=== PATIENT | female | born 1960 | race Caucasian/White ===

== ENCOUNTER 2017-09-12 14:00 | Inpatient (IN) | payer OTHER, SELFPAY ==
[2017-09-12] VITALS (7 sets, daily range): BP systolic 119–145; BP diastolic 57–80; PULSE 79–89; RESP 16; TEMP 36.6–36.8; O2SAT 97–99; BMI 22.0; BMI 22.1
--- NOTE | 2017-09-12 15:22 | EKG12_ITS ---
Test Reason : Blood Pressure : / mmHG Vent. Rate : 070 BPM Atrial Rate : 070 BPM P-R Int : 172 ms QRS Dur : 078 ms QT Int : 406 ms P-R-T Axes : 083 072 066 degrees QTc Int : 438 ms Normal sinus rhythm Normal ECG When compared with ECG of 16-AUG-2017 13:31, No significant change was found Confirmed by SHABANA MARTINES ([id number]), editorial cartoonist MARSHA CARROLL ([id number]) on 09/19/2017 11:40:39 AM Referred By: Andrés Helms Confirmed By:SHABANA MARTINES
--- NOTE | 2017-09-12 16:05 | HP.PCM_ITS ---
Problem List (1) Seizure disorder Status: Chronic (2) Hyponatremia Status: Acute History of Present Illness Date of Admission: 09/12/17 Chief Complaint: Abnormal labs The patient is a 57 year old F with PMHx with seizure disorder, chronic hyponatremia who comes in from her PCPs office with abnormal blood work suggestive of sodium of 123. Patient complains of his symptoms are only a few months old. She started having seizures as well as memory problems. Has followed up with a box sealing machine catcher 09/09/2017. Patient reports that she has had a PET scan done and biopsy of a nodule to follow-up for workup for lung cancer. She has stopped smoking. has her symptoms all written down. Patient admits to feeling very thirsty all the time and thinks maybe she drinks about 2 L of fluid every day. She has also recently followed up with a neurologist and was seen by the nurse practitioner who started her on Aricept and increase her Keppra to 750 mg twice daily. Complains of feeling fatigued, denies any fever or chills or shortness of breath. Denies passing large volumes of urine. Past Medical History Past Medical History (Chronic Problems): Chronic Problems (Last Reviewed 09/09/17 @ 13:38 by Denisse Chan) Seizure disorder (Chronic) Tobacco dependence in remission (Chronic) Allergies No Known Allergies Allergy (Verified 09/09/17 13:27) Home Medications: Ambulatory Orders Medication Instructions Recorded Donepezil HCl 10 mg PO QHS 09/12/17 Levetiracetam 750 mg PO Q12H 09/12/17 Surgical History: - - Bilateral carpal tunnel surgery, bilateral hammertoe surgery, lung biopsy Psychiatric History: No pertinent psych hx Lives: Spouse/ Significant Other Smoking Status: Former smoker Alcohol: Occasional Drugs: None - *Family History Maternal Family History: Family History (Last Reviewed 09/09/17 @ 13:27 by Denisse Chan) Mother Breast cancer Father Cancer History Items: - - no CVA Review of Systems Constitutional: Reports: Anorexia, Weakness. Denies: Chills, Fever, Weight Change HEENT: Denies: Head Aches, Hearing Changes, Sinus Congestion, Sinus Drainage Cardiovascular: Denies: Chest Pain, Claudication, Orthopnea, Palpitations, Paroxysmal Noc. Dyspnea Respiratory: Denies: Cough, Hemoptysis, Shortness of breath at rest, Sputum production Gastrointestinal: Denies: Abdominal Pain, Hematemesis, Hematochezia, Nausea, Vomiting Genitourinary: Denies: Dysuria, Frequency, Hematuria Musculoskeletal: Denies: Joint Pain, Joint Tenderness Skin: Denies: Rash, Wounds Neurological: Denies: Difficulty swallowing, Focal weakness, Numbness, Tingling Psychiatric: Denies: Anxiety, Depression, Homicidal Ideations, Suicidal Ideations Endocrine: Denies: Change in Body Habitus, Heat/ Cold Intolerance, Polyuria, Hx of Irradiation Hematologic/ Lymphatic: Denies: Easy Bruising, Easy Bleeding VTE Information - Inpt Only VTE Present on Admission: No VTE Pharm Prophylaxis ordered?: Yes - Physical Exam General: Alert, Oriented x3, Cooperative, No apparent distress HEENT: Atraumatic, PERRLA, EOMI, Normocephalic Neck: Supple Lungs: Clear to auscultation, Normal air movement Cardiovascular: Regular rate, Regular Rhythm, Normal S1, Normal S2, No murmurs Abdomen: Bowel Sounds Present, Soft, Non Tender, Non-Distended, No Hepato- splenomegaly Extremities: No edema Skin: No rashes, No breakdown Musculoskeletal: No Tenderness to Palpation of Joints or Extremities Lymphatic: No Cervical, Supraclavicular, or Inguinal Adenopathy Neurological: Cranial nerves II-XII grossly intact Psych/Mental Status: Normal Affect, Flat Affect - easily tearing up. Vital Signs Temp Pulse Resp BP Pulse Ox 97.9 F 79 16 124/73 H 99 09/12/17 14:40 09/12/17 15:11 09/12/17 14:40 09/12/17 14:42 09/12/17 14:40 Oxygen Delivery Method Room Air Weight: 62 kg Body Mass Index (BMI) 22.0 Finger Stick Blood Glucose 97 Assessment/Plan 57-year-old female with recent history of seizure disorder, amnesia/cognitive impairment, chronic hyponatremia, ongoing since the last 2 months, former smoker , history of lung nodule status post biopsy( PER PATIENT, DO NOT SEE IT IN THE SYSTEM) in as a direct admit with abnormal blood work 1. Hyponatremia, chronic, goes all the way back to July 2017, no acute change from baseline of around 126, repeat sodium in the hospital is 126 from 123, sending for possible SIADH. Plan: admit patient to PCU, workup for hyponatremia in place with urine sodium, urine electrolytes, urine creatinine, urine osmolality, continue gentle IV fluids, will also check TSH, nephrology consult, repeat blood work in a.m. 2. Seizure disorder, on Keppra, will put on seizure precautions 3. History of lung nodule, status post recent lung biopsy box sealing machine catcher consulted 4. Cognitive impairment, following with neurology, started on Aricept, will continue on that with monitoring of heart rate 5. DVT PPx - Lovenox SC Code Visit Inpatient E&M: [id number] Init Hosp L3
[2017-09-12 16:18] LABS: Hemoglobin 11.6 g/dl (12.0-15.0); Mean Corp Hgb Conc 35.2 g/gl (32-36); Mean Platelet Vol. 8.6 fl (6.2-12.0); Platelet Count 278 K/mm3 (150-450); RBC Distribution Width CV 12.4 % (11.6-14.6); Red Blood Count 3.51 M/mm3 (4.2-5.4); White Blood Count 4.1 K/mm3 (4.4-11.0)
[2017-09-12 16:21] LABS: Scan Indicated on CBC? Y/N NO
--- NOTE | 2017-09-12 16:28 | EKG12_ITS ---
Test Reason : Blood Pressure : / mmHG Vent. Rate : 069 BPM Atrial Rate : 069 BPM P-R Int : 176 ms QRS Dur : 084 ms QT Int : 408 ms P-R-T Axes : 082 068 063 degrees QTc Int : 437 ms Normal sinus rhythm Normal ECG When compared with ECG of 12-SEP-2017 15:38, MANUAL COMPARISON REQUIRED, DATA IS UNCONFIRMED Confirmed by SHABANA MARTINES ([id number]), assignment desk editor MARSHA CARROLL ([id number]) on 09/19/2017 11:47:44 AM Referred By: Andrés Helms Confirmed By:SHABANA MARTINES
[2017-09-12 16:30] LABS: ALB/GLOB Ratio 1.1 RATIO (0.9-2.4); AST(SGOT) 22 U/L (15-37); Alanine Aminotransfer ALT/SGPT 36 U/L (12-78); Albumin, Serum 3.6 g/dL (3.4-5.0); Alkaline Phosphatase 78 U/L (45-117); Anion Gap 7 (5-15); BUN 6 mg/dL (7-18); BUN/Creat Ratio 9.7 RATIO (10-20); Calcium,Total 8.3 mg/dL (8.5-10.1); Chloride 92 mmol/L (98-107); Creatinine, Serum 0.62 mg/dL (0.55-1.02); EST Glomerular Filtration Rate 105 mL/min (>60); Est Glom Filt Rate - Afr Amer 127 mL/min (>60); Estimated Creatinine Clearance 91.46 ml/min; Globulin 3.3 g/dL (2.2-4.2); Glucose 86 mg/dL (70-110); Magnesium 1.9 mg/dL (1.6-2.6); Protein, Total 6.9 g/dL (6.4-8.2); Sodium Level 126 mmol/L (136-145)
[2017-09-12 16:42] LABS: Osmolality, Serum 258 mOsm/KG (275-295)
[2017-09-12] MEDS: Enoxaparin 40 MG/0.4 ML Syringe SC (16:52)
[2017-09-12] MEDS: 0.9% Normal Saline 1,000 ML 75 ML IV (16:52)
[2017-09-12 18:34] LABS: Bacteria 0 SEEN /hpf (None Seen); Mucous, Urine 0 SEEN /hpf (<or=2+); White Blood Cells 0 SEEN /hpf (0-5)
[2017-09-12 18:38] LABS: Color, Urine Straw (Yellow); Glucose, Dipstick Normal (Normal); Ketone-Dipstick Negative (Negative); Leukocyte Esterase-Dipstick Negative /ul (Negative); Nitrite-Dipstick Negative (Negative); Occult Blood-Urine 150 /ul (Negative); Protein-Dipstick Negative (Negative); Urine Bilirubin Dipstick Negative (Negative); Urine Clarity Clear (Clear); Urine Urobilinogen Normal (Normal)
[2017-09-12 19:00] LABS: Protein, Urine (Random) < 6.0 mg/dL (<11.9)
[2017-09-12 19:03] LABS: Urine Chloride 83 mmol/L (Not Establ.); Urine Sodium 87 mmol/L (Not Establ.)
[2017-09-12 19:11] LABS: Red Blood Cells-Urine 5-10 SEEN /hpf (0-5); Squamous Epithelial Cells - UA 0-5 SEEN /hpf (5-10)
[2017-09-12 19:22] LABS: Osmolality, Urine 279 mOsm/KG
[2017-09-12] MEDS: levETIRAcetam 750 MG Tablet PO (20:14)
[2017-09-12 20:17] LABS: Thyroid Stim Hormone (TSH) 0.58 uIU/mL (0.358-3.74)
[2017-09-13] VITALS (7 sets, daily range): BP systolic 130–135; BP diastolic 65–70; PULSE 67–89; RESP 12–18; TEMP 36.7–36.8; O2SAT 97–99
[2017-09-13 06:05] LABS: Absolute Lymphocyte Count 1.31 X10^3/ul (0.83-4.51); Absolute Neutrophil Count 2.1 X10^3/uL (2.0-7.7); Basophil# 0.04 X10^3/uL; Basophil% 0.9 % (0-1); Eosinophil# 0.19 X10^3/uL; Eosinophils% 4.4 % (0-5); Hematocrit 32.5 % (37-47); Hemoglobin 11.2 g/dl (12.0-15.0); Lymphocyte # 1.31 X10^3/ul (4.0); Mean Corp Hgb Conc 34.5 g/gl (32-36); Mean Corpuscular Hgb 32.4 pg (27.0-32.0); Mean Corpuscular Volume 93.9 fL (81-99); Mean Platelet Vol. 8.6 fl (6.2-12.0); Monocyte# 0.73 X10^3/uL; Monocyte% 16.7 % (0-10); Neutrophil # 2.08 X10^3/uL (2.7-7.7); Neutrophil % 47.8 % (47-70); Platelet Count 284 K/mm3 (150-450); RBC Distribution Width CV 12.5 % (11.6-14.6); RBC Distribution Width SD 42.2 fl (35.1-43.9); Red Blood Count 3.46 M/mm3 (4.2-5.4); White Blood Count 4.4 K/mm3 (4.4-11.0)
[2017-09-13 06:06] LABS: POSITIVE COUNT NO; POSITIVE DIFFERENTIAL NO; POSITIVE MORPHOLOGY NO
[2017-09-13 06:11] LABS: Prothrombin Time (Protime)PT. 12.8 SECONDS (11.7-14.9)
[2017-09-13 06:22] LABS: Anion Gap 7 (5-15); BUN 7 mg/dL (7-18); BUN/Creat Ratio 11.1 RATIO (10-20); Calcium,Total 8.5 mg/dL (8.5-10.1); Chloride 97 mmol/L (98-107); Creatinine, Serum 0.63 mg/dL (0.55-1.02); EST Glomerular Filtration Rate 103 mL/min (>60); Est Glom Filt Rate - Afr Amer 125 mL/min (>60); Estimated Creatinine Clearance 90.01 ml/min; Glucose 82 mg/dL (70-110); Sodium Level 130 mmol/L (136-145)
--- NOTE | 2017-09-13 08:41 | CON.PCM_ITS ---
Problem List (1) Lung nodule Status: Acute (2) Hyponatremia Status: Acute (3) Seizure disorder Status: Chronic (4) Tobacco dependence in remission Status: Chronic (5) Abnormal CAT scan Status: Acute (6) TGA (transient global amnesia) Status: Acute Reason for Consult Date of Consultation: 09/13/17 Reason for Consultation: lung nodule, ?SIADH History of Present Illness: The patient is a 57 year old F with a past medical history as below, multiple presentations to the emergency room for altered mental status/seizures, recently seen in the pulmonary clinic on 09/[address] Vargas, presents to [facility] as a direct admit from her PCPs office for abnormal blood work, hyponatremia. 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 She reports she started having seizures and memory problems a couple of months ago and is following with neurology. Her medications have been adjusted for persistent seizures. CTA chest was obtained on 08/29/17 and showed evidence of subcarinal and bilateral hilar adenopathy, along with a 4 mm noncalcified lung nodule in the right lower lobe. There was additional note of a potential lytic lesion in the patient's spine. The patient had a PET scan on 09/06/17 at [facility] in [place] which revealed hypermetabolic mediastinal lymphadenopathy, concerning for malignant process. There is also asymmetric increased activity within the right subscapularis muscle without underlying mass or abnormality, possibly related to trauma. There were multiple subcentimeter lung nodules, which findings were too small to be accurately characterized by PET. There are also findings concerning for right breast implant rupture. At her pulmonary visit 09/09/17, the abnormal CTA of the chest findings were reviewed with patient and she decided to proceed with a mediastinal lymph node evaluation via EBUS. According to the medical record, the patient is scheduled for biopsy on 09/27/17. She has quit smoking. She does have an extensive smoking history of 2 packs a day for 40 years (80 pack years). Patient reports her last seizure was on Saturday. She denies any need for oxygen supplementation at home. Patient denies any shortness of breath, chest pain or tightness, cough, sputum production, hemoptysis, weakness, palpitations, or orthopnea. She denies any headaches or dizziness. She denies any muscle cramping. She reports she typically drinks beer on the weekends, on average she will have 2 beers on Saturday and 2 beers on Saturday. Otherwise, her states he does not allow her to drink anymore than that. Blood work on arrival revealed WBC of 4.1, hemoglobin 11.6 and hematocrit 33. Sodium was low at 126 and chloride 92. When 6 and creatinine of 0.62. Osmolality was low at 258. Calcium 8.3. TSH on the low side of normal at 0.58 and liver function tests were normal. Urinalysis was negative for infection, urine osmolality 279. Urine sodium 87. There was blood in her urine. Past Medical History Past Medical History (Chronic Problems): Chronic Problems (Last Reviewed 09/09/17 @ 13:38 by Denisse Chan) Seizure disorder (Chronic) Tobacco dependence in remission (Chronic) Allergies No Known Allergies Allergy (Verified 09/09/17 13:27) Home Medications: Ambulatory Orders Medication Instructions Recorded Donepezil HCl 10 mg PO QHS 09/12/17 Levetiracetam 750 mg PO Q12H 09/12/17 Surgical History: - - Bilateral carpal tunnel surgery, bilateral hammertoe surgery, lung biopsy Psychiatric History: No pertinent psych hx Lives: Spouse/ Significant Other Smoking Status: Former smoker Tobacco Use: Cigarettes Alcohol: Occasional - total 4 beers/weekend, none thru the week Drugs: None - *Family History Maternal Family History: Family History (Last Reviewed 09/09/17 @ 13:27 by Denisse Chan) Mother Breast cancer Father Cancer History Items: - - no CVA Review of Systems Constitutional: Reports: Anorexia. Denies: Chills, Fever, Night Sweats, Malaise , Weakness, Weight Change, Fatigue Eyes: Denies: Blurred vision, Double vision, Vision Change HEENT: Reports: Sinus Congestion. Denies: Difficulty Swallowing, Head Aches, Nasal bleeding, Nasal Congestion, Post Nasal Drip, Sinus Drainage, Sore Throat, Visual Changes Cardiovascular: Denies: Chest Pain, Chest Tightness, Edema, Light Headedness, Orthopnea, Palpitations, Paroxysmal Noc. Dyspnea, Syncope Respiratory: Denies: Cough, Hemoptysis, Shortness of Breath, Sputum production, Wheezing Gastrointestinal: Denies: Abdominal Pain, Constipation, Diarrhea, Dyspepsia, Hematemesis, Hematochezia, Nausea, Melena, Vomiting Genitourinary: Denies: Dysuria, Hematuria Musculoskeletal: Denies: Muscle pain, Neck Pain Skin: Denies: Dryness, Pruritis, Rash Neurological: Reports: Seizures. Denies: Change in Speech, Confusion, Difficulty swallowing, Focal weakness, Headaches, Numbness, Tingling, Tremor Psychiatric: Reports: Anxiety, Depression. Denies: Suicidal Ideations Endocrine: Reports: Polydipsia. Denies: Change in Body Habitus, Polyuria, Hx of Thyroiditis Hematologic/ Lymphatic: Denies: Adenopathy, Anemia, Easy Bruising, Easy Bleeding , Hx of blood clot Patient Problems: Active and Suspected Problems (Last Reviewed 09/09/17 @ 13:38 by Denisse Chan ) Lung nodule (Acute) Subjective: Patient was seen and examined. She is sitting up in the chair with her present. She is quite tearful. States she just wants to go home. Denies any respiratory issues, no shortness of breath, chest pain, palpitations, cough, sputum production. No nausea or vomiting. Reports she has been trying to control her hyponatremia at home by eating a lot of salt every chance she gets. Patient reports less confusion this morning, confirms. Objective: No acute events overnight. Patient remains afebrile and hemodynamically stable. She is saturating in the upper 90s on room air. - Physical Exam General: Alert, Oriented x3, Cooperative, No apparent distress, - - tearful HEENT: Atraumatic, Normocephalic Oral: Moist Mucosa, No Gingival or Mucosal Lesions/ Ulcerations Neck: Supple, No Nodes, Trachea Midline Lungs: Clear to auscultation, No rhonchi, No wheeze, No rales, Diminished Cardiovascular: Regular rate, Regular Rhythm, Normal S1, Normal S2, No murmurs, No rub noted, No Gallop Abdomen: Bowel Sounds Present, Soft, Non Tender, Non-Distended Extremities: No clubbing, No cyanosis, No edema, Capillary Refill Less than 3 Seconds, No Calf Tenderness, Peripheral Pulses Normal Skin: No rashes, No breakdown Musculoskeletal: No Tenderness to Palpation of Joints or Extremities Lymphatic: - - no lymphadenopathy noted Neurological: Cranial nerves II-XII grossly intact, Neuro grossly intact, Motor Exam 5/5 strength throughout Psych/Mental Status: Appropriate, Depressed, - - tearful. cooperative and conversive. Vital Signs Temp Pulse Resp BP Pulse Ox 98.3 F 80 18 130/65 H 97 09/13/17 03:00 09/13/17 03:02 09/13/17 03:00 09/13/17 03:00 09/13/17 03:00 Oxygen Delivery Method Room Air Weight: 136 lb 10.986 oz Body Mass Index (BMI) 22.0 Finger Stick Blood Glucose 97 Intake and Output for Last 24 Hours 09/11/17 09/12/17 09/13/17 23:59 23:59 23:59 Intake Total 1274 / 1274 412 / 412 Balance 1274 / 1274 412 / 412 Laboratory Tests Past 24 Hrs 09/12/17 09/12/17 09/12/17 15:51 15:51 15:51 WBC 4.1 L RBC 3.51 L Hgb 11.6 L Hct 33.0 L MCV 94.0 MCH 33.0 H MCHC 35.2 RDW 12.4 RDW Differential 42.0 Plt Count 278 MPV 8.6 Immature Gran % (Auto) Neut % (Auto) Lymph % (Auto) [place] % (Auto) Eos % (Auto) Baso % (Auto) Absolute Neuts (auto) Absolute Lymphs (auto) Total Counted PT INR Sodium 126 L Potassium 4.0 Chloride 92 L Carbon Dioxide 27.0 Anion Gap 7 BUN 6 L Creatinine 0.62 Estim Creat Clear Calc 91.46 Est GFR (MDRD) Af Amer 127 Est GFR (MDRD) Non-Af 105 BUN/Creatinine Ratio 9.7 L Glucose 86 Serum Osmolality 258 L Calcium 8.3 L Magnesium 1.9 Total Bilirubin 0.60 AST 22 ALT 36 Alkaline Phosphatase 78 Total Protein 6.9 Albumin 3.6 Globulin 3.3 Albumin/Globulin Ratio 1.1 TSH Urine Color Urine Clarity Urine pH Ur Specific [place] Urine Protein Urine Glucose (UA) Urine Ketones Urine Occult Blood Urine Nitrite Urine Bilirubin Urine Urobilinogen Ur Leukocyte Esterase Urine RBC Urine WBC Ur Squamous Epith Cells Urine Bacteria Urine Mucus Urine Osmolality U Random Total Protein Ur Random Sodium Urine Creatinine Urine Potassium Urine Chloride 09/12/17 09/12/17 09/12/17 15:51 17:30 17:30 WBC RBC Hgb Hct MCV MCH MCHC RDW RDW Differential Plt Count MPV Immature Gran % (Auto) Neut % (Auto) Lymph % (Auto) [place] % (Auto) Eos % (Auto) Baso % (Auto) Absolute Neuts (auto) Absolute Lymphs (auto) Total Counted PT INR Sodium Potassium Chloride Carbon Dioxide Anion Gap BUN Creatinine Estim Creat Clear Calc Est GFR (MDRD) Af Amer Est GFR (MDRD) Non-Af BUN/Creatinine Ratio Glucose Serum Osmolality Calcium Magnesium Total Bilirubin AST ALT Alkaline Phosphatase Total Protein Albumin Globulin Albumin/Globulin Ratio TSH 0.58 Urine Color Urine Clarity Urine pH Ur Specific [place] Urine Protein Urine Glucose (UA) Urine Ketones Urine Occult Blood Urine Nitrite Urine Bilirubin Urine Urobilinogen Ur Leukocyte Esterase Urine RBC Urine WBC Ur Squamous Epith Cells Urine Bacteria Urine Mucus Urine Osmolality 279 U Random Total Protein Ur Random Sodium Urine Creatinine 24.30 Urine Potassium Urine Chloride 09/12/17 09/12/17 09/12/17 17:30 17:30 17:30 WBC RBC Hgb Hct MCV MCH MCHC RDW RDW Differential Plt Count MPV Immature Gran % (Auto) Neut % (Auto) Lymph % (Auto) [place] % (Auto) Eos % (Auto) Baso % (Auto) Absolute Neuts (auto) Absolute Lymphs (auto) Total Counted PT INR Sodium Potassium Chloride Carbon Dioxide Anion Gap BUN Creatinine Estim Creat Clear Calc Est GFR (MDRD) Af Amer Est GFR (MDRD) Non-Af BUN/Creatinine Ratio Glucose Serum Osmolality Calcium Magnesium Total Bilirubin AST ALT Alkaline Phosphatase Total Protein Albumin Globulin Albumin/Globulin Ratio TSH Urine Color Straw Urine Clarity Clear Urine pH 7.0 Ur Specific [place] 1.010 Urine Protein Negative Urine Glucose (UA) Normal Urine Ketones Negative Urine Occult Blood 150 H Urine Nitrite Negative Urine Bilirubin Negative Urine Urobilinogen Normal Ur Leukocyte Esterase Negative Urine RBC 5-10 SEEN Urine WBC 0 SEEN Ur Squamous Epith Cells 0-5 SEEN Urine Bacteria 0 SEEN Urine Mucus 0 SEEN Urine Osmolality U Random Total Protein < 6.0 Ur Random Sodium 87 Urine Creatinine Urine Potassium 23.0 Urine Chloride 83 09/13/17 09/13/17 09/13/17 05:36 05:36 05:36 WBC 4.4 RBC 3.46 L Hgb 11.2 L Hct 32.5 L MCV 93.9 MCH 32.4 H MCHC 34.5 RDW 12.5 RDW Differential 42.2 Plt Count 284 MPV 8.6 Immature Gran % (Auto) 0.200 Neut % (Auto) 47.8 Lymph % (Auto) 30.0 [place] % (Auto) 16.7 H Eos % (Auto) 4.4 Baso % (Auto) 0.9 Absolute Neuts (auto) 2.1 Absolute Lymphs (auto) 1.31 Total Counted Not Reportable PT 12.8 INR 1.0 Sodium 130 L Potassium 4.0 Chloride 97 L Carbon Dioxide 26.0 Anion Gap 7 BUN 7 Creatinine 0.63 Estim Creat Clear Calc 90.01 Est GFR (MDRD) Af Amer 125 Est GFR (MDRD) Non-Af 103 BUN/Creatinine Ratio 11.1 Glucose 82 Serum Osmolality Calcium 8.5 Magnesium Total Bilirubin AST ALT Alkaline Phosphatase Total Protein Albumin Globulin Albumin/Globulin Ratio TSH Urine Color Urine Clarity Urine pH Ur Specific [place] Urine Protein Urine Glucose (UA) Urine Ketones Urine Occult Blood Urine Nitrite Urine Bilirubin Urine Urobilinogen Ur Leukocyte Esterase Urine RBC Urine WBC Ur Squamous Epith Cells Urine Bacteria Urine Mucus Urine Osmolality U Random Total Protein Ur Random Sodium Urine Creatinine Urine Potassium Urine Chloride Assessment/Plan Active and Suspected Problems (Last Reviewed 09/09/17 @ 13:38 by Denisse Chan ) Lung nodule (Acute) RECOMMENDATIONS 1. Daily BMP 2. Increase activity as tolerated, with assist secondary to fall risk 3. Restrict water intake 4. Await nephrology consultation 5. Continue Aricept and Keppra 6. Plan to proceed with lung biopsy on 09/27. 7. Patient would benefit from baseline pulmonary function tests in the future IMPRESSIONS 1. Lung nodule CT of the chest 08/29 was negative for PE and showed mediastinal and right hilar adenopathy. There was a 4 mm noncalcified nodule in the right lower lobe and portable lytic lesion in vertebral body of T7-T8. PET scan revealed hypermetabolic mediastinal lymphadenopathy, concerning for malignant process. There is also asymmetric increased activity within the right subscapularis muscle without underlying mass or abnormality, possibly related to trauma. There were multiple subcentimeter lung nodules, which findings were too small to be accurately characterized by PET. There are also findings concerning for right breast implant rupture. Patient is currently not having any chest pain, shortness of breath, cough or sputum production, hemoptysis. She is anxious to have biopsy and have a diagnosis. Patient not requiring any oxygen supplementation at this time. Her lung nodules are possible etiology of her hyponatremia, workup is currently underway. 2. Hyponatremia See #1. Serum osmolality low at 258, urine osmolality 279. Urine random sodium 87. Nephrology has been consulted. Patient does drink beer, on average 4 beers per weekend but none through the week. Unlikely hyponatremia related to alcohol intake. Having symptoms of seizures and confusion. She is not on any diuretics her GFR is 103. May have some adrenal insufficiency, workup underway. 3. Seizure disorder/cognitive disorder/Tobacco abuse, in remission Complicates care, management, recovery, and prognosis. Ongoing smoking cessation was encouraged. Patient quit smoking on August 16, 2017. Patient should continue to be monitored for seizures. She is following with neurology. Patient recently had a mammogram which did not detect any masses. This note was generated with [employer] dictation software. It may contain incorrect words, spelling, and punctuation that were not noted in checking the note before signing.
[2017-09-13] MEDS: levETIRAcetam 750 MG Tablet PO (09:27)
[2017-09-13] MEDS: Enoxaparin 40 MG/0.4 ML Syringe SC (09:28)
--- NOTE | 2017-09-13 11:13 | CASEMGMT ---
This RN CM to room to complete CM assessment and Physical therapy is at bedside with pt at this time. SStaten RN CM
--- NOTE | 2017-09-13 14:34 | PCM.CONS.R ---
Problem List (1) Hyponatremia Status: Acute Consultation - Renal 09/13/17 PCP/ Referring MD: Requesting physician: Dr Patel Primary care physician: Andrés Helms MD Reason for Consultation:: hyponatremia - History of Present Illness History of Present Illness: The patient is a 57 year old F admitted to the hospital after she was asked to comment due to low sodium values. Apparently she has never had any medical issues since July. Since then he has had several hospitalizations related to altered mental status, seizures. Recently diagnosed with possible malignancy Had a biopsy. She was told that results show malignancy. I do not see that pathology report Sodium values were 123 as outpatient. 126 yesterday and up to 130 today. denies any new complaints - Allergies Allergies: Allergies No Known Allergies Allergy (Verified 09/09/17 13:27) - Current Medications Current Medications: Current Medications Al Hydroxide/Mg Hydroxide (Mylanta Ii) 30 ml PO Q6H PRN PRN PRN Reason: Gastric burning Donepezil HCl (Aricept) 10 mg PO QHS [facility] Last Admin: 09/12/17 19:40 Dose: Not Given Enoxaparin Sodium (Lovenox) 40 mg SC DAILY@1000 CORA Last Admin: 09/13/17 09:28 Dose: 40 mg Levetiracetam (Keppra) 750 mg PO Q12H [facility] Last Admin: 09/13/17 09:27 Dose: 750 mg Ondansetron HCl (Zofran) 4 mg IV Q8H PRN PRN PRN Reason: NAUSEA Promethazine HCl (Phenergan (Ll)) 12.5 mg IV Q6H PRN PRN PRN Reason: NAUSEA/VOMITING Psyllium Hydrophilic Mucilloid (Metamucil) 1 packet PO DAILY PRN PRN PRN Reason: CONSTIPATION Senna/Docusate Sodium (Senokot-S, Belkys-Colace) 2 tablet PO BID PRN PRN Reason: Constipation Sodium Chloride () 5 - 30 ml IV UD PRN PRN Reason: SALINE FLUSH Zolpidem Tartrate (Ambien (Generic)) 5 mg PO QHS PRN PRN PRN Reason: INSOMNIA - Past Medical History Past Medical History (Chronic Problems): Chronic Problems (Last Reviewed 09/09/17 @ 13:38 by Denisse Chan) Seizure disorder (Chronic) Tobacco dependence in remission (Chronic) - Past Surgical History Surgical History: - - Bilateral carpal tunnel surgery, bilateral hammertoe surgery, lung biopsy - Social History Smoking Status: Former smoker Alcohol: Occasional - total 4 beers/weekend, none thru the week Drugs: None - Family History Maternal Family History: Family History (Last Reviewed 09/09/17 @ 13:27 by Denisse Chan) Mother Breast cancer Father Cancer History Items: - - no CVA Review of Systems Constitutional: Denies: Chills, Fever, Weight Change HEENT: Denies: Head Aches, Sinus Congestion, Sinus Drainage Cardiovascular: Denies: Chest Pain, Palpitations Respiratory: Denies: Cough, Shortness of breath at rest, Sputum production Gastrointestinal: Denies: Abdominal Pain, Nausea, Vomiting Genitourinary: Denies: Dysuria Musculoskeletal: Denies: Joint Pain, Joint Tenderness Skin: Denies: Rash, Wounds Neurological: Denies: Numbness, Tingling, Focal weakness Psychiatric: Denies: Anxiety, Depression, Homicidal Ideations, Suicidal Ideations Hematologic/ Lymphatic: Denies: Easy Bruising, Easy Bleeding Patient Problems: Active and Suspected Problems (Last Reviewed 09/09/17 @ 13:38 by Denisse Chan) Lung nodule (Acute) - Physical Exam General: Alert, Oriented x3, Cooperative HEENT: Atraumatic, PERRLA, EOMI, Normocephalic Neck: Supple, No JVD, Negative Carotid Bruits Lungs: Clear to auscultation, Normal air movement Cardiovascular: Regular rate, No murmurs Abdomen: Bowel Sounds Present, Soft, Non Tender Extremities: No edema, Capillary Refill Less than 3 Seconds Skin: No rashes, No breakdown Musculoskeletal: No Tenderness to Palpation of Joints or Extremities Neurological: Cranial nerves II-XII grossly intact Psych/Mental Status: Normal Affect, Appropriate Vital Signs Temp Pulse Resp BP Pulse Ox 98.3 F 82 16 135/66 H 99 09/13/17 09:25 09/13/17 11:00 09/13/17 09:25 09/13/17 09:25 09/13/17 10:33 Oxygen Delivery Method Room Air Weight: 62 kg Body Mass Index (BMI) 22.0 Finger Stick Blood Glucose 97 Intake and Output for Last 24 Hours 09/11/17 09/12/17 09/13/17 23:59 23:59 23:59 Intake Total 1274 / 1274 592 / 592 Balance 1274 / 1274 592 / 592 Laboratory Tests Past 24 Hrs 09/12/17 09/12/17 09/12/17 15:51 15:51 15:51 WBC 4.1 L RBC 3.51 L Hgb 11.6 L Hct 33.0 L MCV 94.0 MCH 33.0 H MCHC 35.2 RDW 12.4 RDW Differential 42.0 Plt Count 278 MPV 8.6 Immature Gran % (Auto) Neut % (Auto) Lymph % (Auto) Luce % (Auto) Eos % (Auto) Baso % (Auto) Absolute Neuts (auto) Absolute Lymphs (auto) Total Counted PT INR Sodium 126 L Potassium 4.0 Chloride 92 L Carbon Dioxide 27.0 Anion Gap 7 BUN 6 L Creatinine 0.62 Estim Creat Clear Calc 91.46 Est GFR (MDRD) Af Amer 127 Est GFR (MDRD) Non-Af 105 BUN/Creatinine Ratio 9.7 L Glucose 86 Serum Osmolality 258 L Calcium 8.3 L Magnesium 1.9 Total Bilirubin 0.60 AST 22 ALT 36 Alkaline Phosphatase 78 Total Protein 6.9 Albumin 3.6 Globulin 3.3 Albumin/Globulin Ratio 1.1 TSH Urine Color Urine Clarity Urine pH Ur Specific [place] Urine Protein Urine Glucose (UA) Urine Ketones Urine Occult Blood Urine Nitrite Urine Bilirubin Urine Urobilinogen Ur Leukocyte Esterase Urine RBC Urine WBC Ur Squamous Epith Cells Urine Bacteria Urine Mucus Urine Osmolality U Random Total Protein Ur Random Sodium Urine Creatinine Urine Potassium Urine Chloride 09/12/17 09/12/17 09/12/17 15:51 17:30 17:30 WBC RBC Hgb Hct MCV MCH MCHC RDW RDW Differential Plt Count MPV Immature Gran % (Auto) Neut % (Auto) Lymph % (Auto) Luce % (Auto) Eos % (Auto) Baso % (Auto) Absolute Neuts (auto) Absolute Lymphs (auto) Total Counted PT INR Sodium Potassium Chloride Carbon Dioxide Anion Gap BUN Creatinine Estim Creat Clear Calc Est GFR (MDRD) Af Amer Est GFR (MDRD) Non-Af BUN/Creatinine Ratio Glucose Serum Osmolality Calcium Magnesium Total Bilirubin AST ALT Alkaline Phosphatase Total Protein Albumin Globulin Albumin/Globulin Ratio TSH 0.58 Urine Color Urine Clarity Urine pH Ur Specific [place] Urine Protein Urine Glucose (UA) Urine Ketones Urine Occult Blood Urine Nitrite Urine Bilirubin Urine Urobilinogen Ur Leukocyte Esterase Urine RBC Urine WBC Ur Squamous Epith Cells Urine Bacteria Urine Mucus Urine Osmolality 279 U Random Total Protein Ur Random Sodium Urine Creatinine 24.30 Urine Potassium Urine Chloride 09/12/17 09/12/17 09/12/17 17:30 17:30 17:30 WBC RBC Hgb Hct MCV MCH MCHC RDW RDW Differential Plt Count MPV Immature Gran % (Auto) Neut % (Auto) Lymph % (Auto) Luce % (Auto) Eos % (Auto) Baso % (Auto) Absolute Neuts (auto) Absolute Lymphs (auto) Total Counted PT INR Sodium Potassium Chloride Carbon Dioxide Anion Gap BUN Creatinine Estim Creat Clear Calc Est GFR (MDRD) Af Amer Est GFR (MDRD) Non-Af BUN/Creatinine Ratio Glucose Serum Osmolality Calcium Magnesium Total Bilirubin AST ALT Alkaline Phosphatase Total Protein Albumin Globulin Albumin/Globulin Ratio TSH Urine Color Straw Urine Clarity Clear Urine pH 7.0 Ur Specific [place] 1.010 Urine Protein Negative Urine Glucose (UA) Normal Urine Ketones Negative Urine Occult Blood 150 H Urine Nitrite Negative Urine Bilirubin Negative Urine Urobilinogen Normal Ur Leukocyte Esterase Negative Urine RBC 5-10 SEEN Urine WBC 0 SEEN Ur Squamous Epith Cells 0-5 SEEN Urine Bacteria 0 SEEN Urine Mucus 0 SEEN Urine Osmolality U Random Total Protein < 6.0 Ur Random Sodium 87 Urine Creatinine Urine Potassium 23.0 Urine Chloride 83 09/13/17 09/13/17 09/13/17 05:36 05:36 05:36 WBC 4.4 RBC 3.46 L Hgb 11.2 L Hct 32.5 L MCV 93.9 MCH 32.4 H MCHC 34.5 RDW 12.5 RDW Differential 42.2 Plt Count 284 MPV 8.6 Immature Gran % (Auto) 0.200 Neut % (Auto) 47.8 Lymph % (Auto) 30.0 Luce % (Auto) 16.7 H Eos % (Auto) 4.4 Baso % (Auto) 0.9 Absolute Neuts (auto) 2.1 Absolute Lymphs (auto) 1.31 Total Counted Not Reportable PT 12.8 INR 1.0 Sodium 130 L Potassium 4.0 Chloride 97 L Carbon Dioxide 26.0 Anion Gap 7 BUN 7 Creatinine 0.63 Estim Creat Clear Calc 90.01 Est GFR (MDRD) Af Amer 125 Est GFR (MDRD) Non-Af 103 BUN/Creatinine Ratio 11.1 Glucose 82 Serum Osmolality Calcium 8.5 Magnesium Total Bilirubin AST ALT Alkaline Phosphatase Total Protein Albumin Globulin Albumin/Globulin Ratio TSH Urine Color Urine Clarity Urine pH Ur Specific [place] Urine Protein Urine Glucose (UA) Urine Ketones Urine Occult Blood Urine Nitrite Urine Bilirubin Urine Urobilinogen Ur Leukocyte Esterase Urine RBC Urine WBC Ur Squamous Epith Cells Urine Bacteria Urine Mucus Urine Osmolality U Random Total Protein Ur Random Sodium Urine Creatinine Urine Potassium Urine Chloride Assessment/Plan Active and Suspected Problems (Last Reviewed 09/09/17 @ 13:38 by Denisse Chan) Lung nodule (Acute) hyponatremia. Clinically euvolemic. No signs of volume overload. TSH is normal. I do not have a cortisol level. Urine osmolality is around 270 and urine sodium 87. 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 Sodium values are better at 130 today on further questioning, she tells me that she drinks significant amount of liquids up to 3 L per day For now Fluid restriction to 1.2 L per day Add salt tablets 1 g 3 times a day Since sodium values are up to 130, she can be discharged from renal standpoint We'll check a BMP next week We will arrange for follow-up in about 2-3 weeks
--- NOTE | 2017-09-13 14:47 | CASEMGMT ---
Face to Face with patient for initial transition planning/care coordination assessment. PRINCE MONK introduced self and role at [facility], pt/ voice understanding and consent to assessment at this time. Pt sitting up in chair in no distress at this time. Pt A/O x3 at this time and answers all questions appropriately at this time. Pt has moments of memory loss. Care providers, pharmacy, and demographics verified. See attached link. Pt voices no further concerns/needs at this time. Advised pt to ask for CM if any further questions/concerns/needs arise, voices understanding. PLAN: [place] PRINCE MONK
--- NOTE | 2017-09-13 14:48 | PCM.DC ---
- Discharge Diagnoses Current Active Problems: Current Active and Chronic Problems (Last Reviewed 09/09/17 @ 13:38 by Denisse Chan) Lung nodule (Acute) Reason(s) for Visit for Discharge Instructions: Abnormal blood work You will use the following diet at home:: Regular Your food should be the consistency of: Regular Your liquids should be the consistency of: Regular/Thin Discharge Activity: Return to Normal Activity Additional Instructions: Note changes to your medications. Restrict your total fluid intake to less than 1.5 L a day. Follow-up with the kidney doctor, neurologist and your primary care doctor Allergies/Adverse Reactions: Allergies No Known Allergies Allergy (Verified 09/09/17 13:27) Medications to take at Discharge Donepezil HCl 10 mg PO QHS 09/12/17 Levetiracetam 750 mg PO Q12H 09/12/17 Sodium Chloride 1 gm PO TID #90 tab 09/13/17 The following prescriptions were given: Sodium Chloride 1 gm PO TID #90 tab Orders to be completed after discharge: Basic Metabolic Profile (BMP) Time Frame: 1 Week, Location: Laboratory Basic Metabolic Profile (BMP) Time Frame: 1 Week, Location: Laboratory Primary Care Physician: Andrés Helms MD [Primary Care Provider] - Please follow up with your Primary Care Physician in: within 2 weeks Please Follow Up With: Morgan Cabrera MD When: within 2 weeks Proposed Discharge Date: 09/13/17
--- NOTE | 2017-09-13 14:56 | DS.PCM_ITS ---
Discharge Date and Diagnosis Date of Admission: 09/12/17 Date of Discharge: 09/13/17 - Primary Discharge Diagnosis Active and Suspected Problems (Last Reviewed 09/09/17 @ 13:38 by Denisse Chan ) Lung nodule (Acute) - Secondary Discharge Diagnosis Chronic Problems (Last Reviewed 09/09/17 @ 13:38 by Denisse Chan) Seizure disorder (Chronic) Tobacco dependence in remission (Chronic) Hospital Course and Treatment Nephrology Operations: None Procedures: None Summary of Care Provided: 57-year-old female with recent history of seizure disorder, global transient amnesia/cognitive impairment, chronic hyponatremia, ongoing since the last 2 months, former smoker, history of lung nodule status post biopsy( PER PATIENT, DO NOT SEE IT IN THE SYSTEM) in as a direct admit with abnormal blood work. Active management as follows: 1. Hyponatremia, chronic, secondary to SIADH, goes all the way back to July 2017, no acute change from baseline of around 126, repeat sodium in the hospital is 126 from 123, discharge sodium was 130, nephrology consulted, discharged on salt tablets and fluid restriction less than 1.5L 2. Seizure disorder, on Keppra 3. History of lung nodule, status post recent lung biopsy, will follow in the outpatient pulmonology. 4. Cognitive impairment, following with neurology, started on Aricept. Discharge Diet: No Restrictions, 6 Cup Fluid Restriction Discharge Activity: Return to Normal Activity Home Medications: Medications to take at Discharge Donepezil HCl 10 mg PO QHS 09/12/17 Levetiracetam 750 mg PO Q12H 09/12/17 Sodium Chloride 1 gm PO TID #90 tab 09/13/17 Following Prescrptions Were Given to Patient: Sodium Chloride 1 gm PO TID #90 tab Primary Care Physician: Andrés Helms MD [Primary Care Provider] - Please follow up with your Primary Care Physician in: within 2 weeks Please Follow Up With: Morgan Cabrera MD When: within 2 weeks Disposition: Home Minutes spent on discharge:: 25 Patient Condition:: Stable Meaningful Use Info Meaningful Use Diagnoses (Choose all that apply): None applicable Code Visit Inpatient E&M: 91211 Disch Hosp
== END 2017-09-13 15:15 | disposition home or self-care (01) | DRG 645 ==
PROVIDERS: Internal Medicine; Admitting Provider Internal Medicine; Family Provider Internal Medicine; PCP Internal Medicine; Visit Provider Internal Medicine
DX: E22.2 Syndrome of inappropriate secretion of antidiuretic hormone (principal); F17.211 Nicotine dependence, cigarettes, in remission; G40.909 Epilepsy, unspecified, not intractable, without status epilepticus; R91.1 Solitary pulmonary nodule; Z79.899 Other long term (current) drug therapy
CPT/HCPCS: 36415; 80048; 80053; 81001; 82436; 82570; 83735; 83930; 83935; 84133; 84156; 84300; 84443; 85025; 85027; 85610; 93005; 97802; J7030; A4216

== ENCOUNTER → 2017-09-19 08:17 | Outpatient (CLI) | payer OTHER, SELFPAY ==
[2017-09-19 09:55] LABS: Hematocrit 36.5 % (37-47); Hemoglobin 12.3 g/dl (12.0-15.0); Mean Corp Hgb Conc 33.7 g/gl (32-36); Mean Corpuscular Hgb 32.8 pg (27.0-32.0); Mean Corpuscular Volume 97.3 fL (81-99); Mean Platelet Vol. 8.8 fl (6.2-12.0); Platelet Count 300 K/mm3 (150-450); RBC Distribution Width CV 12.7 % (11.6-14.6); RBC Distribution Width SD 44.5 fl (35.1-43.9); Red Blood Count 3.75 M/mm3 (4.2-5.4); Scan Indicated on CBC? Y/N NO; White Blood Count 4.7 K/mm3 (4.4-11.0)
[2017-09-19 09:57] LABS: Prothrombin Time (Protime)PT. 13.2 SECONDS (11.7-14.9)
[2017-09-19 10:16] LABS: Albumin, Serum 3.7 g/dL (3.2-5.0); BUN 10 mg/dL (7-18); BUN/Creat Ratio 16.1 RATIO (10-20); Calcium,Total 8.7 mg/dL (8.5-10.1); Chloride 97 mmol/L (98-107); Creatinine, Serum 0.62 mg/dL (0.55-1.02); EST Glomerular Filtration Rate 104 mL/min (>60); Est Glom Filt Rate - Afr Amer 126 mL/min (>60); Glucose 79 mg/dL (70-110); Phosphorus 3.8 mg/dL (2.5-4.9); Potassium 4.4 mmol/L (3.5-5.1); Sodium Level 133 mmol/L (136-145)
== END ==
PROVIDERS: Internal Medicine; Internal Medicine Critical Care Medicine; Family Provider Internal Medicine; PCP Internal Medicine; Visit Provider Internal Medicine Nephrology
DX: E87.1 Hypo-osmolality and hyponatremia (principal); R93.8 Abnormal findings on diagnostic imaging of other specified body structures; F17.201 Nicotine dependence, unspecified, in remission
CPT/HCPCS: 36415; 80069; 85027; 85610

== ENCOUNTER 2017-09-27 11:17 | Day surgery (SDC) | payer OTHER, SELFPAY ==
[2017-09-12 14:42] VITALS: BP 124/73
[2017-09-20 08:59] VITALS: BP 134/85; BMI 22.7
[2017-09-27] VITALS (7 sets, daily range): BP systolic 116–147; BP diastolic 71–101; PULSE 75–118; RESP 16–20; TEMP 36.4–36.9; O2SAT 99–100; BMI 22.9
--- NOTE | 2017-09-27 | FLU_PTH ---
PATIENT: WALI ERICKSON [place] [facility] [id number] AGE/SX: 57/F ROOM: RE09/27/[address]: Dr. Ricky Vargas DO : 1960 BED: DIS: 09/27/2017 SPEC #: [id number] RECD: 09/27/17 13:00 STATUS: ARCENIO SCOOBY #: [id number] MATIAS: 09/27/17 00:[address]: Ricky Vargas DEPT: CYTOLOGY RECD BY: Bonifacio Hyman ENTERED: 09/30/17 09:02 SP TYPE: Fluid OTHR DR: Dr. Andrés Helms MD Tissues: A - Lung, NOS B - Lung, NOS C - Lung, NOS D - Lung, NOS E - Lung, NOS F - Lung, NOS G - Lung, NOS Procedures: Special Stain Group II Surgery Specimen Level IV Cytology Other HEADER OPERATION: Bronchoscopy with EBUS PRE-OP DIAGNOSIS: Mediastinal and hilar adenopathy TISSUE SUBMITTED: A ? 7 joy, B ? 7 joy, C ? 7 subcarina, D ? 10R, E ? 10 R, F ? 7, G ? 10R DIAGNOSIS CYTOLOGY A. EBUS aspiration #1, site 7, subcarina: Positive for malignant cells. B. EBUS aspiration #2, site 7, subcarina: Nondiagnostic. C. EBUS aspiration #3, site 7, subcarina: Positive for malignant cells. D. EBUS aspiration #4, site 10R: Positive for malignant cells. E. EBUS aspiration #5, site 10R: Positive for malignant cells. F. EBUS aspiration, site 7, subcarina (cell block): Positive for malignant cells consistent with small cell carcinoma. G. 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 AM:edward 10/01/17 COMMENT The specimen is evaluated at the time of procedure by Dr. Gaming. Immediate Evaluation: A. EBUS aspiration #1, site 7 joy: Positive for malignant cells. B. EBUS aspiration #2, site 7 joy: Nondiagnostic, blood only. C. EBUS aspiration #3, site 7 subcarina: Suspicious for malignant cells. Lymphocytes present. D. EBUS aspiration #4, site 10R: Positive for malignant cells. E. EBUS aspiration #5, site 10R: Positive for malignant cells. B. The specimen primarily contains blood. 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 Clinical correlation is suggested. CYTOLOGY STUDY Slides are reviewed. CYTOLOGY GROSS A - Received labeled with the patient's name and designated EBUS FNA, aspiration #1, site 7 joy. The specimen consists of two smears. The smears are submitted for immediate cytologic evaluation (wet read). B - Received labeled with the patient's name and designated EBUS FNA, aspiration #2, site 7 joy. The specimen consists of two smears. The smears are submitted for immediate cytologic evaluation (wet read). C - Received labeled with the patient's name and designated EBUS FNA, aspiration #3, site 7 subcarina. The specimen consists of two smears. The smears are submitted for immediate cytologic evaluation (wet read). D - Received labeled with the patient's name and designated EBUS FNA, aspiration #4, site 10R. The specimen consists of two smears. The smears are submitted for immediate cytologic evaluation (wet read). E - Received labeled with the patient's name and designated EBUS FNA, aspiration #5, site 10R. The specimen consists of two smears. The smears are submitted for immediate cytologic evaluation (wet read). F ? Received in RPMI and labeled with the patient's name and designated ?site 7? and submitted for cytology preparation including cell block. G - Received in RPMI and labeled with the patient's name and designated ?site 10R? and submitted for cytology preparation including cell block. / DORIS:edward 09/27/17 TC: 0 CPT: 94712 x2, 77396 x2, 38009 x2 ADDENDUM ADDENDUM ADDENDUM ADDENDUM ADDENDUM ADDENDUM ADDENDUM 03/05/2018 14:48 ADDENDUM 03/05/2018 14:48 ADDENDUM 03/05/2018 14:48 ADDENDUM 03/05/2018 14:48 ADDENDUM 03/05/2018 14:48 (KEYTRUDA) PD-L1 IMMUNOHISTOCHEMICAL ANALYSIS FROM [employer] RESULTS: PD-L1 Immunohistochemical Analysis: Test cancelled due to <100 viable tumor cells. Please see complete report in e-chart or EMR for complete details
--- NOTE | 2017-09-27 | IMM_PTH ---
PATIENT: WALI ERICKSON LOC: [facility] – [place] U#:[id number] AGE/SX: 57/F ROOM: RE09/27/[address]: Dr. Ricky Vargas DO : 1960 BED: DIS: 09/27/2017 SPEC #: [id number] RECD: 10/01/17 10:31 STATUS: ARCENIO REQ #: [id number] MATIAS: 09/27/17 00:[address]: Ricky Vargas DEPT: IMMUNOHISTOCHEMISTRY RECD BY: Yohana Kapadia ENTERED: 10/01/17 10:34 SP TYPE: IMMUNO OTHR DR: Dr. Andrés Helms MD Tissues: G - Lung, NOS Procedures: Synapto (add) NAPSIN A (add) CD45 (add) CD56 (add) CEA (add) CHROMO (add) CK20 (add) CK7 (add) CK8 (add) KI-67 (add) P53 (add) TTF1 (add) Pankeratin (initial) NSE (add) S-100 (add) PHYSICIAN & [address] [address] SPECIMEN INFORMATION: Tissue Source: Marcia LugoR Clinical Info: Mediastinal and hilar adenopathy Specimen Number: [id number] CPT code: 73122, 76059 x14 METHODOLOGY: Deparaffinized sections of prefer/formalin-fixed tissue or PAP/DQ stained slides are incubated with monoclonal/polyclonal antibodies/oligonucleotide probes. Localization is made via biotin free immunoperoxidase method. Appropriate controls are performed and reacted as expected. Results on target cell population are indicated in the following table: RESULTS: ANTIBODY / CLONE RESULT Block G AE1-3 (AE1/AE3/PCK26) positive CK7 (OV-TL12/30) negative CK8 (57ppwyU55) positive, dim CK20 (KS20.8) negative CD45 (RP2/18) negative S-100 (4C4.9) negative CD56 (123C3.D5) positive Chromo (LK2H10) negative Synapto (polyclonal) positive NSE Neuron Specific Enolase positive TTF-1 (8G7G3/1) positive Napsin A (Rabbit Polyclonal) negative Ki-67 (30-9) positive, moderate CEA (11-7/TF-3HB-1) negative P53 (DO-7) positive, 12%, dim These tests were developed and their performance characteristics determined by [facility]. They may not have been cleared or approved by the U.S. Food and Drug Administration. The FDA has determined that such clearance or approval is not necessary. 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 AM:edward 10/01/17
--- NOTE | 2017-09-27 13:59 | OP.PCM_ITS ---
Operative Report Date of Procedure: 09/27/17 BRONCHOSCOPY (EBUS) PROCEDURE REPORT DATE OF SERVICE: September 27, 2017 BRIEF HISTORY: The patient is a 57-year-old female, with an extensive smoking history, who initially presented to my outpatient pulmonary medicine clinic for evaluation of abnormal chest imaging. The patient was noted to have bilateral pulmonary nodules, subcentimeter in size, with associated mediastinal and hilar lymphadenopathy. She subsequently underwent a PET scan which showed positivity in the right hilar and subcarinal lymph node stations. Following a discussion with the patient and her , she elected to undergo an EBUS to allow for mediastinal lymph node sampling. PROCEDURE: Bronchoscopy with endoscopic endobronchial ultrasound (EBUS), transbronchial needle aspiration INDICATION: Mediastinal and hilar lymphadenopathy PHYSICIAN: Ricky Vargas DO ANESTHETIC: This procedure was completed under the supervision of anesthesia. Please refer to their documentation accordingly. COMPLICATIONS: No immediate complications noted. DESCRIPTION OF PROCEDURE: A history and physical has been performed. Please see outpatient pulmonary clinic note. The patient's medications and allergies have been reviewed. The risks and benefits of the procedure and sedation options and risks were discussed with the patient at length. All questions were answered and informed consent was obtained. The patient's identification and proposed procedure were verified prior to the procedure by the physician. ASA GRADE ASSESSMENT: II After obtaining informed consent, the bronchoscope was introduced through the mouth, via laryngeal mask airway and advanced to the tracheal bronchial tree bilaterally. The procedure was accomplished without difficulty. The patient tolerated the procedure well. FINDINGS: The visualized oropharynx appears normal. The vocal cords appeared normal and moved normally with breathing. The subglottic space is normal. The trachea was of normal caliber. The joy is sharp. The tracheal bronchial trees of the left and right lungs were examined to at least the first subsegmental level. Bronchial mucosa and anatomy was noted to be normal. No endobronchial lesions were noted. Once the airway inspection was completed, the standard bronchoscope was withdrawn and a convex probe endobronchial ultrasound (EBUS) bronchoscope was inserted through the same route. The endobronchial ultrasound endoscope was then utilized to systematically examine the superior/inferior mediastinal and hilar lymph nodes to assist with fine-needle aspiration. In total, 9 transbronchial needle aspirations were completed at 2 different lymph node stations. Transbronchial needle aspiration was performed at lymph node station 7 using an Olympus EBUS-TBNA 21-gauge needle and sent for routine cytology. The procedure was guided by ultrasound. 5 samples were obtained. Transbronchial needle aspiration was then performed at lymph node station 10R using an Olympus EBUS-TBNA 21-gauge needle and sent for routine cytology. The procedure was guided by ultrasound. 4 samples were obtained. Rapid on-site evaluation (ADI): Preliminary cytology was suggestive of malignancy. Final pathology results are pending. Following this, the EBUS endoscope was subsequently withdrawn from the patient' s airway through the LMA. A conventional bronchoscope was then reinserted into the patient's airway, at which time, any retained secretions and/or blood was cleared. The bronchoscope was then withdrawn without complication. The patient was then transferred to the PACU, where they recovered in the usual fashion. IMPRESSION: 1. Extensive subcarinal and right hilar lymphadenopathy. 2. Transbronchial needle aspiration was performed at lymph node stations 7( subcarina) and 10R(right hilar) and sent for cytology. 3. Preliminary pathology was suggestive of malignancy. RECOMMENDATIONS: 1. Await final pathology results. 2. The patient and her were advised of the preliminary findings. They will be contacted once pathology results have finalized for a follow-up office visit. Code Visit [id number]: Other Procedure See Report
== END 2017-09-27 15:25 | disposition home or self-care (01) ==
LOC: SDC 11:17 → AC 11:18
PROVIDERS: Family Provider Internal Medicine; PCP Internal Medicine; Visit Provider Internal Medicine Critical Care Medicine
PROC: BB4BZZZ Ultrasonography of Pleura (ICD-10-PCS; principal; 2017-09-27 12:00)
DX: C34.01 Malignant neoplasm of right main bronchus (principal); F17.201 Nicotine dependence, unspecified, in remission; E87.1 Hypo-osmolality and hyponatremia; G40.909 Epilepsy, unspecified, not intractable, without status epilepticus; G45.4 Transient global amnesia; Z80.1 Family history of malignant neoplasm of trachea, bronchus and lung; Z80.8 Family history of malignant neoplasm of other organs or systems; Z80.3 Family history of malignant neoplasm of breast
CPT/HCPCS: 31652; 88161; 88305; 88313; 88341; 88342; J7120; J2405

== ENCOUNTER → 2017-10-07 09:07 | Outpatient (CLI) | payer OTHER, SELFPAY ==
--- NOTE | 2017-10-07 09:13 | NM_ITS ---
CLINICAL: 57-year-old female with reported history of bilateral upper extremity pain. WHOLE BODY 99m Tc MDP RADIONUCLIDE BONE SCINTIGRAPHY COMPARISON: None available FINDINGS: Following the intravenous administration of 26.0 mCi of 99m Tc MDP, whole body bone images reveal: 1. Increased radiopharmaceutical concentration is identified in the patellofemoral compartment of the left knee, ninth thoracic vertebra posteriorly on the left and in the midline, the acromioclavicular compartments of both shoulders, lower cervical spine posteriorly on the left, fifth lumbar vertebra posteriorly on the right, posterior midline sacrum, the first metatarsal-phalangeal articulation of the right forefoot. 2. The remaining skeletal structures are scintigraphically unremarkable with normal-appearing renal images and urinary bladder activity identified. NM/Bone Scan Whole Body IMPRESSION: 1. The increased radiopharmaceutical concentration identified in the cervical, thoracic and lumbar spine, sacrum, left knee, the right forefoot, shoulders bilaterally is most consistent with degenerative arthritis. 2. There is no definitive scintigraphic evidence of trauma-fracture, large articulation synovial inflammation on the current examination. Electronically Signed: Nate Evans DO at 10:11 EST Tel , Service support ,
== END ==
PROVIDERS: Family Provider Internal Medicine; PCP Internal Medicine; Visit Provider Internal Medicine Medical Oncology
DX: C34.31 Malignant neoplasm of lower lobe, right bronchus or lung (principal)
CPT/HCPCS: 78306

== ENCOUNTER 2017-10-10 06:14 | Day surgery (SDC) | payer OTHER, SELFPAY ==
[2017-10-10 06:42] VITALS: BP 121/95; PULSE 65; RESP 16; TEMP 36.5; O2SAT 100; BMI 23.3
[2017-10-10] MEDS: Cefazolin 2 GM in 0.9% Normal Saline 100 ML IV (07:56)
[2017-10-10] MEDS: Bupiv/Epi 0.5% Mpf 30 ML Vial (07:56)
--- NOTE | 2017-10-10 08:22 | RAD_ITS ---
STUDY: X-RAY CHEST REASON FOR EXAM: Female, 57 years old. Port placement. TECHNIQUE: Single AP portable view of the chest. COMPARISON: Comparison is made with prior examination dated August 16, 2017. FINDINGS: A right-sided eden catheter as been placed. The tip is at the junction of the superior vena cava and right atrium. Bilateral breast implants are seen. Stable rim-like capsular calcifications are seen in the right breast implant. The lungs are clear and expanded. Scattered calcified granulomas. There is no demonstrated pleural abnormality. Normal size heart. Normal mediastinum and jens. Normal visualized pulmonary arteries. Normal visualized aortic arch and descending thoracic aorta. Normal visualized thoracic spine. Normal visualized ribs, clavicles, and shoulders. There is no demonstrated abnormality of the visualized soft tissue structures of the upper abdomen. RAD/CXR for Line Placement IMPRESSION: The tip of the right portacatheter is at the junction of the superior vena cava and right atrium. Electronically Signed: Ilya Elliott MD at 10:06 EST Tel [phone], Service support ,
--- NOTE | 2017-10-10 08:24 | DCINST_ITS ---
Discharge Diet: No Restrictions - Pain medication may cause nausea. You should typically eat light foods as you take your pain medication. Discharge Activity: Return to Normal Activity, May Shower - with your bandage in place in 1-2 days after surgery. DO NOT SHOWER WHEN YOUR PORT IS ACCESSED. Call your doctor if your incision/area has: Continuous Slow Oozing, Sudden Increased Bleeding, Increased Pain/ Swelling, Increased Redness Call your doctor if you observe: Fever of 101 or Higher Remove Dressing in (days):: 3 - When you remove the bandage, leave the steri- strips intact until they fall off. Allergies/Adverse Reactions: Allergies No Known Allergies Allergy (Verified 10/09/17 09:57) Medications to take at Discharge Donepezil HCl 10 mg PO QHS 09/12/17 Levetiracetam 750 mg PO BID 09/12/17 Sodium Chloride 1 gm PO TID #90 tab 09/13/17 Lidocaine/Prilocaine [Lidocaine-Prilocaine Cream] 30 gm TP DAILY PRN PRN #1 cream..g. 10/07/17 Ondansetron HCl [Zofran] 8 mg PO Q8H PRN PRN #30 tab 10/07/17 Primary Care Physician: Andrés Helms MD [Primary Care Provider] - Please Follow Up With: Narinder Vizcarra MD When: call tomorrow to make 10 day appt for suture removal [phone]
--- NOTE | 2017-10-10 08:24 | PCM.OPRPT ---
Problem List (1) Encounter for adjustment or management of vascular access device Status: Acute Report of Operation Date of Procedure: 10/10/17 Pre-Operative Diagnosis: Small cell lung cancer and need for catheter for chemotherapy Post-Operative Diagnosis: Same Surgery/Procedure Performed:: Right chest port utilizing right IJ with ultrasound and fluoroscopy guidance Description of Procedure: After obtaining informed consent patient was brought back to the operating room MAC anesthesia was induced and the right chest and neck were prepped in normal sterile fashion. Ultrasound was used to evaluate both IJ is in the right IJ was selected. Next, using a needle, the right IJ was accessed and a guidewire was passed on into the superior vena cava under fluoroscopy guidance. A small incision was made over the puncture site and the dilator introducer was placed over the guidewire. Next this was capped and the pocket was made for the port. 1% lidocaine with epinephrine was injected in the proposed port site. An incision was made with scalpel. Electrocautery was used to make a pocket under the skin and subcutaneous tissue. Hemostasis was obtained. Next, the catheter was tunneled up to the neck incision site and placed through the introducer. The peel-away introducer was removed and the position of the catheter was confirmed on fluoroscopy. Next, the catheter was trimmed and attached to the port with the locking device. Interrupted 2-0 PDS were used to anchor the port to the chest wall and then the port was placed inside the pocket. The pocket was then flushed with saline and the port irrigated with saline. There was good blood return and the port flushed easily. Next, heparin was injected into the port. The skin was closed with subcutaneous interrupted 3-0 Vicryl sutures and interrupted skin 3-0 nylon sutures. A single 3-0 Vicryl sutures placed under the skin at the neck incision site. Steri-Strips were placed as well as op sites. Patient tolerated procedure well, was taken to PACU in stable condition. Chest x-ray will be obtained.
[2017-10-10 08:29] VITALS: BP 105/92; BP 121/95; PULSE 78; RESP 16; TEMP 36.4; O2SAT 100
[2017-10-10 08:35] VITALS: BP 114/68; BP 121/95; PULSE 73; RESP 16; O2SAT 100
[2017-10-10 08:40] VITALS: BP 117/68; BP 121/95; PULSE 69; RESP 18; O2SAT 99
[2017-10-10 08:45] VITALS: BP 120/64; BP 121/95; PULSE 57; RESP 16; TEMP 36.4; O2SAT 100
[2017-10-10 10:24] VITALS: BP 121/95
== END 2017-10-10 10:27 | disposition home or self-care (01) ==
LOC: SDC 06:16 → AC 06:17
PROVIDERS: Family Provider Internal Medicine; PCP Internal Medicine; Visit Provider Surgery
PROC: (CPT 36571; principal; 2017-10-10 07:30)
DX: C34.91 Malignant neoplasm of unspecified part of right bronchus or lung (principal); Z45.2 Encounter for adjustment and management of vascular access device; G40.909 Epilepsy, unspecified, not intractable, without status epilepticus; Z79.899 Other long term (current) drug therapy; Z87.891 Personal history of nicotine dependence
CPT/HCPCS: 36571; 71045; 77001; J7120; C1788

== ENCOUNTER 2017-10-17 15:25 | Emergency (ER) | payer OTHER, SELFPAY ==
[2017-10-17 15:25] VITALS: BP 94/58; PULSE 79; RESP 20; TEMP 36.4; O2SAT 100; BMI 23.8
--- NOTE | 2017-10-17 15:57 | CT_ITS ---
STUDY: CT BRAIN WITHOUT CONTRAST REASON FOR EXAM: Female, 57 years old. Syncope. Hit head. Abrasion on the left forehead. RADIATION DOSAGE (If Supplied By Facility): CTDIvol = ( 44.99 ) mGy, DLP = ( 812.98 ) mGycm TECHNIQUE: Transaxial CT imaging of the brain was performed without administration of intravenous contrast material. Individualized dose optimization techniques were used for this CT. COMPARISON: CTA of the head, August 16, 2017. MRI of the brain, August 17, 2017. FINDINGS: Normal soft tissue structures. Normal calvarium. Normal size ventricles and extra-axial spaces for the patient's age. Normal white matter tracts of the cerebral hemispheres. Normal basal ganglia and thalami. Normal brainstem. Normal cerebellum. There is no intracranial hemorrhage. There are no findings of an acute ischemic infarction. Normal visualized paranasal sinuses. CT/Brain/Head without Contrast IMPRESSION: Normal unenhanced CT scan of the brain. Electronically Signed: Eyad Long DO at 17:18 EST Tel [phone], Service support ,
--- NOTE | 2017-10-17 15:59 | EKG12_ITS ---
Test Reason : SYNCOPE Blood Pressure : / mmHG Vent. Rate : 074 BPM Atrial Rate : 074 BPM P-R Int : 158 ms QRS Dur : 080 ms QT Int : 380 ms P-R-T Axes : 082 068 077 degrees QTc Int : 421 ms Normal sinus rhythm Right atrial enlargement Borderline ECG Confirmed by NAREN GONZALEZ, OMID ([id number]), medical transcription editor MARSHA CARROLL ([id number]) on 10/22/2017 2:06:54 PM Referred By: ISABELL Confirmed By:OMID SNEED MD
--- NOTE | 2017-10-17 16:00 | RAD_ITS ---
STUDY: X-RAY CHEST REASON FOR EXAM: Female, 57 years old. Syncope. Recent chemotherapy. Diarrhea. TECHNIQUE: Single AP portable view of the chest. COMPARISON: October 10, 2017 FINDINGS: Stable right jugular Port-A-Cath Lungs are mildly hyperexpanded. There is coarsened interstitial markings without new infiltrate or mass. There is no demonstrated pleural abnormality. Normal size heart. Normal mediastinum and jens. Normal visualized pulmonary arteries. Normal visualized aortic arch and descending thoracic aorta. No visualized osseous changes. Again seen are bilateral breast implants. There is no demonstrated abnormality of the visualized soft tissue structures of the upper abdomen. RAD/Chest 1 View (Portable) IMPRESSION: No acute cardiopulmonary disease or interval change. Electronically Signed: Eyad Long DO at 16:21 EST Tel [phone], Service support ,
--- NOTE | 2017-10-17 16:04 | ED.DCSUM_ITS ---
- ER Visit Summary Date of Service: 10/17/17 Chief Complaint: Syncope History of Present Illness: The patient is a 57 F who received her first chemotherapy treatment with Dr. Moses on Saturday. She is being treated for stage IV lung cancer with SIADH. Patient states that she was constipated from Saturday until Saturday evening. Saturday evening she had a hard formed stool. Since this morning she has been having diarrhea. states that she is pretty much been in the bathroom since this morning. This afternoon she was having diarrhea when she sustained a syncopal episode. She fell off the toilet striking her forehead. She notes an abrasion to the forehead. She states she feels very anxious and weak. She has not had any nausea or vomiting. Physical Examination: Blood pressure 94/58 (patient states that she is typically 120 systolic) heart rate is 79 respirations are 20 pulse ox is 100% temperature 97.6 Gen: Well-nourished well-developed Head: Normocephalic small contusion/abrasion to the left forehead Eyes: Perrl EOMI ENT: TMs clear no rhinorrhea moist mucous membranes Neck: Supple no lymphadenopathy no JVD nontender CVS: Regular rate rhythm no murmurs normal S1-S2 Respiratory: No distress clear to auscultation bilaterally right anterior chest shows recent plan treatment of a port with stitches still in place. No evidence of infection. Abdomen: Soft nontender nondistended normal bowel sounds no masses Back: Nontender Extremity: Nontender no edema Skin: Patient appears pale Neuro: alert orientated ?3 CN II-XII intact normal strength sensation reflexes gait cerebellar Psych: Normal affect normal mood Test Results: CBC within normal range chemistry showed a BUN of 31 and creatinine 0.8. Lactic acid troponin essentially negative. Chest x-ray brain CT negative. Emergency Department Course and Treatment: She received 2 L of IV fluids. She has been up walking around. She states she feels significantly better. She will be given a dose of Imodium. She has not had any diarrhea here in the department. I spoke with Dr. Moses who is comfortable with her plan of discharge continued oral hydration and Imodium. Should her symptoms continue past tomorrow she is to call the office. Return if worsening. Impression: 1. Vasovagal syncope 2. Dehydration 3. Stage IV lung cancer 5. Syndrome of inappropriate antidiuretic hormone. 6. Diarrhea This note was generated with [employer] dictation software. It may contain incorrect words, spelling, and punctuation that were not noted in review of the chart prior to signing ED Disposition - Plan for ED Patient: Disposition: Home or Assisted Living Chief Complaint: Syncope Instructions: ED Syncope Vasovagal, ED Dehydration Referrals: Andrés Helms MD [Primary Care Provider] - Denny Moses MD [NON-STAFF] - (call office in 24 hours if diarrhea continues dispite imodium) Additional Instructions: Imodium as needed for diarrhea Return if worsening or concerns.
[2017-10-17 16:26] LABS: Absolute Lymphocyte Count 1.15 X10^3/ul (0.83-4.51); Absolute Neutrophil Count 7.2 X10^3/uL (2.0-7.7); Basophil# 0.01 X10^3/uL; Basophil% 0.1 % (0-1); Eosinophil# 0.03 X10^3/uL; Eosinophils% 0.4 % (0-5); Hematocrit 35.6 % (37-47); Hemoglobin 12.1 g/dl (12.0-15.0); Lymphocyte # 1.15 X10^3/ul (4.0); Lymphocyte % 13.4 % (19-41); Mean Platelet Vol. 8.8 fl (6.2-12.0); Monocyte# 0.22 X10^3/uL; Monocyte% 2.6 % (0-10); Neutrophil # 7.15 X10^3/uL (2.7-7.7); Neutrophil % 83.4 % (47-70); Platelet Count 235 K/mm3 (150-450); RBC Distribution Width CV 12.5 % (11.6-14.6); RBC Distribution Width SD 42.7 fl (35.1-43.9); Red Blood Count 3.67 M/mm3 (4.2-5.4); White Blood Count 8.6 K/mm3 (4.4-11.0)
[2017-10-17 16:29] LABS: POSITIVE COUNT NO; POSITIVE DIFFERENTIAL NO; POSITIVE MORPHOLOGY NO
[2017-10-17] MEDS: 0.9% Normal Saline 1,000 ML 1000 ML IV ×2 (16:33→18:03)
[2017-10-17 16:39] LABS: Bacteria 0 SEEN /hpf (None Seen); Mucous, Urine 0 SEEN /hpf (<or=2+); White Blood Cells 0 SEEN /hpf (0-5)
[2017-10-17 16:44] LABS: AST(SGOT) 21 U/L (15-37); Alanine Aminotransfer ALT/SGPT 67 U/L (13-56); Albumin, Serum 3.1 g/dL (3.2-5.0); Alkaline Phosphatase 71 U/L (45-117); Anion Gap 7 (5-15); BUN 31 mg/dL (7-18); BUN/Creat Ratio 35.1 RATIO (10-20); Calcium,Total 8.3 mg/dL (8.5-10.1); Chloride 97 mmol/L (98-107); Creatinine, Serum 0.88 mg/dL (0.55-1.02); EST Glomerular Filtration Rate 70 mL/min (>60); Est Glom Filt Rate - Afr Amer 84 mL/min (>60); Estimated Creatinine Clearance 64.44 ml/min; Globulin 3.2 g/dL (2.2-4.2); Glucose 95 mg/dL (74-106); Lipase 265 U/L (73-393); Potassium 4.3 mmol/L (3.5-5.1); Protein, Total 6.3 g/dL (6.4-8.2); Sodium Level 132 mmol/L (136-145)
[2017-10-17 16:49] LABS: Color, Urine Yellow (Yellow); Glucose, Dipstick Normal (Normal); Ketone-Dipstick Negative (Negative); Leukocyte Esterase-Dipstick Negative /ul (Negative); Nitrite-Dipstick Negative (Negative); Occult Blood-Urine 150 /ul (Negative); Protein-Dipstick Negative (Negative); Urine Bilirubin Dipstick Negative (Negative); Urine Clarity Clear (Clear); Urine Urobilinogen Normal (Normal)
[2017-10-17 16:50] LABS: Partial Thromboplast Time 23.8 Seconds (24.1-36.2); Prothrombin Time (Protime)PT. 13.1 SECONDS (11.7-14.9)
[2017-10-17 16:51] LABS: Lactic Acid 1.7 mmol/L (0.4-2.0)
[2017-10-17 17:49] LABS: Red Blood Cells-Urine 5-10 SEEN /hpf (0-5); Squamous Epithelial Cells - UA 0-5 SEEN /hpf (5-10)
[2017-10-17] MEDS: Loperamide 2 MG Capsule 4 MG PO (18:05)
[2017-10-17 18:06] VITALS: BP 127/69; PULSE 70; RESP 16
[2017-10-17 19:09] VITALS: BP 145/74; PULSE 71; RESP 16; O2SAT 97
--- NOTE | 2017-10-17 19:10 | ED.RN ---
FLUSHED PORT WITH HEP FLUSH PER PROTOCOL. REMOVED PORT. INTACT. NO BLEEDING.
== END 2017-10-17 19:12 | disposition home or self-care (01) ==
PROVIDERS: Emergency Provider Emergency Medicine; Family Provider Internal Medicine; PCP Internal Medicine
DX: R55 Syncope and collapse (principal); E86.0 Dehydration; C78.00 Secondary malignant neoplasm of unspecified lung; E22.2 Syndrome of inappropriate secretion of antidiuretic hormone; R19.7 Diarrhea, unspecified; S00.83XA Contusion of other part of head, initial encounter; S00.81XA Abrasion of other part of head, initial encounter; W18.11XA Fall from or off toilet without subsequent striking against object, initial encounter; Y93.89 Activity, other specified; Y92.002 Bathroom of unspecified non-institutional (private) residence as the place of occurrence of the external cause
CPT/HCPCS: 36591; 70450; 71045; 80053; 81001; 83605; 83690; 84484; 85025; 85610; 85730; 93005; 96360; 96361; 99284; J7030; A4216

== ENCOUNTER → 2017-12-03 07:18 | Outpatient (CLI) | payer OTHER, SELFPAY ==
--- NOTE | 2017-12-03 07:22 | CT_ITS ---
STUDY: CT CHEST WITH CONTRAST REASON FOR EXAM: Female, 57 years old. Small cell lung cancer RADIATION DOSAGE (If Supplied By Facility): CTDIvol = ( 9.49 ) mGy, DLP = ( 349.48 ) mGycm TECHNIQUE: Transaxial imaging was performed following intravenous administration of 100 ml of Isovue 300 contrast material. Individualized dose optimization techniques were used for this CT. COMPARISON: 08/29/2017 FINDINGS: Right chest wall port. Breast implants. Pulmonary emphysema. Scattered calcified pulmonary granulomata. Stable 4 mm right lower lobe nodule, seen on image 88 of series 4. Stable 4 mm nodule in the left upper lobe on image 38. There is no demonstrated pleural abnormality. Pulmonary emboli are present in right lower lobe artery branches on image 79 of series 2. Pulmonary emboli are present in left lower lobe artery branches on image 65. Normal heart and pericardium. Normal mediastinum. Calcified right hilar lymph nodes. Normal enhanced pulmonary arteries. Normal aorta arch and descending thoracic aorta. Stable T7 compression deformity. There is no demonstrated abnormality of the visualized upper abdomen. CT/Chest WITH Contrast IMPRESSION: Bilateral pulmonary emboli. Stable bilateral pulmonary nodules. Stable T7 compression deformity. N.B. : The above information has been verbally conveyed by Romario Gastelum MD to Bonnie Sommers NP, Other, on 12/04/2017 05:03:18 (ET). Electronically Signed: Romario Gastelum MD at 4:06 EDT Tel , Service support , N.B. : The above information has been verbally conveyed by Romario Gastelum MD to Bonnie Sommers NP, Other, on 12/04/2017 05:03:18 (ET).
--- NOTE | 2017-12-03 11:00 | CASEMGMT ---
Team meeting held with patient and . This Hotel Guest Service Agent, Pippa Tapia (ne[employer] glass [employer]), Asmita Horta Oncology BUSINESS OBJECTS, and Alecia Calderon (Patient Navigator) all present. Patient and voicing concerns regarding multiple issues including the wait time to see Dr. Moses for the last 2 patient follow up visits, the doctor not explaining things to the patient and feeling rushed while in with the doctor. Patient's also voiced that he feels that there is inconsistency in the information that he and the patient are receiving from different team members (ie. nutritional recommendations,chemo precautions in regards to patient and intimacy, etc.) Patient's verbalized she has a short life expectancy and her time should not be spend waiting 23 minutes to see the doctor. Team members presented options to patient and to address patient/ concerns. PLAN: 1) Patient will be assigned to Dr. Huggins for future follow up care. 2) The staff will make every effort possible to make patient's appointment the first appointment of the day in an attempt to alleviant wait time. 3) Patient and were encouraged to bring list of questions to each follow up appointment to ensure that questions are answered. 4) Alecia Calderon, Patient Navigator, will be present with patient and during follow up appointments to encourage asking of questions and to ensure patient/ understanding. 5) Encourage patient and to review chemo education booklet and to ask any questions that may come out of reading the booklet. Patient and appeared to be agreeable to plan. Patient and encouraged to ask questions and voice concerns as they arise. Much emotional support and active listening provided. Validated patient/'s frustrations related to treatment and change in life style related to diagnosis. SW will continue to be available to assist as needed with supportive counseling and active listening. GEGE Kwan
== END ==
PROVIDERS: Family Provider Internal Medicine; PCP Internal Medicine; Visit Provider Internal Medicine Medical Oncology
DX: C34.90 Malignant neoplasm of unspecified part of unspecified bronchus or lung (principal); I26.99 Other pulmonary embolism without acute cor pulmonale; R91.8 Other nonspecific abnormal finding of lung field; Z79.899 Other long term (current) drug therapy
CPT/HCPCS: 71260; Q9967

== ENCOUNTER 2017-12-04 06:20 | Inpatient (IN) | payer OTHER, SELFPAY ==
[2017-12-04] VITALS (12 sets, daily range): BP systolic 103–137; BP diastolic 58–85; PULSE 87–120; RESP 16–20; TEMP 37.4–37.7; O2SAT 96–99; BMI 25.5; BMI 24.4
--- NOTE | 2017-12-04 06:38 | EKG12_ITS ---
Test Reason : SOB Blood Pressure : / mmHG Vent. Rate : 091 BPM Atrial Rate : 091 BPM P-R Int : 172 ms QRS Dur : 080 ms QT Int : 344 ms P-R-T Axes : 078 059 068 degrees QTc Int : 423 ms Normal sinus rhythm Septal ME, age undetermined, cannot be excluded Confirmed by RAMAKRISHNA GONZALEZ, EDWAR ([id number]), rewrite editor MARSHA CARROLL ([id number]) on 12/09/2017 3:20:06 PM Referred By: Denny Moses Confirmed By:EDWAR DURBIN MD
[2017-12-04 06:55] LABS: Absolute Lymphocyte Count 1.45 X10^3/ul (0.83-4.51); Absolute Neutrophil Count 2.7 X10^3/uL (2.0-7.7); Basophil# 0.02 X10^3/uL; Basophil% 0.4 % (0-1); Eosinophil# 0.07 X10^3/uL; Eosinophils% 1.3 % (0-5); Hemoglobin 9.7 g/dl (12.0-15.0); Lymphocyte # 1.45 X10^3/ul (4.0); Mean Corp Hgb Conc 33.4 g/gl (32-36); Mean Corpuscular Hgb 32.8 pg (27.0-32.0); Mean Platelet Vol. 8.2 fl (6.2-12.0); Monocyte# 1.15 X10^3/uL; Monocyte% 21.4 % (0-10); Neutrophil # 2.65 X10^3/uL (2.7-7.7); Neutrophil % 49.3 % (47-70); Platelet Count 243 K/mm3 (150-450); RBC Distribution Width CV 14.8 % (11.6-14.6); RBC Distribution Width SD 49.3 fl (35.1-43.9); Red Blood Count 2.96 M/mm3 (4.2-5.4); White Blood Count 5.4 K/mm3 (4.4-11.0)
[2017-12-04 06:57] LABS: POSITIVE COUNT NO; POSITIVE DIFFERENTIAL NO; POSITIVE MORPHOLOGY NO
[2017-12-04 07:05] LABS: Prothrombin Time (Protime)PT. 13.6 SECONDS (11.7-14.9)
[2017-12-04 07:11] LABS: Anion Gap 10 (5-15); BUN 8 mg/dL (7-18); BUN/Creat Ratio 9.4 RATIO (10-20); Calcium,Total 8.1 mg/dL (8.5-10.1); Chloride 105 mmol/L (98-107); Creatinine, Serum 0.85 mg/dL (0.55-1.02); EST Glomerular Filtration Rate 73 mL/min (>60); Est Glom Filt Rate - Afr Amer 88 mL/min (>60); Estimated Creatinine Clearance 66.71 ml/min; Glucose 82 mg/dL (74-106); Potassium 4.1 mmol/L (3.5-5.1); Sodium Level 139 mmol/L (136-145)
--- NOTE | 2017-12-04 07:16 | NURSING ---
DR EDGAR HURD
--- NOTE | 2017-12-04 07:21 | NURSING ---
PCU BILATEREAL PULMONARY EMBOLI ASHELFAH
[2017-12-04] MEDS: Enoxaparin 80 MG/0.8 ML Syringe 72 MG SC (07:42)
--- NOTE | 2017-12-04 08:24 | ED.VISSUMM ---
- ER Visit Summary Date of Service: 12/04/17 Chief Complaint: Bilateral PEs History of Present Illness: The patient is a 57 F currently receiving chemotherapy treatment for small cell lung carcinoma who presents for bilateral PEs. Patient received scheduled imaging yesterday, and radiology called the cancer center to report this morning that bilateral pulmonary emboli were noted on the CT from yesterday. Denies any shortness of breath, fever, chest pain but does endorse a cough. She has no other complaints. Physical Examination: Vital signs: afebrile, hemodynamically stable, no hypoxia on room air General: well nourished, well developed, in no distress Skin: warm, dry, no rash, no pallor HEENT: normocephalic and atraumatic; PERRL, EOMI, moist mucous membranes Cardiovascular: regular rate and rhythm without murmurs, no peripheral edema, 2+ pulses all distal extremities Respiratory: No increased work of breathing, lungs are clear to auscultation bilaterally, no rales, rhonchi or wheezing Abdominal: Abdomen is soft, nontender with normoactive bowel sounds, no guarding or rebound, no masses MSK: Moves all extremities, no deformities, normal strength Neuro: Awake and alert, oriented ?4. No facial droop, sensation and motor function intact and symmetric Test Results: Abnormal Lab Results 12/04/17 12/04/17 12/04/17 06:35 06:35 06:35 WBC 5.4 RBC 2.96 L Hgb 9.7 L Hct 29.0 L MCV 98.0 MCH 32.8 H MCHC 33.4 RDW 14.8 H RDW Differential 49.3 H Plt Count 243 MPV 8.2 Immature Gran % (Auto) 0.600 Neut % (Auto) 49.3 Lymph % (Auto) 27.0 [place] % (Auto) 21.4 H Eos % (Auto) 1.3 Baso % (Auto) 0.4 Absolute Neuts (auto) 2.7 Absolute Lymphs (auto) 1.45 Total Counted Not Reportable PT 13.6 INR 1.0 APTT 25.0 Sodium 139 Potassium 4.1 Chloride 105 Carbon Dioxide 24.0 Anion Gap 10 BUN 8 Creatinine 0.85 Estim Creat Clear Calc 66.71 Est GFR (MDRD) Af Amer 88 Est GFR (MDRD) Non-Af 73 BUN/Creatinine Ratio 9.4 L Glucose 82 Calcium 8.1 L Troponin I < 0.02 Emergency Department Course and Treatment: Patient is in no distress, is afebrile, no tachypnea or tachycardia, and no hypoxia. Her PESI score puts her at moderate mortality risk at 30 days, making inpatient management appropriate. Patient was started on Lovenox subcu. She was discussed with the hospitalist for admission and further workup/management. Treatment Plan: [] Disposition: [] Impression: Bilateral pulmonary emboli, small cell lung carcinoma This note was generated with [employer] dictation software. It may contain incorrect words, spelling, and punctuation that were not noted in review of the chart prior to signing ED Disposition - Plan for ED Patient: Chief Complaint: Shortness of Breath
--- NOTE | 2017-12-04 09:04 | PCM.HP.STD ---
Problem List (1) Small cell lung cancer in adult Status: Chronic (2) Seizure disorder Status: Chronic (3) Tobacco dependence in remission Status: Chronic (4) Hyponatremia Status: Chronic History of Present Illness Date of Admission: 12/04/17 Chief Complaint: Bilateral PEs. The patient is a 57 year old F with past medical history as mentioned above was referred to the emergency room by the cancer center of the radiology department called this morning to report that patient has bilateral pulmonary emboli on CT scan chest that was done yesterday. The patient is asymptomatic and she denies any symptoms. She denied chest pain, shortness of breath, vision, dizziness or lightheadedness. CT scan chest that was done yesterday was a follow-up on her lung cancer. She denies abdominal pain, nausea vomiting. She denied bleeding from any orifices. She had a history of small cell lung cancer and currently chemotherapy, last chemotherapy was last week and she has been following up with Dr. Marcelo. She has a history of seizure disorder and she has been on Keppra and according to her , this was attributed to hyponatremia and she has been without seizure since August,. 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 In the emergency department, her vital signs were stable. Respiratory status was stable, pulse ox is 98% on room air. Her routine blood work was remarkable for chronic anemia with stable, otherwise normal. EKG revealed normal sinus rhythm without evidence of acute ischemic changes. Her troponin is negative. Pro time and INR were normal. She is being admitted for bilateral pulmonary embolism. Past Medical History Past Medical History (Chronic Problems): Chronic Problems (Last Updated 12/04/17 @ 08:52 by Pan Boggs MD) Adjustment disorder (Chronic) Small cell lung cancer in adult (Chronic) Seizure disorder (Chronic) Tobacco dependence in remission (Chronic) Hyponatremia (Chronic) Allergies No Known Allergies Allergy (Verified 11/25/17 09:46) Home Medications: Ambulatory Orders Medication Instructions Recorded Lidocaine/Prilocaine 30 gm TP DAILY PRN PRN #1 cream..g. 10/07/17 [Lidocaine-Prilocaine Cream] Ondansetron HCl [Zofran] 8 mg PO Q8H PRN PRN #30 tab 10/07/17 Sodium Chloride 1 gm PO TID #90 tab 10/11/17 levetiracetam 750 mg tablet 750 mg PO Q12H #90 tab 10/22/17 Mirtazapine [Remeron] 15 mg PO QHS 30 Days #30 tab 11/11/17 Surgical History: - - Bilateral carpal tunnel surgery, bilateral hammertoe surgery, lung biopsy Psychiatric History: No pertinent psych hx [employer] History: No pertinent [employer] history Lives: Spouse/ Significant Other Smoking Status: Former smoker Alcohol: None Drugs: None - *Family History Maternal History Items: - - no CVA Paternal History Items: No pertinent history Review of Systems Constitutional: Reports: Weakness. Denies: Anorexia, Chills, Fever Eyes: Denies: Blurred vision, Double vision, Drainage, Redness HEENT: Denies: Difficulty Hearing, Ear Pain, Eye Pain, Nasal Congestion, Sore Throat Cardiovascular: Denies: Chest Pain, Chest Pressure, Chest Tightness, Edema, Heaviness, Light Headedness, Palpitations, Syncope Respiratory: Denies: Cough, Pleuritic Pain, Shortness of Breath, Sputum production, Wheezing Gastrointestinal: Denies: Abdominal Pain, Constipation, Diarrhea, Nausea, Vomiting Genitourinary: Denies: Dysuria, Frequency, Hematuria Musculoskeletal: Denies: Arm Pain, Back Pain, Foot Pain Skin: Denies: Dryness, Rash Neurological: Denies: Balance problems, Double vision, Change in Speech, Slurred speech, Confusion, Focal weakness, Headaches, Incoordination, Numbness Psychiatric: Denies: Anxiety, Depression Endocrine: Denies: Change in Body Habitus, Polydipsia VTE Information - Inpt Only VTE Present on Admission: No VTE Mechan Device Prophylaxis: None VTE Pharm Prophylaxis ordered?: No - Physical Exam General: Alert, Oriented x3, Cooperative, No apparent distress HEENT: Atraumatic, PERRLA, EOMI Oral: Moist Mucosa, No Gingival or Mucosal Lesions/ Ulcerations Neck: Supple, No JVD, Negative Carotid Bruits, Trachea Midline, Thyroid Normal Size and Texture Lungs: Clear to auscultation, Normal air movement, No rhonchi, No wheeze, No rales Cardiovascular: Regular rate, Regular Rhythm, Normal S1, Normal S2, No murmurs Abdomen: Bowel Sounds Present, Soft, Non Tender, Non-Distended, No Hepato-splenomegaly Extremities: No clubbing, No cyanosis, No edema Skin: No rashes, No breakdown Lymphatic: No Cervical, Supraclavicular, or Inguinal Adenopathy Neurological: Cranial nerves II-XII grossly intact, Motor Exam 5/5 strength throughout Psych/Mental Status: Normal Affect, Appropriate, Alert and oriented to time, place, person, mood and affect Vital Signs Temp Pulse Resp BP Pulse Ox 99.4 F H 100 16 137/69 H 98 12/04/17 08:55 12/04/17 08:55 12/04/17 08:55 12/04/17 08:55 12/04/17 08:55 Oxygen Delivery Method Room Air Weight: 151 lb 7.321 oz Body Mass Index (BMI) 24.4 Laboratory Tests 12/04/17 12/04/17 12/04/17 Range/Units 06:35 06:35 06:35 WBC 5.4 (4.4-11.0) K/mm3 RBC 2.96 L (4.2-5.4) M/mm3 Hgb 9.7 L (12.0-15.0) g/dl Hct 29.0 L (37-47) % MCV 98.0 (81-99) fL MCH 32.8 H (27.0-32.0) pg MCHC 33.4 (32-36) g/gl RDW 14.8 H (11.6-14.6) % RDW Differential 49.3 H (35.1-43.9) fl Plt Count 243 (150-450) K/mm3 MPV 8.2 (6.2-12.0) fl Immature Gran % (Auto) 0.600 (0.0-0.9) % Neut % (Auto) 49.3 (47-70) % Lymph % (Auto) 27.0 (19-41) % [place]ud[place]eth % (Auto) 21.4 H (0-10) % Eos % (Auto) 1.3 (0-5) % Baso % (Auto) 0.4 (0-1) % Absolute Neuts (auto) 2.7 (2.0-7.7) X10^3/uL Absolute Lymphs (auto) 1.45 (0.83-4.51) X10^3/ul Total Counted Not Reportable PT 13.6 (11.7-14.9) SECONDS INR 1.0 APTT 25.0 (24.1-36.2) Seconds Sodium 139 (136-145) mmol/L Potassium 4.1 (3.5-5.1) mmol/L Chloride 105 (98-107) mmol/L Carbon Dioxide 24.0 (21.0-32.0) mmol/L Anion Gap 10 (5-15) BUN 8 (7-18) mg/dL Creatinine 0.85 (0.55-1.02) mg/dL Estim Creat Clear Calc 66.71 ml/min Est GFR (MDRD) Af Amer 88 (>60) mL/min Est GFR (MDRD) Non-Af 73 (>60) mL/min BUN/Creatinine Ratio 9.4 L (10-20) RATIO Glucose 82 (74-106) mg/dL Calcium 8.1 L (8.5-10.1) mg/dL Troponin I < 0.02 (<0.06) ng/mL Assessment/Plan This is a 57 years old female patient was referred from the cancer center to the ER because she was found to have multiple bilateral pulmonary emboli on CT scan chest that was done yesterday for follow-up regarding a small cell lung cancer. #1 acute multiple bilateral lower lobes pulmonary emboli: This was discovered on CTA chest that was done yesterday December 03, 2017 for follow-up for small cell lung cancer and she was found to have pulmonary emboli on both right lower lobe artery branches as well as left lower lobe artery branches. This is considered provoked secondary to lung cancer. At this time, patient's vital signs are stable, respiratory status are stable. EKG revealed normal sinus rhythm, no acute ischemic changes. Troponin is negative. Plan: Admit to PCU, cardiac monitoring, start therapeutic Lovenox twice daily, O2 via nasal cannula to keep O2 saturation more than 92%, Tylenol as needed, PT OT evaluation and treatment. #2 small cell lung cancer: Currently on chemotherapy, last session was last week. She has been following up with Dr. Moses. #3 seizure disorder: Continue Keppra. According to her , she has been stable without seizures since August,. #4 chronic hyponatremia: Probably due to SIADH secondary to cancer. She has been on oral sodium supplements. Serum sodium is normal. Plan to continue oral sodium supplementation. #5 DVT prophylaxis: She will be on Lovenox twice daily for acute PE. This note was generated with [employer] dictation software. It may contain incorrect words, spelling, and punctuation that were not noted in checking the note before signing. Code Visit Inpatient E&M: 78374 Init Hosp L3
[2017-12-04] MEDS: levETIRAcetam 750 MG Tablet PO ×2 (10:04→21:48)
[2017-12-04] MEDS: SODIUM CHLORIDE 1 GM TABLET PO ×2 (14:38→21:48)
[2017-12-04] MEDS: Enoxaparin 80 MG/0.8 ML Syringe 70 MG SC (16:38)
[2017-12-04] MEDS: Mirtazapine 15 MG Tablet PO (21:48)
[2017-12-05 02:21] VITALS: BP 90/47; PULSE 79; RESP 18; TEMP 36.8; O2SAT 97
[2017-12-05 03:05] VITALS: PULSE 78
[2017-12-05 04:41] VITALS: BP 93/50; PULSE 88; RESP 20; TEMP 37.1; O2SAT 95
[2017-12-05] MEDS: Enoxaparin 80 MG/0.8 ML Syringe 70 MG SC (05:50)
[2017-12-05] MEDS: SODIUM CHLORIDE 1 GM TABLET PO (05:51)
[2017-12-05] MEDS: 0.9% NaCl VAD Flush 10 ML IV (06:09)
[2017-12-05 06:52] LABS: Absolute Lymphocyte Count 1.49 X10^3/ul (0.83-4.51); Absolute Neutrophil Count 3.5 X10^3/uL (2.0-7.7); Basophil# 0.03 X10^3/uL; Basophil% 0.5 % (0-1); Eosinophil# 0.03 X10^3/uL; Eosinophils% 0.5 % (0-5); Hematocrit 27.6 % (37-47); Hemoglobin 9.3 g/dl (12.0-15.0); Lymphocyte # 1.49 X10^3/ul (4.0); Lymphocyte % 23.2 % (19-41); Mean Corp Hgb Conc 33.7 g/gl (32-36); Mean Corpuscular Hgb 33.2 pg (27.0-32.0); Mean Corpuscular Volume 98.6 fL (81-99); Monocyte# 1.39 X10^3/uL; Monocyte% 21.7 % (0-10); Neutrophil # 3.46 X10^3/uL (2.7-7.7); Neutrophil % 53.9 % (47-70); Platelet Count 257 K/mm3 (150-450); RBC Distribution Width CV 14.9 % (11.6-14.6); RBC Distribution Width SD 50.4 fl (35.1-43.9); White Blood Count 6.4 K/mm3 (4.4-11.0)
[2017-12-05 06:53] VITALS: PULSE 80
[2017-12-05 06:54] LABS: POSITIVE COUNT NO; POSITIVE DIFFERENTIAL NO; POSITIVE MORPHOLOGY NO
[2017-12-05 07:35] VITALS: O2SAT 96
--- NOTE | 2017-12-05 08:10 | PCM.DC ---
You will use the following diet at home:: Regular Your food should be the consistency of: Regular Discharge Activity: Return to Normal Activity Weight Bearing Status: Weight bearing as tolerated Call your doctor if you observe: Fever of 101 or Higher, Shortness of breath, Dizziness, Fainting spells, Chest pain, Increased palpitations (irregular heartbeat), Uncontrolled pain Instructions: Discharge Instructions for Pulmonary Embolism Allergies/Adverse Reactions: Allergies No Known Allergies Allergy (Verified 11/25/17 09:46) Medications to take at Discharge Lidocaine/Prilocaine [Lidocaine-Prilocaine Cream] 30 gm TP DAILY PRN PRN #1 cream..g. 10/07/17 Ondansetron HCl [Zofran] 8 mg PO Q8H PRN PRN #30 tab 10/07/17 Sodium Chloride 1 gm PO TID #90 tab 10/11/17 levetiracetam 750 mg tablet 750 mg PO Q12H #90 tab 10/22/17 Mirtazapine [Remeron] 15 mg PO QHS 30 Days #30 tab 11/11/17 Enoxaparin Sodium [Lovenox] 100 mg SQ DAILY #90 syringe 12/05/17 The following prescriptions were given: Enoxaparin Sodium [Lovenox] 100 mg SQ DAILY #90 syringe Primary Care Physician: Andrés Helms MD [Primary Care Provider] - Please follow up with your Primary Care Physician in: 1 week. Please Follow Up With: Gage Huggins MD When: as scheduled.
[2017-12-05 08:33] VITALS: BP 112/67; PULSE 97; RESP 18; TEMP 37.8; O2SAT 98
--- NOTE | 2017-12-05 09:05 | CASEMGMT ---
PRINCE MONK received call from PCU charge nurse Ana regarding script for Lovenox. PRINCE MONK called [facility] where script was sent to priced check Lovenox. There is no copay for Lovenox script. PRINCE MONK updated PCU charge nurse Ana regarding no copay.
--- NOTE | 2017-12-05 10:02 | NURSING ---
Attempted to see patient for collection team [employer] security assessment. Pt discharged and has left the facility.
--- NOTE | 2017-12-05 11:56 | NURSING ---
all patient care, medication administration and documentation by Brayan Lin, student nurse, done under the supervision of this RN.
--- NOTE | 2017-12-05 12:57 | PCM.DC.SUM ---
Discharge Date and Diagnosis Date of Admission: 12/04/17 Date of Discharge: 12/05/17 - Primary Discharge Diagnosis Acute multiple bilateral lower lobes pulmonary emboli. - Secondary Discharge Diagnosis Chronic Problems (Last Updated 12/04/17 @ 08:52 by Pan Boggs MD) Adjustment disorder (Chronic) Small cell lung cancer in adult (Chronic) Seizure disorder (Chronic) Tobacco dependence in remission (Chronic) Hyponatremia (Chronic) Hospital Course and Treatment Operations: None Procedures: None Summary of Care Provided: Patient seen and examined on the day of discharge and appeared to be stable to be discharged home. She remained asymptomatic, no complaints. Vital signs are stable, maintained her pulse ox on room air. - Physical Exam General: Alert, Oriented x3, Cooperative, No apparent distress. HEENT: Atraumatic, PERRLA, EOMI. Neck: Supple, No JVD, Negative Carotid Bruits, Trachea Midline, Thyroid Normal. Lungs: Clear to auscultation, Normal air movement, No rhonchi, No wheeze, No rales. Cardiovascular: Regular rate, Regular Rhythm, Normal S1, Normal S2, PMI Normal. Abdomen: Bowel Sounds Present, Soft, Non Tender, Non-Distended, No Hepato-splenomegaly. Extremities: No clubbing, No cyanosis, No edema Skin: No rashes, No breakdown Neurological: Neuro grossly intact Vital Signs are stable. Hospital course: The patient is a 57 year old F was referred from the cancer center because she was found to have multiple bilateral PEs on CTA chest that was done for follow-up regarding his small cell lung cancer. CTA chest revealed multiple bilateral pulmonary emboli on both right lower lobe artery branches and left lower lobe artery branches. This is considered provoked secondary to lung cancer. Her EKG revealed normal sinus rhythm without evidence of acute ischemic changes or right heart strain. Her troponin was negative. Her routine blood work was unremarkable except for chronic anemia with stable hemoglobin. She has a history of small cell lung cancer currently chemotherapy and her last session of chemotherapy was last week. She was treated with Lovenox 1 mg/kg twice daily. After discussion with , her oncologist, over the phone without official consultation, we agreed to start patient on 1.5 mg/kg of Lovenox daily. Patient discharged home in a stable medical condition, discharged on Lovenox 100 mg subcu daily, continued on her chronic home medication without any changes, plan to follow-up with PCP in 1 week and follow-up with oncology as scheduled. Discharge Activity: Return to Normal Activity Weight Bearing Status: Weight bearing as tolerated Call your doctor if you observe: Fever of 101 or Higher, Shortness of breath, Dizziness, Fainting spells, Chest pain, Increased palpitations (irregular heartbeat), Uncontrolled pain Home Medications: Medications to take at Discharge Lidocaine/Prilocaine [Lidocaine-Prilocaine Cream] 30 gm TP DAILY PRN PRN #1 cream..g. 10/07/17 Ondansetron HCl [Zofran] 8 mg PO Q8H PRN PRN #30 tab 10/07/17 Sodium Chloride 1 gm PO TID #90 tab 10/11/17 levetiracetam 750 mg tablet 750 mg PO Q12H #90 tab 10/22/17 Mirtazapine [Remeron] 15 mg PO QHS 30 Days #30 tab 11/11/17 Enoxaparin Sodium [Lovenox] 100 mg SQ DAILY #90 syringe 12/05/17 Following Prescrptions Were Given to Patient: Enoxaparin Sodium [Lovenox] 100 mg SQ DAILY #90 syringe Primary Care Physician: Andrés Helms MD [Primary Care Provider] - Please follow up with your Primary Care Physician in: 1 week. Please Follow Up With: Gage Huggins MD When: as scheduled. Patient Instructions: Discharge Instructions for Pulmonary Embolism Disposition: Home Minutes spent on discharge:: 26 Patient Condition:: Stable Medical Necessity - Tobacco Use Smoking Status: Former smoker Meaningful Use Info Meaningful Use Diagnoses (Choose all that apply): None applicable Code Visit Inpatient E&M: 14399 Disch Hosp
--- NOTE | 2017-12-05 13:02 | DS.PCM_ITS ---
Discharge Date and Diagnosis Date of Admission: 12/04/17 Date of Discharge: 12/05/17 - Primary Discharge Diagnosis Acute multiple bilateral lower lobes pulmonary emboli. - Secondary Discharge Diagnosis Chronic Problems (Last Updated 12/04/17 @ 08:52 by Pan Boggs MD) Adjustment disorder (Chronic) Small cell lung cancer in adult (Chronic) Seizure disorder (Chronic) Tobacco dependence in remission (Chronic) Hyponatremia (Chronic) Hospital Course and Treatment Operations: None Procedures: None Summary of Care Provided: Patient seen and examined on the day of discharge and appeared to be stable to be discharged home. She remained asymptomatic, no complaints. Vital signs are stable, maintained her pulse ox on room air. - Physical Exam General: Alert, Oriented x3, Cooperative, No apparent distress. HEENT: Atraumatic, PERRLA, EOMI. Neck: Supple, No JVD, Negative Carotid Bruits, Trachea Midline, Thyroid Normal. Lungs: Clear to auscultation, Normal air movement, No rhonchi, No wheeze, No rales. Cardiovascular: Regular rate, Regular Rhythm, Normal S1, Normal S2, PMI Normal. Abdomen: Bowel Sounds Present, Soft, Non Tender, Non-Distended, No Hepato- splenomegaly. Extremities: No clubbing, No cyanosis, No edema Skin: No rashes, No breakdown Neurological: Neuro grossly intact Vital Signs are stable. Hospital course: The patient is a 57 year old F was referred from the cancer center because she was found to have multiple bilateral PEs on CTA chest that was done for follow- up regarding his small cell lung cancer. CTA chest revealed multiple bilateral pulmonary emboli on both right lower lobe artery branches and left lower lobe artery branches. This is considered provoked secondary to lung cancer. Her EKG revealed normal sinus rhythm without evidence of acute ischemic changes or right heart strain. Her troponin was negative. Her routine blood work was unremarkable except for chronic anemia with stable hemoglobin. She has a history of small cell lung cancer currently chemotherapy and her last session of chemotherapy was last week. She was treated with Lovenox 1 mg/kg twice daily. After discussion with , her oncologist, over the phone without official consultation, we agreed to start patient on 1.5 mg/kg of Lovenox daily. Patient discharged home in a stable medical condition, discharged on Lovenox 100 mg subcu daily, continued on her chronic home medication without any changes, plan to follow-up with PCP in 1 week and follow- up with oncology as scheduled. Discharge Activity: Return to Normal Activity Weight Bearing Status: Weight bearing as tolerated Call your doctor if you observe: Fever of 101 or Higher, Shortness of breath, Dizziness, Fainting spells, Chest pain, Increased palpitations (irregular heartbeat), Uncontrolled pain Home Medications: Medications to take at Discharge Lidocaine/Prilocaine [Lidocaine-Prilocaine Cream] 30 gm TP DAILY PRN PRN #1 cream..g. 10/07/17 Ondansetron HCl [Zofran] 8 mg PO Q8H PRN PRN #30 tab 10/07/17 Sodium Chloride 1 gm PO TID #90 tab 10/11/17 levetiracetam 750 mg tablet 750 mg PO Q12H #90 tab 10/22/17 Mirtazapine [Remeron] 15 mg PO QHS 30 Days #30 tab 11/11/17 Enoxaparin Sodium [Lovenox] 100 mg SQ DAILY #90 syringe 12/05/17 Following Prescrptions Were Given to Patient: Enoxaparin Sodium [Lovenox] 100 mg SQ DAILY #90 syringe Primary Care Physician: Andrés Helms MD [Primary Care Provider] - Please follow up with your Primary Care Physician in: 1 week. Please Follow Up With: Gage Huggins MD When: as scheduled. Patient Instructions: Discharge Instructions for Pulmonary Embolism Disposition: Home Minutes spent on discharge:: 26 Patient Condition:: Stable Medical Necessity - Tobacco Use Smoking Status: Former smoker Meaningful Use Info Meaningful Use Diagnoses (Choose all that apply): None applicable Code Visit Inpatient E&M: 67024 Disch Hosp
--- NOTE | 2017-12-06 16:30 | CASEMGMT ---
RN CM DISCHARGE F/U PHONE CALL LACE: 12 STRATA: 4 CALL DATE: 12/06/17 DISCHARGE DATE: 12/05/17 TIME OF CALL: 1627 DURATION: 4MINUTES ADM DX: BILAT PE PT'S ANSWERED AND PREFERRED TO ANSWER QUESTIONS FOR PT AT THIS TIME. STATES THAT PT HAS BEEN DOING 'PRETTY GOOD' SINCE DISCHARGE. HE STATES THAT THEY PICKED UP THE LOVENOX SCRIPT AND PT GAVE HERSELF THE SHOT TODAY. DOES STATE THAT THEY RECEIVED A CALL FROM ONE OF THE PCU NURSES ADVISING PT TO COME BACK IN TO HAVE HEPARIN FLUSHED INTO PORT THEY DID NOT DO THIS PRIOR TO DISCHARGE. STATES THEY WERE TOLD THEY COULD COME IN ON SATURDAY FOR THAT AND HE ASKED THIS RN CM IF THAT WAS OK AND THIS RN CM ADVISED HIM THAT THE SOONER THE BETTER SO THAT THE PORT DID NOT CLOT, VOICES UNDERSTANDING AND STATES THEY WILL BE IN ON SATURDAY WHEN THEY HAVE F/U APPT SCHEDULED. STATES NO CONCERNS/SUGGESTIONS FOR [facility] AT THIS TIME. PROVIDED WITH THIS RN CM CONTACT INFO AT THIS TIME FOR ANY FURTHER QUESTIONS/CONCERNS. SSTATEN RN LACHO
== END 2017-12-05 08:49 | disposition home or self-care (01) | DRG 176 ==
LOC: ED 07:07 → PCU 07:38
PROVIDERS: Admitting Provider Hospitalist; Emergency Provider Emergency Medicine; Family Provider Internal Medicine; PCP Internal Medicine; Visit Provider Hospitalist
DX: I26.99 Other pulmonary embolism without acute cor pulmonale (principal); C34.92 Malignant neoplasm of unspecified part of left bronchus or lung; C34.91 Malignant neoplasm of unspecified part of right bronchus or lung; E87.1 Hypo-osmolality and hyponatremia; F43.20 Adjustment disorder, unspecified; G40.909 Epilepsy, unspecified, not intractable, without status epilepticus; Z79.899 Other long term (current) drug therapy; Z87.891 Personal history of nicotine dependence
CPT/HCPCS: 36591; 80048; 84484; 85025; 85610; 85730; 93005; 97802; 99282; A4216

== ENCOUNTER → 2018-01-14 13:10 | Outpatient (CLI) | payer OTHER, SELFPAY ==
--- NOTE | 2018-01-14 13:16 | CT_ITS ---
STUDY: CT ABDOMEN WITH CONTRAST REASON FOR EXAM: Female, 57 years old. Lung cancer RADIATION DOSAGE (If Supplied By Facility): CTDIvol = ( 7.20 ) mGy, DLP = ( 206.59 ) mGycm TECHNIQUE: Transaxial images were obtained post I.V. administration of 100 ml of Isovue 250 contrast, and without oral contrast. Sagittal and coronal images were reconstructed. Individualized dose optimization techniques were used for this CT. COMPARISON: None. FINDINGS: Normal liver. Normal gallbladder and extrahepatic biliary system. There are multiple benign calcified granulomata of the spleen. Normal pancreas. Normal bilateral adrenal glands. Normal right kidney. Normal left kidney. Normal visualized stomach. Normal small intestine. Normal colon. The appendix is visualized and appears normal. Normal abdominal aorta. Normal inferior vena cava. Normal retroperitoneum. Normal abdominal wall. Normal osseous structures. CT/Abdomen WITH IV Contrast IMPRESSION: No evidence of metastatic disease in the abdomen. Electronically Signed: Emiliano Coppola, at 22:30 EDT Tel , Service support ,
--- NOTE | 2018-01-14 13:16 | CT_ITS ---
STUDY: CT CHEST WITH CONTRAST REASON FOR EXAM: Female, 57 years old. Lung cancer RADIATION DOSAGE (If Supplied By Facility): CTDIvol = ( 7.20 ) mGy, DLP = ( 223.14 ) mGycm TECHNIQUE: Transaxial imaging was performed following intravenous administration of 100 ml of Isovue 300 contrast material. Coronal and sagittal reformatted images were created. Individualized dose optimization techniques were used for this CT. COMPARISON: 12/03/2017 FINDINGS: There are stable mild emphysematous changes noted in the lungs. There are stable calcified granulomata noted in the lungs. There are stable subcentimeter noncalcified pulmonary nodules measuring up to 4 mm. There are no new nodules or masses. There are no pulmonary infiltrates or pleural effusions. There is no pneumothorax. There is a right-sided port with its tip in the superior vena cava. The heart and pericardium are within normal limits. There is no thoracic lymphadenopathy. There are calcified mediastinal and hilar lymph nodes, consistent with prior granulomatous disease. There is no evidence of thoracic aortic aneurysm. There are no destructive osseous lesions. CT/Chest WITH Contrast IMPRESSION: Stable mild emphysema. Stable small pulmonary nodules measuring up to 4 mm. No new nodules or masses. Stable evidence of prior granulomatous disease. Electronically Signed: Emiliano Coppola, at 17:02 EDT Tel , Service support ,
== END ==
PROVIDERS: Family Provider Internal Medicine; PCP Internal Medicine; Visit Provider Internal Medicine Hematology & Oncology
DX: C34.90 Malignant neoplasm of unspecified part of unspecified bronchus or lung (principal); C77.9 Secondary and unspecified malignant neoplasm of lymph node, unspecified; R91.8 Other nonspecific abnormal finding of lung field
CPT/HCPCS: 71260; 74160; Q9967; A4216

== ENCOUNTER → 2018-03-04 06:37 | Outpatient (CLI) | payer OTHER, SELFPAY ==
--- NOTE | 2018-03-04 06:41 | CT_ITS ---
STUDY: CT ABDOMEN WITH CONTRAST REASON FOR EXAM: Female, 57 years old. The patient as a history of lung cancer. RADIATION DOSAGE (If Supplied By Facility): CTDIvol = ( 13.49 ) mGy, DLP = ( 879.75 ) mGycm TECHNIQUE: Transaxial images were obtained post I.V. administration of 100 ml of Isovue 300 contrast, and without oral contrast. Sagittal and coronal images were reconstructed. Individualized dose optimization techniques were used for this CT. COMPARISON: Comparison is made with prior examination dated January 14, 2018. FINDINGS: Right breast prosthesis. There is calcification of the anterior rim of the prosthesis. This is unchanged. Minimal scarring at the lung bases. The visualized portions of the heart are within normal limits. Normal liver. Normal gallbladder and extrahepatic biliary system. There are multiple benign calcified granulomata of the spleen. Normal pancreas. Normal bilateral adrenal glands. Normal right kidney. Normal left kidney. Retroaortic left renal vein. Normal visualized stomach. Normal small intestine. Normal colon. The appendix is visualized and appears normal. There is scattered atherosclerotic calcification of the abdominal aorta, without a demonstrated aneurysm. Normal inferior vena cava. Normal retroperitoneum. Multiple small subcutaneous nodules are seen in the subcutaneous tissues in the lower anterior abdominal wall. There are mild degenerative changes of the visualized lumbar spine. Degenerative changes of the sacroiliac joints bilaterally. CT/Abdomen WITH IV Contrast IMPRESSION: Stable examination. There is no evidence of metastatic disease. Electronically Signed: Ilya Elliott MD at 9:04 EDT Tel [phone], Service support ,
--- NOTE | 2018-03-04 06:41 | CT_ITS ---
STUDY: CT CHEST WITHOUT CONTRAST REASON FOR EXAM: Female, 57 years old. History of lung cancer. RADIATION DOSAGE (If Supplied By Facility): CTDIvol = ( 13.49 ) mGy, DLP = ( 879.75 ) mGycm TECHNIQUE: Transaxial imaging was performed without the administration of intravenous contrast material. Multiplanar coronal and sagittal images were reformatted. Individualized dose optimization techniques were used for this CT. COMPARISON: Comparison is made with prior study dated January 14, 2018. FINDINGS: Stable appearance of the bilateral breast prostheses with calcification along the anterior aspects of both prostheses more prominent on the right side. A right-sided portacatheter is seen. Stable appearance of the emphysematous changes with small bullous changes worse in the upper lobes. Minimal scarring in the lung apices. There is no demonstrated pleural abnormality. Normal heart and pericardium. There are multiple small lymph nodes within the mediastinum, which are normal in size and morphology most compatible with reactive lymph hyperplasia. Normal hilar regions. Normal unenhanced pulmonary arteries. Normal aorta arch and descending thoracic aorta. There are multi-level degenerative changes of the thoracic spine. Loss of height of the mid and lower dorsal vertebrae. There is no demonstrated abnormality of the visualized upper abdomen. CT/Chest WITH Contrast IMPRESSION: Stable examination. Electronically Signed: Ilya Elliott MD at 9:07 EDT Tel [phone], Service support ,
== END ==
PROVIDERS: Family Provider Internal Medicine; PCP Internal Medicine; Visit Provider Internal Medicine Hematology & Oncology
DX: C34.90 Malignant neoplasm of unspecified part of unspecified bronchus or lung (principal); C77.9 Secondary and unspecified malignant neoplasm of lymph node, unspecified; D70.1 Agranulocytosis secondary to cancer chemotherapy
CPT/HCPCS: 71260; 74160; Q9967; A4216

== ENCOUNTER → 2018-04-03 06:25 | Outpatient (CLI) | payer OTHER, SELFPAY | PROVIDERS: Family Provider Internal Medicine; PCP Internal Medicine; Visit Provider Internal Medicine Hematology & Oncology | DX: C34.90 Malignant neoplasm of unspecified part of unspecified bronchus or lung (principal); R91.8 Other nonspecific abnormal finding of lung field | CPT/HCPCS: 70553; A9585; A4216 ==

== ENCOUNTER → 2018-05-19 07:41 | Outpatient (CLI) | payer OTHER, SELFPAY ==
[2018-04-14 08:57] VITALS: BMI 26.5
--- NOTE | 2018-05-19 07:48 | CT_ITS ---
STUDY: CT CHEST WITH CONTRAST REASON FOR EXAM: Female, 57 years old. Lung cancer. History of pulmonary embolus. RADIATION DOSAGE (If Supplied By Facility): CTDIvol = ( 10.17 ) mGy, DLP = ( 662.11 ) mGycm TECHNIQUE: Transaxial imaging was performed following intravenous administration of 100 ml of Isovue 300 contrast material. Coronal and sagittal reformatted images were created. Individualized dose optimization techniques were used for this CT. COMPARISON: 03/04/2018 FINDINGS: There are stable mild emphysematous changes noted in the lungs. There is a new 9 mm nodule in the right lower lobe (image 68 series 6). There are additional stable subcentimeter pulmonary nodules measuring up to 5 mm. There are no pulmonary infiltrates or pleural effusions. There is no pneumothorax. The heart and pericardium are within normal limits. There is no thoracic lymphadenopathy. There is no evidence of thoracic aortic aneurysm. There are no destructive osseous lesions. There is a right-sided port with its tip in the superior vena cava. CT/Chest WITH Contrast IMPRESSION: Stable mild emphysema. New 9 mm nodule in the right lower lobe. Short-term follow-up or further evaluation with PET/CT is recommended. Electronically Signed: Emiliano Coppola, at 17:00 EDT Tel , Service support ,
--- NOTE | 2018-05-19 07:48 | CT_ITS ---
STUDY: CT ABDOMEN WITH CONTRAST REASON FOR EXAM: Female, 57 years old. Lung cancer. RADIATION DOSAGE (If Supplied By Facility): CTDIvol = ( 10.17 ) mGy, DLP = ( 662.11 ) mGycm TECHNIQUE: Transaxial images were obtained post I.V. administration of 100 ml of Isovue 300 contrast, and without oral contrast. Sagittal and coronal images were reconstructed. Individualized dose optimization techniques were used for this CT. COMPARISON: 03/04/2018 FINDINGS: The liver is within normal limits. There are no focal hepatic lesions. There are calcified gallstones present. There are calcified granulomata noted in the spleen. The spleen is otherwise unremarkable. The pancreas, adrenal glands and kidneys are within normal limits. The visualized bowel demonstrates no evidence of obstruction. There is no abdominal free air, free fluid or lymphadenopathy. The aorta is normal in caliber. There are no destructive osseous lesions. CT/Abdomen WITH IV Contrast IMPRESSION: No evidence of metastatic disease in the abdomen. Electronically Signed: Emiliano Coppola, at 17:06 EDT Tel , Service support ,
== END ==
PROVIDERS: Family Provider Internal Medicine; PCP Internal Medicine; Referring Provider Internal Medicine Hematology & Oncology; Visit Provider Internal Medicine Hematology & Oncology
DX: C34.90 Malignant neoplasm of unspecified part of unspecified bronchus or lung (principal); I26.99 Other pulmonary embolism without acute cor pulmonale; J43.9 Emphysema, unspecified; R91.1 Solitary pulmonary nodule
CPT/HCPCS: 71260; 74160; Q9967; A4216

== ENCOUNTER 2018-07-20 17:10 | Emergency (ER) | payer OTHER, SELFPAY ==
[2018-04-14 08:57] VITALS: BMI 26.5
[2018-07-14 08:54] VITALS: BMI 28.6
[2018-07-20] VITALS (8 sets, daily range): BP systolic 102–258; BP diastolic 69–81; PULSE 87–110; RESP 12–20; TEMP 37.1–38.5; O2SAT 94–97; BMI 28.3
--- NOTE | 2018-07-20 17:56 | RAD_ITS ---
STUDY: X-RAY CHEST REASON FOR EXAM: Female, 57 years old. Fever and cough TECHNIQUE: PA and lateral views of the chest. COMPARISON: 10/17/2017 FINDINGS: EKG leads overlie the chest. Right IJ subclavian central venous catheter tip in the distal SVC. The lungs are clear and expanded. There is no demonstrated pleural abnormality. Normal size heart. Normal mediastinum and jens. Normal visualized pulmonary arteries. Normal visualized aortic arch and descending thoracic aorta. Normal visualized thoracic spine. Normal visualized ribs, clavicles, and shoulders. There is no demonstrated abnormality of the visualized soft tissue structures of the upper abdomen. RAD/Chest PA and Lateral IMPRESSION: No acute pulmonary process Electronically Signed: Freddy Izaguirre MD at 21:45 EST , Service support ,
--- NOTE | 2018-07-20 17:57 | EKG12_ITS ---
Test Reason : FEVER Blood Pressure : / mmHG Vent. Rate : 099 BPM Atrial Rate : 099 BPM P-R Int : 158 ms QRS Dur : 078 ms QT Int : 298 ms P-R-T Axes : 079 072 069 degrees QTc Int : 382 ms Normal sinus rhythm Nonspecific T wave abnormality Abnormal ECG Confirmed by RAMAKRISHNA GONZALEZ, EDWAR ([id number]), sports editor MARSHA CARROLL ([id number]) on 07/22/2018 3:21:33 PM Referred By: AMOL Confirmed By:EDWAR DURBIN MD
--- NOTE | 2018-07-20 18:01 | ED.DCSUM_ITS ---
- ER Visit Summary Date of Service: 07/20/18 Chief Complaint: Fever History of Present Illness: The patient is a 57 F fever 101 today. Chills and mild cough 2 days ago. 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 Followed by Dr. Khan. Patient initiated 2 rounds of chemo was in remission restarted 2 months ago. Her last treatment was 6 days ago. No new last however she states she did receive steroids Benadryl and Pepcid which was used as part of her treatment. Treated with Taxol. No urinary symptoms. No vomiting or diarrhea. Has not had fever with her chemo treatments. Called oncologist office, spoke with nurse practitioner who sent her to the ED. Remote tobacco history. Physical Examination: General: Alert and oriented ?3, no acute distress HEENT: Normocephalic, atraumatic. Moist mucosa membranes Neck: supple, nontender. Cardiovascular: Regular tachycardic rate and rhythm, no murmurs Respiratory: Normal breath sounds, symmetric, no distress Abdomen: Soft, nontender, nondistended Extremities: Nontender, no edema, pulses intact ?4 Neuro: no focal neurological deficits. Test Results: White count 2.5, absolute neutrophil 1.5. Creatinine 0.97. Influenza negative. Blood and urine culture pending. Lactic acid 0.8. Chest x-ray pending final read Emergency Department Course and Treatment: Patient febrile in the ED. Chemo patient. Neutropenic workup initiated. Influenza negative. Chest x-ray reviewed myself show no acute process however awaiting final read. Labs noted white count 2.5 absolute neutrophil 1.5. Patient remained stable was given Tylenol fever improved. Awaiting final read for chest x-ray for discussion with oncology for disposition and care. However on reevaluation at 2114, spouse became frustrated and wanted to leave. Discussed possibility of getting worse. He also states possibly get better. Patient alert and oriented x3. We will have signed out AGAINST MEDICAL ADVICE. Discussed return at any time for reevaluation. They will call their oncologist tomorrow. Treatment Plan: [] Disposition: Discharge Impression: 1. Fever of unknown origin 2. Chemotherapy This note was generated with [employer] software. It may contain incorrect words, spelling, and punctuation that were not noted in review of the chart prior to signing ED Disposition - Plan for ED Patient: Disposition: Against Medical Advice Chief Complaint: Fever Diagnosis: Fever Instructions: ED Fever Unconf Cause Referrals: Andrés Helms MD [Primary Care Provider] - Gage Huggins MD [STAFF PHYSICIAN] - As soon as possible Additional Instructions: You have a fever. White count 2.5, absolute neutrophils 1.5. Other labs are stable. I did not have all your results back including final read on her chest x-ray. Blood cultures and urine cultures are in the lab. Your choosing to leave AGAINST MEDICAL ADVICE. Call your oncologist tomorrow for follow-up. Return anytime for reevaluation.
[2018-07-20] MEDS: Acetaminophen 500 MG Tablet 1000 MG PO (18:37)
[2018-07-20] MEDS: 0.9% Normal Saline 1,000 ML 150 ML IV (18:37)
[2018-07-20 18:50] LABS: Absolute Lymphocyte Count 0.66 X10^3/ul (0.83-4.51); Absolute Neutrophil Count 1.5 X10^3/uL (2.0-7.7); Basophil# 0.03 X10^3/uL; Basophil% 1.2 % (0-1); Eosinophil# 0.08 X10^3/uL; Eosinophils% 3.2 % (0-5); Hematocrit 29.3 % (37-47); Lymphocyte # 0.66 X10^3/ul (4.0); Lymphocyte % 26.1 % (19-41); Mean Corp Hgb Conc 34.1 g/gl (32-36); Mean Corpuscular Hgb 33.1 pg (27.0-32.0); Monocyte# 0.23 X10^3/uL; Monocyte% 9.1 % (0-10); Neutrophil # 1.52 X10^3/uL (2.7-7.7); POSITIVE COUNT NO; POSITIVE DIFFERENTIAL NO; POSITIVE MORPHOLOGY NO; Platelet Count 266 K/mm3 (150-450); RBC Distribution Width CV 14.4 % (11.6-14.6); RBC Distribution Width SD 50.3 fl (35.1-43.9); Red Blood Count 3.02 M/mm3 (4.2-5.4); White Blood Count 2.5 K/mm3 (4.4-11.0)
[2018-07-20 18:51] LABS: Mucous, Urine 0 SEEN /hpf (<or=2+)
[2018-07-20 18:52] LABS: Color, Urine Yellow (Yellow); Glucose, Dipstick Normal (Normal); Ketone-Dipstick Negative (Negative); Leukocyte Esterase-Dipstick 25 /ul (Negative); Nitrite-Dipstick Negative (Negative); Occult Blood-Urine 150 /ul (Negative); Protein-Dipstick Negative (Negative); Urine Bilirubin Dipstick Negative (Negative); Urine Clarity Clear (Clear); Urine Urobilinogen Normal (Normal)
[2018-07-20 18:53] LABS: International Normalized Ratio 1.3; Partial Thromboplast Time 34.4 Seconds (24.1-36.2); Prothrombin Time (Protime)PT. 16.6 SECONDS (11.7-14.9)
[2018-07-20 18:58] LABS: Bacteria RARE /hpf (None Seen); Red Blood Cells-Urine 10-25 SEEN /hpf (0-5); Squamous Epithelial Cells - UA 0-5 SEEN /hpf (5-10); White Blood Cells 0-5 SEEN /hpf (0-5)
[2018-07-20 19:01] LABS: ALB/GLOB Ratio 0.9 RATIO (0.9-2.4); AST(SGOT) 18 U/L (15-37); Alanine Aminotransfer ALT/SGPT 14 U/L (13-56); Albumin, Serum 3.1 g/dL (3.2-5.0); Alkaline Phosphatase 69 U/L (45-117); Anion Gap 7 (5-15); BUN 15 mg/dL (7-18); BUN/Creat Ratio 15.5 RATIO (10-20); Chloride 100 mmol/L (98-107); Creatinine, Serum 0.97 mg/dL (0.55-1.02); EST Glomerular Filtration Rate 63 mL/min (>60); Est Glom Filt Rate - Afr Amer 76 mL/min (>60); Estimated Creatinine Clearance 56.19 ml/min; Globulin 3.5 g/dL (2.2-4.2); Glucose 87 mg/dL (74-106); Protein, Total 6.6 g/dL (6.4-8.2); Sodium Level 132 mmol/L (136-145)
[2018-07-20 19:07] LABS: Lactic Acid 0.8 mmol/L (0.4-2.0)
--- NOTE | 2018-07-20 20:12 | ED.RN ---
DR. MCINTYRE MADE AWARE OF PATIENT'S BP OF 102/69. THE PATIENT ALSO TOLD THIS NURSE THAT HER BP DOES RUN ON THE LOW SIDE NORMALLY.
--- NOTE | 2018-07-20 21:24 | ED.RN ---
PATIENT AND REQUEST TO LEAVE AMA. THEY ARE VERY FRUSTRATED ABOUT THE LENGTH OF TIME IT IS TAKING TO HAVE HER CHEST XRAY RESULTS COME BACK. CHEST XRAY WAS DONE AT 1756 AND IT IS NOW 2124. APPARENTLY XRAY RESULTS HAVE BEEN SLOW ALL DAY LONG. THIS NURSE TOLD THE PATIENT THAT XRAYS ARE READ REMOTELY AT THIS TIME OF EVENING AND UNFORTUNATELY IT IS OUT OF OUR CONTROL. I DEACTIVATED HER PORT WITH SALINE AND HEPARIN, HAD HER SIGN AMA PAPERS AND WENT OVER HER DISCHARGE PAPERS INCLUDING TELLING HER SIGNS AND SYMPTOMS TO RETURN TO THE ER IF CONDITION WORSENS. THE DOCTOR SAID THAT HE WOULD CALL THEM IF RESULTS SHOWED ANYTHING ABNORMAL.
--- OUTSIDE RECORDS SUMMARY | 2018-09-13 00:41 | XMS RPT_ITS ---
:1960 Author Organization OHIP Support Name Relationship Address Phone JACINTO HALL Unavailable [address] + [place] [address] R Unavailable Unavailable Unavailable HALL, JACINTO Unavailable [address] + [place] [address] R Unavailable Unavailable Unavailable HALL, JACINTO Unavailable [address] + [place] [address] R Unavailable Unavailable Unavailable HALL, JACINTO Unavailable [address] + [place] [address] R Unavailable Unavailable Unavailable HALL, JACINTO Unavailable [address] + [place] [address] R Unavailable Unavailable Unavailable HALL, JACINTO Unavailable [address] + [place] [address] R Unavailable Unavailable Unavailable HALL, JACINTO Unavailable [address] + [place] [address] R Unavailable Unavailable Unavailable HALL, JACINTO Unavailable [address] + [place] [address] R Unavailable Unavailable Unavailable HALL, JACINTO Unavailable [address] + [place] [address] R Unavailable Unavailable Unavailable HALL, JACINTO Unavailable [address] + [place] [address] R Unavailable Unavailable Unavailable HALL, JACINTO Unavailable [address] + [place] [address] R Unavailable Unavailable Unavailable HALL, JACINTO Unavailable [address] + [place] [address] R Unavailable Unavailable Unavailable HALL, JACINTO Unavailable [address] + [place] [address] R Unavailable Unavailable Unavailable HALL, JACINTO Unavailable [address] + [place] [address] R Unavailable Unavailable Unavailable HALL, JACINTO Unavailable [address] + [place] [address] R Unavailable Unavailable Unavailable HALL, JACINTO Unavailable [address] + [place] [address] R Unavailable Unavailable Unavailable HALL, JACINTO Unavailable [address] + [place] [address] R Unavailable Unavailable Unavailable HALL, JACINTO Unavailable [address] + [place] [address] R Unavailable Unavailable Unavailable HALL, JACINTO Unavailable [address] + [place] [address] R Unavailable Unavailable Unavailable HALL, JACINTO Unavailable [address] + [place] [address] R Unavailable Unavailable Unavailable HALL, JACINTO Unavailable [address] + [place] [address] R Unavailable Unavailable Unavailable HALL, JACINTO Unavailable [address] + [place] [address] R Unavailable Unavailable Unavailable HALL, JACINTO Unavailable [address] + [place] [address] R Unavailable Unavailable Unavailable HALL, JACINTO Unavailable [address] + [place] [address] R Unavailable Unavailable Unavailable HALL, JACINTO Unavailable [address] + [place] [address] R Unavailable Unavailable Unavailable HALL, JACINTO Unavailable [address] + [place] [address] R Unavailable Unavailable Unavailable HALL, JACINTO Unavailable [address] + [place] [address] R Unavailable Unavailable Unavailable HALL, JACINTO Unavailable [address] + [place] [address] R Unavailable Unavailable Unavailable HALL, JACINTO Unavailable [address] + [place] [address] R Unavailable Unavailable Unavailable HALL, JACINTO Unavailable [address] + [place] [address] R Unavailable Unavailable Unavailable HALL, JACINTO Unavailable [address] + [place] [address] R Unavailable Unavailable Unavailable HALL, JACINTO Unavailable [address] + [place] [address] R Unavailable Unavailable Unavailable HALL, JACINTO Unavailable [address] + [place] [address] R Unavailable Unavailable Unavailable HALL, JACINTO Unavailable [address] + [place] [address] R Unavailable Unavailable Unavailable HALL, JACINTO Unavailable [address] + [place] [address] R Unavailable Unavailable Unavailable HALL, JACINTO Unavailable [address] + [place] [address] R Unavailable Unavailable Unavailable HALL, JACINTO Unavailable [address] + [place] [address] R Unavailable Unavailable Unavailable HALL, JACINTO Unavailable [address] + [place] [address] R Unavailable Unavailable Unavailable HALL, JACINTO Unavailable [address] + [place] [address] R Unavailable Unavailable Unavailable HALL, JACINTO Unavailable [address] + [place] [address] R Unavailable Unavailable Unavailable HALL, JACINTO Unavailable [address] + [place] [address] R Unavailable Unavailable Unavailable HALL, JACINTO Unavailable [address] + [place] [address] R Unavailable Unavailable Unavailable HALL, JACINTO Unavailable [address] + [place] [address] R Unavailable Unavailable Unavailable HALL, JACINTO Unavailable [address] + [place] [address] R Unavailable Unavailable Unavailable HALL, JACINTO Unavailable [address] + [place] [address] R Unavailable Unavailable Unavailable HALL, JACINTO Unavailable [address] + [place] [address] R Unavailable Unavailable Unavailable HALL, JACINTO Unavailable [address] + [place] [address] R Unavailable Unavailable Unavailable HALL, JACINTO Unavailable [address] + [place] [address] R Unavailable Unavailable Unavailable HALL, JACINTO Unavailable [address] + [place] [address] R Unavailable Unavailable Unavailable HALL, JACINTO Unavailable [address] + [place] [address] R Unavailable Unavailable Unavailable HALL, JACINTO Unavailable [address] + [place] [address] R Unavailable Unavailable Unavailable HALL, JACINTO Unavailable [address] + [place] [address] R Unavailable Unavailable Unavailable HALL, JACINTO Unavailable [address] + [place] [address] R Unavailable Unavailable Unavailable HALL, JACINTO Unavailable [address] + [place] [address] R Unavailable Unavailable Unavailable HALL, JACINOT Unavailable [address] + [place] [address] R Unavailable Unavailable Unavailable HALL, JACINTO Unavailable [address] + [place] [address] R Unavailable Unavailable Unavailable HALL, JACINTO Unavailable [address] + [place] [address] R Unavailable Unavailable Unavailable HALL, JACINTO Unavailable [address] + [place] [address] R Unavailable Unavailable Unavailable HALL, JACINTO Unavailable [address] + [place] [address] R Unavailable Unavailable Unavailable HALL, JACINTO Unavailable [address] + [place] [address] R Unavailable Unavailable Unavailable HALL, JACINTO Unavailable [address] + [place] [address] HALL, JACINTO Unavailable [address] + [place] [address] R Unavailable Unavailable Unavailable HLAL, JACINTO Unavailable [address] + [place] [address] R Unavailable Unavailable Unavailable HALL, JACINTO Unavailable [address] + [place] [address] R Unavailable Unavailable Unavailable HALL, JACINTO Unavailable [address] + [place] [address] R Unavailable Unavailable Unavailable HALL, JACINTO Unavailable [address] + [place] [address] R Unavailable Unavailable Unavailable HALL, JACINTO Unavailable [address] + [place] [address] UE Unavailable Unavailable Unavailable HALL, JACINTO Unavailable [address] + [place] [address] UE Unavailable Unavailable Unavailable HALL, JACINTO Unavailable [address] + [place] [address] UE Unavailable Unavailable Unavailable HALL, JACINTO Unavailable [address] + [place] [address] UE Unavailable Unavailable Unavailable HALL, JACINTO Unavailable [address] + [place] [address] R Unavailable Unavailable Unavailable HALL, JACINTO Unavailable [address] + [place] [address] R Unavailable Unavailable Unavailable HALL, JACINTO Unavailable [address] + [place] [address] UE Unavailable Unavailable Unavailable Care Team Providers Name Role Phone REFERRING REFERRING, PHY PHY WO ID~[id number] Attending Unavailable REFERRING REFERRING, PHY PHY WO ID~[id number] Primary Care Unavailable Gage Huggins Attending Unavailable Madisyne, Efewongbe Referring Unavailable Oleghe, Efewongbe Primary Care Unavailable Gage Huggins Consulting Unavailable Primay Care Physicia, No Primary Care Unavailable Richie Bernardo Admitting Unavailable Richie Bernardo Attending Unavailable Javier Hussein Consulting Unavailable Richie Bernardo Attending Unavailable Richie Bernardo Attending Unavailable Primay Care Physicia, No Primary Care Unavailable Satidner Hall Attending Unavailable Oleghe, Efewongbe Attending Unavailable Primay Care Physicia, No Referring Unavailable Primay Care Physicia, No Primary Care Unavailable Oleghe, Efewongbe Attending Unavailable Oleghe, Efewongbe Primary Care Unavailable Oleghe, Efewongbe Attending Unavailable Oleghe, Efewongbe Primary Care Unavailable Oleghe, Efewongbe Primary Care Unavailable Cyrus Archer Attending Unavailable Glenn Leach DIETITIAN TEACHING-C Attending Unavailable Oleghe, Efewongbe Referring Unavailable Oleghe, Efewongbe Attending Unavailable Oleghe, Efewongbe Referring Unavailable Oleghe, Efewongbe Primary Care Unavailable Oleghe, Efewongbe Attending Unavailable Oleghe, Efewongbe Referring Unavailable Oleghe, Efewongbe Primary Care Unavailable Oleghe, Efewongbe Attending Unavailable Primay Care Physicia, No Referring Unavailable Oleghe, Efewongbe Primary Care Unavailable Ricky Vargas D.O. Attending Unavailable Oleghe, Efewongbe Referring Unavailable Oleghe, Efewongbe Attending Unavailable Oleghe, Efewongbe Primary Care Unavailable Oleghe, Efewongbe Referring Unavailable Oleghe, Efewongbe Primary Care Unavailable Marco Antonio Zamudio Consulting Unavailable [place], [place] Admitting Unavailable [place], [place] Attending Unavailable Deborah, Jayaprakash Consulting Unavailable [place], [place] Admitting Unavailable [place], [place] Attending Unavailable Oleghe, Efewongbe Referring Unavailable Oleghe, Efewongbe Primary Care Unavailable Marco Antonio Zamudio Consulting Unavailable Deborah, Jayaprakash Consulting Unavailable Paint[place], [place] Consulting Unavailable [place], [place] Admitting Unavailable Moraima Cross DIETITIAN TEACHING-C Attending Unavailable Oleghe, Efewongbe Referring Unavailable Oleghe, Efewongbe Primary Care Unavailable Marco Antonio Zamudio Consulting Unavailable Deborah, Jayaprakash Consulting Unavailable [place], [place] Consulting Unavailable Richie Bernardo Attending Unavailable [place], [place] Admitting Unavailable Robb Marco Antonio Attending Unavailable Oleghe, Efewongbe Referring Unavailable Oleghe, Efewongbe Primary Care Unavailable Marco Antonio Zamudio Consulting Unavailable Deborah, Jayaprakash Consulting Unavailable Paint[place], [place] Consulting Unavailable Paint[place], [place] Admitting Unavailable [place], [place] Attending Unavailable Oleghe, Efewongbe Referring Unavailable Oleghe, Efewongbe Primary Care Unavailable Marco Antonio Zamudio Consulting Unavailable Deborah, Jayaprakash Consulting Unavailable Paint[place], [place] Consulting Unavailable Deborah, Jayaprakash Attending Unavailable Oleghe, Efewongbe Primary Care Unavailable Deborah, Jayaprakash Referring Unavailable Ricky Vargas D.O. Consulting Unavailable Paint[place], [place] Consulting Unavailable Oleghe, Efewongbe Attending Unavailable Oleghe, Efewongbe Referring Unavailable Oleghe, Efewongbe Primary Care Unavailable Oleghe, Efewongbe Attending Unavailable Oleghe, Efewongbe Referring Unavailable Ricky Vargas D.O. Attending Unavailable Ricky Vargas D.O. Referring Unavailable Oleghe, Efewongbe Primary Care Unavailable Ricky Vargas D.O. Attending Unavailable Ricky Vargas D.O. Referring Unavailable Oleghe, Efewongbe Primary Care Unavailable Ricky Vargas D.O. Consulting Unavailable Oleghe, Efewongbe Primary Care Unavailable Oleghe, Efewongbe Referring Unavailable Gage Huggins Attending Unavailable Denny Moses Attending Unavailable Denny Moses Referring Unavailable Oleghe, Efewongbe Primary Care Unavailable Denny Moses Consulting Unavailable Denny Moses Attending Unavailable Denny Moses Referring Unavailable Oleghe, Efewongbe Primary Care Unavailable Asmita Sommers Attending Unavailable Denny Moses Referring Unavailable Oleghe, Efewongbe Primary Care Unavailable Denny Moses Consulting Unavailable Narinder Vizcarra Attending Unavailable Oleghe, Efewongbe Referring Unavailable Oleghe, Efewongbe Primary Care Unavailable Narinder Vizcarra Attending Unavailable Narinder Vizcarra Referring Unavailable Oleghe, Efewongbe Primary Care Unavailable Narinder Vizcarra Attending Unavailable Narinder Vizcarra Referring Unavailable Oleghe, Efewongbe Primary Care Unavailable Narinder Vizcarra Consulting Unavailable Denny Moses Attending Unavailable Oleghe, Efewongbe Referring Unavailable Oleghe, Efewongbe Primary Care Unavailable Denny Moses Consulting Unavailable Oleghe, Efewongbe Primary Care Unavailable Luis M Bella Attending Unavailable Oleghe, Efewongbe Attending Unavailable Oleghe, Efewongbe Referring Unavailable Oleghe, Efewongbe Primary Care Unavailable Narinder Vizcarra Attending Unavailable Oleghe, Efewongbe Referring Unavailable Oleghe, Efewongbe Primary Care Unavailable Tootie Asmita Attending Unavailable Oleghe, Efewongbe Referring Unavailable Oleghe, Efewongbe Primary Care Unavailable Denny Moses Consulting Unavailable Denny Moses Attending Unavailable Oleghe, Efewongbe Referring Unavailable Oleghe, Efewongbe Primary Care Unavailable Denny Moses Consulting Unavailable Luis M Martines Attending Unavailable Rudolph, Alfredo Referring Unavailable Luis M Martines Attending Unavailable Paint[place], [place] Referring Unavailable Tootie, Tyra Attending Unavailable Oleghe, Efewongbe Referring Unavailable Oleghe, Efewongbe Primary Care Unavailable Denny Moses Consulting Unavailable Denny Moses Attending Unavailable Oleghe, Efewongbe Referring Unavailable Oleghe, Efewongbe Primary Care Unavailable Denny Moses Consulting Unavailable Denny Moses Attending Unavailable Oleghe, Efewongbe Referring Unavailable Oleghe, Efewongbe Primary Care Unavailable Denny Moses Consulting Unavailable Denny Moses Attending Unavailable Denny Moses Referring Unavailable Oleghe, Efewongbe Primary Care Unavailable Oleghe, Efewongbe Primary Care Unavailable Ashelfah, Ghasem Admitting Unavailable Ashelfah, Ghasem Attending Unavailable Ashelfah, Ghasem Admitting Unavailable Ashelfah, Ghasem Attending Unavailable Oleghe, Efewongbe Primary Care Unavailable Ashelfah, Ghasem Consulting Unavailable Ashelfah, Ghasem Admitting Unavailable Ashelfah, Ghasem Attending Unavailable Oleghe, Efewongbe Primary Care Unavailable Ashelfah, Ghasem Consulting Unavailable Gage Huggins Attending Unavailable Oleghe, Efewongbe Referring Unavailable Oleghe, Efewongbe Primary Care Unavailable Denny Moses Consulting Unavailable Denny Moses Attending Unavailable Oleghe, Efewongbe Referring Unavailable Oleghe, Efewongbe Attending Unavailable Oleghe, Efewongbe Referring Unavailable Oleghe, Efewongbe Primary Care Unavailable Gage Huggins Attending Unavailable Oleghe, Efewongbe Referring Unavailable Oleghe, Efewongbe Primary Care Unavailable Gage Huggins Consulting Unavailable Gage Huggins Attending Unavailable Isckarus Mansour Referring Unavailable Oleghe, Efewongbe Primary Care Unavailable Isckarus, Mansour Attending Unavailable Oleghe, Efewongbe Referring Unavailable Oleghe, Efewongbe Primary Care Unavailable Isckarus, [place] Consulting Unavailable Isckarus, [place] Attending Unavailable Oleghe, Efewongbe Referring Unavailable Oleghe, Efewongbe Primary Care Unavailable Isckarus, [place] Consulting Unavailable Isckarus, [place] Attending Unavailable Isckarus, [place] Referring Unavailable Oleghe, Efewongbe Primary Care Unavailable Oleghe, Efewongbe Attending Unavailable Oleghe, Efewongbe Referring Unavailable Oleghe, Efewongbe Primary Care Unavailable Isckarus, Mansour Attending Unavailable Oleghe, Efewongbe Referring Unavailable Oleghe, Efewongbe Primary Care Unavailable Isckarus, [place] Consulting Unavailable Isckarus, [place] Attending Unavailable Isckarus, [place] Referring Unavailable Oleghe, Efewongbe Primary Care Unavailable Yury Cruz Attending Unavailable Oleghe, Efewongbe Referring Unavailable Oleghe, Efewongbe Primary Care Unavailable Isckarus, [place] Consulting Unavailable Isckarus, [place] Attending Unavailable Oleghe, Efewongbe Referring Unavailable Oleghe, Efewongbe Primary Care Unavailable Isckarus, [place] Consulting Unavailable Isckarus, [place] Attending Unavailable Isckarus, [place] Referring Unavailable Oleghe, Efewongbe Primary Care Unavailable Isckarus, [place] Attending Unavailable Oleghe, Efewongbe Referring Unavailable Oleghe, Efewongbe Primary Care Unavailable Isckarus, [place] Consulting Unavailable Isckarus, [place] Attending Unavailable Oleghe, Efewongbe Referring Unavailable Oleghe, Efewongbe Primary Care Unavailable Isckarus, [place] Consulting Unavailable Isckarus, [place] Attending Unavailable Oleghe, Efewongbe Referring Unavailable Oleghe, Efewongbe Primary Care Unavailable Isckarus, [place] Consulting Unavailable Asmita Sommers Attending Unavailable Oleghe, Efewongbe Referring Unavailable Oleghe, Efewongbe Primary Care Unavailable Isckarus, [place] Consulting Unavailable Oleghe, Efewongbe Attending Unavailable Oleghe, Efewongbe Referring Unavailable Isckarus, [place] Attending Unavailable Oleghe, Efewongbe Referring Unavailable Oleghe, Efewongbe Primary Care Unavailable Isckarus, [place] Consulting Unavailable Isckarus, [place] Attending Unavailable Oleghe, Efewongbe Referring Unavailable Oleghe, Efewongbe Primary Care Unavailable Isckarus, [place] Consulting Unavailable Isckarus, [place] Attending Unavailable Oleghe, Efewongbe Referring Unavailable Oleghe, Efewongbe Primary Care Unavailable Isckarus, [place] Consulting Unavailable Oleghe, Efewongbe Primary Care Unavailable Sruthi Roshan Attending Unavailable Isckarus, [place] Attending Unavailable Oleghe, Efewongbe Referring Unavailable Oleghe, Efewongbe Primary Care Unavailable Isckarus, [place] Consulting Unavailable PROBLEMS PROBLEMS DATE TYPE CONDITION / CODE ATTENDING STATUS SOURCE 08/04/2018 Unknown C34.91 - Malignant Isckarus, Active [place] neoplasm of [facility] unspecified part of Hospital right bronchus or Repository lung / C34.91(ICD-10) 07/07/2018 Unknown C34.90 - Malignant Isckarus, Active [place] neoplasm of [facility] unspecified part of Hospital unspecified bronchus Repository or lung / C34.90(ICD-10) 07/07/2018 Unknown J40 - Bronchitis, not Isckarus, Active [place] specified as acute or [facility] chronic / J40(ICD-10) Hospital Repository 05/22/2018 Unknown I26.99 - Other Isckarus, Active [place] pulmonary embolism [facility] without acute cor Hospital pulmonale / Repository I26.99(ICD-10) 04/14/2018 Unknown C34.31 - Malignant Yury Cruz Active [place] neoplasm of lower Community lobe, right bronchus Hospital or lung / Repository C34.31(ICD-10) 04/14/2018 Unknown Z79.899 - Other long Yury Cruz Active [place] term (current) drug Community therapy / Hospital Z79.899(ICD-10) Repository 03/27/2018 Unknown C77.9 - Secondary and Isckarus, Active [place] unspecified malignant [facility] neoplasm of lymph Hospital node, unspecified / Repository C77.9(ICD-10) 03/27/2018 Unknown 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 management of Hospital vascular access Repository device / Z45.2(ICD-10) 12/16/2017 Unknown E87.1 - Denny Moses Active [place] Hypo-osmolality and Community hyponatremia / Hospital E87.1(ICD-10) Repository 12/16/2017 Unknown R41.82 - Altered Denny Moses Active [place] mental status, Community unspecified / Hospital R41.82(ICD-10) Repository 10/03/2017 Unknown G40.909 - Epilepsy, Oleghe, Active [place] unspecified, not [facility] intractable, without Hospital status epilepticus / Repository G40.909(ICD-10) 10/03/2017 Unknown R93.8 - Abnormal Oleghe, Active [place] findings on [facility] diagnostic imaging of Hospital other specified body Repository structures / R93.8(ICD-10) 10/03/2017 Unknown F32.9 - Major Oleghe, Active [place] depressive disorder, [facility] single episode, Hospital unspecified / Repository F32.9(ICD-10) 10/03/2017 Unknown F17.201 - Nicotine Ricky Vargas, Active [place] dependence, D.O. Community unspecified, in Hospital remission / Repository F17.201(ICD-10) 08/28/2017 Unknown Z72.0 - Tobacco use / Oleghe, Active [place] Z72.0(ICD-10) [facility] Hospital Repository 08/28/2017 Unknown Z00.00 - Encounter Oleghe, Active [place] for general adult [facility] medical examination Hospital without abnormal Repository findings / Z00.00(ICD-10) 10/03/2017 Unknown R91.1 - Solitary Oleghe, Active [place] pulmonary nodule / [facility] R91.1(ICD-10) Hospital Repository 10/03/2017 Unknown M53.9 - Dorsopathy, Oleghe, Active [place] unspecified / [facility] M53.9(ICD-10) Hospital Repository 10/03/2017 Unknown R56.9 - Unspecified Oleghe, Active [place] convulsions / [place] Community R56.9(ICD-10) Hospital Repository 09/13/2017 Unknown G45.4 - Transient Jopperi, Richie Active [place] global amnesia / Community G45.4(ICD-10) Hospital Repository PROCEDURES PROCEDURES No Procedure Records FoundRESULTS RESULTS ONCOLOGY VISIT REPORT Observed: 08/04/2018 Status: F Source: [place] 9:43 AM [facility] REPOSITORY [facility] [address] [place] [address] OFFICE VISIT Date of Service: 08/04/18913 MR#: [id number] Acct: [id number] Name: WALI HALL Rep #: [id number] : 1960 From: Gage Huggins MD Age/Sex: 58/F Location: OMD Status: Signed - Problem List (1) Small cell lung cancer in adult Status: Chronic (2) Lung nodule, multiple Status: Chronic (3) Regional lymph node metastasis present Status: Chronic (4) Anemia Status: Chronic (5) Seizure disorder Status: Chronic - Date of Service Date of Service:: 08/04/18 - Chief Complaint Lung cancer on treatment - History of Present Illness Patient is a 57-year-old female smoker till the diagnosis of cancer was made who presented in late 2017 following a seizure and found to have a low sodium. Further workup in August 2017 included CAT scan of the chest, PET scan, and bone scan showed mediastinal and right hilar adenopathy, multiple bilateral lung nodules too small to further characterize on PET, questionable thoracic vertebral lesion (seen on CT but PET and bone scan did not suggest metastatic disease close). EBUS in September 2017 biopsy confirmed small cell lung cancer. Brain imaging did not show metastatic disease in the [employer]. Patient was initially seen by Dr. Moses and was prescribed cisplatin-irinotecan (received 2 cycles September - October 2017) for the goal of palliation plus or minus modest survival advantage for stage IV disease. She has tolerated this therapy with expected side effects and mostly troubled with GI toxicities. November 2017 she was hospitalized with bilateral pulmonary embolism and was started on Lovenox. Treatment: Cisplatin-irinotecan -10/2017 (2 cycles) excess toxicity (GI) [place] Carboplatin- etoposide -12/2017 (2 CYCLES) v. 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 Denies: Fever, Sweats, Weight loss, Appetite change, Chills Cardiovascular:: Reports: Dyspnea on exertion. Denies: Chest pain, Palpitations, Orthopnea, PND, Shortness of breath Respiratory: Reports: Shortness of breath upon exertion. Denies: Cough, Hemoptysis, Shortness of Breath, Wheezing Gastrointestinal:: Denies: Abdominal pain, Nausea, Vomiting, Diarrhea, Constipation, Hematochezia Genitourinary: Denies: Dysuria, Hematuria, 15, Flank pain Musculoskeletal:: Denies: Back pain, Myalgia, Arthralgia Skin: Denies: Rash, Skin Changes, Wounds Neurological:: Denies: Headache, Dizziness, Visual changes, Tinnitus, Hearing loss Psychiatric: Denies: Anxiety, Depression, Homicidal Ideations, Suicidal Ideations Vital Signs Height 5 ft 5 in Weight: 77.746 kg Weight in Pounds 171.4 lbs BMI 26.5 Pulse Ox 96 - Physical Exam General: Alert, Oriented x3, No apparent distress, - - ECOG 1 HEENT: Atraumatic, PERRLA, EOMI, Normocephalic Oropharynx:: Dry mucosa Neck:: Supple, Trachea midline, - - Port okay. Negative for: JVD, bilateral Cardiac:: Regular rate, Regular rhythm, Normal S1, Normal S2. Negative for: Murmur Lungs: Clear to auscultation, Diminished, Excusion symmetrical. Negative for: Rhonchi, Wheezes Abdomen:: Soft, Non-tender, Non-distended. Negative for: Hepatosplenomegaly Extremities:: Negative for: Cyanosis, Edema Neurological: Neuro grossly intact Skin:: Negative for: Lesions, Rash, Petechiae, Ecchymosis Psychiatric:: Appropriate affect, Euthymic Lymphatics:: Negative for: Cervical lymphadenopathy, Supraclavicular lymphadenopathy Assessment and Plan 57-year-old female smoker who presented with altered mental status, and seizures secondary to hyponatremia. Further workup revealed: 1- Small cell lung cancer metastatic to right hilar and mediastinal lymph nodes with indeterminate bilateral multiple pulmonary nodules (some nodules are calcified and consistent with granulomas, others are noncalcified and most likely represent metastatic disease). PDL 1 testing not done on September 2017 biopsy due to insufficient material. Clinically stage IV at presentation. She was initially treated under the care of Dr. Salazar with standard cisplatin Irenotecan and disease appears to have responded in the mediastinum and stable and the lungs after 2 cycles of therapy. However patient has had significant side effects impacting her quality of life (mainly metallic taste, diarrhea and fatigue) and therefore treatment was changed to carboplatin etoposide and she received further 2 cycles and disease remains stable. Toxicity from this line of therapy was mainly bone marrow and symptomatic anemia. Her chemotherapy was administered between September 2017 through December 2017. Her disease responded well and she went into a good remission and the patient functionally improved while on a holiday off chemotherapy. By May 2018 she has radiologic evidence of early relapse of the disease in the chest albeit still small volume and asymptomatic. 2- Developed malignancy induced hypercoagulability with bilateral pulmonary embolism November 2017, initially treated with Lovenox , now on oral savysa without bleeding complications. 3-anemia of cancer and chemotherapy , improved during holiday off chemotherapy 4-lower extremities edema, secondary to salt and fluid retention, improved as she stopped oral salt supplement and no recurrence of hyponatremia. 5-week of July 07, 2018 reports symptoms suggestive of an upper respiratory tract infection non-complicated probably viral and is not neutropenic but in view of ongoing chemotherapy advice oral Z-Ronni to prevent secondary infection. Recommendations: #1 With remission duration of less than 6 months , started June 02, 2018 second line therapy with a non-kipnuk single agent Taxol on the weekly schedule 3 weeks on then 1 week rest. Treatment well-tolerated without excessive toxicities (noted scalp hair loss and a mild anemia) will defer use of PDL 1 inhibitors for third line (consistent with FDA approval). She on cycle 3 , continue to be monitored on a weekly basis and CT scan reassessment of disease status before cycle 4. #2 Long-term VTE secondary prophylaxis with anticoagulant. #3 Pros and cons of prophylactic cranial radiation for stage IV disease were discussed in a formal consultation was Dr. Cruz #4 Hyponatremia, resolved with no evidence for fluid retention will continue to hold sodium supplementation and watch sodium level. #5 Seizures secondary to hyponatremia no recurrences patient was weaned off anti-seizure medication by PCP was no recurrences. Seen was her impression and plan discussed and Their questions answered. Follow-up in 1 week Medications: Prescriptions This Visit Medication Instructions Recorded Lidocaine/Prilocaine 30 gm TP DAILY PRN PRN #1 cream..g. 10/07/17 Primary Care Provider: Andrés Helms MD Referring Provider: 08/04/18 0943 <Electronically signed by Gage Huggins MD> Date Gage Huggins MD Cosigner Signature: Date (if applicable) CC: CBC W/DIFF, AUTOMATED Collected: 08/04/2018 Status: F Source: [place] 9:00 AM [facility] REPOSITORY TYPE CODE TESTS RESULT OUT OF RANGE REFERENCE UNITS LAB L100.1000 4.4-11.0 K/mm3 Normal WBC 5.7 LAB L100.1200 4.2-5.4 M/mm3 Low RBC 3.33 LAB L100.1300 12.0-15.0 g/dl Low HGB 10.4 LAB L100.1400 37-47 % Low HCT 32.1 LAB L100.1500 81-99 fL Normal MCV 96.4 LAB L100.1600 27.0-32.0 pg Normal MCH 31.2 LAB L100.1700 32-36 g/gl Normal MCHC 32.4 LAB L100.1810 11.6-14.6 % Normal RDW CV 14.2 LAB L100.1820 35.1-43.9 fl High RDW SD 49.3 LAB L100.1900 150-450 K/mm3 Normal PLT 309 LAB L100.2000 6.2-12.0 fl Normal MPV 8.4 LAB L100.2100 47-70 % Normal NEUT% 51.5 LAB L100.2200 19-41 % Normal LY% 32.8 LAB L100.2300 0-10 % Normal MONO% 8.8 LAB L100.2400 0-5 % Normal EO% 4.6 LAB L100.2500 0-1 % High BASO% 1.4 LAB L100.2550 0.0-0.9 % Normal IM GRAN % 0.900 Result Comment: IG% - Immature Granulocytes (promyelocytes, myelocytes and metamyelocytes) > 1% indicates that a LEFT SHIFT is Present. LAB L100.2620 2.0-7.7 X10 3/uL Normal Absolute Neut 2.9 LAB L100.2720 0.83-4.51 X10 3/ul Normal Absolute Lymph 1.87 Performed By: #### L100.0100 #### [facility] [address] [place], [address] ONCOLOGY VISIT REPORT Observed: 07/28/2018 Status: F Source: [place] 12:59 PM [facility] REPOSITORY [facility] [address] [place] [address] OFFICE VISIT Date of Service: 07/28/18 1019 MR#: [id number] Acct: [id number] Name: WALI HALL Rep #: [id number] : 1960 From: Gage Huggins MD Age/Sex: 58/F Location: ONC Status: Signed - Problem List (1) Small cell lung cancer in adult Status: Chronic (2) Lung nodule, multiple Status: Chronic (3) Regional lymph node metastasis present Status: Chronic (4) Anemia Status: Chronic (5) Seizure disorder Status: Chronic - Date of Service Date of Service:: 07/28/18 - Chief Complaint Lung cancer on treatment - History of Present Illness Patient is a 57-year-old female smoker till the diagnosis of cancer was made who presented in late 2017 following a seizure and found to have a low sodium. Further workup in August 2017 included CAT scan of the chest, PET scan, and bone scan showed mediastinal and right hilar adenopathy, multiple bilateral lung nodules too small to further characterize on PET, questionable thoracic vertebral lesion (seen on CT but PET and bone scan did not suggest metastatic disease close). EBUS in September 2017 biopsy confirmed small cell lung cancer. Brain imaging did not show metastatic disease in the [employer]. Patient was initially seen by Dr. Moses and was prescribed cisplatin-irinotecan (received 2 cycles September October 2017) for the goal of palliation plus or minus modest survival advantage for stage IV disease. She has tolerated this therapy with expected side effects and mostly troubled with GI toxicities. November 2017 she was hospitalized with bilateral pulmonary embolism and was started on Lovenox. Treatment: Cisplatin-irinotecan -10/2017 (2 cycles) excess toxicity (GI) MO Carboplatin- etoposide (2 CYCLES) v. 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 Denies: Chest pain, Palpitations, Orthopnea, PND, Shortness of breath Respiratory: Reports: Cough, Shortness of breath upon exertion, Sputum production. Denies: Hemoptysis, Shortness of Breath, Wheezing Gastrointestinal:: Denies: Abdominal pain, Nausea, Vomiting, Diarrhea, Constipation, Hematochezia Genitourinary: Denies: Dysuria, Hematuria, 15, Flank pain Musculoskeletal:: Denies: Back pain, Myalgia, Arthralgia Skin: Denies: Rash, Skin Changes, Wounds Neurological:: Denies: Headache, Dizziness, Visual changes, Tinnitus, Hearing loss Psychiatric: Denies: Anxiety, Depression, Homicidal Ideations, Suicidal Ideations Vital Signs Height 5 ft 5 in Weight: 77.746 kg Weight in Pounds 171.4 lbs BMI 26.5 Pulse Ox 96 - Physical Exam General: Alert, Oriented x3, No apparent distress, - - ECOG 1 HEENT: Atraumatic, PERRLA, EOMI, Normocephalic Oropharynx:: Dry mucosa Neck:: Supple, Trachea midline, - - Port okay. Negative for: JVD, bilateral Cardiac:: Regular rate, Regular rhythm, Normal S1, Normal S2. Negative for: Murmur Lungs: Clear to auscultation, Diminished, Excusion symmetrical. Negative for: Rhonchi, Wheezes Abdomen:: Soft, Non-tender, Non-distended. Negative for: Hepatosplenomegaly Extremities:: Negative for: Cyanosis, Edema Neurological: Neuro grossly intact Skin:: Negative for: Lesions, Rash, Petechiae, Ecchymosis Psychiatric:: Appropriate affect, Euthymic Lymphatics:: Negative for: Cervical lymphadenopathy, Supraclavicular lymphadenopathy Laboratory Data: Laboratory Tests WBC 4.9 (4.4-11.0) K/mm3 RBC 3.32 L (4.2-5.4) M/mm3 Hgb 10.5 L (12.0-15.0) g/dl Assessment and Plan 57-year-old female smoker who presented with altered mental status, and seizures secondary to hyponatremia. Further workup revealed: 1- Small cell lung cancer metastatic to right hilar and mediastinal lymph nodes with indeterminate bilateral multiple pulmonary nodules (some nodules are calcified and consistent with granulomas, others are noncalcified and most likely represent metastatic disease). PDL 1 testing not done on September 2017 biopsy due to insufficient material. Clinically stage IV at presentation. She was initially treated under the care of Dr. Salazar with standard cisplatin Irenotecan and disease appears to have responded in the mediastinum and stable and the lungs after 2 cycles of therapy. However patient has had significant side effects impacting her quality of life (mainly metallic taste, diarrhea and fatigue) and therefore treatment was changed to carboplatin etoposide and she received further 2 cycles and disease remains stable. Toxicity from this line of therapy was mainly bone marrow and symptomatic anemia. Her chemotherapy was administered between September 2017 through December 2017. Her disease responded well and she went into a good remission and the patient functionally improved while on a holiday off chemotherapy. By May 2018 she has radiologic evidence of early relapse of the disease in the chest albeit still small volume and asymptomatic. 2- Developed malignancy induced hypercoagulability with bilateral pulmonary embolism November 2017, initially treated with Lovenox , now on oral savysa without bleeding complications. 3-anemia of cancer and chemotherapy , improved during holiday off chemotherapy 4-lower extremities edema, secondary to salt and fluid retention, improved as she stopped oral salt supplement and no recurrence of hyponatremia. 5-week of July 07, 2018 reports symptoms suggestive of an upper respiratory tract infection non-complicated probably viral and is not neutropenic but in view of ongoing chemotherapy advice oral Z-Ronni to prevent secondary infection. Recommendations: #1 With remission duration of less than 6 months , started June 02, 2018 second line therapy with a non-kipnuk single agent Taxol on the weekly schedule 3 weeks on then 1 week rest. Treatment well-tolerated without excessive toxicities (noted scalp hair loss and a mild anemia) will defer use of PDL 1 inhibitors for third line (consistent with FDA approval). She will start cycle 3 this week, continue to be monitored on a weekly basis and CT scan reassessment of disease status in 4 weeks. #2 Long-term VTE secondary prophylaxis with anticoagulant. #3 Pros and cons of prophylactic cranial radiation for stage IV disease were discussed in a formal consultation was Dr. Cruz #4 Hyponatremia, resolved with no evidence for fluid retention will continue to hold sodium supplementation and watch sodium level. #5 Seizures secondary to hyponatremia no recurrences patient was weaned off anti-seizure medication by PCP was no recurrences. Seen was her impression and plan discussed and Their questions answered. Follow-up in 1 week Medications: Prescriptions This Visit Medication Instructions Recorded Lidocaine/Prilocaine 30 gm TP DAILY PRN PRN #1 cream..g. 10/07/17 Primary Care Provider: Andrés Helms MD Referring Provider: 07/28/18 1259 <Electronically signed by Gage Huggins MD> Date Gage Huggins MD Cosigner Signature: Date (if applicable) CC: CBC W/DIFF, AUTOMATED Collected: 07/28/2018 Status: F Source: [place] 9:22 AM [facility] REPOSITORY TYPE CODE TESTS RESULT OUT OF RANGE REFERENCE UNITS LAB L100.1000 4.4-11.0 K/mm3 Normal WBC 4.9 LAB L100.1200 4.2-5.4 M/mm3 Low RBC 3.32 LAB L100.1300 12.0-15.0 g/dl Low HGB 10.5 LAB L100.1400 37-47 % Low HCT 32.0 LAB L100.1500 81-99 fL Normal MCV 96.4 LAB L100.1600 27.0-32.0 pg Normal MCH 31.6 LAB L100.1700 32-36 g/gl Normal MCHC 32.8 LAB L100.1810 11.6-14.6 % Normal RDW CV 14.0 LAB L100.1820 35.1-43.9 fl High RDW SD 49.1 LAB L100.1900 150-450 K/mm3 Normal PLT 400 LAB L100.2000 6.2-12.0 fl Normal MPV 8.5 LAB L100.2100 47-70 % Normal NEUT% 47.5 LAB L100.2200 19-41 % Normal LY% 28.1 LAB L100.2300 0-10 % High MONO% 19.1 LAB L100.2400 0-5 % Normal EO% 3.7 LAB L100.2500 0-1 % Normal BASO% 1.0 LAB L100.2550 0.0-0.9 % Normal IM GRAN % 0.600 Result Comment: IG% - Immature Granulocytes (promyelocytes, myelocytes and metamyelocytes) > 1% indicates that a LEFT SHIFT is Present. LAB L100.2620 2.0-7.7 X10 3/uL Normal Absolute Neut 2.3 LAB L100.2720 0.83-4.51 X10 3/ul Normal Absolute Lymph 1.37 Performed By: #### L100.0100 #### [facility] [address] [place], [address] COMPREHENSIVE METABOLIC Collected: 07/28/2018 Status: F Source: [facility] 9:22 AM [facility] REPOSITORY TYPE CODE TESTS RESULT OUT OF RANGE REFERENCE UNITS LAB L501.0100 74-106 mg/dL Normal GLU 86 Result Comment: Please note revised GLUCOSE reference range effective 2017. LAB L501.1000 7-18 mg/dL Normal BUN 11 LAB L501.1100 0.55-1.02 mg/dL Normal CREAT,SERUM 0.83 Result Comment: The validity of the calculated GFR AND GFRAA in patients over 70 years has not been determined. Clinical correlation is essential. LAB L501.1110 >60 mL/min Normal EST GFR 74 Result Comment: Non- GFR Calc LAB L501.1115 >60 mL/min Normal EST GFR - AA 90 Result Comment: GFR Calc LAB L501.1255 ml/min Normal Estimated CRCL 64.86 LAB L501.1300 10-20 RATIO Normal BUN/CRE 13.2 LAB L501.1500 6.4-8. g/dL Normal 2 T PROT 7.0 LAB L501.1800 3.2-5. g/dL Normal 0 ALB 3.2 LAB L501.1950 2.2-4. g/dL Normal 2 GLOB 3.8 LAB L501.2000 0.9-2. RATIO Low 4 A/G 0.8 LAB L501.2200 8.5-10 mg/dL Normal .1 CA 8.7 LAB L501.4100 15-37 U/L Normal AST 18 LAB L501.4305 45-117 U/L Normal ALK P 77 LAB L501.4405 13-56 U/L Normal ALT 15 LAB L501.4600 0.20-1 mg/dL Normal .00 T BILI 0.40 LAB L501.5300 136-14 mmol/L Normal 5 NA 138 LAB L501.5600 3.5-5. mmol/L Normal 1 K 4.2 LAB L501.5900 98-107 mmol/L Normal CL 105 LAB L501.6100 21.0-3 mmol/L Normal 2.0 CO2 26.0 LAB L501.6200 5-15 Normal GAP 7 Performed By: #### L500.4050 #### [facility] [address] [place] [address]. [place], [address] 12 LEAD ELECTROCARDIOGRAM Observed: 07/22/2018 Status: F Source: [place] 3:22 PM [facility] REPOSITORY [facility] Cardiovascular Services [address] [place] [address] 12 Lead EKG 07/20/18 1818 MR#: [id number] Acct: [id number] Name: WALI HALL Rep #: [id number] : 1960 57 From: Erik Salmon MD Attending Dr: Status: DEP ER Ordering Dr: Roshan Negro DO Date: 07/20/18 Location: ED Sex: F C Admitted: Test Reason : FEVER Blood Pressure : / mmHG Vent. Rate : 099 BPM Atrial Rate : 099 BPM P-R Int : 158 ms QRS Dur : 078 ms QT Int : 298 ms P-R-T Axes : 079 072 069 degrees QTc Int : 382 ms Normal sinus rhythm Nonspecific T wave abnormality Abnormal ECG Confirmed by RAMAKRISHNA GONZALEZ, ERIK ([id number]), video news editor MARSHA CARROLL ([id number]) on 07/22/2018 3:21:33 PM Referred By: TL Confirmed By:ERIK SALMON MD 07/22/18 1521 Date Erik Salmon MD CC: Andrés Helms MD; Roshan Fay EMERGENCY DEPARTMENT Observed: 07/20/2018 Status: F Source: [place] SUMMARY 9:17 PM [facility] REPOSITORY [facility] Medical Records Department [address] [place] [address] Emergency Department Summary 07/20/18 1759 MR#: [id number] Acct: [id number] Name: WALI HALL Rep #: [id number] : 1960 57 From: Roshan Guan PCP: Andrés Helms MD Status: REG ER - ER Visit Summary Date of Service: 07/20/18 Chief Complaint: Fever History of Present Illness: The patient is a 57 F fever 101 today. Chills and mild cough 2 days ago. 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 Followed by Dr. Khan. Patient initiated 2 rounds of chemo was in remission restarted 2 months ago. Her last treatment was 6 days ago. No new last however she states she did receive steroids Benadryl and Pepcid which was used as part of her treatment. Treated with Taxol. No urinary symptoms. No vomiting or diarrhea. Has not had fever with her chemo treatments. Called oncologist office, spoke with nurse practitioner who sent her to the ED. Remote tobacco history. Physical Examination: General: Alert and oriented 3, no acute distress HEENT: Normocephalic, atraumatic. Moist mucosa membranes Neck: supple, nontender. Cardiovascular: Regular tachycardic rate and rhythm, no murmurs Respiratory: Normal breath sounds, symmetric, no distress Abdomen: Soft, nontender, nondistended Extremities: Nontender, no edema, pulses intact 4 Neuro: no focal neurological deficits. Test Results: White count 2.5, absolute neutrophil 1.5. Creatinine 0.97. Influenza negative. Blood and urine culture pending. Lactic acid 0.8. Chest x-ray pending final read Emergency Department Course and Treatment: Patient febrile in the ED. Chemo patient. Neutropenic workup initiated. Influenza negative. Chest x-ray reviewed myself show no acute process however awaiting final read. Labs noted white count 2.5 absolute neutrophil 1.5. Patient remained stable was given Tylenol fever improved. Awaiting final read for chest x-ray for discussion with oncology for disposition and care. However on reevaluation at 2114, spouse became frustrated and wanted to leave. Discussed possibility of getting worse. He also states possibly get better. Patient alert and oriented x3. We will have signed out AGAINST MEDICAL ADVICE. Discussed return at any time for reevaluation. They will call their oncologist tomorrow. Treatment Plan: [] Disposition: Discharge Impression: 1. Fever of unknown origin 2. Chemotherapy This note was generated with [employer] dictation software. It may contain incorrect words, spelling, and punctuation that were not noted in review of the chart prior to signing ED Disposition - Plan for ED Patient: Disposition: Against Medical Advice Chief Complaint: Fever Diagnosis: Fever Instructions: ED Fever Unconf Cause Referrals: Andrés Helms MD [Primary Care Provider] - Gage Huggins MD [STAFF PHYSICIAN] - As soon as possible Additional Instructions: You have a fever. White count 2.5, absolute neutrophils 1.5. Other labs are stable. I did not have all your results back including final read on her chest x-ray. Blood cultures and urine cultures are in the lab. Your choosing to leave AGAINST MEDICAL ADVICE. Call your oncologist tomorrow for follow-up. Return anytime for reevaluation. What to do if you have Problems For any increased pain, shortness of breath, bleeding, nausea or vomiting, chest pain, or any unexpected problems, contact your Primary Care Provider. Call [email or web address] ([phone]) or report to the closest Emergency Room. Call 911 if necessary. 07/20/182116 <Electronically signed by Roshan Guan> Date Roshan Guan Cosigner Signature (If Indicated): Date CC: Andrés Helms MD URINALYSIS, COMPLETE Collected: 07/20/2018 Status: F Source: [place] 6:45 PM [facility] REPOSITORY Order Comment: Has pt arrived? Y How was Urine Obtained? CLEAN CATCH TYPE CODE TESTS RESULT OUT OF RANGE REFERENCE UNITS LAB L400.3000 Yellow COLOR Normal Yellow LAB L400.3050 Clear Normal CLARITY Clear LAB L400.3200 Normal mg/dl Normal GLUCOSE, UR Normal LAB L400.3300 Negative mg/dL Normal BILIRUBIN URINE Negative LAB L400.3400 Negative mg/dl Normal KETONE UR Negative LAB L400.3465 1.002-1.030 Normal SP.GR. DIPSTX 1.010 LAB L400.3550 5.0 - 8.0 pH UR Normal 7.0 LAB L400.3600 Negative mg/dl PROT Normal DIPSTX Negative LAB L400.3700 Normal mg/dl Normal UROBILI Normal LAB L400.3750 Negative Normal NITRITE UR Negative LAB L400.3780 Negative /ul High OCCULT BLOOD-UR 150 LAB L400.3800 Negative /ul High LEUK 25 ESTERASE LAB L400.4050 0-5 /hpf WBC Normal 0-5 SEEN LAB L400.4100 0-5 /hpf Normal RBC-UA 10-25 SEEN LAB L400.4150 5-10 /hpf SQUAM Normal EPI 0-5 SEEN LAB L400.4300 None Seen /hpf Normal BACTERIA RARE LAB L400.4350 <or=2+ /hpf 0 Normal MUCUS, URINE SEEN Performed By: #### L400.0001 #### [facility] [address] [place], [address] Observed: 07/20/2018 Status: F Source: [place] CULTURE, URINE 6:45 PM [facility] REPOSITORY Order Date: 07/20/18 Has pt arrived? Y Urine Culture ORGANISM 1: Mixed Gram Positive Organisms [place] Count 1000-10,000 MIX CULTURE Mixed contaminants. Submit a new specimen if indicated. Performed By: #### M100.0650 #### [facility] [address] [place], [address] Observed: 07/20/2018 Status: F Source: [place] CULTURE, BLOOD (WB) 6:30 PM [facility] REPOSITORY BC No growth in 5 days. Performed By: #### M200.1000 #### [facility] [address] [place], [address] CBC W/DIFF, AUTOMATED Collected: 07/20/2018 Status: F Source: [place] 6:15 PM [facility] REPOSITORY TYPE CODE TESTS RESULT OUT OF RANGE REFERENCE UNITS LAB L100.1000 4.4-11.0 K/mm3 Low WBC 2.5 LAB L100.1200 4.2-5.4 M/mm3 Low RBC 3.02 LAB L100.1300 12.0-15.0 g/dl Low HGB 10.0 LAB L100.1400 37-47 % Low HCT 29.3 LAB L100.1500 81-99 fL Normal MCV 97.0 LAB L100.1600 27.0-32.0 pg High MCH 33.1 LAB L100.1700 32-36 g/gl Normal MCHC 34.1 LAB L100.1810 11.6-14.6 % Normal RDW CV 14.4 LAB L100.1820 35.1-43.9 fl High RDW SD 50.3 LAB L100.1900 150-450 K/mm3 Normal PLT 266 LAB L100.2000 6.2-12.0 fl Normal MPV 9.0 LAB L100.2100 47-70 % Normal NEUT% 60.0 LAB L100.2200 19-41 % Normal LY% 26.1 LAB L100.2300 0-10 % Normal MONO% 9.1 LAB L100.2400 0-5 % Normal EO% 3.2 LAB L100.2500 0-1 % High BASO% 1.2 LAB L100.2550 0.0-0.9 % Normal IM GRAN % 0.400 Result Comment: IG% - Immature Granulocytes (promyelocytes, myelocytes and metamyelocytes) > 1% indicates that a LEFT SHIFT is Present. LAB L100.2620 2.0-7.7 X10 3/uL Low Absolute Neut 1.5 LAB L100.2720 0.83-4.51 X10 3/ul Low Absolute Lymph 0.66 Performed By: #### L100.0100 #### [facility] [address] [facility] [address] Observed: 07/20/2018 Status: F Source: [place] INFLUENZA A+B (RAPID 6:15 PM [facility] [place]) REPOSITORY FLU A/B Rapid Negative test results should be confirmed by culture. Order Rapid Viral Culture for Influenzae A+B ([id number]) if clinically indicated. Influenza Ag, Direct Presumptive NEGATIVE for Influenza A/B Antigen (See Note) Performed By: #### M101.0101 #### [facility]. [facility] 996201 PROTHROMBIN TIME W/INR Collected: 07/20/2018 Status: F Source: [place] 6:15 PM [facility] REPOSITORY TYPE CODE TESTS RESULT OUT OF RANGE REFERENCE UNITS LAB L300.4150 11.7-14.9 SECONDS High PROTIME 16.6 LAB L300.4200 Normal INR 1.3 Performed By: #### L300.3900, L300.4310 #### [facility]1 [facility] [place], [address] PARTIAL THROMBOPLAST Collected: 07/20/2018 Status: F Source: [place] TIME 6:15 PM [facility] REPOSITORY TYPE CODE TESTS RESULT OUT OF RANGE REFERENCE UNITS LAB L300.4310 24.1-36.2 Seconds Normal PTT 34.4 Performed By: #### L300.3900, L300.4310 #### [facility] [address] [place], [address] COMPREHENSIVE METABOLIC Collected: 07/20/2018 Status: F Source: [place] PROFIL 6:15 PM [facility] REPOSITORY TYPE CODE TESTS RESULT OUT OF RANGE REFERENCE UNITS LAB L501.0100 74-106 mg/dL Normal GLU 87 Result Comment: Please note revised GLUCOSE reference range effective 2017. LAB L501.1000 7-18 mg/dL Normal BUN 15 LAB L501.1100 0.55-1.02 mg/dL Normal CREAT,SERUM 0.97 Result Comment: The validity of the calculated GFR AND GFRAA in patients over 70 years has not been determined. Clinical correlation is essential. LAB L501.1110 >60 mL/min Normal EST GFR 63 Result Comment: Non- GFR Calc LAB L501.1115 >60 mL/min Normal EST GFR - AA 76 Result Comment: GFR Calc LAB L501.1255 ml/min Normal Estimated CRCL 56.19 LAB L501.1300 10-20 RATIO Normal BUN/CRE 15.5 LAB L501.1500 6.4-8. g/dL Normal 2 T PROT 6.6 LAB L501.1800 3.2-5. g/dL Low 0 ALB 3.1 LAB L501.1950 2.2-4. g/dL Normal 2 GLOB 3.5 LAB L501.2000 0.9-2. RATIO Normal 4 A/G 0.9 LAB L501.2200 8.5-10 mg/dL Low .1 CA 8.0 LAB L501.4100 15-37 U/L Normal AST 18 LAB L501.4305 45-117 U/L Normal ALK P 69 LAB L501.4405 13-56 U/L Normal ALT 14 LAB L501.4600 0.20-1 mg/dL Normal .00 T BILI 0.50 LAB L501.5300 136-14 mmol/L Low 5 NA 132 LAB L501.5600 3.5-5. mmol/L Normal 1 K 4.0 LAB L501.5900 98-107 mmol/L Normal CL 100 LAB L501.6100 21.0-3 mmol/L Normal 2.0 CO2 25.0 LAB L501.6200 5-15 Normal GAP 7 Performed By: #### L500.4050 #### [facility] [address] [place], [address] LACTIC ACID Collected: 07/20/2018 Status: F Source: [place] 6:15 PM [facility] REPOSITORY Order Comment: Yes/No query for Sepsis Lactate Rule Y TYPE CODE TESTS RESULT OUT OF RANGE REFERENCE UNITS LAB L503.6005 0.4-2.0 mmol/L Normal LACTIC ACID 0.8 Performed By: #### L503.6005 #### [facility] [address] [place], [address] Observed: 07/20/2018 Status: F Source: [place] CULTURE, BLOOD (WB) 6:15 PM [facility] REPOSITORY BC No growth in 5 days. Performed By: #### M200.1000 #### [facility] [address] [place], [address] CHEST PA AND LATERAL Observed: 07/20/2018 Status: F Source: [place] 5:59 PM [facility] REPOSITORY [facility] Imaging Services [address] [place] [address] [place] [address] Chest PA and Lateral MR#: [id number] Acct: [id number] Name: HALLWALI L Rep #: [id number] : 1960 F 57 From: Fantasma Izaguirre MD PCP: Andrés Helms MD Status: DEP ER Study: Chest PA and Lateral Date of Exam: 07/20/18 Exam# [id number] Ordering Dr: Roshan Negro DO STUDY: X-RAY CHEST REASON FOR EXAM: Female, 57 years old. Fever and cough TECHNIQUE: PA and lateral views of the chest. COMPARISON: 10/17/2017 FINDINGS: EKG leads overlie the chest. Right IJ subclavian central venous catheter tip in the distal SVC. The lungs are clear and expanded. There is no demonstrated pleural abnormality. Normal size heart. Normal mediastinum and jens. Normal visualized pulmonary arteries. Normal visualized aortic arch and descending thoracic aorta. Normal visualized thoracic spine. Normal visualized ribs, clavicles, and shoulders. There is no demonstrated abnormality of the visualized soft tissue structures of the upper abdomen. RAD/Chest PA and Lateral IMPRESSION: No acute pulmonary process Electronically Signed: Freddy Izaguirre MD at 21:45 EST , Service support , CC: Andrés Helms MD; Roshan Negro [employer] Gasification Technician: Signed ONCOLOGY VISIT REPORT Observed: 07/14/2018 Status: F Source: [place] 9:13 AM [facility] REPOSITORY [facility] [address] [place] [address] OFFICE VISIT Date of Service: 07/14/18 0911 MR#: [id number] Acct: [id number] Name: WALI HALL Rep #: [id number] : 1960 From: Gage Huggins MD Age/Sex: 57/F Location: OMD Status: Signed - Problem List (1) Small cell lung cancer in adult Status: Chronic (2) Lung nodule, multiple Status: Chronic (3) Regional lymph node metastasis present Status: Chronic (4) Anemia Status: Chronic (5) Seizure disorder Status: Chronic - Date of Service Date of Service:: 07/14/18 - Chief Complaint Lung cancer on treatment - History of Present Illness Patient is a 57-year-old female smoker till the diagnosis of cancer was made who presented in late 2017 following a seizure and found to have a low sodium. Further workup in August 2017 included CAT scan of the chest, PET scan, and bone scan showed mediastinal and right hilar adenopathy, multiple bilateral lung nodules too small to further characterize on PET, questionable thoracic vertebral lesion (seen on CT but PET and bone scan did not suggest metastatic disease close). EBUS in September 2017 biopsy confirmed small cell lung cancer. Brain imaging did not show metastatic disease in the [employer]. Patient was initially seen by Dr. Moses and was prescribed cisplatin-irinotecan (received 2 cycles September - October 2017) for the goal of palliation plus or minus modest survival advantage for stage IV disease. She has tolerated this therapy with expected side effects and mostly troubled with GI toxicities. November 2017 she was hospitalized with bilateral pulmonary embolism and was started on Lovenox. Treatment: Cisplatin-irinotecan 2-10/2017 (2 cycles) excess toxicity (GI) MO Carboplatin- etoposide (2 CYCLES) v. good [place] Taxol, single agent June 02, 2018 - Past Medical/Social History Past Medical History Other Past Medical History: [facility] R/T TO LUNG CA Cancer: Lung cancer Social History Social History: No changes Smoking Status Former smoker Review of Systems Constitutional:: Reports: Fatigue - On exertion. Denies: Fever, Sweats, Weight loss, Appetite change, Chills Cardiovascular:: Reports: Dyspnea on exertion. Denies: Chest pain, Palpitations, Orthopnea, PND, Shortness of breath Respiratory: Reports: Shortness of breath upon exertion. Denies: Cough, Hemoptysis, Shortness of Breath, Wheezing Gastrointestinal:: Denies: Abdominal pain, Nausea, Vomiting, Diarrhea, Constipation, Hematochezia Genitourinary: Denies: Dysuria, Hematuria, 15, Flank pain Musculoskeletal:: Denies: Back pain, Myalgia, Arthralgia Skin: Denies: Rash, Skin Changes, Wounds Neurological:: Denies: Headache, Dizziness, Visual changes, Tinnitus, Hearing loss Psychiatric: Denies: Anxiety, Depression, Homicidal Ideations, Suicidal Ideations Vital Signs Height 5 ft 5 in Weight: 78.109 kg Weight in Pounds 172.2 lbs BMI 26.5 Pulse Ox 100 - Physical Exam General: Alert, Oriented x3, No apparent distress, - - ECOG 1 HEENT: Atraumatic, PERRLA, EOMI, Normocephalic Oropharynx:: Dry mucosa Neck:: Supple, Trachea midline, - - Port okay. Negative for: JVD, bilateral Cardiac:: Regular rate, Regular rhythm, Normal S1, Normal S2. Negative for: Murmur Lungs: Clear to auscultation, Diminished, Excusion symmetrical. Negative for: Rhonchi, Wheezes Abdomen:: Soft, Non-tender, Non-distended. Negative for: Hepatosplenomegaly Extremities:: Negative for: Cyanosis, Edema Neurological: Neuro grossly intact Skin:: Negative for: Lesions, Rash, Petechiae, Ecchymosis Psychiatric:: Appropriate affect, Euthymic Lymphatics:: Negative for: Cervical lymphadenopathy, Supraclavicular lymphadenopathy Laboratory Data: Laboratory Tests WBC 3.9 L (4.4-11.0) K/mm3 RBC 3.23 L (4.2-5.4) M/mm3 Hgb 10.5 L (12.0-15.0) g/dl Assessment and Plan 57-year-old female smoker who presented with altered mental status, and seizures secondary to hyponatremia. Further workup revealed: 1- Small cell lung cancer metastatic to right hilar and mediastinal lymph nodes with indeterminate bilateral multiple pulmonary nodules (some nodules are calcified and consistent with granulomas, others are noncalcified and most likely represent metastatic disease). PDL 1 testing not done on September 2017 biopsy due to insufficient material. Clinically stage IV at presentation. She was initially treated under the care of Dr. Salazar with standard cisplatin Irenotecan and disease appears to have responded in the mediastinum and stable and the lungs after 2 cycles of therapy. However patient has had significant side effects impacting her quality of life (mainly metallic taste, diarrhea and fatigue) and therefore treatment was changed to carboplatin etoposide and she received further 2 cycles and disease remains stable. Toxicity from this line of therapy was mainly bone marrow and symptomatic anemia. Her chemotherapy was administered between September 2017 through December 2017. Her disease responded well and she went into a good remission and the patient functionally improved while on a holiday off chemotherapy. By May 2018 she has radiologic evidence of early relapse of the disease in the chest albeit still small volume and asymptomatic. 2- Developed malignancy induced hypercoagulability with bilateral pulmonary embolism November 2017, initially treated with Lovenox , now on oral savysa without bleeding complications. 3-anemia of cancer and chemotherapy , improved during holiday off chemotherapy 4-lower extremities edema, secondary to salt and fluid retention, improved as she stopped oral salt supplement and no recurrence of hyponatremia. 5-week of July 07, 2018 reports symptoms suggestive of an upper respiratory tract infection non-complicated probably viral and is not neutropenic but in view of ongoing chemotherapy advice oral Z-Ronni to prevent secondary infection. Recommendations: #1 With remission duration of less than 6 months , started June 02, 2018 second line therapy with a non-kipnuk single agent Taxol on the weekly schedule 3 weeks on then 1 week rest. Treatment well-tolerated without excessive toxicities (noted scalp hair loss and a mild anemia) will defer use of PDL 1 inhibitors for third line (consistent with FDA approval). #2 Long-term VTE secondary prophylaxis with anticoagulant. #3 Pros and cons of prophylactic cranial radiation for stage IV disease were discussed in a formal consultation was Dr. Cruz #4 Hyponatremia, resolved with no evidence for fluid retention will continue to hold sodium supplementation and watch sodium level. #5 Seizures secondary to hyponatremia no recurrences patient was weaned off anti-seizure medication by PCP was no recurrences. #6 occasional nosebleeds most likely multiple factors including anticoagulant therapy, dryness, and thrombocytopenia from systemic chemotherapy. Advised not to blow her nose hard or pick at it, humidifier in bedroom. #7 Z-Ronni for upper respiratory infection Seen was her impression and plan discussed and Their questions answered. Follow-up in 1 week Medications: Prescriptions This Visit Medication Instructions Recorded Lidocaine/Prilocaine 30 gm TP DAILY PRN PRN #1 cream..g. 10/07/17 [Lidocaine-Prilocaine Cream] Primary Care Provider: Andrés Helms MD Referring Provider: 07/14/18 0913 <Electronically signed by Gage Huggins MD> Date Gage Huggins MD Cosigner Signature: Date (if applicable) CC: CBC W/DIFF, AUTOMATED Collected: 07/14/2018 Status: F Source: [place] 8:25 AM [facility] REPOSITORY TYPE CODE TESTS RESULT OUT OF RANGE REFERENCE UNITS LAB L100.1000 4.4-11.0 K/mm3 Low WBC 3.9 LAB L100.1200 4.2-5.4 M/mm3 Low RBC 3.23 LAB L100.1300 12.0-15.0 g/dl Low HGB 10.5 LAB L100.1400 37-47 % Low HCT 31.4 LAB L100.1500 81-99 fL Normal MCV 97.2 LAB L100.1600 27.0-32.0 pg High MCH 32.5 LAB L100.1700 32-36 g/gl Normal MCHC 33.4 LAB L100.1810 11.6-14.6 % Normal RDW CV 13.9 LAB L100.1820 35.1-43.9 fl High RDW SD 48.3 LAB L100.1900 150-450 K/mm3 Normal PLT 296 LAB L100.2000 6.2-12.0 fl Normal MPV 8.6 LAB L100.2100 47-70 % Low NEUT% 42.5 LAB L100.2200 19-41 % Normal LY% 37.5 LAB L100.2300 0-10 % High MONO% 10.5 LAB L100.2400 0-5 % High EO% 8.7 LAB L100.2500 0-1 % Normal BASO% 0.5 LAB L100.2550 0.0-0.9 % Normal IM GRAN % 0.300 Result Comment: IG% - Immature Granulocytes (promyelocytes, myelocytes and metamyelocytes) > 1% indicates that a LEFT SHIFT is Present. LAB L100.2620 2.0-7.7 X10 3/uL Low Absolute Neut 1.7 LAB L100.2720 0.83-4.51 X10 3/ul Normal Absolute Lymph 1.47 Performed By: #### L100.0100 #### [facility] [address] [facility] [place], [address] ONCOLOGY VISIT REPORT Observed: 07/07/2018 Status: F Source: [place] 9:47 AM [facility] REPOSITORY [facility] [place] [address] OFFICE VISIT Date of Service: 07/07/18 0943 MR#: [id number] Acct: [id number] Name: WALI HALL Rep #: [id number] : 1960 From: Gage Huggins MD Age/Sex: 57/F Location: ONC Status: Signed - Problem List (1) Small cell lung cancer in adult Status: Chronic (2) Lung nodule, multiple Status: Chronic (3) Regional lymph node metastasis present Status: Chronic (4) Anemia Status: Chronic (5) Seizure disorder Status: Chronic - Date of Service Date of Service:: 07/07/18 - Chief Complaint Lung cancer on treatment - History of Present Illness Patient is a 57-year-old female smoker till the diagnosis of cancer was made who presented in late 2017 following a seizure and found to have a low sodium. Further workup in August 2017 included CAT scan of the chest, PET scan, and bone scan showed mediastinal and right hilar adenopathy, multiple bilateral lung nodules too small to further characterize on PET, questionable thoracic vertebral lesion (seen on CT but PET and bone scan did not suggest metastatic disease close). EBUS in September 2017 biopsy confirmed small cell lung cancer. Brain imaging did not show metastatic disease in the [employer]. Patient was initially seen by Dr. Moses and was prescribed cisplatin-irinotecan (received 2 cycles September - October 2017) for the goal of palliation plus or minus modest survival advantage for stage IV disease. She has tolerated this therapy with expected side effects and mostly troubled with GI toxicities. November 2017 she was hospitalized with bilateral pulmonary embolism and was started on Lovenox. Treatment: Cisplatin-irinotecan -10/2017 (2 cycles) excess toxicity (GI) MO Carboplatin- etoposide -12/2017 (2 CYCLES) v. good [place] Taxol, single agent June 02, 2018 - Interval History Has a head cold for the past 2 days, with same illness - Past Medical/Social History Past Medical History Other Past Medical History: [facility] R/T TO LUNG CA Cancer: Lung cancer Social History Social History: No changes Smoking Status Former smoker Review of Systems Constitutional:: Reports: - - Head cold, congestion. Denies: Fever, Sweats, Weight loss, Appetite change, Chills Cardiovascular:: Reports: Dyspnea on exertion. Denies: Chest pain, Palpitations, Orthopnea, PND, Shortness of breath Respiratory: Reports: Cough, Shortness of breath upon exertion, Sputum production - Clear. Denies: Hemoptysis, Shortness of Breath, Wheezing Gastrointestinal:: Denies: Abdominal pain, Nausea, Vomiting, Diarrhea, Constipation, Hematochezia Genitourinary: Denies: Dysuria, Hematuria, 15, Flank pain Musculoskeletal:: Denies: Back pain, Myalgia, Arthralgia Skin: Denies: Rash, Skin Changes, Wounds Neurological:: Denies: Headache, Dizziness, Visual changes, Tinnitus, Hearing loss Psychiatric: Denies: Anxiety, Depression, Homicidal Ideations, Suicidal Ideations Vital Signs Height 5 ft 5 in Weight: 77.655 kg Weight in Pounds 171.2 lbs BMI 26.5 Pulse Ox 99 - Physical Exam General: Alert, Oriented x3, No apparent distress, - - ECOG 1 HEENT: Atraumatic, PERRLA, EOMI, Normocephalic Oropharynx:: Dry mucosa Neck:: Supple, Trachea midline, - - Port okay. Negative for: JVD, bilateral Cardiac:: Regular rate, Regular rhythm, Normal S1, Normal S2. Negative for: Murmur Lungs: Clear to auscultation, Diminished, Excusion symmetrical. Negative for: Rhonchi, Wheezes Abdomen:: Soft, Non-tender, Non-distended. Negative for: Hepatosplenomegaly Extremities:: Negative for: Cyanosis, Edema Neurological: Neuro grossly intact Skin:: Negative for: Lesions, Rash, Petechiae, Ecchymosis Psychiatric:: Appropriate affect, Euthymic Lymphatics:: Axillary lymphadenopathy. Negative for: Cervical lymphadenopathy, Supraclavicular lymphadenopathy Laboratory Data: Laboratory Tests WBC 8.3 (4.4-11.0) K/mm3 RBC 3.30 L (4.2-5.4) M/mm3 Hgb 10.6 L (12.0-15.0) g/dl Assessment and Plan 57-year-old female smoker who presented with altered mental status, and seizures secondary to hyponatremia. Further workup revealed: 1- Small cell lung cancer metastatic to right hilar and mediastinal lymph nodes with indeterminate bilateral multiple pulmonary nodules (some nodules are calcified and consistent with granulomas, others are noncalcified and most likely represent metastatic disease). PDL 1 testing not done on September 2017 biopsy due to insufficient material. Clinically stage IV at presentation. She was initially treated under the care of Dr. Salazar with standard cisplatin Irenotecan and disease appears to have responded in the mediastinum and stable and the lungs after 2 cycles of therapy. However patient has had significant side effects impacting her quality of life (mainly metallic taste, diarrhea and fatigue) and therefore treatment was changed to carboplatin etoposide and she received further 2 cycles and disease remains stable. Toxicity from this line of therapy was mainly bone marrow and symptomatic anemia. Her chemotherapy was administered between September 2017 through December 2017. Her disease responded well and she went into a good remission and the patient functionally improved while on a holiday off chemotherapy. By May 2018 she has radiologic evidence of early relapse of the disease in the chest albeit still small volume and asymptomatic. 2- Developed malignancy induced hypercoagulability with bilateral pulmonary embolism November 2017, initially treated with Lovenox , now on oral savysa without bleeding complications. 3-anemia of cancer and chemotherapy , improved during holiday off chemotherapy 4-lower extremities edema, secondary to salt and fluid retention, improved as she stopped oral salt supplement and no recurrence of hyponatremia. 5-week of July 07, 2018 reports symptoms suggestive of an upper respiratory tract infection non-complicated probably viral and is not neutropenic but in view of ongoing chemotherapy advice oral Z-Ronni to prevent secondary infection. Recommendations: #1 With remission duration of less than 6 months , started June 02, 2018 second line therapy with a non-kipnuk single agent Taxol on the weekly schedule 3 weeks on then 1 week rest. Treatment well-tolerated without excessive toxicities (noted scalp hair loss and a mild anemia) will defer use of PDL 1 inhibitors for third line (consistent with FDA approval). #2 Long-term VTE secondary prophylaxis with anticoagulant. #3 Pros and cons of prophylactic cranial radiation for stage IV disease were discussed in a formal consultation was Dr. Cruz #4 Hyponatremia, resolved with no evidence for fluid retention will continue to hold sodium supplementation and watch sodium level. #5 Seizures secondary to hyponatremia no recurrences patient was weaned off anti-seizure medication by PCP was no recurrences. #6 occasional nosebleeds most likely multiple factors including anticoagulant therapy, dryness, and thrombocytopenia from systemic chemotherapy. Advised not to blow her nose hard or pick at it, humidifier in bedroom. #7 Z-Ronni for upper respiratory infection Seen was her impression and plan discussed and Their questions answered. Follow-up in 1 week Medications: Prescriptions This Visit Medication Instructions Recorded Lidocaine/Prilocaine 30 gm TP DAILY PRN PRN #1 cream..g. 10/07/17 [Lidocaine-Prilocaine Cream] Primary Care Provider: Andrés Helms MD Referring Provider: 07/07/18 0947 <Electronically signed by Gage Huggins MD> Date Gage Huggins MD Cosigner Signature: Date (if applicable) CC: CBC W/DIFF, AUTOMATED Collected: 07/07/2018 Status: F Source: [place] 8:21 AM [facility] REPOSITORY TYPE CODE TESTS RESULT OUT OF RANGE REFERENCE UNITS LAB L100.1000 4.4-11.0 K/mm3 Normal WBC 8.3 LAB L100.1200 4.2-5.4 M/mm3 Low RBC 3.30 LAB L100.1300 12.0-15.0 g/dl Low HGB 10.6 LAB L100.1400 37-47 % Low HCT 32.9 LAB L100.1500 81-99 fL High MCV 99.7 LAB L100.1600 27.0-32.0 pg High MCH 32.1 LAB L100.1700 32-36 g/gl Normal MCHC 32.2 LAB L100.1810 11.6-14.6 % Normal RDW CV 14.0 LAB L100.1820 35.1-43.9 fl High RDW SD 50.7 LAB L100.1900 150-450 K/mm3 Normal PLT 273 LAB L100.2000 6.2-12.0 fl Normal MPV 8.9 LAB L100.2100 47-70 % Normal NEUT% 61.4 LAB L100.2200 19-41 % Normal LY% 23.5 LAB L100.2300 0-10 % Normal MONO% 9.7 LAB L100.2400 0-5 % Normal EO% 4.1 LAB L100.2500 0-1 % Normal BASO% 0.6 LAB L100.2550 0.0-0.9 % Normal IM GRAN % 0.700 Result Comment: IG% - Immature Granulocytes (promyelocytes, myelocytes and metamyelocytes) > 1% indicates that a LEFT SHIFT is Present. LAB L100.2620 2.0-7.7 X10 3/uL Normal Absolute Neut 5.1 LAB L100.2720 0.83-4.51 X10 3/ul Normal Absolute Lymph 1.94 Performed By: #### L100.0100 #### [facility] [address] [place], [place] [address] [place]. [place], [place], [address] ONCOLOGY VISIT REPORT Observed: 06/30/2018 Status: F Source: [place] 10:14 AM [facility] REPOSITORY [facility] [place] [address] OFFICE VISIT Date of Service: 06/30/18 1010 MR#: [id number] Acct: [id number] Name: WALI HALL Rep #: [id number] : 1960 From: Gage Huggins MD Age/Sex: 57/F Location: OMD Status: Signed - Problem List (1) Small cell lung cancer in adult Status: Chronic (2) Lung nodule, multiple Status: Chronic (3) Regional lymph node metastasis present Status: Chronic (4) Anemia Status: Chronic (5) Seizure disorder Status: Chronic - Date of Service Date of Service:: 06/30/18 - Chief Complaint Lung cancer on treatment - History of Present Illness Patient is a 57-year-old female smoker till the diagnosis of cancer was made who presented in late 2017 following a seizure and found to have a low sodium. Further workup in August 2017 included CAT scan of the chest, PET scan, and bone scan showed mediastinal and right hilar adenopathy, multiple bilateral lung nodules too small to further characterize on PET, questionable thoracic vertebral lesion (seen on CT but PET and bone scan did not suggest metastatic disease close). EBUS in September 2017 biopsy confirmed small cell lung cancer. Brain imaging did not show metastatic disease in the [employer]. Patient was initially seen by Dr. Moses and was prescribed cisplatin-irinotecan (received 2 cycles September - October 2017) for the goal of palliation plus or minus modest survival advantage for stage IV disease. She has tolerated this therapy with expected side effects and mostly troubled with GI toxicities. November 2017 she was hospitalized with bilateral pulmonary embolism and was started on Lovenox. Treatment: Cisplatin-irinotecan -10/2017 (2 cycles) excess toxicity (GI) [place] Carboplatin- etoposide -12/2017 (2 CYCLES) v. 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 Denies: Fever, Sweats, Weight loss, Appetite change, Chills Cardiovascular:: Reports: Dyspnea on exertion. Denies: Chest pain, Palpitations, Orthopnea, PND, Shortness of breath Respiratory: Reports: Shortness of breath upon exertion. Denies: Cough, Hemoptysis, Shortness of Breath, Wheezing Gastrointestinal:: Denies: Abdominal pain, Nausea, Vomiting, Diarrhea, Constipation, Hematochezia Genitourinary: Denies: Dysuria, Hematuria, 15, Flank pain Musculoskeletal:: Denies: Back pain, Myalgia, Arthralgia Skin: Reports: - - Losing scalp hair. Denies: Rash, Skin Changes, Wounds Neurological:: Denies: Headache, Dizziness, Visual changes, Tinnitus, Hearing loss Psychiatric: Denies: Anxiety, Depression, Homicidal Ideations, Suicidal Ideations Vital Signs Height 5 ft 5 in Weight: 77.927 kg Weight in Pounds 171.8 lbs BMI 26.5 Pulse Ox 100 - Physical Exam General: Alert, Oriented x3, No apparent distress, - - ECOG 1 HEENT: Atraumatic, PERRLA, EOMI, Normocephalic Oropharynx:: Dry mucosa Neck:: Supple, Trachea midline, - - Port okay. Negative for: JVD, bilateral Cardiac:: Regular rate, Regular rhythm, Normal S1, Normal S2. Negative for: Murmur Lungs: Clear to auscultation, Diminished, Excusion symmetrical. Negative for: Rhonchi, Wheezes Abdomen:: Soft, Non-tender, Non-distended. Negative for: Hepatosplenomegaly Extremities:: Negative for: Cyanosis, Edema Neurological: Neuro grossly intact Skin:: Negative for: Lesions, Rash, Petechiae, Ecchymosis Psychiatric:: Appropriate affect, Euthymic Lymphatics:: Negative for: Cervical lymphadenopathy, Supraclavicular lymphadenopathy Laboratory Data: Laboratory Tests WBC 5.5 (4.4-11.0) K/mm3 RBC 3.47 L (4.2-5.4) M/mm3 Hgb 11.3 L (12.0-15.0) g/dl Assessment and Plan 57-year-old female smoker who presented with altered mental status, and seizures secondary to hyponatremia. Further workup revealed: 1- Small cell lung cancer metastatic to right hilar and mediastinal lymph nodes with indeterminate bilateral multiple pulmonary nodules (some nodules are calcified and consistent with granulomas, others are noncalcified and most likely represent metastatic disease). PDL 1 testing not done on September 2017 biopsy due to insufficient material. Clinically stage IV at presentation. She was initially treated under the care of Dr. Salazar with standard cisplatin Irenotecan and disease appears to have responded in the mediastinum and stable and the lungs after 2 cycles of therapy. However patient has had significant side effects impacting her quality of life (mainly metallic taste, diarrhea and fatigue) and therefore treatment was changed to carboplatin etoposide and she received further 2 cycles and disease remains stable. Toxicity from this line of therapy was mainly bone marrow and symptomatic anemia. Her chemotherapy was administered between September 2017 through December 2017. Her disease responded well and she went into a good remission and the patient functionally improved while on a holiday off chemotherapy. By May 2018 she has radiologic evidence of early relapse of the disease in the chest albeit still small volume and asymptomatic. 2- Developed malignancy induced hypercoagulability with bilateral pulmonary embolism November 2017, initially treated with Lovenox , now on oral savysa without bleeding complications. 3-anemia of cancer and chemotherapy , improved during holiday off chemotherapy 4-lower extremities edema, secondary to salt and fluid retention, improved as she stopped oral salt supplement and no recurrence of hyponatremia. Recommendations: #1 With remission duration of less than 6 months , started June 02, 2018 second line therapy with a non-kipnuk single agent Taxol on the weekly schedule 3 weeks on then 1 week rest. Treatment well-tolerated without excessive toxicities (noted scalp hair loss and a mild anemia) will defer use of PDL 1 inhibitors for third line (consistent with FDA approval). #2 Long-term VTE secondary prophylaxis with anticoagulant. #3 Pros and cons of prophylactic cranial radiation for stage IV disease were discussed in a formal consultation was Dr. Cruz #4 Hyponatremia, resolved with no evidence for fluid retention will continue to hold sodium supplementation and watch sodium level. #5 Seizures secondary to hyponatremia no recurrences patient was weaned off anti-seizure medication by PCP was no recurrences. #6 occasional nosebleeds most likely multiple factors including anticoagulant therapy, dryness, and thrombocytopenia from systemic chemotherapy. Advised not to blow her nose hard or pick at it, humidifier in bedroom. Seen was her impression and plan discussed and Their questions answered. Follow-up in 1 week Medications: Prescriptions This Visit Medication Instructions Recorded Lidocaine/Prilocaine 30 gm TP DAILY PRN PRN #1 cream..g. 10/07/17 Primary Care Provider: Andrés Helms MD Referring Provider: 06/30/18 1014 <Electronically signed by Gage Huggins MD> Date Gage Joseluis GONZALEZ Cosigner Signature: Date (if applicable) CC: CBC W/DIFF, AUTOMATED Collected: 06/30/2018 Status: F Source: [place] 9:15 AM [facility] REPOSITORY TYPE CODE TESTS RESULT OUT OF RANGE REFERENCE UNITS LAB L100.1000 4.4-11.0 K/mm3 Normal WBC 5.5 LAB L100.1200 4.2-5.4 M/mm3 Low RBC 3.47 LAB L100.1300 12.0-15.0 g/dl Low HGB 11.3 LAB L100.1400 37-47 % Low HCT 34.7 LAB L100.1500 81-99 fL High MCV 100.0 LAB L100.1600 27.0-32.0 pg High MCH 32.6 LAB L100.1700 32-36 g/gl Normal MCHC 32.6 LAB L100.1810 11.6-14.6 % Normal RDW CV 14.3 LAB L100.1820 35.1-43.9 fl High RDW SD 51.4 LAB L100.1900 150-450 K/mm3 Normal PLT 302 LAB L100.2000 6.2-12.0 fl Normal MPV 8.7 LAB L100.2100 47-70 % Low NEUT% 46.8 LAB L100.2200 19-41 % Normal LY% 36.5 LAB L100.2300 0-10 % High MONO% 11.2 LAB L100.2400 0-5 % Normal EO% 4.2 LAB L100.2500 0-1 % Normal BASO% 0.9 LAB L100.2550 0.0-0.9 % Normal IM GRAN % 0.400 Result Comment: IG% - Immature Granulocytes (promyelocytes, myelocytes and metamyelocytes) > 1% indicates that a LEFT SHIFT is Present. LAB L100.2620 2.0-7.7 X10 3/uL Normal Absolute Neut 2.6 LAB L100.2720 0.83-4.51 X10 3/ul Normal Absolute Lymph 2.02 Performed By: #### L100.0100 #### [facility] [address] [place], [address] COMPREHENSIVE METABOLIC Collected: 06/30/2018 Status: F Source: [place] [facility] 9:15 AM [facility] REPOSITORY TYPE CODE TESTS RESULT OUT OF RANGE REFERENCE UNITS LAB L501.0100 74-106 mg/dL Normal GLU 87 Result Comment: Please note revised GLUCOSE reference range effective 2017. LAB L501.1000 7-18 mg/dL High BUN 19 LAB L501.1100 0.55-1.02 mg/dL Normal CREAT,SERUM 0.90 Result Comment: The validity of the calculated GFR AND GFRAA in patients over 70 years has not been determined. Clinical correlation is essential. LAB L501.1110 >60 mL/min Normal EST GFR 68 Result Comment: Non- GFR Calc LAB L501.1115 >60 mL/min Normal EST GFR - AA 83 Result Comment: GFR Calc LAB L501.1255 ml/min Normal Estimated CRCL 60.56 LAB L501.1300 10-20 RATIO High BUN/CRE 21.2 LAB L501.1500 6.4-8. g/dL Normal 2 T PROT 7.1 LAB L501.1800 3.2-5. g/dL Normal 0 ALB 3.4 LAB L501.1950 2.2-4. g/dL Normal 2 GLOB 3.7 LAB L501.2000 0.9-2. RATIO Normal 4 A/G 0.9 LAB L501.2200 8.5-10 mg/dL Normal .1 CA 8.7 LAB L501.4100 15-37 U/L Normal AST 16 LAB L501.4305 45-117 U/L Normal ALK P 85 LAB L501.4405 13-56 U/L Normal ALT 21 LAB L501.4600 0.20-1 mg/dL Normal .00 T BILI 0.30 LAB L501.5300 136-14 mmol/L Normal 5 NA 139 LAB L501.5600 3.5-5. mmol/L Normal 1 K 4.1 LAB L501.5900 98-107 mmol/L Normal CL 104 LAB L501.6100 21.0-3 mmol/L Normal 2.0 CO2 26.0 LAB L501.6200 5-15 Normal GAP 9 Performed By: #### L500.4050 #### [facility] [address] [place], [address] INTERNAL MEDICINE Observed: 06/23/2018 Status: F Source: [place] OFFICE VISIT 1:04 PM [facility] REPOSITORY [facility] [address] [place] [address] [place] [address] OFFICE VISIT Date of Service: 06/23/18 MR#: [id number] Acct: [id number] Name: WALI HALL Rep #: [id number] : 1960 Provider: Andrés Helms MD Age/Sex: 57/F Location: [facility] Status: Signed Intake Vital Signs06/23/18 Height 5 ft 5 in Intake Visit Reasons: 3 mo f/u Chief Complaint: three month follow-up Is patient in pain?: No Allergies No Known Allergies Allergy (Verified 06/16/18 08:55) Medications Lidocaine/Prilocaine [Lidocaine-Prilocaine Cream] 30 gm TP DAILY PRN PRN #1 cream..g. 10/07/17 [Rx Confirmed 06/16/18] Handicap Placards #1 ea 12/20/17 [Rx Confirmed 12/20/17] Mirtazapine [Remeron] 15 mg PO QHS PRN 04/14/18 [History Confirmed 06/16/18] Edoxaban Tosylate [Savaysa] 60 mg PO DAILY #30 tab 04/24/18 [Rx Confirmed 06/16/18] famotidine 20 mg tablet 20 mg PO DAILY 06/23/18 [History Confirmed 06/23/18] Post menopausal: Yes PFSH Medical History Blood clot in vein (Acute) Small cell lung cancer in adult (Chronic) Seizure disorder (Chronic) Tobacco dependence in remission (Chronic) Hyponatremia (Resolved) Surgical History H/O breast augmentation (Acute) History of carpal tunnel release (Acute) History of tubal ligation (Acute) hammer toe repair (Acute) med port placement (Acute) Family History Mother Breast cancer Father Cancer brain and lung Sister Aneurysm Social History Smoking Status: Former smoker quit date: 08/10/17 pack-years: 80 how long ago did patient quit smokin alcohol intake: current alcohol intake frequency: a few times a month what type of physical activity do you participate in: none HPI HPI Chief Complaint: three month follow-up Details: WALI HALL, is a 57yo F who presents to the office today for follow-up. Currently undergoing chemotherapy for stage IV small cell lung cancer. She has had no concerns so far. No more seizure episodes and hyponatremia has resolved. ROS Const Constitutional: No weight change, body ache, chills, fatigue, sleep problems, fever(s), change in appetite, snoring, weakness, frequent falls, headache(s) or excessive sweating Eyes Eyes: No change in vision, eye pain, light sensitivity or blurry vision ENT ENT: No headache(s), abnormal hearing, ear pain, tinnitus, nasal congestion, sore throat or neck pain Resp Respiratory: No snoring, cough, shortness of breath or wheezing Cardio Cardiology: No excessive sweating, chest pain at rest, chest pain with exertion, shortness of breath, dyspnea on exertion, palpitations, orthopnea or lightheadedness Gastro GI: No abdominal pain, change in bowel habits, constipation, diarrhea, vomiting, nausea/dyspepsia or cramping Genitourinary-Female: No burning urination, painful urination, urinary incontinence, urinary frequency, abnormal vaginal bleeding, pelvic pain or other Musc Musculoskeletal: No neck pain, abnormal walking, joint pain, back pain, limited range of motion, numbness, tingling or muscle weakness Skin Skin: No redness, dry skin, itching, lesions, wounds or rash Neuro Neurology: No weakness, frequent falls, headache(s), abnormal hearing, abnormal walking, numbness, tingling, abnormal speech, dizziness or memory loss Psych Psychiatric: No change in appetite, No memory loss, No anxiety, No depression, No Thoughts of harming yourself/Others Endo Endocrine: No fatigue, excessive sweating, cold intolerance, increased thirst/drinking, heat intolerance, flushing or increased hunger Aller/Imm Allergy/Immunologic: No wheezing, itchy eyes, hives or seasonal allergy symptoms Patrice/Lymp Hematologic/Lymphatic: No easy bleeding, easy bruising or enlarged lymph nodes Exam Const General: cooperative, no acute distress Orientation: alert, awake, oriented x3 HENMT Head: atraumatic, normocephalic Ears: hearing grossly normal bilaterally Resp Effort AND Inspection: normal respiratory effort, able to speak in complete sentences Auscultation: Bilateral: Clear to Auscultation Cardio Rate: regular rate Rhythm: regular rhythm Heart Sounds: S1 normal, S2 normal GI Palpation: soft, no hepatosplenomegaly Musc Musculoskeletal: No muscle weakness Neuro General: alert, awake, oriented x3, moves all extremities, CN's II-XI intact bilaterally Extrem General: no clubbing, cyanosis or edema Psych Appearance: grossly normal Mood: congruent mood Affect: normal affect Assessment AND Plan 1. Small cell lung cancer in adult C34.90 Plan Currently undergoing another course of chemotherapy. No problems so far. Continue current management as per oncology. Continue with Mirtazapine for depression/anorexia and sleep. 2. Hyponatremia E87.1 Plan Resolved. Last serum sodium of 136. 3. Seizure disorder G40.909 Plan No further episodes since chemotherapy. Has done well without Keppra. Will monitor. This note was generated with [employer]ters[employer] software. It may contain incorrect words, spelling, and punctuation that were not noted in checking the note before signing. Coding Level of Care Code Off vis,est,level 3 Diagnoses Small cell lung cancer in adult C34.90 Hyponatremia E87.1 Seizure disorder G40.909 06/23/18 1304 <Electronically signed by Andrés Helms MD> Date Andrés Helms MD Cosigner Signature: Date (if applicable) CC: ONCOLOGY VISIT REPORT Observed: 06/16/2018 Status: F Source: [place] 11:21 AM [facility] REPOSITORY [facility] [address] [place], [place] [address] [address] OFFICE VISIT Date of Service: 10/821 MR#: [id number] Acct: [id number] Name: WALI HALL Rep #: [id number] : 1960 From: Asmita GUILLEN Age/Sex: 57/F Location: [facility]C Status: Signed Subjective - Date of Service Date of Service:: 06/16/18 - Chief Complaint Lung cancer on treatment - History of Present Illness Patient is a 57-year-old female smoker till the diagnosis of cancer was made who presented in late 2017 following a seizure and found to have a low sodium. Further workup in August 2017 included CAT scan of the chest, PET scan, and bone scan showed mediastinal and right hilar adenopathy, multiple bilateral lung nodules too small to further characterize on PET, questionable thoracic vertebral lesion (seen on CT but PET and bone scan did not suggest metastatic disease close). EBUS in September 2017 biopsy confirmed small cell lung cancer. Brain imaging did not show metastatic disease in the [employer]. Patient was initially seen by Dr. Moses and was prescribed cisplatin-irinotecan (received 2 cycles September - October 2017) for the goal of palliation plus or minus modest survival advantage for stage IV disease. She has tolerated this therapy with expected side effects and mostly troubled with GI toxicities. November 2017 she was hospitalized with bilateral pulmonary embolism and was started on Lovenox. Treatment: Cisplatin-irinotecan -10/2017 (2 cycles) excess toxicity (GI) MO Carboplatin- etoposide -12/2017 (2 CYCLES) v. good MO Taxol, single agent June 02, 2018 - Interval History The patient is presenting to clinic accompanied by spouse for an evaluation anticipating she will receive cycle 1 day 15 Taxol. Concerns today include worsening depression associated with sleep disturbance and tearfulness, heartburn and constipation. States she had been off Remeron for several months and upon restarting chemo 2 weeks ago began taking 15 mg at HS again. Denies any thoughts of self harm. Describes being easily tearful and having a difficult time falling asleep, although she then able to stay asleep. LBM 06/15/18, on stool softener with minimal relief. No abd pain/cramping. Reports heartburn occurs primarily at HS, taking Pepcid on prn basis. Describes appetite as good, PO fluid intake as likely adequate. Specifically denies headache, dizziness, CP, dyspnea, N/V, numbness/tingling and any episodes of overt bleeding/abnormal bruising. 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 Denies: Fever, Sweats, Weight loss, Appetite change, Chills Cardiovascular:: Denies: Chest pain, Palpitations, Dyspnea on exertion, Orthopnea, PND, Shortness of breath Respiratory: Denies: Cough, Hemoptysis, Shortness of Breath, Wheezing Gastrointestinal:: Reports: Constipation - see HPI. Denies: Abdominal pain, Nausea, Vomiting, Diarrhea, Hematochezia Genitourinary: Denies: Dysuria, Hematuria, Urinary frequency, Flank pain Musculoskeletal:: Denies: Back pain, Myalgia, Arthralgia Skin: Denies: Rash, Skin Changes, Wounds Neurological:: Denies: Headache, Dizziness, Numbness, Tingling, Visual changes, Tinnitus, Hearing loss Psychiatric: Denies: Anxiety, Depression, Homicidal Ideations, Suicidal Ideations Vital Signs Height 5 ft 5 in - Physical Exam General: Alert, Oriented x3, No apparent distress HEENT: Atraumatic, Normocephalic Oropharynx:: Negative for: Dry mucosa, Ulcerated lesions Neck:: Supple, Trachea midline. Negative for: JVD, bilateral Cardiac:: Regular rate, Regular rhythm, Normal S1, Normal S2. Negative for: Murmur Lungs: Diminished, Excusion symmetrical. Negative for: Rhonchi, Wheezes, Tachypneic, Increased respiratory effort Abdomen:: Bowel sounds x 4, Soft, Non-tender, Non-distended. Negative for: Hepatosplenomegaly Extremities:: Negative for: Cyanosis, Edema, Calf tenderness Neurological: Neuro grossly intact Skin:: Negative for: Lesions, Rash, Petechiae, Ecchymosis Psychiatric:: Appropriate affect, Euthymic Lymphatics:: Negative for: Cervical lymphadenopathy, Supraclavicular lymphadenopathy, Axillary lymphadenopathy Assessment and Plan 57-year-old female smoker who presented with altered mental status, and seizures secondary to hyponatremia. Further workup revealed: 1- Small cell lung cancer metastatic to right hilar and mediastinal lymph nodes with indeterminate bilateral multiple pulmonary nodules (some nodules are calcified and consistent with granulomas, others are noncalcified and most likely represent metastatic disease). PDL 1 testing not done on September 2017 biopsy due to insufficient material. Clinically stage IV at presentation. She was initially treated under the care of Dr. Salazar with standard cisplatin Irinotecan and disease appears to have responded in the mediastinum and stable and the lungs after 2 cycles of therapy. However patient has had significant side effects impacting her quality of life (mainly metallic taste, diarrhea and fatigue) and therefore treatment was changed to carboplatin etoposide and she received further 2 cycles and disease remains stable. Toxicity from this line of therapy was mainly bone marrow and symptomatic anemia. Her chemotherapy was administered between September 2017 through December 2017. Her disease responded well and she went into a good remission and the patient functionally improved while on a holiday off chemotherapy. By May 2018 she has radiologic evidence of early relapse of the disease in the chest albeit still small volume and asymptomatic. 2- Developed malignancy induced hypercoagulability with bilateral pulmonary embolism November 2017, initially treated with Lovenox, now on oral Savysa. 3-anemia of cancer and chemotherapy , improved during holiday off chemotherapy 4-lower extremities edema, secondary to salt and fluid retention, improved as she stopped oral salt supplement and no recurrence of hyponatremia. Recommendations: #1 With remission duration of less than 6 months, started June 02, 2018 second line therapy with a non-kipnuk single agent Taxol on the weekly schedule 3 weeks on then 1 week rest. Relapsed disease is subcentimeter and would be quite difficult to attempt a CT-guided biopsy without excessive risks. Will defer use of PDL 1 inhibitors for third line (consistent with FDA approval). Tolerating fair with the exception of heartburn and constipation. Advised her to use Pepcid daily and remain upright after meals. May use Miralax prn in addition to stool softener. CBC reviewed and values are within acceptable parameters for treatment. She is not endorsing any s/sx of toxicity contraindicating chemotherapy today, thus will proceed with planned cycle 1 day15 Taxol. #2 Long-term VTE secondary prophylaxis with anticoagulant- Tolerating Savysa well without any c/o bleeding/bruising. #3 Pros and cons of prophylactic cranial radiation for stage IV disease were discussed in a formal consultation with Dr. Cruz #4 Depression- Had been taking Remeron 15 mg QHS with an interuption of therapy x several months. Restarted Remeron approx 2 weeks ago. Endorsing increased emotional liability and tearfulness. Specifically denies thoughts of harming self or others. Advised to her to continue Remeron can take > 2 weeks to note a therapeutic benefit. If no improvement, can discuss increasing to 30 mg at HS. #5 Seizures secondary to hyponatremia no recurrences patient was weaned off anti-seizure medication by PCP was no recurrences- Na has been WNL since summer. RTO in 2 weeks for consideration of cycle 2 day 1 Taxol, sooner if issues arise. Asmita Sommers, MSN, CHIEF STRATEGY OFFICER-C, AOCNP Medications: Prescriptions This Visit Medication Instructions Recorded Lidocaine/Prilocaine 30 gm TP DAILY PRN PRN #1 cream..g. 10/07/17 Medications Added to Medication List This Visit 0.9% Normal [facility] 06/16/18 00:00 Active Primary Care Provider: Andrés Helms MD Referring Provider: - Problem List (1) Small cell lung cancer in adult Status: Chronic (2) Adjustment disorder Status: Chronic Qualifiers: Adjustment disorder type: with depressed mood Qualified Code(s): F43.21 - Adjustment disorder with depressed mood (3) Chemotherapy management, encounter for Status: Chronic (4) Constipation Status: Acute Qualifiers: Constipation type: other constipation type Qualified Code(s): K59.09 - Other constipation (5) Heartburn symptom Status: Acute 06/16/18 1121 <Electronically signed by Asmita GUILLEN> Date Asmita GUILLEN Cosigner Signature: Date (if applicable) CC: CBC W/DIFF, AUTOMATED Collected: 06/16/2018 Status: F Source: [place] 8:25 AM [facility] REPOSITORY TYPE CODE TESTS RESULT OUT OF RANGE REFERENCE UNITS LAB L100.1000 4.4-11.0 K/mm3 Low WBC 4.3 LAB L100.1200 4.2-5.4 M/mm3 Low RBC 3.41 LAB L100.1300 12.0-15.0 g/dl Low HGB 11.0 LAB L100.1400 37-47 % Low HCT 34.1 LAB L100.1500 81-99 fL High MCV 100.0 LAB L100.1600 27.0-32.0 pg High MCH 32.3 LAB L100.1700 32-36 g/gl Normal MCHC 32.3 LAB L100.1810 11.6-14.6 % Normal RDW CV 14.6 LAB L100.1820 35.1-43.9 fl High RDW SD 52.3 LAB L100.1900 150-450 K/mm3 Normal PLT 289 LAB L100.2000 6.2-12.0 fl Normal MPV 9.1 LAB L100.2100 47-70 % Normal NEUT% 47.7 LAB L100.2200 19-41 % Normal LY% 35.2 LAB L100.2300 0-10 % Normal MONO% 8.5 LAB L100.2400 0-5 % High EO% 7.5 LAB L100.2500 0-1 % Normal BASO% 0.9 LAB L100.2550 0.0-0.9 % Normal IM GRAN % 0.200 Result Comment: IG% - Immature Granulocytes (promyelocytes, myelocytes and metamyelocytes) > 1% indicates that a LEFT SHIFT is Present. LAB L100.2620 2.0-7.7 X10 3/uL Normal Absolute Neut 2.0 LAB L100.2720 0.83-4.51 X10 3/ul Normal Absolute Lymph 1.50 Performed By: #### L100.0100 #### [facility] [place], [address] ONCOLOGY VISIT REPORT Observed: 06/09/2018 Status: F Source: [place] 9:10 AM [facility] REPOSITORY [facility] [address] [place] [address]. [place] [address] OFFICE VISIT Date of Service: 06/09/18 0900 MR#: [id number] Acct: [id number] Name: WALI HALL Rep #: [id number] : 1960 From: Gage Huggins MD Age/Sex: 57/F Location: [facility]MD Status: Signed - Problem List (1) Small cell lung cancer in adult Status: Chronic (2) Lung nodule, multiple Status: Chronic (3) Regional lymph node metastasis present Status: Chronic (4) Anemia Status: Chronic (5) Seizure disorder Status: Chronic - Date of Service Date of Service:: 06/09/18 - Chief Complaint Lung cancer on treatment - History of Present Illness Patient is a 57-year-old female smoker till the diagnosis of cancer was made who presented in late 2017 following a seizure and found to have a low sodium. Further workup in August 2017 included CAT scan of the chest, PET scan, and bone scan showed mediastinal and right hilar adenopathy, multiple bilateral lung nodules too small to further characterize on PET, questionable thoracic vertebral lesion (seen on CT but PET and bone scan did not suggest metastatic disease close). EBUS in September 2017 biopsy confirmed small cell lung cancer. Brain imaging did not show metastatic disease in the [employer]. Patient was initially seen by Dr. Moses and was prescribed cisplatin-irinotecan (received 2 cycles September - October 2017) for the goal of palliation plus or minus modest survival advantage for stage IV disease. She has tolerated this therapy with expected side effects and mostly troubled with GI toxicities. November 2017 she was hospitalized with bilateral pulmonary embolism and was started on Lovenox. Treatment: Cisplatin-irinotecan -10/2017 (2 cycles) excess toxicity (GI) MO Carboplatin- etoposide -12/2017 (2 CYCLES) v. good MO Taxol, single agent June 02, 2018 - Past Medical/Social History Past Medical History Other Past Medical History: [facility] R/T TO LUNG CA Cancer: Lung cancer Social History Social History: No changes Smoking Status Former smoker Review of Systems Constitutional:: Reports: Fatigue - More this week, still able to do ADL independently. Denies: Fever, Sweats, Weight loss, Appetite change, Chills Cardiovascular:: Denies: Chest pain, Palpitations, Dyspnea on exertion, Orthopnea, PND, Shortness of breath Respiratory: Denies: Cough, Hemoptysis, Shortness of Breath, Wheezing Gastrointestinal:: Reports: Constipation, Reflux - Uses Pepcid as needed. Denies: Abdominal pain, Nausea, Vomiting, Diarrhea, Hematochezia Genitourinary: Denies: Dysuria, Hematuria, 15, Flank pain Musculoskeletal:: Denies: Back pain, Myalgia, Arthralgia Skin: Denies: Rash, Skin Changes, Wounds Neurological:: Denies: Headache, Dizziness, Visual changes, Tinnitus, Hearing loss Psychiatric: Denies: Anxiety, Depression, Homicidal Ideations, Suicidal Ideations Vital Signs Height 5 ft 5 in Weight: 77.201 kg Weight in Pounds 170.2 lbs BMI 26.5 Pulse Ox 100 - Physical Exam General: Alert, Oriented x3, No apparent distress, - - ECOG 1 HEENT: Atraumatic, PERRLA, EOMI, Normocephalic Oropharynx:: Dry mucosa Neck:: Supple, Trachea midline, - - ECOG 1 port okay. Negative for: JVD, bilateral Cardiac:: Regular rate, Regular rhythm, Normal S1, Normal S2. Negative for: Murmur Lungs: Clear to auscultation, Diminished, Excusion symmetrical. Negative for: Rhonchi, Wheezes Abdomen:: Soft, Non-tender, Non-distended. Negative for: Hepatosplenomegaly Extremities:: Negative for: Cyanosis, Edema Neurological: Neuro grossly intact Skin:: Negative for: Lesions, Rash, Petechiae, Ecchymosis Psychiatric:: Appropriate affect, Euthymic Lymphatics:: Negative for: Cervical lymphadenopathy, Supraclavicular lymphadenopathy Laboratory Data: Laboratory Tests WBC 5.2 (4.4-11.0) K/mm3 RBC 3.40 L (4.2-5.4) M/mm3 Hgb 10.9 L (12.0-15.0) g/dl Assessment and Plan 57-year-old female smoker who presented with altered mental status, and seizures secondary to hyponatremia. Further workup revealed: 1- Small cell lung cancer metastatic to right hilar and mediastinal lymph nodes with indeterminate bilateral multiple pulmonary nodules (some nodules are calcified and consistent with granulomas, others are noncalcified and most likely represent metastatic disease). PDL 1 testing not done on September 2017 biopsy due to insufficient material. Clinically stage IV at presentation. She was initially treated under the care of Dr. Salazar with standard cisplatin Irenotecan and disease appears to have responded in the mediastinum and stable and the lungs after 2 cycles of therapy. However patient has had significant side effects impacting her quality of life (mainly metallic taste, diarrhea and fatigue) and therefore treatment was changed to carboplatin etoposide and she received further 2 cycles and disease remains stable. Toxicity from this line of therapy was mainly bone marrow and symptomatic anemia. Her chemotherapy was administered between September 2017 through December 2017. Her disease responded well and she went into a good remission and the patient functionally improved while on a holiday off chemotherapy. By May 2018 she has radiologic evidence of early relapse of the disease in the chest albeit still small volume and asymptomatic. 2- Developed malignancy induced hypercoagulability with bilateral pulmonary embolism November 2017, initially treated with Lovenox , now on oral savysa without bleeding complications. 3-anemia of cancer and chemotherapy , improved during holiday off chemotherapy 4-lower extremities edema, secondary to salt and fluid retention, improved as she stopped oral salt supplement and no recurrence of hyponatremia. Recommendations: #1 With remission duration of less than 6 months , started June 02, 2018 second line therapy with a non-kipnuk single agent Taxol on the weekly schedule 3 weeks on then 1 week rest. Relapsed disease is subcentimeter and would be quite difficult to attempt a CT-guided biopsy without excessive risks. Will defer use of PDL 1 inhibitors for third line (consistent with FDA approval). #2 Long-term VTE secondary prophylaxis with anticoagulant. #3 Pros and cons of prophylactic cranial radiation for stage IV disease were discussed in a formal consultation was Dr. Cruz #4 Hyponatremia, resolved with no evidence for fluid retention will continue to hold sodium supplementation and watch sodium level. #5 Seizures secondary to hyponatremia no recurrences patient was weaned off anti-seizure medication by PCP was no recurrences. Seen was her impression and plan discussed and Their questions answered. Follow-up in 1 week Medications: Prescriptions This Visit Medication Instructions Recorded Lidocaine/Prilocaine 30 gm TP DAILY PRN PRN #1 cream..g. 10/07/17 Primary Care Provider: Andrés Helms MD Referring Provider: 06/09/18 0910 <Electronically signed by Gage Huggins MD> Date Gage Huggins MD Cosigner Signature: Date (if applicable) CC: CBC W/DIFF, AUTOMATED Collected: 06/09/2018 Status: F Source: [place] 8:32 AM [facility] REPOSITORY TYPE CODE TESTS RESULT OUT OF RANGE REFERENCE UNITS LAB L100.1000 4.4-11.0 K/mm3 Normal WBC 5.2 LAB L100.1200 4.2-5.4 M/mm3 Low RBC 3.40 LAB L100.1300 12.0-15.0 g/dl Low HGB 10.9 LAB L100.1400 37-47 % Low HCT 33.5 LAB L100.1500 81-99 fL Normal MCV 98.5 LAB L100.1600 27.0-32.0 pg High MCH 32.1 LAB L100.1700 32-36 g/gl Normal MCHC 32.5 LAB L100.1810 11.6-14.6 % Normal RDW CV 14.4 LAB L100.1820 35.1-43.9 fl High RDW SD 52.0 LAB L100.1900 150-450 K/mm3 Normal PLT 250 LAB L100.2000 6.2-12.0 fl Normal MPV 8.7 LAB L100.2100 47-70 % Normal NEUT% 51.0 LAB L100.2200 19-41 % Normal LY% 33.4 LAB L100.2300 0-10 % Normal MONO% 7.4 LAB L100.2400 0-5 % High EO% 7.0 LAB L100.2500 0-1 % Normal BASO% 0.6 LAB L100.2550 0.0-0.9 % Normal IM GRAN % 0.600 Result Comment: IG% - Immature Granulocytes (promyelocytes, myelocytes and metamyelocytes) > 1% indicates that a LEFT SHIFT is Present. LAB L100.2620 2.0-7.7 X10 3/uL Normal Absolute Neut 2.6 LAB L100.2720 0.83-4.51 X10 3/ul Normal Absolute Lymph 1.72 Performed By: #### L100.0100 #### [facility] [address] [place], [place], [address] ONCOLOGY VISIT REPORT Observed: 06/02/2018 Status: F Source: [place] 10:45 AM [facility] REPOSITORY [facility] [address] [place] [address] OFFICE VISIT Date of Service: 06/02/18 1015 MR#: [id number] Acct: [id number] Name: WALI HALL Rep #: [id number] : 1960 From: Gage Huggins MD Age/Sex: 57/F Location: [facility] Status: Signed - Problem List (1) Small cell lung cancer in adult Status: Chronic (2) Seizure disorder Status: Chronic (3) Hyponatremia Status: Chronic (4) Lung nodule, multiple Status: Chronic (5) Regional lymph node metastasis present Status: Chronic (6) Anemia Status: Chronic - Date of Service Date of Service:: 06/02/18 - Chief Complaint Lung cancer, recurrent - History of Present Illness Patient is a 57-year-old female smoker till the diagnosis of cancer was made who presented in late 2017 following a seizure and found to have a low sodium. Further workup in August 2017 included CAT scan of the chest, PET scan, and bone scan showed mediastinal and right hilar adenopathy, multiple bilateral lung nodules too small to further characterize on PET, questionable thoracic vertebral lesion (seen on CT but PET and bone scan did not suggest metastatic disease close). EBUS in September 2017 biopsy confirmed small cell lung cancer. Brain imaging did not show metastatic disease in the [employer]. Patient was initially seen by Dr. Moses and was prescribed cisplatin-irinotecan (received 2 cycles September - October 2017) for the goal of palliation plus or minus modest survival advantage for stage IV disease. She has tolerated this therapy with expected side effects and mostly troubled with GI toxicities. November 2017 she was hospitalized with bilateral pulmonary embolism and was started on Lovenox. Treatment: Cisplatin-irinotecan 2-10/2017 (2 cycles) excess toxicity (GI) MO Carboplatin- etoposide -12/2017 (2 CYCLES) v. good [place] Taxol, single agent June 02, 2018 - Past Medical/Social History Past Medical History Other Past Medical History: [facility] R/T TO LUNG CA Cancer: Lung cancer Social History Social History: No changes Smoking Status Former smoker Review of Systems Constitutional:: Denies: Fever, Sweats, Weight loss, Appetite change, Chills Cardiovascular:: Reports: Dyspnea on exertion. Denies: Chest pain, Palpitations, Orthopnea, PND, Shortness of breath Respiratory: Reports: Shortness of breath upon exertion. Denies: Cough, Hemoptysis, Shortness of Breath, Wheezing Gastrointestinal:: Denies: Abdominal pain, Nausea, Vomiting, Diarrhea, Constipation, Hematochezia Genitourinary: Denies: Dysuria, Hematuria, 15, Flank pain Musculoskeletal:: Denies: Back pain, Myalgia, Arthralgia Skin: Denies: Rash, Skin Changes, Wounds Neurological:: Reports: Memory loss, - - Off antiseizure medications and sodium restriction. Denies: Headache, Dizziness, Visual changes, Tinnitus, Hearing loss Psychiatric: Denies: Anxiety, Depression, Homicidal Ideations, Suicidal Ideations Vital Signs Height 5 ft 5 in Weight: 77.201 kg Weight in Pounds 170.2 lbs BMI 26.5 Pulse Ox 100 - Physical Exam General: Alert, Oriented x3, No apparent distress, - - ECOG 1 HEENT: Atraumatic, PERRLA, EOMI, Normocephalic Oropharynx:: Dry mucosa Neck:: Supple, Trachea midline, - - Port okay. Negative for: JVD, bilateral Cardiac:: Regular rate, Regular rhythm, Normal S1, Normal S2. Negative for: Murmur Lungs: Clear to auscultation, Diminished, Excusion symmetrical. Negative for: Rhonchi, Wheezes Abdomen:: Soft, Non-tender, Non-distended. Negative for: Hepatosplenomegaly Extremities:: Negative for: Cyanosis, Edema Neurological: Neuro grossly intact Skin:: Negative for: Lesions, Rash, Petechiae, Ecchymosis Psychiatric:: Appropriate affect, Euthymic Lymphatics:: Negative for: Cervical lymphadenopathy, Supraclavicular lymphadenopathy Laboratory Data: Laboratory Tests WBC 7.6 (4.4-11.0) K/mm3 RBC 3.59 L (4.2-5.4) M/mm3 Hgb 11.6 L (12.0-15.0) g/dl Assessment and Plan 57-year-old female smoker who presented with altered mental status, and seizures secondary to hyponatremia. Further workup revealed: 1- Small cell lung cancer metastatic to right hilar and mediastinal lymph nodes with indeterminate bilateral multiple pulmonary nodules (some nodules are calcified and consistent with granulomas, others are noncalcified and most likely represent metastatic disease). PDL 1 testing not done on September 2017 biopsy due to insufficient material. Clinically stage IV at presentation. She was initially treated under the care of Dr. Salazar with standard cisplatin Irenotecan and disease appears to have responded in the mediastinum and stable and the lungs after 2 cycles of therapy. However patient has had significant side effects impacting her quality of life (mainly metallic taste, diarrhea and fatigue) and therefore treatment was changed to carboplatin etoposide and she received further 2 cycles and disease remains stable. Toxicity from this line of therapy was mainly bone marrow and symptomatic anemia. Her chemotherapy was administered between September 2017 through December 2017. Her disease responded well and she went into a good remission and the patient functionally improved while on a holiday off chemotherapy. By May 2018 she has radiologic evidence of early relapse of the disease in the chest albeit still small volume and asymptomatic. 2- Developed malignancy induced hypercoagulability with bilateral pulmonary embolism November 2017, initially treated with Lovenox , now on oral savysa without bleeding complications. 3-anemia of cancer and chemotherapy , improved during holiday off chemotherapy 4-lower extremities edema, secondary to salt and fluid retention, improved as she stopped oral salt supplement and no recurrence of hyponatremia. Recommendations: #1 With remission duration of less than 6 months we will start June 02, 2018 second line therapy with a non-kipnuk single agent Taxol on the weekly schedule III weeks on then 1 week rest. Relapsed disease is subcentimeter and would be quite difficult to attempt a CT-guided biopsy without excessive risks. Will defer use of PDL 1 inhibitors for third line (consistent with FDA approval). #2 Long-term VTE secondary prophylaxis with anticoagulant. #3 Pros and cons of prophylactic cranial radiation for stage IV disease were discussed in a formal consultation was Dr. Cruz #4 Hyponatremia, resolved with no evidence for fluid retention will continue to hold sodium supplementation and watch sodium level. #5 Seizures secondary to hyponatremia no recurrences patient was weaned off anti-seizure medication by PCP was no recurrences. #6 Memory decline, recent brain MRI showed no focal lesions and she did not receive prophylactic cranial irradiation. Will watch for now. Seen was her impression and plan discussed and Their questions answered. Follow-up in 1 months Medications: Prescriptions This Visit Medication Instructions Recorded Lidocaine/Prilocaine 30 gm TP DAILY PRN PRN #1 cream..g. 10/07/17 Primary Care Provider: Andrés Helms MD Referring Provider: 06/02/18 3059 <Electronically signed by Gage Huggins MD> Date Gage Huggins MD Cosigner Signature: Date (if applicable) CC: CBC W/DIFF, AUTOMATED Collected: 06/02/2018 Status: F Source: [place] 9:35 AM [facility] REPOSITORY Order Comment: Reason for Laboratory Test CHEMO TYPE CODE TESTS RESULT OUT OF RANGE REFERENCE UNITS LAB L100.1000 4.4-11.0 K/mm3 Normal WBC 7.6 LAB L100.1200 4.2-5.4 M/mm3 Low RBC 3.59 LAB L100.1300 12.0-15.0 g/dl Low HGB 11.6 LAB L100.1400 37-47 % Low HCT 35.5 LAB L100.1500 81-99 fL Normal MCV 98.9 LAB L100.1600 27.0-32.0 pg High MCH 32.3 LAB L100.1700 32-36 g/gl Normal MCHC 32.7 LAB L100.1810 11.6-14.6 % Normal RDW CV 14.4 LAB L100.1820 35.1-43.9 fl High RDW SD 49.9 LAB L100.1900 150-450 K/mm3 Normal PLT 304 LAB L100.2000 6.2-12.0 fl Normal MPV 8.5 LAB L100.2100 47-70 % High NEUT% 70.4 LAB L100.2200 19-41 % Low LY% 16.1 LAB L100.2300 0-10 % High MONO% 11.0 LAB L100.2400 0-5 % Normal EO% 1.6 LAB L100.2500 0-1 % Normal BASO% 0.4 LAB L100.2550 0.0-0.9 % Normal IM GRAN % 0.500 Result Comment: IG% - Immature Granulocytes (promyelocytes, myelocytes and metamyelocytes) > 1% indicates that a LEFT SHIFT is Present. LAB L100.2620 2.0-7.7 X10 3/uL Normal Absolute Neut 5.3 LAB L100.2720 0.83-4.51 X10 3/ul Normal Absolute Lymph 1.22 Performed By: #### L100.0100 #### [facility] [address] [place], [address] COMPREHENSIVE METABOLIC Collected: 06/02/2018 Status: F Source: [place] 9:35 AM [facility] REPOSITORY Order Comment: Reason for Laboratory Test CHEMO TYPE CODE TESTS RESULT OUT OF RANGE REFERENCE UNITS LAB L501.0100 74-106 mg/dL Normal GLU 94 Result Comment: Please note revised GLUCOSE reference range effective 2017. LAB L501.1000 7-18 mg/dL Normal BUN 13 LAB L501.1100 0.55-1.02 mg/dL Normal CREAT,SERUM 0.89 Result Comment: The validity of the calculated GFR AND GFRAA in patients over 70 years has not been determined. Clinical correlation is essential. LAB L501.1110 >60 mL/min Normal EST GFR 69 Result Comment: Non- GFR Calc LAB L501.1115 >60 mL/min Normal EST GFR - AA 84 Result Comment: GFR Calc LAB L501.1255 ml/min Normal Estimated CRCL 61.24 LAB L501.1300 10-20 RATIO Normal BUN/CRE 14.7 LAB L501.1500 6.4-8. g/dL Normal 2 T PROT 6.9 LAB L501.1800 3.2-5. g/dL Normal 0 ALB 3.5 LAB L501.1950 2.2-4. g/dL Normal 2 GLOB 3.4 LAB L501.2000 0.9-2. RATIO Normal 4 A/G 1.0 LAB L501.2200 8.5-10 mg/dL Normal .1 CA 8.5 LAB L501.4100 15-37 U/L Low AST 14 LAB L501.4305 45-117 U/L Normal ALK P 76 LAB L501.4405 13-56 U/L Normal ALT 16 LAB L501.4600 0.20-1 mg/dL Normal .00 T BILI 0.70 LAB L501.5300 136-14 mmol/L Normal 5 NA 136 LAB L501.5600 3.5-5. mmol/L Normal 1 K 4.0 LAB L501.5900 98-107 mmol/L Normal CL 101 LAB L501.6100 21.0-3 mmol/L Normal 2.0 CO2 27.0 LAB L501.6200 5-15 Normal GAP 8 Performed By: #### L500.4050 #### [facility] [address] [place], [address] ONCOLOGY VISIT REPORT Observed: 05/22/2018 Status: F Source: [place] 11:49 AM [facility] REPOSITORY [facility] [address] [place] [address] OFFICE VISIT Date of Service: 05/22/18 1010 MR#: [id number] Acct: [id number] Name: WALI HALL Rep #: [id number] : 1960 From: Gage Huggins MD Age/Sex: 57/F Location: [facility] Status: Signed - Problem List (1) Small cell lung cancer in adult Status: Chronic (2) Seizure disorder Status: Chronic (3) Hyponatremia Status: Chronic (4) Lung nodule, multiple Status: Chronic (5) Regional lymph node metastasis present Status: Chronic (6) Anemia Status: Chronic - Date of Service Date of Service:: 05/22/18 - Chief Complaint Lung cancer - History of Present Illness Patient is a 57-year-old female smoker till the diagnosis of cancer was made who presented in late 2017 following a seizure and found to have a low sodium. Further workup in August 2017 included CAT scan of the chest, PET scan, and bone scan showed mediastinal and right hilar adenopathy, multiple bilateral lung nodules too small to further characterize on PET, questionable thoracic vertebral lesion (seen on CT but PET and bone scan did not suggest metastatic disease close). EBUS in September 2017 biopsy confirmed small cell lung cancer. Brain imaging did not show metastatic disease in the [employer]. Patient was initially seen by Dr. Moses and was prescribed cisplatin-irinotecan (received 2 cycles September - October 2017) for the goal of palliation plus or minus modest survival advantage for stage IV disease. She has tolerated this therapy with expected side effects and mostly troubled with GI toxicities. November 2017 she was hospitalized with bilateral pulmonary embolism and was started on Lovenox. Treatment: Cisplatin-irinotecan -10/2017 (2 cycles) excess toxicity (GI) MO Carboplatin- etoposide (2 CYCLES) v. 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 Cancer: Lung cancer Social History Social History: No changes Smoking Status Former smoker Review of Systems Constitutional:: Denies: Fever, Sweats, Weight loss, Appetite change, Chills Cardiovascular:: Denies: Chest pain, Palpitations, Dyspnea on exertion, Orthopnea, PND, Shortness of breath Respiratory: Denies: Cough, Hemoptysis, Shortness of Breath, Wheezing Gastrointestinal:: Reports: Constipation - Using [id number] fiber supplement. Denies: Abdominal pain, Nausea, Vomiting, Diarrhea, Hematochezia Genitourinary: Denies: Dysuria, Hematuria, 15, Flank pain Musculoskeletal:: Denies: Back pain, Myalgia, Arthralgia Skin: Denies: Rash, Skin Changes, Wounds Neurological:: Denies: Headache, Dizziness, Visual changes, Tinnitus, Hearing loss Psychiatric: Denies: Anxiety, Depression, Homicidal Ideations, Suicidal Ideations Vital Signs Height 5 ft 5 in Weight: 73.482 kg Weight in Pounds 162.0 lbs BMI 26.5 Pulse Ox 100 - Physical Exam General: Alert, Oriented x3, No apparent distress, - - ECOG 1 HEENT: Atraumatic, PERRLA, EOMI, Normocephalic Oropharynx:: Dry mucosa Neck:: Supple, Trachea midline, - - Port okay. Negative for: JVD, bilateral Cardiac:: Regular rate, Regular rhythm, Normal S1, Normal S2. Negative for: Murmur Lungs: Clear to auscultation, Diminished, Excusion symmetrical. Negative for: Rhonchi, Wheezes Abdomen:: Soft, Non-tender, Non-distended. Negative for: Hepatosplenomegaly Extremities:: Negative for: Cyanosis, Edema Neurological: Neuro grossly intact Skin:: Negative for: Lesions, Rash, Petechiae, Ecchymosis Psychiatric:: Appropriate affect, Euthymic Lymphatics:: Negative for: Cervical lymphadenopathy, Supraclavicular lymphadenopathy Laboratory Data: Reviewed in EMR Diagnostic Data: CT chest May 19, 2018: I personally reviewed the images and concur with the findings FINDINGS: There are stable mild emphysematous changes noted in the lungs. There is a new 9 mm nodule in the right lower lobe (image 68 series 6). There are additional stable subcentimeter pulmonary nodules measuring up to 5 mm. There are no pulmonary infiltrates or pleural effusions. There is no pneumothorax. The heart and pericardium are within normal limits. There is no thoracic lymphadenopathy. There is no evidence of thoracic aortic aneurysm. There are no destructive osseous lesions. There is a right-sided port with its tip in the superior vena cava. Assessment and Plan 57-year-old female smoker who presented with altered mental status, and seizures secondary to hyponatremia. Further workup revealed: 1- Small cell lung cancer metastatic to right hilar and mediastinal lymph nodes with indeterminate bilateral multiple pulmonary nodules (some nodules are calcified and consistent with granulomas, others are noncalcified and most likely represent metastatic disease). PDL 1 testing not done on September 2017 biopsy due to insufficient material. Clinically stage IV at presentation. She was initially treated under the care of Dr. Salazar with standard cisplatin Irenotecan and disease appears to have responded in the mediastinum and stable and the lungs after 2 cycles of therapy. However patient has had significant side effects impacting her quality of life (mainly metallic taste, diarrhea and fatigue) and therefore treatment was changed to carboplatin etoposide and she received further 2 cycles and disease remains stable. Toxicity from this line of therapy was mainly bone marrow and symptomatic anemia. Her chemotherapy was administered between September 2017 through December 2017. Her disease responded well and she went into a good remission and the patient functionally improved while on a holiday off chemotherapy. By May 2018 she has radiologic evidence of early relapse of the disease in the chest albeit still small volume and asymptomatic. 2- Developed malignancy induced hypercoagulability with bilateral pulmonary embolism November 2017, initially treated with Lovenox , now on oral savysa without bleeding complications. 3-anemia of cancer and chemotherapy , improved during holiday off chemotherapy 4-lower extremities edema, secondary to salt and fluid retention, improved as she stopped oral salt supplement and no recurrence of hyponatremia. Recommendations: #1 With remission duration of less than 6 months I advised second line therapy with a non-kipnuk single agent Taxol on the weekly schedule III weeks on then 1 week rest. Relapsed disease is subcentimeter and would be quite difficult to attempt a CT-guided biopsy without excessive risks. Will defer use of PDL 1 inhibitors for third line (consistent with FDA approval). #2 Long-term VTE secondary prophylaxis with anticoagulant. #3 Pros and cons of prophylactic cranial radiation for stage IV disease were discussed in a formal consultation was Dr. Cruz #4 Hyponatremia, resolved with no evidence for fluid retention will continue to hold sodium supplementation and watch sodium level. #5 Seizures secondary to hyponatremia no recurrences patient was weaned off anti-seizure medication by PCP was no recurrences. Seen was her impression and plan discussed and Their questions answered. Follow-up in 1 months Medications: Prescriptions This Visit Medication Instructions Recorded Lidocaine/Prilocaine 30 gm TP DAILY PRN PRN #1 cream..g. 10/07/17 [Lidocaine-Prilocaine Cream] Primary Care Provider: Andrés Helms MD Referring Provider: 05/22/18 1149 <Electronically signed by Gage Huggins MD> Date Gage Huggins MD Cosigner Signature: Date (if applicable) CC: Andrés Helms MD CBC W/DIFF, AUTOMATED Collected: 05/22/2018 Status: F Source: [place] 9:56 AM [facility] REPOSITORY Order Comment: Reason for Laboratory Test . TYPE CODE TESTS RESULT OUT OF RANGE REFERENCE UNITS LAB L100.1000 4.4-11.0 K/mm3 Normal WBC 7.6 LAB L100.1200 4.2-5.4 M/mm3 Low RBC 3.60 LAB L100.1300 12.0-15.0 g/dl Low HGB 11.5 LAB L100.1400 37-47 % Low HCT 35.4 LAB L100.1500 81-99 fL Normal MCV 98.3 LAB L100.1600 27.0-32.0 pg Normal MCH 31.9 LAB L100.1700 32-36 g/gl Normal MCHC 32.5 LAB L100.1810 11.6-14.6 % Normal RDW CV 14.1 LAB L100.1820 35.1-43.9 fl High RDW SD 50.3 LAB L100.1900 150-450 K/mm3 Normal PLT 297 LAB L100.2000 6.2-12.0 fl Normal MPV 8.7 LAB L100.2100 47-70 % High NEUT% 75.1 LAB L100.2200 19-41 % Low LY% 15.6 LAB L100.2300 0-10 % Normal MONO% 7.4 LAB L100.2400 0-5 % Normal EO% 1.6 LAB L100.2500 0-1 % Normal BASO% 0.3 LAB L100.2550 0.0-0.9 % Normal IM GRAN % 0.000 Result Comment: IG% - Immature Granulocytes (promyelocytes, myelocytes and metamyelocytes) > 1% indicates that a LEFT SHIFT is Present. LAB L100.2620 2.0-7.7 X10 3/uL Normal Absolute Neut 5.7 LAB L100.2720 0.83-4.51 X10 3/ul Normal Absolute Lymph 1.18 Performed By: #### L100.0100 #### [facility] [address] [place], [address] COMPREHENSIVE METABOLIC Collected: 05/22/2018 Status: F Source: [facility] 9:56 AM [facility] REPOSITORY Order Comment: Reason for Laboratory Test . TYPE CODE TESTS RESULT OUT OF RANGE REFERENCE UNITS LAB L501.0100 74-106 mg/dL High GLU 119 Result Comment: Fasting Glucose result from 100 to 125 mg/dL suggests IMPAIRED HOMEOSTASIS per A.D.A. criteria. Please note revised GLUCOSE reference range effective 2017. LAB L501.1000 7-18 mg/dL Normal BUN 11 LAB L501.1100 0.55-1.02 mg/dL Normal CREAT,SERUM 0.87 Result Comment: The validity of the calculated GFR AND GFRAA in patients over 70 years has not been determined. Clinical correlation is essential. LAB L501.1110 >60 mL/min Normal EST GFR 71 Result Comment: Non- GFR Calc LAB L501.1115 >60 mL/min Normal EST GFR - AA 86 Result Comment: GFR Calc LAB L501.1255 ml/min Normal Estimated CRCL 62.65 LAB L501.1300 10-20 RATIO Normal BUN/CRE 12.7 LAB L501.1500 6.4-8. g/dL Normal 2 T PROT 7.2 LAB L501.1800 3.2-5. g/dL Normal 0 ALB 3.6 LAB L501.1950 2.2-4. g/dL Normal 2 GLOB 3.6 LAB L501.2000 0.9-2. RATIO Normal 4 A/G 1.0 LAB L501.2200 8.5-10 mg/dL Normal .1 CA 8.6 LAB L501.4100 15-37 U/L Low AST 13 LAB L501.4305 45-117 U/L Normal ALK P 76 LAB L501.4405 13-56 U/L Normal ALT 14 LAB L501.4600 0.20-1 mg/dL Normal .00 T BILI 0.70 LAB L501.5300 136-14 mmol/L Normal 5 NA 137 LAB L501.5600 3.5-5. mmol/L Normal 1 K 4.0 LAB L501.5900 98-107 mmol/L Normal CL 103 LAB L501.6100 21.0-3 mmol/L Normal 2.0 CO2 28.0 LAB L501.6200 5-15 Normal GAP 6 Performed By: #### L500.4050 #### [facility] [address] [place], [address] CHEST WITH CONTRAST Observed: 05/19/2018 Status: F Source: [place] 7:48 AM [facility] REPOSITORY [facility] Imaging Services [address] [place] [address] Chest WITH Contrast MR#: [id number] Acct: [id number] Name: WALI HALL Rep #: [id number] : 1960 F 57 From: Emiliano Coppola MD PCP: Andrés Helms MD Status: REG CLI Study: Chest WITH Contrast Date of Exam: 05/19/18 Exam# [id number] Ordering Dr: Gage Huggins MD STUDY: CT CHEST WITH CONTRAST REASON FOR EXAM: Female, 57 years old. Lung cancer. History of pulmonary embolus. RADIATION DOSAGE (If Supplied By Facility): CTDIvol = ( 10.17 ) mGy, DLP = ( 662.11 ) mGycm TECHNIQUE: Transaxial imaging was performed following intravenous administration of 100 ml of Isovue 300 contrast material. Coronal and sagittal reformatted images were created. Individualized dose optimization techniques were used for this CT. COMPARISON: 03/04/2018 FINDINGS: There are stable mild emphysematous changes noted in the lungs. There is a new 9 mm nodule in the right lower lobe (image 68 series 6). There are additional stable subcentimeter pulmonary nodules measuring up to 5 mm. There are no pulmonary infiltrates or pleural effusions. There is no pneumothorax. The heart and pericardium are within normal limits. There is no thoracic lymphadenopathy. There is no evidence of thoracic aortic aneurysm. There are no destructive osseous lesions. There is a right-sided port with its tip in the superior vena cava. CT/Chest WITH Contrast IMPRESSION: Stable mild emphysema. New 9 mm nodule in the right lower lobe. Short-term follow- up or further evaluation with PET/CT is recommended. Electronically Signed: Emiliano Coppola, at 17:00 EDT Tel , Service support , CC: Andrés Helms MD; Gage Huggins MD Coal Gasification Technician: Signed ABDOMEN WITH IV Observed: 05/19/2018 Status: F Source: [place] CONTRAST 7:48 AM [facility] REPOSITORY [facility] Imaging Services [address] [place] [id number] Abdomen WITH IV Contrast MR#: [id number] Acct: [id number] Name: WALI HALL Rep #: [id number] : 1960 F 57 From: Emiliano Coppola MD PCP: Andrés Helms MD Status: REG CLI Study: Abdomen WITH IV Contrast Date of Exam: 05/19/18 Exam# [id number] Ordering Dr: Gage Huggins MD STUDY: CT ABDOMEN WITH CONTRAST REASON FOR EXAM: Female, 57 years old. Lung cancer. RADIATION DOSAGE (If Supplied By Facility): CTDIvol = ( 10.17 ) mGy, DLP = ( 662.11 ) mGycm TECHNIQUE: Transaxial images were obtained post I.V. administration of 100 ml of Isovue 300 contrast, and without oral contrast. Sagittal and coronal images were reconstructed. Individualized dose optimization techniques were used for this CT. COMPARISON: 03/04/2018 FINDINGS: The liver is within normal limits. There are no focal hepatic lesions. There are calcified gallstones present. There are calcified granulomata noted in the spleen. The spleen is otherwise unremarkable. The pancreas, adrenal glands and kidneys are within normal limits. The visualized bowel demonstrates no evidence of obstruction. There is no abdominal free air, free fluid or lymphadenopathy. The aorta is normal in caliber. There are no destructive osseous lesions. CT/Abdomen WITH IV Contrast IMPRESSION: No evidence of metastatic disease in the abdomen. Electronically Signed: Emiliano Coppola, at 17:06 EDT Tel , Service support , CC: Andrés Helms MD; Gage Huggins MD Coal Gasification Technician: Signed CBC W/DIFF, AUTOMATED Collected: 05/08/2018 Status: F Source: [place] 11:28 AM [facility] REPOSITORY Order Comment: Reason for Laboratory Test . TYPE CODE TESTS RESULT OUT OF RANGE REFERENCE UNITS LAB L100.1000 4.4-11.0 K/mm3 Normal WBC 5.9 LAB L100.1200 4.2-5.4 M/mm3 Low RBC 3.47 LAB L100.1300 12.0-15.0 g/dl Low HGB 11.3 LAB L100.1400 37-47 % Low HCT 33.9 LAB L100.1500 81-99 fL Normal MCV 97.7 LAB L100.1600 27.0-32.0 pg High MCH 32.6 LAB L100.1700 32-36 g/gl Normal MCHC 33.3 LAB L100.1810 11.6-14.6 % Normal RDW CV 13.5 LAB L100.1820 35.1-43.9 fl High RDW SD 47.3 LAB L100.1900 150-450 K/mm3 Normal PLT 315 LAB L100.2000 6.2-12.0 fl Normal MPV 8.5 LAB L100.2100 47-70 % Normal NEUT% 56.3 LAB L100.2200 19-41 % Normal LY% 30.6 LAB L100.2300 0-10 % High MONO% 10.4 LAB L100.2400 0-5 % Normal EO% 2.2 LAB L100.2500 0-1 % Normal BASO% 0.3 LAB L100.2550 0.0-0.9 % Normal IM GRAN % 0.200 Result Comment: IG% - Immature Granulocytes (promyelocytes, myelocytes and metamyelocytes) > 1% indicates that a LEFT SHIFT is Present. LAB L100.2620 2.0-7.7 X10 3/uL Normal Absolute Neut 3.3 LAB L100.2720 0.83-4.51 X10 3/ul Normal Absolute Lymph 1.80 Performed By: #### L100.0100, L500.4050 #### [facility] [address] [place], [address] COMPREHENSIVE METABOLIC Collected: 05/08/2018 Status: F Source: [facility] 11:28 AM [facility] REPOSITORY Order Comment: Reason for Laboratory Test . TYPE CODE TESTS RESULT OUT OF RANGE REFERENCE UNITS LAB L501.0100 74-106 mg/dL Normal GLU 82 Result Comment: Please note revised GLUCOSE reference range effective 2017. LAB L501.1000 7-18 mg/dL Normal BUN 10 LAB L501.1100 0.55-1.02 mg/dL Normal CREAT,SERUM 0.75 Result Comment: The validity of the calculated GFR AND GFRAA in patients over 70 years has not been determined. Clinical correlation is essential. LAB L501.1110 >60 mL/min Normal EST GFR 84 Result Comment: Non- GFR Calc LAB L501.1115 >60 mL/min Normal EST GFR - AA 102 Result Comment: GFR Calc LAB L501.1255 ml/min Normal Estimated CRCL 72.68 LAB L501.1300 10-20 RATIO Normal BUN/CRE 13.4 LAB L501.1500 6.4-8. g/dL Normal 2 T PROT 7.2 LAB L501.1800 3.2-5. g/dL Normal 0 ALB 3.4 LAB L501.1950 2.2-4. g/dL Normal 2 GLOB 3.8 LAB L501.2000 0.9-2. RATIO Normal 4 A/G 0.9 LAB L501.2200 8.5-10 mg/dL Normal .1 CA 9.1 LAB L501.4100 15-37 U/L Low AST 13 LAB L501.4305 45-117 U/L Normal ALK P 86 LAB L501.4405 13-56 U/L Normal ALT 14 LAB L501.4600 0.20-1 mg/dL Normal .00 T BILI 0.50 LAB L501.5300 136-14 mmol/L Normal 5 NA 137 LAB L501.5600 3.5-5. mmol/L Normal 1 K 4.2 LAB L501.5900 98-107 mmol/L Normal CL 103 LAB L501.6100 21.0-3 mmol/L Normal 2.0 CO2 27.0 LAB L501.6200 5-15 Normal GAP 7 Performed By: #### L100.0100, L500.4050 #### [facility] [address] [facility] [place], [address] ONCOLOGY VISIT REPORT Observed: 04/24/2018 Status: F Source: [place] 9:25 AM [facility] REPOSITORY [facility] [address] [place] [address] OFFICE VISIT Date of Service: 04/24/18 0850 MR#: [id number] Acct: [id number] Name: WALI HALL Andrew Rep #: [id number] : 1960 From: Gage Huggins MD Age/Sex: 57/F Location: ONC Status: Signed - Problem List (1) Small cell lung cancer in adult Status: Chronic (2) Seizure disorder Status: Chronic (3) Hyponatremia Status: Chronic (4) Lung nodule, multiple Status: Chronic (5) Regional lymph node metastasis present Status: Chronic (6) Anemia Status: Chronic - Date of Service Date of Service:: 04/24/18 - Chief Complaint Lung cancer - History of Present Illness Patient is a 57-year-old female smoker till the diagnosis of cancer was made who presented in late 2017 following a seizure and found to have a low sodium. Further workup in August 2017 included CAT scan of the chest, PET scan, and bone scan showed mediastinal and right hilar adenopathy, multiple bilateral lung nodules too small to further characterize on PET, questionable thoracic vertebral lesion (seen on CT but PET and bone scan did not suggest metastatic disease close). EBUS in September 2017 biopsy confirmed small cell lung cancer. Brain imaging did not show metastatic disease in the SUGAR [employer]LL[employer]. Patient was initially seen by Dr. Moses and was prescribed cisplatin-irinotecan (received 2 cycles September - October 2017) for the goal of palliation plus or minus modest survival advantage for stage IV disease. She has tolerated this therapy with expected side effects and mostly troubled with GI toxicities. November 2017 she was hospitalized with bilateral pulmonary embolism and was started on Lovenox. Treatment: Cisplatin-irinotecan -10/2017 (2 cycles) excess toxicity (GI) [place] Carboplatin- etoposide -12/2017 (2 CYCLES) v. 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 Cancer: Lung cancer Social History Social History: No changes Smoking Status Former smoker Review of Systems Constitutional:: Denies: Fever, Sweats, Weight loss, Appetite change, Chills Cardiovascular:: Denies: Chest pain, Palpitations, Dyspnea on exertion, Orthopnea, PND, Shortness of breath Respiratory: Denies: Cough, Hemoptysis, Shortness of Breath, Wheezing Gastrointestinal:: Denies: Abdominal pain, Nausea, Vomiting, Diarrhea, Constipation, Hematochezia Genitourinary: Denies: Dysuria, Hematuria, 15, Flank pain Musculoskeletal:: Reports: - - Accidentally injured left ankle 2 days earlier, pain is not severe enough to take analgesics. Denies: Back pain, Myalgia, Arthralgia Skin: Denies: Rash, Skin Changes, Wounds Neurological:: Denies: Headache, Dizziness, Visual changes, Tinnitus, Hearing loss Psychiatric: Denies: Anxiety, Depression, Homicidal Ideations, Suicidal Ideations Vital Signs Height 5 ft 5 in Weight: 72.257 kg Weight in Pounds 159.3 lbs BMI 26.5 Pulse Ox 97 - Physical Exam General: Alert, Oriented x3, No apparent distress HEENT: Atraumatic, PERRLA, EOMI, Normocephalic Oropharynx:: Dry mucosa Neck:: Supple, Trachea midline, - - Port okay. Negative for: JVD, bilateral Cardiac:: Regular rate, Regular rhythm, Normal S1, Normal S2. Negative for: Murmur Lungs: Clear to auscultation, Excusion symmetrical. Negative for: Rhonchi, Wheezes Abdomen:: Soft, Non-tender, Non-distended. Negative for: Hepatosplenomegaly Extremities:: - - Left ankle swelling and bruising. Negative for: Cyanosis, Edema Neurological: Neuro grossly intact Skin:: Negative for: Lesions, Rash, Petechiae, Ecchymosis Psychiatric:: Appropriate affect, Euthymic Lymphatics:: Negative for: Cervical lymphadenopathy, Supraclavicular lymphadenopathy Laboratory Data: Reviewed in EMR Assessment and Plan 57-year-old female with 1- Small cell lung cancer metastatic to right hilar and mediastinal lymph nodes with indeterminate bilateral multiple pulmonary nodules (some nodules are calcified and consistent with granulomas, others are noncalcified and most likely represent metastatic disease). PDL 1 testing not done on September 2017 biopsy due to insufficient material. Clinically stage IV at presentation which was with altered mental status, seizures secondary to hyponatremia. Patient has had no recurrent seizures, was weaned off antiseizure medications and sodium supplementation as her disease responded to systemic chemotherapy. She was initially treated under the care of Dr. Salazar with standard cisplatin Irenotecan and disease appears to have responded in the mediastinum and stable and the lungs after 2 cycles of therapy. However patient has had side effects impacting her quality of life (mainly metallic taste, diarrhea and fatigue) and therefore treatment was changed to carboplatin etoposide and she received further 2 cycles and disease remains stable. Toxicity from this line of therapy was mainly bone marrow and symptomatic anemia. Her disease is in a very good remission (no visible gross pathology by imaging February 2018) and the patient functionally improved while on a holiday off chemotherapy. 2- Developed malignancy induced hypercoagulability with bilateral pulmonary embolism November 2017, on Lovenox since. 3-anemia of cancer and chemotherapy , improved during holiday off chemotherapy 4-lower extremities edema, secondary to salt and fluid retention, improved Recommendations: #1 Continue a holiday from [place] based systemic chemotherapy to resume systemic therapy when the disease relapses (expected from the natural history of metastatic disease). At time of relapse would consider rebiopsy and obtaining tissue to test for PDL 1 expression. #2 Long-term secondary prophylaxis with anticoagulant, she has received a little over 3 months with Lovenox 1.5 mg/kg subcu daily, will switch to oral savaysa 60 mg daily and stop Lovenox (patient's preference is for an oral agent). #3 Pros and cons of prophylactic cranial radiation for stage IV disease were discussed in and a formal consultation was Dr. Cruz #4 Hyponatremia, resolved with no evidence for fluid retention will continue to hold sodium supplementation and watch sodium level. #5 Seizures secondary to hyponatremia no recurrences patient was weaned off anti-seizure medication by PCP was no recurrences. #6 Follow-up in 1 month and she will be due for restaging CT scan chest and abdomen. Seen was her impression and plan discussed and Their questions answered. Follow-up in 1 months Medications: Prescriptions This Visit Medication Instructions Recorded Lidocaine/Prilocaine 30 gm TP DAILY PRN PRN #1 cream..g. 10/07/17 Primary Care Provider: Andrés Helms MD Referring Provider: 04/24/18 0925 <Electronically signed by Gage Huggins MD> Date Gage Huggins MD Cosigner Signature: Date (if applicable) CC: Andrés Helms MD CBC W/DIFF, AUTOMATED Collected: 04/22/2018 Status: F Source: [place] 8:04 AM [facility] REPOSITORY Order Comment: Reason for Laboratory Test . TYPE CODE TESTS RESULT OUT OF RANGE REFERENCE UNITS LAB L100.1000 4.4-11.0 K/mm3 Low WBC 4.0 LAB L100.1200 4.2-5.4 M/mm3 Low RBC 3.44 LAB L100.1300 12.0-15.0 g/dl Low HGB 10.8 LAB L100.1400 37-47 % Low HCT 33.6 LAB L100.1500 81-99 fL Normal MCV 97.7 LAB L100.1600 27.0-32.0 pg Normal MCH 31.4 LAB L100.1700 32-36 g/gl Normal MCHC 32.1 LAB L100.1810 11.6-14.6 % Normal RDW CV 13.1 LAB L100.1820 35.1-43.9 fl High RDW SD 46.6 LAB L100.1900 150-450 K/mm3 Normal PLT 240 LAB L100.2000 6.2-12.0 fl Normal MPV 8.6 LAB L100.2100 47-70 % Low NEUT% 38.5 LAB L100.2200 19-41 % Normal LY% 39.6 LAB L100.2300 0-10 % High MONO% 13.6 LAB L100.2400 0-5 % High EO% 7.4 LAB L100.2500 0-1 % Normal BASO% 0.7 LAB L100.2550 0.0-0.9 % Normal IM GRAN % 0.200 Result Comment: IG% - Immature Granulocytes (promyelocytes, myelocytes and metamyelocytes) > 1% indicates that a LEFT SHIFT is Present. LAB L100.2620 2.0-7.7 X10 3/uL Low Absolute Neut 1.6 LAB L100.2720 0.83-4.51 X10 3/ul Normal Absolute Lymph 1.60 Performed By: #### L100.0100, L500.4050 #### [facility] [address] [place], [address] COMPREHENSIVE METABOLIC Collected: 04/22/2018 Status: F Source: [place] 8:04 AM [facility] REPOSITORY Order Comment: Reason for Laboratory Test . TYPE CODE TESTS RESULT OUT OF RANGE REFERENCE UNITS LAB L501.0100 74-106 mg/dL Normal GLU 86 Result Comment: Please note revised GLUCOSE reference range effective 2017. LAB L501.1000 7-18 mg/dL Normal BUN 9 LAB L501.1100 0.55-1.02 mg/dL Normal CREAT,SERUM 0.73 Result Comment: The validity of the calculated GFR AND GFRAA in patients over 70 years has not been determined. Clinical correlation is essential. LAB L501.1110 >60 mL/min Normal EST GFR 87 Result Comment: Non- GFR Calc LAB L501.1115 >60 mL/min Normal EST GFR - AA 105 Result Comment: GFR Calc LAB L501.1255 ml/min Normal Estimated CRCL 74.67 LAB L501.1300 10-20 RATIO Normal BUN/CRE 12.4 LAB L501.1500 6.4-8. g/dL Normal 2 T PROT 6.5 LAB L501.1800 3.2-5. g/dL Normal 0 ALB 3.2 LAB L501.1950 2.2-4. g/dL Normal 2 GLOB 3.3 LAB L501.2000 0.9-2. RATIO Normal 4 A/G 1.0 LAB L501.2200 8.5-10 mg/dL Low .1 CA 8.4 LAB L501.4100 15-37 U/L Normal AST 20 LAB L501.4305 45-117 U/L Normal ALK P 70 LAB L501.4405 13-56 U/L Normal ALT 24 LAB L501.4600 0.20-1 mg/dL Normal .00 T BILI 0.40 LAB L501.5300 136-14 mmol/L Normal 5 NA 140 LAB L501.5600 3.5-5. mmol/L Normal 1 K 4.2 LAB L501.5900 98-107 mmol/L Normal CL 106 LAB L501.6100 21.0-3 mmol/L Normal 2.0 CO2 25.0 LAB L501.6200 5-15 Normal GAP 9 Performed By: #### L100.0100, L500.4050 #### [facility] [address] [place], [place], [address] CONSULTATION Observed: 04/14/2018 Status: F Source: [place] 10:33 AM [facility] REPOSITORY [facility] Medical Records Department [address] [place] [address] Consultation 04/14/18 1008 MR#: [id number] Acct: [id number] Name: WALI HALL Rep #: [id number] : 1960 57 From: Yury Anthony PERALTA PCP: Andrés Helms MD Status: REG RCR Y Location: [facility] Date of Service: 04/14/18 Referring Provider: Dr. Huggins Diagnosis: Wali Hall is a 57-year-old female diagnosed with extensive stage small cell lung cancer with disease involvement in the mediastinum and likely bilateral pulmonary parenchyma who is completed 2 cycles of Cisplatin/Irinotecan () and 2 cycles of Carboplatin/Etoposide () it has no evidence of disease on recent imaging including CT C/A/P (03/04/18) and Brain MRI (04/03/18). History of Present Illness: July 2017: Patient was admitted to the hospital at the end of July 2017 for altered mental status. During that hospitalization she was noted to be hyponatremic. Her sodium was low as 125. She was treated with IV fluids and was seen in consultation by neurology. They did not feel that she sustained a stroke. Rather, they felt that her altered mentation was a consequence of her serum sodium level. She then returned to the emergency department on August 28 with unresponsiveness and seizure-like activity. A CTA chest was obtained at that time which revealed no evidence for PE. However, there was evidence of subcarinal and bilateral hilar adenopathy, along with a 4 mm noncalcified lung nodule in the right lower lobe. There was additional note of a potential lytic lesion in the patient's spine. The patient was started on Keppra. The patient reportedly had an EEG completed which was not consistent with seizure-like activity. Echocardiogram from July 2017 revealed normal LV size with an ejection fraction of 55%. Pulmonary artery systolic pressure was estimated to be 46 mmHg. 09/06/2017: PET scan was performed for solitary pulmonary nodule. This demonstrated multiple subcentimeter lung nodules with findings too small to be accurately characterized by PET. There is hypermetabolic mediastinal lymphadenopathy which is concerning for malignancy. There is asymmetric increased activity within the right subscapularis muscle without underlying mass or abnormality. 09/27/2017: Patient underwent bronchoscopy with EBUS. Biopsy of level 7 and level 10 R lymph nodes were positive for malignancy consistent with small cell carcinoma. 10/07/2017: Bone scan was completed which demonstrated abnormalities consistent with degenerative arthritis and no evidence for metastatic disease. 10/14/2017: Initiated chemotherapy with Cisplatin/Irinotecan -12/2017: Due to toxicity chemotherapy is switched to carboplatin/etoposide 01/14/2018: CT chest abdomen pelvis was completed which demonstrated stable small pulmonary nodules measuring up to 4 mm with no new nodules or masses noted. No thoracic adenopathy is noted, there are calcified mediastinal and hilar lymph nodes consistent with prior granulomatous disease. No evidence of metastatic disease was noted in the abdomen or pelvis. 03/04/2018: CT chest abdomen pelvis was performed which demonstrated no demonstrated pleural abnormality, multiple small lymph nodes within the mediastinum which are normal size and morphology and no evidence for metastatic disease within the abdomen or pelvis. 03/27/2018: Patient was evaluated by medical oncology and plan was made to continue chemotherapy holiday and resume treatment if the disease recurs. 04/03/2018: Brain MRI was completed which demonstrated multiple foci of hyperintensity throughout the frontal white matter with differential diagnosis including small vessel ischemic white matter disease, demyelinating disease such as multiple sclerosis or vasculitides such as lupus, sarcoid or Lyme disease. There is no evidence for metastatic disease in the brain. Radiation Treatment History: Denies history of any previous radiation therapy. Denies diagnosis of collagen vascular disease and does not have a pacemaker. Interval History: Patient presents for initial consultation. She has been off chemotherapy for several months and last set of imaging showed evidence of essentially complete response extracranially. She believes that most of the side effects associated with previous chemotherapy have resolved other than some continued fatigue which has gradually improved. She reports normal appetite and no recent weight loss. As result of her fatigue she is fairly inactive although is able to completely take care of herself with no difficulties. She denies having shortness of breath on exertion unless she goes up several flights of stairs. She denies having cough, shortness of breath, dysphagia, odynophagia, bone pain, headaches, double vision, weakness/numbness, ataxia. She does report having a perceived reduction in short-term memory near the time of her initial diagnosis but denies having any difficulties or short-term memory at this time. She denies having any cognitive deficits or decrease thinking ability. She denies having any problems or concerns at this time. Family History (Last Reviewed 03/27/18 @ 08:54 by Elizabeth Canchola) Mother Breast cancer Father Cancer brain and lung Sister Aneurysm Medical History (Last Reviewed 03/27/18 @ 08:52 by Elizabeth Canchola) Blood clot in vein (Acute) Small cell lung cancer in adult (Chronic) Seizure disorder (Chronic) Tobacco dependence in remission (Chronic) Hyponatremia (Chronic) Surgical History (Last Reviewed 03/27/18 @ 08:54 by Elizabeth Canchola) H/O breast augmentation (Acute) History of carpal tunnel release (Acute) History of tubal ligation (Acute) hammer toe repair (Acute) med port placement (Acute) Sep 2017 Social History - Tobacco Smoking Status Former smoker Years used: 40 Social History - Substance Drug use: No Caffeine use [drinks/day]: 1 Alcohol use: No Social History - Living Arrangements Patients Living Arrangements With Significant Other Home Medications Medication Instructions Recorded Lidocaine/Prilocaine 30 gm TP DAILY PRN PRN #1 cream..g. 10/07/17 [Lidocaine-Prilocaine Cream] levetiracetam 750 mg tablet 750 mg PO Q12H #90 tab 10/22/17 Allergy/AdvReac Type Severity Reaction Status Date / Time No Known Allergies Allergy Verified 04/14/18 08:55 Health Maintenance Do you regularly see your Yes primary care physician? Have you ever had a No colonoscopy? I have reviewed the medical, surgical, and other pertinent history in details and have updated medication and allergy information in the electronic medical record. Review of Systems: A 12-point review of systems was completed and was negative except for what is noted in the HPI/Interval History and by the nurse. Height/Weight/BMI: Height: 5 ft 5 in Weight: 72.257 kg BMI: 26.5 Vital Signs Temperature 98.8 F 04/14/18 08:57 Temperature Source Oral 04/14/18 08:57 Pulse Rate 81 04/14/18 08:57 Respiratory Rate 16 04/14/18 08:57 Respiratory Pattern Normal 12/31/17 10:15 Physical Exam: ECO KARNOFSKY SCORE: 90% CONSTITUTIONAL: Well-developed, well-nourished, and in no apparent distress. HEENT: Mucous membranes moist. No evidence of thrush or lesions within the visualized oropharynx or oral cavity. No trismus. Pupils are equal, round, and reactive to light and accommodation. Extraocular movements are intact. Sclerae are anicteric. NECK: Supple,with no thyromegaly, and non-tender. Trachea midline. No cervical or supraclavicular adenopathy noted. CARDIAC: Regular rate and rhythm. Normal S1, S2. No murmurs, rubs, or gallops. PULMONARY/CHEST: Lungs are clear to auscultation and percussion bilaterally. No wheezes, rhonchi, or crackles noted. No increased work of breathing. ABDOMINAL: Abdomen soft, non-tender, non-distended. No hepatomegaly. Normoactive bowel sounds in all four quadrants. No guarding, rebound. BACK: Straight and aligned. No CVA tenderness. Axial skeleton non-tender to percussion. EXTREMITIES: Full range of motion in all four extremities, with normal strength equally and symmetrically. No evidence of edema. No clubbing. NEUROLOGICAL EXAM: Alert and oriented x 3. Cranial nerves II through XII are grossly intact. No focal neurological deficit. Speech is fluent. There is no upper or lower extremity sensory deficit or motor deficit. Muscle strength is 5/5 in all muscle groups. Gait and posture are steady. PSYCHIATRIC: Appropriate mood and affect for the clinical situation. Imaging: As per HPI Laboratory Data: Laboratory Tests WBC 3.8 L Hgb 11.3 L Plt Count 302 Absolute Neuts (auto) 1.9 L Sodium 136 BUN 6 L Creatinine 0.77 Calcium 8.6 Assessment/Plan: Wali Hall is a 57-year-old female diagnosed with extensive stage small cell lung cancer with disease involvement in the mediastinum and likely bilateral pulmonary parenchyma who is completed 2 cycles of Cisplatin/Irinotecan () and 2 cycles of Carboplatin/Etoposide () it has no evidence of disease on recent imaging including CT C/A/P (03/04/18) and Brain MRI (04/03/18). Reviewed the results of the recent imaging studies including CT chest abdomen and pelvis completed in mid February 2018 which demonstrated an essentially complete response in the thorax and no evidence of new metastatic disease anywhere else. I also reviewed the results of the brain MRI which demonstrated no evidence of metastatic disease to the brain. Clinically the patient is improving gradually from previous chemotherapy still with some residual fatigue but otherwise doing well. I had detailed discussion with the patient regarding the diagnosis of extensive stage small cell lung cancer and various treatment recommendations. I described that prophylactic cranial irradiation has been shown to reduce the incidence of symptomatic brain metastases and result in longer overall survival compared with observation in patients who have had any response to initial chemotherapy. However I reviewed that this data was derived in studies that did not require brain imaging before enrollment and so the question of whether patients were actually receiving PCI is unknown. I also discussed that recently there was a randomized controlled trial (Maurice et al, Lancet 2017) that demonstrated no improvement in overall survival in patients who undergo prophylactic cranial radiation radiation compared to patients who have MRI brain every 3 months and initiate therapy only if and when brain metastases develop. I reviewed the patients in this trial who are on observation did have a higher increased risk of developing brain metastases, however many of the patients in this arm were able to avoid treatment. I thoroughly reviewed that prophylactic cranial radiation does have potential toxicities including acute toxicities of skin irritation, alopecia, headaches, nausea/vomiting, fatigue and chronic toxicities including decrease in hearing, neurocognitive decline especially in short-term memory and cognition, and very unlikely risk for more serious side effects such as nerve damage, vascular damage (stroke), or radiation necrosis. I reviewed the use of memantine with radiation therapy to help prevent neurocognitive decline but also discussed that this does not alleviate all risk in many patients who take memantine still will have neurocognitive decline of some kind. I reviewed the logistics of radiation therapy including CT simulation, treatment planning, and daily fractionated radiation therapy for 10 treatments with weekly physician visits. Although prophylactic cranial radiation can reduce the development of metastatic disease to the brain, given that this treatment has potential life-changing toxicities and that overall survival is not improved over periodic brain MRI imaging, I would recommend that we pursue MRI brain every 3 months and utilize whole brain radiation therapy if brain metastases should develop. She will continue extracranial imaging to evaluate for any disease recurrence/progression every 3 months as per medical oncology. She was instructed to call with any further questions or concerns in the interim. Thank you for allowing me to participate in the management and care of your patient. If I may answer any questions in the interim, please do not hesitate to contact me at any time. Yury Cruz DO, MS Field Operations Coordinator, Department of Radiation Oncology [facility] 04/14/18 1033 <Electronically signed by Yury Cruz DO> Date Yury Cruz DO Rachelle Signature (if applicable): Date CC: Andrés Helms MD; Gage Huggins MD Signed BASIC METABOLIC Collected: 04/14/2018 Status: F Source: [place] PROFILE ([facility]) 8:17 AM [facility] REPOSITORY Order Comment: Reason for Laboratory Test . TYPE CODE TESTS RESULT OUT OF RANGE REFERENCE UNITS LAB L501.0100 74-106 mg/dL Normal GLU 84 Result Comment: Please note revised GLUCOSE reference range effective 2017. LAB L501.1000 7-18 mg/dL Low BUN 6 LAB L501.1100 0.55-1.02 mg/dL Normal CREAT,SERUM 0.77 Result Comment: The validity of the calculated GFR AND GFRAA in patients over 70 years has not been determined. Clinical correlation is essential. LAB L501.1110 >60 mL/min Normal EST GFR 81 Result Comment: Non- GFR Calc LAB L501.1115 >60 mL/min Normal EST GFR - AA 98 Result Comment: GFR Calc LAB L501.1255 ml/min Normal Estimated CRCL 73.64 LAB L501.1300 10-20 RATIO Low BUN/CRE 7.8 LAB L501.2200 8.5-10 mg/dL Normal .1 CA 8.6 LAB L501.5300 136-14 mmol/L Normal 5 NA 136 LAB L501.5600 3.5-5. mmol/L Normal 1 K 4.4 LAB L501.5900 98-107 mmol/L Normal CL 103 LAB L501.6100 21.0-3 mmol/L Normal 2.0 CO2 26.0 LAB L501.6200 5-15 Normal GAP 7 Performed By: #### L500.2500 #### [facility] [address] [place], [address] BASIC METABOLIC Collected: 04/07/2018 Status: F Source: [place] PROFILE ([facility]) 8:07 AM [facility] REPOSITORY Order Comment: Reason for Laboratory Test . TYPE CODE TESTS RESULT OUT OF RANGE REFERENCE UNITS LAB L501.0100 74-106 mg/dL Normal GLU 85 Result Comment: Please note revised GLUCOSE reference range effective 2017. LAB L501.1000 7-18 mg/dL Normal BUN 8 LAB L501.1100 0.55-1.02 mg/dL Normal CREAT,SERUM 0.70 Result Comment: The validity of the calculated GFR AND GFRAA in patients over 70 years has not been determined. Clinical correlation is essential. LAB L501.1110 >60 mL/min Normal EST GFR 91 Result Comment: Non- GFR Calc LAB L501.1115 >60 mL/min Normal EST GFR - AA 111 Result Comment: GFR Calc LAB L501.1255 ml/min Normal Estimated CRCL 81.01 LAB L501.1300 10-20 RATIO Normal BUN/CRE 11.5 LAB L501.2200 8.5-10 mg/dL Normal .1 CA 8.8 LAB L501.5300 136-14 mmol/L Normal 5 NA 138 LAB L501.5600 3.5-5. mmol/L Normal 1 K 4.2 LAB L501.5900 98-107 mmol/L Normal CL 104 LAB L501.6100 21.0-3 mmol/L Normal 2.0 CO2 28.0 LAB L501.6200 5-15 Normal GAP 6 Performed By: #### L500.2500 #### [facility] [address] [place], [address] BRAIN W/WO CONTRAST Observed: 04/03/2018 Status: F Source: [place] 9:16 AM [facility] REPOSITORY [facility] Imaging Services [address] [place] [address] Brain W/WO Contrast MR#: [id number] Acct: [id number] Name: WALI HALL Rep #: [id number] : 1960 F 57 From: Salud Pinon MD PCP: Andrés Helms MD Status: REG CLI Study: Brain W/WO Contrast Date of Exam: 04/03/18 Exam# [id number] Ordering Dr: Gage Huggins MD STUDY: MRI BRAIN WITH AND WITHOUT CONTRAST REASON FOR EXAM: Female, 57 years old. LUNG CA, NO NEURO SYMPTOMS TECHNIQUE: Standardized multiplanar fat and water weighted pulse sequences were obtained. 7 ml of Gadavist contrast material was administered intravenously for the contrast portion of the examination. COMPARISON: CT October 17, 2017, MRI August 17, 2017 FINDINGS: Normal size of the ventricles and extra-axial spaces for the patient's age. There are multiple small foci of FLAIR signal hyperintensity throughout the bilateral frontal white matter. They do not enhance. Normal bilateral basal ganglia. Normal thalami. There is no extra-axial fluid accumulation. Normal flow voids within the major intracranial circulation suggesting patency by spin echo criteria. Normal venous enhancement. There is no enhancing intra-axial or extra-axial abnormality. Normal sella turcica, pituitary gland, infundibular stalk, optic chiasm and hypothalamus. Normal tectal plate and pineal gland. Normal midbrain, dede and medulla. Normal cerebellum. Normal basal cisterns. Normal bilateral temporal bones. Normal bilateral internal auditory canals. No demonstrated orbital abnormality, within the constraints of a routine brain study. There is mucosal thickening of the sphenoid and left posterior ethmoid sinuses.. Normal calvarium and skull base. Normal visualized soft tissue structures. Normal visualized upper cervical spine. MRI/Brain W/WO Contrast IMPRESSION: There are multiple foci of hyperintensity throughout the frontal white matter. The differential diagnosis includes mild small vessel ischemic white matter disease, greater than expected for age, demyelinating disease such as multiple sclerosis, vasculitides such as lupus, sarcoid and Lyme disease. No demonstrated metastatic disease. There is paranasal sinusitis. Electronically Signed: Salud Pinon MD at 13:55 EDT , Service support , CC: Andrés Helms MD; Gage Huggins MD Coal Gasification Technician: Signed BASIC METABOLIC Collected: 03/31/2018 Status: F Source: [place] PROFILE ([facility]) 8:08 AM [facility] REPOSITORY Order Comment: Reason for Laboratory Test . TYPE CODE TESTS RESULT OUT OF RANGE REFERENCE UNITS LAB L501.0100 74-106 mg/dL Normal GLU 82 Result Comment: Please note revised GLUCOSE reference range effective 2017. LAB L501.1000 7-18 mg/dL Normal BUN 7 LAB L501.1100 0.55-1.02 mg/dL Normal CREAT,SERUM 0.70 Result Comment: The validity of the calculated GFR AND GFRAA in patients over 70 years has not been determined. Clinical correlation is essential. LAB L501.1110 >60 mL/min Normal EST GFR 90 Result Comment: Non- GFR Calc LAB L501.1115 >60 mL/min Normal EST GFR - AA 109 Result Comment: GFR Calc LAB L501.1255 ml/min Normal Estimated CRCL 81.01 LAB L501.1300 10-20 RATIO Low BUN/CRE 9.9 LAB L501.2200 8.5-10 mg/dL Normal .1 CA 8.8 LAB L501.5300 136-14 mmol/L Low 5 NA 135 LAB L501.5600 3.5-5. mmol/L Normal 1 K 4.4 LAB L501.5900 98-107 mmol/L Normal CL 101 LAB L501.6100 21.0-3 mmol/L Normal 2.0 CO2 28.0 LAB L501.6200 5-15 Normal GAP 6 Performed By: #### L500.2500 #### [facility] [address] [place], [address] ONCOLOGY VISIT REPORT Observed: 03/27/2018 Status: F Source: [place] 9:44 AM [facility] REPOSITORY [facility] [address] [place] [address] OFFICE VISIT Date of Service: 03/27/18 0838 MR#: [id number] Acct: [id number] Name: WALI HALL Andrew Rep #: [id number] : 1960 From: Gage Huggins MD Age/Sex: 57/F Location: OMD Status: Signed - Problem List (1) Small cell lung cancer in adult Status: Chronic (2) Seizure disorder Status: Chronic (3) Hyponatremia Status: Chronic (4) Lung nodule, multiple Status: Chronic (5) Regional lymph node metastasis present Status: Chronic (6) Anemia Status: Chronic - Date of Service Date of Service:: 03/27/18 - Chief Complaint Lung cancer - History of Present Illness Patient is a 57-year-old female smoker till the diagnosis of cancer was made who presented in late 2017 following a seizure and found to have a low sodium. Further workup in August 2017 included CAT scan of the chest, PET scan, and bone scan showed mediastinal and right hilar adenopathy, multiple bilateral lung nodules too small to further characterize on PET, questionable thoracic vertebral lesion (seen on CT but PET and bone scan did not suggest metastatic disease close). EBUS in September 2017 biopsy confirmed small cell lung cancer. Brain imaging did not show metastatic disease in the SUGAR CONTROLLER. Patient was initially seen by Dr. Moses and was prescribed cisplatin-irinotecan (received 2 cycles September - October 2017) for the goal of palliation plus or minus modest survival advantage for stage IV disease. She has tolerated this therapy with expected side effects and mostly troubled with GI toxicities. November 2017 she was hospitalized with bilateral pulmonary embolism and was started on Lovenox. 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 Denies: Fever, Sweats, Weight loss, Appetite change, Chills Cardiovascular:: Reports: Dyspnea on exertion. Denies: Chest pain, Palpitations, Orthopnea, PND, Shortness of breath Respiratory: Reports: Shortness of breath upon exertion. Denies: Cough, Hemoptysis, Shortness of Breath, Wheezing Gastrointestinal:: Denies: Abdominal pain, Nausea, Vomiting, Diarrhea, Constipation, Hematochezia Genitourinary: Denies: Dysuria, Hematuria, 15, Flank pain Musculoskeletal:: Denies: Back pain, Myalgia, Arthralgia Skin: Reports: - - Bruises at sites of Lovenox injections. Denies: Rash, Skin Changes, Wounds Neurological:: Denies: Headache, Dizziness, Visual changes, Tinnitus, Hearing loss Psychiatric: Denies: Anxiety, Depression, Homicidal Ideations, Suicidal Ideations Vital Signs Height 5 ft 6 in Weight: 71.668 kg Weight in Pounds 158.0 lbs Pulse Ox 97 - Physical Exam General: Alert, Oriented x3, No apparent distress, - - ECOG 1 HEENT: Atraumatic, PERRLA, EOMI, Normocephalic Oropharynx:: Dry mucosa Neck:: Supple, Trachea midline, - - Port okay. Negative for: JVD, bilateral Cardiac:: Regular rate, Regular rhythm, Normal S1, Normal S2. Negative for: Murmur Lungs: Clear to auscultation, Diminished, Excusion symmetrical. Negative for: Rhonchi, Wheezes Abdomen:: Bowel sounds x 4, Soft, Non-tender, Non-distended. Negative for: Hepatosplenomegaly Extremities:: Negative for: Cyanosis, Edema Neurological: Neuro grossly intact Skin:: Ecchymosis - Abdominal skin at sites of Lovenox injections. Negative for: Lesions, Rash, Petechiae Psychiatric:: Appropriate affect, Euthymic Lymphatics:: Negative for: Cervical lymphadenopathy, Supraclavicular lymphadenopathy Diagnostic Data: CT scans chest abdomen and pelvis February 2018 shows stable disease Assessment and Plan 57-year-old female with 1- Small cell lung cancer metastatic to right hilar and mediastinal lymph nodes with indeterminate bilateral multiple pulmonary nodules (some nodules are calcified and consistent with granulomas, others are noncalcified and most likely represent metastatic disease). PDL 1 testing not done on September 2017 biopsy due to insufficient material. Clinically stage IV at presentation which was with altered mental status, seizures secondary to hyponatremia. Patient has had no recurrent seizures, was weaned off antiseizure medications and sodium supplementation as her disease responded to systemic chemotherapy. She was initially treated under the care of Dr. Salazar with standard cisplatin Irenotecan and disease appears to have responded in the mediastinum and stable and the lungs after 2 cycles of therapy. However patient has had side effects impacting her quality of life (mainly metallic taste, diarrhea and fatigue) and therefore treatment was changed to carboplatin etoposide and she received further 2 cycles and disease remains stable. Toxicity from this line of therapy was mainly bone marrow and symptomatic anemia. Her disease is in a good remission (no visible gross pathology by imaging February 2018) and the patient functionally improved while on a holiday off chemotherapy. 2- Developed malignancy induced hypercoagulability with bilateral pulmonary embolism November 2017, on Lovenox since. She wishes to switch to an oral agent if possible 3-anemia of cancer and chemotherapy , improved during holiday off chemotherapy 4-lower extremities edema, secondary to salt and fluid retention, improved Recommendations: #1 Continue a holiday from [place] based systemic chemotherapy to resume systemic therapy when the disease relapses (expected from the natural history of metastatic disease). At time of relapse would consider rebiopsy and obtaining tissue to test for PDL 1 expression. #2 Long-term secondary prophylaxis with anticoagulant, she has received a little over 3 months with Lovenox 1.5 mg/kg subcu daily. Well consider switching to oral Edoxaban (Savaysa) if financially affordable #3 Discussed on a courtesy basis with Dr. Cruz, her mediastinal disease is in remission at this time and without measurable target consolidating response with radiation therapy in the mediastinum only is unlikely to impact survival and therefore not advised. Prophylactic cranial radiation and stage IV disease is not standard but can be considered since patient continues to be in good remission off systemic therapy. Will obtain brain MRI and referral consultation #4 Hyponatremia, resolved with now evidence for fluid retention will continue to hold sodium supplementation and watch sodium level. #5 Seizures secondary to hyponatremia no recurrences patient was weaned off anti-seizure medication by PCP was no recurrences. Seen was her impression and plan discussed and Their questions answered. Follow-up in 1 months Medications: Prescriptions This Visit Medication Instructions Recorded Lidocaine/Prilocaine 30 gm TP DAILY PRN PRN #1 cream..g. 10/07/17 Primary Care Provider: Andrés Helms MD Referring Provider: 03/27/18 0944 <Electronically signed by Gage Huggins MD> Date Gage Huggins MD Cosigner Signature: Date (if applicable) CC: COMPREHENSIVE METABOLIC Collected: 03/27/2018 Status: F Source: [place] PROF[place] 9:42 AM [facility] REPOSITORY Order Comment: Reason for Laboratory Test . TYPE CODE TESTS RESULT OUT OF RANGE REFERENCE UNITS LAB L501.0100 74-106 mg/dL Normal GLU 82 Result Comment: Please note revised GLUCOSE reference range effective 2017. LAB L501.1000 7-18 mg/dL Normal BUN 8 LAB L501.1100 0.55-1.02 mg/dL Normal CREAT,SERUM 0.81 Result Comment: The validity of the calculated GFR AND GFRAA in patients over 70 years has not been determined. Clinical correlation is essential. LAB L501.1110 >60 mL/min Normal EST GFR 77 Result Comment: Non- GFR Calc LAB L501.1115 >60 mL/min Normal EST GFR - AA 93 Result Comment: GFR Calc LAB L501.1255 ml/min Normal Estimated CRCL 70.01 LAB L501.1300 10-20 RATIO Low BUN/CRE 9.9 LAB L501.1500 6.4-8. g/dL Normal 2 T PROT 6.9 LAB L501.1800 3.2-5. g/dL Low 0 ALB 3.1 LAB L501.1950 2.2-4. g/dL Normal 2 GLOB 3.8 LAB L501.2000 0.9-2. RATIO Low 4 A/G 0.8 LAB L501.2200 8.5-10 mg/dL Normal .1 CA 8.7 LAB L501.4100 15-37 U/L Normal AST 18 LAB L501.4305 45-117 U/L Normal ALK P 79 LAB L501.4405 13-56 U/L Normal ALT 21 LAB L501.4600 0.20-1 mg/dL Normal .00 T BILI 0.20 LAB L501.5300 136-14 mmol/L Low 5 NA 134 LAB L501.5600 3.5-5. mmol/L Normal 1 K 4.2 LAB L501.5900 98-107 mmol/L Normal CL 98 LAB L501.6100 21.0-3 mmol/L Normal 2.0 CO2 30.0 LAB L501.6200 5-15 Normal GAP 6 Performed By: #### L500.4050 #### [facility] [place], [address] CBC W/DIFF, AUTOMATED Collected: 03/27/2018 Status: F Source: [place] 8:32 AM [facility] REPOSITORY Order Comment: Reason for Laboratory Test . TYPE CODE TESTS RESULT OUT OF RANGE REFERENCE UNITS LAB L100.1000 4.4-11.0 K/mm3 Low WBC 3.8 LAB L100.1200 4.2-5.4 M/mm3 Low RBC 3.54 LAB L100.1300 12.0-15.0 g/dl Low HGB 11.3 LAB L100.1400 37-47 % Low HCT 34.7 LAB L100.1500 81-99 fL Normal MCV 98.0 LAB L100.1600 27.0-32.0 pg Normal MCH 31.9 LAB L100.1700 32-36 g/gl Normal MCHC 32.6 LAB L100.1810 11.6-14.6 % Normal RDW CV 12.3 LAB L100.1820 35.1-43.9 fl Normal RDW SD 43.9 LAB L100.1900 150-450 K/mm3 Normal PLT 302 LAB L100.2000 6.2-12.0 fl Normal MPV 8.7 LAB L100.2100 47-70 % Normal NEUT% 49.1 LAB L100.2200 19-41 % Normal LY% 30.3 LAB L100.2300 0-10 % High MONO% 12.6 LAB L100.2400 0-5 % High EO% 6.6 LAB L100.2500 0-1 % High BASO% 1.1 LAB L100.2550 0.0-0.9 % Normal IM GRAN % 0.300 Result Comment: IG% - Immature Granulocytes (promyelocytes, myelocytes and metamyelocytes) > 1% indicates that a LEFT SHIFT is Present. LAB L100.2620 2.0-7.7 X10 3/uL Low Absolute Neut 1.9 LAB L100.2720 0.83-4.51 X10 3/ul Normal Absolute Lymph 1.15 Performed By: #### L100.0100 #### [facility] [address] [place], [address] INTERNAL MEDICINE Observed: 03/21/2018 Status: F Source: [place] OFFICE VISIT 8:29 AM [facility] Internal Medicine [address] [place] [address] [place] [address] OFFICE VISIT Date of Service: 03/21/18 MR#: [id number] Acct: [id number] Name: WALI HALL Rep #: [id number] : 1960 Provider: Andrés Helms MD Age/Sex: 57/F Location: [facility] Status: Signed Intake Vital Signs03/21/18 Height 5 ft 6 in 03/21/18 Weight: 157 lb 03/21/18 Body Mass Index (BMI) 25.3 03/21/18 Blood Pressure 105/71 Intake Visit Reasons: 3 MO F/U Chief Complaint: 3 mo FU Is patient in pain?: No Allergies No Known Allergies Allergy (Verified 03/21/18 08:00) Medications Lidocaine/Prilocaine [Lidocaine-Prilocaine Cream] 30 gm TP DAILY PRN PRN #1 cream..g. 10/07/17 [Rx Confirmed 03/21/18] Ondansetron HCl [Zofran] 8 mg PO Q8H PRN PRN #30 tab 10/07/17 [Rx Confirmed 03/21/18] levetiracetam 750 mg tablet 750 mg PO Q12H #90 tab 10/22/17 [Rx Confirmed 03/21/18] Handicap Placards #1 ea 12/20/17 [Rx Confirmed 12/20/17] mirtazapine 15 mg tablet 15 mg PO QHS 30 Days #30 tab 02/12/18 [Rx Confirmed 03/21/18] Enoxaparin Sodium [Lovenox] 100 mg SQ DAILY #90 syringe 02/17/18 [Rx Confirmed 03/21/18] PFSH Medical History Blood clot in vein (Acute) Small cell lung cancer in adult (Chronic) Seizure disorder (Chronic) Tobacco dependence in remission (Chronic) Hyponatremia (Chronic) Surgical History H/O breast augmentation (Acute) History of carpal tunnel release (Acute) History of tubal ligation (Acute) hammer toe repair (Acute) med port placement (Acute) Family History Mother Breast cancer Father Cancer brain and lung Sister Aneurysm Social History Smoking Status: Former smoker quit date: 08/10/17 pack-years: 80 how long ago did patient quit smokin alcohol intake: current alcohol intake frequency: a few times a month what type of physical activity do you participate in: none HPI HPI Chief Complaint: 3 mo FU Details: WALI HALL, is a 57yo F who presents to the office today for follow-up. He has no acute complaints at this time. She follows up with the oncology group due to history of small cell lung cancer and is currently in remission. Hyponatremia has resolved and she has been taking off of salt tablets. Last seizure episode was said to be around October. ROS Const Constitutional: No chills, fatigue, fever(s), frequent falls, malaise, weakness, sleep problems or change in appetite Eyes Eyes: No blurry vision, change in vision, double vision, discharge or visual disturbances ENT ENT: No abnormal hearing, ear pain, ear pressure, tinnitus or dizziness/vertigo Resp Respiratory: No cough, shortness of breath or wheezing Cardio Cardiology: No chest pain at rest, chest pain with exertion, shortness of breath, dyspnea on exertion, generalized swelling, irregular heart rhythm, lightheadedness, orthopnea, fast heart rate or palpitations Gastro GI: No abdominal pain, change in bowel habits, constipation, diarrhea, nausea/dyspepsia or vomiting Genitourinary-Female: No difficulty urinating, burning urination, painful urination, urinary incontinence, urinary frequency, urinary urgency, urinary hesitancy, urinary retention, Frequent nighttime urination/ nocturia, sexual problems, genital lesions, abnormal vaginal bleeding, pelvic pain, vaginal dryness, vaginal odor or Vaginal Itching Musc Musculoskeletal: No joint pain, back pain, joint swelling, limited range of motion, numbness, tingling or muscle weakness Skin Skin: No change in skin color, itching, rash or wounds Breast Breast: No breast lump or breast pain Neuro Neurology: No frequent falls, weakness, abnormal hearing, numbness, tingling, unsteady gait/balance, dizziness, loss of vision, memory loss or visual disturbances Psych Psychiatric: No memory loss, No anxiety, No change in appetite, No depression, No Thoughts of harming yourself/Others Endo Endocrine: No fatigue, heat intolerance, increased thirst/drinking, increased hunger or increased urination Aller/Imm Allergy/Immunologic: No wheezing, itchy eyes or seasonal allergy symptoms Patrice/Lymp Hematologic/Lymphatic: No easy bleeding, easy bruising or enlarged lymph nodes Exam Const General: cooperative, no acute distress Orientation: alert, awake, oriented x3 HENMT Head: atraumatic, normocephalic Ears: hearing grossly normal bilaterally Resp Effort AND Inspection: normal respiratory effort, able to speak in complete sentences Auscultation: Bilateral: Clear to Auscultation Cardio Rate: regular rate Rhythm: regular rhythm Heart Sounds: S1 normal, S2 normal GI Palpation: soft, no hepatosplenomegaly Musc Musculoskeletal: No muscle weakness Neuro General: alert, awake, oriented x3, moves all extremities, CN's II-XI intact bilaterally Extrem General: no clubbing, cyanosis or edema Psych Appearance: grossly normal Mood: congruent mood Affect: normal affect Assessment AND Plan 1. Small cell lung cancer in adult C34.90 Plan Now said to be in remission. Continue follow-up with oncology. Next appointment on 27 March 2. Seizure disorder G40.909 Plan No further episodes since October. Now in remission, I believe it is okay to taper off Keppra. Advised to taper it off over the next month. Will follow 3. Hyponatremia E87.1 Plan Resolved. Last serum sodium was 141. Now off sodium tabs. Repeat labs next week. Will follow 4. Pulmonary embolism I26.99 Plan Management per oncology. Currently on Lovenox. This note was generated with [employer] dictation software. It may contain incorrect words, spelling, and punctuation that were not noted in checking the note before signing. Coding Level of Care Code Off vis,est,level 3 Diagnoses Small cell lung cancer in adult C34.90 Seizure disorder G40.909 Hyponatremia E87.1 Pulmonary embolism I26.99 03/21/18 0829 <Electronically signed by Andrés Helms MD> Date Andrés Helms MD Cosigner Signature: Date (if applicable) CC: ABDOMEN WITH IV Observed: 03/04/2018 Status: F Source: [place] CONTRAST 6:41 AM [facility] REPOSITORY [facility] Imaging Services [address] [place] [address] Abdomen WITH IV Contrast MR#: [id number] Acct: [id number] Name: WALI HALL Rep #: [id number] : 1960 F 57 From: Ilya Elliott MD PCP: Andrés Helms MD Status: REG CLI Study: Abdomen WITH IV Contrast Date of Exam: 03/04/18 Exam# [id number] Ordering Dr: Gage Huggins MD STUDY: CT ABDOMEN WITH CONTRAST REASON FOR EXAM: Female, 57 years old. The patient as a history of lung cancer. RADIATION DOSAGE (If Supplied By Facility): CTDIvol = ( 13.49 ) mGy, DLP = ( 879.75 ) mGycm TECHNIQUE: Transaxial images were obtained post I.V. administration of 100 ml of Isovue 300 contrast, and without oral contrast. Sagittal and coronal images were reconstructed. Individualized dose optimization techniques were used for this CT. COMPARISON: Comparison is made with prior examination dated January 14, 2018. FINDINGS: Right breast prosthesis. There is calcification of the anterior rim of the prosthesis. This is unchanged. Minimal scarring at the lung bases. The visualized portions of the heart are within normal limits. Normal liver. Normal gallbladder and extrahepatic biliary system. There are multiple benign calcified granulomata of the spleen. Normal pancreas. Normal bilateral adrenal glands. Normal right kidney. Normal left kidney. Retroaortic left renal vein. Normal visualized stomach. Normal small intestine. Normal colon. The appendix is visualized and appears normal. There is scattered atherosclerotic calcification of the abdominal aorta, without a demonstrated aneurysm. Normal inferior vena cava. Normal retroperitoneum. Multiple small subcutaneous nodules are seen in the subcutaneous tissues in the lower anterior abdominal wall. There are mild degenerative changes of the visualized lumbar spine. Degenerative changes of the sacroiliac joints bilaterally. CT/Abdomen WITH IV Contrast IMPRESSION: Stable examination. There is no evidence of metastatic disease. Electronically Signed: Ilya Elliott MD at 9:04 EDT Tel [phone], Service support , CC: Andrés Helms MD; Gage Huggins MD Coal Gasification Technician: Signed CHEST WITH CONTRAST Observed: 03/04/2018 Status: F Source: [place] 6:41 AM [facility] REPOSITORY [facility] Imaging Services [address] [place] [address] Chest WITH Contrast MR#: [id number] Acct: [id number] Name: WALI HALL Rep #: [id number] : 1960 F 57 From: Ilya Elliott MD PCP: Andrés Helms MD Status: REG CLI Study: Chest WITH Contrast Date of Exam: 03/04/18 Exam# [id number] Ordering Dr: Gage Huggins MD STUDY: CT CHEST WITHOUT CONTRAST REASON FOR EXAM: Female, 57 years old. History of lung cancer. RADIATION DOSAGE (If Supplied By Facility): CTDIvol = ( 13.49 ) mGy, DLP = ( 879.75 ) mGycm TECHNIQUE: Transaxial imaging was performed without the administration of intravenous contrast material. Multiplanar coronal and sagittal images were reformatted. Individualized dose optimization techniques were used for this CT. COMPARISON: Comparison is made with prior study dated January 14, 2018. FINDINGS: Stable appearance of the bilateral breast prostheses with calcification along the anterior aspects of both prostheses more prominent on the right side. A right-sided portacatheter is seen. Stable appearance of the emphysematous changes with small bullous changes worse in the upper lobes. Minimal scarring in the lung apices. There is no demonstrated pleural abnormality. Normal heart and pericardium. There are multiple small lymph nodes within the mediastinum, which are normal in size and morphology most compatible with reactive lymph hyperplasia. Normal hilar regions. Normal unenhanced pulmonary arteries. Normal aorta arch and descending thoracic aorta. There are multi-level degenerative changes of the thoracic spine. Loss of height of the mid and lower dorsal vertebrae. There is no demonstrated abnormality of the visualized upper abdomen. CT/Chest WITH Contrast IMPRESSION: Stable examination. Electronically Signed: Ilya Elliott MD at 9:07 EDT Tel [phone], Service support , CC: Andrés Helms MD; Gage Huggins MD Coal Gasification Technician: Signed ONCOLOGY VISIT REPORT Observed: 02/17/2018 Status: F Source: [place] 9:13 AM [facility] Medical Oncology [address] [place] [address] OFFICE VISIT Date of Service: 02/17/1806 MR#: [id number] Acct: [id number] Name: WALI HALL Rep #: [id number] : 1960 From: Gage Huggins MD Age/Sex: 57/F Location: OMD Status: Signed - Problem List (1) Small cell lung cancer in adult Status: Chronic (2) Seizure disorder Status: Chronic (3) Hyponatremia Status: Chronic (4) Chemotherapy induced neutropenia Status: Acute (5) Lung nodule, multiple Status: Chronic (6) Regional lymph node metastasis present Status: Chronic (7) Anemia Status: Chronic - Date of Service Date of Service:: 02/17/18 - Chief Complaint Lung cancer - History of Present Illness Patient is a 57-year-old female smoker till the diagnosis of cancer was made who presented in late 2017 following a seizure and found to have a low sodium. Further workup in August 2017 included CAT scan of the chest, PET scan, and bone scan showed mediastinal and right hilar adenopathy, multiple bilateral lung nodules too small to further characterize on PET, questionable thoracic vertebral lesion (seen on CT but PET and bone scan did not suggest metastatic disease close). EBUS in September 2017 biopsy confirmed small cell lung cancer. Brain imaging did not show metastatic disease in the [employer]. Patient was initially seen by Dr. Moses and was prescribed cisplatin-irinotecan (received 2 cycles September - October 2017) for the goal of palliation plus or minus modest survival advantage for stage IV disease. She has tolerated this therapy with expected side effects and mostly troubled with GI toxicities. November 2017 she was hospitalized with bilateral pulmonary embolism and was started on Lovenox. 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 Denies: Fever, Sweats, Weight loss, Appetite change, Chills Cardiovascular:: Reports: Peripheral edema. Denies: Chest pain, Palpitations, Dyspnea on exertion, Orthopnea, PND, Shortness of breath Respiratory: Reports: Cough - Minimal was clear sputum. Denies: Hemoptysis, Shortness of Breath, Wheezing Gastrointestinal:: Reports: Diarrhea - Occasional manageable. Denies: Abdominal pain, Nausea, Vomiting, Constipation, Hematochezia Genitourinary: Denies: Dysuria, Hematuria, 15, Flank pain Musculoskeletal:: Denies: Back pain, Myalgia, Arthralgia Skin: Denies: Rash, Skin Changes, Wounds Neurological:: Denies: Headache, Dizziness, Visual changes, Tinnitus, Hearing loss Psychiatric: Denies: Anxiety, Depression, Homicidal Ideations, Suicidal Ideations Vital Signs Height 5 ft 6 in Weight: 71.668 kg Weight in Pounds 158.0 lbs Pulse Ox 97 - Physical Exam General: Alert, Oriented x3, No apparent distress, - - ECOG 1 HEENT: Atraumatic, PERRLA, EOMI, Normocephalic Oropharynx:: Dry mucosa Neck:: Supple, Trachea midline, - - Port okay. Negative for: JVD, bilateral Cardiac:: Regular rate, Regular rhythm, Normal S1, Normal S2. Negative for: Murmur Lungs: Clear to auscultation, Diminished, Excusion symmetrical. Negative for: Rhonchi, Wheezes Abdomen:: Soft, Non-tender, Non-distended. Negative for: Hepatosplenomegaly Extremities:: Edema - 1+ edema lower extremities. Negative for: Cyanosis Neurological: Neuro grossly intact Skin:: Negative for: Lesions, Rash, Petechiae, Ecchymosis Psychiatric:: Appropriate affect, Euthymic Lymphatics:: Negative for: Cervical lymphadenopathy, Supraclavicular lymphadenopathy, Axillary lymphadenopathy Laboratory Data: Laboratory Tests WBC 4.2 L (4.4-11.0) K/mm3 RBC 3.08 L (4.2-5.4) M/mm3 Hgb 10.7 L (12.0-15.0) g/dl Hct 32.3 L (37-47) % Assessment and Plan 57-year-old female with 1- Small cell lung cancer metastatic to right hilar and mediastinal lymph nodes with indeterminate bilateral multiple pulmonary nodules (some nodules are calcified and consistent with granulomas, others are noncalcified and most likely represent metastatic disease). Clinically stage IV at presentation which was with altered mental status, seizures secondary to hyponatremia. Patient has had no recurrent seizures on antiseizure medication (under the care of PCP) and sodium replacement. She was initially treated under the care of Dr. Salazar with standard cisplatin Irenotecan and disease appears to have responded in the mediastinum and stable and the lungs after 2 cycles of therapy. However patient has had side effects impacting her quality of life (mainly metallic taste, diarrhea and fatigue) and therefore treatment was changed to carboplatin etoposide and she received further 2 cycles and disease remains stable. Toxicity from this line of therapy was mainly bone marrow and symptomatic anemia. 2- Developed malignancy induced hypercoagulability with bilateral pulmonary embolism November 2017, on Lovenox since. 3-anemia of cancer and chemotherapy becoming, symptomatic but patient did not consent for supportive transfusions unless absolutely necessary. 4-lower extremities edema, secondary to salt and fluid retention Recommendations: #1 Take a holiday from [place] based systemic chemotherapy to resume systemic therapy when the disease relapses (expected from the natural history of metastatic disease). Reassessment of disease status in [address] chest and abdomen. #2 Long-term secondary prophylaxis with anticoagulant, for at least the first 3 months favor Lovenox 1.5 mg/kg subcu daily. After 3 months may consider switching to an oral agent. Cost of Lovenox co-pays reported to be affordable by the patient and her . #3 Discussed on a courtesy basis with Dr. Cruz, her mediastinal disease is in remission at this time and without measurable target consolidating response with radiation therapy in the mediastinum only is unlikely to impact survival and therefore not advised. Prophylactic cranial radiation and stage IV disease is not standard but can be considered in the future if the patient continues to be in good remission off systemic therapy. Will revisit after the upcoming scans in 2 months #4 Hyponatremia, resolved with now evidence for fluid retention will hold sodium supplementation and watch sodium level. Seen was her impression and plan discussed and Their questions answered. Follow-up in 1 months with reimaging of the chest and abdomen. Medications: Prescriptions This Visit Medication Instructions Recorded Lidocaine/Prilocaine 30 gm TP DAILY PRN PRN #1 cream..g. 10/07/17 Primary Care Provider: Andrés Helms MD Referring Provider: 02/17/18 0913 <Electronically signed by Gage Huggins MD> Date Gage Huggins MD Cosigner Signature: Date (if applicable) CC: Andrés Helms MD CBC W/DIFF, AUTOMATED Collected: 02/17/2018 Status: F Source: [place] 8:14 AM [facility] REPOSITORY Order Comment: Reason for Laboratory Test . TYPE CODE TESTS RESULT OUT OF RANGE REFERENCE UNITS LAB L100.1000 4.4-11.0 K/mm3 Low WBC 4.2 LAB L100.1200 4.2-5.4 M/mm3 Low RBC 3.08 LAB L100.1300 12.0-15.0 g/dl Low HGB 10.7 LAB L100.1400 37-47 % Low HCT 32.3 LAB L100.1500 81-99 fL High MCV 104.9 LAB L100.1600 27.0-32.0 pg High MCH 34.7 LAB L100.1700 32-36 g/gl Normal MCHC 33.1 LAB L100.1810 11.6-14.6 % Normal RDW CV 12.8 LAB L100.1820 35.1-43.9 fl High RDW SD 46.9 LAB L100.1900 150-450 K/mm3 Normal PLT 220 LAB L100.2000 6.2-12.0 fl Normal MPV 9.0 LAB L100.2100 47-70 % Low NEUT% 38.3 LAB L100.2200 19-41 % Normal LY% 34.4 LAB L100.2300 0-10 % High MONO% 12.2 LAB L100.2400 0-5 % High EO% 13.9 LAB L100.2500 0-1 % Normal BASO% 1.0 LAB L100.2550 0.0-0.9 % Normal IM GRAN % 0.200 Result Comment: IG% - Immature Granulocytes (promyelocytes, myelocytes and metamyelocytes) > 1% indicates that a LEFT SHIFT is Present. LAB L100.2620 2.0-7.7 X10 3/uL Low Absolute Neut 1.6 LAB L100.2720 0.83-4.51 X10 3/ul Normal Absolute Lymph 1.44 Performed By: #### L100.0100 #### [facility] [address] [place], [address] COMPREHENSIVE METABOLIC Collected: 02/17/2018 Status: F [facility] REPOSITORY Order Comment: Reason for Laboratory Test . TYPE CODE TESTS RESULT OUT OF RANGE REFERENCE UNITS LAB L501.0100 74-106 mg/dL Normal GLU 89 Result Comment: Please note revised GLUCOSE reference range effective 2017. LAB L501.1000 7-18 mg/dL Normal BUN 13 LAB L501.1100 0.55-1.02 mg/dL Normal CREAT,SERUM 0.79 Result Comment: The validity of the calculated GFR AND GFRAA in patients over 70 years has not been determined. Clinical correlation is essential. LAB L501.1110 >60 mL/min Normal EST GFR 79 Result Comment: Non- GFR Calc LAB L501.1115 >60 mL/min Normal EST GFR - AA 96 Result Comment: GFR Calc LAB L501.1255 ml/min Normal Estimated CRCL 71.78 LAB L501.1300 10-20 RATIO Normal BUN/CRE 16.5 LAB L501.1500 6.4-8. g/dL Normal 2 T PROT 6.5 LAB L501.1800 3.2-5. g/dL Normal 0 ALB 3.2 LAB L501.1950 2.2-4. g/dL Normal 2 GLOB 3.3 LAB L501.2000 0.9-2. RATIO Normal 4 A/G 1.0 LAB L501.2200 8.5-10 mg/dL Normal .1 CA 8.5 LAB L501.4100 15-37 U/L Normal AST 29 LAB L501.4305 45-117 U/L Normal ALK P 85 LAB L501.4405 13-56 U/L Normal ALT 35 LAB L501.4600 0.20-1 mg/dL Normal .00 T BILI 0.50 LAB L501.5300 136-14 mmol/L Normal 5 NA 141 LAB L501.5600 3.5-5. mmol/L Normal 1 K 4.1 LAB L501.5900 98-107 mmol/L High CL 108 LAB L501.6100 21.0-3 mmol/L Normal 2.0 CO2 27.0 LAB L501.6200 5-15 Normal GAP 6 Performed By: #### L500.4050 #### [facility] [address] [facility] [place], [address] DOWNTIME REPORT Observed: 02/06/2018 Status: F Source: [place] 12:04 PM [facility] REPOSITORY [facility] Medical Records Department [address] [place] [address] Downtime Report MR#: [id number] Acct: [id number] Name: WALI HALL Rep #: [id number] : 1960 57 From: Kyle Carroll PCP: Andrés Helms MD Status: REG RCR This patient was seen during an EMR downtime January 20, 2018 - January 27, 2018. This patient may have a combination of paper and electronic documentation or all paper documentation. All documentation is viewable within the e-chart portion of [facility] for each patient visit. ONCOLOGY VISIT REPORT Observed: 01/28/2018 Status: F Source: [place] 3:35 PM [facility] REPOSITORY [facility] [place] [address] OFFICE VISIT Date of Service: 01/28/18 1517 MR#: [id number] Acct: [id number] Name: WALI HALL Rep #: [id number] : 1960 From: Gage Huggins MD Age/Sex: 57/F Location: ONC Status: Signed - Problem List (1) Small cell lung cancer in adult Status: Chronic (2) Seizure disorder Status: Chronic (3) Hyponatremia Status: Chronic (4) Chemotherapy induced neutropenia Status: Acute (5) Lung nodule, multiple Status: Chronic (6) Regional lymph node metastasis present Status: Chronic (7) Anemia Status: Chronic - Date of Service Date of Service:: 01/21/18 - Chief Complaint Lung cancer - History of Present Illness Patient is a 57-year-old female smoker till the diagnosis of cancer was made who presented in late 2017 following a seizure and found to have a low sodium. Further workup in August 2017 included CAT scan of the chest, PET scan, and bone scan showed mediastinal and right hilar adenopathy, multiple bilateral lung nodules too small to further characterize on PET, questionable thoracic vertebral lesion (seen on CT but PET and bone scan did not suggest metastatic disease close). EBUS in September 2017 biopsy confirmed small cell lung cancer. Brain imaging did not show metastatic disease in the [employer]. Patient was initially seen by Dr. Mosse and was prescribed cisplatin-irinotecan (received 2 cycles September - October 2017) for the goal of palliation plus or minus modest survival advantage for stage IV disease. She has tolerated this therapy with expected side effects and mostly troubled with GI toxicities. November 2017 she was hospitalized with bilateral pulmonary embolism and was started on Lovenox. 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 Denies: Fever, Sweats, Weight loss, Appetite change, Chills Cardiovascular:: Reports: Dyspnea on exertion. Denies: Chest pain, Palpitations, Orthopnea, PND, Shortness of breath Respiratory: Reports: Shortness of breath upon exertion. Denies: Cough, Hemoptysis, Shortness of Breath, Wheezing Gastrointestinal:: Denies: Abdominal pain, Nausea, Vomiting, Diarrhea, Constipation, Hematochezia Genitourinary: Denies: Dysuria, Hematuria, 15, Flank pain Musculoskeletal:: Denies: Back pain, Myalgia, Arthralgia Skin: Reports: - - Easy bruising. Denies: Rash, Skin Changes, Wounds Neurological:: Denies: Headache, Dizziness, Visual changes, Tinnitus, Hearing loss Psychiatric: Denies: Anxiety, Depression, Homicidal Ideations, Suicidal Ideations Vital Signs Height 5 ft 6 in Weight: 69.4 kg Weight in Pounds 153.0 lbs Pulse Ox 100 - Physical Exam General: Alert, Oriented x3, No apparent distress, - - ECOG 2 HEENT: Atraumatic, PERRLA, EOMI, Normocephalic Oropharynx:: Dry mucosa Neck:: Supple, Trachea midline. Negative for: JVD, bilateral Cardiac:: Regular rate, Regular rhythm, Normal S1, Normal S2. Negative for: Murmur Lungs: Clear to auscultation, Diminished, Excusion symmetrical. Negative for: Rhonchi, Wheezes Abdomen:: Soft, Non-tender, Non-distended. Negative for: Hepatosplenomegaly Extremities:: Negative for: Cyanosis, Edema Neurological: Neuro grossly intact Skin:: Ecchymosis - Abdominal wall, sites of Lovenox injections. Negative for: Lesions, Rash, Petechiae Psychiatric:: Appropriate affect, Euthymic Lymphatics:: Negative for: Cervical lymphadenopathy, Supraclavicular lymphadenopathy Laboratory Data: Laboratory Tests WBC 3.7 L (4.4-11.0) K/mm3 RBC 2.25 L (4.2-5.4) M/mm3 Hgb 8.0 L (12.0-15.0) g/dl Hct 24.2 L (37-47) % MCV 107.6 H (81-99) fL Diagnostic Data: CT scan of the chest January 14, 2018: Stable mild emphysema. Stable small pulmonary nodules measuring up to 4 mm. No new nodules or masses. Stable evidence of prior granulomatous disease. CT scan of the abdomen January 14, 2018: No evidence of intra-abdominal metastatic disease Assessment and Plan 57-year-old female with 1- Small cell lung cancer metastatic to right hilar and mediastinal lymph nodes with indeterminate bilateral multiple pulmonary nodules (some nodules are calcified and consistent with granulomas, others are noncalcified and most likely represent metastatic disease). Clinically stage IV at presentation which was with altered mental status, seizures secondary to hyponatremia. Patient has had no recurrent seizures on antiseizure medication (under the care of PCP). She was initially treated under the care of Dr. Salazar with standard cisplatin Irenotecan and disease appears to have responded in the mediastinum and stable and the lungs after 2 cycles of therapy. However patient has had side effects impacting her quality of life (mainly metallic taste, diarrhea and fatigue) and therefore treatment was changed to carboplatin etoposide and she received further 2 cycles and disease remains stable. Toxicity from this line of therapy was mainly bone marrow and symptomatic anemia. 2- Developed malignancy induced hypercoagulability with bilateral pulmonary embolism November 2017, on Lovenox since. 3-anemia of cancer and chemotherapy becoming, symptomatic but patient did not consent for supportive transfusions unless absolutely necessary. Recommendations: #1 Take a holiday from [place] based systemic chemotherapy to resume systemic therapy when the disease relapses (expected from the natural history of metastatic disease). #2 Long-term secondary prophylaxis with anticoagulant, for at least the first 3 months favor Lovenox 1.5 mg/kg subcu daily. After 3 months may consider switching to an oral agent. Cost of Lovenox co-pays reported to be affordable by the patient and her . #3 Discussed on a courtesy basis with Dr. Cruz, her mediastinal disease is in remission at this time and without measurable target consolidating response with radiation therapy in the mediastinum only is unlikely to impact survival and therefore not advised. Prophylactic cranial radiation and stage IV disease is not standard but can be considered in the future if the patient continues to be in good remission off systemic therapy. Will revisit after the upcoming scans in 2 months Seen was her impression and plan discussed and Their questions answered. Follow-up in 2 months with reimaging of the chest and abdomen and brain MRI. Medications: Prescriptions This Visit Medication Instructions Recorded Lidocaine/Prilocaine 30 gm TP DAILY PRN PRN #1 cream..g. 10/07/17 [Lidocaine-Prilocaine Cream] Primary Care Provider: Andrés Helms MD Referring Provider: 01/28/18 1535 <Electronically signed by Gage Huggins MD> Date Gage Huggins MD Cosigner Signature: Date (if applicable) CC: Andrés Helms MD CBC W/DIFF, AUTOMATED Collected: 01/21/2018 Status: F Source: [place] 10:00 AM [facility] REPOSITORY Order Comment: RESULT(S) PREVIOUSLY REPORTED ON MANUAL REQUISITION DURING DOWNTIME. TYPE CODE TESTS RESULT OUT OF RANGE REFERENCE UNITS LAB L100.1000 4.4-11.0 K/mm3 Low WBC 3.7 LAB L100.1200 4.2-5.4 M/mm3 Low RBC 2.25 LAB L100.1300 12.0-15.0 g/dl Low HGB 8.0 LAB L100.1400 37-47 % Low HCT 24.2 LAB L100.1500 81-99 fL High MCV 107.6 LAB L100.1600 27.0-32.0 pg High MCH 35.6 LAB L100.1700 32-36 g/gl Normal MCHC 33.1 LAB L100.1810 11.6-14.6 % High RDW CV 18.6 LAB L100.1820 35.1-43.9 fl High RDW SD 67.7 LAB L100.1900 150-450 K/mm3 Normal PLT 401 LAB L100.2000 6.2-12.0 fl Normal MPV 9.5 LAB L100.2100 47-70 % Low NEUT% 39.1 LAB L100.2200 19-41 % Normal LY% 37.8 LAB L100.2300 0-10 % High MONO% 18.8 LAB L100.2400 0-5 % Normal EO% 1.9 LAB L100.2500 0-1 % Normal BASO% 0.8 LAB L100.2550 0.0-0.9 % High IM GRAN % 1.600 Result Comment: IG% - Immature Granulocytes (promyelocytes, myelocytes and metamyelocytes) > 1% indicates that a LEFT SHIFT is Present. LAB L100.2620 2.0-7.7 X10 3/uL Low Absolute Neut 1.5 LAB L100.2720 0.83-4.51 X10 3/ul Normal Absolute Lymph 1.41 LAB L100.4500 Normal SMEAR COMMENT SCANNED Result Comment: 1+ ANISOCYTOSIS Performed By: #### L100.0100 #### [facility] [address] [place], [place], [address] COMPREHENSIVE METABOLIC Collected: 01/21/2018 Status: F Source: [facility] 10:00 AM [facility] REPOSITORY Order Comment: RESULT(S) PREVIOUSLY REPORTED ON MANUAL REQUISITION DURING DOWNTIME. TYPE CODE TESTS RESULT OUT OF RANGE REFERENCE UNITS LAB L501.0100 74-106 mg/dL Normal GLU 101 Result Comment: Fasting Glucose result from 100 to 125 mg/dL suggests IMPAIRED HOMEOSTASIS per A.D.A. criteria. Please note revised GLUCOSE reference range effective 2017. LAB L501.1000 7-18 mg/dL Normal BUN 12 LAB L501.1100 0.55-1.02 mg/dL Normal CREAT,SERUM 0.84 Result Comment: The validity of the calculated GFR AND GFRAA in patients over 70 years has not been determined. Clinical correlation is essential. LAB L501.1110 >60 mL/min EST GFR Normal 74 LAB L501.1115 >60 mL/min EST GFR Normal - AA 90 LAB L501.1255 ml/min Normal Estimated CRCL 67.51 LAB L501.1300 10-20 RATIO BUN/CRE Normal 14.3 LAB L501.1500 6.4-8.2 g/dL T PROT Normal 6.8 LAB L501.1800 3.2-5.0 g/dL ALB Normal 3.3 LAB L501.1950 2.2-4.2 g/dL GLOB Normal 3.5 LAB L501.2000 0.9-2.4 RATIO A/G Normal 0.9 LAB L501.2200 8.5-10.1 mg/dL CA Normal 8.6 LAB L501.4100 15-37 U/L AST Normal 22 LAB L501.4305 45-117 U/L ALK P Normal 101 LAB L501.4405 13-56 U/L ALT Normal 29 LAB L501.4600 0.20-1.00 mg/dL T BILI Normal 0.30 LAB L501.5300 136-145 mmol/L NA Normal 137 LAB L501.5600 3.5-5.1 mmol/L K Normal 4.2 LAB L501.5900 98-107 mmol/L CL Normal 104 LAB L501.6100 21.0-32.0 mmol/L CO2 Normal 27.0 LAB L501.6200 5-15 GAP Normal 6 Performed By: #### L500.4050 #### [facility] [address] [facility] [place], [address] CHEST WITH CONTRAST Observed: 01/14/2018 Status: F Source: [place] 1:17 PM [facility] REPOSITORY [facility] Imaging Services [address] [place] [address] Chest WITH Contrast MR#: [id number] Acct: [id number] Name: WALI HALL Rep #: [id number] : 1960 F 57 From: Emiliano Coppola MD PCP: Andrés Helms MD Status: REG CLI Study: Chest WITH Contrast Date of Exam: 01/14/18 Exam# [id number] Ordering Dr: Gage Huggins MD STUDY: CT CHEST WITH CONTRAST REASON FOR EXAM: Female, 57 years old. Lung cancer RADIATION DOSAGE (If Supplied By Facility): CTDIvol = ( 7.20 ) mGy, DLP = ( 223.14 ) mGycm TECHNIQUE: Transaxial imaging was performed following intravenous administration of 100 ml of Isovue 300 contrast material. Coronal and sagittal reformatted images were created. Individualized dose optimization techniques were used for this CT. COMPARISON: 12/03/2017 FINDINGS: There are stable mild emphysematous changes noted in the lungs. There are stable calcified granulomata noted in the lungs. There are stable subcentimeter noncalcified pulmonary nodules measuring up to 4 mm. There are no new nodules or masses. There are no pulmonary infiltrates or pleural effusions. There is no pneumothorax. There is a right-sided port with its tip in the superior vena cava. The heart and pericardium are within normal limits. There is no thoracic lymphadenopathy. There are calcified mediastinal and hilar lymph nodes, consistent with prior granulomatous disease. There is no evidence of thoracic aortic aneurysm. There are no destructive osseous lesions. CT/Chest WITH Contrast IMPRESSION: Stable mild emphysema. Stable small pulmonary nodules measuring up to 4 mm. No new nodules or masses. Stable evidence of prior granulomatous disease. Electronically Signed: Emiliano Coppola, at 17:02 EDT Tel , Service support , CC: Andrés Helms MD; Gage Huggins MD Coal Gasification Technician: Signed ABDOMEN WITH IV Observed: 01/14/2018 Status: F Source: [place] CONTRAST 1:17 PM [facility] REPOSITORY [facility] Imaging Services [address] [place] [id number] Abdomen WITH IV Contrast MR#: [id number] Acct: [id number] Name: WALI HALL Rep #: [id number] : 1960 F 57 From: Emiliano Coppola MD PCP: Andrés Helms MD Status: REG CLI Study: Abdomen WITH IV Contrast Date of Exam: 01/14/18 Exam# [id number] Ordering Dr: Gage Huggins MD STUDY: CT ABDOMEN WITH CONTRAST REASON FOR EXAM: Female, 57 years old. Lung cancer RADIATION DOSAGE (If Supplied By Facility): CTDIvol = ( 7.20 ) mGy, DLP = ( 206.59 ) mGycm TECHNIQUE: Transaxial images were obtained post I.V. administration of 100 ml of Isovue 250 contrast, and without oral contrast. Sagittal and coronal images were reconstructed. Individualized dose optimization techniques were used for this CT. COMPARISON: None. FINDINGS: Normal liver. Normal gallbladder and extrahepatic biliary system. There are multiple benign calcified granulomata of the spleen. Normal pancreas. Normal bilateral adrenal glands. Normal right kidney. Normal left kidney. Normal visualized stomach. Normal small intestine. Normal colon. The appendix is visualized and appears normal. Normal abdominal aorta. Normal inferior vena cava. Normal retroperitoneum. Normal abdominal wall. Normal osseous structures. CT/Abdomen WITH IV Contrast IMPRESSION: No evidence of metastatic disease in the abdomen. Electronically Signed: Emiliano Abdon, at 22:30 EDT Tel , Service support , CC: Andrés Helms MD; Gage Huggins MD Coal Gasification Technician: Signed CBC W/DIFF, AUTOMATED Collected: 01/06/2018 Status: F Source: [place] 1:46 PM [facility] REPOSITORY Order Comment: Reason for Laboratory Test . TYPE CODE TESTS RESULT OUT OF RANGE REFERENCE UNITS LAB L100.1000 4.4-11.0 K/mm3 Normal WBC 5.3 LAB L100.1200 4.2-5.4 M/mm3 Low RBC 2.34 LAB L100.1300 12.0-15.0 g/dl Low HGB 7.7 LAB L100.1400 37-47 % Low HCT 23.3 LAB L100.1500 81-99 fL High MCV 99.6 LAB L100.1600 27.0-32.0 pg High MCH 32.9 LAB L100.1700 32-36 g/gl Normal MCHC 33.0 LAB L100.1810 11.6-14.6 % High RDW CV 17.1 LAB L100.1820 35.1-43.9 fl High RDW SD 61.3 LAB L100.1900 150-450 K/mm3 Normal PLT 204 LAB L100.2000 6.2-12.0 fl Normal MPV 8.7 LAB L100.2100 47-70 % Normal NEUT% 59.2 LAB L100.2200 19-41 % Normal LY% 35.4 LAB L100.2300 0-10 % Normal MONO% 4.0 LAB L100.2400 0-5 % Normal EO% 0.2 LAB L100.2500 0-1 % Normal BASO% 0.6 LAB L100.2550 0.0-0.9 % Normal IM GRAN % 0.600 Result Comment: IG% - Immature Granulocytes (promyelocytes, myelocytes and metamyelocytes) > 1% indicates that a LEFT SHIFT is Present. LAB L100.2620 2.0-7.7 X10 3/uL Normal Absolute Neut 3.2 LAB L100.2720 0.83-4.51 X10 3/ul Normal Absolute Lymph 1.88 LAB L100.5500 ADEQ Normal PLT EST ADEQUATE LAB L100.7300 1+ Normal ANISO Performed By: #### L100.0100 #### [facility]. [facility] [address] IRON+IRON BINDING Collected: 12/30/2017 Status: F Source: [facility] 11:17 AM [facility] REPOSITORY Order Comment: Reason for Laboratory Test . TYPE CODE TESTS RESULT OUT OF RANGE REFERENCE UNITS LAB L503.6075 250-450 ug/dL TIBC Normal 254 LAB L503.6150 50-170 ug/dL Low IRON 44 LAB L503.6250 15.0-55.0 % IRON Normal SATURATION 17.3 Performed By: #### L503.6030, L503.6550 #### [facility] [address] [facility] 8[address] FERRITIN Collected: 12/30/2017 Status: F Source: [place] 11:17 AM [facility] REPOSITORY Order Comment: Reason for Laboratory Test . TYPE CODE TESTS RESULT OUT OF REFERENCE UNITS RANGE LAB L503.6550 8-252 ng/mL High FERRITIN 283 Performed By: #### L503.6030, L503.6550 #### [facility] [address] [place], [place], [address] VITAMIN B12 Collected: 12/30/2017 Status: F Source: [place] 11:17 AM [facility] REPOSITORY Order Comment: Reason for Laboratory Test . TYPE CODE TESTS RESULT OUT OF REFERENCE UNITS RANGE LAB L503.0105 211-911 pg/mL High Vitamin B12 > 2000 Performed By: #### L503.0105 #### [facility] [address] [place], [address] ONCOLOGY VISIT REPORT Observed: 12/30/2017 Status: F Source: [place] 10:03 AM [facility] REPOSITORY [facility] [address] [place] [address] OFFICE VISIT Date of Service: 12/30/17912 MR#: [id number] Acct: [id number] Name: WALI HALL Rep #: [id number] : 1960 From: Gage Huggins MD Age/Sex: 57/F Location: [facility] Status: Signed - Problem List (1) Small cell lung cancer in adult Status: Chronic (2) Seizure disorder Status: Chronic (3) Hyponatremia Status: Chronic (4) Chemotherapy induced neutropenia Status: Acute (5) Lung nodule, multiple Status: Chronic (6) Regional lymph node metastasis present Status: Chronic (7) Anemia Status: Chronic - Date of Service Date of Service:: 12/30/17 - Chief Complaint Lung cancer on treatment - History of Present Illness Patient is a 57-year-old female smoker till the diagnosis of cancer was made who presented in late 2017 following a seizure and found to have a low sodium. Further workup in August 2017 included CAT scan of the chest, PET scan, and bone scan showed mediastinal and right hilar adenopathy, multiple bilateral lung nodules too small to further characterize on PET, questionable thoracic vertebral lesion (seen on CT but PET and bone scan did not suggest metastatic disease close). EBUS in September 2017 biopsy confirmed small cell lung cancer. Brain imaging did not show metastatic disease in the SUG[employer]. Patient was initially seen by Dr. Moses and was prescribed cisplatin-irinotecan (received 2 cycles September - October 2017) for the goal of palliation plus or minus modest survival advantage for stage IV disease. She has tolerated this therapy with expected side effects and mostly troubled with GI toxicities. November 2017 she was hospitalized with bilateral pulmonary embolism and was started on Lovenox. 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 Denies: Fever, Sweats, Weight loss, Chills Cardiovascular:: Reports: Dyspnea on exertion. Denies: Chest pain, Palpitations, Orthopnea, PND, Shortness of breath Respiratory: Reports: Shortness of breath upon exertion. Denies: Cough, Hemoptysis, Shortness of Breath, Wheezing Gastrointestinal:: Denies: Abdominal pain, Nausea, Vomiting, Diarrhea, Constipation, Hematochezia Genitourinary: Denies: Dysuria, Hematuria, 15, Flank pain Musculoskeletal:: Reports: - - Bony pains following Neulasta last 3-4 days. Denies: Back pain, Myalgia, Arthralgia Skin: Denies: Rash, Skin Changes, Wounds Neurological:: Denies: Headache, Dizziness, Visual changes, Tinnitus, Hearing loss Psychiatric: Denies: Anxiety, Depression, Homicidal Ideations, Suicidal Ideations Vital Signs Height 5 ft 6 in Weight: 70 kg Weight in Pounds 154.3 lbs Pulse Ox 100 - Physical Exam General: Alert, Oriented x3, No apparent distress, - - ECOG 1 HEENT: Atraumatic, PERRLA, EOMI, Normocephalic, - - Port [place] Oropharynx:: Dry mucosa Neck:: Supple, Trachea midline. Negative for: JVD, bilateral Cardiac:: Regular rate, Regular rhythm, Normal S1, Normal S2. Negative for: Murmur Lungs: Clear to auscultation, Diminished, Excusion symmetrical. Negative for: Rhonchi, Wheezes Abdomen:: Soft, Non-tender, Non-distended. Negative for: Hepatosplenomegaly Extremities:: Negative for: Cyanosis, Edema Neurological: Neuro grossly intact Skin:: Negative for: Lesions, Rash, Petechiae, Ecchymosis Psychiatric:: Appropriate affect, Euthymic Lymphatics:: Negative for: Cervical lymphadenopathy, Supraclavicular lymphadenopathy Laboratory Data: Reviewed in EMR Assessment and Plan 57-year-old female with 1- Small cell lung cancer metastatic to right hilar and mediastinal lymph nodes with indeterminate bilateral multiple pulmonary nodules. Clinically stage IV at presentation which was with altered mental status, seizures secondary to hyponatremia. Patient has had no recurrent seizures on antiseizure medication (under the care of PCP). She was initially treated under the care of Dr. Salazar with standard cisplatin Irenotecan and disease appears to be stable after 2 cycles of therapy. However patient has had some side effects as expected from this combination that are impacting her quality of life (mainly complaining about metallic taste, diarrhea and fatigue). 2- Developed malignancy induced hypercoagulability with bilateral pulmonary embolism November 2017, on Lovenox since. 3-anemia of cancer and chemotherapy becoming more symptomatic Recommendations: #1 systemic chemotherapy with [place] combination, continue with carboplatin etoposide which subjectively appears to be better tolerated than cisplatin irinotecan as far as the toxicities. Continue to support with antiemetics and Neulasta. #2 Long-term secondary prophylaxis was anticoagulant, for at least the first 3 months favor Lovenox 1.5 mg/kg subcu daily. After 3 months may consider switching to an oral agent. #3 Depending on response, tolerance of treatment and restaging scans following at least 4-6 cycles of systemic therapy (including the initial 2) may consider consolidating response with local radiation therapy consultation. CT imaging due with next visit. #4 Assess for any concomitant iron or B12 deficiency, if confirmed will supplement. Otherwise she may need blood product transfusion if her anemia worsens (depending on symptoms if hemoglobin less than 728 g per DL) benefits and risks of blood transfusion discussed with patient. Seen was her impression and plan discussed and her questions answered. Medications: Prescriptions This Visit Medication Instructions Recorded Lidocaine/Prilocaine 30 gm TP DAILY PRN PRN #1 cream..g. 10/07/17 [Lidocaine-Prilocaine Cream] Primary Care Provider: Andrés Helms MD Referring Provider: 12/30/17 1003 <Electronically signed by Gage Huggins MD> Date Gage Huggins MD Cosigner Signature: Date (if applicable) CC: CBC W/DIFF, AUTOMATED Collected: 12/30/2017 Status: F Source: [place] 9:00 AM [facility] REPOSITORY TYPE CODE TESTS RESULT OUT OF RANGE REFERENCE UNITS LAB L100.1000 4.4-11.0 K/mm3 Normal WBC 4.4 LAB L100.1200 4.2-5.4 M/mm3 Low RBC 2.47 LAB L100.1300 12.0-15.0 g/dl Low HGB 8.2 LAB L100.1400 37-47 % Low HCT 24.5 LAB L100.1500 81-99 fL High MCV 99.2 LAB L100.1600 27.0-32.0 pg High MCH 33.2 LAB L100.1700 32-36 g/gl Normal MCHC 33.5 LAB L100.1810 11.6-14.6 % High RDW CV 17.1 LAB L100.1820 35.1-43.9 fl High RDW SD 59.4 LAB L100.1900 150-450 K/mm3 High PLT 479 LAB L100.2000 6.2-12.0 fl Normal MPV 8.3 LAB L100.2100 47-70 % Normal NEUT% 49.3 LAB L100.2200 19-41 % Normal LY% 26.0 LAB L100.2300 0-10 % High MONO% 21.9 LAB L100.2400 0-5 % Normal EO% 0.5 LAB L100.2500 0-1 % Normal BASO% 0.9 LAB L100.2550 0.0-0.9 % High IM GRAN % 1.400 Result Comment: IG% - Immature Granulocytes (promyelocytes, myelocytes and metamyelocytes) > 1% indicates that a LEFT SHIFT is Present. LAB L100.2620 2.0-7.7 X10 3/uL Normal Absolute Neut 2.2 LAB L100.2720 0.83-4.51 X10 3/ul Normal Absolute Lymph 1.15 Performed By: #### L100.0100 #### [facility] [address] [place], [address] COMPREHENSIVE METABOLIC Collected: 12/30/2017 Status: F Source: [place] 9:00 AM [facility] REPOSITORY TYPE CODE TESTS RESULT OUT OF RANGE REFERENCE UNITS LAB L501.0100 74-106 mg/dL Normal GLU 93 Result Comment: Please note revised GLUCOSE reference range effective 2017. LAB L501.1000 7-18 mg/dL Normal BUN 9 LAB L501.1100 0.55-1.02 mg/dL Normal CREAT,SERUM 0.76 Result Comment: The validity of the calculated GFR AND GFRAA in patients over 70 years has not been determined. Clinical correlation is essential. LAB L501.1110 >60 mL/min Normal EST GFR 83 Result Comment: Non- GFR Calc LAB L501.1115 >60 mL/min Normal EST GFR - AA 100 Result Comment: GFR Calc LAB L501.1255 ml/min Normal Estimated CRCL 74.61 LAB L501.1300 10-20 RATIO Normal BUN/CRE 11.8 LAB L501.1500 6.4-8. g/dL Normal 2 T PROT 7.0 LAB L501.1800 3.2-5. g/dL Low 0 ALB 3.0 LAB L501.1950 2.2-4. g/dL Normal 2 GLOB 4.0 LAB L501.2000 0.9-2. RATIO Low 4 A/G 0.8 LAB L501.2200 8.5-10 mg/dL Normal .1 CA 8.7 LAB L501.4100 15-37 U/L Normal AST 22 LAB L501.4305 45-117 U/L Normal ALK P 86 LAB L501.4405 13-56 U/L Normal ALT 21 LAB L501.4600 0.20-1 mg/dL Normal .00 T BILI 0.20 LAB L501.5300 136-14 mmol/L Normal 5 NA 137 LAB L501.5600 3.5-5. mmol/L Normal 1 K 4.1 LAB L501.5900 98-107 mmol/L Normal CL 103 LAB L501.6100 21.0-3 mmol/L Normal 2.0 CO2 28.0 LAB L501.6200 5-15 Normal GAP 6 Performed By: #### L500.4050 #### [facility] [address] [place], [address] INTERNAL MEDICINE Observed: 12/20/2017 Status: F Source: [place] OFFICE VISIT 1:08 PM [facility] REPOSITORY [facility] [address] [place] [address] [place] [address] OFFICE VISIT Date of Service: 12/20/17 MR#: [id number] Acct: [id number] Name: WALI HALL Rep #: [id number] : 1960 Provider: Andrés Helms MD Age/Sex: 57/F Location: [facility] [place] Status: Signed Intake Vital Signs12/20/17 Height 5 ft 6 in 12/20/17 Weight: 155 lb 12/20/17 Body Mass Index (BMI) 25.0 12/20/17 Blood Pressure 115/74 Intake Visit Reasons: 2 MO FU Chief Complaint: 2 mo check up - Lung cancer Is patient in pain?: No Allergies No Known Allergies Allergy (Verified 12/20/17 08:24) Medications Lidocaine/Prilocaine [Lidocaine-Prilocaine Cream] 30 gm TP DAILY PRN PRN #1 cream..g. 10/07/17 [Rx Confirmed 12/20/17] Ondansetron HCl [Zofran] 8 mg PO Q8H PRN PRN #30 tab 10/07/17 [Rx Confirmed 12/20/17] Sodium Chloride 1 gm PO TID #90 tab 10/11/17 [Rx Confirmed 12/20/17] levetiracetam 750 mg tablet 750 mg PO Q12H #90 tab 10/22/17 [Rx Confirmed 12/20/17] Mirtazapine [Remeron] 15 mg PO QHS 30 Days #30 tab 11/11/17 [Rx Confirmed 12/20/17] Enoxaparin Sodium [Lovenox] 100 mg SQ DAILY #90 syringe 12/05/17 [Rx Confirmed 12/20/17] Handicap Placards #1 ea 12/20/17 [Rx Confirmed 12/20/17] PFSH Medical History Blood clot in vein (Acute) Small cell lung cancer in adult (Chronic) Seizure disorder (Chronic) Tobacco dependence in remission (Chronic) Hyponatremia (Chronic) Surgical History H/O breast augmentation (Acute) History of carpal tunnel release (Acute) History of tubal ligation (Acute) hammer toe repair (Acute) med port placement (Acute) Family History Mother Breast cancer Father Cancer brain and lung Sister Aneurysm Social History Smoking Status: Former smoker quit date: 08/10/17 pack-years: 80 how long ago did patient quit smokin alcohol intake: current alcohol intake frequency: a few times a month what type of physical activity do you participate in: none HPI HPI Chief Complaint: 2 mo check up - Lung cancer Details: WALI HALL, is a 57yo F who presents to the office today for follow up. She is currently undergoing chemotherapy for small cell lung cancer and for the most part has tolerated it well. She does however report significant fatigue and loss of appetite. She was recently admitted to the hospital for bilateral PE and is currently on Lovenox. She denies any bleeding. ROS Const Constitutional: Positive for fatigue; no chills, fever(s), frequent falls, malaise, weakness, sleep problems or change in appetite Eyes Eyes: No blurry vision, change in vision, double vision, discharge or visual disturbances ENT ENT: No abnormal hearing, ear pain, ear pressure, tinnitus or dizziness/vertigo Resp Respiratory: Positive for cough Cough: Yes non-productive; no shortness of breath or wheezing Cardio Cardiology: No chest pain at rest, chest pain with exertion, shortness of breath, dyspnea on exertion, generalized swelling, irregular heart rhythm, lightheadedness, orthopnea, fast heart rate or palpitations Gastro GI: No abdominal pain, change in bowel habits, constipation, diarrhea, nausea/dyspepsia or vomiting Genitourinary-Female: No difficulty urinating, burning urination, painful urination, urinary incontinence, urinary frequency, urinary urgency, urinary hesitancy, urinary retention, Frequent nighttime urination/ nocturia, sexual problems, genital lesions, abnormal vaginal bleeding, pelvic pain, vaginal dryness, vaginal odor or Vaginal Itching Musc Musculoskeletal: No joint pain, back pain, joint swelling, limited range of motion, muscle weakness, numbness or tingling Skin Skin: No change in skin color, itching, rash or wounds Breast Breast: No breast lump or breast pain Neuro Neurology: No frequent falls, weakness, abnormal hearing, numbness, tingling, unsteady gait/balance, dizziness, loss of vision or visual disturbances Psych Psychiatric: No anxiety, No change in appetite, No depression, No Thoughts of harming yourself/Others Endo Endocrine: Positive for fatigue; no heat intolerance, increased thirst/drinking, increased hunger or increased urination Aller/Imm Allergy/Immunologic: No wheezing, itchy eyes or seasonal allergy symptoms Patrice/Lymp Hematologic/Lymphatic: No easy bleeding, easy bruising or enlarged lymph nodes Exam Const General: cooperative, no acute distress Orientation: alert, awake, oriented x3 HENMT Head: atraumatic, normocephalic Ears: hearing grossly normal bilaterally Resp Effort AND Inspection: normal respiratory effort, able to speak in complete sentences Auscultation: Bilateral: Clear to Auscultation Cardio Rate: regular rate Rhythm: regular rhythm Heart Sounds: S1 normal, S2 normal GI Palpation: soft, no hepatosplenomegaly Musc Musculoskeletal: No muscle weakness Neuro General: alert, awake, oriented x3, moves all extremities, CN's II-XI intact bilaterally Extrem General: no clubbing, cyanosis or edema Psych Appearance: grossly normal Mood: congruent mood Affect: normal affect Assessment AND Plan 1. Small cell lung cancer in adult C34.90 Plan Following up with the oncology group and currently undergoing chemotherapy. For the most part has tolerated it well. However reports fatigue and loss of appetite. Not open to pharmacological help. Advised on increased oral intake and exercise as tolerated. Will follow Medications New: 2. 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 Resolved. Continue Na tabs. Will monitor. 3. Seizure disorder G40.909 Plan No further episodes in about 3 - 4 months. Currently on Keppra. Willing to continue until tumor free. 4. Pulmonary embolism I26.99 Plan S/p recent hospital admission. Currently on Lovenox. Continue current management. This note was generated with Shuttersong[employer] software. It may contain incorrect words, spelling, and punctuation that were not noted in checking the note before signing. Plan Detail Follow Up 3 Months Coding Level of Care Code Off vis,est,level 3 Diagnoses Small cell lung cancer in adult C34.90 Hyponatremia E87.1 Seizure disorder G40.909 Pulmonary embolism I26.99 12/20/17 1308 <Electronically signed by Andrés Helms MD> Date Andrés Helms MD Cosigner Signature: Date (if applicable) CC: 12 LEAD ELECTROCARDIOGRAM Observed: 12/09/2017 Status: F Source: [place] 3:20 PM [facility] REPOSITORY [facility] Cardiovascular Services [address] [place] [id number] 12 Lead EKG 12/04/17 0649 MR#: [id number] Acct: [id number] Name: WALI HALL Rep #: [id number] : 1960 57 From: Erik Salmon MD Attending Dr: Pan Boggs Status: DIS IN Ordering Dr: Valentina Harding MD Date: 12/04/17 Location: [facility] Sex: F C Admitted: 12/04/17 Test Reason : SOB Blood Pressure : / mmHG Vent. Rate : 091 BPM Atrial Rate : 091 BPM P-R Int : 172 ms QRS Dur : 080 ms QT Int : 344 ms P-R-T Axes : 078 059 068 degrees QTc Int : 423 ms Normal sinus rhythm Septal DC, age undetermined, cannot be excluded Confirmed by RAMAKRISHNA GONZALEZ, ERIK ([id number]), video news editor MARSHA CARROLL ([id number]) on 12/09/2017 3:20:06 PM Referred By: Denny Moses Confirmed By:ERIK SALMON MD 12/09/17 1520 Date Erik Salmon MD CC: Andrés Helms MD; Pan Boggs; Valentina Harding MD Signed ONCOLOGY VISIT REPORT Observed: 12/09/2017 Status: F Source: [place] 10:46 AM [facility] REPOSITORY [facility] [place] [address] OFFICE VISIT Date of Service: 12/09/17 1006 MR#: [id number] Acct: [id number] Name: WALI HALL Rep #: [id number] : 1960 From: Gage Huggins MD Age/Sex: 57/F Location: [facility] Status: Signed - Problem List (1) Small cell lung cancer in adult Status: Chronic (2) Seizure disorder Status: Chronic (3) Hyponatremia Status: Chronic (4) Chemotherapy induced neutropenia Status: Acute (5) Lung nodule, multiple Status: Chronic (6) Regional lymph node metastasis present Status: Chronic - Date of Service Date of Service:: 12/09/17 - Chief Complaint Lung cancer - History of Present Illness Patient is a 57-year-old female smoker till the diagnosis of cancer was made who presented in late 2017 following a seizure and found to have a low sodium. Further workup in August 2017 included CAT scan of the chest, PET scan, and bone scan showed mediastinal and right hilar adenopathy, multiple bilateral lung nodules too small to further characterize on PET, questionable thoracic vertebral lesion (seen on CT but PET and bone scan did not suggest metastatic disease close). E bus in September 2017 biopsy confirmed small cell lung cancer. Brain imaging did not show metastatic disease in the [employer]. Patient was initially seen by Dr. Moses and was prescribed cisplatin-irinotecan (received 2 cycles September - October 2017) for the goal of palliation plus or minus modest survival advantage for stage IV disease. She has tolerated this therapy with expected side effects and mostly troubled with GI toxicities. November 2017 she was hospitalized with bilateral pulmonary embolism and was started on Lovenox. 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 Denies: Fever, Sweats, Chills Cardiovascular:: Reports: Dyspnea on exertion. Denies: Chest pain, Palpitations, Orthopnea, PND, Shortness of breath Respiratory: Reports: Shortness of breath upon exertion. Denies: Cough, Hemoptysis, Shortness of Breath, Wheezing Gastrointestinal:: Reports: Nausea, Vomiting - Manageable with treatment, Diarrhea - Follows Ireneotecan uses Imodium as needed. Denies: Abdominal pain, Constipation, Hematochezia Genitourinary: Denies: Dysuria, Hematuria, 15, Flank pain Musculoskeletal:: Reports: Back pain - Chronic back pain unchanged. Denies: Myalgia, Arthralgia Skin: Denies: Rash, Skin Changes, Wounds Neurological:: Denies: Headache, Dizziness, Visual changes, Tinnitus, Hearing loss Psychiatric: Denies: Anxiety, Depression, Homicidal Ideations, Suicidal Ideations Vital Signs Height 5 ft 6 in Weight: 70.035 kg Weight in Pounds 154.4 lbs Pulse Ox 97 - Physical Exam General: Alert, Oriented x3, No apparent distress, - - ECOG 2 Tired look but no acute distress HEENT: Atraumatic, PERRLA, EOMI, Normocephalic Oropharynx:: Dry mucosa, - - [place] Neck:: Supple, Trachea midline. Negative for: JVD, bilateral Cardiac:: Regular rate, Regular rhythm, Normal S1, Normal S2. Negative for: Murmur Lungs: Clear to auscultation, Diminished, Excusion symmetrical. Negative for: Rhonchi, Wheezes Abdomen:: Soft, Non-tender, Non-distended. Negative for: Hepatosplenomegaly Extremities:: Negative for: Cyanosis, Edema Neurological: Neuro grossly intact Skin:: Negative for: Lesions, Rash, Petechiae, Ecchymosis Psychiatric:: Appropriate affect, Euthymic Lymphatics:: Negative for: Cervical lymphadenopathy, Supraclavicular lymphadenopathy, Axillary lymphadenopathy Laboratory Data: Laboratory Tests Assessment and Plan 57-year-old female with small cell lung cancer metastatic to right hilar and mediastinal lymph nodes with indeterminate bilateral multiple pulmonary nodules. Clinically stage IV at presentation which was with altered mental status, seizures secondary to hyponatremia. Patient has had no recurrent seizures on antiseizure medication (under the care of PCP). She was initially treated under the care of Dr. Salazar with standard cisplatin Irenotecan and disease appears to be stable after 2 cycles of therapy. However patient has had some side effects as expected from this combination that are impacting her quality of life (mainly complaining about metallic taste, diarrhea and fatigue). Developed malignancy induced hypercoagulability with bilateral pulmonary embolism November 2017. Recommendations: #1 systemic chemotherapy with [place] combination, changing to carboplatin etoposide and reassess if this is better tolerated as far as the toxicities. Continue to support with antiemetics and Neulasta. #2 Long-term secondary prophylaxis was anticoagulant, for at least the first 3 months favor Lovenox 1.5 mg/kg subcu daily. After 3 months may consider switching to an oral agent. #3 Depending on response, tolerance of treatment and restaging scans following at least 4-6 cycles of systemic therapy (including the initial 2) may consider consolidating response with local radiation therapy consultation. A lengthy meeting with the patient and her who came was a long list of questions about quality of life issues and prognosis. I explained to them that the goal of treating stage IV disease is palliation and a modest survival benefit (months not years). A long list of questions about what the couple can do and what they cannot do (for example food, contact with family members, alcohol consumption, intimacy between and ) I explained to them that the advice regarding these are not based on scientific clinical trials but common sense that ensure safety of patient and contacts. They were provided earlier in the teaching session with and [facility] book with some general commonsense advice. I did explain to them that these are based on the authors commonsense advice but not on scientific evidence and if they had any specific questions I would be happy to explain again within my medical knowledge and common sense. Medications: Prescriptions This Visit Medication Instructions Recorded Lidocaine/Prilocaine 30 gm TP DAILY PRN PRN #1 cream..g. 10/07/17 [Lidocaine-Prilocaine Cream] Primary Care Provider: Andrés Helms MD Referring Provider: 12/09/17 4583 <Electronically signed by Gage Huggins MD> Date Victorinohernan Joseluis Bush Signature: Date (if applicable) CC: CBC W/DIFF, AUTOMATED Collected: 12/09/2017 Status: F Source: [place] 8:21 AM [facility] REPOSITORY Order Comment: Reason for Laboratory Test . TYPE CODE TESTS RESULT OUT OF RANGE REFERENCE UNITS LAB L100.1000 4.4-11.0 K/mm3 Normal WBC 8.0 LAB L100.1200 4.2-5.4 M/mm3 Low RBC 2.79 LAB L100.1300 12.0-15.0 g/dl Low HGB 9.3 LAB L100.1400 37-47 % Low HCT 27.2 LAB L100.1500 81-99 fL Normal MCV 97.5 LAB L100.1600 27.0-32.0 pg High MCH 33.3 LAB L100.1700 32-36 g/gl Normal MCHC 34.2 LAB L100.1810 11.6-14.6 % High RDW CV 15.0 LAB L100.1820 35.1-43.9 fl High RDW SD 52.3 LAB L100.1900 150-450 K/mm3 Normal PLT 274 LAB L100.2000 6.2-12.0 fl Normal MPV 8.2 LAB L100.2100 47-70 % Normal NEUT% 66.9 LAB L100.2200 19-41 % Low LY% 15.7 LAB L100.2300 0-10 % High MONO% 15.1 LAB L100.2400 0-5 % Normal EO% 1.1 LAB L100.2500 0-1 % Normal BASO% 0.5 LAB L100.2550 0.0-0.9 % Normal IM GRAN % 0.700 Result Comment: IG% - Immature Granulocytes (promyelocytes, myelocytes and metamyelocytes) > 1% indicates that a LEFT SHIFT is Present. LAB L100.2620 2.0-7.7 X10 3/uL Normal Absolute Neut 5.4 LAB L100.2720 0.83-4.51 X10 3/ul Normal Absolute Lymph 1.26 Performed By: #### L100.0100 #### [facility] [address] [place], [address] COMPREHENSIVE METABOLIC Collected: 12/09/2017 Status: F Source: [place] [facility] 8:21 AM [facility] REPOSITORY Order Comment: Reason for Laboratory Test . TYPE CODE TESTS RESULT OUT OF RANGE REFERENCE UNITS LAB L501.0100 74-106 mg/dL Normal GLU 97 Result Comment: Please note revised GLUCOSE reference range effective 2017. LAB L501.1000 7-18 mg/dL Normal BUN 12 LAB L501.1100 0.55-1.02 mg/dL Normal CREAT,SERUM 0.79 Result Comment: The validity of the calculated GFR AND GFRAA in patients over 70 years has not been determined. Clinical correlation is essential. LAB L501.1110 >60 mL/min Normal EST GFR 79 Result Comment: Non- GFR Calc LAB L501.1115 >60 mL/min Normal EST GFR - AA 95 Result Comment: GFR Calc LAB L501.1255 ml/min Normal Estimated CRCL 71.78 LAB L501.1300 10-20 RATIO Normal BUN/CRE 15.1 LAB L501.1500 6.4-8. g/dL Normal 2 T PROT 6.8 LAB L501.1800 3.2-5. g/dL Low 0 ALB 2.9 LAB L501.1950 2.2-4. g/dL Normal 2 GLOB 3.9 LAB L501.2000 0.9-2. RATIO Low 4 A/G 0.7 LAB L501.2200 8.5-10 mg/dL Normal .1 CA 9.0 LAB L501.4100 15-37 U/L Normal AST 15 LAB L501.4305 45-117 U/L Normal ALK P 96 LAB L501.4405 13-56 U/L Normal ALT 14 LAB L501.4600 0.20-1 mg/dL Normal .00 T BILI 0.50 LAB L501.5300 136-14 mmol/L Normal 5 NA 137 LAB L501.5600 3.5-5. mmol/L Normal 1 K 4.0 LAB L501.5900 98-107 mmol/L Normal CL 105 LAB L501.6100 21.0-3 mmol/L Normal 2.0 CO2 26.0 LAB L501.6200 5-15 Normal GAP 6 Performed By: #### L500.4050, L501.2300, L501.5200 #### [facility] [address] [place], [address] PHOSPHORUS Collected: 12/09/2017 Status: F Source: [place] 8:21 AM [facility] REPOSITORY Order Comment: Reason for Laboratory Test . TYPE CODE TESTS RESULT OUT OF RANGE REFERENCE UNITS LAB L501.2300 2.5-4.9 mg/dL Normal PHOS 3.1 Performed By: #### L500.4050, L501.2300, L501.5200 #### [facility] [address] [facility] [place], [address] MAGNESIUM Collected: 12/09/2017 Status: F Source: [place] 8:21 AM [facility] REPOSITORY Order Comment: Reason for Laboratory Test . TYPE CODE TESTS RESULT OUT OF RANGE REFERENCE UNITS LAB L501.5200 1.6-2.6 mg/dL Normal MG 1.9 Performed By: #### L500.4050, L501.2300, L501.5200 #### [facility] [address] [place], [address] DISCHARGE SUMMARY Observed: 12/05/2017 Status: F Source: [place] 1:02 PM [facility] REPOSITORY [facility] Medical Records Department [address] [place] [id number] Discharge Summary 12/05/17 1257 MR#: [id number] Acct: [id number] Name: WALI HALL Rep #: [id number] : 1960 57 From: Pan Boggs MD PCP: Andrés Helms MD Status: DIS IN Y [id number] Date and Diagnosis Date of Admission: 12/04/17 Date of Discharge: 12/05/17 - Primary Discharge Diagnosis Acute multiple bilateral lower lobes pulmonary emboli. - Secondary Discharge Diagnosis Chronic Problems (Last Updated 12/04/17 @ 08:52 by Pan Boggs MD) Adjustment disorder (Chronic) Small cell lung cancer in adult (Chronic) Seizure disorder (Chronic) Tobacco dependence in remission (Chronic) Hyponatremia (Chronic) Hospital Course and Treatment Operations: None Procedures: None Summary of Care Provided: Patient seen and examined on the day of discharge and appeared to be stable to be discharged home. She remained asymptomatic, no complaints. Vital signs are stable, maintained her pulse ox on room air. - Physical Exam General: Alert, Oriented x3, Cooperative, No apparent distress. HEENT: Atraumatic, PERRLA, EOMI. Neck: Supple, No JVD, Negative Carotid Bruits, Trachea Midline, Thyroid Normal. Lungs: Clear to auscultation, Normal air movement, No rhonchi, No wheeze, No rales. Cardiovascular: Regular rate, Regular Rhythm, Normal S1, Normal S2, PMI Normal. Abdomen: Bowel Sounds Present, Soft, Non Tender, Non-Distended, No Hepato-splenomegaly. Extremities: No clubbing, No cyanosis, No edema Skin: No rashes, No breakdown Neurological: Neuro grossly intact Vital Signs are stable. Hospital course: The patient is a 57 year old F was referred from the cancer center because she was found to have multiple bilateral PEs on CTA chest that was done for follow-up regarding his small cell lung cancer. CTA chest revealed multiple bilateral pulmonary emboli on both right lower lobe artery branches and left lower lobe artery branches. This is considered provoked secondary to lung cancer. Her EKG revealed normal sinus rhythm without evidence of acute ischemic changes or right heart strain. Her troponin was negative. Her routine blood work was unremarkable except for chronic anemia with stable hemoglobin. She has a history of small cell lung cancer currently chemotherapy and her last session of chemotherapy was last week. She was treated with Lovenox 1 mg/kg twice daily. After discussion with , her oncologist, over the phone without official consultation, we agreed to start patient on 1.5 mg/kg of Lovenox daily. Patient discharged home in a stable medical condition, discharged on Lovenox 100 mg subcu daily, continued on her chronic home medication without any changes, plan to follow-up with PCP in 1 week and follow-up with oncology as scheduled. Discharge Activity: Return to Normal Activity Weight Bearing Status: Weight bearing as tolerated Call your doctor if you observe: Fever of 101 or Higher, Shortness of breath, Dizziness, Fainting spells, Chest pain, Increased palpitations (irregular heartbeat), Uncontrolled pain Home Medications: Medications to take at Discharge Lidocaine/Prilocaine [Lidocaine-Prilocaine Cream] 30 gm TP DAILY PRN PRN #1 cream..g. 10/07/17 Ondansetron HCl [Zofran] 8 mg PO Q8H PRN PRN #30 tab 10/07/17 Sodium Chloride 1 gm PO TID #90 tab 10/11/17 levetiracetam 750 mg tablet 750 mg PO Q12H #90 tab 10/22/17 Mirtazapine [Remeron] 15 mg PO QHS 30 Days #30 tab 11/11/17 Enoxaparin Sodium [Lovenox] 100 mg SQ DAILY #90 syringe 12/05/17 Following Prescrptions Were Given to Patient: Enoxaparin Sodium [Lovenox] 100 mg SQ DAILY #90 syringe Primary Care Physician: Andrés Helms MD [Primary Care Provider] - Please follow up with your Primary Care Physician in: 1 week. Please Follow Up With: Gage Huggins MD When: as scheduled. Patient Instructions: Discharge Instructions for Pulmonary Embolism Disposition: Home Minutes spent on discharge:: 26 Patient Condition:: Stable Medical Necessity - Tobacco Use Smoking Status: Former smoker Meaningful Use Info Meaningful Use Diagnoses (Choose all that apply): None applicable Code Visit Inpatient E AND M: 98107 Disch Hosp 12/05/17 1302 <Electronically signed by Pan Boggs MD> Date Pan Boggs MD Cosigner Signature (if applicable): Date CC: Andrés Helms MD; Pan Boggs; Gage Huggins MD Signed DISCHARGE INSTRUCTION Observed: 12/05/2017 Status: F Source: [place] 8:11 AM [facility] REPOSITORY [facility] Medical Records Department [address] [place] [address] Instructions for Home/Discharge Instructions 12/05/17809 MR#: [id number] Acct: [id number] Name: WALI HALL Rep #: [id number] : 1960 57 From: Pan Boggs MD PCP: Andrés Helms MD Status: ADM IN You will use the following diet at home:: Regular Your food should be the consistency of: Regular Discharge Activity: Return to Normal Activity Weight Bearing Status: Weight bearing as tolerated Call your doctor if you observe: Fever of 101 or Higher, Shortness of breath, Dizziness, Fainting spells, Chest pain, Increased palpitations (irregular heartbeat), Uncontrolled pain Instructions: Discharge Instructions for Pulmonary Embolism Allergies/Adverse Reactions: Allergies No Known Allergies Allergy (Verified 11/25/17 09:46) Medications to take at Discharge Lidocaine/Prilocaine [Lidocaine-Prilocaine Cream] 30 gm TP DAILY PRN PRN #1 cream..g. 10/07/17 Ondansetron HCl [Zofran] 8 mg PO Q8H PRN PRN #30 tab 10/07/17 Sodium Chloride 1 gm PO TID #90 tab 10/11/17 levetiracetam 750 mg tablet 750 mg PO Q12H #90 tab 10/22/17 Mirtazapine [Remeron] 15 mg PO QHS 30 Days #30 tab 11/11/17 Enoxaparin Sodium [Lovenox] 100 mg SQ DAILY #90 syringe 12/05/17 The following prescriptions were given: Enoxaparin Sodium [Lovenox] 100 mg SQ DAILY #90 syringe Primary Care Physician: Andrés Helms MD [Primary Care Provider] - Please follow up with your Primary Care Physician in: 1 week. Please Follow Up With: Gage Huggins MD When: as scheduled. 12/05/17810 <Electronically signed by Pan Boggs MD> Date Pan Boggs MD CC: Andrés Helms MD CBC W/DIFF, AUTOMATED Collected: 12/05/2017 Status: F Source: [place] 6:05 AM [facility] REPOSITORY Order Comment: SPECIMEN OBTAINED FROM LINE DRAW TYPE CODE TESTS RESULT OUT OF RANGE REFERENCE UNITS LAB L100.1000 4.4-11.0 K/mm3 Normal WBC 6.4 LAB L100.1200 4.2-5.4 M/mm3 Low RBC 2.80 LAB L100.1300 12.0-15.0 g/dl Low HGB 9.3 LAB L100.1400 37-47 % Low HCT 27.6 LAB L100.1500 81-99 fL Normal MCV 98.6 LAB L100.1600 27.0-32.0 pg High MCH 33.2 LAB L100.1700 32-36 g/gl Normal MCHC 33.7 LAB L100.1810 11.6-14.6 % High RDW CV 14.9 LAB L100.1820 35.1-43.9 fl High RDW SD 50.4 LAB L100.1900 150-450 K/mm3 Normal PLT 257 LAB L100.2000 6.2-12.0 fl Normal MPV 9.0 LAB L100.2100 47-70 % Normal NEUT% 53.9 LAB L100.2200 19-41 % Normal LY% 23.2 LAB L100.2300 0-10 % High MONO% 21.7 LAB L100.2400 0-5 % Normal EO% 0.5 LAB L100.2500 0-1 % Normal BASO% 0.5 LAB L100.2550 0.0-0.9 % Normal IM GRAN % 0.200 Result Comment: IG% - Immature Granulocytes (promyelocytes, myelocytes and metamyelocytes) > 1% indicates that a LEFT SHIFT is Present. LAB L100.2620 2.0-7.7 X10 3/uL Normal Absolute Neut 3.5 LAB L100.2720 0.83-4.51 X10 3/ul Normal Absolute Lymph 1.49 Performed By: #### L100.0100 #### [facility] [place], [address] HISTORY AND PHYSICAL Observed: 12/04/2017 Status: F Source: [place] EXAM 10:09 AM [facility] REPOSITORY [facility] Medical Records Department [address] [place] [address] History and Physical 12/04/17 09 MR#: [id number] Acct: [id number] Name: WALI HALL Rep #: [id number] : 1960 57 From: Pan Bogsg MD PCP: Andrés Helms MD Status: ADM IN Y Location: [place] [address] Problem List (1) Small cell lung cancer in adult Status: Chronic (2) Seizure disorder Status: Chronic (3) Tobacco dependence in remission Status: Chronic (4) Hyponatremia Status: Chronic History of Present Illness Date of Admission: 12/04/17 Chief Complaint: Bilateral PEs. The patient is a 57 year old F with past medical history as mentioned above was referred to the emergency room by the cancer center of the radiology department called this morning to report that patient has bilateral pulmonary emboli on CT scan chest that was done yesterday. The patient is asymptomatic and she denies any symptoms. She denied chest pain, shortness of breath, vision, dizziness or lightheadedness. CT scan chest that was done yesterday was a follow-up on her lung cancer. She denies abdominal pain, nausea vomiting. She denied bleeding from any orifices. She had a history of small cell lung cancer and currently chemotherapy, last chemotherapy was last week and she has been following up with Dr. Marcelo. She has a history of seizure disorder and she has been on Keppra and according to her , this was attributed to hyponatremia and she has been without seizure since August,. 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 In the emergency department, her vital signs were stable. Respiratory status was stable, pulse ox is 98% on room air. Her routine blood work was remarkable for chronic anemia with stable, otherwise normal. EKG revealed normal sinus rhythm without evidence of acute ischemic changes. Her troponin is negative. Pro time and INR were normal. She is being admitted for bilateral pulmonary embolism. Past Medical History Past Medical History (Chronic Problems): Chronic Problems (Last Updated 12/04/17 @ 08:52 by Pan Boggs MD) Adjustment disorder (Chronic) Small cell lung cancer in adult (Chronic) Seizure disorder (Chronic) Tobacco dependence in remission (Chronic) Hyponatremia (Chronic) Allergies No Known Allergies Allergy (Verified 11/25/17 09:46) Home Medications: Ambulatory Orders Medication Instructions Recorded Lidocaine/Prilocaine 30 gm TP DAILY PRN PRN #1 cream..g. 10/07/17 [Lidocaine-Prilocaine Cream] Ondansetron HCl [Zofran] 8 mg PO Q8H PRN PRN #30 tab 10/07/17 Surgical History: - - Bilateral carpal tunnel surgery, bilateral hammertoe surgery, lung biopsy Psychiatric History: No pertinent psych hx DIRECTOR OF AGRONOMY History: No pertinent DIRECTOR OF AGRONOMY history Lives: Spouse/ Significant Other Smoking Status: Former smoker Alcohol: None Drugs: None - *Family History Maternal History Items: - - no CVA Paternal History Items: No pertinent history Review of Systems Constitutional: Reports: Weakness. Denies: Anorexia, Chills, Fever Eyes: Denies: Blurred vision, Double vision, Drainage, Redness HEENT: Denies: Difficulty Hearing, Ear Pain, Eye Pain, Nasal Congestion, Sore Throat Cardiovascular: Denies: Chest Pain, Chest Pressure, Chest Tightness, Edema, Heaviness, Light Headedness, Palpitations, Syncope Respiratory: Denies: Cough, Pleuritic Pain, Shortness of Breath, Sputum production, Wheezing Gastrointestinal: Denies: Abdominal Pain, Constipation, Diarrhea, Nausea, Vomiting Genitourinary: Denies: Dysuria, Frequency, Hematuria Musculoskeletal: Denies: Arm Pain, Back Pain, Foot Pain Skin: Denies: Dryness, Rash Neurological: Denies: Balance problems, Double vision, Change in Speech, Slurred speech, Confusion, Focal weakness, Headaches, Incoordination, Numbness Psychiatric: Denies: Anxiety, Depression Endocrine: Denies: Change in Body Habitus, Polydipsia VTE Information - Inpt Only VTE Present on Admission: No VTE Mechan Device Prophylaxis: None VTE Pharm Prophylaxis ordered?: No - Physical Exam General: Alert, Oriented x3, Cooperative, No apparent distress HEENT: Atraumatic, PERRLA, EOMI Oral: Moist Mucosa, No Gingival or Mucosal Lesions/ Ulcerations Neck: Supple, No JVD, Negative Carotid Bruits, Trachea Midline, Thyroid Normal Size and Texture Lungs: Clear to auscultation, Normal air movement, No rhonchi, No wheeze, No rales Cardiovascular: Regular rate, Regular Rhythm, Normal S1, Normal S2, No murmurs Abdomen: Bowel Sounds Present, Soft, Non Tender, Non-Distended, No Hepato-splenomegaly Extremities: No clubbing, No cyanosis, No edema Skin: No rashes, No breakdown Lymphatic: No Cervical, Supraclavicular, or Inguinal Adenopathy Neurological: Cranial nerves II-XII grossly intact, Motor Exam 5/5 strength throughout Psych/Mental Status: Normal Affect, Appropriate, Alert and oriented to time, place, person, mood and affect Vital Signs Temp Pulse Resp BP Pulse Ox 99.4 F H 100 16 137/69 H 98 12/04/17 08:55 12/04/17 08:55 12/04/17 08:55 12/04/17 08:55 12/04/17 08:55 Oxygen Delivery Method Room Air Weight: 151 lb 7.321 oz Body Mass Index (BMI) 24.4 Laboratory Tests Assessment/Plan This is a 57 years old female patient was referred from the cancer center to the ER because she was found to have multiple bilateral pulmonary emboli on CT scan chest that was done yesterday for follow-up regarding a small cell lung cancer. #1 acute multiple bilateral lower lobes pulmonary emboli: This was discovered on CTA chest that was done yesterday December 03, 2017 for follow-up for small cell lung cancer and she was found to have pulmonary emboli on both right lower lobe artery branches as well as left lower lobe artery branches. This is considered provoked secondary to lung cancer. At this time, patient's vital signs are stable, respiratory status are stable. EKG revealed normal sinus rhythm, no acute ischemic changes. Troponin is negative. Plan: Admit to PCU, cardiac monitoring, start therapeutic Lovenox twice daily, O2 via nasal cannula to keep O2 saturation more than 92%, Tylenol as needed, PT OT evaluation and treatment. #2 small cell lung cancer: Currently on chemotherapy, last session was last week. She has been following up with Dr. Moses. #3 seizure disorder: Continue Keppra. According to her , she has been stable without seizures since August,. #4 chronic hyponatremia: Probably due to SIADH secondary to cancer. She has been on oral sodium supplements. Serum sodium is normal. Plan to continue oral sodium supplementation. #5 DVT prophylaxis: She will be on Lovenox twice daily for acute PE. This note was generated with [employer] dictation software. It may contain incorrect words, spelling, and punctuation that were not noted in checking the note before signing. Code Visit Inpatient E AND M: 63836 Init Hosp L3 12/04/17 1009 <Electronically signed by Pan Boggs MD> Date Pan Boggs MD Cosigner Signature: Date (if applicable) CC: Andrés Helms MD; Pan Boggs Signed EMERGENCY DEPARTMENT Observed: 12/04/2017 Status: F Source: [place] SUMMARY 9:03 AM [facility] REPOSITORY [facility] Medical Records Department [address] [place] [address] Emergency Department Summary 12/04/17 0824 MR#: [id number] Acct: [id number] Name: WALI HALL Rep #: [id number] : 1960 57 From: Valentina Harding MD PCP: Andrés Helms MD Status: ADM IN - ER Visit Summary Date of Service: 12/04/17 Chief Complaint: Bilateral PEs History of Present Illness: The patient is a 57 F currently receiving chemotherapy treatment for small cell lung carcinoma who presents for bilateral PEs. Patient received scheduled imaging yesterday, and radiology called the cancer center to report this morning that bilateral pulmonary emboli were noted on the CT from yesterday. Denies any shortness of breath, fever, chest pain but does endorse a cough. She has no other complaints. Physical Examination: Vital signs: afebrile, hemodynamically stable, no hypoxia on room air General: well nourished, well developed, in no distress Skin: warm, dry, no rash, no pallor HEENT: normocephalic and atraumatic; PERRL, EOMI, moist mucous membranes Cardiovascular: regular rate and rhythm without murmurs, no peripheral edema, 2+ pulses all distal extremities Respiratory: No increased work of breathing, lungs are clear to auscultation bilaterally, no rales, rhonchi or wheezing Abdominal: Abdomen is soft, nontender with normoactive bowel sounds, no guarding or rebound, no masses MSK: Moves all extremities, no deformities, normal strength Neuro: Awake and alert, oriented 4. No facial droop, sensation and motor function intact and symmetric Test Results: Abnormal Lab Results Emergency Department Course and Treatment: Patient is in no distress, is afebrile, no tachypnea or tachycardia, and no hypoxia. Her PESI score puts her at moderate mortality risk at 30 days, making inpatient management appropriate. Patient was started on Lovenox subcu. She was discussed with the hospitalist for admission and further workup/management. Treatment Plan: [] Disposition: [] Impression: Bilateral pulmonary emboli, small cell lung carcinoma This note was generated with [employer] dictation software. It may contain incorrect words, spelling, and punctuation that were not noted in review of the chart prior to signing ED Disposition - Plan for ED Patient: Chief Complaint: Shortness of Breath What to do if you have Problems For any increased pain, shortness of breath, bleeding, nausea or vomiting, chest pain, or any unexpected problems, contact your Primary Care Provider. Call [facility] ([phone]) or report to the closest Emergency Room. Call 911 if necessary. 12/04/17 0903 <Electronically signed by Valentina Harding MD> Date Valentina Harding MD Cosigner Signature (If Indicated): Date CC: Andrés Helms MD CBC W/DIFF, AUTOMATED Collected: 12/04/2017 Status: F Source: [place] 6:35 AM [facility] REPOSITORY TYPE CODE TESTS RESULT OUT OF RANGE REFERENCE UNITS LAB L100.1000 4.4-11.0 K/mm3 Normal WBC 5.4 LAB L100.1200 4.2-5.4 M/mm3 Low RBC 2.96 LAB L100.1300 12.0-15.0 g/dl Low HGB 9.7 LAB L100.1400 37-47 % Low HCT 29.0 LAB L100.1500 81-99 fL Normal MCV 98.0 LAB L100.1600 27.0-32.0 pg High MCH 32.8 LAB L100.1700 32-36 g/gl Normal MCHC 33.4 LAB L100.1810 11.6-14.6 % High RDW CV 14.8 LAB L100.1820 35.1-43.9 fl High RDW SD 49.3 LAB L100.1900 150-450 K/mm3 Normal PLT 243 LAB L100.2000 6.2-12.0 fl Normal MPV 8.2 LAB L100.2100 47-70 % Normal NEUT% 49.3 LAB L100.2200 19-41 % Normal LY% 27.0 LAB L100.2300 0-10 % High MONO% 21.4 LAB L100.2400 0-5 % Normal EO% 1.3 LAB L100.2500 0-1 % Normal BASO% 0.4 LAB L100.2550 0.0-0.9 % Normal IM GRAN % 0.600 Result Comment: IG% - Immature Granulocytes (promyelocytes, myelocytes and metamyelocytes) > 1% indicates that a LEFT SHIFT is Present. LAB L100.2620 2.0-7.7 X10 3/uL Normal Absolute Neut 2.7 LAB L100.2720 0.83-4.51 X10 3/ul Normal Absolute Lymph 1.45 Performed By: #### L100.0100 #### [facility] [address] [place], [place], [id number] BASIC METABOLIC Collected: 12/04/2017 Status: F Source: [place] PROFILE (BMP) 6:35 AM [facility] REPOSITORY Order Comment: 'TROP' Serial specimen #1, #2, #3, or #4: 1 TYPE CODE TESTS RESULT OUT OF RANGE REFERENCE UNITS LAB L501.0100 74-106 mg/dL Normal GLU 82 Result Comment: Please note revised GLUCOSE reference range effective 2017. LAB L501.1000 7-18 mg/dL Normal BUN 8 LAB L501.1100 0.55-1.02 mg/dL Normal CREAT,SERUM 0.85 Result Comment: The validity of the calculated GFR AND GFRAA in patients over 70 years has not been determined. Clinical correlation is essential. LAB L501.1110 >60 mL/min Normal EST GFR 73 Result Comment: Non- GFR Calc LAB L501.1115 >60 mL/min Normal EST GFR - AA 88 Result Comment: GFR Calc LAB L501.1255 ml/min Normal Estimated CRCL 66.71 LAB L501.1300 10-20 RATIO Low BUN/CRE 9.4 LAB L501.2200 8.5-10 mg/dL Low .1 CA 8.1 LAB L501.5300 136-14 mmol/L Normal 5 NA 139 LAB L501.5600 3.5-5. mmol/L Normal 1 K 4.1 LAB L501.5900 98-107 mmol/L Normal CL 105 LAB L501.6100 21.0-3 mmol/L Normal 2.0 CO2 24.0 LAB L501.6200 5-15 Normal GAP 10 Performed By: #### L500.2500, L501.4010 #### [facility] [address] [facility] [address]. [place], [place], [address] TROPONIN-I Collected: 12/04/2017 Status: F Source: [place] 6:35 AM [facility] REPOSITORY Order Comment: 'TROP' Serial specimen #1, #2, #3, or #4: 1 TYPE CODE TESTS RESULT OUT OF RANGE REFERENCE UNITS LAB L501.4010 <0.06 ng/mL Normal < 0.02 TROPONIN-I Result Comment: TROPONIN-I EXPECTED VALUES <0.05 NEGATIVE 0.06 - 0.59 AT RISK OF DC > OR = 0.60 SUGGEST DC Performed By: #### L500.2500, L501.4010 #### [facility] [address] [facility] [address]. [place], [place], [address] PROTHROMBIN TIME W/INR Collected: 12/04/2017 Status: F Source: [place] 6:35 AM [facility] REPOSITORY TYPE CODE TESTS RESULT OUT OF RANGE REFERENCE UNITS LAB L300.4150 11.7-14.9 SECONDS Normal PROTIME 13.6 LAB L300.4200 Normal INR 1.0 Performed By: #### L300.3900, L300.4310 #### [facility] [address] [place], [address] PARTIAL THROMBOPLAST Collected: 12/04/2017 Status: F Source: [place] TIME 6:35 AM [facility] REPOSITORY TYPE CODE TESTS RESULT OUT OF RANGE REFERENCE UNITS LAB L300.4310 24.1-36.2 Seconds Normal PTT 25.0 Performed By: #### L300.3900, L300.4310 #### [facility] [address] [place], [address] CHEST WITH CONTRAST Observed: 12/03/2017 Status: F Source: [place] 7:22 AM [facility] REPOSITORY [facility] Imaging Services [address] [place] [address] Chest WITH Contrast MR#: [id number] Acct: [id number] Name: WALI HALL Rep #: [id number] : 1960 F 57 From: Romario Gastelum MD PCP: Andrés Helms MD Status: REG CLI Study: Chest WITH Contrast Date of Exam: 12/03/17 Exam# [id number] Ordering Dr: Denny Moses MD STUDY: CT CHEST WITH CONTRAST REASON FOR EXAM: Female, 57 years old. Small cell lung cancer RADIATION DOSAGE (If Supplied By Facility): CTDIvol = ( 9.49 ) mGy, DLP = ( 349.48 ) mGycm TECHNIQUE: Transaxial imaging was performed following intravenous administration of 100 ml of Isovue 300 contrast material. Individualized dose optimization techniques were used for this CT. COMPARISON: 08/29/2017 FINDINGS: Right chest wall port. Breast implants. Pulmonary emphysema. Scattered calcified pulmonary granulomata. Stable 4 mm right lower lobe nodule, seen on image 88 of series 4. Stable 4 mm nodule in the left upper lobe on image 38. There is no demonstrated pleural abnormality. Pulmonary emboli are present in right lower lobe artery branches on image 79 of series 2. Pulmonary emboli are present in left lower lobe artery branches on image 65. Normal heart and pericardium. Normal mediastinum. Calcified right hilar lymph nodes. Normal enhanced pulmonary arteries. Normal aorta arch and descending thoracic aorta. Stable T7 compression deformity. There is no demonstrated abnormality of the visualized upper abdomen. CT/Chest WITH Contrast IMPRESSION: Bilateral pulmonary emboli. Stable bilateral pulmonary nodules. Stable T7 compression deformity. N.B. : The above information has been verbally conveyed by Romario Gastelum MD to Bonnie Sommers NP, Other, on 12/04/2017 05:03:18 (ET). Electronically Signed: Romario Gastelum MD at 4:06 EDT Tel , Service support , N.B. : The above information has been verbally conveyed by Romario Gastelum MD to Bonnie Sommers NP, Other, on 12/04/2017 05:03:18 (ET). CC: Andrés Helms MD; Denny Moses MD Coal Gasification Technician: Signed ONCOLOGY VISIT REPORT Observed: 11/25/2017 Status: F Source: [place] 5:04 PM [facility] REPOSITORY [facility] [address] [place] [address] OFFICE VISIT Date of Service: 11/25/17 1654 MR#: [id number] Acct: [id number] Name: WALI HALL Rep #: [id number] : 1960 From: Denny Moses MD Age/Sex: 57/F Location: ONC Status: Signed Subjective - Date of Service Date of Service:: 11/25/17 - Chief Complaint F/u for cycle 2 day 15 Irinotecan - History of Present Illness 57-year-old woman presented with hyponatremia and change in mental status, she was started on seizure medication. On August 29, 2017 she was found unconscious, presented to the ER, CTA showed mediastinal and right hilar adenopathy with 4 mm right lower lobe nodule in addition to a lytic lesion in the T8 vertebral body. She had a PET CT scan on September 06, 2017 [facility] which showed several lymph nodes within the mediastinum with increased metabolic activity, right preaortic lymph node measuring 9 mm with SUV of 6.4, right hilar adenopathy with SUV of 12, subcarinal node with SUV of 7.3 and another subcarinal node with SUV of 7.3, multiple subcentimeter lung nodules noted bilaterally. She had EBUS on 09/27/2017, biopsy showed Small cell lung cancer. Began palliative chemotherapy with Cisplatin/irinotecan 10/14/17. Comes in for C2 D15 Irinotecan. is very upset this morning, blaming me for his inability to have intercourse and her not eating eggs because of discussion they had during Chemotherapy education. - Past Medical/Social History Past Medical History Other Past Medical History: [facility] R/T TO LUNG CA Cancer: Lung cancer Social History Social History: No changes Smoking Status Former smoker Review of Systems Constitutional:: Denies: Fever, Sweats, Weight loss, Appetite change, Chills Cardiovascular:: Denies: Chest pain, Palpitations, Dyspnea on exertion, Orthopnea, PND, Shortness of breath Respiratory: Denies: Cough, Hemoptysis, Shortness of Breath, Wheezing Gastrointestinal:: Denies: Abdominal pain, Nausea, Vomiting, Diarrhea, Constipation, Hematochezia Genitourinary: Denies: Dysuria, Hematuria, 15, Flank pain Musculoskeletal:: Denies: Back pain, Myalgia, Arthralgia Skin: Denies: Rash, Skin Changes, Wounds Neurological:: Denies: Headache, Dizziness, Visual changes, Tinnitus, Hearing loss Psychiatric: Denies: Anxiety, Depression, Homicidal Ideations, Suicidal Ideations Vital Signs Height 5 ft 6 in Weight: 71.214 kg Weight in Pounds 157.0 lbs Pulse Ox 100 - Physical Exam General: Alert, Oriented x3, No apparent distress HEENT: Atraumatic, PERRLA, EOMI, Normocephalic Oropharynx:: Dry mucosa Neck:: Supple, Trachea midline. Negative for: JVD, bilateral Cardiac:: Regular rate, Regular rhythm, Normal S1, Normal S2. Negative for: Murmur Lungs: Clear to auscultation, Excusion symmetrical. Negative for: Rhonchi, Wheezes Laboratory Data: Laboratory Tests Assessment and Plan Small cell lung cancer with multiple bilateral lung nodules less than 1 cm, right hilar adenopathy, subcarinal adenopathy and preaortic adenopathy. Also has T8 vertebral deformity which is not active on PET/CT or bone scan. Extensive disease/Stage IV(TX N2 M1) multiple bilateral lung nodules. PS 1. On chemotherapy with Cisplatin and Irinotecan, counts and electrolytes are OK for therapy. Plan is to proceed with C2D15 Irinotecan. Will obtain CT chest/abdomen to assess disease responses. To transfer care to Dr. Huggins for the next visit. RTC 2 weeks with CBC, CMP/Mag for C3D1 Cisplatin and Irinotecan. Medications: Prescriptions This Visit Medication Instructions Recorded Lidocaine/Prilocaine 30 gm TP DAILY PRN PRN #1 cream..g. 10/07/17 [Lidocaine-Prilocaine Cream] Primary Care Provider: Andrés Helms MD Referring Provider: - Problem List (1) Small cell lung cancer in adult Status: Chronic (2) Chemotherapy management, encounter for Status: Acute Code Visit Office Visits / Consults: [id number] OV L5 Est 11/25/17 1704 <Electronically signed by Denny Moses MD> Date Denny Moses MD Cosigner Signature: Date (if applicable) CC: Andrés Helms MD CBC W/DIFF, AUTOMATED Collected: 11/25/2017 Status: F Source: [place] 9:21 AM [facility] REPOSITORY TYPE CODE TESTS RESULT OUT OF RANGE REFERENCE UNITS LAB L100.1000 4.4-11.0 K/mm3 Low WBC 4.2 LAB L100.1200 4.2-5.4 M/mm3 Low RBC 3.10 LAB L100.1300 12.0-15.0 g/dl Low HGB 10.2 LAB L100.1400 37-47 % Low HCT 29.9 LAB L100.1500 81-99 fL Normal MCV 96.5 LAB L100.1600 27.0-32.0 pg High MCH 32.9 LAB L100.1700 32-36 g/gl Normal MCHC 34.1 LAB L100.1810 11.6-14.6 % Normal RDW CV 13.7 LAB L100.1820 35.1-43.9 fl High RDW SD 46.7 LAB L100.1900 150-450 K/mm3 Normal PLT 210 LAB L100.2000 6.2-12.0 fl Normal MPV 8.5 LAB L100.2100 47-70 % Normal NEUT% 64.1 LAB L100.2200 19-41 % Normal LY% 27.5 LAB L100.2300 0-10 % Normal MONO% 6.3 LAB L100.2400 0-5 % Normal EO% 1.7 LAB L100.2500 0-1 % Normal BASO% 0.2 LAB L100.2550 0.0-0.9 % Normal IM GRAN % 0.200 Result Comment: IG% - Immature Granulocytes (promyelocytes, myelocytes and metamyelocytes) > 1% indicates that a LEFT SHIFT is Present. LAB L100.2620 2.0-7.7 X10 3/uL Normal Absolute Neut 2.7 LAB L100.2720 0.83-4.51 X10 3/ul Normal Absolute Lymph 1.14 Performed By: #### L100.0100 #### [facility] [address] [place], [place] [address], [address] COMPREHENSIVE METABOLIC Collected: 11/25/2017 Status: F Source: [facility] 9:21 AM [facility] REPOSITORY Order Comment: Reason for Laboratory Test Chemotherapy TYPE CODE TESTS RESULT OUT OF RANGE REFERENCE UNITS LAB L501.0100 74-106 mg/dL Normal GLU 88 Result Comment: Please note revised GLUCOSE reference range effective 2017. LAB L501.1000 7-18 mg/dL Normal BUN 11 LAB L501.1100 0.55-1.02 mg/dL Normal CREAT,SERUM 0.82 Result Comment: The validity of the calculated GFR AND GFRAA in patients over 70 years has not been determined. Clinical correlation is essential. LAB L501.1110 >60 mL/min Normal EST GFR 76 Result Comment: Non- GFR Calc LAB L501.1115 >60 mL/min Normal EST GFR - AA 92 Result Comment: GFR Calc LAB L501.1255 ml/min Normal Estimated CRCL 69.15 LAB L501.1300 10-20 RATIO Normal BUN/CRE 13.5 LAB L501.1500 6.4-8. g/dL Normal 2 T PROT 6.6 LAB L501.1800 3.2-5. g/dL Normal 0 ALB 3.2 LAB L501.1950 2.2-4. g/dL Normal 2 GLOB 3.4 LAB L501.2000 0.9-2. RATIO Normal 4 A/G 0.9 LAB L501.2200 8.5-10 mg/dL Low .1 CA 8.1 LAB L501.4100 15-37 U/L Normal AST 15 LAB L501.4305 45-117 U/L Normal ALK P 86 LAB L501.4405 13-56 U/L Normal ALT 18 Result Comment: Please note revised ALT reference range effective 2017. LAB L501.4600 0.20-1.00 mg/dL Normal T BILI 0.50 LAB L501.5300 136-145 mmol/L Normal NA 141 LAB L501.5600 3.5-5.1 mmol/L Normal K 4.3 LAB L501.5900 98-107 mmol/L High CL 108 LAB L501.6100 21.0-32.0 mmol/L Normal CO2 25.0 LAB L501.6200 5-15 Normal GAP 8 Performed By: #### L500.4050, L501.2300, L501.5200 #### [facility] [address] [place], [address] PHOSPHORUS Collected: 11/25/2017 Status: F Source: [place] 9:21 AM [facility] REPOSITORY Order Comment: Reason for Laboratory Test Chemotherapy TYPE CODE TESTS RESULT OUT OF RANGE REFERENCE UNITS LAB L501.2300 2.5-4.9 mg/dL Normal PHOS 3.0 Performed By: #### L500.4050, L501.2300, L501.5200 #### [facility] [address] [place], [address] MAGNESIUM Collected: 11/25/2017 Status: F Source: [place] 9:21 AM [facility] REPOSITORY Order Comment: Reason for Laboratory Test Chemotherapy TYPE CODE TESTS RESULT OUT OF RANGE REFERENCE UNITS LAB L501.5200 1.6-2.6 mg/dL Normal MG 1.9 Result Comment: Please note revised Magnesium reference range effective 2017. Performed By: #### L500.4050, L501.2300, L501.5200 #### [facility] [address] [place], [address] ONCOLOGY VISIT REPORT Observed: 11/18/2017 Status: F Source: [place] 10:33 AM [facility] REPOSITORY [facility] [address] [place] [address] OFFICE VISIT Date of Service: 11/18/17 1023 MR#: [id number] Acct: [id number] Name: WALI HALL Rep #: [id number] : 1960 From: Denny Moses MD Age/Sex: 57/F Location: OMD Status: Signed Subjective - Date of Service Date of Service:: 11/18/17 - Chief Complaint F/u for cycle 2 day 8 Irinotecan - History of Present Illness 57-year-old woman presented with hyponatremia and change in mental status, she was started on seizure medication. On August 29, 2017 she was found unconscious, presented to the ER, CTA showed mediastinal and right hilar adenopathy with 4 mm right lower lobe nodule in addition to a lytic lesion in the T8 vertebral body. She had a PET CT scan on September 06, 2017 [facility] which showed several lymph nodes within the mediastinum with increased metabolic activity, right preaortic lymph node measuring 9 mm with SUV of 6.4, right hilar adenopathy with SUV of 12, subcarinal node with SUV of 7.3 and another subcarinal node with SUV of 7.3, multiple subcentimeter lung nodules noted bilaterally. She had EBUS on 09/27/2017, biopsy showed Small cell lung cancer. Began palliative chemotherapy with Cisplatin/irinotecan 10/14/17. Comes in for C2 D8 Irinotecan. - Past Medical/Social History Past Medical History Other Past Medical History: FOR[facility]LY [facility] R/T TO LUNG CA Cancer: Lung cancer Social History Social History: No changes Smoking Status Former smoker Review of Systems Constitutional:: Reports: Fatigue. Denies: Fever, Sweats Cardiovascular:: Denies: Chest pain, Palpitations, Dyspnea on exertion, Orthopnea, PND, Shortness of breath Respiratory: Denies: Cough, Hemoptysis, Shortness of Breath, Wheezing Gastrointestinal:: Denies: Abdominal pain, Nausea, Vomiting, Diarrhea, Constipation, Hematochezia Genitourinary: Denies: Dysuria, Hematuria, 15, Flank pain Musculoskeletal:: Denies: Back pain, Myalgia, Arthralgia Skin: Denies: Rash, Skin Changes, Wounds Neurological:: Denies: Headache, Dizziness, Visual changes, Tinnitus, Hearing loss Psychiatric: Denies: Anxiety, Depression, Homicidal Ideations, Suicidal Ideations Vital Signs Height 5 ft 6 in Weight: 68.039 kg Weight in Pounds 150.0 lbs Pulse Ox 100 - Physical Exam General: Alert, Oriented x3, No apparent distress, - - [place]. HEENT: Atraumatic, PERRLA, EOMI, Normocephalic Oropharynx:: Dry mucosa Neck:: Supple, Trachea midline. Negative for: JVD, bilateral Cardiac:: Regular rate, Regular rhythm, Normal S1, Normal S2. Negative for: Murmur Lungs: Clear to auscultation, Excusion symmetrical. Negative for: Rhonchi, Wheezes Lymphatics:: Negative for: Cervical lymphadenopathy, Supraclavicular lymphadenopathy, Axillary lymphadenopathy Laboratory Data: Laboratory Tests Assessment and Plan Small cell lung cancer with multiple bilateral lung nodules less than 1 cm, right hilar adenopathy, subcarinal adenopathy and preaortic adenopathy. Also has T8 vertebral deformity which is not active on PET/CT or bone scan. Extensive disease/Stage IV(TX N2 M1). PS 1. On chemotherapy with Cisplatin and Irinotecan, counts and electrolytes are OK for therapy. Plan is to proceed with C2D8 Irinotecan. Will do 2 cycles and reassess with CT scan. RTC 1 week with CBC, CMP/Mag for C2D15 Cisplatin and Irinotecan. Medications: Prescriptions This Visit Medication Instructions Recorded Lidocaine/Prilocaine 30 gm TP DAILY PRN PRN #1 cream..g. 10/07/17 [Lidocaine-Prilocaine Cream] Primary Care Provider: Andrés Helms MD Referring Provider: - Problem List (1) Small cell lung cancer in adult Status: Chronic (2) Chemotherapy management, encounter for Status: Acute Code Visit Office Visits / Consults: 28020 OV L5 Est 11/18/17 1033 <Electronically signed by Denny Moses MD> Date Denny Moses MD Cosigner Signature: Date (if applicable) CC: CBC W/DIFF, AUTOMATED Collected: 11/18/2017 Status: F Source: [place] 9:15 AM [facility] REPOSITORY TYPE CODE TESTS RESULT OUT OF RANGE REFERENCE UNITS LAB L100.1000 4.4-11.0 K/mm3 Normal WBC 4.9 LAB L100.1200 4.2-5.4 M/mm3 Low RBC 3.46 LAB L100.1300 12.0-15.0 g/dl Low HGB 11.3 LAB L100.1400 37-47 % Low HCT 33.6 LAB L100.1500 81-99 fL Normal MCV 97.1 LAB L100.1600 27.0-32.0 pg High MCH 32.7 LAB L100.1700 32-36 g/gl Normal MCHC 33.6 LAB L100.1810 11.6-14.6 % Normal RDW CV 13.2 LAB L100.1820 35.1-43.9 fl High RDW SD 44.0 LAB L100.1900 150-450 K/mm3 Normal PLT 205 LAB L100.2000 6.2-12.0 fl Normal MPV 8.8 LAB L100.2100 47-70 % Normal NEUT% 52.4 LAB L100.2200 19-41 % Normal LY% 37.0 LAB L100.2300 0-10 % Normal MONO% 8.2 LAB L100.2400 0-5 % Normal EO% 1.0 LAB L100.2500 0-1 % Normal BASO% 1.0 LAB L100.2550 0.0-0.9 % Normal IM GRAN % 0.400 Result Comment: IG% - Immature Granulocytes (promyelocytes, myelocytes and metamyelocytes) > 1% indicates that a LEFT SHIFT is Present. LAB L100.2620 2.0-7.7 X10 3/uL Normal Absolute Neut 2.6 LAB L100.2720 0.83-4.51 X10 3/ul Normal Absolute Lymph 1.81 Performed By: #### L100.0100 #### [facility] [address] [place], [place], [address] COMPREHENSIVE METABOLIC Collected: 11/18/2017 Status: F Source: [facility] 9:15 AM [facility] REPOSITORY Order Comment: Reason for Laboratory Test Chemotherapy TYPE CODE TESTS RESULT OUT OF RANGE REFERENCE UNITS LAB L501.0100 74-106 mg/dL Normal GLU 91 Result Comment: Please note revised GLUCOSE reference range effective 2017. LAB L501.1000 7-18 mg/dL High BUN 21 LAB L501.1100 0.55-1.02 mg/dL Normal CREAT,SERUM 0.90 Result Comment: The validity of the calculated GFR AND GFRAA in patients over 70 years has not been determined. Clinical correlation is essential. LAB L501.1110 >60 mL/min Normal EST GFR 68 Result Comment: Non- GFR Calc LAB L501.1115 >60 mL/min Normal EST GFR - AA 83 Result Comment: GFR Calc LAB L501.1255 ml/min Normal Estimated CRCL 63.01 LAB L501.1300 10-20 RATIO High BUN/CRE 23.4 LAB L501.1500 6.4-8. g/dL Normal 2 T PROT 6.8 LAB L501.1800 3.2-5. g/dL Normal 0 ALB 3.2 LAB L501.1950 2.2-4. g/dL Normal 2 GLOB 3.6 LAB L501.2000 0.9-2. RATIO Normal 4 A/G 0.9 LAB L501.2200 8.5-10 mg/dL Low .1 CA 8.3 LAB L501.4100 15-37 U/L Normal AST 21 LAB L501.4305 45-117 U/L Normal ALK P 96 LAB L501.4405 13-56 U/L Normal ALT 28 Result Comment: Please note revised ALT reference range effective 2017. LAB L501.4600 0.20-1.00 mg/dL Normal T BILI 0.40 LAB L501.5300 136-145 mmol/L Normal NA 138 LAB L501.5600 3.5-5.1 mmol/L Normal K 4.3 LAB L501.5900 98-107 mmol/L Normal CL 105 LAB L501.6100 21.0-32.0 mmol/L Normal CO2 27.0 LAB L501.6200 5-15 Normal GAP 6 Performed By: #### L500.4050, L501.2300, L501.5200 #### [facility] [address] [place], [place], [address] PHOSPHORUS Collected: 11/18/2017 Status: F Source: [place] 9:15 AM [facility] REPOSITORY Order Comment: Reason for Laboratory Test Chemotherapy TYPE CODE TESTS RESULT OUT OF RANGE REFERENCE UNITS LAB L501.2300 2.5-4.9 mg/dL Normal PHOS 3.9 Performed By: #### L500.4050, L501.2300, L501.5200 #### [facility] [address] [place], [place], [address] MAGNESIUM Collected: 11/18/2017 Status: F Source: [place] 9:15 AM [facility] REPOSITORY Order Comment: Reason for Laboratory Test Chemotherapy TYPE CODE TESTS RESULT OUT OF RANGE REFERENCE UNITS LAB L501.5200 1.6-2.6 mg/dL Normal MG 2.0 Result Comment: Please note revised Magnesium reference range effective 2017. Performed By: #### L500.4050, L501.2300, L501.5200 #### [facility] [address] [place], [place], [address] ONCOLOGY VISIT REPORT Observed: 11/11/2017 Status: F Source: [place] 5:17 PM [facility] REPOSITORY [facility] [address] [address] [place], [place] [address] OFFICE VISIT Date of Service: 11/11/17 0850 MR#: [id number] Acct: [id number] Name: WALI HALL Rep #: [id number] : 1960 From: Asmita GUILLEN Age/Sex: 57/F Location: ONC Status: Signed Subjective - Date of Service Date of Service:: 11/11/17 - Chief Complaint F/u for cycle 2 day 1 Cisplatin/Irinotecan - History of Present Illness 57-year-old woman presented with hyponatremia and change in mental status, she was started on seizure medication. On August 29, 2017 she was found unconscious, presented to the ER, CTA showed mediastinal and right hilar adenopathy with 4 mm right lower lobe nodule in addition to a lytic lesion in the T8 vertebral body. She had a PET CT scan on September 06, 2017 [facility] which showed several lymph nodes within the mediastinum with increased metabolic activity, right preaortic lymph node measuring 9 mm with SUV of 6.4, right hilar adenopathy with SUV of 12, subcarinal node with SUV of 7.3 and another subcarinal node with SUV of 7.3, multiple subcentimeter lung nodules noted bilaterally. She had EBUS on 09/27/2017, biopsy showed Small cell lung cancer. Began palliative chemotherapy with Cisplatin/irinotecan 10/14/17. - Interval History The patient is presenting to clinic accompanied by spouse for an evaluation anticipating she will receive cycle 2 cisplatin/irinotecan. Reports depressed mood today citing she noted some hair loss in the shower yesterday and further attributes to the anticipation of receiving treatment today. Denies thoughts of harming self or others. Taking Remeron as advised. C/o mild constipation. LBM 11/11/17, prior to yesterday difficult to pass. PO fluid intake likely adequate, appetite good. Inactive at home, up for meals and bathroom. Requests letter to dismiss her from jury duty. - Past Medical/Social History Past Medical History Other Past Medical History: FOR[facility]LY [facility] R/T TO LUNG CA Cancer: Lung cancer Social History Social History: No changes Smoking Status Former smoker Review of Systems Constitutional:: Reports: Fatigue. Denies: Fever, Sweats, Weight loss, Appetite change, Chills Cardiovascular:: Denies: Chest pain, Palpitations, Dyspnea on exertion, Orthopnea, PND, Shortness of breath Respiratory: Denies: Cough, Hemoptysis, Shortness of Breath, Wheezing Gastrointestinal:: Reports: Constipation. Denies: Abdominal pain, Nausea, Vomiting, Diarrhea, Hematochezia Genitourinary: Denies: Dysuria, Hematuria, 15, Flank pain Musculoskeletal:: Denies: Back pain, Myalgia, Arthralgia Skin: Denies: Rash, Skin Changes, Wounds Neurological:: Denies: Headache, Dizziness, Numbness, Tingling, Visual changes, Tinnitus, Hearing loss Psychiatric: Denies: Anxiety, Depression, Homicidal Ideations, Suicidal Ideations Vital Signs Height 5 ft 6 in Weight: 153 lb 3.2 oz Weight in Pounds 153.2 lbs Pulse Ox 96 - Physical Exam General: Alert, Oriented x3, No apparent distress HEENT: Atraumatic, Normocephalic Oropharynx:: Negative for: Dry mucosa, Ulcerated lesions Neck:: Supple, Trachea midline. Negative for: JVD, bilateral Cardiac:: Regular rate, Regular rhythm, Normal S1, Normal S2. Negative for: Murmur Lungs: Clear to auscultation, Excusion symmetrical. Negative for: Rhonchi, Wheezes Abdomen:: Bowel sounds x 4, Soft, Non-tender, Non-distended. Negative for: Hepatosplenomegaly Extremities:: Negative for: Cyanosis, Edema Neurological: Neuro grossly intact Skin:: - - Port right upper chest accessed with gripper covered with DSD. Negative for: Lesions, Rash, Petechiae, Ecchymosis Psychiatric:: Appropriate affect, Euthymic Lymphatics:: Negative for: Cervical lymphadenopathy, Supraclavicular lymphadenopathy, Axillary lymphadenopathy Assessment and Plan 1. Small cell lung cancer extensive disease/Stage IV(TX N2 M1) with multiple bilateral lung nodules less than 1 cm, right hilar adenopathy, subcarinal adenopathy and preaortic adenopathy and T8 vertebral deformity which is not active on PET/CT or bone scan- Tolerating chemotherapy well. CMP shows resolution of hyponatremia. CBC reviewed and within acceptable parameters for treatment. She is otherwise not endorsing any s/sx contraindicating treatment. Thus will proceed with planned cycle 2 Cisplatin/irinotecan. Tentatively plan to complete 2 cycles and reassess with CT scan. 2. Adjustment disorder- Taking Remeron with modest improvement. Tearful during much of assessment. Depression today attributable to hair loss. Discussed hair prosthesis and provided written information about local resources. Asmita Sommers, MSN, CHIEF STRATEGY OFFICER-C, AOCNP Medications: Prescriptions This Visit Medication Instructions Recorded Lidocaine/Prilocaine 30 gm TP DAILY PRN PRN #1 cream..g. 10/07/17 [Lidocaine-Prilocaine Cream] Medications Added to Medication List This Visit 0.9% Normal Saline Med 11/11/17 00:00 Active 250 ml IV UD PRN 0.9% Normal Saline 1,000 ml Med 11/11/17 00:00 Active IV 999 mls/hr 0.9% Saline Lock Med 11/11/17 00:00 Active Primary Care Provider: Andrés Helms MD Referring Provider: Denny Moses MD - Problem List (1) Small cell lung cancer in adult Status: Chronic (2) Adjustment disorder Status: Acute Qualifiers: Adjustment disorder type: with depressed mood Qualified Code(s): F43.21 - Adjustment disorder with depressed mood (3) Chemotherapy management, encounter for Status: Acute 11/11/17 7707 <Electronically signed by Asmita GALLAGHERC> Date Asmita GALLAGHERC Cosigner Signature: Date (if applicable) CC: CBC W/DIFF, AUTOMATED Collected: 11/11/2017 Status: F Source: [place] 8:28 AM [facility] REPOSITORY TYPE CODE TESTS RESULT OUT OF RANGE REFERENCE UNITS LAB L100.1000 4.4-11.0 K/mm3 Normal WBC 6.2 LAB L100.1200 4.2-5.4 M/mm3 Low RBC 3.22 LAB L100.1300 12.0-15.0 g/dl Low HGB 10.9 LAB L100.1400 37-47 % Low HCT 31.9 LAB L100.1500 81-99 fL High MCV 99.1 LAB L100.1600 27.0-32.0 pg High MCH 33.9 LAB L100.1700 32-36 g/gl Normal MCHC 34.2 LAB L100.1810 11.6-14.6 % Normal RDW CV 13.2 LAB L100.1820 35.1-43.9 fl High RDW SD 44.0 LAB L100.1900 150-450 K/mm3 Normal PLT 234 LAB L100.2000 6.2-12.0 fl Normal MPV 8.6 LAB L100.2100 47-70 % Normal NEUT% 56.1 LAB L100.2200 19-41 % Normal LY% 26.2 LAB L100.2300 0-10 % High MONO% 14.1 LAB L100.2400 0-5 % Normal EO% 1.3 LAB L100.2500 0-1 % High BASO% 1.3 LAB L100.2550 0.0-0.9 % High IM GRAN % 1.000 Result Comment: IG% - Immature Granulocytes (promyelocytes, myelocytes and metamyelocytes) > 1% indicates that a LEFT SHIFT is Present. LAB L100.2620 2.0-7.7 X10 3/uL Normal Absolute Neut 3.5 LAB L100.2720 0.83-4.51 X10 3/ul Normal Absolute Lymph 1.62 Performed By: #### L100.0100 #### [facility] [address] [place], [place], [address] COMPREHENSIVE METABOLIC Collected: 11/11/2017 Status: F Source: [place] 8:27 AM [facility] REPOSITORY Order Comment: Reason for Laboratory Test Chemotherapy TYPE CODE TESTS RESULT OUT OF RANGE REFERENCE UNITS LAB L501.0100 74-106 mg/dL Normal GLU 79 Result Comment: Please note revised GLUCOSE reference range effective 2017. LAB L501.1000 7-18 mg/dL Normal BUN 15 LAB L501.1100 0.55-1.02 mg/dL Normal CREAT,SERUM 0.78 Result Comment: The validity of the calculated GFR AND GFRAA in patients over 70 years has not been determined. Clinical correlation is essential. LAB L501.1110 >60 mL/min Normal EST GFR 80 Result Comment: Non- GFR Calc LAB L501.1115 >60 mL/min Normal EST GFR - AA 97 Result Comment: GFR Calc LAB L501.1255 ml/min Normal Estimated CRCL 72.70 LAB L501.1300 10-20 RATIO Normal BUN/CRE 19.2 LAB L501.1500 6.4-8. g/dL Normal 2 T PROT 6.8 LAB L501.1800 3.2-5. g/dL Normal 0 ALB 3.2 LAB L501.1950 2.2-4. g/dL Normal 2 GLOB 3.6 LAB L501.2000 0.9-2. RATIO Normal 4 A/G 0.9 LAB L501.2200 8.5-10 mg/dL Low .1 CA 8.3 LAB L501.4100 15-37 U/L Normal AST 20 LAB L501.4305 45-117 U/L Normal ALK P 93 LAB L501.4405 13-56 U/L Normal ALT 23 Result Comment: Please note revised ALT reference range effective 2017. LAB L501.4600 0.20-1.00 mg/dL Normal T BILI 0.30 LAB L501.5300 136-145 mmol/L Normal NA 140 LAB L501.5600 3.5-5.1 mmol/L Normal K 4.3 LAB L501.5900 98-107 mmol/L Normal CL 107 LAB L501.6100 21.0-32.0 mmol/L Normal CO2 28.0 LAB L501.6200 5-15 Normal GAP 5 Performed By: #### L500.4050, L501.2300, L501.5200 #### [facility] [address] [place], [place], [address] PHOSPHORUS Collected: 11/11/2017 Status: F Source: [place] 8:27 AM [facility] REPOSITORY Order Comment: Reason for Laboratory Test Chemotherapy TYPE CODE TESTS RESULT OUT OF RANGE REFERENCE UNITS LAB L501.2300 2.5-4.9 mg/dL Normal PHOS 3.2 Performed By: #### L500.4050, L501.2300, L501.5200 #### [facility] [address] [place], [place], [address] MAGNESIUM Collected: 11/11/2017 Status: F Source: [place] 8:27 AM [facility] REPOSITORY Order Comment: Reason for Laboratory Test Chemotherapy TYPE CODE TESTS RESULT OUT OF RANGE REFERENCE UNITS LAB L501.5200 1.6-2.6 mg/dL Normal MG 2.1 Result Comment: Please note revised Magnesium reference range effective 2017. Performed By: #### L500.4050, L501.2300, L501.5200 #### [facility] [address] [place], [address] ONCOLOGY VISIT REPORT Observed: 10/28/2017 Status: F Source: [place] 9:29 AM [facility] REPOSITORY [facility] [address] [place] [address] OFFICE VISIT Date of Service: 10/28/17921 MR#: [id number] Acct: [id number] Name: WALI HALL Rep #: [id number] : 1960 From: Denny Moses MD Age/Sex: 57/F Location: OMD Status: Signed Subjective - Date of Service Date of Service:: 10/28/17 - Chief Complaint F/u for cycle 1 day 15 irinotecan - History of Present Illness 57-year-old woman presented with hyponatremia and change in mental status, she was started on seizure medication. On August 29, 2017 she was found unconscious, presented to the ER, CTA showed mediastinal and right hilar adenopathy with 4 mm right lower lobe nodule in addition to a lytic lesion in the T8 vertebral body. She had a PET CT scan on September 06, 2017 [facility] which showed several lymph nodes within the mediastinum with increased metabolic activity, right preaortic lymph node measuring 9 mm with SUV of 6.4, right hilar adenopathy with SUV of 12, subcarinal node with SUV of 7.3 and another subcarinal node with SUV of 7.3, multiple subcentimeter lung nodules noted bilaterally. She had EBUS on 09/27/2017, biopsy showed Small cell lung cancer. Began palliative chemotherapy with Cisplatin/irinotecan 10/14/17, now comes in for C1 D15 Irinotecan. She feels well. - Past Medical/Social History Past Medical History Other Past Medical History: [facility] R/T TO LUNG CA Cancer: Lung cancer Social History Smoking Status Former smoker Review of Systems Constitutional:: Denies: Fever, Sweats, Weight loss, Appetite change, Chills Cardiovascular:: Denies: Chest pain, Palpitations, Dyspnea on exertion, Orthopnea, PND, Shortness of breath Respiratory: Denies: Cough, Hemoptysis, Shortness of Breath, Wheezing Gastrointestinal:: Denies: Abdominal pain, Nausea, Vomiting, Diarrhea, Constipation, Hematochezia Genitourinary: Denies: Dysuria, Hematuria, 15, Flank pain Musculoskeletal:: Denies: Back pain, Myalgia, Arthralgia Skin: Denies: Rash, Skin Changes, Wounds Neurological:: Denies: Headache, Dizziness, Visual changes, Tinnitus, Hearing loss Psychiatric: Denies: Anxiety, Depression, Homicidal Ideations, Suicidal Ideations Vital Signs Height 5 ft 6.5 in Weight: 67.132 kg Weight in Pounds 148.0 lbs Pulse Ox 100 - Physical Exam General: Alert, Oriented x3, No apparent distress, - - [place]. HEENT: Atraumatic, PERRLA, EOMI, Normocephalic Oropharynx:: Dry mucosa Neck:: Supple, Trachea midline. Negative for: JVD, bilateral Cardiac:: Regular rate, Regular rhythm, Normal S1, Normal S2. Negative for: Murmur Lungs: Clear to auscultation, Excusion symmetrical. Negative for: Rhonchi, Wheezes Abdomen:: Bowel sounds x 4, Soft, Non-tender, Non-distended. Negative for: Hepatosplenomegaly Extremities:: Negative for: Cyanosis, Edema Neurological: Neuro grossly intact Skin:: Negative for: Lesions, Rash, Petechiae, Ecchymosis Psychiatric:: Appropriate affect, Euthymic Lymphatics:: Negative for: Cervical lymphadenopathy, Supraclavicular lymphadenopathy, Axillary lymphadenopathy Laboratory Data: Laboratory Tests WBC 3.3 L (4.4-11.0) K/mm3 RBC 3.36 L (4.2-5.4) M/mm3 Hgb 10.8 L (12.0-15.0) g/dl Assessment and Plan Small cell lung cancer with multiple bilateral lung nodules less than 1 cm, right hilar adenopathy, subcarinal adenopathy and preaortic adenopathy. Also has T8 vertebral deformity which is not active on PET/CT or bone scan. Extensive disease/Stage IV(TX N2 M1). PS 1. Counts and electrolytes are OK for therapy. Plan is to proceed with C1 D15 Irinotecan. Will do 2 cycles and reassess with CT scan. RTC 2 weeks with CBC, CMP/Mag for C2D1 Cisplatin and Irinotecan. Medications: Prescriptions This Visit Medication Instructions Recorded Lidocaine/Prilocaine 30 gm TP DAILY PRN PRN #1 cream..g. 10/07/17 [Lidocaine-Prilocaine Cream] Primary Care Provider: Andrés Helms MD Referring Provider: Denny Moses MD - Problem List (1) Small cell lung cancer in adult Status: Chronic (2) Chemotherapy management, encounter for Status: Acute Code Visit Office Visits / Consults: [id number] OV L5 Est 10/28/17 0929 <Electronically signed by Denny Moses MD> Date Denny Moses MD Cosigner Signature: Date (if applicable) CC: CBC W/DIFF, AUTOMATED Collected: 10/28/2017 Status: F Source: [place] 8:30 AM [facility] REPOSITORY TYPE CODE TESTS RESULT OUT OF RANGE REFERENCE UNITS LAB L100.1000 4.4-11.0 K/mm3 Low WBC 3.3 LAB L100.1200 4.2-5.4 M/mm3 Low RBC 3.36 LAB L100.1300 12.0-15.0 g/dl Low HGB 10.8 LAB L100.1400 37-47 % Low HCT 32.8 LAB L100.1500 81-99 fL Normal MCV 97.6 LAB L100.1600 27.0-32.0 pg High MCH 32.1 LAB L100.1700 32-36 g/gl Normal MCHC 32.9 LAB L100.1810 11.6-14.6 % Normal RDW CV 12.4 LAB L100.1820 35.1-43.9 fl Normal RDW SD 43.9 LAB L100.1900 150-450 K/mm3 Normal PLT 228 LAB L100.2000 6.2-12.0 fl Normal MPV 8.5 LAB L100.2100 47-70 % Normal NEUT% 55.5 LAB L100.2200 19-41 % Normal LY% 32.8 LAB L100.2300 0-10 % Normal MONO% 8.1 LAB L100.2400 0-5 % Normal EO% 3.0 LAB L100.2500 0-1 % Normal BASO% 0.6 LAB L100.2550 0.0-0.9 % Normal IM GRAN % 0.000 Result Comment: IG% - Immature Granulocytes (promyelocytes, myelocytes and metamyelocytes) > 1% indicates that a LEFT SHIFT is Present. LAB L100.2620 2.0-7.7 X10 3/uL Low Absolute Neut 1.8 LAB L100.2720 0.83-4.51 X10 3/ul Normal Absolute Lymph 1.09 Performed By: #### L100.0100 #### [facility] [address] [place], [address] COMPREHENSIVE METABOLIC Collected: 10/28/2017 Status: F Source: [facility] 8:30 AM [facility] REPOSITORY Order Comment: Reason for Laboratory Test Chemotherapy TYPE CODE TESTS RESULT OUT OF RANGE REFERENCE UNITS LAB L501.0100 74-106 mg/dL Normal GLU 95 Result Comment: Please note revised GLUCOSE reference range effective 2017. LAB L501.1000 7-18 mg/dL Normal BUN 18 LAB L501.1100 0.55-1.02 mg/dL Normal CREAT,SERUM 0.81 Result Comment: The validity of the calculated GFR AND GFRAA in patients over 70 years has not been determined. Clinical correlation is essential. LAB L501.1110 >60 mL/min Normal EST GFR 77 Result Comment: Non- GFR Calc LAB L501.1115 >60 mL/min Normal EST GFR - AA 93 Result Comment: GFR Calc LAB L501.1255 ml/min Normal Estimated CRCL 70.01 LAB L501.1300 10-20 RATIO High BUN/CRE 22.2 LAB L501.1500 6.4-8. g/dL Normal 2 T PROT 6.7 LAB L501.1800 3.2-5. g/dL Low 0 ALB 3.1 LAB L501.1950 2.2-4. g/dL Normal 2 GLOB 3.6 LAB L501.2000 0.9-2. RATIO Normal 4 A/G 0.9 LAB L501.2200 8.5-10 mg/dL Normal .1 CA 8.7 LAB L501.4100 15-37 U/L Normal AST 15 LAB L501.4305 45-117 U/L Normal ALK P 89 LAB L501.4405 13-56 U/L Normal ALT 19 Result Comment: Please note revised ALT reference range effective 2017. LAB L501.4600 0.20-1.00 mg/dL Normal T BILI 0.30 LAB L501.5300 136-145 mmol/L Normal NA 139 LAB L501.5600 3.5-5.1 mmol/L Normal K 3.8 LAB L501.5900 98-107 mmol/L Normal CL 103 LAB L501.6100 21.0-32.0 mmol/L Normal CO2 29.0 LAB L501.6200 5-15 Normal GAP 7 Performed By: #### L500.4050, L501.2300, L501.5200 #### [facility] [address] [place], [place], [id number] PHOSPHORUS Collected: 10/28/2017 Status: F Source: [place] 8:30 AM [facility] REPOSITORY Order Comment: Reason for Laboratory Test Chemotherapy TYPE CODE TESTS RESULT OUT OF RANGE REFERENCE UNITS LAB L501.2300 2.5-4.9 mg/dL Normal PHOS 3.8 Performed By: #### L500.4050, L501.2300, L501.5200 #### [facility] [address] [place], [place], [id number] MAGNESIUM Collected: 10/28/2017 Status: F Source: [place] 8:30 AM [facility] REPOSITORY Order Comment: Reason for Laboratory Test Chemotherapy TYPE CODE TESTS RESULT OUT OF RANGE REFERENCE UNITS LAB L501.5200 1.6-2.6 mg/dL Normal MG 2.1 Result Comment: Please note revised Magnesium reference range effective 2017. Performed By: #### L500.4050, L501.2300, L501.5200 #### [facility] [address] [place], [address] EMERGENCY DEPARTMENT Observed: 10/24/2017 Status: F Source: [place] SUMMARY 4:05 PM [facility] REPOSITORY [facility] Medical Records Department [address] [place] [address] Emergency Department Summary 10/17/17 1600 MR#: [id number] Acct: [id number] Name: WALI HALL Rep #: [id number] : 1960 57 From: Luis M Bella DO PCP: Andrés Helms MD Status: DEP ER - ER Visit Summary Date of Service: 10/17/17 Chief Complaint: Syncope History of Present Illness: The patient is a 57 F who received her first chemotherapy treatment with Dr. Moses on Saturday. She is being treated for stage IV lung cancer with SIADH. Patient states that she was constipated from Saturday until Saturday evening. Wed evening she had a hard formed stool. Since this morning she has been having diarrhea. states that she is pretty much been in the bathroom since this morning. This afternoon she was having diarrhea when she sustained a syncopal episode. She fell off the toilet striking her forehead. She notes an abrasion to the forehead. She states she feels very anxious and weak. She has not had any nausea or vomiting. Physical Examination: Blood pressure 94/58 (patient states that she is typically 120 systolic) heart rate is 79 respirations are 20 pulse ox is 100% temperature 97.6 Gen: Well-nourished well-developed Head: Normocephalic small contusion/abrasion to the left forehead Eyes: Perrl EOMI ENT: TMs clear no rhinorrhea moist mucous membranes Neck: Supple no lymphadenopathy no JVD nontender CVS: Regular rate rhythm no murmurs normal S1-S2 Respiratory: No distress clear to auscultation bilaterally right anterior chest shows recent plan treatment of a port with stitches still in place. No evidence of infection. Abdomen: Soft nontender nondistended normal bowel sounds no masses Back: Nontender Extremity: Nontender no edema Skin: Patient appears pale Neuro: alert orientated 3 CN II-XII intact normal strength sensation reflexes gait cerebellar Psych: Normal affect normal mood Test Results: CBC within normal range chemistry showed a BUN of 31 and creatinine 0.8. Lactic acid troponin essentially negative. Chest x-ray brain CT negative. Emergency Department Course and Treatment: She received 2 L of IV fluids. She has been up walking around. She states she feels significantly better. She will be given a dose of Imodium. She has not had any diarrhea here in the department. I spoke with Dr. Moses who is comfortable with her plan of discharge continued oral hydration and Imodium. Should her symptoms continue past tomorrow she is to call the office. Return if worsening. Impression: 1. Vasovagal syncope 2. Dehydration 3. Stage IV lung cancer 5. Syndrome of inappropriate antidiuretic hormone. 6. Diarrhea This note was generated with [employer]ters[employer] software. It may contain incorrect words, spelling, and punctuation that were not noted in review of the chart prior to signing ED Disposition - Plan for ED Patient: Disposition: Home or Assisted Living Chief Complaint: Syncope Instructions: ED Syncope Vasovagal, ED Dehydration Referrals: Andrés Helms MD [Primary Care Provider] - Denny Moses MD [NON-STAFF] - (call office in 24 hours if diarrhea continues dispite imodium) Additional Instructions: Imodium as needed for diarrhea Return if worsening or concerns. What to do if you have Problems For any increased pain, shortness of breath, bleeding, nausea or vomiting, chest pain, or any unexpected problems, contact your Primary Care Provider. Call [facility] ([phone]) or report to the closest Emergency Room. Call 911 if necessary. 10/24/17 9612 <Electronically signed by Luis M Bella DO> Date Luis M Bella DO Cosigner Signature (If Indicated): Date CC: Andrés Helms MD 12 LEAD ELECTROCARDIOGRAM Observed: 10/22/2017 Status: F Source: [place] 2:07 PM [facility] REPOSITORY [facility] Cardiovascular Services [address] [place] [address] 12 Lead EKG 10/17/17 1608 MR#: [id number] Acct: [id number] Name: WALI HALL Rep #: [id number] : 1960 57 From: Félix Taylor MD Attending Dr: Status: DEP ER Ordering Dr: Luis M Bella DO Date: 10/17/17 Location: ED Sex: F C Admitted: Test Reason : SYNCOPE Blood Pressure : / mmHG Vent. Rate : 074 BPM Atrial Rate : 074 BPM P-R Int : 158 ms QRS Dur : 080 ms QT Int : 380 ms P-R-T Axes : 082 068 077 degrees QTc Int : 421 ms Normal sinus rhythm Right atrial enlargement Borderline ECG Confirmed by NAREN GONZALEZ, FÉLIX ([id number]), video news editor MARSHA CARROLL ([id number]) on 10/22/2017 2:06:54 PM Referred By: ISABELL Confirmed By:FÉLIX TAYLOR MD 10/22/17 1406 Date Félix Taylor MD CC: Luis M Bella DO; Andrés Helms MD Signed INTERNAL MEDICINE Observed: 10/21/2017 Status: F Source: [place] OFFICE VISIT 8:19 AM [facility] REPOSITORY [facility] [address] [place] [address] OFFICE VISIT Date of Service: 10/18/17 MR#: [id number] Acct: [id number] Name: WALI HALL Rep #: [id number] : 1960 Provider: Andrés Helms MD Age/Sex: 57/F Location: [facility] Status: Signed Intake Vital Signs10/18/17 Body Mass Index (BMI) 22.7 10/18/17 Blood Pressure 134/85 10/18/17 Height 5 ft 6 in Intake Visit Reasons: 1 mo f/u Chief Complaint: Follow - up. Is patient in pain?: No Allergies No Known Allergies Allergy (Verified 10/17/17 15:25) Medications Levetiracetam 750 mg PO BID 09/12/17 [History Confirmed 10/18/17] Lidocaine/Prilocaine [Lidocaine-Prilocaine Cream] 30 gm TP DAILY PRN PRN #1 cream..g. 10/07/17 [Rx Confirmed 10/18/17] Ondansetron HCl [Zofran] 8 mg PO Q8H PRN PRN #30 tab 10/07/17 [Rx Confirmed 10/18/17] Sodium Chloride 1 gm PO TID #90 tab 10/11/17 [Rx Confirmed 10/18/17] PFSH Medical History Educational circumstance (Acute) Small cell lung cancer in adult (Chronic) Lung nodule (Acute) Seizure disorder (Chronic) Tobacco dependence in remission (Chronic) Abnormal CAT scan (Acute) TGA (transient global amnesia) (Acute) Hyponatremia (Acute) med port placement (Acute) Surgical History H/O breast augmentation (Acute) History of carpal tunnel release (Acute) hammer toe repair (Acute) Family History Mother Breast cancer Father Cancer brain and lung Sister Aneurysm Social History Smoking Status: Former smoker quit date: 08/10/17 pack-years: 80 how long ago did patient quit smokin alcohol intake: current alcohol intake frequency: a few times a month what type of physical activity do you participate in: none HPI HPI Chief Complaint: Follow - up. Details: WALI HALL, is a 57yo F who presents to the office today for follow up. She started Chemotherapy on Saturday for SCLC. For the most part, she tolerated chemo well however, she experienced an episode of diarrhea through from Saturday night through and what appears to have been a Syncopal episode. She was seen in the ER however, work up and vitals were without any significant abnormality. She denies any other complaints at this time. ROS Const Constitutional: No body ache, chills, headache(s), weakness or fever(s) Eyes Eyes: No blurry vision, change in vision, eye pain or discharge ENT ENT: No headache(s), abnormal hearing, ear pain, ear pressure, tinnitus, dizziness/vertigo or balance problems Resp Respiratory: No cough, shortness of breath or wheezing Cardio Cardiology: No chest pain at rest, shortness of breath, dyspnea on exertion or palpitations Gastro GI: No abdominal pain or bloating Neuro Neurology: No headache(s), weakness or abnormal hearing Aller/Imm Allergy/Immunologic: No wheezing Exam Const General: cooperative, no acute distress Orientation: alert, awake, oriented x3 HENMT Head: normal to inspection, normocephalic, atraumatic Ears: hearing grossly normal bilaterally Resp Effort AND Inspection: normal respiratory effort, able to speak in complete sentences Auscultation: Bilateral: Clear to Auscultation Cardio Rate: regular rate Rhythm: regular rhythm Heart Sounds: S1 normal, S2 normal GI Palpation: soft, no hepatosplenomegaly Neuro General: alert, awake, oriented x3, CN's II-XI intact bilaterally, moves all extremities Extrem General: no pedal edema Psych Appearance: grossly normal Affect: normal affect Assessment AND Plan 1. Small cell lung cancer in adult C34.90 Plan Following with Oncology and has started Chemotherapy. Episode of diarrhea after chemotherapy is now said to have subsided. No other complaints at this time. Continue plan as per oncology. 2. Syncope R55 Plan Her describes an episode of what may have best been a syncope. Patient however states that she recall the event clearly. Possibly due to dehydration associated with reduced oral intake and diarrhea. No significant abnormality with labs. No symptoms or signs of infection. Advised to increase her fluid intake to match excessive output such as diarrhea. 3. 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 Last Sodium level was 132. Continue sodium tablets as recommended. Follow up in 2 months. This note was generated with [employer] dictation software. It may contain incorrect words, spelling, and punctuation that were not noted in checking the note before signing. Plan Detail Follow Up 2 Months Coding Level of Care Code Off vis,est,level 3 Diagnoses Small cell lung cancer in adult C34.90 Syncope R55 Hyponatremia E87.1 10/21/17 0819 <Electronically signed by Andrés Helms MD> Date Andrés Helms MD Cosigner Signature: Date (if applicable) CC: CBC W/DIFF, AUTOMATED Collected: 10/21/2017 Status: F Source: [place] 8:00 AM [facility] REPOSITORY TYPE CODE TESTS RESULT OUT OF RANGE REFERENCE UNITS LAB L100.1000 4.4-11.0 K/mm3 Normal WBC 4.6 LAB L100.1200 4.2-5.4 M/mm3 Low RBC 3.62 LAB L100.1300 12.0-15.0 g/dl Low HGB 11.9 LAB L100.1400 37-47 % Low HCT 35.1 LAB L100.1500 81-99 fL Normal MCV 97.0 LAB L100.1600 27.0-32.0 pg High MCH 32.9 LAB L100.1700 32-36 g/gl Normal MCHC 33.9 LAB L100.1810 11.6-14.6 % Normal RDW CV 12.4 LAB L100.1820 35.1-43.9 fl Normal RDW SD 43.4 LAB L100.1900 150-450 K/mm3 Normal PLT 195 LAB L100.2000 6.2-12.0 fl Normal MPV 8.8 LAB L100.2100 47-70 % Normal NEUT% 66.0 LAB L100.2200 19-41 % Normal LY% 22.6 LAB L100.2300 0-10 % Normal MONO% 7.0 LAB L100.2400 0-5 % Normal EO% 3.3 LAB L100.2500 0-1 % Normal BASO% 0.4 LAB L100.2550 0.0-0.9 % Normal IM GRAN % 0.700 Result Comment: IG% - Immature Granulocytes (promyelocytes, myelocytes and metamyelocytes) > 1% indicates that a LEFT SHIFT is Present. LAB L100.2620 2.0-7.7 X10 3/uL Normal Absolute Neut 3.0 LAB L100.2720 0.83-4.51 X10 3/ul Normal Absolute Lymph 1.03 Performed By: #### L100.0100 #### [facility] [address] [place], [address] COMPREHENSIVE METABOLIC Collected: 10/21/2017 Status: F Source: [place] PROFIL 8:00 AM [facility] REPOSITORY Order Comment: Reason for Laboratory Test Chemotherapy TYPE CODE TESTS RESULT OUT OF RANGE REFERENCE UNITS LAB L501.0100 74-106 mg/dL Normal GLU 89 Result Comment: Please note revised GLUCOSE reference range effective 2017. LAB L501.1000 7-18 mg/dL Normal BUN 16 LAB L501.1100 0.55-1.02 mg/dL Normal CREAT,SERUM 0.75 Result Comment: The validity of the calculated GFR AND GFRAA in patients over 70 years has not been determined. Clinical correlation is essential. LAB L501.1110 >60 mL/min Normal EST GFR 85 Result Comment: Non- GFR Calc LAB L501.1115 >60 mL/min Normal EST GFR - AA 102 Result Comment: GFR Calc LAB L501.1255 ml/min Normal Estimated CRCL 75.61 LAB L501.1300 10-20 RATIO High BUN/CRE 21.4 LAB L501.1500 6.4-8. g/dL Normal 2 T PROT 6.8 LAB L501.1800 3.2-5. g/dL Normal 0 ALB 3.2 LAB L501.1950 2.2-4. g/dL Normal 2 GLOB 3.6 LAB L501.2000 0.9-2. RATIO Normal 4 A/G 0.9 LAB L501.2200 8.5-10 mg/dL Low .1 CA 8.4 LAB L501.4100 15-37 U/L Normal AST 15 LAB L501.4305 45-117 U/L Normal ALK P 78 LAB L501.4405 13-56 U/L Normal ALT 30 Result Comment: Please note revised ALT reference range effective 2017. LAB L501.4600 0.20-1.00 mg/dL Normal T BILI 0.60 LAB L501.5300 136-145 mmol/L Low NA 135 LAB L501.5600 3.5-5.1 mmol/L Normal K 4.2 LAB L501.5900 98-107 mmol/L Normal CL 99 LAB L501.6100 21.0-32.0 mmol/L Normal CO2 28.0 LAB L501.6200 5-15 Normal GAP 8 Performed By: #### L500.4050, L501.2300, L501.5200 #### [facility] [address] [place], [address] PHOSPHORUS Collected: 10/21/2017 Status: F Source: [place] 8:00 AM [facility] REPOSITORY Order Comment: Reason for Laboratory Test Chemotherapy TYPE CODE TESTS RESULT OUT OF RANGE REFERENCE UNITS LAB L501.2300 2.5-4.9 mg/dL Normal PHOS 2.9 Performed By: #### L500.4050, L501.2300, L501.5200 #### [facility] [address] [place], [address] MAGNESIUM Collected: 10/21/2017 Status: F Source: [place] 8:00 AM [facility] REPOSITORY Order Comment: Reason for Laboratory Test Chemotherapy TYPE CODE TESTS RESULT OUT OF RANGE REFERENCE UNITS LAB L501.5200 1.6-2.6 mg/dL Normal MG 2.0 Result Comment: Please note revised Magnesium reference range effective 2017. Performed By: #### L500.4050, L501.2300, L501.5200 #### [facility] [address] [place], [place], [address] SURGERY VISIT REPORT Observed: 10/18/2017 Status: F Source: [place] 2:06 PM [facility] REPOSITORY [facility] [address] [place] [address] [address] [place] [address] OFFICE VISIT Date of Service: 10/18/17 MR#: [id number] Acct: [id number] Name: WALI HALL Rep #: [id number] : 1960 Provider: Narinder Vizcarra MD Age/Sex: 57/F Location: [facility] Status: Signed Intake Intake Visit Reasons: Suture removal port placement 10/10 TC Chief Complaint: Chemotherapy Education- Cisplatin/irinotecan Dye Beck Reel Operator Required: No Is patient in pain?: No Allergies No Known Allergies Allergy (Verified 10/18/17 13:03) Medications Levetiracetam 750 mg PO BID 09/12/17 [History Confirmed 10/18/17] Lidocaine/Prilocaine [Lidocaine-Prilocaine Cream] 30 gm TP DAILY PRN PRN #1 cream..g. 10/07/17 [Rx Confirmed 10/18/17] Ondansetron HCl [Zofran] 8 mg PO Q8H PRN PRN #30 tab 10/07/17 [Rx Confirmed 10/18/17] Sodium Chloride 1 gm PO TID #90 tab 10/11/17 [Rx Confirmed 10/18/17] PFSH Medical History Educational circumstance (Acute) Small cell lung cancer in adult (Chronic) Lung nodule (Acute) Seizure disorder (Chronic) Tobacco dependence in remission (Chronic) Abnormal CAT scan (Acute) TGA (transient global amnesia) (Acute) Hyponatremia (Acute) Surgical History H/O breast augmentation (Acute) History of carpal tunnel release (Acute) hammer toe repair (Acute) med port placement (Acute) Family History Mother Breast cancer Father Cancer brain and lung Sister Aneurysm Social History Smoking Status: Former smoker quit date: 08/10/17 pack-years: 80 how long ago did patient quit smokin alcohol intake: current alcohol intake frequency: a few times a month what type of physical activity do you participate in: none HPI HPI HPI: WALI HALL, is a 57 F who presents to the office today for follow-up after port placement. The patient is using her port with no issues. She has no complaints at this time. Exam Chest Other: Patient's right chest port incision is clean dry and intact and healing well. There is no sign of erythema or ecchymosis. Assessment AND Plan Problems 1. Encounter for adjustment or management of vascular access device Z45.2 Plan 1. Patient is doing well with her port. She is using it for treatments. She will follow-up if there are any problems or at the end of her treatment for removal. Narinder Vizcarra MD Pager: [facility] [address] [place] [address] Office: Coding Level of Care Code Global Post Op Diagnoses Encounter for adjustment or management of vascular access device Z45.2 10/18/17 1406 <Electronically signed by Narinder Vizcarra MD> Date Narinder Vizcarra MD Cosigner Signature: Date (if applicable) CC: Andrés Helms MD URINALYSIS, COMPLETE Collected: 10/17/2017 Status: F Source: [place] 4:36 PM [facility] REPOSITORY Order Comment: Order Date: 10/17/17 How was Urine Obtained? CLEAN CATCH TYPE CODE TESTS RESULT OUT OF RANGE REFERENCE UNITS LAB L400.3000 Yellow COLOR Normal Yellow LAB L400.3050 Clear Normal CLARITY Clear LAB L400.3200 Normal mg/dl Normal GLUCOSE, UR Normal LAB L400.3300 Negative mg/dL Normal BILIRUBIN URINE Negative LAB L400.3400 Negative mg/dl Normal KETONE UR Negative LAB L400.3465 1.002-1.030 Normal SP.GR. DIPSTX 1.020 LAB L400.3550 5.0 - 8.0 pH UR Normal 5.0 LAB L400.3600 Negative mg/dl PROT Normal DIPSTX Negative LAB L400.3700 Normal mg/dl Normal UROBILI Normal LAB L400.3750 Negative Normal NITRITE UR Negative LAB L400.3780 Negative /ul High OCCULT BLOOD-UR 150 LAB L400.3800 Negative /ul LEUK Normal ESTERASE Negative LAB L400.4050 0-5 /hpf WBC 0 Normal SEEN LAB L400.4100 0-5 /hpf Normal RBC-UA 5-10 SEEN LAB L400.4150 5-10 /hpf SQUAM Normal EPI 0-5 SEEN LAB L400.4300 None Seen /hpf 0 Normal BACTERIA SEEN LAB L400.4350 <or=2+ /hpf 0 Normal MUCUS, URINE SEEN Performed By: #### L400.0001 #### [facility] [address] [place], [place], [address] CBC W/DIFF, AUTOMATED Collected: 10/17/2017 Status: F Source: [place] 4:20 PM [facility] REPOSITORY TYPE CODE TESTS RESULT OUT OF RANGE REFERENCE UNITS LAB L100.1000 4.4-11.0 K/mm3 Normal WBC 8.6 LAB L100.1200 4.2-5.4 M/mm3 Low RBC 3.67 LAB L100.1300 12.0-15.0 g/dl Normal HGB 12.1 LAB L100.1400 37-47 % Low HCT 35.6 LAB L100.1500 81-99 fL Normal MCV 97.0 LAB L100.1600 27.0-32.0 pg High MCH 33.0 LAB L100.1700 32-36 g/gl Normal MCHC 34.0 LAB L100.1810 11.6-14.6 % Normal RDW CV 12.5 LAB L100.1820 35.1-43.9 fl Normal RDW SD 42.7 LAB L100.1900 150-450 K/mm3 Normal PLT 235 LAB L100.2000 6.2-12.0 fl Normal MPV 8.8 LAB L100.2100 47-70 % High NEUT% 83.4 LAB L100.2200 19-41 % Low LY% 13.4 LAB L100.2300 0-10 % Normal MONO% 2.6 LAB L100.2400 0-5 % Normal EO% 0.4 LAB L100.2500 0-1 % Normal BASO% 0.1 LAB L100.2550 0.0-0.9 % Normal IM GRAN % 0.100 Result Comment: IG% - Immature Granulocytes (promyelocytes, myelocytes and metamyelocytes) > 1% indicates that a LEFT SHIFT is Present. LAB L100.2620 2.0-7.7 X10 3/uL Normal Absolute Neut 7.2 LAB L100.2720 0.83-4.51 X10 3/ul Normal Absolute Lymph 1.15 Performed By: #### L100.0100 #### [facility] [address] [place], [address] COMPREHENSIVE METABOLIC Collected: 10/17/2017 Status: F Source: [place] LEON 4:20 PM [facility] REPOSITORY Order Comment: 'TROP' Serial specimen #1, #2, #3, or #4: 1 TYPE CODE TESTS RESULT OUT OF RANGE REFERENCE UNITS LAB L501.0100 74-106 mg/dL Normal GLU 95 Result Comment: Please note revised GLUCOSE reference range effective 2017. LAB L501.1000 7-18 mg/dL High BUN 31 LAB L501.1100 0.55-1.02 mg/dL Normal CREAT,SERUM 0.88 Result Comment: The validity of the calculated GFR AND GFRAA in patients over 70 years has not been determined. Clinical correlation is essential. LAB L501.1110 >60 mL/min Normal EST GFR 70 Result Comment: Non- GFR Calc LAB L501.1115 >60 mL/min Normal EST GFR - AA 84 Result Comment: GFR Calc LAB L501.1255 ml/min Normal Estimated CRCL 64.44 LAB L501.1300 10-20 RATIO High BUN/CRE 35.1 LAB L501.1500 6.4-8. g/dL Low 2 T PROT 6.3 LAB L501.1800 3.2-5. g/dL Low 0 ALB 3.1 LAB L501.1950 2.2-4. g/dL Normal 2 GLOB 3.2 LAB L501.2000 0.9-2. RATIO Normal 4 A/G 1.0 LAB L501.2200 8.5-10 mg/dL Low .1 CA 8.3 LAB L501.4100 15-37 U/L Normal AST 21 LAB L501.4305 45-117 U/L Normal ALK P 71 LAB L501.4405 13-56 U/L High ALT 67 Result Comment: Please note revised ALT reference range effective 2017. LAB L501.4600 0.20-1.00 mg/dL Normal T BILI 0.50 LAB L501.5300 136-145 mmol/L Low NA 132 LAB L501.5600 3.5-5.1 mmol/L Normal K 4.3 LAB L501.5900 98-107 mmol/L Low CL 97 LAB L501.6100 21.0-32.0 mmol/L Normal CO2 28.0 LAB L501.6200 5-15 Normal GAP 7 Performed By: #### L500.4050, L501.2450, L501.4010 #### [facility] [address] [place], [address] LIPASE Collected: 10/17/2017 Status: F Source: [place] 4:20 PM [facility] REPOSITORY Order Comment: 'TROP' Serial specimen #1, #2, #3, or #4: 1 TYPE CODE TESTS RESULT OUT OF RANGE REFERENCE UNITS LAB L501.2450 73-393 U/L Normal LIPASE 265 Performed By: #### L500.4050, L501.2450, L501.4010 #### [facility] [address] [place], [address] TROPONIN-I Collected: 10/17/2017 Status: F Source: [place] 4:20 PM [facility] REPOSITORY Order Comment: 'TROP' Serial specimen #1, #2, #3, or #4: 1 TYPE CODE TESTS RESULT OUT OF RANGE REFERENCE UNITS LAB L501.4010 <0.06 ng/mL Normal < 0.02 TROPONIN-I Result Comment: TROPONIN-I EXPECTED VALUES <0.05 NEGATIVE 0.06 - 0.59 AT RISK OF DC > OR = 0.60 SUGGEST DC Performed By: #### L500.4050, L501.2450, L501.4010 #### [facility] [address] [place], [address] LACTIC ACID Collected: 10/17/2017 Status: F Source: [place] 4:20 PM [facility] REPOSITORY Order Comment: Yes/No query for Sepsis Lactate Rule Y TYPE CODE TESTS RESULT OUT OF RANGE REFERENCE UNITS LAB L503.6005 0.4-2.0 mmol/L Normal LACTIC ACID 1.7 Performed By: #### L503.6005 #### [facility] [address] [place], [address] PROTHROMBIN TIME W/INR Collected: 10/17/2017 Status: F Source: [place] 4:20 PM [facility] REPOSITORY TYPE CODE TESTS RESULT OUT OF RANGE REFERENCE UNITS LAB L300.4150 11.7-14.9 SECONDS Normal PROTIME 13.1 LAB L300.4200 Normal INR 1.0 Performed By: #### L300.3900, L300.4310 #### [facility] [address] [place], [address] PARTIAL THROMBOPLAST Collected: 10/17/2017 Status: F Source: [place] TIME 4:20 PM [facility] REPOSITORY TYPE CODE TESTS RESULT OUT OF REFERENCE UNITS RANGE LAB L300.4310 24.1-36.2 Seconds Low PTT 23.8 Performed By: #### L300.3900, L300.4310 #### [facility] [address] [place], [address] CHEST 1 VIEW Observed: 10/17/2017 Status: F Source: [place] (PORTABLE) 4:00 PM [facility] REPOSITORY [facility] Imaging Services [address] [place] [address] Chest 1 View (Portable) MR#: [id number] Acct: [id number] Name: WALI HALL Rep #: [id number] : 1960 F 57 From: Eyad Long DO PCP: Andrés Helms MD Status: PRE ER Study: Chest 1 View (Portable) Date of Exam: 10/17/17 Exam# [id number] Ordering Dr: Luis M Bella DO STUDY: X-RAY CHEST REASON FOR EXAM: Female, 57 years old. Syncope. Recent chemotherapy. Diarrhea. TECHNIQUE: Single AP portable view of the chest. COMPARISON: October 10, 2017 FINDINGS: Stable right jugular Port-A-Cath Lungs are mildly hyperexpanded. There is coarsened interstitial markings without new infiltrate or mass. There is no demonstrated pleural abnormality. Normal size heart. Normal mediastinum and jens. Normal visualized pulmonary arteries. Normal visualized aortic arch and descending thoracic aorta. No visualized osseous changes. Again seen are bilateral breast implants. There is no demonstrated abnormality of the visualized soft tissue structures of the upper abdomen. RAD/Chest 1 View (Portable) IMPRESSION: No acute cardiopulmonary disease or interval change. Electronically Signed: Eyad Long DO at 16:21 EST Tel [phone], Service support , CC: Luis M Bella DO; Andrés Helms MD Coal Gasification Technician: Signed BRAIN/HEAD WITHOUT Observed: 10/17/2017 Status: F Source: [place] CONTRAST 4:00 PM [facility] REPOSITORY [facility] Imaging Services [address] [place] [address] Brain/Head without Contrast MR#: [id number] Acct: [id number] Name: WALI HALL Rep #: [id number] : 1960 F 57 From: Eyad Long DO PCP: Andrés Helms MD Status: REG ER Study: Brain/Head without Contrast Date of Exam: 10/17/17 Exam# [id number] Ordering Dr: Luis M Bella DO STUDY: CT BRAIN WITHOUT CONTRAST REASON FOR EXAM: Female, 57 years old. Syncope. Hit head. Abrasion on the left forehead. RADIATION DOSAGE (If Supplied By Facility): CTDIvol = ( 44.99 ) mGy, DLP = ( 812.98 ) mGycm TECHNIQUE: Transaxial CT imaging of the brain was performed without administration of intravenous contrast material. Individualized dose optimization techniques were used for this CT. COMPARISON: CTA of the head, August 16, 2017. MRI of the brain, August 17, 2017. FINDINGS: Normal soft tissue structures. Normal calvarium. Normal size ventricles and extra-axial spaces for the patient's age. Normal white matter tracts of the cerebral hemispheres. Normal basal ganglia and thalami. Normal brainstem. Normal cerebellum. There is no intracranial hemorrhage. There are no findings of an acute ischemic infarction. Normal visualized paranasal sinuses. CT/Brain/Head without Contrast IMPRESSION: Normal unenhanced CT scan of the brain. Electronically Signed: Eyad BouckvilleDO at 17:18 EST Tel [phone], Service support , CC: Luis M Bella DO; Andrés Helms MD Coal Gasification Technician: Signed CBC W/DIFF, AUTOMATED Collected: 10/14/2017 Status: F Source: [place] 8:50 AM [facility] REPOSITORY TYPE CODE TESTS RESULT OUT OF RANGE REFERENCE UNITS LAB L100.1000 4.4-11.0 K/mm3 Normal WBC 5.9 LAB L100.1200 4.2-5.4 M/mm3 Low RBC 3.97 LAB L100.1300 12.0-15.0 g/dl Normal HGB 12.9 LAB L100.1400 37-47 % Normal HCT 37.9 LAB L100.1500 81-99 fL Normal MCV 95.5 LAB L100.1600 27.0-32.0 pg High MCH 32.5 LAB L100.1700 32-36 g/gl Normal MCHC 34.0 LAB L100.1810 11.6-14.6 % Normal RDW CV 12.5 LAB L100.1820 35.1-43.9 fl Normal RDW SD 43.4 LAB L100.1900 150-450 K/mm3 Normal PLT 270 LAB L100.2000 6.2-12.0 fl Normal MPV 8.6 LAB L100.2100 47-70 % Normal NEUT% 64.8 LAB L100.2200 19-41 % Normal LY% 19.6 LAB L100.2300 0-10 % High MONO% 10.8 LAB L100.2400 0-5 % Normal EO% 4.1 LAB L100.2500 0-1 % Normal BASO% 0.5 LAB L100.2550 0.0-0.9 % Normal IM GRAN % 0.200 Result Comment: IG% - Immature Granulocytes (promyelocytes, myelocytes and metamyelocytes) > 1% indicates that a LEFT SHIFT is Present. LAB L100.2620 2.0-7.7 X10 3/uL Normal Absolute Neut 3.8 LAB L100.2720 0.83-4.51 X10 3/ul Normal Absolute Lymph 1.15 Performed By: #### L100.0100 #### [facility] [address] [place], [place], [address] COMPREHENSIVE METABOLIC Collected: 10/14/2017 Status: F Source: [place] 8:49 AM [facility] REPOSITORY Order Comment: Reason for Laboratory Test Chemotherapy TYPE CODE TESTS RESULT OUT OF RANGE REFERENCE UNITS LAB L501.0100 74-106 mg/dL Normal GLU 89 Result Comment: Please note revised GLUCOSE reference range effective 2017. LAB L501.1000 7-18 mg/dL Normal BUN 16 LAB L501.1100 0.55-1.02 mg/dL Normal CREAT,SERUM 0.76 Result Comment: The validity of the calculated GFR AND GFRAA in patients over 70 years has not been determined. Clinical correlation is essential. LAB L501.1110 >60 mL/min Normal EST GFR 82 Result Comment: Non- GFR Calc LAB L501.1115 >60 mL/min Normal EST GFR - AA 100 Result Comment: GFR Calc LAB L501.1255 ml/min Normal Estimated CRCL 74.61 LAB L501.1300 10-20 RATIO High BUN/CRE 21.0 LAB L501.1500 6.4-8. g/dL Normal 2 T PROT 7.0 LAB L501.1800 3.2-5. g/dL Normal 0 ALB 3.5 LAB L501.1950 2.2-4. g/dL Normal 2 GLOB 3.5 LAB L501.2000 0.9-2. RATIO Normal 4 A/G 1.0 LAB L501.2200 8.5-10 mg/dL Normal .1 CA 8.6 LAB L501.4100 15-37 U/L Normal AST 21 LAB L501.4305 45-117 U/L Normal ALK P 77 LAB L501.4405 13-56 U/L Normal ALT 24 Result Comment: Please note revised ALT reference range effective 2017. LAB L501.4600 0.20-1.00 mg/dL Normal T BILI 0.80 LAB L501.5300 136-145 mmol/L Low NA 127 LAB L501.5600 3.5-5.1 mmol/L Normal K 4.2 LAB L501.5900 98-107 mmol/L Low CL 92 LAB L501.6100 21.0-32.0 mmol/L Normal CO2 27.0 LAB L501.6200 5-15 Normal GAP 8 Performed By: #### L500.4050, L501.2300, L501.5200 #### [facility] [address] [place], [address] PHOSPHORUS Collected: 10/14/2017 Status: F Source: [place] 8:49 AM [facility] REPOSITORY Order Comment: Reason for Laboratory Test Chemotherapy TYPE CODE TESTS RESULT OUT OF RANGE REFERENCE UNITS LAB L501.2300 2.5-4.9 mg/dL Normal PHOS 3.0 Performed By: #### L500.4050, L501.2300, L501.5200 #### [facility] [address] [facility] [place], [address] MAGNESIUM Collected: 10/14/2017 Status: F Source: [place] 8:49 AM [facility] REPOSITORY Order Comment: Reason for Laboratory Test Chemotherapy TYPE CODE TESTS RESULT OUT OF RANGE REFERENCE UNITS LAB L501.5200 1.6-2.6 mg/dL Normal MG 1.9 Result Comment: Please note revised Magnesium reference range effective 2017. Performed By: #### L500.4050, L501.2300, L501.5200 #### [facility] [address] [facility] [address] [place], [place], [address] OPERATIVE REPORT Observed: 10/10/2017 Status: F Source: [place] 8:25 AM [facility] REPOSITORY [facility] Medical Records Department [address] [place] [address] Operative Report 10/10/17 0824 MR#: [id number] Acct: [id number] Name: WALI HALL Rep #: [id number] : 1960 57 From: Narinder Vizcarra MD PCP: Andrés Helms MD Status: REG SDC Y Location: [place] [address] Problem List (1) Encounter for adjustment or management of vascular access device Status: Acute Report of Operation Date of Procedure: 10/10/17 Pre-Operative Diagnosis: Small cell lung cancer and need for catheter for chemotherapy Post-Operative Diagnosis: Same Surgery/Procedure Performed:: Right chest port utilizing right IJ with ultrasound and fluoroscopy guidance Description of Procedure: After obtaining informed consent patient was brought back to the operating room MAC anesthesia was induced and the right chest and neck were prepped in normal sterile fashion. Ultrasound was used to evaluate both IJ is in the right IJ was selected. Next, using a needle, the right IJ was accessed and a guidewire was passed on into the superior vena cava under fluoroscopy guidance. A small incision was made over the puncture site and the dilator introducer was placed over the guidewire. Next this was capped and the pocket was made for the port. 1% lidocaine with epinephrine was injected in the proposed port site. An incision was made with scalpel. Electrocautery was used to make a pocket under the skin and subcutaneous tissue. Hemostasis was obtained. Next, the catheter was tunneled up to the neck incision site and placed through the introducer. The peel-away introducer was removed and the position of the catheter was confirmed on fluoroscopy. Next, the catheter was trimmed and attached to the port with the locking device. Interrupted 2-0 PDS were used to anchor the port to the chest wall and then the port was placed inside the pocket. The pocket was then flushed with saline and the port irrigated with saline. There was good blood return and the port flushed easily. Next, heparin was injected into the port. The skin was closed with subcutaneous interrupted 3-0 Vicryl sutures and interrupted skin 3-0 nylon sutures. A single 3-0 Vicryl sutures placed under the skin at the neck incision site. Steri-Strips were placed as well as op sites. Patient tolerated procedure well, was taken to PACU in stable condition. Chest x-ray will be obtained. 10/10/17 0825 <Electronically signed by Narinder Vizcarra MD> Date Narinder Vizcarra MD CC: Narinder Vizcarra MD; Andrés Helms MD Signed DISCHARGE INSTRUCTION Observed: 10/10/2017 Status: F Source: [place] 8:24 AM [facility] REPOSITORY [facility] Medical Records Department [address] [place] [address] Instructions for Home/Discharge Instructions 10/10/17822 MR#: [id number] Acct: [id number] Name: WALI HALL Rep #: [id number] : 1960 57 From: Narinder Vizcarra MD PCP: Andrés Helms MD Status: REG [facility] Discharge Diet: No Restrictions - Pain medication may cause nausea. You should typically eat light foods as you take your pain medication. Discharge Activity: Return to Normal Activity, May Shower - with your bandage in place in 1-2 days after surgery. DO NOT SHOWER WHEN YOUR PORT IS ACCESSED. Call your doctor if your incision/area has: Continuous Slow Oozing, Sudden Increased Bleeding, Increased Pain/ Swelling, Increased Redness Call your doctor if you observe: Fever of 101 or Higher Remove Dressing in (days):: 3 - When you remove the bandage, leave the steri-strips intact until they fall off. Allergies/Adverse Reactions: Allergies No Known Allergies Allergy (Verified 10/09/17 09:57) Medications to take at Discharge Donepezil HCl 10 mg PO QHS 09/12/17 Levetiracetam 750 mg PO BID 09/12/17 Sodium Chloride 1 gm PO TID #90 tab 09/13/17 Lidocaine/Prilocaine [Lidocaine-Prilocaine Cream] 30 gm TP DAILY PRN PRN #1 cream..g. 10/07/17 Ondansetron HCl [Zofran] 8 mg PO Q8H PRN PRN #30 tab 10/07/17 Primary Care Physician: Andrés Helms MD [Primary Care Provider] - Please Follow Up With: Narinder Vizcarra MD When: call tomorrow to make 10 day appt for suture removal [phone] 10/10/17823 <Electronically signed by Narinder Vizcarra MD> Date Narinder Vizcarra MD CC: Andrés Helms MD CXR FOR LINE PLACEMENT Observed: 10/10/2017 Status: F Source: [place] 8:22 AM [facility] REPOSITORY [facility] [place] [address] CXR for Line Placement MR#: [id number] Acct: [id number] Name: WALI HALL Rep #: [id number] : 1960 F 57 From: Ilya Elliott MD PCP: Andrés Helms MD Status: REG [facility] Study: CXR for Line Placement Date of Exam: 10/10/17 Exam# [id number] Ordering Dr: Narinder Vizcarra MD STUDY: X-RAY CHEST REASON FOR EXAM: Female, 57 years old. Port placement. TECHNIQUE: Single AP portable view of the chest. COMPARISON: Comparison is made with prior examination dated August 16, 2017. FINDINGS: A right-sided eden catheter as been placed. The tip is at the junction of the superior vena cava and right atrium. Bilateral breast implants are seen. Stable rim-like capsular calcifications are seen in the right breast implant. The lungs are clear and expanded. Scattered calcified granulomas. There is no demonstrated pleural abnormality. Normal size heart. Normal mediastinum and jens. Normal visualized pulmonary arteries. Normal visualized aortic arch and descending thoracic aorta. Normal visualized thoracic spine. Normal visualized ribs, clavicles, and shoulders. There is no demonstrated abnormality of the visualized soft tissue structures of the upper abdomen. RAD/CXR for Line Placement IMPRESSION: The tip of the right portacatheter is at the junction of the superior vena cava and right atrium. Electronically Signed: Ilya Elliott MD at 10:06 EST Tel [phone], Service support , CC: Narinder Vizcarra MD; Andrés Helms MD Coal Gasification Technician: Signed SURGERY VISIT REPORT Observed: 10/08/2017 Status: F Source: [place] 3:35 PM [facility] [address] [place] [address] OFFICE VISIT Date of Service: 10/08/17 MR#: [id number] Acct: [id number] Name: WALI HALL Rep #: [id number] : 1960 Provider: Narinder Vizcarra MD Age/Sex: 57/F Location: [facility] Status: Signed Intake Vital Signs10/08/17 Height 5 ft 6.5 in 10/08/17 Weight: 145 lb Intake Visit Reasons: PORT PLACEMENT - ALEKSEY Chief Complaint: Chemotherapy Education- Cisplatin/irinotecan Dye Beck Reel Operator Required: No Is patient in pain?: No Allergies No Known Allergies Allergy (Verified 10/08/17 13:00) Medications Donepezil HCl 10 mg PO QHS 09/12/17 [History Confirmed 10/08/17] Levetiracetam 750 mg PO Q12H 09/12/17 [History Confirmed 10/08/17] Sodium Chloride 1 gm PO TID #90 tab 09/13/17 [Rx Confirmed 10/08/17] Lidocaine/Prilocaine [Lidocaine-Prilocaine Cream] 30 gm TP DAILY PRN PRN #1 cream..g. 10/07/17 [Rx Confirmed 10/08/17] Ondansetron HCl [Zofran] 8 mg PO Q8H PRN PRN #30 tab 10/07/17 [Rx Confirmed 10/08/17] PFSH Medical History Educational circumstance (Acute) Small cell lung cancer in adult (Acute) Lung nodule (Acute) Seizure disorder (Chronic) Tobacco dependence in remission (Chronic) Abnormal CAT scan (Acute) TGA (transient global amnesia) (Acute) Hyponatremia (Acute) Surgical History H/O breast augmentation (Acute) History of carpal tunnel release (Acute) hammer toe repair (Acute) Family History Mother Breast cancer Father Cancer brain and lung Sister Aneurysm Social History Smoking Status: Former smoker quit date: 08/10/17 pack-years: 80 how long ago did patient quit smokin alcohol intake: current alcohol intake frequency: a few times a month what type of physical activity do you participate in: none HPI HPI HPI: WALI HALL, is a 57 F who presents to the office today for port placement. The patient had an episode of hyponatremia in August which resulted in her being hospitalized and a CT scan revealed adenopathy in the mediastinum. She had a nevus recently which showed small cell lung cancer. She presents today for evaluation for port placement. ROS General General: Yes weight change and fatigue Cardio Cardiovascular: Yes shortness of breat with exertion; no murmur, pacemaker or heart disease Psych Psychiatric: Yes depression Resp Respiratory: Yes shortness of breath, No cough, No COPD Gastro Gastrointestinal: No abdominal pain, No nausea or vomiting, No diarrhea, No constipation, No blood in stool, No acid reflux, No hemorrhoids, No ulcers, No gallbladder problem, No black,tarry stools Exam Chest Chest palpation AND inspection: normal inspection of the chest Resp Effort AND Inspection: normal respiratory effort Cardio Rate: regular rate Rhythm: regular rhythm Heart Sounds: no murmurs Assessment AND Plan Problems 1. Encounter for insertion of venous access port Z45.2 Plan 1. I described port placement to the patient in detail and showed her pictures of what a port would look like. I described the procedure in detail as well as the risks of the procedure. The risks include but not limited to bleeding, infection, DVT, pneumothorax. The patient would like to proceed with insertion of right chest port. 2. I will place the port this week as she is starting chemotherapy on Saturday. Narinder Vizcarra MD Pager: [facility] [address] [place] [address] Office: Coding Level of Care Code Off vis,new,level 3 Diagnoses Encounter for insertion of venous access port Z45.2 10/08/17 1535 <Electronically signed by Narinder Vizcarra MD> Date Narinder Vizcarra MD Cosign Signature: Date (if applicable) CC: Asmita Sommers; Andrés Helms MD BONE SCAN WHOLE Observed: 10/07/2017 Status: F Source: [place] BODY 9:13 AM [facility] REPOSITORY [facility] Imaging Services [address] [place] [address] Bone Scan Whole Body MR#: [id number] Acct: [id number] Name: WALI HALL Rep #: [id number] : 1960 F 57 From: Nate Evans DO PCP: Andrés Helms MD Status: REG CLI Study: Bone Scan Whole Body Date of Exam: 10/07/17 Exam# [id number] Ordering Dr: Denny Moses MD CLINICAL: 57-year-old female with reported history of bilateral upper extremity pain. WHOLE BODY 99m Tc MDP RADIONUCLIDE BONE SCINTIGRAPHY COMPARISON: None available FINDINGS: Following the intravenous administration of 26.0 mCi of 99m Tc MDP, whole body bone images reveal: 1. Increased radiopharmaceutical concentration is identified in the patellofemoral compartment of the left knee, ninth thoracic vertebra posteriorly on the left and in the midline, the acromioclavicular compartments of both shoulders, lower cervical spine posteriorly on the left, fifth lumbar vertebra posteriorly on the right, posterior midline sacrum, the first metatarsal-phalangeal articulation of the right forefoot. 2. The remaining skeletal structures are scintigraphically unremarkable with normal-appearing renal images and urinary bladder activity identified. NM/Bone Scan Whole Body IMPRESSION: 1. The increased radiopharmaceutical concentration identified in the cervical, thoracic and lumbar spine, sacrum, left knee, the right forefoot, shoulders bilaterally is most consistent with degenerative arthritis. 2. There is no definitive scintigraphic evidence of trauma- fracture, large articulation synovial inflammation on the current examination. Electronically Signed: Nate Evans DO at 10:11 EST Tel , Service support , CC: Andrés Helms MD; Denny Moses MD Coal Gasification Technician: Signed CONSULTATION Observed: 10/02/2017 Status: F Source: [place] 7:38 PM [facility] REPOSITORY [facility] Medical Records Department [address] [place] [address] Consultation 10/02/17 1715 MR#: [id number] Acct: [id number] Name: WALI HALL Rep #: [id number] : 1960 57 From: Denny Moses MD PCP: Andrés Helms MD Status: REG RCR Y Location: OMD Consult Referring Physician: Dr. Neal Helms Consult Results: Small Cell Lung Cancer. Subjective Date of Service:: 10/02/17 Chief Complaint: Referred for management of Small Cell Lung Cancer. History of Present Illness: 57-year-old woman presented with hyponatremia and change in mental status, she was started on seizure medication. On August 29, 2017 she was found unconscious, presented to the ER, CTA showed mediastinal and right hilar adenopathy with 4 mm right lower lobe nodule in addition to a lytic lesion in the T8 vertebral body. She had a PET CT scan on September 06, 2017 [facility] which showed several lymph nodes within the mediastinum with increased metabolic activity, right preaortic lymph node measuring 9 mm with SUV of 6.4, right hilar adenopathy with SUV of 12, subcarinal node with SUV of 7.3 and another subcarinal node with SUV of 7.3, multiple subcentimeter lung nodules noted bilaterally. She had EBUS on 09/27/2017, biopsy showed Small cell lung cancer so she was referred for further management. She is very upset about the diagnosis. Power of Under Presser: Yes Living Will: Yes Health History: Past Medical History (Last Reviewed 10/02/17 @ 14:17 by Yolanda Sanchez) Abnormal CAT scan (Acute) TGA (transient global amnesia) (Acute) Hyponatremia (Acute) Past Surgical History (Last Reviewed 10/02/17 @ 14:17 by Yolanda Sanchez) H/O breast augmentation (Acute) History of carpal tunnel release (Acute) hammer toe repair (Acute) Family History (Last Updated 10/02/17 @ 14:20 by Yolanda Sanchez) Mother Breast cancer Father Cancer Sister Aneurysm Allergies/Adverse Reactions: Allergy/AdvReac Type Severity Reaction Status Date / Time No Known Allergies Allergy Verified 10/02/17 14:17 Home Medications Medication Instructions Recorded Donepezil HCl 10 mg PO QHS 09/12/17 Levetiracetam 750 mg PO Q12H 09/12/17 Sodium Chloride 1 gm PO TID #90 tab 09/13/17 Review of Systems Constitutional:: Denies: Fever, Sweats, Weight loss, Appetite change, Chills Cardiovascular:: Denies: Chest pain, Palpitations, Dyspnea on exertion, Orthopnea, PND, Shortness of breath Respiratory: Denies: Cough, Hemoptysis, Shortness of Breath, Wheezing Gastrointestinal:: Denies: Abdominal pain, Nausea, Vomiting, Diarrhea, Constipation, Hematochezia Genitourinary: Denies: Dysuria, Hematuria, 15, Flank pain Musculoskeletal:: Denies: Back pain, Myalgia, Arthralgia Skin: Denies: Rash, Skin Changes, Wounds Neurological:: Reports: Memory loss. Denies: Headache, Dizziness, Visual changes, Tinnitus, Hearing loss Psychiatric: Denies: Anxiety, Depression, Homicidal Ideations, Suicidal Ideations Vital Signs Height 5 ft 6.5 in Weight: 65.317 kg Weight in Pounds 144.0 lbs Pulse Ox 100 - Physical Exam General: Alert, Oriented x3, No apparent distress HEENT: Atraumatic, PERRLA, EOMI, Normocephalic Oropharynx:: Dry mucosa Neck:: Supple, Trachea midline. Negative for: JVD, bilateral Cardiac:: Regular rate, Regular rhythm, Normal S1, Normal S2. Negative for: Murmur Lungs: Clear to auscultation, Excusion symmetrical. Negative for: Rhonchi, Wheezes Abdomen:: Bowel sounds x 4, Soft, Non-tender, Non-distended. Negative for: Hepatosplenomegaly Extremities:: Negative for: Cyanosis, Edema Neurological: Neuro grossly intact Skin:: Negative for: Lesions, Rash, Petechiae, Ecchymosis Psychiatric:: Appropriate affect, Euthymic Lymphatics:: Negative for: Cervical lymphadenopathy, Supraclavicular lymphadenopathy, Axillary lymphadenopathy Pathology Data: 09/27/2017 Bronchoscopy with EBUS, mediastinal and hilar adenopathy biopsies done, site 7 subcarinal node and sites 10R positive for malignant cells consistent with small cell carcinoma. Immunohistochemistry CK 7 negative, CK 20 negative, synaptophysin positive, Neuron specific enolase positive, TTF-1 positive. Assessment and Plan Small cell lung cancer with multiple bilateral lung nodules less than 1 cm, right hilar adenopathy, subcarinal adenopathy and preaortic adenopathy. Also has T8 vertebral deformity not active on PET. Extensive disease/Stage IV(TX N2 M1). PS 1. Hyponatremia and mental status changes could be related to small cell lung cancer. Discuss disease status, prognosis which is poor but depends on response to treatment with chemotherapy. Also discussed treatment with cisplatin and irinotecan as first line therapy for extensive disease/Stage IV disease. Patient agrees to proceed. Plan is to obtain bone scan to evaluate the bone lesion in T8. To start chemotherapy with Cisplatin and Irinotecan every 28 days on 09/20/2010/09/2017. Will do 2 cycles and reassess with CT scan. RTC 1 week with CBC, CMP AND LDH. Primary Care Provider: Andrés Helms MD Referring Provider: Denny Moses MD Code Visit Office Visits / Consults: [id number] OP Consult L5 10/02/17 1938 <Electronically signed by Denny Moses MD> Date Denny Moses MD Cosigner Signature (if applicable): Date CC: Andrés Helms MD Signed OPERATIVE REPORT Observed: 09/27/2017 Status: F Source: [place] 1:59 PM [facility] REPOSITORY [facility] Medical Records Department [address] [place] [address] Operative Report 09/27/17 1352 MR#: [id number] Acct: [id number] Name: WALI HALL Rep #: [id number] : 1960 57 From: Ricky Vargas DO PCP: Andrés Helms MD Status: REG SDC Y Location: [place] [address] Operative Report Date of Procedure: 09/27/17 BRONCHOSCOPY (EBUS) PROCEDURE REPORT DATE OF SERVICE: September 27, 2017 BRIEF HISTORY: The patient is a 57-year-old female, with an extensive smoking history, who initially presented to my outpatient pulmonary medicine clinic for evaluation of abnormal chest imaging. The patient was noted to have bilateral pulmonary nodules, subcentimeter in size, with associated mediastinal and hilar lymphadenopathy. She subsequently underwent a PET scan which showed positivity in the right hilar and subcarinal lymph node stations. Following a discussion with the patient and her , she elected to undergo an EBUS to allow for mediastinal lymph node sampling. PROCEDURE: Bronchoscopy with endoscopic endobronchial ultrasound (EBUS), transbronchial needle aspiration INDICATION: Mediastinal and hilar lymphadenopathy PHYSICIAN: Ricky Vargas DO ANESTHETIC: This procedure was completed under the supervision of anesthesia. Please refer to their documentation accordingly. COMPLICATIONS: No immediate complications noted. DESCRIPTION OF PROCEDURE: A history and physical has been performed. Please see outpatient pulmonary clinic note. The patient's medications and allergies have been reviewed. The risks and benefits of the procedure and sedation options and risks were discussed with the patient at length. All questions were answered and informed consent was obtained. The patient's identification and proposed procedure were verified prior to the procedure by the physician. ASA GRADE ASSESSMENT: II After obtaining informed consent, the bronchoscope was introduced through the mouth, via laryngeal mask airway and advanced to the tracheal bronchial tree bilaterally. The procedure was accomplished without difficulty. The patient tolerated the procedure well. FINDINGS: The visualized oropharynx appears normal. The vocal cords appeared normal and moved normally with breathing. The subglottic space is normal. The trachea was of normal caliber. The joy is sharp. The tracheal bronchial trees of the left and right lungs were examined to at least the first subsegmental level. Bronchial mucosa and anatomy was noted to be normal. No endobronchial lesions were noted. Once the airway inspection was completed, the standard bronchoscope was withdrawn and a convex probe endobronchial ultrasound (EBUS) bronchoscope was inserted through the same route. The endobronchial ultrasound endoscope was then utilized to systematically examine the superior/inferior mediastinal and hilar lymph nodes to assist with fine-needle aspiration. In total, 9 transbronchial needle aspirations were completed at 2 different lymph node stations. Transbronchial needle aspiration was performed at lymph node station 7 using an Olympus EBUS-TBNA 21-gauge needle and sent for routine cytology. The procedure was guided by ultrasound. 5 samples were obtained. Transbronchial needle aspiration was then performed at lymph node station 10R using an Olympus EBUS-TBNA 21-gauge needle and sent for routine cytology. The procedure was guided by ultrasound. 4 samples were obtained. Rapid on-site evaluation (ADI): Preliminary cytology was suggestive of malignancy. Final pathology results are pending. Following this, the EBUS endoscope was subsequently withdrawn from the patient's airway through the LMA. A conventional bronchoscope was then reinserted into the patient's airway, at which time, any retained secretions and/or blood was cleared. The bronchoscope was then withdrawn without complication. The patient was then transferred to the PACU, where they recovered in the usual fashion. IMPRESSION: 1. Extensive subcarinal and right hilar lymphadenopathy. 2. Transbronchial needle aspiration was performed at lymph node stations 7(subcarina) and 10R(right hilar) and sent for cytology. 3. Preliminary pathology was suggestive of malignancy. RECOMMENDATIONS: 1. Await final pathology results. 2. The patient and her were advised of the preliminary findings. They will be contacted once pathology results have finalized for a follow- up office visit. Code Visit [id number]: Other Procedure See Report 09/27/17 1359 <Electronically signed by Ricky Vargas DO> Date Ricky Vargas DO CC: Ricky Vargas D.O.; Andrés Helms MD Signed IMMUNOHISTOCHEMISTRY Observed: 09/27/2017 Status: F Source: [place] 12:00 AM [facility] REPOSITORY Patient: WALI HALL : 1960 (57/F) Acct Num: [id number] Phys: Ricky Vargas D.O. Unit Num: [id number] Loc: [facility] Specimen: [id number] Received: 10/01/171030 Spec Type: IMMUNO TISSUES TISSUES: G. Lung, NOS - CB #2 SPECIMEN INFORMATION: Tissue Source: G 10R Clinical Info: Mediastinal and hilar adenopathy Specimen Number: [id number] CPT code: 93280, 16912 x14 METHODOLOGY: Deparaffinized sections of prefer/formalin-fixed tissue or PAP/DQ stained slides are incubated with monoclonal/polyclonal antibodies/oligonucleotide probes. Localization is made via biotin free immunoperoxidase method. Appropriate controls are performed and reacted as expected. Results on target cell population are indicated in the following table: RESULTS: ANTIBODY / CLONE RESULT Block G AE1-3 (AE1/AE3/PCK26) positive CK7 (OV-TL12/30) negative CK8 (06ofqpL42) positive, dim CK20 (KS20.8) negative CD45 (RP2/18) negative S-100 (4C4.9) negative CD56 (123C3.D5) positive Chromo (LK2H10) negative Synapto (polyclonal) positive NSE Neuron Specific Enolase positive TTF-1 (8G7G3/1) positive Napsin A (Rabbit Polyclonal) negative Ki-67 (30-9) positive, moderate CEA (11-7/TF-3HB-1) negative P53 (DO-7) positive, 12%, dim These tests were developed and their performance characteristics determined by [facility]. They may not have been cleared or approved by the U.S. Food and Drug Administration. The FDA has determined that such clearance or approval is not necessary. INTERPRETATION: Marcia. 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 AM:edward 10/01/17 PHYSICIAN AND INSTITUTION [address] [address] Signed Silas Carol 10/01/17 <signature on file> Performed By: #### PIMM #### [facility] [address] [place] [address], [id number] FLUID/WASHING Observed: 09/27/2017 Status: F Source: [place] 12:00 [facility] REPOSITORY Patient: WALI HALL : 1960 (57/F) Acct Num: [id number] Phys: Ricky Vargas D.O. Unit Num: [id number] Loc: [facility] Specimen: [id number] Received: 09/27/17 - 1300 Spec Type: Fluid TISSUES TISSUES: A. Lung, NOS B. Lung, NOS C. Lung, NOS D. Lung, NOS E. Lung, NOS F. Lung, NOS G. Lung, NOS ADDENDUM Addendum Number 1 (KEYTRUDA) PD-L1 IMMUNOHISTOCHEMICAL ANALYSIS FROM [employer] RESULTS: PD-L1 Immunohistochemical Analysis: Test cancelled due to <100 viable tumor cells. Please see complete report in e-chart or EMR for complete details Addendum Signed Silas [facility] 03/05/18 <signature on file> COMMENT The specimen is evaluated at the time of procedure by Dr. Gaming. Immediate Evaluation: A. EBUS aspiration #1, site 7 joy: Positive for malignant cells. B. EBUS aspiration #2, site 7 joy: Nondiagnostic, blood only. C. EBUS aspiration #3, site 7 subcarina: Suspicious for malignant cells. Lymphocytes present. D. EBUS aspiration #4, site 10R: Positive for malignant cells. E. EBUS aspiration #5, site 10R: Positive for malignant cells. B. The specimen primarily contains blood. Immunohistochemistry ([id number]) performed on cell block from 10R reveals a small cell carcinoma consistent with lung primary. Clinical correlation is suggested. CYTOLOGY GROSS A - Received labeled with the patient's name and designated EBUS FNA, aspiration #1, site 7 joy. The specimen consists of two smears. The smears are submitted for immediate cytologic evaluation (wet read). B - Received labeled with the patient's name and designated EBUS FNA, aspiration #2, site 7 joy. The specimen consists of two smears. The smears are submitted for immediate cytologic evaluation (wet read). C - Received labeled with the patient's name and designated EBUS FNA, aspiration #3, site 7 subcarina. The specimen consists of two smears. The smears are submitted for immediate cytologic evaluation (wet read). D - Received labeled with the patient's name and designated EBUS FNA, aspiration #4, site 10R. The specimen consists of two smears. The smears are submitted for immediate cytologic evaluation (wet read). E - Received labeled with the patient's name and designated EBUS FNA, aspiration #5, site 10R. The specimen consists of two smears. The smears are submitted for immediate cytologic evaluation (wet read). F Received in RPMI and labeled with the patient's name and designated site 7 and submitted for cytology preparation including cell block. G - Received in RPMI and labeled with the patient's name and designated site 10R and submitted for cytology preparation including cell block. / SJ:edward TC: 0 CPT: 47689 x2, 47580 x2, 70597 x2 CYTOLOGY STUDY Slides are reviewed. DIAGNOSIS CYTOLOGY A. EBUS aspiration #1, site 7, subcarina: Positive for malignant cells. B. EBUS aspiration #2, site 7, subcarina: Nondiagnostic. C. EBUS aspiration #3, site 7, subcarina: Positive for malignant cells. D. EBUS aspiration #4, site 10R: Positive for malignant cells. E. EBUS aspiration #5, site 10R: Positive for malignant cells. F. EBUS aspiration, site 7, subcarina (cell block): Positive for malignant cells consistent with small cell carcinoma. G. 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 AM:edward 10/01/17 HEADER OPERATION: Bronchoscopy with EBUS PRE-OP DIAGNOSIS: Mediastinal and hilar adenopathy TISSUE SUBMITTED: A 7 joy, B 7 joy, C 7 subcarina, D 10R, E 10 R, F 7, G 10R Signed Silas Medina 10/01/17 <signature on file> Performed By: #### PFLU #### [facility] [address] [place], [place], [address] INTERNAL MEDICINE Observed: 09/20/2017 Status: F Source: [place] OFFICE VISIT 12:50 PM [facility] Internal Medicine [address] [place] [address] OFFICE VISIT Date of Service: 09/20/17 MR#: [id number] Acct: [id number] Name: WALI HALL Rep #: [id number] : 1960 Provider: Andrés Helms MD Age/Sex: 57/F Location: [facility] [place] Status: Signed Intake Vital Signs09/20/17 Height 5 ft 6 in Intake Visit Reasons: FOLLOW UP PER DR. HELMS Chief Complaint: follow-up visit Is patient in pain?: No Allergies No Known Allergies Allergy (Verified 09/09/17 13:27) Medications Donepezil HCl 10 mg PO QHS 09/12/17 [History Confirmed 09/12/17] Levetiracetam 750 mg PO Q12H 09/12/17 [History Confirmed 09/12/17] Sodium Chloride 1 gm PO TID #90 tab 09/13/17 [Rx] PFSH Medical History Abnormal CAT scan (Acute) TGA (transient global amnesia) (Acute) Hyponatremia (Acute) Surgical History H/O breast augmentation (Acute) History of carpal tunnel release (Acute) hammer toe repair (Acute) Family History Mother Breast cancer Father Cancer brain and lung Social History Smoking Status: Former smoker quit date: 08/10/17 pack-years: 80 how long ago did patient quit smokin alcohol intake: current alcohol intake frequency: a few times a month what type of physical activity do you participate in: none Questionnaire PHQ-2/PHQ-9 PHQ-2 Over the last 2 weeks, how often have you been bothered by any of the following problems? 1. Little interest or pleasure in doing things: more than half the days 2. Feeling down, depressed, or hopeless: more than half the days Total score: 4 If score is 2 or greater, continue 3. Trouble falling or staying asleep, or sleeping too much: not at all 4. Feeling tired or having little energy: nearly every day 5. Poor appetite or overeating: not at all 6. Feeling bad about yourself - or that you are a failure or have let yourself and your family down: several days 7. Trouble concentrating on things, such as reading the newspaper or watching television: nearly every day 8. Moving or speaking so slowly that other people could have noticed? - Or the opposite - being so fidgety or restless that you have been moving around a lot more than usual: not at all 9. Thoughts that you would be better off or of hurting yourself in some way: not at all Total score: 11 If you checked off any problems, how difficult have these problems made it for you to do your work, take care of things at home, or get along with other people?: extremely difficult Source: Developed by Drs. Hunter Agosto, Ember Perez, Rafael Castanon and colleagues, with an educational tahir from [employer]. HPI FOLLOW UP PER DR. HELMS: Chief Complaint: follow-up visit Details: WALI HALL, is a 57yo F who presents to the office today for follow-up for recent hospital admission for hyponatremia. She was directly admitted after her repeat BMP showed a sodium level of 123. However on admission to the hospital her sodium level was 126. She was started on IV normal saline and also seen by the veneer drier tailer. She was placed on fluid restriction of about 1.2 L daily and started on salt tablets. Repeat sodium done yesterday was 133. She denies any acute complaints at this time. She has had no repeat seizure episodes in about 2 weeks. She is currently on Keppra. Plan is for an EBUS on the 27 of September. She however still reports difficulty concentrating and brain fog. She is scored 11 on the PHQ 9 assessment significant for moderate depression. ROS Const Constitutional: No weight change, body ache, chills, fatigue, sleep problems, fever(s), change in appetite, snoring, weakness, frequent falls, headache(s) or excessive sweating Eyes Eyes: No change in vision, eye pain, light sensitivity or blurry vision ENT ENT: No headache(s), abnormal hearing, ear pain, tinnitus, nasal congestion, sore throat or neck pain Resp Respiratory: No snoring, cough, shortness of breath or wheezing Cardio Cardiology: No excessive sweating, chest pain at rest, chest pain with exertion, shortness of breath, dyspnea on exertion, palpitations, orthopnea or lightheadedness Gastro GI: Positive for loose stools; no abdominal pain, change in bowel habits, constipation, diarrhea, vomiting, nausea/dyspepsia or cramping Musc Musculoskeletal: No neck pain, abnormal walking, joint pain, back pain, limited range of motion, numbness or tingling Skin Skin: No redness, dry skin, itching, lesions, wounds or rash Neuro Neurology: No weakness, frequent falls, headache(s), abnormal hearing, abnormal walking, numbness, tingling, abnormal speech, dizziness or memory loss Psych Psychiatric: No change in appetite, No memory loss, No anxiety, No depression, No Thoughts of harming yourself/Others Endo Endocrine: No fatigue, excessive sweating, cold intolerance, increased thirst/drinking, heat intolerance, flushing or increased hunger Aller/Imm Allergy/Immunologic: No wheezing, itchy eyes, hives or seasonal allergy symptoms Patrice/Lymp Hematologic/Lymphatic: No easy bleeding, easy bruising or enlarged lymph nodes Exam Const General: cooperative, no acute distress Orientation: alert, awake, oriented x3 [facility] Head: normal to inspection, normocephalic, atraumatic Ears: hearing grossly normal bilaterally Resp Effort AND Inspection: normal respiratory effort, able to speak in complete sentences Auscultation: Bilateral: Clear to Auscultation Cardio Rate: regular rate Rhythm: regular rhythm Heart Sounds: S1 normal, S2 normal GI Palpation: soft, no hepatosplenomegaly Neuro General: alert, awake, oriented x3, CN's II-XI intact bilaterally, moves all extremities Extrem General: no pedal edema Psych Appearance: grossly normal Affect: normal affect Assessment AND Plan 1. 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 Patient is stable. Most recent BMP with a sodium of 133. Currently on salt tablets 1 g 3 times daily. Also on fluid restrictions to 1.2 L daily. Continue current medication. Follow-up in 1 month. Orders Orders: 2. Depression F32.9 Plan She scored 11 on the PHQ 9 significant for moderate depression. Recommended therapy however, patient states that she would like to try dealing with it on her own first. Will stay off medications until absolutely necessary due to her history of SIADH. 3. Seizure disorder G40.909 Plan No seizure episodes in over 2 weeks. Currently on Keppra 750 mg twice daily. Continue current medication. No driving. 4. Abnormal CAT scan R93.8 Plan Following up with pulmonary. Scheduled for an EBUS on 27 of September. Will follow. This note was generated with [employer] dictation software. It may contain incorrect words, spelling, and punctuation that were not noted in checking the note before signing. Plan Detail Follow Up 1 Month Coding Level of Care Code Off vis,est,level 3 Diagnoses Hyponatremia E87.1 Depression F32.9 Seizure disorder G40.909 Abnormal CAT scan R93.8 09/20/17 1250 <Electronically signed by Andrés Helms MD> Date Andrés Helms MD Cosigner Signature: Date (if applicable) CC: 12 LEAD ELECTROCARDIOGRAM Observed: 09/19/2017 Status: F Source: [place] 11:48 AM [facility] REPOSITORY [facility] Cardiovascular Services [address] [place] [address] 12 Lead EKG 09/12/17 1712 MR#: [id number] Acct: [id number] Name: WALI HALL Rep #: [id number] : 1960 57 From: Luis M Martines MD Attending Dr: Justina Sanz MD Status: DIS IN Ordering Dr: Justina Sanz MD Date: 09/12/17 Location: [facility] Sex: F C Admitted: 09/12/17 Test Reason : Blood Pressure : / mmHG Vent. Rate : 069 BPM Atrial Rate : 069 BPM P-R Int : 176 ms QRS Dur : 084 ms QT Int : 408 ms P-R-T Axes : 082 068 063 degrees QTc Int : 437 ms Normal sinus rhythm Normal ECG When compared with ECG of 12-SEP-2017 15:38, MANUAL COMPARISON REQUIRED, DATA IS UNCONFIRMED Confirmed by LUIS M MARTINES ([id number]), video news editor MARSHA CARROLL ([id number]) on 09/19/2017 11:47:44 AM Referred By: Andrés Helms Confirmed By:LUIS M MARTINES 09/19/17 1147 Date Luis M Martines MD CC: Andrés Helms MD Signed 12 LEAD ELECTROCARDIOGRAM Observed: 09/19/2017 Status: F Source: [place] 11:40 AM [facility] REPOSITORY [facility] Cardiovascular Services [address] [place] [address] 12 Lead EKG 09/12/17 1538 MR#: [id number] Acct: [id number] Name: WALI HALL Rep #: [id number] : 1960 57 From: Luis M Martines MD Attending Dr: Justina Sanz MD Status: DIS IN Ordering Dr: Alfredo Galdamez MD Date: 09/12/17 Location: [facility] Sex: F C Admitted: 09/12/17 Test Reason : Blood Pressure : / mmHG Vent. Rate : 070 BPM Atrial Rate : 070 BPM P-R Int : 172 ms QRS Dur : 078 ms QT Int : 406 ms P-R-T Axes : 083 072 066 degrees QTc Int : 438 ms Normal sinus rhythm Normal ECG When compared with ECG of 16-AUG-2017 13:31, No significant change was found Confirmed by LUIS M MARTINES ([id number]), video news editor MARSHA CARROLL ([id number]) on 09/19/2017 11:40:39 AM Referred By: Andrés Helms Confirmed By:LUIS M MARTINES 09/19/17 1140 Date Luis M Martines MD CC: Andrés Helms MD Signed RENAL PROFILE Collected: 09/19/2017 Status: F Source: [place] 8:35 AM [facility] REPOSITORY Order Comment: Send Results To: Dr. Chance and Dr. Helms Reason for Laboratory Test Follow-up on hyponatremia DR CHANCE ORDERED RENAL DR SANZ ORDERED BMP TYPE CODE TESTS RESULT OUT OF RANGE REFERENCE UNITS LAB L501.0100 70-110 mg/dL Normal GLU 79 LAB L501.1000 7-18 mg/dL Normal BUN 10 LAB L501.1100 0.55-1.02 mg/dL Normal 0.62 CREAT,SERUM Result Comment: The validity of the calculated GFR AND GFRAA in patients over 70 years has not been determined. Clinical correlation is essential. LAB L501.1110 >60 mL/min Normal EST GFR 104 Result Comment: Non- GFR Calc LAB L501.1115 >60 mL/min Normal EST GFR - AA 126 Result Comment: GFR Calc LAB L501.1300 10-20 RATIO Normal BUN/CRE 16.1 LAB L501.1800 3.2-5.0 g/dL Normal ALB 3.7 LAB L501.2200 8.5-10.1 mg/dL CA Normal 8.7 LAB L501.2300 2.5-4.9 mg/dL Normal PHOS 3.8 LAB L501.5300 136-145 mmol/L Low NA 133 LAB L501.5600 3.5-5.1 mmol/L K Normal 4.4 LAB L501.5900 98-107 mmol/L Low CL 97 LAB L501.6100 21.0-32.0 mmol/L Normal CO2 28.0 Performed By: #### L500.3600 #### [facility] [place], [address] CBC-COMPLETE BLOOD CNT Collected: 09/19/2017 Status: F Source: [place] NO DIFF 8:32 AM [facility] REPOSITORY TYPE CODE TESTS RESULT OUT OF RANGE REFERENCE UNITS LAB L100.1000 4.4-11.0 K/mm3 Normal WBC 4.7 LAB L100.1200 4.2-5.4 M/mm3 Low RBC 3.75 LAB L100.1300 12.0-15.0 g/dl Normal HGB 12.3 LAB L100.1400 37-47 % Low HCT 36.5 LAB L100.1500 81-99 fL Normal MCV 97.3 LAB L100.1600 27.0-32.0 pg High MCH 32.8 LAB L100.1700 32-36 g/gl Normal MCHC 33.7 LAB L100.1810 11.6-14.6 % Normal RDW CV 12.7 LAB L100.1820 35.1-43.9 fl High RDW SD 44.5 LAB L100.1900 150-450 K/mm3 Normal PLT 300 LAB L100.2000 6.2-12.0 fl Normal MPV 8.8 Performed By: #### L100.0500 #### [facility] [address] [place], [address] PROTHROMBIN TIME W/INR Collected: 09/19/2017 Status: F Source: [place] 8:32 AM [facility] REPOSITORY TYPE CODE TESTS RESULT OUT OF RANGE REFERENCE UNITS LAB L300.4150 11.7-14.9 SECONDS Normal PROTIME 13.2 LAB L300.4200 Normal INR 1.0 Performed By: #### L300.3900 #### [facility] [address] [place], [address] DISCHARGE SUMMARY Observed: 09/15/2017 Status: F Source: [place] 11:54 AM [facility] REPOSITORY [facility] Medical Records Department [address] [place] [address] Discharge Summary 09/13/17 1456 MR#: [id number] Acct: [id number] Name: WALI HALL Rep #: [id number] : 1960 57 From: Justina Sanz MD PCP: Andrés Helms MD Status: DIS IN Y Location: [place] [address] Discharge Date and Diagnosis Date of Admission: 09/12/17 Date of Discharge: 09/13/17 - Primary Discharge Diagnosis Active and Suspected Problems (Last Reviewed 09/09/17 @ 13:38 by Denisse Chan) Lung nodule (Acute) - Secondary Discharge Diagnosis Chronic Problems (Last Reviewed 09/09/17 @ 13:38 by Denisse Chan) Seizure disorder (Chronic) Tobacco dependence in remission (Chronic) Hospital Course and Treatment Nephrology Operations: None Procedures: None Summary of Care Provided: 57-year-old female with recent history of seizure disorder, global transient amnesia/cognitive impairment, chronic hyponatremia, ongoing since the last 2 months, former smoker, history of lung nodule status post biopsy( PER PATIENT, DO NOT SEE IT IN THE SYSTEM) in as a direct admit with abnormal blood work. Active management as follows: 1. Hyponatremia, chronic, secondary to SIADH, goes all the way back to July 2017, no acute change from baseline of around 126, repeat sodium in the hospital is 126 from 123, discharge sodium was 130, nephrology consulted, discharged on salt tablets and fluid restriction less than 1.5L 2. Seizure disorder, on Keppra 3. History of lung nodule, status post recent lung biopsy, will follow in the outpatient pulmonology. 4. Cognitive impairment, following with neurology, started on Aricept. Discharge Diet: No Restrictions, 6 Cup Fluid Restriction Discharge Activity: Return to Normal Activity Home Medications: Medications to take at Discharge Donepezil HCl 10 mg PO QHS 09/12/17 Levetiracetam 750 mg PO Q12H 09/12/17 Sodium Chloride 1 gm PO TID #90 tab 09/13/17 Following Prescrptions Were Given to Patient: Sodium Chloride 1 gm PO TID #90 tab Primary Care Physician: Andrés Helms MD [Primary Care Provider] - Please follow up with your Primary Care Physician in: within 2 weeks Please Follow Up With: Morgan Chance MD When: within 2 weeks Disposition: Home Minutes spent on discharge:: 25 Patient Condition:: Stable Meaningful Use Info Meaningful Use Diagnoses (Choose all that apply): None applicable Code Visit Inpatient E AND M: 23937 Disch Hosp 09/15/17 1154 <Electronically signed by Justina Sanz MD> Date Justina Sanz MD Cosigner Signature (if applicable): Date CC: Justina Sanz MD; Andrés Helms MD Signed CONSULTATION Observed: 09/13/2017 Status: F Source: [place] 3:[facility] Medical Records Department [address] [place] [address] Consultation 09/13/17822 MR#: [id number] Acct: [id number] Name: WALI HALL Rep #: [id number] : 1960 57 From: Moraima Cross DIETITIAN TEACHING-C PCP: Andrés Helms MD Status: DIS IN Y Location: [place] [address] ADDENDUM by Marco Antonio Zamudio MD on 09/13/17 at 1559 Code Visit Patient seen and examined independently in conjunction with nurse practitioner. All data, including note below, was personally reviewed and I agree with the added comments. Patient is known to our practice and has been seen by Dr. Vargas as an outpatient recently. Patient presents with hyponatremia secondary to SIADH laboratory workup. Patient is to have an EBUS early next month. Patient does have an extensive smoking history with mediastinal lymphadenopathy and also has a history of seizures in the past. Physical exam was independently performed and I agree as listed below. Lung sounds are diminished, but no adventitial sounds are appreciated. Patient does have slow mental recall, but otherwise a nonfocal neurologic exam. Patient is saturating well on room air. Assessment and plan Stress to the patient the importance of compliance with salt tablets and water restriction. Patient understands that this may represent a paraneoplastic syndrome and progression with bronchoscopy is appropriate. Patient takes few home medications and none of them have been associated with SIADH. Patient should have a repeat sodium level next week. This can be arranged by her primary care physician or our office. Patient can follow-up in our office per pre-admission plan. Inpatient E AND M: 12760 Init Hosp L2 09/13/17 1559 <Electronically signed by Marco Antonio Zamudio MD> Date Marco Antonio Zamudio MD cc: Marco Antonio Zamudio MD; Andrés Helms MD; Sandy Chance M.D. * Signed Problem List (1) Lung nodule Status: Acute (2) Hyponatremia Status: Acute (3) Seizure disorder Status: Chronic (4) Tobacco dependence in remission Status: Chronic (5) Abnormal CAT scan Status: Acute (6) TGA (transient global amnesia) Status: Acute Reason for Consult Date of Consultation: 09/13/17 Reason for Consultation: lung nodule, ?SIADH History of Present Illness: The patient is a 57 year old F with a past medical history as below, multiple presentations to the emergency room for altered mental status/seizures, recently seen in the pulmonary clinic on 09/[address] Vargas, presents to [facility] as a direct admit from her PCPs office for abnormal blood work, hyponatremia. 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 She reports she started having seizures and memory problems a couple of months ago and is following with neurology. Her medications have been adjusted for persistent seizures. CTA chest was obtained on 08/29/17 and showed evidence of subcarinal and bilateral hilar adenopathy, along with a 4 mm noncalcified lung nodule in the right lower lobe. There was additional note of a potential lytic lesion in the patient's spine. The patient had a PET scan on 09/06/17 at [facility] in [place] which revealed hypermetabolic mediastinal lymphadenopathy, concerning for malignant process. There is also asymmetric increased activity within the right subscapularis muscle without underlying mass or abnormality, possibly related to trauma. There were multiple subcentimeter lung nodules, which findings were too small to be accurately characterized by PET. There are also findings concerning for right breast implant rupture. At her pulmonary visit 09/09/17, the abnormal CTA of the chest findings were reviewed with patient and she decided to proceed with a mediastinal lymph node evaluation via EBUS. According to the medical record, the patient is scheduled for biopsy on 09/27/17. She has quit smoking. She does have an extensive smoking history of 2 packs a day for 40 years (80 pack years). Patient reports her last seizure was on Saturday. She denies any need for oxygen supplementation at home. Patient denies any shortness of breath, chest pain or tightness, cough, sputum production, hemoptysis, weakness, palpitations, or orthopnea. She denies any headaches or dizziness. She denies any muscle cramping. She reports she typically drinks beer on the weekends, on average she will have 2 beers on Saturday and 2 beers on Saturday. Otherwise, her states he does not allow her to drink anymore than that. Blood work on arrival revealed WBC of 4.1, hemoglobin 11.6 and hematocrit 33. Sodium was low at 126 and chloride 92. When 6 and creatinine of 0.62. Osmolality was low at 258. Calcium 8.3. TSH on the low side of normal at 0.58 and liver function tests were normal. Urinalysis was negative for infection, urine osmolality 279. Urine sodium 87. There was blood in her urine. Past Medical History Past Medical History (Chronic Problems): Chronic Problems (Last Reviewed 09/09/17 @ 13:38 by Denisse Chan) Seizure disorder (Chronic) Tobacco dependence in remission (Chronic) Allergies No Known Allergies Allergy (Verified 09/09/17 13:27) Home Medications: Ambulatory Orders Medication Instructions Recorded Donepezil HCl 10 mg PO QHS 09/12/17 Levetiracetam 750 mg PO Q12H 09/12/17 Surgical History: - - Bilateral carpal tunnel surgery, bilateral hammertoe surgery, lung biopsy Psychiatric History: No pertinent psych hx Lives: Spouse/ Significant Other Smoking Status: Former smoker Tobacco Use: Cigarettes Alcohol: Occasional - total 4 beers/weekend, none thru the week Drugs: None - *Family History Maternal Family History: Family History (Last Reviewed 09/09/17 @ 13:27 by Denisse Chan) Mother Breast cancer Father Cancer History Items: - - no CVA Review of Systems Constitutional: Reports: Anorexia. Denies: Chills, Fever, Night Sweats, Malaise, Weakness, Weight Change, Fatigue Eyes: Denies: Blurred vision, Double vision, Vision Change HEENT: Reports: Sinus Congestion. Denies: Difficulty Swallowing, Head Aches, Nasal bleeding, Nasal Congestion, Post Nasal Drip, Sinus Drainage, Sore Throat, Visual Changes Cardiovascular: Denies: Chest Pain, Chest Tightness, Edema, Light Headedness, Orthopnea, Palpitations, Paroxysmal Noc. Dyspnea, Syncope Respiratory: Denies: Cough, Hemoptysis, Shortness of Breath, Sputum production, Wheezing Gastrointestinal: Denies: Abdominal Pain, Constipation, Diarrhea, Dyspepsia, Hematemesis, Hematochezia, Nausea, Melena, Vomiting Genitourinary: Denies: Dysuria, Hematuria Musculoskeletal: Denies: Muscle pain, Neck Pain Skin: Denies: Dryness, Pruritis, Rash Neurological: Reports: Seizures. Denies: Change in Speech, Confusion, Difficulty swallowing, Focal weakness, Headaches, Numbness, Tingling, Tremor Psychiatric: Reports: Anxiety, Depression. Denies: Suicidal Ideations Endocrine: Reports: Polydipsia. Denies: Change in Body Habitus, Polyuria, Hx of Thyroiditis Hematologic/ Lymphatic: Denies: Adenopathy, Anemia, Easy Bruising, Easy Bleeding, Hx of blood clot Patient Problems: Active and Suspected Problems (Last Reviewed 09/09/17 @ 13:38 by Denisse Chan) Lung nodule (Acute) Subjective: Patient was seen and examined. She is sitting up in the chair with her present. She is quite tearful. States she just wants to go home. Denies any respiratory issues, no shortness of breath, chest pain, palpitations, cough, sputum production. No nausea or vomiting. Reports she has been trying to control her hyponatremia at home by eating a lot of salt every chance she gets. Patient reports less confusion this morning, confirms. Objective: No acute events overnight. Patient remains afebrile and hemodynamically stable. She is saturating in the upper 90s on room air. - Physical Exam General: Alert, Oriented x3, Cooperative, No apparent distress, - - tearful HEENT: Atraumatic, Normocephalic Oral: Moist Mucosa, No Gingival or Mucosal Lesions/ Ulcerations Neck: Supple, No Nodes, Trachea Midline Lungs: Clear to auscultation, No rhonchi, No wheeze, No rales, Diminished Cardiovascular: Regular rate, Regular Rhythm, Normal S1, Normal S2, No murmurs, No rub noted, No Gallop Abdomen: Bowel Sounds Present, Soft, Non Tender, Non-Distended Extremities: No clubbing, No cyanosis, No edema, Capillary Refill Less than 3 Seconds, No Calf Tenderness, Peripheral Pulses Normal Skin: No rashes, No breakdown Musculoskeletal: No Tenderness to Palpation of Joints or Extremities Lymphatic: - - no lymphadenopathy noted Neurological: Cranial nerves II-XII grossly intact, Neuro grossly intact, Motor Exam 5/5 strength throughout Psych/Mental Status: Appropriate, Depressed, - - tearful. cooperative and conversive. Vital Signs Temp Pulse Resp BP Pulse Ox 98.3 F 80 18 130/65 H 97 09/13/17 03:00 09/13/17 03:02 09/13/17 03:00 09/13/17 03:00 09/13/17 03:00 Oxygen Delivery Method Room Air Weight: 136 lb 10.986 oz Body Mass Index (BMI) 22.0 Finger Stick Blood Glucose 97 Intake and Output for Last 24 Hours Intake Total 1274 / 1274 412 / 412 Balance 1274 / 1274 412 / 412 Laboratory Tests Past 24 Hrs WBC RBC Hgb Hct MCV MCH WBC 4.4 RBC 3.46 L Assessment/Plan Active and Suspected Problems (Last Reviewed 09/09/17 @ 13:38 by Denisse Chan) Lung nodule (Acute) RECOMMENDATIONS 1. Daily BMP 2. Increase activity as tolerated, with assist secondary to fall risk 3. Restrict water intake 4. Await nephrology consultation 5. Continue Aricept and Keppra 6. Plan to proceed with lung biopsy on 09/27. 7. Patient would benefit from baseline pulmonary function tests in the future IMPRESSIONS 1. Lung nodule CT of the chest 08/29 was negative for PE and showed mediastinal and right hilar adenopathy. There was a 4 mm noncalcified nodule in the right lower lobe and portable lytic lesion in vertebral body of T7-T8. PET scan revealed hypermetabolic mediastinal lymphadenopathy, concerning for malignant process. There is also asymmetric increased activity within the right subscapularis muscle without underlying mass or abnormality, possibly related to trauma. There were multiple subcentimeter lung nodules, which findings were too small to be accurately characterized by PET. There are also findings concerning for right breast implant rupture. Patient is currently not having any chest pain, shortness of breath, cough or sputum production, hemoptysis. She is anxious to have biopsy and have a diagnosis. Patient not requiring any oxygen supplementation at this time. Her lung nodules are possible etiology of her hyponatremia, workup is currently underway. 2. Hyponatremia See #1. Serum osmolality low at 258, urine osmolality 279. Urine random sodium 87. Nephrology has been consulted. Patient does drink beer, on average 4 beers per weekend but none through the week. Unlikely hyponatremia related to alcohol intake. Having symptoms of seizures and confusion. She is not on any diuretics her GFR is 103. May have some adrenal insufficiency, workup underway. 3. Seizure disorder/cognitive disorder/Tobacco abuse, in remission Complicates care, management, recovery, and prognosis. Ongoing smoking cessation was encouraged. Patient quit smoking on August 16, 2017. Patient should continue to be monitored for seizures. She is following with neurology. Patient recently had a mammogram which did not detect any masses. This note was generated with [employer] dictation software. It may contain incorrect words, spelling, and punctuation that were not noted in checking the note before signing. 09/13/17 0942 <Electronically signed by Moraima GUILLEN> Date Moraima GALLAGHERC Cosigner Signature (if applicable): Date CC: Marco Antonio Zamudio MD; Andrés Helms MD; Sandy Chance M.D. Signed DISCHARGE INSTRUCTION Observed: 09/13/2017 Status: F Source: [place] 2:55 PM [facility] REPOSITORY [facility] Medical Records Department [address] [place] [address] Instructions for Home/Discharge Instructions 09/13/17 1448 MR#: [id number] Acct: [id number] Name: WALI HALL Rep #: [id number] : 1960 57 From: Justina Sanz MD PCP: Andrés Helms MD Status: ADM IN - Discharge Diagnoses Current Active Problems: Current Active and Chronic Problems (Last Reviewed 09/09/17 @ 13:38 by Denisse Chan) Lung nodule (Acute) Reason(s) for Visit for Discharge Instructions: Abnormal blood work You will use the following diet at home:: Regular Your food should be the consistency of: Regular Your liquids should be the consistency of: Regular/Thin Discharge Activity: Return to Normal Activity Additional Instructions: Note changes to your medications. Restrict your total fluid intake to less than 1.5 L a day. Follow-up with the kidney doctor, neurologist and your primary care doctor Allergies/Adverse Reactions: Allergies No Known Allergies Allergy (Verified 09/09/17 13:27) Medications to take at Discharge Donepezil HCl 10 mg PO QHS 09/12/17 Levetiracetam 750 mg PO Q12H 09/12/17 Sodium Chloride 1 gm PO TID #90 tab 09/13/17 The following prescriptions were given: Sodium Chloride 1 gm PO TID #90 tab Orders to be completed after discharge: Basic Metabolic Profile (BMP) Time Frame: 1 Week, Location: Laboratory Basic Metabolic Profile (BMP) Time Frame: 1 Week, Location: Laboratory Primary Care Physician: Andrés Helms MD [Primary Care Provider] - Please follow up with your Primary Care Physician in: within 2 weeks Please Follow Up With: Morgan Chance MD When: within 2 weeks Proposed Discharge Date: 09/13/17 09/13/17 1455 <Electronically signed by Justina Sanz MD> Date Justina Sanz MD CC: Marco Antonio Zamudio MD; Andrés Helms MD; Sandy Chance M.D. CONSULTATION Observed: 09/13/2017 Status: F Source: [place] 2:40 PM [facility] REPOSITORY [facility] Medical Records Department [address] [place] [id number] Consultation 09/13/17 1434 MR#: [id number] Acct: [id number] Name: WALI HALL Rep #: [id number] : 1960 57 From: Morgan Chance MD PCP: Andrés Helms MD Status: ADM IN Y Location: [place] [id number] Problem List (1) Hyponatremia Status: Acute Consultation - Renal 09/13/17 PCP/ Referring MD: Requesting physician: Dr Sanz Primary care physician: Andrés Helms MD Reason for Consultation:: hyponatremia - History of Present Illness History of Present Illness: The patient is a 57 year old F admitted to the hospital after she was asked to comment due to low sodium values. Apparently she has never had any medical issues since July. Since then he has had several hospitalizations related to altered mental status, seizures. Recently diagnosed with possible malignancy Had a biopsy. She was told that results show malignancy. I do not see that pathology report Sodium values were 123 as outpatient. 126 yesterday and up to 130 today. denies any new complaints - Allergies Allergies: Allergies No Known Allergies Allergy (Verified 09/09/17 13:27) - Current Medications Current Medications: Current Medications Al Hydroxide/Mg Hydroxide (Mylanta Ii) 30 ml PO Q6H PRN PRN PRN Reason: Gastric burning Donepezil HCl (Aricept) 10 mg PO QHS [facility] Last Admin: 09/12/17 19:40 Dose: Not Given Enoxaparin Sodium (Lovenox) 40 mg SC DAILY@1000 [facility] Last Admin: 09/13/17 09:28 Dose: 40 mg Levetiracetam (Keppra) 750 mg PO Q12H [facility] Last Admin: 09/13/17 09:27 Dose: 750 mg Ondansetron HCl (Zofran) 4 mg IV Q8H PRN PRN PRN Reason: NAUSEA Promethazine HCl (Phenergan (Ll)) 12.5 mg IV Q6H PRN PRN PRN Reason: NAUSEA/VOMITING Psyllium Hydrophilic Mucilloid (Metamucil) 1 packet PO DAILY PRN PRN PRN Reason: CONSTIPATION Senna/Docusate Sodium (Senokot-S, Belkys-Colace) 2 tablet PO BID PRN PRN Reason: Constipation Sodium Chloride () 5 - 30 ml IV UD PRN PRN Reason: SALINE FLUSH Zolpidem Tartrate (Ambien (Generic)) 5 mg PO QHS PRN PRN PRN Reason: INSOMNIA - Past Medical History Past Medical History (Chronic Problems): Chronic Problems (Last Reviewed 09/09/17 @ 13:38 by Denisse Chan) Seizure disorder (Chronic) Tobacco dependence in remission (Chronic) - Past Surgical History Surgical History: - - Bilateral carpal tunnel surgery, bilateral hammertoe surgery, lung biopsy - Social History Smoking Status: Former smoker Alcohol: Occasional - total 4 beers/weekend, none thru the week Drugs: None - Family History Maternal Family History: Family History (Last Reviewed 09/09/17 @ 13:27 by Denisse Chan) Mother Breast cancer Father Cancer History Items: - - no CVA Review of Systems Constitutional: Denies: Chills, Fever, Weight Change HEENT: Denies: Head Aches, Sinus Congestion, Sinus Drainage Cardiovascular: Denies: Chest Pain, Palpitations Respiratory: Denies: Cough, Shortness of breath at rest, Sputum production Gastrointestinal: Denies: Abdominal Pain, Nausea, Vomiting Genitourinary: Denies: Dysuria Musculoskeletal: Denies: Joint Pain, Joint Tenderness Skin: Denies: Rash, Wounds Neurological: Denies: Numbness, Tingling, Focal weakness Psychiatric: Denies: Anxiety, Depression, Homicidal Ideations, Suicidal Ideations Hematologic/ Lymphatic: Denies: Easy Bruising, Easy Bleeding Patient Problems: Active and Suspected Problems (Last Reviewed 09/09/17 @ 13:38 by Denisse Chan) Lung nodule (Acute) - Physical Exam General: Alert, Oriented x3, Cooperative HEENT: Atraumatic, PERRLA, EOMI, Normocephalic Neck: Supple, No JVD, Negative Carotid Bruits Lungs: Clear to auscultation, Normal air movement Cardiovascular: Regular rate, No murmurs Abdomen: Bowel Sounds Present, Soft, Non Tender Extremities: No edema, Capillary Refill Less than 3 Seconds Skin: No rashes, No breakdown Musculoskeletal: No Tenderness to Palpation of Joints or Extremities Neurological: Cranial nerves II-XII grossly intact Psych/Mental Status: Normal Affect, Appropriate Vital Signs Temp Pulse Resp BP Pulse Ox 98.3 F 82 16 135/66 H 99 09/13/17 09:25 09/13/17 11:00 09/13/17 09:25 09/13/17 09:25 09/13/17 10:33 Oxygen Delivery Method Room Air Weight: 62 kg Body Mass Index (BMI) 22.0 Finger Stick Blood Glucose 97 Intake and Output for Last 24 Hours Intake Total 1274 / 1274 592 / 592 Balance 1274 / 1274 592 / 592 Laboratory Tests Past 24 Hrs WBC RBC Hgb Hct MCV MCH WBC 4.4 RBC 3.46 L Assessment/Plan Active and Suspected Problems (Last Reviewed 09/09/17 @ 13:38 by Denisse Chan) Lung nodule (Acute) hyponatremia. Clinically euvolemic. No signs of volume overload. TSH is normal. I do not have a cortisol level. Urine osmolality is around 270 and urine sodium 87. 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 Sodium values are better at 130 today on further questioning, she tells me that she drinks significant amount of liquids up to 3 L per day For now Fluid restriction to 1.2 L per day Add salt tablets 1 g 3 times a day Since sodium values are up to 130, she can be discharged from renal standpoint We'll check a BMP next week We will arrange for follow-up in about 2-3 weeks 09/13/17 1440 <Electronically signed by Morgan Chance MD> Date Morgan Chance MD Cosigner Signature (if applicable): Date CC: Marco Antonio Zamudio MD; Andrés Helms MD; Sandy Chance M.D. Signed CBC W/DIFF, AUTOMATED Collected: 09/13/2017 Status: F Source: [place] 5:36 AM [facility] REPOSITORY TYPE CODE TESTS RESULT OUT OF RANGE REFERENCE UNITS LAB L100.1000 4.4-11.0 K/mm3 Normal WBC 4.4 LAB L100.1200 4.2-5.4 M/mm3 Low RBC 3.46 LAB L100.1300 12.0-15.0 g/dl Low HGB 11.2 LAB L100.1400 37-47 % Low HCT 32.5 LAB L100.1500 81-99 fL Normal MCV 93.9 LAB L100.1600 27.0-32.0 pg High MCH 32.4 LAB L100.1700 32-36 g/gl Normal MCHC 34.5 LAB L100.1810 11.6-14.6 % Normal RDW CV 12.5 LAB L100.1820 35.1-43.9 fl Normal RDW SD 42.2 LAB L100.1900 150-450 K/mm3 Normal PLT 284 LAB L100.2000 6.2-12.0 fl Normal MPV 8.6 LAB L100.2100 47-70 % Normal NEUT% 47.8 LAB L100.2200 19-41 % Normal LY% 30.0 LAB L100.2300 0-10 % High MONO% 16.7 LAB L100.2400 0-5 % Normal EO% 4.4 LAB L100.2500 0-1 % Normal BASO% 0.9 LAB L100.2550 0.0-0.9 % Normal IM GRAN % 0.200 Result Comment: IG% - Immature Granulocytes (promyelocytes, myelocytes and metamyelocytes) > 1% indicates that a LEFT SHIFT is Present. LAB L100.2620 2.0-7.7 X10 3/uL Normal Absolute Neut 2.1 LAB L100.2720 0.83-4.51 X10 3/ul Normal Absolute Lymph 1.31 Performed By: #### L100.0100 #### [facility] [address] [place], [address] PROTHROMBIN TIME W/INR Collected: 09/13/2017 Status: F Source: [place] 5:36 AM [facility] REPOSITORY TYPE CODE TESTS RESULT OUT OF RANGE REFERENCE UNITS LAB L300.4150 11.7-14.9 SECONDS Normal PROTIME 12.8 LAB L300.4200 Normal INR 1.0 Performed By: #### L300.3900 #### [facility] [address] [facility] [place], [address] BASIC METABOLIC Collected: 09/13/2017 Status: F Source: [place] PROFILE (BMP) 5:36 AM [facility] REPOSITORY TYPE CODE TESTS RESULT OUT OF RANGE REFERENCE UNITS LAB L501.0100 70-110 mg/dL Normal GLU 82 LAB L501.1000 7-18 mg/dL Normal BUN 7 LAB L501.1100 0.55-1.02 mg/dL Normal 0.63 CREAT,SERUM Result Comment: The validity of the calculated GFR AND GFRAA in patients over 70 years has not been determined. Clinical correlation is essential. LAB L501.1110 >60 mL/min Normal EST GFR 103 Result Comment: Non- GFR Calc LAB L501.1115 >60 mL/min Normal EST GFR - AA 125 Result Comment: GFR Calc LAB L501.1255 ml/min Normal Estimated CRCL 90.01 LAB L501.1300 10-20 RATIO Normal BUN/CRE 11.1 LAB L501.2200 8.5-10 mg/dL Normal .1 CA 8.5 LAB L501.5300 136-14 mmol/L Low 5 NA 130 LAB L501.5600 3.5-5. mmol/L Normal 1 K 4.0 LAB L501.5900 98-107 mmol/L Low CL 97 LAB L501.6100 21.0-3 mmol/L Normal 2.0 CO2 26.0 LAB L501.6200 5-15 Normal GAP 7 Performed By: #### L500.2500 #### [facility] [address] [facility] [place], [address] HISTORY AND PHYSICAL Observed: 09/12/2017 Status: F Source: [place] EXAM 5:53 PM [facility] REPOSITORY [facility] Medical Records Department [address] [place] [address] History and Physical 09/12/17 1604 MR#: [id number] Acct: [id number] Name: WALI HALL Rep #: [id number] : 1960 57 From: Justina Sanz MD PCP: Andrés Helms MD Status: ADM IN Y Location: [place] [address] Problem List (1) Seizure disorder Status: Chronic (2) Hyponatremia Status: Acute History of Present Illness Date of Admission: 09/12/17 Chief Complaint: Abnormal labs The patient is a 57 year old F with PMHx with seizure disorder, chronic hyponatremia who comes in from her PCPs office with abnormal blood work suggestive of sodium of 123. Patient complains of his symptoms are only a few months old. She started having seizures as well as memory problems. Has followed up with a dancing master 09/09/2017. Patient reports that she has had a PET scan done and biopsy of a nodule to follow-up for workup for lung cancer. She has stopped smoking. has her symptoms all written down. Patient admits to feeling very thirsty all the time and thinks maybe she drinks about 2 L of fluid every day. She has also recently followed up with a neurologist and was seen by the nurse practitioner who started her on Aricept and increase her Keppra to 750 mg twice daily. Complains of feeling fatigued, denies any fever or chills or shortness of breath. Denies passing large volumes of urine. Past Medical History Past Medical History (Chronic Problems): Chronic Problems (Last Reviewed 09/09/17 @ 13:38 by Denisse Chan) Seizure disorder (Chronic) Tobacco dependence in remission (Chronic) Allergies No Known Allergies Allergy (Verified 09/09/17 13:27) Home Medications: Ambulatory Orders Medication Instructions Recorded Donepezil HCl 10 mg PO QHS 09/12/17 Levetiracetam 750 mg PO Q12H 09/12/17 Surgical History: - - Bilateral carpal tunnel surgery, bilateral hammertoe surgery, lung biopsy Psychiatric History: No pertinent psych hx Lives: Spouse/ Significant Other Smoking Status: Former smoker Alcohol: Occasional Drugs: None - *Family History Maternal Family History: Family History (Last Reviewed 09/09/17 @ 13:27 by Denisse Chan) Mother Breast cancer Father Cancer History Items: - - no CVA Review of Systems Constitutional: Reports: Anorexia, Weakness. Denies: Chills, Fever, Weight Change HEENT: Denies: Head Aches, Hearing Changes, Sinus Congestion, Sinus Drainage Cardiovascular: Denies: Chest Pain, Claudication, Orthopnea, Palpitations, Paroxysmal Noc. Dyspnea Respiratory: Denies: Cough, Hemoptysis, Shortness of breath at rest, Sputum production Gastrointestinal: Denies: Abdominal Pain, Hematemesis, Hematochezia, Nausea, Vomiting Genitourinary: Denies: Dysuria, Frequency, Hematuria Musculoskeletal: Denies: Joint Pain, Joint Tenderness Skin: Denies: Rash, Wounds Neurological: Denies: Difficulty swallowing, Focal weakness, Numbness, Tingling Psychiatric: Denies: Anxiety, Depression, Homicidal Ideations, Suicidal Ideations Endocrine: Denies: Change in Body Habitus, Heat/ Cold Intolerance, Polyuria, Hx of Irradiation Hematologic/ Lymphatic: Denies: Easy Bruising, Easy Bleeding VTE Information - Inpt Only VTE Present on Admission: No VTE Pharm Prophylaxis ordered?: Yes - Physical Exam General: Alert, Oriented x3, Cooperative, No apparent distress HEENT: Atraumatic, PERRLA, EOMI, Normocephalic Neck: Supple Lungs: Clear to auscultation, Normal air movement Cardiovascular: Regular rate, Regular Rhythm, Normal S1, Normal S2, No murmurs Abdomen: Bowel Sounds Present, Soft, Non Tender, Non-Distended, No Hepato-splenomegaly Extremities: No edema Skin: No rashes, No breakdown Musculoskeletal: No Tenderness to Palpation of Joints or Extremities Lymphatic: No Cervical, Supraclavicular, or Inguinal Adenopathy Neurological: Cranial nerves II-XII grossly intact Psych/Mental Status: Normal Affect, Flat Affect - easily tearing up. Vital Signs Temp Pulse Resp BP Pulse Ox 97.9 F 79 16 124/73 H 99 09/12/17 14:40 09/12/17 15:11 09/12/17 14:40 09/12/17 14:42 09/12/17 14:40 Oxygen Delivery Method Room Air Weight: 62 kg Body Mass Index (BMI) 22.0 Finger Stick Blood Glucose 97 Assessment/Plan 57-year-old female with recent history of seizure disorder, amnesia/cognitive impairment, chronic hyponatremia, ongoing since the last 2 months, former smoker, history of lung nodule status post biopsy( PER PATIENT, DO NOT SEE IT IN THE SYSTEM) in as a direct admit with abnormal blood work 1. Hyponatremia, chronic, goes all the way back to July 2017, no acute change from baseline of around 126, repeat sodium in the hospital is 126 from 123, sending for possible SIADH. Plan: admit patient to PCU, workup for hyponatremia in place with urine sodium, urine electrolytes, urine creatinine, urine osmolality, continue gentle IV fluids, will also check TSH, nephrology consult, repeat blood work in a.m. 2. Seizure disorder, on Keppra, will put on seizure precautions 3. History of lung nodule, status post recent lung biopsy dancing master consulted 4. Cognitive impairment, following with neurology, started on Aricept, will continue on that with monitoring of heart rate 5. DVT PPx - Lovenox SC Code Visit Inpatient E AND M: 25038 Init Hosp L3 09/12/17 2690 <Electronically signed by Justina Sanz MD> Date Justina Sanz MD Cosigner Signature: Date (if applicable) CC: Justina Sanz MD; Andrés Helms MD Signed CREATININE, URINE Collected: 09/12/2017 Status: F Source: [place] (RANDOM) 5:30 PM [facility] REPOSITORY Order Comment: Order Date: 09/12/17 TYPE CODE TESTS RESULT OUT OF RANGE REFERENCE UNITS LAB L501.1200 NO RANGE EST. mg/dL Normal UR CREAT 24.30 Performed By: #### L501.1200 #### [facility] [address] [place], [place], [address] PROTEIN, URINE Collected: 09/12/2017 Status: F Source: [place] ([place]ANDOM) 5:30 PM [facility] REPOSITORY Order Comment: Order Date: 09/12/17 TYPE CODE TESTS RESULT OUT OF RANGE REFERENCE UNITS LAB L501.1930 <11.9 mg/dL Normal < 6.0 PROTEIN,UR.R AN. Performed By: #### L501.1930 #### [facility] [address] [place], [place], [address] URINALYSIS, COMPLETE Collected: 09/12/2017 Status: F Source: [place] 5:30 PM [facility] REPOSITORY Order Comment: Order Date: 09/12/17 How was Urine Obtained? PRIMER WATERPROOFING MACHINE OPERATOR TO SPECIFY TYPE CODE TESTS RESULT OUT OF RANGE REFERENCE UNITS LAB L400.3000 Yellow COLOR Normal Straw LAB L400.3050 Clear Normal CLARITY Clear LAB L400.3200 Normal mg/dl Normal GLUCOSE, UR Normal LAB L400.3300 Negative mg/dL Normal BILIRUBIN URINE Negative LAB L400.3400 Negative mg/dl Normal KETONE UR Negative LAB L400.3465 1.002-1.030 Normal SP.GR. DIPSTX 1.010 LAB L400.3550 5.0 - 8.0 pH UR Normal 7.0 LAB L400.3600 Negative mg/dl PROT Normal DIPSTX Negative LAB L400.3700 Normal mg/dl Normal UROBILI Normal LAB L400.3750 Negative Normal NITRITE UR Negative LAB L400.3780 Negative /ul High OCCULT BLOOD-UR 150 LAB L400.3800 Negative /ul LEUK Normal ESTERASE Negative LAB L400.4050 0-5 /hpf WBC 0 Normal SEEN LAB L400.4100 0-5 /hpf Normal RBC-UA 5-10 SEEN LAB L400.4150 5-10 /hpf SQUAM Normal EPI 0-5 SEEN LAB L400.4300 None Seen /hpf 0 Normal BACTERIA SEEN LAB L400.4350 <or=2+ /hpf 0 Normal MUCUS, URINE SEEN Performed By: #### L400.0001 #### [facility] [address] [place], [address] URINE ELECTROLYTES- Collected: 09/12/2017 Status: F Source: [place] RANDOM 5:30 PM [facility] REPOSITORY Order Comment: Order Date: 09/12/17 TYPE CODE TESTS RESULT OUT OF RANGE REFERENCE UNITS LAB L501.5500 Not Establ. mmol/L Normal UR NA 87 LAB L501.5800 Not Establ. mmol/L Normal UR K 23.0 LAB L501.6000 Not Establ. mmol/L Normal UR CL 83 Performed By: #### L500.9400 #### [facility] [address] [place], [place], [address] OSMOLALITY, URINE Collected: 09/12/2017 Status: F Source: [place] 5:30 PM [facility] REPOSITORY Order Comment: Order Date: 09/12/17 TYPE CODE TESTS RESULT OUT OF RANGE REFERENCE UNITS LAB L501.7400 mOsm/KG Normal 279 OSMOLALITY,U R Result Comment: OSMOLALITY URINE REFERENCE INTERVALS 24-hour Urine 300 - 900 mOsm/kg Random Urine 50 - 1400 mOsm/kg After 12 Hr fluid restriction >850 mOsm/kg Performed By: #### L501.7400 #### [facility] [address] [place], [place], [address] CBC-COMPLETE BLOOD CNT Collected: 09/12/2017 Status: F Source: [place] NO DIFF 3:51 PM [facility] REPOSITORY TYPE CODE TESTS RESULT OUT OF RANGE REFERENCE UNITS LAB L100.1000 4.4-11.0 K/mm3 Low WBC 4.1 LAB L100.1200 4.2-5.4 M/mm3 Low RBC 3.51 LAB L100.1300 12.0-15.0 g/dl Low HGB 11.6 LAB L100.1400 37-47 % Low HCT 33.0 LAB L100.1500 81-99 fL Normal MCV 94.0 LAB L100.1600 27.0-32.0 pg High MCH 33.0 LAB L100.1700 32-36 g/gl Normal MCHC 35.2 LAB L100.1810 11.6-14.6 % Normal RDW CV 12.4 LAB L100.1820 35.1-43.9 fl Normal RDW SD 42.0 LAB L100.1900 150-450 K/mm3 Normal PLT 278 LAB L100.2000 6.2-12.0 fl Normal MPV 8.6 Performed By: #### L100.0500 #### [facility] [address] [place], [address] COMPREHENSIVE METABOLIC Collected: 09/12/2017 Status: F Source: [facility] 3:51 PM [facility] REPOSITORY TYPE CODE TESTS RESULT OUT OF RANGE REFERENCE UNITS LAB L501.0100 70-110 mg/dL Normal GLU 86 LAB L501.1000 7-18 mg/dL Low BUN 6 LAB L501.1100 0.55-1.02 mg/dL Normal 0.62 CREAT,SERUM Result Comment: The validity of the calculated GFR AND GFRAA in patients over 70 years has not been determined. Clinical correlation is essential. LAB L501.1110 >60 mL/min Normal EST GFR 105 Result Comment: Non- GFR Calc LAB L501.1115 >60 mL/min Normal EST GFR - AA 127 Result Comment: GFR Calc LAB L501.1255 ml/min Normal Estimated CRCL 91.46 LAB L501.1300 10-20 RATIO Low BUN/CRE 9.7 LAB L501.1500 6.4-8. g/dL Normal 2 T PROT 6.9 LAB L501.1800 3.4-5. g/dL Normal 0 ALB 3.6 Result Comment: Please note revised Albumin AND Globulin reference range effective 2017. LAB L501.1950 2.2-4.2 g/dL Normal GLOB 3.3 LAB L501.2000 0.9-2.4 RATIO Normal A/G 1.1 LAB L501.2200 8.5-10.1 mg/dL Low CA 8.3 LAB L501.4100 15-37 U/L Normal AST 22 LAB L501.4305 45-117 U/L Normal ALK P 78 LAB L501.4405 12-78 U/L Normal ALT 36 LAB L501.4600 0.20-1.00 mg/dL Normal T BILI 0.60 LAB L501.5300 136-145 mmol/L Low NA 126 LAB L501.5600 3.5-5.1 mmol/L Normal K 4.0 LAB L501.5900 98-107 mmol/L Low CL 92 LAB L501.6100 21.0-32.0 mmol/L Normal CO2 27.0 LAB L501.6200 5-15 Normal GAP 7 Performed By: #### L500.4050, L501.5200 #### [facility] [address] [facility] [place], [address] MAGNESIUM Collected: 09/12/2017 Status: F Source: [place] 3:51 PM [facility] REPOSITORY TYPE CODE TESTS RESULT OUT OF RANGE REFERENCE UNITS LAB L501.5200 1.6-2.6 mg/dL Normal MG 1.9 Result Comment: Please note revised Magnesium reference range effective 2017. Performed By: #### L500.4050, L501.5200 #### [facility] [address] [facility] [place], [address] OSMOLALITY, SERUM Collected: 09/12/2017 Status: F Source: [place] 3:51 PM [facility] REPOSITORY TYPE CODE TESTS RESULT OUT OF RANGE REFERENCE UNITS LAB L501.7300 275-295 mOsm/KG Low 258 OSMOLALITY,S ER Performed By: #### L501.7300 #### [facility] [address] [facility] [place], [address] THYROID STIM HORMONE Collected: 09/12/2017 Status: F Source: [place] (TSH) 3:51 PM [facility] REPOSITORY Order Comment: Comments: as add on test TYPE CODE TESTS RESULT OUT OF RANGE REFERENCE UNITS LAB L501.9520 0.358-3.74 uIU/mL Normal TSH 0.58 Performed By: #### L501.9520 #### [facility] [address] [place], [address] BASIC METABOLIC Collected: 09/12/2017 Status: F Source: [place] PROFILE (BMP) 8:21 AM [facility] REPOSITORY TYPE CODE TESTS RESULT OUT OF RANGE REFERENCE UNITS LAB L501.0100 70-110 mg/dL Normal GLU 75 LAB L501.1000 7-18 mg/dL Normal BUN 8 LAB L501.1100 0.55-1.02 mg/dL Normal 0.69 CREAT,SERUM Result Comment: The validity of the calculated GFR AND GFRAA in patients over 70 years has not been determined. Clinical correlation is essential. LAB L501.1110 >60 mL/min Normal EST GFR 92 Result Comment: Non- GFR Calc LAB L501.1115 >60 mL/min Normal EST GFR - AA 112 Result Comment: GFR Calc LAB L501.1300 10-20 RATIO Normal BUN/CRE 11.6 LAB L501.2200 8.5-10.1 mg/dL CA Normal 8.8 LAB L501.5300 136-145 mmol/L Low NA 123 LAB L501.5600 3.5-5.1 mmol/L K Normal 4.2 LAB L501.5900 98-107 mmol/L Low CL 88 LAB L501.6100 21.0-32.0 mmol/L Normal CO2 26.0 LAB L501.6200 5-15 Normal GAP 9 Performed By: #### L500.2500 #### [facility] [address] [place], [address] PULMONARY VISIT REPORT Observed: 09/09/2017 Status: F Source: [place] 3:15 PM [facility] REPOSITORY [facility] [address] [place] [address] OFFICE VISIT Date of Service: 09/09/17 MR#: [id number] Acct: [id number] Name: WALI HALL Rep #: [id number] : 1960 Provider: Ricky Vargas D.O. Age/Sex: 57/F Location: [facility].PMW Status: Signed Assessment AND Plan 1. Abnormal CAT scan R93.8 Plan I did discuss the patient's CT chest findings with her in great detail today. Although PET scans are a good imaging modality, they are not 100% full proof from a diagnostic perspective. I did discuss the possibility of proceeding with a mediastinal lymph node evaluation via EBUS, regardless of the results of her PET scan. I did explain to the patient that this would be the most definitive form of workup and evaluating her enlarged lymph nodes. Although reluctant, she would like to proceed with scheduling the bronchoscopy procedure at this time. I will also request that the patient's PET scan results be forwarded to us for review. CBC and coagulation profile will need to be obtained prior to the procedure. Risks and benefits were reviewed and questions were answered accordingly. Orders Orders: 2. Hyponatremia E87.1 Plan Unclear etiology at this time. Initial concern that this could represent a paraneoplastic syndrome. 3. Tobacco dependence in remission F17.201 Plan Ongoing tobacco cessation strongly encouraged. It would be advisable that the patient undergo baseline pulmonary function testing at some point in the future. Orders Orders: 4. Seizure disorder G40.909 Plan The patient is currently on Keppra with plans to follow-up with neurology. Plan Detail Follow Up 4 Weeks (DMB) HPI HPI Comments Details: The patient is a 57-year-old female who presents to the clinic today and referral for abnormal chest imaging. The patient was recently admitted to the hospital at the end of July 2017 for altered mental status. During that hospitalization she was noted to be hyponatremic. Her sodium was low as 125. She was treated with IV fluids and was seen in consultation by neurology. They did not feel that she sustained a stroke. Rather, they felt that her altered mentation was a consequence of her serum sodium level. She then returned to the emergency department on August 28 with unresponsiveness and seizure-like activity. A CTA chest was obtained at that time which revealed no evidence for PE. However, there was evidence of subcarinal and bilateral hilar adenopathy, along with a 4 mm noncalcified lung nodule in the right lower lobe. There was additional note of a potential lytic lesion in the patient's spine. The patient was started on Keppra. The patient reportedly had an EEG completed which was not consistent with seizure-like activity. Echocardiogram from July 2017 revealed normal LV size with an ejection fraction of 55%. Pulmonary artery systolic pressure was estimated to be 46 mmHg. The patient has an extensive smoking history of 2 packs per day 40 years, having quit completely in July 2017. She reports no significant exertional shortness of breath. She denies the presence of a cough, chest tightness or wheezing. She has never undergone formal pulmonary function testing previously, nor does she utilize any inhalers at her baseline. She reports that her weight has been increasing since she quit smoking. She has gained approximately 18 pounds over the last 3-4 weeks. The patient worked previously at [employer] She has lived in [place] her entire life. Aside from the chest imaging aforementioned, the patient has never had any other CT scan done previously. She reportedly had a PET scan completed in [place] last week. The results of that PET scan is not available yet today. She denies the presence of fevers, chills or night sweats. She denies chest pain, dizziness or lightheadedness. She is scheduled to follow-up with neurology tomorrow. MRI brain also completed in July 2017 showed no evidence of findings concerning for metastatic lesions. 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 Accompanied by: Spouse Allergies No Known Allergies Allergy (Verified 09/09/17 13:27) Medications levetiracetam 500 mg tablet 500 mg PO Q12H #60 tab 08/29/17 [Rx Confirmed 09/09/17] PFSH Medical History Abnormal CAT scan (Acute) TGA (transient global amnesia) (Acute) Hyponatremia (Acute) Surgical History H/O breast augmentation (Acute) History of carpal tunnel release (Acute) hammer toe repair (Acute) Family History Mother Breast cancer Father Cancer brain and lung Social History Smoking Status: Former smoker quit date: 08/10/17 pack-years: 80 how long ago did patient quit smokin alcohol intake: current alcohol intake frequency: a few times a month what type of physical activity do you participate in: none Review of Systems Const CONSTITUTIONAL: Negative anorexia, body ache, chills, daytime sleepiness, fever(s), night sweats, oral thrush, stops breathing during sleep, weight loss, sleeping in chair, fatigue, weight loss, weight gain, frequent colds, seasonal allergies, other, headache(s) or orthopnea EETM Ear Nose Throat Mouth: Positive hearing normal; negative hoarseness, dry mouth in morning, change in vision, itchy eyes, eye pain, swallowing Difficulty, ear pain, headache(s), mouth pain, nasal congestion, nasal discharge, sinus pain, sinus pressure, sore throat, other, hard of hearing, nose bleed or post nasal drip Cardio Cardiovascular: Negative chest pain, chest pain at rest, chest pain with activity, irregular heart rhythm, edema, shortness of breath when lying down, palpitations, other or murmur Resp Respiratory: Positive as per HPI; negative shortness of breath, pain with cough, wheezing, chest congestion, cough, chest tightness, pain on inspiration, inhalers, increase use of rescue inhalers, snoring, apnea or other Gastro Gastrointestional: Negative bloody stools, change in appetite, difficulty swallowing, reflux, hematemesis, melena stool, loose stool, constipation or other Genitourinary: Negative blood in urine, nocturia, pain with urination or other Musc Musculoskeletal: Negative body pain, back pain, neck pain or other Skin/Breast Skin/Breast: Negative dry skin, itching, unusual bruising, breast lump, other or rash Neuro Neurological: Negative restless legs, confusion, weakness or other Psych Psychocological: Negative abnormal sleep pattern, anxiety, thoughts of hurting self/others, hopelessness or other Lymph Lymphatic: Negative easy bleeding, easy bruising, other or swollen lymph nodes Exam Const Constitutional: Positive cooperative, in no acute respiratory distress and conversant Head Head: Positive normocephalic and atraumatic Eyes Eye: Positive clear conjunctiva; negative nystagmus or scleral abnormality Ears Ear: Positive hearing normal; negative hard of hearing Nose Nose: Positive external nose normal; negative epistaxis Mouth Mouth: Positive oral mucosae normal, no lesions and posterior oropharynx is adequate; negative post nasal drip Neck Neck: Positive normal visual inspection and trachea midline; negative JVD Chest Wall Chest: Positive symmetric chest movement Resp lung sounds: Positive diminished and normal expiratory time; negative wheezes, rhonchi or rales Cardio Cardiac: Positive regular rate, regular rhythm, S1 normal and S2 normal; negative rub, gallop or murmur GI GI: Positive normal bowel sounds; negative distended Genitourinary: Positive deferred Musc Musculoskeletal: Positive steady gait Skin Pulmonary Skin Exam: Positive intact; negative lesion, ulcers or rash Pulses Pulse: Yes Pedal pulses present: Extremities Extremities: No clubbing, No cyanosis, No edema Neuro Neurologic: Yes no focal neuro deficits, Yes cooperative, Yes normal cognition, Yes conversant Lymph Lymphatic: No lymphadenopathy Psych Appearance: Positive grossly normal Mental Status: Positive mental status grossly normal Mood: Positive congruent mood Affect: Positive normal affect Coding Level of Care Code Off vis,new,level 5 Diagnoses Abnormal CAT scan R93.8 Hyponatremia E87.1 Tobacco dependence in remission F17.201 Seizure disorder G40.909 09/09/17 1515 <Electronically signed by Ricky Vargas DO> Date Ricky Vargas DO Cosigner Signature: Date (if applicable) CC: Andrés Helms MD INTERNAL MEDICINE Observed: 09/09/2017 Status: F Source: [place] OFFICE VISIT 8:20 AM [facility] [address] [place] [address] OFFICE VISIT Date of Service: 09/06/17 MR#: [id number] Acct: [id number] Name: WALI HALL Rep #: [id number] : 1960 Provider: Andrés Helms MD Age/Sex: 57/F Location: [facility] Status: Signed Intake Vital Signs09/06/17 Height 5 ft 6 in 09/06/17 Weight: 143 lb 8 oz 09/06/17 Body Mass Index (BMI) 23.1 09/06/17 Blood Pressure 124/83 09/06/17 Blood Pressure Location Lt brachial Intake Visit Reasons: 2 W FU Chief Complaint: follow-up visit Accompanied by: Is patient in pain?: No Allergies No Known Allergies Allergy (Verified 08/16/17 13:35) Medications levetiracetam 500 mg tablet 500 mg PO Q12H #60 tab 08/29/17 [Rx Confirmed 08/29/17] [facility] Surgical History H/O breast augmentation (Acute) History of carpal tunnel release (Acute) hammer toe repair (Acute) Family History Mother Breast cancer Father Cancer brain and lung Social History Smoking Status: Former smoker how long ago did patient quit smokin alcohol intake: current alcohol intake frequency: a few times a week what type of physical activity do you participate in: none HPI 2 W FU: Chief Complaint: follow-up visit Details: WALI HALL, is a 57yo F who presents to the office today for follow up. She has no acute complaints at this time. She was started on Keppra at her last visit due to recurrent seizure like episodes. She is tolerating medication well and has had no repeat episodes since starting medication. She had her PET scan done today in [place] and is scheduled to follow up with Pulmo on saturday. She is also scheduled to follow up with neurology on sunday 09/10. ROS Const Constitutional: No weight change, body ache, chills, fatigue, sleep problems, fever(s), change in appetite, snoring, weakness, frequent falls, headache(s) or excessive sweating Eyes Eyes: No change in vision, eye pain, light sensitivity or blurry vision ENT ENT: No headache(s), abnormal hearing, ear pain, tinnitus, nasal congestion, sore throat or neck pain Resp Respiratory: No snoring, cough, shortness of breath or wheezing Cardio Cardiology: No excessive sweating, chest pain at rest, chest pain with exertion, shortness of breath, dyspnea on exertion, palpitations, orthopnea or lightheadedness Gastro GI: No abdominal pain, change in bowel habits, constipation, diarrhea, vomiting, nausea/dyspepsia or cramping Musc Musculoskeletal: No neck pain, abnormal walking, joint pain, back pain, limited range of motion, numbness or tingling Skin Skin: No redness, dry skin, itching, lesions, wounds or rash Neuro Neurology: No weakness, frequent falls, headache(s), abnormal hearing, abnormal walking, numbness, tingling, abnormal speech, dizziness or memory loss Psych Psychiatric: No change in appetite, No memory loss, No anxiety, No depression, No Thoughts of harming yourself/Others Endo Endocrine: No fatigue, excessive sweating, cold intolerance, increased thirst/drinking, heat intolerance, flushing or increased hunger Aller/Imm Allergy/Immunologic: No wheezing, itchy eyes, hives or seasonal allergy symptoms Patrice/Lymp Hematologic/Lymphatic: No easy bleeding, easy bruising or enlarged lymph nodes Exam Const General: cooperative, no acute distress Orientation: alert, awake, oriented x3 HENMT Head: atraumatic, normocephalic Ears: hearing grossly normal bilaterally Neck Neck: no lymphadenopathy, full ROM Neck mass: No Thyroid: thyroid normal Resp Effort AND Inspection: normal respiratory effort, able to speak in complete sentences Auscultation: Bilateral: Clear to Auscultation Cardio Rate: regular rate Rhythm: regular rhythm Heart Sounds: S1 normal, S2 normal Neuro General: alert, awake, oriented x3, CN's II-XI intact bilaterally, moves all extremities Extrem General: no pedal edema Psych Appearance: grossly normal Affect: normal affect Assessment AND Plan 1. Seizure R56.9 Plan patient has had 4 episodes of seizure like activity. EEG done during last hospital stay however not suggestive of seizures. Started on keppra. Tolerating medication well and has had no further repeat episodes. Continue current medication. Follow up with Neurology on saturday. No driving until at least 6 months seizure free. 2. Hyponatremia E87.1 Plan BMP last checked on 08/29, stable. Continue current plan. Repeat in 1 week. Orders Orders: 3. Lung nodule R91.1 Plan Had a PET scan done today. Scheduled to follow up with pulmo on saturday 09/09. Will follow. This note was generated with [employer] dictation software. It may contain incorrect words, spelling, and punctuation that were not noted in checking the note before signing. Plan Detail Follow Up 1 Month Coding Level of Care Code Off vis,est,level 3 Diagnoses Seizure R56.9 Hyponatremia E87.1 Lung nodule R91.1 09/09/17 0820 <Electronically signed by Andrés Helms MD> Date Andrés Helms MD Cosigner Signature: Date (if applicable) CC: PET SOLITARY PULMONARY Observed: 09/06/2017 Status: F Source: [facility] NODULE 8:00 AM [facility] REPOSITORY ORIGINAL WHOLE BODY PET/CT FROM SKULL BASE TO THE MID THIGH CLINICAL INDICATION: solitary pulmonary nodule COMPARISON: Prior imaging performed at [facility] was unable to be obtained for comparison Technique: The patient was injected with 3 mCi of fluorine 18 fluorodeoxyglucose. Beginning 50 minutes later, combined PET/CT imaging was performed from the skull base to the upper thigh. Contrast was n ot administered for the CT portion of the study. Glucose level at the time of injection was 86 mg/dl. FINDINGS: SKULL BASE AND NECK: There is no cervical mass or adenopathy. No focal abnormal FDG uptake is seen in the neck. Degenerative changes are present in the cervical spine. There are atherosclerotic calcific ations of the carotid arteries. CHEST: The heart is normal in size. The aorta and pulmonary arteries are normal in caliber. Although lack of contrast limits evaluation, there are several lymph nodes within the mediastinum which demonstrate increased metabolic activity. There is a right preaortic lymph node measuring 9 mm wit h maximum SUV of 6.4 (image 78, series 3). A conglomerate of right hilar lymphadenopathy demonstrating a maximum SUV of 12.0 (image 79, series 3). There is a subcarinal lymph node measuring 9 mm in maxi mum SUV of 7.3 (image 75, series 3). A second, subcarinal lymph node measuring 1.1 cm also is metabolically active with an SUV of 7.3 (image 80, series 3). Other nonmetabolically active lymph nodes demonstrate areas of calcification. The trachea and mainstem bronchi are patent. There is mild centrilobular emphysema seen bilaterally. Scattered areas of pleural thickening bilaterally are likely related to scarring. There is a calcifie d granuloma within the right lower lobe. No focal consolidation, pleural fluid, or pneumothorax. There is a 6 mm nodule within the right lower lobe (image 90, series 3). There is a 4 mm nodule seen within the left lower lobe (image 90, series 3). A second 5 mm nodule is also seen within the left lo wer lobe (image 60, series 3). A 5 mm nodule is also seen within the left upper lobe (image 64, series 3). None of these nodules demonstrate significant metabolic activity and all are below the resolution of PET. There are partially calcified breast implants seen bilaterally, right greater than left. Within the right breast implant, there are multiple, linear densities seen within. No abnormality is seen externa l to the right breast implant capsule. The left breast implant is intact. There is asymmetric activity seen within the right subscapularis muscle without underlying mass. Degenerative changes are appreciated with several, likely remote compression deformities seen involving t he lower thoracic spine. No acute skeletal abnormality is seen. The distribution of FDG throughout the thorax is physiologic. ABDOMEN AND PELVIS: The liver, pancreas, and adrenal glands are unremarkable. There are multiple calcified granulomas within the spleen. The gallbladder is present and appears unremarkable. The aorta an d IVC are normal in caliber. There is mild atherosclerotic calcification of the aorta. No adenopathy, mass or ascites is seen. The kidneys and ureters are not remarkable. There is severe sigmoid colonic diverticulosis, no evidence of acute diverticulitis. Degenerative changes are seen to the visualized lumbar spine. No suspicious skeletal findings are noted. The pelvic images demonstrate a normal appearance of the urinary bladder. The uterus and adnexa are unremarkable FDG distribution in the abdomen and pelvis is physiologic. IMPRESSION: 1. Hypermetabolic mediastinal lymphadenopathy as described above. Given the degree of metabolic activity, findings are concerning for a malignant process. 2. Asymmetric increased activity within the right subscapularis muscle without underlying mass or abnormality. Findings may be related to trauma, correlation with physical examination and patient histor y is recommended. If of further clinical concern, MRI with and without contrast can be performed. 3. Multiple, subcentimeter lung nodules as described above. Findings are too small to be accurately characterize by PET. Followup as follows per the 2017 Fleischner Society Recommendations for multiple solid lung nodules measuring > 8 mm (average of long- and short-axis diameters, rounded to the nearest mm), and malignancy risk: Low-Risk Patient: Consider CT at 3-6 months, then consider CT at 18-24 months High-Risk Patient: CT at 3-6 months, then at 18-24 months These followup recommendations do not apply in immunocompromised patients or patients with cancers who are at risk for metastasis. 4. Findings concerning for right breast implant rupture. Correlation with patient's history and mammography is recommended. I have personally reviewed the images of this examination and agree with the resident's findings and interpretation. Interpreted By: Eric Estrada MD Preliminary Report By: Addison Rosenberg MD Electronically Signed By: Eric Estrada MD Dictated Date: 09/09/2017 8:17:15 AM Prelim Date: 09/09/2017 9:41:14 AM Sign Date: 09/09/2017 10:11:00 AM SCREENING MAMM (CAD), Observed: 09/03/2017 Status: F Source: [place] BILAT 9:56 AM [facility] REPOSITORY [facility] Imaging Services [address] [place] [address] SCREENING MAMM (CAD), BILAT MR#: [id number] Acct: [id number] Name: WALI HALL Rep #: [id number] : 1960 F 57 From: Ilya Elliott MD PCP: Andrés Helms MD Status: REG CLI Study: SCREENING MAMM (CAD), BILAT Date of Exam: 09/03/17 Exam# [id number] Ordering Dr: Andrés Helms MD MAMMOGRAPHY - BILATERAL SCREENING REASON FOR EXAM: Female, 57 years old. Routine annual screening examination. PERTINENT HISTORY: Mother with breast cancer. Bilateral breast implants. TECHNIQUE: Digital bilateral breast vani (3D mammographic acquisition) in the CC and MLO projections. 2-D mediolateral oblique (MLO) and craniocaudad (CC) views of both breasts were obtained. CAD: Full Field Digital Mammography with Computer Added Detection was performed. COMPARISON: No comparison mammograms available at this time. If any prior films become available, an addendum to this report can be generated. FINDINGS: Breast Composition: There are scattered areas of fibroglandular density. There are no dominant masses or suspicious calcifications. Bilateral breast implants. No other significant abnormalities are identified. HPBI/SCREENING MAMM (CAD), BILAT IMPRESSION: Negative screening mammogram. Yearly followup mammogram recommended. (A) ASSESSMENT CATEGORY: BIRADS Category 2: Benign. A letter regarding these results will be sent to the patient by the facility within 30 days. Approximately 10% of breast cancers are not detected by mammography. A normal mammogram should not delay biopsy of a clinically suspicious abnormality. [id number] Electronically Signed: Ilya Elliott MD at 11:09 EST Tel [phone], Service support , CC: Andrés Helms MD Coal Gasification Technician: Signed INTERNAL MEDICINE Observed: 09/02/2017 Status: F Source: [place] OFFICE VISIT 1:03 PM [facility] Internal Medicine [address] [place] [address] OFFICE VISIT Date of Service: 08/29/17 MR#: [id number] Acct: [id number] Name: WALI HALL Rep #: [id number] : 1960 Provider: Andrés Helms MD Age/Sex: 57/F Location: [facility] Status: Signed Intake Vital Signs08/29/17 Height 5 ft 6 in 08/29/17 Weight: 139 lb 08/29/17 Body Mass Index (BMI) 22.4 08/29/17 Blood Pressure 122/80 08/29/17 Blood Pressure Location Rt brachial Intake Visit Reasons: s/p ED Chief Complaint: black outs Accompanied by: Is patient in pain?: No Allergies No Known Allergies Allergy (Verified 08/16/17 13:35) Medications levetiracetam 500 mg tablet 500 mg PO Q12H #60 tab 08/29/17 [Rx Confirmed 08/29/17] PFSH Surgical History H/O breast augmentation (Acute) History of carpal tunnel release (Acute) hammer toe repair (Acute) Family History Mother Breast cancer Father Cancer brain and lung Social History Smoking Status: Former smoker how long ago did patient quit smokin alcohol intake: current alcohol intake frequency: a few times a week what type of physical activity do you participate in: none HPI s/p ED: Chief Complaint: black outs Details: WALI HALL, is a 57yo F who presents to the office today for follow-up of recent ER visit. She was seen about a week ago for new onset seizure like this disorder and hyponatremia. Prior to her visit here she had been recently hospitalized for the above symptoms and was seen by the neurologist. At her initial office visit, the assumption was hyponatremia/seizures possibly due to SIADH/paraneoplastic symptoms possibly secondary to a lung tumor. A CAT scan was ordered. However she had another seizure-like episode and was seen again in the ER at which point she had the CAT scan of her lungs done. CAT scan done showed a lung nodule with hilar adenopathy. Also seen on the CAT scan were lytic thoracic spine lesions. She has no acute complaints at this time however is concerned about the lesions found on the imaging. She has had no recent mammogram or colonoscopy. ROS Const Constitutional: No weight change, body ache, chills, fatigue, sleep problems, fever(s), change in appetite, snoring, weakness, frequent falls, headache(s) or excessive sweating Eyes Eyes: No change in vision, eye pain, light sensitivity or blurry vision ENT ENT: No headache(s), abnormal hearing, ear pain, tinnitus, nasal congestion, sore throat or neck pain Resp Respiratory: No snoring, cough, shortness of breath or wheezing Cardio Cardiology: No excessive sweating, chest pain at rest, chest pain with exertion, shortness of breath, dyspnea on exertion, palpitations, orthopnea or lightheadedness Gastro GI: No abdominal pain, change in bowel habits, constipation, diarrhea, vomiting, nausea/dyspepsia or cramping Musc Musculoskeletal: No neck pain, abnormal walking, joint pain, back pain, limited range of motion, numbness or tingling Skin Skin: No redness, dry skin, itching, lesions, wounds or rash Neuro Neurology: No weakness, frequent falls, headache(s), abnormal hearing, abnormal walking, numbness, tingling, abnormal speech, dizziness or memory loss Psych Psychiatric: No change in appetite, No memory loss, No anxiety, No depression, No Thoughts of harming yourself/Others Endo Endocrine: No fatigue, excessive sweating, cold intolerance, increased thirst/drinking, heat intolerance, flushing or increased hunger Aller/Imm Allergy/Immunologic: No wheezing, itchy eyes, hives or seasonal allergy symptoms Patrice/Lymp Hematologic/Lymphatic: No easy bleeding, easy bruising or enlarged lymph nodes Exam Const General: cooperative, comfortable, no acute distress Orientation: alert, awake, oriented x3 [facility] Head: atraumatic, normocephalic Ears: hearing grossly normal bilaterally Resp Effort AND Inspection: normal respiratory effort, able to speak in complete sentences Auscultation: Bilateral: Clear to Auscultation, Diminished Lung Sounds (Reduced air entry) Cardio Rate: regular rate Rhythm: regular rhythm Heart Sounds: S1 normal, S2 normal GI Palpation: soft, no hepatosplenomegaly Neuro General: oriented x3, awake, alert, moves all extremities, CN's II-XI intact bilaterally Assessment AND Plan 1. Lung nodule R91.1 Plan Lung nodules discovered on CAT scan of the lungs with hilar adenopathy. Patient has a greater than 79-pcgm-fmue smoking history. Due to the above symptoms I believe she will benefit from a PET scan, this was ordered. Mammogram also ordered. Referred to pulmonary for possible biopsy. Follow-up with results. Orders Orders: 2. Abnormal CAT scan R93.8 Plan Lytic lesions of the thoracic spine noted on the CAT scan. MRI of thoracic spine ordered. Follow-up with results. 3. Seizure-like activity R56.9 Plan She has also had 4 episodes of these. Possibly Paraneoplastic. Will start her on Keppra 500 mg twice daily. Continue follow-up with neurology. 4. Hyponatremia E87.1 Plan Sodium has remained stable the last 2 checks. Last Sodium level was 129. Serum osmolality slightly reduced. Normal urine osmolality. 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 Will follow. This note was generated with [employer] dictation software. It may contain incorrect words, spelling, and punctuation that were not noted in checking the note before signing. in the context of Orders Orders: Plan Detail Other Orders Orders: Referrals: Other Medications New: Coding Level of Care Code Off vis,est,level 3 Diagnoses Lung nodule R91.1 Abnormal CAT scan R93.8 Seizure-like activity R56.9 Hyponatremia E87.1 09/02/17 1303 <Electronically signed by Andrés Helms MD> Date Andrés Helms MD Cosigner Signature: Date (if applicable) CC: EMERGENCY DEPARTMENT Observed: 08/29/2017 Status: F Source: [place] SUMMARY 3:35 AM [facility] REPOSITORY [facility] Medical Records Department [address] [place] [address] Emergency Department Summary 08/28/17 2356 MR#: [id number] Acct: [id number] Name: WALI HALL Rep #: [id number] : 1960 57 From: Cyrus Archer MD PCP: Andrés Helms MD Status: DEP ER - ER Visit Summary Date of Service: 08/28/17 Chief Complaint: Unresponsive episode History of Present Illness: The patient is a [address] Helms and Dr. Hussein. This is her fourth episode since August 102016 of an episode of amnesia. This evening she was watching TV with her . He reports that she made a noise and then would not respond to him. He shook her and she did not respond. She had diffuse stiffness though reports that this was not as severe as previous. No tonic-clonic activities. He put her shoes on and she was able to stand up during this episode. She still was not speaking. The patient has amnestic to all of this. She reports that she remembers becoming aware in the ambulance. estimates that altogether this lasted approximately 20 minutes. She did not bite her tongue or have urinary incontinence. Patient was admitted for this last month and had a MRI that showed no stroke. CTA showed no significant disease. Sodium was 126 and her symptoms were attributed to that. Review of systems: General: No fever, chills, cold sweats. Cardiovascular: No chest pain, palpitations. Respiratory: No cough, shortness of breath, dyspnea on exertion. Gastrointestinal: No abdominal pain, nausea, vomiting, diarrhea, melena, or hematochezia. Genitourinary: No dysuria, frequency, hematuria. Skin: No rash. Neuro: No headache, numbness, weakness. Physical Examination: Vitals: Stable. Afebrile. General: Well-nourished and well-developed. Head: Normocephalic atraumatic. Neck: Supple, no lymphadenopathy. No JVD. Nontender. Cardiovascular: Regular rate and rhythm. No murmurs. Respiratory: No respiratory distress. Clear to auscultation bilaterally. Abdominal: Soft, nontender, nondistended, normal bowel sounds. No guarding, rebound, or peritoneal signs. Back: Nontender. Extremities: Nontender, no edema. Skin: Normal color, no rash. Neurologic: Alert and oriented 3. Cranial nerves II through XII are intact. Normal strength and sensation. Psych: Normal affect. Test Results: Chem-7 is remarkable for a sodium of 129, chloride of 95, and calcium of 8.4. Reviewing her sodiums they have been between 125 and 130 since August 16. It appears that her primary care physician in the workup for her hyponatremia was going to obtain a CT of the chest. This was performed and shows no PE. There is a 4 mm noncalcified nodule in the right lower lobe. There is mediastinal and right hilar adenopathy. There are also probable lytic lesions of her T7 and T8 vertebral bodies. Emergency Department Course and Treatment: Patient has been stable here and has had no further episodes. Treatment Plan: I was unable to reach Dr. Hussein. However, I do not think that this is neurologic in etiology and she can follow-up as an outpatient as previously scheduled. More worrisome is the lytic lesion and hilar adenopathy. The patient reports that she had a mammogram about 30 years ago. She has never had a colonoscopy. I discussed the patient that she needs to see her primary care physician as soon as possible and get an MRI of her thoracic spine and further workup of the lytic lesion. At this time a primary has not been identified. Disposition: To home in improved and stable condition. Impression: 1. Transient global amnesia, recurrent. 2. Mediastinal and right hilar adenopathy. 3. 4 mm noncalcified nodule right lower lobe. 5. Probable multiple lytic lesions in T7 and T8 vertebral bodies. This note was generated with [employer] dictation software. It may contain incorrect words, spelling, and punctuation that were not noted in review of the chart prior to signing ED Disposition - Plan for ED Patient: Chief Complaint: Alt LOC Instructions: ED Nodule Solitary Pulmonary Referrals: Andrés Helms MD [Primary Care Provider] - As soon as possible Additional Instructions: Speak with Dr. Helms about the concerning findings on your CAT scan. These include: 1. Mediastinal and right hilar adenopathy. 2. 4 mm noncalcified nodule right lower lobe. 3. Probable lytic lesions vertebral bodies T7 and T8. These findings raise the concern for cancer. However, they do not show a primary tumor. You will need evaluation to find and/or rule out cancer. This could potentially include a mammogram, colonoscopy, PET scan, and you will likely need an MRI of your back to look for other lytic lesions. What to do if you have Problems For any increased pain, shortness of breath, bleeding, nausea or vomiting, chest pain, or any unexpected problems, contact your Primary Care Provider. Call [email or web address] ([phone]) or report to the closest Emergency Room. Call 911 if necessary. 08/29/17 0335 <Electronically signed by Cyrus Archer MD> Date Cyrus Archer MD Cosigner Signature (If Indicated): Date CC: Andrés Helms MD CTA CHEST W/WO Observed: 08/28/2017 Status: F Source: [place] CONTRAST 11:24 PM [facility] REPOSITORY [facility] Imaging Services [address] [place] [address] CTA Chest W/WO Contrast MR#: [id number] Acct: [id number] Name: WALI HALL Rep #: [id number] : 1960 F 57 From: Mark Marcus MD PCP: Andrés Helms MD Status: REG ER Study: CTA Chest W/WO Contrast Date of Exam: 08/29/17 Exam# [id number] Ordering Dr: Cyrus Archer MD STUDY: CTA CHEST REASON FOR EXAM: Female, 57 years old. Patient found unresponsive. RADIATION DOSAGE (If Supplied By Facility): CTDIvol = ( 15.08 ) mGy, DLP = ( 276.42 ) mGycm TECHNIQUE: The examination was performed with the intravenous administration of 75ML ml of Isovue 370 contrast material. Post-processing of the angiographic images was performed, with multiplanar reformation. Individualized dose optimization techniques were used for this CT. COMPARISON: None. FINDINGS: Normal enhancement of the main pulmonary artery and right and left pulmonary arteries. There is limited enhancement of the bilateral peripheral pulmonary arteries. There is no demonstrated pulmonary embolism. Normal thoracic aorta and visualized great vessels. There is no demonstrated aortic dissection. Normal heart and pericardium. There are prominent subcarinal nodes. There are enlarged nodes in the right hilar region and to a lesser extent on the left side. Normal visualized trachea and bronchi. The lungs are well expanded. There are mild emphysematous changes in the upper lobes. There is a small pleural-based density in the right upper lobe with adjacent small calcification likely due to scarring. Small tumor is unlikely. There is a 4 mm noncalcified nodule in the right lower lobe seen on image 90 series 2. No focal infiltrate is seen. There are no pleural effusions. There are calcified bilateral breast implants. There are degenerative changes of thoracic spine. There is demineralization of the osseous structures and increased kyphosis. There is mild impression of the superior endplate of T7 vertebra. There is questionable lytic area in the vertebral body of T8. The visualized portions of the upper abdomen are unremarkable. CT/CTA Chest W/WO Contrast IMPRESSION: No evidence of pulmonary embolism. Mediastinal and right hilar adenopathy. Emphysematous and mild cystic changes likely chronic. 4 mm noncalcified nodule in the right lower lobe. Portable lytic lesion in vertebral body of T7-T8. Further evaluation with MRI of the thoracic spine is recommended. Electronically Signed: Mark Marcus MD at 1:35 EST Tel , Service support , CC: Andrés Helms MD; Cyrus Archer MD Coal Gasification Technician: Signed BASIC METABOLIC Collected: 08/28/2017 Status: F Source: [place] PROFILE (BMP) 10:55 PM [facility] REPOSITORY TYPE CODE TESTS RESULT OUT OF RANGE REFERENCE UNITS LAB L501.0100 70-110 mg/dL Normal GLU 95 LAB L501.1000 7-18 mg/dL Normal BUN 10 LAB L501.1100 0.55-1.02 mg/dL Normal 0.62 CREAT,SERUM Result Comment: The validity of the calculated GFR AND GFRAA in patients over 70 years has not been determined. Clinical correlation is essential. LAB L501.1110 >60 mL/min Normal EST GFR 105 Result Comment: Non- GFR Calc LAB L501.1115 >60 mL/min Normal EST GFR - AA 126 Result Comment: GFR Calc LAB L501.1255 ml/min Normal Estimated CRCL 87.45 LAB L501.1300 10-20 RATIO Normal BUN/CRE 16.1 LAB L501.2200 8.5-10 mg/dL Low .1 CA 8.4 LAB L501.5300 136-14 mmol/L Low 5 NA 129 LAB L501.5600 3.5-5. mmol/L Normal 1 K 4.3 LAB L501.5900 98-107 mmol/L Low CL 95 LAB L501.6100 21.0-3 mmol/L Normal 2.0 CO2 26.0 LAB L501.6200 5-15 Normal GAP 8 Performed By: #### L500.2500 #### [facility] [place], [address] INTERNAL MEDICINE Observed: 08/26/2017 Status: F Source: [place] OFFICE VISIT 2:55 PM [facility] REPOSITORY [facility] [address] [place] [address] OFFICE VISIT Date of Service: 08/23/17 MR#: [id number] Acct: [id number] Name: WALI HALL Rep #: [id number] : 1960 Provider: Andrés Helms MD Age/Sex: 57/F Location: [facility] Status: Signed Intake Vital Signs08/23/17 Height 5 ft 6 in Intake Visit Reasons: new pt visit./ER FU Chief Complaint: Behavioral Changes. Dye Beck Reel Operator Required: No Is patient in pain?: No Allergies No Known Allergies Allergy (Verified 08/16/17 13:35) Medications NK [NK] 08/16/17 [History Confirmed 08/20/17] PFSH Medical History TGA (transient global amnesia) (Acute) Hyponatremia (Acute) Social History Smoking Status: Former smoker HPI new pt visit./ER FU: Chief Complaint: Behavioral Changes. Details: WALI HALL, is a 57yo F who presents to the office today to establish care and as a follow up of recent hospitilization. Ms. Hall was in her stable state of health until just over 2 weeks ago when patient started having what appeared to be seizure-like activity. Initial episode was described as stiffening and staring. This episode was said to last for about a minute. Subsequent episode was about 6 days after initial episode on 16 August during this episode she seemed to have what appeared to be transient global amnesia. From her description she has found herself in a place where she could not remember how she got there or what she was doing there. After this episode she was taken to [facility] where she had extensive workup including MRI, CTA, EEG, Echo, EKG and routine blood work. The only abnormality detected was a mild - moderate hyponatremia at 124. She was also seen by the neurologist. She was discharged home with a sodium level of about 130. Most recent symptom was about 2 days ago when she again appeared to have a staring episode and amnesia. During this episode she was non communicative with her who had tried repeatedly even screamed with no response. She was again taken to the ER and BMP at that time showed a sodium of 126. Otherwise normal labs. She denies any recent weight loss, cough, shortness of breath or leg swelling. She has a greater than 97-fnbi-fiyv smoking history and quit about 5 days ago. She denies current use of illegal substance and states that she drinks about 4 cans of beer on the weekends. There is a positive family history of lung and brain cancer in her father, he was a chronic tobacco abuser also. ROS Const Constitutional: Positive for fatigue; no anorexia or night sweats Eyes Eyes: No blurry vision or visual disturbances ENT ENT: Positive for dizziness/vertigo; no abnormal hearing or ear pressure Resp Respiratory: No cough, chest congestion or shortness of breath Cardio Cardiology: No generalized swelling, chest pain with exertion or irregular heart rhythm Gastro GI: No change in stool character, constipation, diarrhea or abdominal pain Genitourinary-Female: Positive for urinary frequency (Chronic. No new changes.); no difficulty urinating, burning urination or painful urination Musc Musculoskeletal: No abnormal walking or loss of height Neuro Neurology: Positive for behavioral changes, dizziness and confusion; no visual disturbances, abnormal hearing or abnormal walking Psych Psychiatric: Positive for behavioral changes, Positive for confusion Endo Endocrine: Positive for fatigue Exam Const General: cooperative, comfortable, no acute distress Orientation: alert, awake, oriented x3 HENKS Head: atraumatic, normocephalic Ears: hearing grossly normal bilaterally Eyes General: appearance normal, both eyes and all related structures Visual Brush: normal visual brush by confrontation Pupils: PERRL Resp Effort AND Inspection: normal respiratory effort, able to speak in complete sentences Auscultation: Bilateral: Clear to Auscultation Cardio Rate: regular rate Rhythm: regular rhythm Heart Sounds: S1 normal, S2 normal GI Palpation: soft, no hepatosplenomegaly Neuro General: oriented x3, awake, alert, moves all extremities, CN's II-XI intact bilaterally Extrem General: no pedal edema Psych Mood: anxious mood Assessment AND Plan 1. Behavioral change R46.89 Plan Recent episodes of what appears to be seizure-like activity and amnesia. Workup done in the hospital with no obvious abnormality except for mild hyponatremia. On hospital discharge sodium level increased to 130 however 2 days ago repeat BMP with a sodium of 126. Behavioral changes are typically not noted at this level however, she is scheduled to follow-up with neurology in a couple weeks. Increase dietary intake of solutes and sodium. Advised to discontinue alcohol use. Repeat labs on Saturday. Follow-up with neurology. 2. Hyponatremia E87.1 Plan Persistent. Initial sodium level on presentation was 124, increased to 130 on discharge however repeat 2 days ago was 126. Patient denies excessive alcohol intake, she however states that she typically micturates every hour. This has been her norm. She is currently not on any diuretic or medication. All other electrolytes are within normal. She also admits to low sodium intake. She does not cook with salt and has typically watched her sodium intake. Increase sodium intake ( Just in daily meals ). No excess sodium. Urine and plasma osmolality ordered. Urine sodium also ordered. BMP on Saturday. Follow-up in 2 weeks. Orders Orders: 3. Tobacco abuse Z72.0 Plan She has a greater than 05-kosc-smgi smoking history. Has had no lung CA screening. Low-dose CAT scan ordered. Follow-up with results. This note was generated with [employer]ters[employer] software. It may contain incorrect words, spelling, and punctuation that were not noted in checking the note before signing. Orders Orders: Plan Detail Other Orders Orders: Follow Up 2 Weeks Coding Level of Care Code Off vis,est,level 4 Diagnoses Behavioral change R46.89 Hyponatremia E87.1 Tobacco abuse Z72.0 08/26/17 1455 <Electronically signed by Andrés Helms MD> Date Andrés Helms MD Cosigner Signature: Date (if applicable) CC: BASIC METABOLIC Collected: 08/26/2017 Status: F Source: [place] PROFILE (BMP) 10:22 AM [facility] REPOSITORY TYPE CODE TESTS RESULT OUT OF RANGE REFERENCE UNITS LAB L501.0100 70-110 mg/dL Normal GLU 106 LAB L501.1000 7-18 mg/dL Normal BUN 11 LAB L501.1100 0.55-1.02 mg/dL Normal 0.71 CREAT,SERUM Result Comment: The validity of the calculated GFR AND GFRAA in patients over 70 years has not been determined. Clinical correlation is essential. LAB L501.1110 >60 mL/min Normal EST GFR 89 Result Comment: Non- GFR Calc LAB L501.1115 >60 mL/min Normal EST GFR - AA 108 Result Comment: GFR Calc LAB L501.1300 10-20 RATIO Normal BUN/CRE 15.4 LAB L501.2200 8.5-10.1 mg/dL CA Normal 8.5 LAB L501.5300 136-145 mmol/L Low NA 129 LAB L501.5600 3.5-5.1 mmol/L K Normal 4.1 LAB L501.5900 98-107 mmol/L Low CL 93 LAB L501.6100 21.0-32.0 mmol/L Normal CO2 25.0 LAB L501.6200 5-15 Normal GAP 11 Performed By: #### L500.2500 #### [facility] [address] [place], [address] CREATININE, URINE Collected: 08/26/2017 Status: F Source: [place] (RANDOM) 10:22 AM [facility] REPOSITORY TYPE CODE TESTS RESULT OUT OF RANGE REFERENCE UNITS LAB L501.1200 NO RANGE EST. mg/dL Normal UR CREAT 48.60 Performed By: #### L501.1200, L501.5500, L501.7400, L501.7300 #### [facility] [address] [facility] [address] URINE SODIUM Collected: 08/26/2017 Status: F Source: [place] 10:22 AM [facility] REPOSITORY TYPE CODE TESTS RESULT OUT OF RANGE REFERENCE UNITS LAB L501.5500 Not Establ. mmol/L Normal UR NA 130 Performed By: #### L501.1200, L501.5500, L501.7400, L501.7300 #### [facility] [address] [facility] [address] OSMOLALITY, URINE Collected: 08/26/2017 Status: F Source: [place] 10:22 AM [facility] REPOSITORY TYPE CODE TESTS RESULT OUT OF RANGE REFERENCE UNITS LAB L501.7400 mOsm/KG Normal 496 OSMOLALITY,U R Result Comment: OSMOLALITY URINE REFERENCE INTERVALS 24-hour Urine 300 - 900 mOsm/kg Random Urine 50 - 1400 mOsm/kg After 12 Hr fluid restriction >850 mOsm/kg Performed By: #### L501.1200, L501.5500, L501.7400, L501.7300 #### [facility] [address] [place], [address] OSMOLALITY, SERUM Collected: 08/26/2017 Status: F Source: [place] 10:22 AM [facility] REPOSITORY TYPE CODE TESTS RESULT OUT OF RANGE REFERENCE UNITS LAB L501.7300 275-295 mOsm/KG Low 271 OSMOLALITY,S ER Performed By: #### L501.1200, L501.5500, L501.7400, L501.7300 #### [facility] [address] [place], [address] 12 LEAD ELECTROCARDIOGRAM Observed: 08/21/2017 Status: F Source: [place] 3:29 PM [facility] REPOSITORY [facility] Cardiovascular Services [address] [place] [address] 12 Lead EKG 08/16/17 1331 MR#: [id number] Acct: [id number] Name: WALI HALL Rep #: [id number] : 1960 57 From: Félix Taylor MD Attending Dr: Richie Bernardo DO Status: DIS IN Ordering Dr: Emily Thibodeaux DO Date: 08/16/17 Location: [facility] Sex: F C Admitted: 08/16/17 Test Reason : Blood Pressure : / mmHG Vent. Rate : 083 BPM Atrial Rate : 083 BPM P-R Int : 168 ms QRS Dur : 082 ms QT Int : 376 ms P-R-T Axes : 084 078 077 degrees QTc Int : 441 ms Normal sinus rhythm Right atrial enlargement Borderline ECG Confirmed by FÉLIX TAYLOR MD ([id number]), video news editor MARSHA CARROLL ([id number]) on 08/21/2017 3:28:40 PM Referred By: INES Confirmed By:FÉLIX TAYLOR MD 08/21/17 1528 Date Félix Taylor MD CC: No Primary Care Physician Signed EMERGENCY DEPARTMENT Observed: 08/20/2017 Status: F Source: [place] SUMMARY 8:29 PM [facility] REPOSITORY [facility] Medical Records Department [address] [place] [address] Emergency Department Summary 08/20/172020 MR#: [id number] Acct: [id number] Name: WALI HALL Rep #: [id number] : 1960 57 From: Satinder Hall MD PCP: Care Physician, No Primary Status: REG ER - ER Visit Summary Date of Service: 08/20/17 Chief Complaint: Altered level of consciousness and amnesia History of Present Illness: The patient is a 57 F who had similar presentation Saturday and was diagnosed with transient global amnesia. She underwent an extensive workup which included CT, CTA of head and neck and MRI of the brain. There is no history of head trauma last 72 hours. There is no history of seizure in the last 24 hours. There is no history of illicit drug use. She is a smoker 1 pack per day for many years. She denies headache. She denies ocular, visual auditory symptoms. Has trouble with speech or swallowing. She denies any cardiac respiratory symptoms. Denies any GI or symptoms. She denies any neurologic symptoms other than forgetfulness. Physical Examination: Thin pleasant 57-year-old woman whose blood pressure slightly elevated 140/79. She is not hypoxic. She is not febrile. Head is atraumatic normocephalic. Pupils are equal round reactive. Extraocular muscles are intact. TMs are pearly white with landmarks noted. Nares patent with no drainage. Posterior pharynx without erythema or exudate. Uvula is midline. There is no dysphonia or dysphasia. Trachea is midline. There is no stridor with auscultation of the neck. Heart is regular without murmur, gallop or rub. S1 and S2 are normal. Lungs are clear to auscultation with good movement of air bilaterally. Patient is alert and oriented 3. Motor is 5 over 5. Sensory is intact. DTRs are symmetric with no clonus or Babinski sign. Cranial 2 through 12 are intact. Cerebellar testing is normal. Test Results: Tests were needed. She was observed several times repeat neurologic exam remains normal. She is now able to recall 3 out of 3 objects. Emergency Department Course and Treatment: Observation since no testing is is needed to make diagnosis of transient global amnesia. Treatment Plan: Appropriate home-going instruction and information on TGA. states they were told that this does not recur. I informed him I recently completed a evidence-based review article with CME and it was documented that this can recur. I believe the incidents around 5.7%. Disposition: Discharged home in stable improved condition Impression: Transient global amnesia This note was generated with [employer] dictation software. It may contain incorrect words, spelling, and punctuation that were not noted in review of the chart prior to signing ED Disposition - Plan for ED Patient: Disposition: Home or Assisted Living Chief Complaint: Unresponsive Instructions: ED Altered Loc Referrals: Care Physician,Briana Primary [Primary Care Provider] - Andrés Helms MD [STAFF PHYSICIAN] - Keep Lazaro appointment What to do if you have Problems For any increased pain, shortness of breath, bleeding, nausea or vomiting, chest pain, or any unexpected problems, contact your Primary Care Provider. Call [facility] ([phone]) or report to the closest Emergency Room. Call 911 if necessary. 08/20/172028 <Electronically signed by Satinder Hall MD> Date Satinder Hall MD Cosigner Signature (If Indicated): Date CC: No Primary Care Physician BASIC METABOLIC Collected: 08/20/2017 Status: F Source: [place] PROFILE ([facility]) 4:55 PM [facility] REPOSITORY Order Comment: REDRAW. PREVIOUS SPECIMEN REJECTED DUE TO HEMOLYSIS. 08/20/17 Jaymie Ahumada. TYPE CODE TESTS RESULT OUT OF RANGE REFERENCE UNITS LAB L501.0100 70-110 mg/dL Normal GLU 91 LAB L501.1000 7-18 mg/dL Normal BUN 8 LAB L501.1100 0.55-1.02 mg/dL Normal 0.61 CREAT,SERUM Result Comment: The validity of the calculated GFR AND GFRAA in patients over 70 years has not been determined. Clinical correlation is essential. LAB L501.1110 >60 mL/min Normal EST GFR 106 Result Comment: Non- GFR Calc LAB L501.1115 >60 mL/min Normal EST GFR - AA 129 Result Comment: GFR Calc LAB L501.1255 ml/min Normal Estimated CRCL 92.96 LAB L501.1300 10-20 RATIO Normal BUN/CRE 13.1 LAB L501.2200 8.5-10 mg/dL Normal .1 CA 8.8 LAB L501.5300 136-14 mmol/L Low 5 NA 126 LAB L501.5600 3.5-5. mmol/L Normal 1 K 4.3 LAB L501.5900 98-107 mmol/L Low CL 93 LAB L501.6100 21.0-3 mmol/L Normal 2.0 CO2 27.0 LAB L501.6200 5-15 Normal GAP 6 Performed By: #### L500.2500 #### [facility] [address] [place], [address] URINALYSIS, COMPLETE Collected: 08/20/2017 Status: F Source: [place] 4:20 PM [facility] REPOSITORY Order Comment: Order Date: 08/20/17 How was Urine Obtained? CLEAN CATCH TYPE CODE TESTS RESULT OUT OF RANGE REFERENCE UNITS LAB L400.3000 Yellow COLOR Normal Yellow LAB L400.3050 Clear Normal CLARITY Clear LAB L400.3200 Normal mg/dl Normal GLUCOSE, UR Normal LAB L400.3300 Negative mg/dL Normal BILIRUBIN URINE Negative LAB L400.3400 Negative mg/dl Normal KETONE UR Negative LAB L400.3465 1.002-1.030 Normal SP.GR. DIPSTX 1.015 LAB L400.3550 5.0 - 8.0 pH UR Normal 6.5 LAB L400.3600 Negative mg/dl High PROT 30 DIPSTX LAB L400.3700 Normal mg/dl Normal UROBILI Normal LAB L400.3750 Negative Normal NITRITE UR Negative LAB L400.3780 Negative /ul High OCCULT BLOOD-UR 250 LAB L400.3800 Negative /ul High LEUK 25 ESTERASE LAB L400.4050 0-5 /hpf WBC Normal 0-5 SEEN LAB L400.4100 0-5 /hpf Normal RBC-UA 10-25 SEEN LAB L400.4150 5-10 /hpf SQUAM Normal EPI 0-5 SEEN LAB L400.4300 None Seen /hpf 0 Normal BACTERIA SEEN LAB L400.4350 <or=2+ /hpf 0 Normal MUCUS, URINE SEEN Performed By: #### L400.0001 #### [facility] [address] [place], [address] CBC W/DIFF, AUTOMATED Collected: 08/20/2017 Status: F Source: [place] 4:05 PM [facility] REPOSITORY TYPE CODE TESTS RESULT OUT OF RANGE REFERENCE UNITS LAB L100.1000 4.4-11.0 K/mm3 Normal WBC 5.9 LAB L100.1200 4.2-5.4 M/mm3 Low RBC 3.55 LAB L100.1300 12.0-15.0 g/dl Low HGB 11.7 LAB L100.1400 37-47 % Low HCT 35.1 LAB L100.1500 81-99 fL Normal MCV 98.9 LAB L100.1600 27.0-32.0 pg High MCH 33.0 LAB L100.1700 32-36 g/gl Normal MCHC 33.3 LAB L100.1810 11.6-14.6 % Normal RDW CV 14.3 LAB L100.1820 35.1-43.9 fl High RDW SD 44.9 LAB L100.1900 150-450 K/mm3 Normal PLT 313 LAB L100.2000 6.2-12.0 fl Normal MPV 9.4 LAB L100.2100 47-70 % Normal NEUT% 59.6 LAB L100.2200 19-41 % Normal LY% 24.8 LAB L100.2300 0-10 % High MONO% 11.6 LAB L100.2400 0-5 % Normal EO% 3.1 LAB L100.2500 0-1 % Normal BASO% 0.7 LAB L100.2550 0.0-0.9 % Normal IM GRAN % 0.200 Result Comment: IG% - Immature Granulocytes (promyelocytes, myelocytes and metamyelocytes) > 1% indicates that a LEFT SHIFT is Present. LAB L100.2620 2.0-7.7 X10 3/uL Normal Absolute Neut 3.5 LAB L100.2720 0.83-4.51 X10 3/ul Normal Absolute Lymph 1.46 Performed By: #### L100.0100 #### [facility] [address] [place], [address] DISCHARGE SUMMARY Observed: 08/17/2017 Status: F Source: [place] 4:50 PM [facility] REPOSITORY [facility] Medical Records Department [address] [place] [address] Discharge Summary 08/17/17 1604 MR#: [id number] Acct: [id number] Name: WALI HALL Rep #: [id number] : 1960 57 From: Uziel GÓMEZ PCP: Care Physician, No Primary Status: DIS IN Y Location: [place] [address] <Uziel Hernández - Last Filed: 08/17/17 16:04> Discharge Date and Diagnosis Date of Admission: 08/16/17 Date of Discharge: 08/17/17 - Primary Discharge Diagnosis Active and Suspected Problems TGA (transient global amnesia) (Acute) 2/2 hyponatremia Hyponatremia (Acute) improved with IV fluids Nicotine abuse Hospital Course and Treatment Imaging Results: MRI brain neg for acute change CTA head and neck negative CXR neg Echo-EF 55%,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 Date Richie Bernardo DO Cosigner Signature: Date (if applicable) CC: No Primary Care Physician; Richie Bernardo DO Signed EMERGENCY DEPARTMENT Observed: 08/16/2017 Status: F Source: [place] SUMMARY 4:49 PM [facility] REPOSITORY [facility] Medical Records Department [address] [place] [address] Emergency Department Summary 08/16/17 1645 MR#: [id number] Acct: [id number] Name: WALI HALL Rep #: [id number] : 1960 57 From: Emily Thibodeaux DO PCP: Care Physician, No Primary Status: REG ER - ER Visit Summary Date of Service: 08/16/17 Chief Complaint: [Confusion] History of Present Illness: The patient is a 57 F [resents to the emergency department chief complaint of confusion that occurred today. Patient woke up feeling fine and left the house. states that he later got a phone call from her stating that she did not know where she was and that she was [place]. Patient apparently had gotten a flat tire and was driving on the flat. The patient has no recollection of how she got to where she was. also gives history of an episode 2 or 3 days ago were patient just staring out in the space and could not speak for several minutes although patient was aware of her surroundings. Patient also has been complaining of some dizziness intermittently over the last couple of days. Patient has no history of stroke. She denies any illicit drug use. Patient states that she would sometimes drink on weekends but has not been drinking recently.] Physical Examination: [HEENT-PERRLA, EOMI. Cranial nerves II through XII grossly intact. TMs clear. Mucous membranes moist. No adenopathy. Cardiovascular-regular rate and rhythm without murmur or ectopy Lungs-clear to auscultation, chest wall stable without crepitus or subcu emphysema Abdomen-normoactive bowel sounds, soft, nontender, no rebound or rigidity, no peritoneal signs. Neuro exam-finger to nose and heel castle testing within normal limits, negative Romberg, negative pronator drift, fundi benign. NIH stroke scale 0 Extremities-intact 4, normal range of motion, normal pulses, atraumatic] Test Results: [EKG obtained on arrival shows sinus rhythm with a ventricular rate of 83 bpm with right atrial enlargement. CBC with differential showed a white count 7.9, hemoglobin 12.7, hematocrit 36, platelets 337. Chemistry showed a sodium of 125, potassium 4.9, chloride 96, CO2 20, glucose 77, BUN 8, creatinine 0.59. Troponin was less than 0.02. CTAs of the head and neck were essentially unremarkable. Chest x-ray obtained was read by myself as some hyperinflation otherwise nothing acute.] Emergency Department Course and Treatment: [] Treatment Plan: [Patient will be admitted for further workup and evaluation of her symptomatology]. I am concerned about possibility for TIA Disposition: [Admit] Impression: [Confusion-rule out TIA] Hyponatremia This note was generated with [employer] dictation software. It may contain incorrect words, spelling, and punctuation that were not noted in review of the chart prior to signing ED Disposition - Plan for ED Patient: Chief Complaint: Mental Status Change Referrals: Care Physician,No Primary [Primary Care Provider] - What to do if you have Problems For any increased pain, shortness of breath, bleeding, nausea or vomiting, chest pain, or any unexpected problems, contact your Primary Care Provider. Call [email or web address] ([phone]) or report to the closest Emergency Room. Call 911 if necessary. 08/16/17 2457 <Electronically signed by Emily Thibodeaux DO> Date Emily Thibodeaux DO Cosigner Signature (If Indicated): Date CC: No Primary Care Physician CHEST 1 VIEW Observed: 08/16/2017 Status: F Source: [place] (PORTABLE) 4:32 PM [facility] REPOSITORY [facility] Imaging Services [address] [place] [address] Chest 1 View (Portable) MR#: [id number] Acct: [id number] Name: WALI HALL Rep #: [id number] : 1960 F 57 From: Fantasma Ponce MD PCP: Care Physician, No Primary Status: REG ER Study: Chest 1 View (Portable) Date of Exam: 08/16/17 Exam# [id number] Ordering Dr: Emily Thibodeaux DO STUDY: X-RAY CHEST REASON FOR EXAM: Female, 57 years old. Configuration. TECHNIQUE: Single AP portable upright view of the chest. COMPARISON: None. FINDINGS: There are bilateral breast implants with suggestion of mild capsular calcifications on the right, and minimal calcifications on the left. The lungs are clear and expanded. There is no demonstrated pleural abnormality. Normal size heart. Normal mediastinum and jens. Normal visualized pulmonary arteries. Normal visualized aortic arch and descending thoracic aorta. There is mild left-sided depression of the superior T7 vertebral endplate, and a 4-5 degree dextroscoliosis at that level. Normal visualized ribs, clavicles, and shoulders. There is no demonstrated abnormality of the visualized soft tissue structures of the upper abdomen. RAD/Chest 1 View (Portable) IMPRESSION: 1. No acute cardiopulmonary disease. 2. Mild left-sided depression of the superior T7 vertebral endplate, likely old. Electronically Signed: Freddy Ponce MD at 18:02 EST , Service support , CC: No Primary Care Physician; Emily Thibodeaux DO Coal Gasification Technician: Signed URINALYSIS, COMPLETE Collected: 08/16/2017 Status: F Source: [place] 4:05 PM [facility] REPOSITORY Order Comment: Order Date: 08/16/17 Has pt arrived? Y How was Urine Obtained? CLEAN CATCH TYPE CODE TESTS RESULT OUT OF RANGE REFERENCE UNITS LAB L400.3000 Yellow COLOR Normal Yellow LAB L400.3050 Clear Normal CLARITY Clear LAB L400.3200 Normal mg/dl Normal GLUCOSE, UR Normal LAB L400.3300 Negative mg/dL Normal BILIRUBIN URINE Negative LAB L400.3400 Negative mg/dl Normal KETONE UR Negative LAB L400.3465 1.002-1.030 Normal SP.GR. DIPSTX 1.010 LAB L400.3550 5.0 - 8.0 pH UR Normal 7.0 LAB L400.3600 Negative mg/dl PROT Normal DIPSTX Negative LAB L400.3700 Normal mg/dl Normal UROBILI Normal LAB L400.3750 Negative Normal NITRITE UR Negative LAB L400.3780 Negative /ul High OCCULT BLOOD-UR 150 LAB L400.3800 Negative /ul LEUK Normal ESTERASE Negative LAB L400.4050 0-5 /hpf WBC 0 Normal SEEN LAB L400.4100 0-5 /hpf Normal RBC-UA 0-5 SEEN LAB L400.4150 5-10 /hpf SQUAM Normal EPI 0-5 SEEN LAB L400.4300 None Seen /hpf 0 Normal BACTERIA SEEN LAB L400.4350 <or=2+ /hpf 0 Normal MUCUS, URINE SEEN Performed By: #### L400.0001 #### [facility] [address] [place], [address] BASIC METABOLIC Collected: 08/16/2017 Status: F Source: [place] PROFILE (BMP) 2:28 PM [facility] REPOSITORY Order Comment: REDRAW. PREVIOUS SPECIMEN REJECTED DUE TO SPECIMEN BEING HEMOLYZED. 08/16/171408 Terry Alva. 'TROP' Serial specimen #1, #2, #3, or #4: 1 TYPE CODE TESTS RESULT OUT OF RANGE REFERENCE UNITS LAB L501.0100 70-110 mg/dL Normal GLU 77 LAB L501.1000 7-18 mg/dL Normal BUN 8 LAB L501.1100 0.55-1.02 mg/dL Normal 0.59 CREAT,SERUM Result Comment: The validity of the calculated GFR AND GFRAA in patients over 70 years has not been determined. Clinical correlation is essential. LAB L501.1110 >60 mL/min Normal EST GFR 111 Result Comment: Non- GFR Calc LAB L501.1115 >60 mL/min Normal EST GFR - AA 134 Result Comment: GFR Calc LAB L501.1255 ml/min Normal Estimated CRCL 99.84 LAB L501.1300 10-20 RATIO Normal BUN/CRE 13.5 LAB L501.2200 8.5-10 mg/dL Low .1 CA 8.1 LAB L501.5300 136-14 mmol/L Low 5 NA 125 LAB L501.5600 3.5-5. mmol/L Normal 1 K 4.9 LAB L501.5900 98-107 mmol/L Low CL 96 LAB L501.6100 21.0-3 mmol/L Low 2.0 CO2 20.0 LAB L501.6200 5-15 Normal GAP 9 Performed By: #### L500.2500, L501.4010 #### [facility] [address] [place], [place], [address] TROPONIN-I Collected: 08/16/2017 Status: F Source: [place] 2:28 PM [facility] REPOSITORY Order Comment: REDRAW. PREVIOUS SPECIMEN REJECTED DUE TO SPECIMEN BEING HEMOLYZED. 08/16/171408 Terry Alva. 'TROP' Serial specimen #1, #2, #3, or #4: 1 TYPE CODE TESTS RESULT OUT OF RANGE REFERENCE UNITS LAB L501.4010 <0.06 ng/mL Normal < 0.02 TROPONIN-I Result Comment: TROPONIN-I EXPECTED VALUES <0.05 NEGATIVE 0.06 - 0.59 AT RISK OF DC > OR = 0.60 SUGGEST DC Performed By: #### L500.2500, L501.4010 #### [facility] [address] [place], [address] BEDSIDE GLUCOSE Collected: 08/16/2017 Status: F Source: [place] 1:54 PM [facility] REPOSITORY TYPE CODE TESTS RESULT OUT OF RANGE REFERENCE UNITS LAB L501.080 70-110 mg/dL Normal BEDSIDE GLU 97 Result Comment: MANAGEMENT OF PATIENT CARE PER NURSING PROTOCOL Performed By: #### L501.080 #### [facility] Point of Care [address] [place] [address] CTA HEAD W/WO Observed: 08/16/2017 Status: F Source: [place] CONTRAST 1:42 PM [facility] REPOSITORY [facility] Imaging Services [address] [place] [address] CTA Head W/WO Contrast MR#: [id number] Acct: [id number] Name: WALI HALL Rep #: [id number] : 1960 F 57 From: Fantasma Ponce MD PCP: Care Physician, No Primary Status: REG ER Study: CTA Head W/WO Contrast Date of Exam: 08/16/17 Exam# [id number] Ordering Dr: Emily Thibodeaux DO STUDY: CTA OF THE BRAIN REASON FOR EXAM: Female, 57 years old. TIA. RADIATION DOSAGE (If Supplied By Facility): CTDIvol = ( 29.85 ) mGy, DLP = ( 1405.94 ) mGycm TECHNIQUE: CT angiography was performed with a multi-detector CT scanner. Data acquisition was obtained from the skull base through the vertex following intravenous administration of 100 ml of Isovue-370. MIP images were reconstructed from the axial data set. Post-processing of the angiographic images was performed, with multiplanar reformation and 3D reconstruction. Individualized dose optimization techniques were used for this CT. COMPARISON: None. FINDINGS: Normal bilateral petrous carotid arteries. There is calcified plaque formation of the right cavernous carotid artery, without a cross-sectional luminal stenosis. There is calcified plaque formation of the left cavernous carotid artery, without a cross-sectional luminal stenosis. Normal A1 segment of the right anterior cerebral artery. Normal A1 segment of the left anterior cerebral artery. Normal intact anterior communicating artery (ACOM). Normal bilateral A2 segments of the anterior cerebral arteries. Normal M1 and M2 segments of the right middle cerebral artery, with a normal M1 bifurcation. Normal M1 and M2 segments of the left middle cerebral artery, with a normal M1 bifurcation. Normal right posterior communicating artery (PCOM). There is non-visualization of the left posterior communicating artery (PCOM). Normal bilateral vertebral arteries. Normal basilar artery with a normal basilar bifurcation. The visualized bilateral superior cerebellar (SCA) arteries are normal. Mildly hypoplastic P1 segment of the right posterior cerebral artery. Normal P2 and visualized P3 segments of the right posterior cerebral artery. Normal P1, P2 and visualized P3 segments of the left posterior cerebral artery. There is no demonstrated aneurysm of the apache of [place]. There is no demonstrated abnormality of the visualized brain. There is moderate mucoperiosteal thickening of the right maxillary sinus and bilateral sphenoid sinuses. Incidental note of bilateral pauline bullosa of the middle turbinates. IMPRESSION: 1. No demonstrated intracranial aneurysm or hemodynamically significant intracranial arterial stenosis. 2. Moderate right maxillary and bilateral sphenoid sinusitis. Electronically Signed: Freddy Ponce MD at 16:15 EST , Service support , STUDY: CTA NECK WITH CONTRAST REASON FOR EXAM: Female, 57 years old. TIA RADIATION DOSAGE (If Supplied By Facility): CTDIvol = ( 100 ) mGy, DLP = ( Isovue-370 ) mGycm TECHNIQUE: CT angiography with multi-detector data acquisition was performed from the aortic arch to the skull base following intravenous administration of ml of contrast. MIP images were reconstructed from the axial data set. Post-processing of the angiographic images was performed, with multiplanar reformation and 3D reconstruction. Individualized dose optimization techniques were used for this CT. COMPARISON: None. FINDINGS: There are centrilobular emphysematous changes in the visualized lung brush. There are multilevel degenerative changes of the cervical spine. Moderate mucoperiosteal thickening incidentally noted in the right maxillary sinus. AORTIC ARCH: Normal visualized aortic arch. Normal anatomic origins of the brachiocephalic, left common carotid, and left subclavian arteries. There is dense atherosclerotic calcification with approximately 50% diameter narrowing in the main trunk of the left subclavian artery. RIGHT CAROTID ARTERIES: Normal right common carotid artery (CCA). There is moderate atherosclerotic plaque formation of the right carotid bulb. There is calcified atherosclerotic plaque formation of the origin of the right internal carotid artery with less than 50% cross sectional diameter stenosis. Normal visualized cervical portion of the right internal carotid artery. Normal origin of the right external carotid artery (ECA). LEFT CAROTID ARTERIES: There is an ossific atherosclerotic plaque formation of the common carotid artery origin, but without a hemodynamically significant stenosis. There is moderate atherosclerotic plaque formation of the carotid bulb. There is mild atherosclerotic plaque formation of the origin of the left internal carotid artery with less than 50% cross sectional diameter stenosis. Normal visualized cervical portion of the left internal carotid artery. Normal origin of the left external carotid artery (ECA). VERTEBRAL ARTERIES: Normal bilateral vertebral arteries. CT/CTA Head W/WO Contrast IMPRESSION: 1. Moderate calcified atherosclerotic plaque at the bilateral carotid artery bifurcations. No demonstrated hemodynamically significant stenosis of either internal carotid artery, however. 2. Patent bilateral vertebral arteries. 3. Centrilobular emphysematous disease in the visualized lung brush. 4. Degenerative changes of the cervical spine. 5. Moderate, chronic right maxillary sinusitis. Electronically Signed: Freddy Ponce MD at 16:22 EST , Service support , CC: No Primary Care Physician; Emily Thibodeaux DO Coal Gasification Technician: Signed CTA NECK W/WO Observed: 08/16/2017 Status: F Source: [place] CONTRAST 1:42 PM [facility] REPOSITORY [facility] Imaging Services [address] [place] [address] CTA Neck W/WO Contrast MR#: [id number] Acct: [id number] Name: WALI HALL Rep #: [id number] : 1960 F 57 From: Fantasma Ponce MD PCP: Care Physician, No Primary Status: REG ER Study: CTA Neck W/WO Contrast Date of Exam: 08/16/17 Exam# [id number] Ordering Dr: Emily Thibodeaux DO STUDY: CTA OF THE BRAIN REASON FOR EXAM: Female, 57 years old. TIA. RADIATION DOSAGE (If Supplied By Facility): CTDIvol = ( 29.85 ) mGy, DLP = ( 1405.94 ) mGycm TECHNIQUE: CT angiography was performed with a multi-detector CT scanner. Data acquisition was obtained from the skull base through the vertex following intravenous administration of 100 ml of Isovue-370. MIP images were reconstructed from the axial data set. Post-processing of the angiographic images was performed, with multiplanar reformation and 3D reconstruction. Individualized dose optimization techniques were used for this CT. COMPARISON: None. FINDINGS: Normal bilateral petrous carotid arteries. There is calcified plaque formation of the right cavernous carotid artery, without a cross-sectional luminal stenosis. There is calcified plaque formation of the left cavernous carotid artery, without a cross-sectional luminal stenosis. Normal A1 segment of the right anterior cerebral artery. Normal A1 segment of the left anterior cerebral artery. Normal intact anterior communicating artery (ACOM). Normal bilateral A2 segments of the anterior cerebral arteries. Normal M1 and M2 segments of the right middle cerebral artery, with a normal M1 bifurcation. Normal M1 and M2 segments of the left middle cerebral artery, with a normal M1 bifurcation. Normal right posterior communicating artery (PCOM). There is non-visualization of the left posterior communicating artery (PCOM). Normal bilateral vertebral arteries. Normal basilar artery with a normal basilar bifurcation. The visualized bilateral superior cerebellar (SCA) arteries are normal. Mildly hypoplastic P1 segment of the right posterior cerebral artery. Normal P2 and visualized P3 segments of the right posterior cerebral artery. Normal P1, P2 and visualized P3 segments of the left posterior cerebral artery. There is no demonstrated aneurysm of the apache of [place]. There is no demonstrated abnormality of the visualized brain. There is moderate mucoperiosteal thickening of the right maxillary sinus and bilateral sphenoid sinuses. Incidental note of bilateral pauline bullosa of the middle turbinates. IMPRESSION: 1. No demonstrated intracranial aneurysm or hemodynamically significant intracranial arterial stenosis. 2. Moderate right maxillary and bilateral sphenoid sinusitis. Electronically Signed: Freddy Ponce MD at 16:15 EST , Service support , STUDY: CTA NECK WITH CONTRAST REASON FOR EXAM: Female, 57 years old. TIA RADIATION DOSAGE (If Supplied By Facility): CTDIvol = ( 100 ) mGy, DLP = ( Isovue-370 ) mGycm TECHNIQUE: CT angiography with multi-detector data acquisition was performed from the aortic arch to the skull base following intravenous administration of ml of contrast. MIP images were reconstructed from the axial data set. Post-processing of the angiographic images was performed, with multiplanar reformation and 3D reconstruction. Individualized dose optimization techniques were used for this CT. COMPARISON: None. FINDINGS: There are centrilobular emphysematous changes in the visualized lung brush. There are multilevel degenerative changes of the cervical spine. Moderate mucoperiosteal thickening incidentally noted in the right maxillary sinus. AORTIC ARCH: Normal visualized aortic arch. Normal anatomic origins of the brachiocephalic, left common carotid, and left subclavian arteries. There is dense atherosclerotic calcification with approximately 50% diameter narrowing in the main trunk of the left subclavian artery. RIGHT CAROTID ARTERIES: Normal right common carotid artery (CCA). There is moderate atherosclerotic plaque formation of the right carotid bulb. There is calcified atherosclerotic plaque formation of the origin of the right internal carotid artery with less than 50% cross sectional diameter stenosis. Normal visualized cervical portion of the right internal carotid artery. Normal origin of the right external carotid artery (ECA). LEFT CAROTID ARTERIES: There is an ossific atherosclerotic plaque formation of the common carotid artery origin, but without a hemodynamically significant stenosis. There is moderate atherosclerotic plaque formation of the carotid bulb. There is mild atherosclerotic plaque formation of the origin of the left internal carotid artery with less than 50% cross sectional diameter stenosis. Normal visualized cervical portion of the left internal carotid artery. Normal origin of the left external carotid artery (ECA). VERTEBRAL ARTERIES: Normal bilateral vertebral arteries. CT/CTA Neck W/WO Contrast IMPRESSION: 1. Moderate calcified atherosclerotic plaque at the bilateral carotid artery bifurcations. No demonstrated hemodynamically significant stenosis of either internal carotid artery, however. 2. Patent bilateral vertebral arteries. 3. Centrilobular emphysematous disease in the visualized lung brush. 4. Degenerative changes of the cervical spine. 5. Moderate, chronic right maxillary sinusitis. Electronically Signed: Freddy Ponce MD at 16:22 EST , Service support , CC: No Primary Care Physician; Emily Thibodeaux DO Coal Gasification Technician: Signed CBC W/DIFF, AUTOMATED Collected: 08/16/2017 Status: F Source: [place] 1:40 PM [facility] REPOSITORY TYPE CODE TESTS RESULT OUT OF RANGE REFERENCE UNITS LAB L100.1000 4.4-11.0 K/mm3 Normal WBC 7.9 LAB L100.1200 4.2-5.4 M/mm3 Low RBC 3.75 LAB L100.1300 12.0-15.0 g/dl Normal HGB 12.7 LAB L100.1400 37-47 % Low HCT 36.0 LAB L100.1500 81-99 fL Normal MCV 96.0 LAB L100.1600 27.0-32.0 pg High MCH 33.9 LAB L100.1700 32-36 g/gl Normal MCHC 35.3 LAB L100.1810 11.6-14.6 % Normal RDW CV 12.2 LAB L100.1820 35.1-43.9 fl Normal RDW SD 41.5 LAB L100.1900 150-450 K/mm3 Normal PLT 337 LAB L100.2000 6.2-12.0 fl Normal MPV 8.8 LAB L100.2100 47-70 % High NEUT% 76.5 LAB L100.2200 19-41 % Low LY% 12.3 LAB L100.2300 0-10 % Normal MONO% 9.3 LAB L100.2400 0-5 % Normal EO% 1.1 LAB L100.2500 0-1 % Normal BASO% 0.4 LAB L100.2550 0.0-0.9 % Normal IM GRAN % 0.400 Result Comment: IG% - Immature Granulocytes (promyelocytes, myelocytes and metamyelocytes) > 1% indicates that a LEFT SHIFT is Present. LAB L100.2620 2.0-7.7 X10 3/uL Normal Absolute Neut 6.0 LAB L100.2720 0.83-4.51 X10 3/ul Normal Absolute Lymph 0.97 Performed By: #### L100.0100 #### [facility] [address] [place], [address] ALLERGIES ALLERGIES DATE TYPE / CODE NAME / CODE REACTION SEVERITY SOURCE 08/04/2018 Drug No Known Unknown [place] Allergy/4160 Allergies/F00 Hospital 72994(SNOMED 1509567(RXNOR Repository CT) M) ENCOUNTERS ENCOUNTERS ADMIT/DISCHARGE ACCOUNT NUMBER ADMITTING ENCOUNTER LOCATION SOURCE CLASS 08/04/2018 [id number] Ambulatory [facility] ding:ONC Repository 08/04/2018 [id number] Ambulatory BMSBuilding: [place] [facility]..[facility] Repository 07/28/2018 [id number] Ambulatory BMSBuilding: [place] BMS.[facility] Repository 07/20/2018/07/20/20 [id number] Emergency [address] ding:ED Repository 07/14/2018 [id number] Ambulatory BMSBuilding: [place] [facility]MS.[facility] Repository 07/07/2018 [id number] Ambulatory BMSBuilding: [place] BMS.[facility] Repository 06/30/2018 [id number] [facility] [place] 06/23/2018/11/05 [id number] Ambulatory BMSBuilding: [place] 18 BMS.[facility] Repository 06/16/2018 [id number] Ambulatory BMSBuilding: [place] [facility]MS.[facility] Repository 06/09/2018 [id number] Ambulatory BMSBuilding: [place] BMS.[facility] Repository 06/02/2018 [id number] Ambulatory BMSBuilding: [place] BMS.[facility] Repository 05/22/2018 [id number] Ambulatory BMSBuilding: [place] BMS.[facility] Repository 05/19/2018 [id number] Ambulatory [facility] ding:CT Repository 04/24/2018 [id number] Ambulatory BMSBuilding: [place] BMS.[facility] Repository 04/14/2018 [id number] Ambulatory BMSBuilding: [place] BMS.[facility] Repository 04/03/2018 [id number] Ambulatory [facility] ding:MRI Repository 03/27/2018 [id number] Ambulatory BMSBuilding: [place] [facility]..[facility] Repository 03/21/2018/03/21/20 [id number] Ambulatory BMSBuilding: [place] 18 BMS.[facility] Repository 03/04/2018 [id number] Ambulatory [facility] ding:CT Repository 02/17/2018 [id number] Ambulatory BMSBuilding: [place] BMS.[facility] Repository 01/28/2018 [id number] Ambulatory BMSBuilding: [place] [facility]MS.[facility] Repository 01/14/2018 [id number] Ambulatory [facility] ding:CT Repository 12/30/2017 [id number] Ambulatory BMSBuilding: [place] [facility]..[facility] Repository 12/20/2017/12/21/19 [id number] Ambulatory BMSBuilding: [place] 18 BMS.[facility] Repository 12/09/2017 [id number] Ambulatory BMSBuilding: [place] BMS.[facility] Repository 12/04/2017/12/06/19 [id number] [place], Inpatient [place] 18 [address] [facility] ding:PCURoom Repository : [id number]: 1 12/04/2017 [id number] [place], Ambulatory BMSBuilding: [place] BMS.[facility] Repository 12/04/2017 [id number] [place], Ambulatory BMSBuilding: [place] BMS.[facility] Repository 12/03/2017 [id number] Ambulatory [facility] ding:CT Repository 11/25/2017 [id number] Ambulatory BMSBuilding: [place] [facility]MS.[facility] Repository 11/18/2017 [id number] Ambulatory BMSBuilding: [place] [facility]MS.[facility] Repository 11/11/2017 [id number] Ambulatory BMSBuilding: [place] [facility] Repository 10/28/2017 [id number] Ambulatory BMSBuilding: [place] [facility] Repository 10/21/2017 [id number] Ambulatory BMSBuilding: [place] [facility] Repository 10/18/2017/10/19/19 [id number] Ambulatory BMSBuilding: [place] 18 BMS.[facility] Repository 10/18/2017/10/19/19 [id number] Ambulatory BMSBuilding: [place] 18 BMS.[facility] Repository 10/17/2017/10/18/19 [id number] Emergency [address] ding:ED Repository 10/14/2017 [id number] Ambulatory BMSBuilding: [place] [facility] Repository 10/10/2017/10/10/19 [id number] Ambulatory [address] ding:SDC Repository 10/10/2017 [id number] Ambulatory BMSBuilding: [place] BMS.CF.[facility] Repository 10/08/2017/10/08/19 [id number] Ambulatory BMSBuilding: [place] 18 BMS.[facility] Repository 10/07/2017 [id number] Ambulatory BMSBuilding: [place] [facility] Repository 10/07/2017 [id number] Ambulatory [facility] ding:NM Repository 10/02/2017 [id number] Ambulatory BMSBuilding: [place] [facility] Repository 10/02/2017 [id number] Ambulatory BMSBuilding: [place] [facility] Repository 09/27/2017/09/27/19 [id number] Ambulatory [address] ding:SDCRoom Repository : AC12 09/27/2017 [id number] Ambulatory BMSBuilding: [place] BMS.[facility] Repository 09/23/2017 [id number] Ambulatory BMSBuilding: [place] BMS.[facility] Repository 09/20/2017/09/20/19 [id number] Ambulatory BMSBuilding: [place] 18 BMS.[facility] Repository 09/19/2017 [id number] Ambulatory [facility] ding:LAB.FUT Repository URE 09/12/2017/09/13/19 [id number] [place], Inpatient [place] ding:PCURoom Repository : HFE978Kxt: 1 09/12/2017 [id number] [place], Ambulatory B[place]Building: [place] BMS.[facility] Repository 09/12/2017 [id number] [place], Ambulatory BMSBuilding: [place] [facility] Repository 09/12/2017 [id number] [place], Ambulatory BMSBuilding: [place] BMS.CF.[facility] Repository 09/12/2017 [id number] [place], Ambulatory BMSBuilding: [place] BMS.[facility] Repository 09/12/2017/09/13/19 [id number] Ambulatory BMSBuilding: [place] 18 [facility] Repository 09/12/2017/09/13/19 [id number] Ambulatory BMSBuilding: [place] 18 [facility] Repository 09/12/2017 [id number] Ambulatory [facility] ding:MTLAB Repository 09/09/2017/09/09/19 [id number] Ambulatory BMSBuilding: [place] 18 BMS.[facility] Repository 09/06/2017/09/06/19 [id number] Ambulatory BMSBuilding: [place] 18 BMS.[facility] Repository 09/06/2017/09/06/19 [id number] Ambulatory AULTMANBuild [place] 18 ing:formerly [facility] Repository 09/03/2017 [id number] [facility] 09/03/2017 [id number] Ambulatory [facility] ding:BI Repository 08/29/2017/08/29/19 [id number] Ambulatory BMSBuilding: [place] 18 BMS.[facility] Repository 08/29/2017 [id number] Ambulatory BMSBuilding: [place] BMS.[facility] Repository 08/28/2017/08/29/19 [id number] Emergency [place] ding:ED Repository 08/26/2017 [id number] Ambulatory [facility] ding:MTLAB Repository 08/23/2017/08/23/19 [id number] Ambulatory BMSBuilding: [place] 18 BMS.[facility] Repository 08/20/2017/08/20/19 [id number] Emergency [place] ding:ED Repository 08/16/2017/08/17/20 [id number] [place], Inpatient [place] [address] [place]ie Encounter [facility] ding:PCURoom Repository : [id number]: 1 08/16/2017 [id number] Ambulatory BMSBuilding: [place] BMS.[facility] Repository 08/16/2017/08/17/20 [id number] Ambulatory BMSBuilding: [place] 17 [facility] Repository 08/16/2017 [id number] Ambulatory BMSBuilding: [place] BMS.[facility] Repository PAYERS PAYERS ENCOUNTER GUARANTOR PAYER SUBSCRIBER SOURCE 08/04/2018 JACINTO Primary JACINTO [place] [address] Insurance:MAIRACARERaul GUARDADOMANDOB: [facility] Number: [id number] Women[facility] [address]Ptm: [id number] Repository e Date:7211-86-28IL () [address] [address]VC: 08/04/2018 Secondary NOT GIVENUNK [place] Insurance:SELF PAY [facility] Number: Effective Repository Date:2017-09-30 08/04/2018 JACINTO Primary [address]TOEVE [address] Insurance:AULTCAREPol HUFFMANDOB: [facility] Number: [id number] Women's Hospital [address]Lcj: [id number] Repository e Date:4656-26-13MN () [address] [place] [address]EN: 08/04/2018 Secondary NOT GIVENUNK [place] Insurance:SELF PAY [facility] Number: Effective Repository Date:2018-08-04 07/28/2018 JACINTO Primary [address]TOEVE [address] Insurance:AULTCAREPol HUFFMANDOB: [facility] Number: [id number] Women's Hospital [address]Tag: [id number] Repository e Date:8969-59-11UC () [address] [place] [address]YL: 07/28/2018 Secondary NOT GIVENUNK [place] Insurance:SELF PAY [facility] Number: Effective Repository Date:2018-07-28 07/20/2018 JACINTO Primary JACINTO [place] [address] Insurance:AULTCAREPol HUFFMANDOB: [facility] icy Number: [id number] Women's Hospital [id number]: [id number] Repository e Date:1503-33-77UV () [address] [address]LG: 07/20/2018 Secondary NOT GIVENUNK [place] Insurance:SELF PAY [facility] Number: Effective Repository Date:2018-07-20 07/14/2018 JACINTO Primary [address]TO[address]E [address] Insurance:AULTCAREPol HUFFMANDOB: [facility], icy Number: [id number] Women's Hospital [address]Odp: [id number] Repository e Date:7951-21-72XZ () [address] [place] [address]DJ: 07/14/2018 Secondary NOT GIVENUNK [place] Insurance:SELF PAY [facility] Number: Effective Repository Date:2018-07-14 07/07/2018 JACINTO Primary JACINTO Madeleineethan [address] Insurance:MAIRACAREPol GAVINOOB: [facility], icy Number: [id number] Women's Hospital [address]Nbg: [id number] Repository e Date:5746-92-50JW () [address] [address]KR: 07/07/2018 Secondary NOT GIVENUNK [place] Insurance:SELF PAY [facility] Number: Effective Repository Date:2018-07-07 06/30/2018 JACINTO Primary JACINTO [place] [address] Insurance:Marco A MANCIAOB: [facility], icy Number: [id number] Women's Hospital [address]Ghd: [id number] Repository e Date:3034-96-51KE () [address] [address]ON: 06/30/2018 Secondary NOT GIVENUNK [place] Insurance:SELF PAY [facility] Number: Effective Repository Date:2018-06-30 06/23/2018 JACINTO Primary JACINTO [place] [address] Insurance:ELIANPol GAVINOOB: [facility], icy Number: [id number] Women's Hospital [address]Pqc: [id number] Repository e Date:4427-20-64LA () [address], [place] [address]YY: 06/23/2018 Secondary NOT GIVENUNK [place] Insurance:SELF PAY [facility] Number: Effective Repository Date:2018-06-23 06/16/2018 JACINTO Primary WALI [address] Insurance:AULTCAREPol HUFFMANDOB: [facility], icy Number: [id number] Women's Hospital [address]Epd: [id number] Repository e Date:2781-01-06HA () [address] [place] [address]FV: 06/16/2018 Secondary NOT GIVENUNK [place] Insurance:SELF PAY [facility] Number: Effective Repository Date:2018-06-16 06/09/2018 JACINTO Primary WALI [address] Insurance:AULTCAREPol HUFFMANDOB: [facility], icy Number: [id number] Women's Hospital [address]Sjx: [id number] Repository e Date:2940-28-43ZC () [address] [place] [address]UO: 06/09/2018 Secondary NOT GIVENUNK [place] Insurance:SELF PAY [facility] Number: Effective Repository Date:2018-06-09 06/02/2018 JACINTO Primary JACINTO [address] Insurance:AULTCAREPol HUFFMANDOB: [facility], icy Number: [id number] Women's Hospital [address]2697Gbf: [id number] Repository e Date:0904-68-13EL () [address] [place] [address]WG: 06/02/2018 Secondary NOT GIVENUNK [place] Insurance:SELF PAY [facility] Number: Effective Repository Date:2018-06-02 05/22/2018 JACINTO Primary JACINTO [address] Insurance:AULTCAREPol HUSHUKRIMANDOB: [facility], icy Number: [id number] Women's Hospital 6[address]99Vsz: [id number] Repository e Date:2079-75-38GG () [address] [place] [address]EK: 05/22/2018 Secondary NOT GIVENUNK [place] Insurance:SELF PAY [facility] Number: Effective Repository Date:2018-05-22 05/19/2018 JACINTO Primary JACINTO Madeleineethan [address] Insurance:AULTCAREPol HUFFMANDOB: [facility] icy Number: [id number] Women's Hospital [address]Sou: [id number] Repository e Date:3759-83-34AJ () [address] [place] [address]AC: 05/19/2018 Secondary NOT GIVENUNK [place] Insurance:SELF PAY [facility] Number: Effective Repository Date:2018-04-24 04/24/2018 JACINTO Primary JACINTO Madeleineethan [address] Insurance:AULTCAREPol HUFFMANDOB: [facility] Number: [id number] Women's Hospital [address]Zhv: [id number] Repository e Date:9881-39-32OL () [address] [address]EA: 04/24/2018 Secondary NOT GIVENUNK [place] Insurance:SELF PAY [facility] Number: Effective Repository Date:2018-04-24 04/14/2018 JACINTO Primary JACINTO Madeleine [address] Insurance:AULTCAREPol HUFFMANDOB: [facility] icy Number: [id number] Women's Hospital 18890Vcu: [id number] Repository e Date:4720-14-98SR () [address] [address]SE: 04/14/2018 Secondary NOT GIVENUNK [place] Insurance:SELF PAY [facility] Number: Effective Repository Date:2018-04-14 04/03/2018 JACINTO Primary JACINTO [place] [id number] [address] Insurance:AULTCAREPol GAVINOOB: [facility], icy Number: [id number] Women's Hospital [address]Rwc: [id number] Repository e Date:7838-93-25BL () [address] [address]PH: 04/03/2018 Secondary NOT GIVENUNK [place] Insurance:SELF PAY [facility] Number: Effective Repository Date:2018-03-27 03/27/2018 JACINTO Primary JACINTO Madeleineethan [address] Insurance:MAIRACAREPol GAVINOOB: [facility] icy Number: [id number] Women's Hospital [address]41Oje: [id number] Repository e Date:0581-54-88BY () [address] [place] [address]UK: 03/27/2018 Secondary NOT GIVENUNK [place] Insurance:SELF PAY [facility] Number: Effective Repository Date:2018-03-27 03/21/2018 JACINTO Primary JACINTO Madeleineethan [id number] Insurance:MAIRACAREPol GAVINOOB: [facility], icy Number: [id number] Women's Hospital [address]Rrh: [id number] Repository e Date:5801-62-56TI () [address] [place] [address]EJ: 03/21/2018 Secondary NOT GIVENUNK [place] Insurance:SELF PAY [facility] Number: Effective Repository Date:2018-03-21 03/04/2018 JACINTO Primary JACINTO [place] [id number] Insurance:MAIRACAREPol GAVINOOB: [facility], icy Number: [id number] Women's Hospital [address]99Nwr: [id number] Repository e Date:7395-27-85SD () [address] [address]YL: 03/04/2018 Secondary NOT GIVENUNK [place] Insurance:SELF PAY [facility] Number: Effective Repository Date:2018-02-17 02/17/2018 JACINTO Primary JACINTO [place] [address] Insurance:AULTCAREPol HUFFMANDOB: [facility], icy Number: [id number] Women's Hospital [address]30Nax: [id number] Repository e Date:5599-06-73NL () [address] [address]SV: 02/17/2018 Secondary NOT GIVENUNK [place] Insurance:SELF PAY [facility] Number: Effective Repository Date:2018-02-17 01/28/2018 JACINTO Primary JACINTO [place] [address] Insurance:AULTCAREPol HUFFMANDOB: [facility], icy Number: [id number] Women's Hospital [address]807Mzn: [id number] Repository e Date:5920-77-74LT () [address] [address]MS: 01/28/2018 Secondary NOT GIVENUNK [place] Insurance:SELF PAY [facility] Number: Effective Repository Date:2018-01-28 01/14/2018 JACINTO Primary JACINTO Made[place] [address] Insurance:AULTCAREPol HUFFBRIGHTON HOSPITALOB: [facility], icy Number: [id number] Women's Hospital [address]304Mvd: [id number] Repository Date:0594-68-34YR [address], [place] [address]BZ: 01/14/2018 Secondary NOT GIVENUNK [place] Insurance:SELF PAY [facility] Number: Effective Repository Date:2017-12-30 12/30/2017 JACINTO Primary JACINTO [place] [address] Insurance:AULTCAREPol HUFFMANDOB: [facility], icy Number: [id number] Women's Hospital [address]28Pyb: [id number] Repository Date:7127-74-42VN [address] () [address] [address]GL: 12/30/2017 Secondary NOT GIVENUNK [place] Insurance:SELF PAY [facility] Number: Effective Repository Date:2017-12-30 12/20/2017 JACINTO Primary JACINTO Madeleineethan [address] Insurance:AULTCAREPol HUFFMANDOB: [facility] icy Number: [id number] Women's Hospital [address]478Mzb: [id number] Repository Date:7724-87-85CI [address] () [address], [place] [address]ML: 12/20/2017 Secondary NOT GIVENUNK [place] Insurance:SELF PAY [facility] Number: Effective Repository Date:2017-12-20 12/09/2017 JACINTO Primary JACINTO [place] [address] Insurance:AULTCAREPol HUFFMANDOB: [facility] ic Number: [id number] Women's Hospital 13298Pat: [id number] Repository Date:2595-58-66VX [address] () [address] [address]GC: 12/09/2017 Secondary NOT GIVENUNK [place] Insurance:SELF PAY [facility] Number: Effective Repository Date:2017-12-09 12/04/2017 JACINTO Primary JACINTO [place] [address] Insurance:AULTCAREPol HUFFMANDOB: [facility] ic Number: [id number] Women's Hospital [address]Fvq: [id number] Repository e Date:3733-63-47HC () [address] [address]CZ: 12/04/2017 Secondary NOT GIVENUNK [place] Insurance:SELF PAY [facility] Number: Effective Repository Date:2017-12-04 12/04/2017 JACINTO Primary JACINTO [place] [id number] [address] Insurance:AULTCAREPol DEBBYMANDOB: [facility], icy Number: [id number] Women's Hospital 09917Yjh: [id number] Repository e Date:0806-93-16GI () [address] [address]NM: 12/04/2017 Secondary NOT GIVENUNK [place] Insurance:SELF PAY [facility] Number: Effective Repository Date:2017-12-04 12/04/2017 JACINTO Primary JACINTO [place] [id number] Insurance:AULTCAREPol DEBBYMANDOB: [facility] icy Number: [id number] Women's Hospital [address]4835Lkn: [id number] Repository e Date:8653-28-19WL () [address] [address]NS: 12/04/2017 Secondary NOT GIVENUNK [place] Insurance:SELF PAY [facility] Number: Effective Repository Date:2017-12-04 12/03/2017 JACINTO Primary JACINTO [place] [id number] S Insurance:MAIRACAREPol GAVINOOB: [facility], icy Number: [id number] Women's Hospital 38796Cyn: [id number] Repository e Date:2474-19-46WT () [address] [place] [address]CA: 12/03/2017 Secondary NOT GIVENUNK [place] Insurance:SELF PAY [facility] Number: Effective Repository Date:2017-11-25 11/25/2017 JACINTO Primary JACINTO [place] [id number] S Insurance:MAIRACAREPol [facility]BBYBR[facility]OSPITALOB: [facility], icy Number: [id number] Women's Hospital [address]13Yly: [id number] Repository e Date:2324-80-89HW () [address] [address]WR: 11/25/2017 Secondary NOT GIVENUNK [place] Insurance:SELF PAY [facility] Number: Effective Repository Date:2017-11-25 11/18/2017 JACINTO Primary JACINTO [place] [address] Insurance:AULTCAREPol HUFFMANDOB: [facility], icy Number: [id number] Women's Hospital [address]259Gis: [id number] Repository Date:4052-62-30TA [address] () [address] [address]UJ: 11/18/2017 Secondary NOT GIVENUNK [place] Insurance:SELF PAY [facility] Number: Effective Repository Date:2017-11-18 11/11/2017 JACINTO Primary JACINTO [place] [address] Insurance:AULTCAREPol HUFFMANDOB: [facility] icy Number: [id number] Women's Hospital 66695Zuy: [id number] Repository Date:3697-67-27EP [address] () [address] [address]JW: 11/11/2017 Secondary NOT GIVENUNK [place] Insurance:SELF PAY [facility] Number: Effective Repository Date:2017-11-11 10/28/2017 JACINTO Primary JACINTO [place] [address] Insurance:AULTCAREPol HUFFMANDOB: [facility], icy Number: [id number] Women's Hospital 04603Zoa: [id number] Repository Date:5830-32-59NF [address] () [address] [address]GX: 10/28/2017 Secondary NOT GIVENUNK [place] Insurance:SELF PAY [facility] Number: Effective Repository Date:2017-10-28 10/21/2017 JACINTO Primary JACINTOEVE [address] Insurance:AULTCAREPol HUFFMANDOB: [facility], icy Number: [id number] Women's Hospital [address]6923Ifu: [id number] Repository Date:2301-76-10AO [address] ) [address], [place] [address]HI: 10/21/2017 Secondary NOT GIVENUNK [place] Insurance:SELF PAY [facility] Number: Effective Repository Date:2017-10-21 10/18/2017 JACINTO Primary JACINTO [place] [address] Insurance:AULTCAREPol HUFFMANDOB: [facility] Number: [id number] Women's Hospital 27044Cot: [id number] Repository e Date:2139-69-38IJ () [address] [address]JI: 10/18/2017 Secondary NOT GIVENUNK [place] Insurance:SELF PAY [facility] Number: Effective Repository Date:2017-10-11 10/18/2017 JACINTO Primary JACINTO [place] [address] Insurance:AULTCAREPol HUFFMANDOB: [facility] ic Number: [id number] Women's Hospital 37424Cae: [id number] Repository e Date:3871-09-81BS () [address] [address]EN: 10/18/2017 Secondary NOT GIVENUNK [place] Insurance:SELF PAY [facility] Number: Effective Repository Date:2017-09-20 10/17/2017 JACINTO Primary JACINTO [place] [address] Insurance:AULTCAREPol HUFFMANDOB: [facility] icy Number: [id number] Women's Hospital 41570Oxw: [id number] Repository e Date:3374-47-63NB () [address] [address]CL: 10/17/2017 Secondary NOT GIVENUNK [place] Insurance:SELF PAY [facility] Hospital Number: Effective Repository Date:2017-10-17 10/14/2017 JACINTO Primary JACINTO [place] [address] Insurance:AULTCAREPol DEBBYMANDOB: [facility], icy Number: [id number] Women's Hospital 96027Pqg: [id number] Repository Date:7009-01-51UA [address] ) [address], [place] [address]GZ: 10/14/2017 Secondary NOT GIVENUNK [place] Insurance:SELF PAY [facility] Number: Effective Repository Date:2017-10-14 10/10/2017 JACINTO Primary JACINTO [place] [id number] S Insurance:AULTCAREPol DEBBYMANDOB: [facility], icy Number: [id number] Women's Hospital [address]1225Eke: [id number] Repository e Date:0960-55-10HF () [address] [address]YM: 10/10/2017 Secondary NOT GIVENUNK [place] Insurance:SELF PAY [facility] Number: Effective Repository Date:2017-10-08 10/10/2017 JACINTO Primary JACINTO Madeleineethan [address] Insurance:MAIRACAREPol GAVINOOB: [facility], icy Number: [id number] Women's Hospital 70836Ndm: [id number] Repository e Date:3059-43-53AM () [address] [address]BI: 10/10/2017 Secondary NOT GIVENUNK [place] Insurance:SELF PAY [facility] Number: Effective Repository Date:2017-10-10 10/08/2017 JACINTO Primary JACINTO Madeleine [id number] Insurance:AUCAREPol DEBBYMANDOB: [facility], icy Number: [id number] Women's Hospital 22294Boi: [id number] Repository Date:2702-90-78CR [address] () [address], [place] [address]DA: 10/08/2017 Secondary NOT GIVENUNK [place] Insurance:SELF PAY [facility] Number: Effective Repository Date:2017-10-07 10/07/2017 JACINTO Primary JACINTOEVE [id number] Insurance:AULTCAREPol HUFFMANDOB: [facility], icy Number: [id number] Women's Hospital 19998Ocq: [id number] Repository Date:0697-30-28QP [address] ) [address], [place] [address]YS: 10/07/2017 Secondary NOT GIVENUNK [place] Insurance:SELF PAY [facility] Number: Effective Repository Date:2017-10-07 10/07/2017 JACINTO Primary JACINTOEVE [id number] Insurance:AULTCAREPol HUFFMANDOB: [facility], icy Number: [id number] Women's Hospital 70698Lkw: [id number] Repository Date:3665-28-96WT [address] () [address], [place] [address]RW: 10/07/2017 Secondary NOT GIVENUNK [place] Insurance:SELF PAY [facility] Number: Effective Repository Date:2017-10-02 10/02/2017 JACINTO Primary JACINTOEVE [address] Insurance:AULTCAREPol HUFFMANDOB: [facility], icy Number: [id number] Women's Hospital 28240Pnu: [id number] Repository e Date:1590-91-23SZ () [address] [address]BM: 10/02/2017 Secondary NOT GIVENUNK [place] Insurance:SELF PAY [facility] Hospital Number: Effective Repository Date:2017-10-02 10/02/2017 JACINTO Primary JACINTOEVE [address] Insurance:AULTCAREPol HUFFMANDOB: [facility], icy Number: [id number] [address]Fhq: [id number] Repository Date:3986-02-91EK [address] [address]JM: 10/02/2017 Secondary NOT GIVENUNK [place] Insurance:SELF PAY [facility] Number: Effective Repository Date:2017-10-02 09/27/2017 JACINTO Primary JACINTOEVE [address] Insurance:AULTCAREPol HUFFMANDOB: [facility] Number: [id number] Women's Hospital [address]38Rhl: [id number] Repository Date:8673-20-24CM [address] () [address] [address]ET: 09/27/2017 Secondary NOT GIVENUNK [place] Insurance:SELF PAY [facility] Number: Effective Repository Date:2017-09-10 09/27/2017 JACINTO Primary JACINTOEVE [address] Insurance:AULTCAREPol HUFFMANDOB: [facility] Number: [id number] Women's Hospital [address]1855Pit: [id number] Repository e Date:8781-34-26BG () [address] [address]UN: 09/27/2017 Secondary NOT GIVENUNK [place] Insurance:SELF PAY [facility] Number: Effective Repository Date:2017-09-27 09/23/2017 AJCINTO Primary JACINTO [place] [id number] Insurance:AULTCAREPol HUFFMANDOB: [facility] icy Number: [id number] Women's Hospital [address]25Pag: [id number] Repository Date:1412-93-81ZA [address] [address]II: 09/23/2017 Secondary NOT GIVENUNK [place] Insurance:SELF PAY [facility] Number: Effective Repository Date:2017-09-06 09/20/2017 JACINTO Primary JACINTO Made[place] [id number] Insurance:AULTCAREPol HUFFMANDOB: [facility], icy Number: [id number] Women's Hospital [address]47Rqh: [id number] Repository e Date:0926-88-07HN () [address] [address]YM: 09/20/2017 Secondary NOT GIVENUNK [place] Insurance:SELF PAY [facility] Number: Effective Repository Date:2017-09-16 09/19/2017 JACINTO Primary JACINTO [place] [id number] [address] Insurance:AULTCAREPol DEBBYMANDOB: [facility], icy Number: [id number] Women's Hospital [address]262Coi: [id number] Repository e Date:4465-16-38CS () [address] [address]NJ: 09/19/2017 Secondary NOT GIVENUNK [place] Insurance:SELF PAY [facility] Number: Effective Repository Date:2017-09-17 09/12/2017 JACINTO Primary JACINTO [place] [id number] S Insurance:DELORESLTCAREPol DEBBYBRIGHTON HOSPITALOB: [facility], icy Number: [id number] Women's Hospital [address]78Piy: [id number] Repository e Date:3971-36-20VC () [address], [place] [address]DI: 09/12/2017 Secondary NOT GIVENUNK [place] Insurance:SELF PAY [facility] Number: Effective Repository Date:2017-09-12 09/12/2017 JACINTO Primary JACINTO [place] [id number] S Insurance:AULTCAREPol DEBBYBR[facility]ON [facility]OSPITALOB: [facility], icy Number: [id number] Women's Hospital [address]9538Enc: [id number] Repository e Date:2207-15-18FV () [address] [address]TQ: 09/12/2017 Secondary NOT GIVENUNK [place] Insurance:SELF PAY [facility] Number: Effective Repository Date:2017-09-12 09/12/2017 JACINTO Primary JACINTO Made[place] [id number] Insurance:AULTCAREPol HUFFMANDOB: [facility], icy Number: [id number] Women's Hospital [address]397Aqv: [id number] Repository e Date:8827-57-03MO () [address] [place] [address]KF: 09/12/2017 Secondary NOT GIVENUNK [place] Insurance:SELF PAY [facility] Number: Effective Repository Date:2017-09-12 09/12/2017 JACINTO Primary JACINTO Made[place] [id number] Insurance:AULTCAREPol HUFFMANDOB: [facility], icy Number: [id number] Women's Hospital [address]1555Yvy: [id number] Repository e Date:4976-68-05VZ () [address] [place] [address]IX: 09/12/2017 Secondary NOT GIVENUNK [place] Insurance:SELF PAY [facility] Number: Effective Repository Date:2017-09-12 09/12/2017 JACINTO Primary JACINTO [place] [id number] Insurance:AULTCAREPol HUFFMANDOB: [facility], icy Number: [id number] Women's Hospital [address]Hwy: [id number] Repository e Date:3365-48-66VE () [address] [address]WV: 09/12/2017 Secondary NOT GIVENUNK [place] Insurance:SELF PAY [facility] Hospital Number: Effective Repository Date:2017-09-12 09/12/2017 JACINTO Primary JACINTOEVE [address] Insurance:AULTCAREPol HUFFMANDOB: [facility], icy Number: [id number] [address]Mbu: [id number] Repository e Date:7219-02-26DW () [address] [address]FH: 09/12/2017 Secondary NOT GIVENUNK [place] Insurance:SELF PAY [facility] Number: Effective Repository Date:2017-09-12 09/12/2017 JACINTO Primary JACINTO [place] [address]ALL[address] Insurance:AULTCAREPol HUFFMANDOB: [facility] Number: [id number] Women's Hospital [address]127Xul: [id number] Repository e Date:5058-36-90ZQ () [address] [address]MI: 09/12/2017 Secondary NOT GIVENUNK [place] Insurance:SELF PAY [facility] Number: Effective Repository Date:2017-09-12 09/12/2017 JACINTO Primary JACINTO [place] [address]ALL149 [address] Insurance:AULTCAREPol HUFFMANDOB: [facility] ic Number: [id number] Women's Hospital [address]661Ukq: [id number] Repository Date:2224-99-50DN [address] [address]VA: 09/12/2017 Secondary NOT GIVENUNK [place] Insurance:SELF PAY [facility] Number: Effective Repository Date:2017-09-12 09/09/2017 JACINTO Primary JACINTO [place] [id number] Insurance:AULTCAREPol HUFFMANDOB: [facility] icy Number: [id number] Women's Hospital [address]Ezn: [id number] Repository e Date:7321-65-16JO () [address] [address]FZ: 09/09/2017 Secondary NOT GIVENUNK [place] Insurance:SELF PAY [facility] Number: Effective Repository Date:2017-08-30 09/06/2017 JACINTO Primary JACINTO Madeleineethan [address] Insurance:AULTCAREPol HUFFMANDOB: [facility], icy Number: [id number] Women's Hospital [address]18Adn: [id number] Repository e Date:3248-33-58RJ () [address] [place] [address]XZ: 09/06/2017 Secondary NOT GIVENUNK [place] Insurance:SELF PAY [facility] Hospital Number: Effective Repository Date:2017-08-23 09/06/2017 [facility]: [facility] M18Vruzpc Number: [id number] Repository [facility] [id number] [place], [place] e Date:2017-08-19 - [place], [place] [address]Sgv: [phone] 1985-51-17Rxgg [address]Fin: () Name:[employer]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 [phone] [place] [address] ()Tel: [phone]: () [phone] 09/03/2017 WALI Primary [facility] [id number] S Insurance:AULTCAREPol [facility]BBYBR[facility]OSPITALOB: [facility], icy Number: [id number] Women's Hospital [address]Dvw: [id number] Repository [phone] e Date:0704-51-63PY -4 () [address] [place] [address]EF: 09/03/2017 Secondary NOT GIVENUNK [place] Insurance:SELF PAY [facility] Number: Effective Repository Date:2017-08-27 09/03/2017 JACINTO Primary JACINTO [place] [id number] S Insurance:AULTCAREPol [facility]: [facility] icy Number: [id number] Women's Hospital [address]882Evb: [id number] Repository Date:0162-72-53PS BOX (HP) [address] [place] [address]VL: 09/03/2017 Secondary NOT GIVENUNK [place] Insurance:SELF PAY [facility] Number: Effective Repository Date:2017-09-03 08/29/2017 JACINTO Primary JACINTO [place] [id number] Insurance:AULTCAREPol HUFFMANDOB: [facility] icy Number: [id number] Women's Hospital [address]Wrq: [id number] Repository e Date:9005-92-53AS (HP) [address], [place] [address]XQ: 08/29/2017 Secondary NOT GIVENUNK [place] Insurance:SELF PAY [facility] Number: Effective Repository Date:2017-08-29 08/29/2017 JACINTO Primary JACINTO [place] [id number] Insurance:AULTCAREPol HUFFMANDOB: [facility] Number: [id number] Women's Hospital [address]Pim: [id number] Repository Date:0428-89-53BH [address] [address]CC: 08/29/2017 Secondary NOT GIVENUNK [place] Insurance:SELF PAY [facility] Number: Effective Repository Date:2017-08-29 08/28/2017 JACINTO Primary JACINTO [place] [id number] Insurance:AULTCAREPol HUFFMANDOB: [facility] icy Number: [id number] Women's Hospital [address]Yyq: [id number] Repository Date:5672-06-61MH [address], [place] [address]LY: 08/28/2017 Secondary NOT GIVENUNK [place] Insurance:SELF PAY [facility] Number: Effective Repository Date:2017-08-28 08/26/2017 WALI Primary JACINTO [place] [id number] Insurance:AULTCAREPol HUSHUKRIBRIGHTON HOSPITALOB: [facility], icy Number: [id number] Women's Hospital [address]Fzp: [id number] Repository e Date:[id number] () [address] [address]ZF: 08/26/2017 Secondary NOT GIVENUNK [place] Insurance:SELF PAY [facility] Number: Effective Repository Date:2017-08-26 08/23/2017 WALI [address] Insurance:AULTCAREPol HUFFMANDOB: [facility] Number: [id number] Women's Hospital [address]Thw: [id number] Repository e Date:7682-19-92MI () [address] [place] [id number]: 08/23/2017 Secondary NOT GIVENUNK [place] Insurance:SELF PAY [facility] Number: Effective Repository Date:2017-08-20 08/20/2017 WALI [address] Insurance:AULTCAREPol HUFFMANDOB: [facility] Number: [id number] Women's Hospital [address]Pvs: [id number] Repository e Date:1237-49-60OO () [address] [place] [id number]: 08/20/2017 Secondary NOT GIVENUNK [place] Insurance:SELF PAY [facility] Number: Effective Repository Date:2017-08-20 08/16/2017 WALI [address] Insurance:ANTHEM DEBBYMANDOB: [facility] [id number] Women's Hospital [address]Cdf: Number: Repository [id number] () Date:9076-68-66ZK [address], [place] [address]DY: 08/16/2017 Secondary NOT GIVENUNK [place] Insurance:SELF PAY [facility] Number: Effective Repository Date:2017-08-16 08/16/2017 WALI [address] Insurance:GAGANDEEP STEEN: [facility] [id number] Women's Hospital [address]Vsf: Number: Repository [phone] [id number] (HP) Date:0935-58-15BE [address], [place] [address]LC: 08/16/2017 Secondary NOT GIVENUNK [place] Insurance:SELF PAY [facility] Number: Effective Repository Date:2017-08-16 08/16/2017 WALI [address] Insurance:GAGANDEEP MANCIAOB: [facility] [id number] Women's Hospital [address]Dnc: Number: Repository [phone] [id number] (HP) Date:5671-21-60EK [address], [place] [address]GB: 08/16/2017 Secondary NOT GIVENUNK [place] Insurance:SELF PAY [facility] Number: Effective Repository Date:2017-08-16 08/16/2017 WALI [address] Insurance:GAGANDEEP MANCIAOB: [facility] [id number] [address]Bmi: Number: Repository [id number] (HP) Date:7979-97-93OC [address], [place] [address]LD: 08/16/2017 Secondary NOT GIVENUNK [place] Insurance:SELF PAY [facility] Number: Effective Repository Date:2017-08-16
== END 2018-07-20 21:30 | disposition left against medical advice (07) ==
PROVIDERS: Emergency Provider Emergency Medicine; Family Provider Internal Medicine; PCP Internal Medicine
DX: R50.9 Fever, unspecified (principal); R05 Cough; Z79.899 Other long term (current) drug therapy; Z85.118 Personal history of other malignant neoplasm of bronchus and lung; Z53.21 Procedure and treatment not carried out due to patient leaving prior to being seen by health care provider; Z87.891 Personal history of nicotine dependence
CPT/HCPCS: 36591; 71046; 80053; 81001; 83605; 85025; 85610; 85730; 87040; 87086; 87088; 87804; 93005; 96360; 96361; 99283; J7030; A4216

== ENCOUNTER → 2018-08-21 07:16 | Outpatient (CLI) | payer OTHER, SELFPAY ==
[2018-04-14 08:57] VITALS: BMI 26.5
[2018-07-28 09:52] VITALS: BMI 28.5
[2018-08-13 09:04] VITALS: BMI 28.6
--- NOTE | 2018-08-21 07:22 | CT_ITS ---
STUDY: CT ABDOMEN WITH CONTRAST REASON FOR EXAM: Female, 58 years old. Restaging, chemotherapy, right lung cancer, emphysema. RADIATION DOSAGE (If Supplied By Facility): CTDIvol = ( 14.03 ) mGy, DLP = ( 1073.61 ) mGycm TECHNIQUE: Transaxial images were obtained post I.V. administration of 100 ml of Isovue 300 contrast, and without oral contrast. Sagittal and coronal images were reconstructed. Individualized dose optimization techniques were used for this CT. COMPARISON: CT chest 08/21/2017, CT abdomen and pelvis 05/19/2018, 03/04/2018, 01/14/2018. FINDINGS: Please see chest CT dictation same date for chest details. Body wall soft tissues: No acute process. Osseous structures: No acute process. Mild to moderate low lumbar spondylosis with mild foraminal narrowing due to disc bulging and facet hypertrophy at several levels between L2 and L5. Mild scoliosis. Hepatobiliary: Normal. Pancreas: Normal. Spleen: Punctate calcifications consistent with old granulomatous disease. Adrenal glands: Normal. Urogenital: Normal kidneys, collecting systems, ureters. Retroperitoneum: No mass or lymphadenopathy. Vascular: Mild atherosclerosis. Stomach: Normal. Small bowel and mesentery: Evaluated portions are normal. Large bowel: Evaluated portions are normal. Free fluid or free air: None. CT/Abdomen WITH IV Contrast IMPRESSION: No acute abdominal process is evident. No evidence of abdominal metastatic disease. Electronically Signed: Nate Graham MD at 11:04 EST Tel , Service support ,
--- NOTE | 2018-08-21 07:22 | CT_ITS ---
STUDY: CT CHEST WITH CONTRAST REASON FOR EXAM: Female, 58 years old. Restaging, chemotherapy, right lung cancer. Emphysema. RADIATION DOSAGE (If Supplied By Facility): CTDIvol = ( 14.03 ) mGy, DLP = ( 1073.61 ) mGycm TECHNIQUE: Transaxial imaging was performed following intravenous administration of 100 ml of Isovue 300 contrast material. Coronal and sagittal 2-D MPR Individualized dose optimization techniques were used for this CT. COMPARISON: CT chest, abdomen and pelvis 05/19/2018, 03/04/2018, 01/14/2018. FINDINGS: Supraclavicular: Normal. Thoracic body wall soft tissues: No acute process. Right Mediport catheter with tip at SVC atrial junction. Capsular calcifications of saline breast implants without evidence of rupture. Retropectoral position. Upper abdomen: Limited evaluation, no acute process. Osseous structures: Kyphoscoliosis, mild thoracic spondylosis. No lytic or blastic lesions. Mediastinum: Normal esophagus. Small mediastinal lymph nodes some of which contain calcifications consistent with old granulomatous disease. Subcarinal lymph node anterior to the esophagus measuring approximately 13 x 9 mm has diminished in size compared to prior imaging. No apparent hilar lymphadenopathy. Cardiovascular: Normal cardiac size without pericardial effusion. No visible coronary calcifications. Nondilated aorta with minimal atherosclerosis. Nondilated central pulmonary arteries. Lungs: Patchy and partially confluent groundglass opacities are present in the right upper lobe anterior segment. These were not visible from the prior study of 05/19/2018. Subsegmental distribution. Right lower lobe posterior basilar segment pulmonary nodule, image 66, greatest dimension 8 mm. This has increased in size compared to prior imaging of 01/14/2018 but remains stable since imaging of 05/19/2018. A few tiny pulmonary nodules and small parenchymal reticular opacities in the left lung are not substantially changed. There is a new small subsegmental focus of mild groundglass opacity in the left lower lobe lateral basilar distribution which was not present on most recent prior imaging. Background centrilobular emphysema. CT/Chest WITH Contrast IMPRESSION: Ground glass opacity seen in the left lower lobe, and in the right upper lobe anterior segment were not present on the prior study of 05/19/2018. Does the patient have any acute or recent pneumonia? Stable pulmonary nodules. No lymphadenopathy. Electronically Signed: Nate Graham MD at 13:21 EST Tel , Service support ,
== END ==
PROVIDERS: Family Provider Internal Medicine; PCP Internal Medicine; Referring Provider Internal Medicine Hematology & Oncology; Visit Provider Internal Medicine Hematology & Oncology
DX: C34.90 Malignant neoplasm of unspecified part of unspecified bronchus or lung (principal); C77.9 Secondary and unspecified malignant neoplasm of lymph node, unspecified; D64.9 Anemia, unspecified; R91.8 Other nonspecific abnormal finding of lung field; Z79.899 Other long term (current) drug therapy
CPT/HCPCS: 71260; 74160; Q9967; A4216

== ENCOUNTER → 2018-10-27 07:22 | Outpatient (CLI) | payer OTHER, SELFPAY ==
[2018-04-14 08:57] VITALS: BMI 26.5
[2018-10-20 09:00] VITALS: BMI 28.6
--- NOTE | 2018-10-27 07:28 | CT_ITS ---
HISTORY: RESTAGING SMALL CELL LUNG CA TECHNIQUE: Helically acquired images were obtained of the chest following IV contrast. A radiation dose optimization technique was used for this scan. IV Contrast dosage and agent: 100 cc Isovue-300 COMPARISON: 08/21/18 CXR FINDINGS: # of images incl. paperwork: 761 Oval in shape 8 mm in greatest dimension nodule in the posterior, basilar segment of the right lower lobe series 6 image 58 not significantly changed. The areas of patchy groundglass attenuation in the right upper lobe seen on the previous study have almost completely resolved. Scattered tiny left-sided nodules are not significantly changed. As before, moderate emphysema with bilateral bronchial wall thickening and scattered calcified pulmonary granulomas are again demonstrated. Right-sided power port unchanged. Calcified mediastinal and right hilar lymph nodes and mildly prominent subcarinal lymph nodes are unchanged. Bilateral breast implants again demonstrated. No aggressive osseous lesions. Mild anterior wedging of mid thoracic vertebral bodies unchanged. CT/Chest WITH Contrast IMPRESSION: No concerning interval change. Persistent 8 mm right lower lobe pulmonary nodule. Emphysema. Individualized dose optimization techniques were used for this CT. at 0841 Reported and signed by: West Thomas MD Electronically Signed: West Thomas, at 8:40 EDT Tel , Service support ,
--- NOTE | 2018-10-27 07:28 | CT_ITS ---
STUDY: CT ABDOMEN WITH CONTRAST REASON FOR EXAM: Female, 58 years old. Restaging for small cell lung carcinoma. RADIATION DOSAGE (If Supplied By Facility): CTDIvol = ( 11.75 ) mGy, DLP = ( 363.90 ) mGycm TECHNIQUE: Transaxial images were obtained post I.V. administration of Isovue 300 100 IV/Oral, and oral contrast. Sagittal and coronal images were reconstructed. Individualized dose optimization techniques were used for this CT. COMPARISON: CT abdomen and pelvis 08/21/2018. FINDINGS: The visualized lung bases are unremarkable. The visualized portions of the heart are within normal limits. There are partially visualized bilateral breast implants, the right breast implant demonstrates peripheral calcification. Normal liver. Normal gallbladder and extrahepatic biliary system. Scattered punctate calcifications in the spleen may be due to prior granulomatous disease. Normal pancreas. Normal bilateral adrenal glands. Normal right kidney. Normal left kidney. Normal visualized stomach. Normal small intestine. Normal colon. The appendix is visualized and appears normal. There is calcified and noncalcified aortic atherosclerotic disease. Normal inferior vena cava. Normal retroperitoneum. Normal abdominal wall. Normal osseous structures. No lytic or blastic osseous lesion. CT/Abdomen WITH IV Contrast IMPRESSION: No evidence of abdominal metastases. Chronic findings are described above. Electronically Signed: Clive Henson, at 15:07 EDT Tel , Service support ,
== END ==
PROVIDERS: Family Provider Internal Medicine; PCP Internal Medicine; Referring Provider Internal Medicine Hematology & Oncology; Visit Provider Internal Medicine Hematology & Oncology
DX: C34.90 Malignant neoplasm of unspecified part of unspecified bronchus or lung (principal); C77.9 Secondary and unspecified malignant neoplasm of lymph node, unspecified; Z79.899 Other long term (current) drug therapy
CPT/HCPCS: 71260; 74160; Q9967

== ENCOUNTER → 2019-02-04 10:43 | Outpatient (CLI) | payer OTHER, SELFPAY ==
[2018-04-14 08:57] VITALS: BMI 26.5
[2019-02-04 09:51] VITALS: BMI 29.4
--- NOTE | 2019-02-04 10:52 | VDLE_ITS ---
Reason For Study: R/O DVT RIGHT LEFT GSV is normal. GSV is normal. CFV is compressible, spontaneous, phasic, CFV is compressible, spontaneous, phasic, competent and demonstrates normal competent, and demonstrates normal augmentation. augmentation. FV is compressible, spontaneous, phasic, FV is compressible, spontaneous, phasic, competent and demonstrates normal competent and demonstrates normal augmentation. augmentation. POP V is compressible, spontaneous, phasic, POP V is compressible, spontaneous, phasic, competent and demonstrates normal competent and demonstrates normal augmentation. augmentation. T/P Trunk is compressible. T/P Trunk is compressible. PTV is compressible. PTV is compressible. RT PerV is compressible. LT PerV is compressible. Procedure Exam performed in department. A preliminary report was called and/or faxed to DR HUGGINS. Interpretation Summary Deep veins of the lower extremities are bilaterally patent and compressible segmentally. There is no evidence of deep vein thrombosis on either side. Valvular competence appears intact within the proximal deep venous systems bilaterally. The greater saphenous veins appear bilaterally patent and compressible segmentally. Ordering Physician: Gage Huggins Referring Physician: Gage Huggins Performed By: Diane Gonzalez, EMERY, RVT
== END ==
PROVIDERS: Family Provider Internal Medicine; PCP Internal Medicine; Referring Provider Internal Medicine Hematology & Oncology; Visit Provider Internal Medicine Hematology & Oncology
DX: R60.9 Edema, unspecified (principal); C34.90 Malignant neoplasm of unspecified part of unspecified bronchus or lung; R91.8 Other nonspecific abnormal finding of lung field; C77.9 Secondary and unspecified malignant neoplasm of lymph node, unspecified; I82.90 Acute embolism and thrombosis of unspecified vein; Z79.899 Other long term (current) drug therapy
CPT/HCPCS: 93970

== ENCOUNTER 2019-02-07 10:57 | Inpatient (IN) | payer OTHER, SELFPAY ==
[2018-04-14 08:57] VITALS: BMI 26.5
[2019-02-04 09:51] VITALS: BMI 29.4
[2019-02-07] VITALS (20 sets, daily range): BP systolic 87–131; BP diastolic 59–82; PULSE 90–110; RESP 13–22; TEMP 36.7–36.9; O2SAT 89–99; BMI 29.5; BMI 28.8
--- NOTE | 2019-02-07 11:15 | EKG12_ITS ---
Test Reason : ALT LOC Blood Pressure : / mmHG Vent. Rate : 099 BPM Atrial Rate : 099 BPM P-R Int : 188 ms QRS Dur : 086 ms QT Int : 398 ms P-R-T Axes : 080 072 076 degrees QTc Int : 510 ms Normal sinus rhythm Septal infarct , age undetermined Prolonged QT Abnormal ECG Confirmed by SHABANA MARTINES ([id number]), clinical editor CHRISTINE BELL ([id number]) on 02/11/2019 2:00:30 PM Referred By: TANA Confirmed By:SHABANA MARTINES
--- NOTE | 2019-02-07 11:15 | CT_ITS ---
STUDY: CT BRAIN WITHOUT CONTRAST REASON FOR EXAM: Female, 58 years old. RADIATION DOSAGE (If Supplied By Facility): CTDIvol = ( 44.99 ) mGy, DLP = ( 829.85 ) mGycm TECHNIQUE: Transaxial CT imaging of the brain was performed without administration of intravenous contrast material. Individualized dose optimization techniques were used for this CT. COMPARISON: October 17, 2017 FINDINGS: Normal soft tissue structures. Normal calvarium. Normal size ventricles and extra-axial spaces for the patient's age. Normal white matter tracts of the cerebral hemispheres. Normal basal ganglia and thalami. Normal brainstem. Normal cerebellum. There is no intracranial hemorrhage. There are no findings of an acute ischemic infarction. Normal visualized paranasal sinuses. CT/Brain/Head without Contrast IMPRESSION: Normal unenhanced CT scan of the brain unchanged since October 17, 2017. Electronically Signed: Adrian Brunner, at 13:31 EDT Tel , Service support ,
--- NOTE | 2019-02-07 11:16 | ED.VIS.GEN ---
History of Present Illness Chief Complaint: Alt LOC Informant: Patient, Family Onset: Today Current Severity: Mild Narrative: Patient has history of stage IV lung cancer currently on Keytruda chemotherapy through the cancer center here at this hospital, reports that yesterday she was seen her physicians she had duplex scans that showed no DVT other test that was unremarkable was decided by her physician that she be started on doxycycline antibiotic 300 mg which she took once for unspecified condition and today the reports she woke and she seemed tired and more confused and he brought her to the hospital. The patient is awake to her name [facility] her 's name she has no complaints of any kind of than reports she has generalized weakness, she denies headache fever cough abdominal pain Past Medical History - Allergies and Home Meds Allergies/Adverse Reactions: Allergies No Known Allergies Allergy (Verified 02/07/19 11:02) REVIEWED ON 01-22-18 Primary Care Physician: Andrés Helms MD [Primary Care Provider] - Past Medical History: - - Lung cancer as above see above Surgical History: - - Bilateral carpal tunnel surgery, bilateral hammertoe surgery, lung biopsy Smoking Status: Former smoker - Family History Maternal Family History: Family History (Last Reviewed 02/04/19 @ 09:50 by Elizabeth Canchola) Mother Breast cancer Father Cancer Sister Aneurysm Family History: Reports: - - no CVA Paternal Family History: Family History (Last Reviewed 02/04/19 @ 09:50 by Elizabeth Canchola) Mother Breast cancer Father Cancer Sister Aneurysm Family History: Reports: No pertinent history Review of Systems General: Reports: - - Chief complaint is generalized weakness she is not confused nor does she have any other physical complaints. Denies: Chills, Fever, Sweats Eyes: Denies: Visual changes - bilaterally, Diplopia ENT: Denies: Rhinorrhea, Sore throat Cardiovascular: Denies: Chest pain, Palpitations Respiratory: Denies: Dyspnea, Cough, Dyspnea on exertion Gastrointestinal: Denies: Abdominal pain, Nausea, Vomiting, Diarrhea, Melena, Hematochezia Genitourinary: Denies: Dysuria, Hematuria, Frequency Musculoskeletal: Denies: Back pain, Extremity Pain Skin: Denies: Rash, Wounds Neurological: Denies: Headache, Weakness, Numbness Physical Exam Vital Signs/Narrative: Vital Signs Temp Pulse Resp BP Pulse Ox 02/07/19 10:59 98.2 F 110 H 18 103/60 96 General: Well nourished, Well developed, No Acute Distress Head: Normocephalic, Atraumatic Eyes: Perrl, EOMI ENT: Moist mucous membranes, No rhinorrhea Neck: Supple, Nontender Cardiovascular: Regular rate, Regular rhythm, No murmurs Respiratory: No distress, CTA bilaterally, Chest nontender Abdomen: Soft, Nontender, Nondistended, Normal bowel sounds Back: Nontender, Normal Inspection Extremities: Nontender, Edema, - - She has about 3+ symmetric edema she has no signs of cellulitis she is moving all 4 extremities Skin: Normal color, No rash Neurological: Alert, Oriented x3, Cranial nerves II-XII grossly intact, Normal Strength, Normal Sensation Psychological: Normal affect, Normal Mood Diagnostic/Tx/Re-eval - Medical Decision Making Patient is afebrile her vital signs are normal she has no specific complaints is no signs of confusion now no neurologic abnormalities or signs of infection screening labs are obtained CT Sodium is 115 her troponin is only 1.4 EKG shows sinus with no acute injury pattern appreciated, her sodium was 122 yesterday and that was why the doxycycline medication was prescribed per the note her head CT shows nothing acute Given all the above I have asked hospice to further management admission Admit stable Final impression Worsening hyponatremia, metastatic lung cancer, abnormal troponin, confusion and generalized weakness ED Disposition - Plan for ED Patient: Referrals: Andrés Helms MD [Primary Care Provider] -
[2019-02-07] MEDS: 0.9% Normal Saline 1,000 ML 125 ML IV (11:26)
[2019-02-07 11:32] LABS: Absolute Lymphocyte Count 1.59 X10^3/ul (0.83-4.51); Absolute Neutrophil Count 4.4 X10^3/uL (2.0-7.7); Basophil# 0.06 X10^3/uL; Basophil% 0.7 % (0-1); Differential Indicated SCAN CRITERIA MET; Eosinophil# 0.68 X10^3/uL; Eosinophils% 8.2 % (0-5); Hematocrit 32.2 % (37-47); Hemoglobin 11.3 g/dl (12.0-15.0); Lymphocyte # 1.59 X10^3/ul (4.0); Lymphocyte % 19.2 % (19-41); Mean Corp Hgb Conc 35.1 g/gl (32-36); Mean Corpuscular Hgb 30.4 pg (27.0-32.0); Mean Corpuscular Volume 86.6 fL (81-99); Mean Platelet Vol. 8.5 fl (6.2-12.0); Monocyte# 1.55 X10^3/uL; Monocyte% 18.8 % (0-10); Neutrophil # 4.35 X10^3/uL (2.7-7.7); Neutrophil % 52.7 % (47-70); POSITIVE COUNT NO; POSITIVE DIFFERENTIAL YES; POSITIVE MORPHOLOGY NO; Platelet Count 276 K/mm3 (150-450); RBC Distribution Width CV 13.7 % (11.6-14.6); RBC Distribution Width SD 43.5 fl (35.1-43.9); Red Blood Count 3.72 M/mm3 (4.2-5.4); White Blood Count 8.3 K/mm3 (4.4-11.0)
[2019-02-07 11:54] LABS: AST(SGOT) 24 U/L (15-37); Alanine Aminotransfer ALT/SGPT 10 U/L (13-56); Albumin, Serum 2.8 g/dL (3.2-5.0); Alkaline Phosphatase 62 U/L (45-117); Anion Gap 10 (5-15); BUN 5 mg/dL (7-18); BUN/Creat Ratio 8.8 RATIO (10-20); Bilirubin, Direct 0.23 mg/dL (0.00-0.30); Calcium,Total 7.7 mg/dL (8.5-10.1); Chloride 83 mmol/L (98-107); Creatinine, Serum 0.57 mg/dL (0.55-1.02); EST Glomerular Filtration Rate 115 mL/min (>60); Est Glom Filt Rate - Afr Amer 139 mL/min (>60); Estimated Creatinine Clearance 94.44 ml/min; Glucose 93 mg/dL (74-106); Lipase 203 U/L (73-393); Potassium 3.2 mmol/L (3.5-5.1); Protein, Total 5.8 g/dL (6.4-8.2); Sodium Level 115 mmol/L (136-145)
[2019-02-07 13:13] LABS: Color, Urine Yellow (Yellow); Glucose, Dipstick Normal (Normal); Leukocyte Esterase-Dipstick 500 /ul (Negative); Nitrite-Dipstick Negative (Negative); Occult Blood-Urine 250 /ul (Negative); Protein-Dipstick 15 mg/dl (Negative); Specific Gravity, Urine 1.025 (1.002-1.030); Urine Bilirubin Dipstick Negative (Negative); Urine Clarity Cloudy (Clear); Urine Urobilinogen Normal (Normal)
[2019-02-07 13:14] LABS: Ketone-Dipstick 150 mg/dl (Negative)
[2019-02-07 13:15] LABS: Bacteria 2+ /hpf (None Seen); Mucous, Urine RARE /hpf (<or=2+); Red Blood Cells-Urine 10-25 SEEN /hpf (0-5); Squamous Epithelial Cells - UA 0-5 SEEN /hpf (5-10); White Blood Cells 5-10 SEEN /hpf (0-5)
--- NOTE | 2019-02-07 13:58 | NURSING ---
ICU ASHELFAH HYPONATREMIA, MET LUNG CA, ABN TROP, FAILED OP
--- NOTE | 2019-02-07 14:18 | NURSING ---
ICU 2
--- NOTE | 2019-02-07 14:26 | PCM.HP.STD ---
Problem List (1) Non-ST elevation DE (NSTEMI) Status: Acute (2) Encephalopathy Status: Acute (3) Severe hyponatremia Status: Acute (4) Pulmonary embolism Status: Chronic (5) Lung nodule, multiple Status: Chronic (6) Regional lymph node metastasis present Status: Chronic (7) Small cell lung cancer in adult Status: Chronic (8) Seizure disorder Status: Chronic History of Present Illness Date of Admission: 02/07/19 Chief Complaint: Change in mental status, confusion. The patient is a 58 year old F with past medical history as mentioned above presented to the emergency room because of change in mental status and confusion. At this time, patient is confused, disoriented, oriented only to herself. She denies any symptoms. Patient's was at the bedside and he provided most of the information. The mentioned that patient was minimally sleepy yesterday, groggy and this morning, she woke up, stayed in her bed for more than an hour which is very unusual, went to the bathroom and she stayed around 30 minutes which is also unusual and after she came out, she was arguing with her about taking her morning medications. mentioned that she said she does not take any medication. He states that she does not locked herself, confused, not knowing what is going on. Patient denied chest pain or shortness of breath. She denied abdominal pain, nausea or vomiting. She denied cough or sputum production. She denies fever or chills. She has history of small cell lung cancer, currently on chemotherapy, received cisplatin/irinotecan on October,, received carboplatin/etoposide on Dec, 2017, Taxol on May, and Keytruda on October 2018 and she has been following up with Dr. Huggins as outpatient. She has history of bilateral PEs and she has been on anticoagulation with Edoxaban. She has history of hyponatremia induced seizure, was in [facility] in the past and she was taken off because she had no recurrence of seizure for long time. She has history of chronic hyponatremia secondary to SIADH and she has been on demeclocycline. In the emergency department, she was afebrile, slightly tachycardic, blood pressure stable, pulse ox is 96% on room air. Her routine blood work was remarkable for hemoglobin of 11.3 g/dL, sodium of 115, potassium 3.2. CT scan brain showed no acute findings. EKG revealed normal sinus rhythm without evidence of acute ischemic changes. Troponin is elevated at 1.45. Urinalysis revealed cloudy urine, 500 leukocyte esterase, there was 5-10 WBCs and 2+ bacteria seen. She is being admitted for acute encephalopathy/confusion secondary to symptomatic severe hyponatremia, hypokalemia, non-ST elevation DE and probable acute cystitis. Past Medical History Past Medical History (Chronic Problems): Chronic Problems (Last Updated 02/07/19 @ 14:25 by Pan Boggs MD) Anemia (Chronic) Pulmonary embolism (Chronic) Chemotherapy induced neutropenia (Chronic) Lung nodule, multiple (Chronic) Regional lymph node metastasis present (Chronic) Chemotherapy management, encounter for (Chronic) Adjustment disorder (Chronic) Small cell lung cancer in adult (Chronic) Seizure disorder (Chronic) Tobacco dependence in remission (Chronic) Medical History: Medical History (Last Updated 02/07/19 @ 14:25 by Pan Boggs MD) Small cell lung cancer in adult (Chronic) C34.90 Seizure disorder (Chronic) G40.909 Tobacco dependence in remission (Chronic) F17.201 Allergies No Known Allergies Allergy (Verified 02/07/19 11:02) REVIEWED ON 01-22-18 Home Medications: Ambulatory Orders Medication Instructions Recorded Lidocaine/Prilocaine 30 gm TP DAILY PRN PRN #1 cream..g. 10/07/17 [Lidocaine-Prilocaine Cream] Edoxaban Tosylate [Savaysa] 60 mg PO DAILY #30 tab 04/24/18 famotidine 20 mg tablet 20 mg PO DAILY 06/23/18 Demeclocycline HCl 300 mg PO DAILY 30 Days #30 tab 02/04/19 Handicap Placards 1 drp SQ PRN PRN 02/07/19 Surgical History: Surgical History (Last Reviewed 02/04/19 @ 09:50 by Elizabeth Canchola) H/O breast augmentation Z98.82 History of carpal tunnel release Z98.890 History of tubal ligation Z98.51 hammer toe repair med port placement Sep 2017 Surgical History: - - Bilateral carpal tunnel surgery, bilateral hammertoe surgery, lung biopsy Psychiatric History: No pertinent psych hx BOX BUILDER History: No pertinent BOX BUILDER history Lives: Spouse/ Significant Other Smoking Status: Former smoker Alcohol: None Drugs: None - *Family History Maternal Family History: Family History (Last Reviewed 02/04/19 @ 09:50 by Elizabeth Canchola) Mother Breast cancer Father Cancer Sister Aneurysm History Items: - - no CVA Paternal Family History: Family History (Last Reviewed 02/04/19 @ 09:50 by Elizabeth Canchola) Mother Breast cancer Father Cancer Sister Aneurysm History Items: No pertinent history Review of Systems Constitutional: Reports: Anorexia, Weakness. Denies: Chills, Fever Eyes: Denies: Blurred vision, Double vision, Drainage, Redness HEENT: Denies: Difficulty Hearing, Ear Pain, Eye Pain, Nasal Congestion, Sore Throat Cardiovascular: Denies: Chest Pain, Chest Pressure, Chest Tightness, Heaviness, Light Headedness, Palpitations, Syncope Respiratory: Denies: Cough, Hemoptysis, Pleuritic Pain, Shortness of Breath, Sputum production Gastrointestinal: Denies: Abdominal Pain, Constipation, Diarrhea, Nausea, Vomiting Genitourinary: Denies: Dysuria, Frequency, Hematuria Musculoskeletal: Denies: Arm Pain, Back Pain, Foot Pain Skin: Denies: Dryness, Rash Neurological: Reports: Confusion. Denies: Balance problems, Double vision, Change in Speech, Slurred speech, Headaches, Incoordination, Numbness Psychiatric: Denies: Anxiety, Depression Endocrine: Denies: Change in Body Habitus, Polydipsia, Polyuria VTE Information - Inpt Only VTE Present on Admission: No VTE Mechan Device Prophylaxis: None VTE Pharm Prophylaxis ordered?: No Patient Problems: Active and Suspected Problems (Last Updated 02/07/19 @ 14:25 by Pan Boggs MD) Non-ST elevation DE (NSTEMI) (Acute) Encephalopathy (Acute) Severe hyponatremia (Acute) - Physical Exam General: Alert, Cooperative, No apparent distress, Confused, Disoriented HEENT: Atraumatic, PERRLA, EOMI, Normocephalic Oral: Moist Mucosa, No Gingival or Mucosal Lesions/ Ulcerations Neck: Supple, No JVD, Negative Carotid Bruits, Trachea Midline, Thyroid Normal Size and Texture Lungs: Clear to auscultation, Normal air movement, No rhonchi, No wheeze, No rales, Diminished Cardiovascular: Regular rate, Regular Rhythm, Normal S1, Normal S2, No murmurs, PMI Normal Abdomen: Bowel Sounds Present, Soft, Non Tender, Non-Distended, No Hepato-splenomegaly Extremities: No clubbing, No cyanosis, No edema Skin: No rashes, No breakdown Lymphatic: No Cervical, Supraclavicular, or Inguinal Adenopathy Neurological: Cranial nerves II-XII grossly intact, Motor Exam 5/5 strength throughout Psych/Mental Status: Normal Affect, Flat Affect Vital Signs Temp Pulse Resp BP Pulse Ox 98.1 F 104 H 16 113/66 96 02/07/19 14:12 02/07/19 14:12 02/07/19 14:12 02/07/19 14:12 02/07/19 14:12 Oxygen Delivery Method Room Air Weight: 177 lb 6.4 oz Body Mass Index (BMI) 29.5 Finger Stick Blood Glucose 97 Laboratory Tests Past 24 Hrs 02/07/19 02/07/19 02/07/19 11:20 11:20 13:00 WBC 8.3 RBC 3.72 L Hgb 11.3 L Hct 32.2 L MCV 86.6 MCH 30.4 MCHC 35.1 RDW 13.7 RDW Differential 43.5 Plt Count 276 MPV 8.5 Immature Gran % (Auto) 0.400 Neut % (Auto) 52.7 Lymph % (Auto) 19.2 Calloway % (Auto) 18.8 H Eos % (Auto) 8.2 H Baso % (Auto) 0.7 Absolute Neuts (auto) 4.4 Absolute Lymphs (auto) 1.59 Total Counted Not Reportable Sodium 115 L* Potassium 3.2 L Chloride 83 L Carbon Dioxide 22.0 Anion Gap 10 BUN 5 L Creatinine 0.57 Estim Creat Clear Calc 94.44 Est GFR (MDRD) Af Amer 139 Est GFR (MDRD) Non-Af 115 BUN/Creatinine Ratio 8.8 L Glucose 93 Calcium 7.7 L Total Bilirubin 0.80 Direct Bilirubin 0.23 AST 24 ALT 10 L Alkaline Phosphatase 62 Troponin I 1.450 H* Total Protein 5.8 L Albumin 2.8 L Globulin 3.0 Lipase 203 Urine Color Yellow Urine Clarity Cloudy Urine pH 5.0 Ur Specific [place] 1.025 Urine Protein 15 H Urine Glucose (UA) Normal Urine Ketones 150 H Urine Occult Blood 250 H Urine Nitrite Negative Urine Bilirubin Negative Urine Urobilinogen Normal Ur Leukocyte Esterase 500 H Urine RBC 10-25 SEEN Urine WBC 5-10 SEEN Ur Squamous Epith Cells 0-5 SEEN Urine Bacteria 2+ Urine Mucus RARE Clinical Impression(s) from Imaging Studies Brain CT 02/07/19 11:15 IMPRESSION: Normal unenhanced CT scan of the brain unchanged since October 17, 2017. Electronically Signed: Adrian Brunner, at 13:31 EDT Tel , Service support , Assessment/Plan All Active Problems (Last Updated 02/07/19 @ 14:25 by Pan Boggs MD) Non-ST elevation DE (NSTEMI) (Acute) Encephalopathy (Acute) Severe hyponatremia (Acute) This is a 58 years old female patient presented to the emergency room with change in mental status, confusionand she was found to have acute on chronic severe hyponatremia, hypokalemia, acute non-STEMI and probable acute cystitis. #1 acute on chronic symptomatic severe hyponatremia: Admission sodium was 115, she is confused, disoriented. She has history of hyponatremia induced seizure. She does have a history of chronic hyponatremia secondary to SIADH. CT scan brain showed no acute findings. EKG reviewed as below. Plan: Admit to ICU, critical care monitoring, complete bedrest, start 3% saline 150 cc over 20 minutes, repeat BMP in 1 hour, normal saline at 75 cc/h, seizure precautions, IV Ativan PRN for seizure, check serum magnesium, replace potassium, continue demeclocycline, critical care consult, repeat CBC and BMP tomorrow morning, PT OT evaluation and treatment. #2 acute non-ST elevation DE: EKG revealed no acute ischemic changes. Patient denies any chest pain. Patient received cisplatin back in 2018 which can cause cardiotoxicity. She received Keytruda recently, this can cause myocarditis. Plan: Cardiac monitoring, serial cardiac enzymes, 2D echocardiogram, start small dose beta-blockers, cardiology consult. #3 hypokalemia: Potassium is 3.2. Plan: Replace potassium with IV potassium in the right, check serum magnesium, repeat BMP tomorrow morning. #4 probable acute cystitis: Urinalysis reviewed. Patient denies any symptoms. Plan: Urine culture, start IV Rocephin. #5 small cell lung cancer: On chemotherapy, received cisplatin, carboplatin and currently on Keytruda. According to the , she is scheduled to have MRI brain done this coming Saturday and CT scan chest this coming Saturday. Requested to keep those appointments. Plan as above. #6 history of bilateral PEs: Continue edoxaban for anticoagulation. It was #7 history of seizure disorder: Hyponatremia induced. Patient was on Keppra but she was taken off Keppra because of no recurrence of seizure. At this time, no seizure, plan seizure precautions, IV Ativan PRN. #8 chronic anemia: Secondary to cancer and chemotherapy. Hemoglobin stable at baseline. #9 DVT prophylaxis: Continue anticoagulation with edoxaban. #10 CODE STATUS: Discussed with the patient's , she is full code. This note was generated with [employer] dictation software. It may contain incorrect words, spelling, and punctuation that were not noted in checking the note before signing. Code Visit Inpatient E&M: 24868 Init Hosp L3
--- NOTE | 2019-02-07 14:38 | ECHOD_ITS ---
Reason For Study: S/P IL Procedure This was a 2D Doppler, Color Flow transthoracic echocardiogram. Myocardial strain analysis was performed in this exam to aid in the assessment of cardiac function. Exam performed portable in ICU/CCU. Left Ventricle Normal LV size. Left ventricular systolic function is normal. The estimated ejection fraction is 60 %. Stage 1 diastolic dysfunction. No regional wall motion abnormalities noted. Right Ventricle Normal RV size. Normal systolic function. Atria Normal left atrium. Normal right atrium. Mitral Valve Normal mitral valve. Tricuspid Valve Normal tricuspid valve. Mild tricuspid valve insufficiency. Pulmonary artery systolic pressure is 36 mmHg. Aortic Valve The aortic valve is not well visualized. Pulmonic Valve The pulmonic valve is not well visualized. Great Vessels Normal aortic root. The pulmonary artery is normal size. Normal inferior vena cava. Pericardium/Pleural Small pericardial effusion. MMode/2D Measurements & Calculations LVIDd: 4.3 cm IVSd: 1.0 cm LA dimension: 3.4 cm LVIDs: 2.8 cm LVPWd: 1.0 cm FS: 35.4 % LAV(MOD-bp): 33.1 ml LVAd ap4: 25.1 cm2 SV(MOD-sp4): 40.4 ml LAV(MOD-bp) Indexed: 17.6 ml/m2 EDV(MOD-sp4): 67.9 ml LAV(MOD-sp2): 33.6 ml EDV(sp4-el): 70.5 ml LAV(MOD-sp4): 29.3 ml LVAs ap4: 15.0 cm2 ESV(MOD-sp4): 27.4 ml ESV(sp4-el): 28.5 ml EF(MOD-sp4): 59.6 % EF(sp4-el): 59.6 % SV(sp4-el): 42.0 ml LA A4 area: 13.5 cm2 RA A4 area: 9.7 cm2 Time Measurements MV dec time: 0.17 sec Doppler Measurements & Calculations MV E max eric: 88.7 cm/sec Lat Peak E' Eric: 13.7 cm/sec Ao V2 max: 131.0 cm/sec MV A max eric: 99.7 cm/sec E/E' lat: 6.5 Ao max P.9 mmHg MV E/A: 0.89 LV V1 max: 98.9 cm/sec PA V2 max: 94.4 cm/sec TR max eric: 283.6 cm/sec LV V1 max P.9 mmHg TR max P.2 mmHg Interpretation Summary Normal LV size. Left ventricular systolic function is normal. The estimated ejection fraction is 60 %. Stage 1 diastolic dysfunction. Mild tricuspid valve insufficiency. Ordering Physician: Pan Boggs Referring Physician: Andrés Helms Performed By: Lui Parr RCS
[2019-02-07 15:33] LABS: Sodium Level 118 mmol/L (136-145)
[2019-02-07] MEDS: Potassium Chloride 10mEq/100mL 10 MEQ/100 ML IV.SOLN. 100 MEQ IV BOLUS ×2 (15:40→16:33)
[2019-02-07 15:53] LABS: Magnesium 1.3 mg/dL (1.6-2.6)
[2019-02-07 16:43] LABS: Sodium Level 118 mmol/L (136-145)
[2019-02-07] MEDS: Ceftriaxone 1 GM/50 ML BAG IV (19:51)
[2019-02-07] MEDS: Magnesium Sulfate 4gm/100mL 4 GM/100 ML IV.SOLN. IV (20:24)
[2019-02-07] MEDS: Sodium Chloride 3% 500 ML 450 ML IV (20:28)
[2019-02-07 21:25] LABS: Anion Gap 9 (5-15); BUN 3 mg/dL (7-18); BUN/Creat Ratio 6.2 RATIO (10-20); Calcium,Total 7.4 mg/dL (8.5-10.1); Chloride 91 mmol/L (98-107); Creatinine, Serum 0.48 mg/dL (0.55-1.02); EST Glomerular Filtration Rate 140 mL/min (>60); Est Glom Filt Rate - Afr Amer 169 mL/min (>60); Estimated Creatinine Clearance 112.15 ml/min; Glucose 68 mg/dL (74-106); Potassium 3.6 mmol/L (3.5-5.1); Sodium Level 120 mmol/L (136-145)
[2019-02-08] VITALS (32 sets, daily range): BP systolic 72–122; BP diastolic 48–79; PULSE 83–107; RESP 13–25; TEMP 36.3–37.2; O2SAT 93–100
[2019-02-08 04:01] LABS: Absolute Lymphocyte Count 1.35 X10^3/ul (0.83-4.51); Absolute Neutrophil Count 4.3 X10^3/uL (2.0-7.7); Basophil# 0.04 X10^3/uL; Basophil% 0.5 % (0-1); Eosinophil# 0.51 X10^3/uL; Eosinophils% 6.8 % (0-5); Hematocrit 29.2 % (37-47); Hemoglobin 10.2 g/dl (12.0-15.0); Lymphocyte # 1.35 X10^3/ul (4.0); Mean Corp Hgb Conc 34.9 g/gl (32-36); Mean Corpuscular Hgb 30.5 pg (27.0-32.0); Mean Corpuscular Volume 87.4 fL (81-99); Mean Platelet Vol. 8.9 fl (6.2-12.0); Monocyte# 1.28 X10^3/uL; Monocyte% 17.1 % (0-10); Neutrophil # 4.29 X10^3/uL (2.7-7.7); Neutrophil % 57.3 % (47-70); Platelet Count 296 K/mm3 (150-450); RBC Distribution Width CV 13.4 % (11.6-14.6); RBC Distribution Width SD 41.6 fl (35.1-43.9); Red Blood Count 3.34 M/mm3 (4.2-5.4); White Blood Count 7.5 K/mm3 (4.4-11.0)
[2019-02-08 04:02] LABS: POSITIVE COUNT NO; POSITIVE DIFFERENTIAL NO; POSITIVE MORPHOLOGY NO
[2019-02-08 04:10] LABS: Anion Gap 15 (5-15); BUN 4 mg/dL (7-18); BUN/Creat Ratio 8.4 RATIO (10-20); Calcium,Total 7.6 mg/dL (8.5-10.1); Chloride 90 mmol/L (98-107); Creatinine, Serum 0.48 mg/dL (0.55-1.02); EST Glomerular Filtration Rate 141 mL/min (>60); Est Glom Filt Rate - Afr Amer 171 mL/min (>60); Estimated Creatinine Clearance 112.15 ml/min; Glucose 55 mg/dL (74-106); Potassium 3.8 mmol/L (3.5-5.1); Sodium Level 123 mmol/L (136-145)
--- NOTE | 2019-02-08 06:39 | PCM.CON.CC ---
Reason for Consult Date of Consultation: 02/08/19 Reason for Consultation: Hyponatremia History of Present Illness: The patient is a 58-year-old female, with a history as outlined below, who presented to the emergency department on February 07 with altered mentation in the setting of hyponatremia. The patient has known small cell lung cancer, diagnosed in September 2017 following EBUS directed transbronchial needle aspiration. The patient currently follows with Dr. Huggins of oncology. 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 At her office visit with her oncologist on February 04, the patient was started on demeclocycline 300 mg daily. 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 The patient appears to be managed at the present time by oncology on Keytruda, which was started in October 2018. She did report a history of recent intermittent episodes of diarrhea. On presentation to the emergency department, the patient was noted to be afebrile and hemodynamically stable. She was maintaining appropriate oxygen saturations on room air. Laboratory evaluation revealed no evidence of a leukocytosis. Sodium was low at 115. He was previously noted to be 122 on February 04. Potassium was low at 3.2. Magnesium was low at 1.3. Initial troponin was elevated to 1.45. CT head revealed no acute intracranial pathology. The patient was subsequently transferred to the medical intensive care unit. The patient was placed initially on hypertonic saline. This morning, the patient's sodium has improved to 123. Potassium is now within normal limits. The patient remains afebrile and hemodynamically stable. The patient is currently alert and oriented to person and time. Past Medical History Past Medical History (Chronic Problems): Chronic Problems (Last Updated 02/07/19 @ 14:25 by Pan Boggs MD) Anemia (Chronic) Pulmonary embolism (Chronic) Chemotherapy induced neutropenia (Chronic) Lung nodule, multiple (Chronic) Regional lymph node metastasis present (Chronic) Chemotherapy management, encounter for (Chronic) Adjustment disorder (Chronic) Small cell lung cancer in adult (Chronic) Seizure disorder (Chronic) Tobacco dependence in remission (Chronic) Medical History: Medical History (Last Updated 02/07/19 @ 14:25 by Pan Boggs MD) Small cell lung cancer in adult (Chronic) C34.90 Seizure disorder (Chronic) G40.909 Tobacco dependence in remission (Chronic) F17.201 Allergies No Known Allergies Allergy (Verified 02/07/19 11:02) REVIEWED ON 01-22-18 Home Medications: Ambulatory Orders Medication Instructions Recorded Lidocaine/Prilocaine 30 gm TP DAILY PRN PRN #1 cream..g. 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 Denies: Chills, Fever Eyes: Denies: Blurred vision, Double vision HEENT: Denies: Head Aches, Sinus Congestion, Sinus Drainage Cardiovascular: Denies: Chest Pain, Palpitations Respiratory: Reports: Shortness of Breath. Denies: Cough Gastrointestinal: Reports: Diarrhea. Denies: Abdominal Pain Genitourinary: Denies: Dysuria Musculoskeletal: Denies: Joint Pain, Joint Tenderness Skin: Denies: Rash, Wounds Neurological: Reports: Confusion Psychiatric: Denies: Anxiety, Depression, Homicidal Ideations, Suicidal Ideations Hematologic/ Lymphatic: Reports: Hx of blood clot Patient Problems: Active and Suspected Problems (Last Updated 02/07/19 @ 14:25 by Pan Boggs MD) Non-ST elevation [place] (NSTEMI) (Acute) Encephalopathy (Acute) Severe hyponatremia (Acute) Objective: The patient's most recent lab work, culture data and imaging studies have all been personally reviewed. Surface echocardiogram from July 2017 revealed normal LV size and function with an ejection fraction of 55%. Pulmonary artery systolic pressure was noted to be 46 mmHg at that time. Urine cultures currently pending. - Physical Exam General: Alert, Cooperative, No apparent distress, - - Chronically ill in appearance. Alert and oriented to person and time. HEENT: Atraumatic, PERRLA, Normocephalic Oral: Dry Mucosa Neck: Supple, No Nodes, Trachea Midline Lungs: No rhonchi, No wheeze, No rales, Diminished Cardiovascular: Regular rate, Regular Rhythm, Normal S1, Normal S2, No murmurs Abdomen: Bowel Sounds Present, Soft, Non Tender Extremities: No clubbing, No cyanosis, Edema Skin: No breakdown Musculoskeletal: No Tenderness to Palpation of Joints or Extremities Lymphatic: No Cervical, Supraclavicular, or Inguinal Adenopathy Neurological: Neuro grossly intact Psych/Mental Status: Flat Affect Vital Signs Temp Pulse Resp BP Pulse Ox 98.2 F 99 15 107/74 93 02/08/19 04:00 02/08/19 06:00 02/08/19 06:00 02/08/19 06:00 02/08/19 06:00 Oxygen Delivery Method Room Air Weight: 178 lb 2.136 oz Body Mass Index (BMI) 28.8 Finger Stick Blood Glucose 97 Intake and Output for Last 24 Hours 02/06/19 02/07/19 02/08/19 23:59 23:59 23:59 Intake Total 812 / 812 97.2 / 97.2 Output Total 500 / 500 500 / 500 Balance 312 / 312 -402.8 / -402.8 Laboratory Tests Past 24 Hrs 02/07/19 02/07/19 02/07/19 11:20 11:20 13:00 WBC 8.3 RBC 3.72 L Hgb 11.3 L Hct 32.2 L MCV 86.6 MCH 30.4 MCHC 35.1 RDW 13.7 RDW Differential 43.5 Plt Count 276 MPV 8.5 Immature Gran % (Auto) 0.400 Neut % (Auto) 52.7 Lymph % (Auto) 19.2 [place] % (Auto) 18.8 H Eos % (Auto) 8.2 H Baso % (Auto) 0.7 Absolute Neuts (auto) 4.4 Absolute Lymphs (auto) 1.59 Total Counted Not Reportable Sodium 115 L* Potassium 3.2 L Chloride 83 L Carbon Dioxide 22.0 Anion Gap 10 BUN 5 L Creatinine 0.57 Estim Creat Clear Calc 94.44 Est GFR (MDRD) Af Amer 139 Est GFR (MDRD) Non-Af 115 BUN/Creatinine Ratio 8.8 L Glucose 93 Calcium 7.7 L Magnesium Total Bilirubin 0.80 Direct Bilirubin 0.23 AST 24 ALT 10 L Alkaline Phosphatase 62 Troponin I 1.450 H* Total Protein 5.8 L Albumin 2.8 L Globulin 3.0 Lipase 203 Urine Color Yellow Urine Clarity Cloudy Urine pH 5.0 Ur Specific [place] 1.025 Urine Protein 15 H Urine Glucose (UA) Normal Urine Ketones 150 H Urine Occult Blood 250 H Urine Nitrite Negative Urine Bilirubin Negative Urine Urobilinogen Normal Ur Leukocyte Esterase 500 H Urine RBC 10-25 SEEN Urine WBC 5-10 SEEN Ur Squamous Epith Cells 0-5 SEEN Urine Bacteria 2+ Urine Mucus RARE 02/07/19 02/07/19 02/07/19 15:15 15:15 15:15 WBC RBC Hgb Hct MCV MCH MCHC RDW RDW Differential Plt Count MPV Immature Gran % (Auto) Neut % (Auto) Lymph % (Auto) [place] % (Auto) Eos % (Auto) Baso % (Auto) Absolute Neuts (auto) Absolute Lymphs (auto) Total Counted Sodium 118 L* Potassium Chloride Carbon Dioxide Anion Gap BUN Creatinine Estim Creat Clear Calc Est GFR (MDRD) Af Amer Est GFR (MDRD) Non-Af BUN/Creatinine Ratio Glucose Calcium Magnesium 1.3 L Total Bilirubin Direct Bilirubin AST ALT Alkaline Phosphatase Troponin I 1.200 H* Total Protein Albumin Globulin Lipase Urine Color Urine Clarity Urine pH Ur Specific [place] Urine Protein Urine Glucose (UA) Urine Ketones Urine Occult Blood Urine Nitrite Urine Bilirubin Urine Urobilinogen Ur Leukocyte Esterase Urine RBC Urine WBC Ur Squamous Epith Cells Urine Bacteria Urine Mucus 02/07/19 02/07/19 02/07/19 16:20 21:00 21:00 WBC RBC Hgb Hct MCV MCH MCHC RDW RDW Differential Plt Count MPV Immature Gran % (Auto) Neut % (Auto) Lymph % (Auto) [place] % (Auto) Eos % (Auto) Baso % (Auto) Absolute Neuts (auto) Absolute Lymphs (auto) Total Counted Sodium 118 L* 120 L Potassium 3.6 Chloride 91 L Carbon Dioxide 20.0 L Anion Gap 9 BUN 3 L Creatinine 0.48 L Estim Creat Clear Calc 112.15 Est GFR (MDRD) Af Amer 169 Est GFR (MDRD) Non-Af 140 BUN/Creatinine Ratio 6.2 L Glucose 68 L Calcium 7.4 L Magnesium Total Bilirubin Direct Bilirubin AST ALT Alkaline Phosphatase Troponin I 1.090 H* Total Protein Albumin Globulin Lipase Urine Color Urine Clarity Urine pH Ur Specific [place] Urine Protein Urine Glucose (UA) Urine Ketones Urine Occult Blood Urine Nitrite Urine Bilirubin Urine Urobilinogen Ur Leukocyte Esterase Urine RBC Urine WBC Ur Squamous Epith Cells Urine Bacteria Urine Mucus 02/08/19 02/08/19 03:45 03:45 WBC 7.5 RBC 3.34 L Hgb 10.2 L Hct 29.2 L MCV 87.4 MCH 30.5 MCHC 34.9 RDW 13.4 RDW Differential 41.6 Plt Count 296 MPV 8.9 Immature Gran % (Auto) 0.300 Neut % (Auto) 57.3 Lymph % (Auto) 18.0 L [place] % (Auto) 17.1 H Eos % (Auto) 6.8 H Baso % (Auto) 0.5 Absolute Neuts (auto) 4.3 Absolute Lymphs (auto) 1.35 Total Counted Not Reportable Sodium 123 L Potassium 3.8 Chloride 90 L Carbon Dioxide 18.0 L Anion Gap 15 BUN 4 L Creatinine 0.48 L Estim Creat Clear Calc 112.15 Est GFR (MDRD) Af Amer 171 Est GFR (MDRD) Non-Af 141 BUN/Creatinine Ratio 8.4 L Glucose 55 L Calcium 7.6 L Magnesium Total Bilirubin Direct Bilirubin AST ALT Alkaline Phosphatase Troponin I Total Protein Albumin Globulin Lipase Urine Color Urine Clarity Urine pH Ur Specific [place] Urine Protein Urine Glucose (UA) Urine Ketones Urine Occult Blood Urine Nitrite Urine Bilirubin Urine Urobilinogen Ur Leukocyte Esterase Urine RBC Urine WBC Ur Squamous Epith Cells Urine Bacteria Urine Mucus Clinical Impression(s) from Imaging Studies Brain CT 02/07/19 11:15 IMPRESSION: Normal unenhanced CT scan of the brain unchanged since October 17, 2017. Electronically Signed: Adrian Brunner, at 13:31 EDT Tel , Service support , Assessment/Plan Active and Suspected Problems (Last Updated 02/07/19 @ 14:25 by Pan Boggs MD) Non-ST elevation [place] (NSTEMI) (Acute) Encephalopathy (Acute) Severe hyponatremia (Acute) RECOMMENDATIONS: 1. Check osmolality and urine sodium. If truly consistent with SIADH, place fluid restriction. 2. Aggressive electrolyte repletion. 3. Cardiology consultation is pending. Echocardiogram is pending. 4. Check magnesium and phosphorus levels. 5. Continue systemic anticoagulation with Savaysa, per home regimen. 6. Encourage incentive spirometer use and mobilize patient as tolerated. 7. Continue antibiotics over concerns for potential cystitis. 8. Physical therapy to evaluate the patient. IMPRESSIONS: 1. Symptomatic hyponatremia presumed secondary to SIADH in the setting of underlying lung cancer The patient appears to have been recently placed on Demeclocycline by her oncologist over concerns for SIADH. While she was previously noted to have episodes with hyponatremia in the past, it does appear that this was back in the spring 2017. More recently, up until lab work was completed on February 04, the patient's sodium was noted to be largely within normal limits. The patient was initially treated with hypertonic saline with subsequent improvement and sodium levels in mentation. She is also being maintained on antibiotics over concerns for potential cystitis given her presenting UA. At this time, I would first recommend checking urine osmolality and sodium levels. 2. Hypokalemia/hypomagnesemia Aggressive electrolyte repletion as indicated. Recheck levels status post repletion. 3. Extensive stage small cell lung cancer Currently following with Dr. Huggins of Oncology. Reassessment of disease status is currently being undertaken on an outpatient basis. The patient was placed on Keytruda in October 2018 but had a subsequent decline in her performance status along with weight loss and lower extremity edema. An echocardiogram is currently pending. She did have pulmonary hypertension noted on echo several years ago. I would be concerned for worsening pulmonary hypertension and possible right-sided heart failure leading to her lower extremity edema. 4. Non-ST segment elevation [facility] Cardiology is currently consulted. Echocardiogram is pending. 5. Personal history of malignancy induced venous thromboembolic disease Continue baseline systemic anticoagulation with Savaysa as ordered. This note was generated with [employer] dictation software. It may contain incorrect words, spelling, and punctuation that were not noted in checking the note before signing. Code Visit Inpatient E&M: 57429 Init Hosp L3
[2019-02-08 08:18] LABS: Magnesium 2.9 mg/dL (1.6-2.6); Phosphorus 2.8 mg/dL (2.5-4.9)
[2019-02-08] MEDS: 0.9% NaCl Peripheral Flush Adult/Peds IV ×3 (08:25→15:55)
[2019-02-08 08:52] LABS: Osmolality, Serum 239 mOsm/KG (275-295)
[2019-02-08] MEDS: Metoprolol Tartrate 25 MG Tablet 12.5 MG PO (09:21)
[2019-02-08] MEDS: Famotidine 20 MG Tablet PO (09:21)
[2019-02-08] MEDS: Ceftriaxone 1 GM/50 ML BAG IV (09:21)
[2019-02-08] MEDS: EDOXABAN TOSYLATE 60 MG TABLET PO (09:23)
[2019-02-08 09:55] LABS: Urine Sodium 122 mmol/L (Not Establ.)
--- NOTE | 2019-02-08 10:08 | PCM.PROGNOTE ---
Patient Problems: Active and Suspected Problems (Last Updated 02/07/19 @ 14:25 by Pan Boggs MD) Non-ST elevation CO (NSTEMI) (Acute) Encephalopathy (Acute) Severe hyponatremia (Acute) Subjective: Chief complaint: Follow-up after admission for acute on chronic somatic severe hyponatremia, encephalopathy, hypokalemia, acute non-ST elevation CO and probable acute cystitis. Patient seen and examined. No acute events overnight. This morning, patient is alert, oriented to herself, knew had a full name, date of , the month and the year and she mentioned that she is in the emergency department. Compared to yesterday, her mentation improved. She denies any chest pain or shortness of breath. Denied abdominal pain, nausea or vomiting. She is afebrile, heart rate has been around 100, blood pressure is maintained, pulse ox is normal on room air. - Physical Exam General: Alert, Cooperative, No apparent distress, - - Oriented to self, knew date including month and year, disoriented to place. HEENT: Atraumatic, PERRLA, EOMI, Normocephalic Oral: Moist Mucosa, No Gingival or Mucosal Lesions/ Ulcerations Neck: Supple, No JVD, Negative Carotid Bruits, Trachea Midline, Thyroid Normal Size and Texture Lungs: Clear to auscultation, Normal air movement, No rhonchi, No rales, Diminished Cardiovascular: Regular rate, Regular Rhythm, Normal S1, Normal S2, PMI Normal Abdomen: Bowel Sounds Present, Soft, Non Tender, Non-Distended, No Hepato-splenomegaly Extremities: No clubbing, No cyanosis, Edema - + Edema. Skin: No rashes, No breakdown Lymphatic: No Cervical, Supraclavicular, or Inguinal Adenopathy Neurological: Cranial nerves II-XII grossly intact, Neuro grossly intact Psych/Mental Status: Normal Affect, Appropriate Vital Signs Temp Pulse Resp BP Pulse Ox 98.9 F 99 13 120/78 97 02/08/19 08:00 02/08/19 09:21 02/08/19 09:00 02/08/19 09:21 02/08/19 09:00 Oxygen Delivery Method Room Air Weight: 178 lb 2.136 oz Body Mass Index (BMI) 28.8 Finger Stick Blood Glucose 97 Intake and Output for Last 24 Hours 0602/07/19 02/08/19 23:59 23:59 23:59 Intake Total 812 / 812 97.2 / 97.2 Output Total 500 / 500 500 / 500 Balance 312 / 312 -402.8 / -402.8 Laboratory Tests Past 24 Hrs 02/07/19 02/07/19 02/07/19 11:20 11:20 13:00 WBC 8.3 RBC 3.72 L Hgb 11.3 L Hct 32.2 L MCV 86.6 MCH 30.4 MCHC 35.1 RDW 13.7 RDW Differential 43.5 Plt Count 276 MPV 8.5 Immature Gran % (Auto) 0.400 Neut % (Auto) 52.7 Lymph % (Auto) 19.2 [place] % (Auto) 18.8 H Eos % (Auto) 8.2 H Baso % (Auto) 0.7 Absolute Neuts (auto) 4.4 Absolute Lymphs (auto) 1.59 Total Counted Not Reportable Sodium 115 L* Potassium 3.2 L Chloride 83 L Carbon Dioxide 22.0 Anion Gap 10 BUN 5 L Creatinine 0.57 Estim Creat Clear Calc 94.44 Est GFR (MDRD) Af Amer 139 Est GFR (MDRD) Non-Af 115 BUN/Creatinine Ratio 8.8 L Glucose 93 Serum Osmolality Calcium 7.7 L Phosphorus Magnesium Total Bilirubin 0.80 Direct Bilirubin 0.23 AST 24 ALT 10 L Alkaline Phosphatase 62 Troponin I 1.450 H* Total Protein 5.8 L Albumin 2.8 L Globulin 3.0 Lipase 203 Urine Color Yellow Urine Clarity Cloudy Urine pH 5.0 Ur Specific [place] 1.025 Urine Protein 15 H Urine Glucose (UA) Normal Urine Ketones 150 H Urine Occult Blood 250 H Urine Nitrite Negative Urine Bilirubin Negative Urine Urobilinogen Normal Ur Leukocyte Esterase 500 H Urine RBC 10-25 SEEN Urine WBC 5-10 SEEN Ur Squamous Epith Cells 0-5 SEEN Urine Bacteria 2+ Urine Mucus RARE Urine Osmolality Ur Random Sodium 02/07/19 02/07/19 02/07/19 15:15 15:15 15:15 WBC RBC Hgb Hct MCV MCH MCHC RDW RDW Differential Plt Count MPV Immature Gran % (Auto) Neut % (Auto) Lymph % (Auto) [place] % (Auto) Eos % (Auto) Baso % (Auto) Absolute Neuts (auto) Absolute Lymphs (auto) Total Counted Sodium 118 L* Potassium Chloride Carbon Dioxide Anion Gap BUN Creatinine Estim Creat Clear Calc Est GFR (MDRD) Af Amer Est GFR (MDRD) Non-Af BUN/Creatinine Ratio Glucose Serum Osmolality Calcium Phosphorus Magnesium 1.3 L Total Bilirubin Direct Bilirubin AST ALT Alkaline Phosphatase Troponin I 1.200 H* Total Protein Albumin Globulin Lipase Urine Color Urine Clarity Urine pH Ur Specific [place] Urine Protein Urine Glucose (UA) Urine Ketones Urine Occult Blood Urine Nitrite Urine Bilirubin Urine Urobilinogen Ur Leukocyte Esterase Urine RBC Urine WBC Ur Squamous Epith Cells Urine Bacteria Urine Mucus Urine Osmolality Ur Random Sodium 02/07/19 02/07/19 02/07/19 16:20 21:00 21:00 WBC RBC Hgb Hct MCV MCH MCHC RDW RDW Differential Plt Count MPV Immature Gran % (Auto) Neut % (Auto) Lymph % (Auto) [place] % (Auto) Eos % (Auto) Baso % (Auto) Absolute Neuts (auto) Absolute Lymphs (auto) Total Counted Sodium 118 L* 120 L Potassium 3.6 Chloride 91 L Carbon Dioxide 20.0 L Anion Gap 9 BUN 3 L Creatinine 0.48 L Estim Creat Clear Calc 112.15 Est GFR (MDRD) Af Amer 169 Est GFR (MDRD) Non-Af 140 BUN/Creatinine Ratio 6.2 L Glucose 68 L Serum Osmolality Calcium 7.4 L Phosphorus Magnesium Total Bilirubin Direct Bilirubin AST ALT Alkaline Phosphatase Troponin I 1.090 H* Total Protein Albumin Globulin Lipase Urine Color Urine Clarity Urine pH Ur Specific [place] Urine Protein Urine Glucose (UA) Urine Ketones Urine Occult Blood Urine Nitrite Urine Bilirubin Urine Urobilinogen Ur Leukocyte Esterase Urine RBC Urine WBC Ur Squamous Epith Cells Urine Bacteria Urine Mucus Urine Osmolality Ur Random Sodium 02/08/19 02/08/19 02/08/19 03:45 03:45 03:45 WBC 7.5 RBC 3.34 L Hgb 10.2 L Hct 29.2 L MCV 87.4 MCH 30.5 MCHC 34.9 RDW 13.4 RDW Differential 41.6 Plt Count 296 MPV 8.9 Immature Gran % (Auto) 0.300 Neut % (Auto) 57.3 Lymph % (Auto) 18.0 L [place] % (Auto) 17.1 H Eos % (Auto) 6.8 H Baso % (Auto) 0.5 Absolute Neuts (auto) 4.3 Absolute Lymphs (auto) 1.35 Total Counted Not Reportable Sodium 123 L Potassium 3.8 Chloride 90 L Carbon Dioxide 18.0 L Anion Gap 15 BUN 4 L Creatinine 0.48 L Estim Creat Clear Calc 112.15 Est GFR (MDRD) Af Amer 171 Est GFR (MDRD) Non-Af 141 BUN/Creatinine Ratio 8.4 L Glucose 55 L Serum Osmolality Calcium 7.6 L Phosphorus 2.8 Magnesium 2.9 H Total Bilirubin Direct Bilirubin AST ALT Alkaline Phosphatase Troponin I Total Protein Albumin Globulin Lipase Urine Color Urine Clarity Urine pH Ur Specific [place] Urine Protein Urine Glucose (UA) Urine Ketones Urine Occult Blood Urine Nitrite Urine Bilirubin Urine Urobilinogen Ur Leukocyte Esterase Urine RBC Urine WBC Ur Squamous Epith Cells Urine Bacteria Urine Mucus Urine Osmolality Ur Random Sodium 02/08/19 02/08/19 02/08/19 08:15 09:44 09:44 WBC RBC Hgb Hct MCV MCH MCHC RDW RDW Differential Plt Count MPV Immature Gran % (Auto) Neut % (Auto) Lymph % (Auto) [place] % (Auto) Eos % (Auto) Baso % (Auto) Absolute Neuts (auto) Absolute Lymphs (auto) Total Counted Sodium Potassium Chloride Carbon Dioxide Anion Gap BUN Creatinine Estim Creat Clear Calc Est GFR (MDRD) Af Amer Est GFR (MDRD) Non-Af BUN/Creatinine Ratio Glucose Serum Osmolality 239 L Calcium Phosphorus Magnesium Total Bilirubin Direct Bilirubin AST ALT Alkaline Phosphatase Troponin I Total Protein Albumin Globulin Lipase Urine Color Urine Clarity Urine pH Ur Specific [place] Urine Protein Urine Glucose (UA) Urine Ketones Urine Occult Blood Urine Nitrite Urine Bilirubin Urine Urobilinogen Ur Leukocyte Esterase Urine RBC Urine WBC Ur Squamous Epith Cells Urine Bacteria Urine Mucus Urine Osmolality Pending Ur Random Sodium 122 Medical Necessity - Tobacco Use Smoking Status: Former smoker Assessment/Plan All Active Problems (Last Updated 02/07/19 @ 14:25 by Pan Boggs MD) Non-ST elevation CO (NSTEMI) (Acute) Encephalopathy (Acute) Severe hyponatremia (Acute) This is a 58 years old female patient presented to the emergency room with change in mental status, confusionand she was found to have acute on chronic severe hyponatremia, hypokalemia, acute non-STEMI and probable acute cystitis. #1 acute on chronic symptomatic severe hyponatremia: Secondary to SIADH due to small cell lung cancer. Patient received a total of 450 cc of 3% saline yesterday. Sodium went up from 115 up to 123 this morning. Her mentation improved, still disoriented to place. Her vital signs are stable, afebrile. She had history of hyponatremia induced seizure. CT scan brain showed no acute findings. Plan to repeat serum sodiums afternoon, continue with demeclocycline, possible transfer to PCU later today. #2 acute non-ST elevation CO: EKG revealed no acute ischemic changes. Patient remained without chest pain. Troponin is trending down. Started on metoprolol. 2D echocardiogram ordered. Cardiology consulted, awaiting recommendations. Patient received cisplatin back in 2018 which can cause cardiotoxicity. She received Keytruda recently, this can cause myocarditis. #3 hypokalemia/hypomagnesemia: Replaced and corrected. Today's potassium is 3.8, today's magnesium is 2.9. Serum phosphorus was normal. #4 probable acute cystitis: She is on IV Rocephin. She has been afebrile, no leukocytosis. Urine culture is pending. #5 small cell lung cancer: On chemotherapy, received cisplatin, carboplatin and currently on Keytruda. According to the , she is scheduled to have MRI brain done this coming Saturday and CT scan chest this coming Saturday. Requested to keep those appointments. Plan as above. #6 history of bilateral PEs: Continue edoxaban for anticoagulation. #7 history of seizure disorder: Hyponatremia induced. stable, no seizure. Patient was on Keppra but she was taken off Keppra because of no recurrence of seizure. #8 chronic anemia: Secondary to cancer and chemotherapy. Hemoglobin stable at baseline. #9 DVT prophylaxis: Continue anticoagulation with edoxaban. #10 CODE STATUS: Discussed with the patient's , she is full code. This note was generated with [employer] software. It may contain incorrect words, spelling, and punctuation that were not noted in checking the note before signing. Code Visit Inpatient E&M: 62084 Subs Hosp L2
[2019-02-08 10:14] LABS: Osmolality, Urine 562 mOsm/KG
--- NOTE | 2019-02-08 10:45 | CON.PCM_ITS ---
Problem List (1) Non-ST elevation ME (NSTEMI) Status: Acute Reason for Consult Date of Consultation: 02/08/19 Reason for Consultation: NSTEMI History of Present Illness: The patient is a 58 year old F history of advanced small cell lung cancer, chronic hyponatremia due to SIADH, status post chemotherapy who presented to the hospital with mental status changes, having been brought by her . She was found to be severely hyponatremic, more than usual, and was started on fluid restriction and 3% saline. Her sodium has improved a little bit and with that her mental status did improve mildly. Cardiology was consulted secondary to elevated cardiac troponin, with the first sample elevated to 1.45 and decreasing in the next 2 samples, down to 1.09. She and her deny that she ever had any chest pain or shortness of breath. She has no cardiac history. Her chemotherapy in the past consisted of cis-[place] and carboplatinum-based regimens. She is currently on Keytruda. Her 12-lead electrocardiogram revealed the presence of sinus rhythm, prolonged QT interval, nonspecific ST-T wave changes, and low QRS voltage. [] Past Medical History Allergies/Adverse Reactions: Allergies No Known Allergies Allergy (Verified 02/07/19 11:02) REVIEWED ON 01-22-18 Home Medications: Ambulatory Orders Medication Instructions Recorded Lidocaine/Prilocaine 30 gm TP DAILY PRN PRN #1 cream..g. 10/07/17 [Lidocaine-Prilocaine Cream] Edoxaban Tosylate [Savaysa] 60 mg PO DAILY #30 tab 04/24/18 Demeclocycline HCl 300 mg PO DAILY 30 Days #30 tab 02/04/19 Ondansetron [Zofran Odt] 8 mg PO Q8H PRN PRN 02/07/19 Past Medical History (Chronic Problems): Chronic Problems (Last Updated 02/07/19 @ 14:25 by Pan Boggs MD) Anemia (Chronic) Pulmonary embolism (Chronic) Chemotherapy induced neutropenia (Chronic) Lung nodule, multiple (Chronic) Regional lymph node metastasis present (Chronic) Chemotherapy management, encounter for (Chronic) Adjustment disorder (Chronic) Small cell lung cancer in adult (Chronic) Seizure disorder (Chronic) Tobacco dependence in remission (Chronic) Surgical History: - - Bilateral carpal tunnel surgery, bilateral hammertoe surgery, lung biopsy Psychiatric History: No pertinent psych hx [employer] History: No pertinent [employer] history - *Family History Maternal Family History: Family History (Last Reviewed 02/04/19 @ 09:50 by Elizabeth Canchola) Mother Breast cancer Father Cancer Sister Aneurysm History Items: - - no CVA Paternal Family History: Family History (Last Reviewed 02/04/19 @ 09:50 by Elizabeth Canchola) Mother Breast cancer Father Cancer Sister Aneurysm History Items: No pertinent history Lives: Spouse/ Significant Other Smoking Status: Former smoker Alcohol: None Drugs: None Review of Systems - Review of Systems General: Denies: Fever, Night Sweats, Fatigue Cardiovascular: Denies: Chest Discomfort, Shortness of Breath, Orthopnea, PND, Peripheral Edema, Palpitations, Lightheadedness, Dizziness, Near Syncope, Syncope Respiratory: Denies: Cough, Sputum Production, Hemoptysis Gastrointestinal: Denies: Hematemesis, Hematochezia, Melena Genitourinary: Denies: Dysuria, Hematuria Skin: Denies: Rash Neurological: Reports: Confusion, Weakness Objective: Vital Signs Temp Pulse Resp BP Pulse Ox 98.9 F 99 13 120/78 97 02/08/19 08:00 02/08/19 09:21 02/08/19 09:00 02/08/19 09:21 02/08/19 09:00 Oxygen Delivery Method Room Air Weight: 178 lb 2.136 oz Body Mass Index (BMI) 28.8 Finger Stick Blood Glucose 97 Intake and Output for Last 24 Hours 02/06/19 02/07/19 02/08/19 23:59 23:59 23:59 Intake Total 812 / 812 97.2 / 97.2 Output Total 500 / 500 500 / 500 Balance 312 / 312 -402.8 / -402.8 General: Awake, Alert, Disoriented HEENT: PERRL, EOMI, Sclera Non Icteric Neck: Supple, Good ROM, No Lymph Node Enlargement Lungs: Clear to auscultation Cardiovascular: Regular Rhythm, Normal S1, Normal S2, No Murmurs, No Rubs, No Gallops Abdomen: Bowel Sounds Present, Soft, Non Tender, No HSM, No Organomegaly Extremities: No Cyanosis, No Clubbing, No edema 02/07/19 11:20: WBC 8.3, RBC 3.72 L, Hgb 11.3 L, Hct 32.2 L, MCV 86.6, MCH 30.4, MCHC 35.1, RDW 13.7, RDW Differential 43.5, Plt Count 276, MPV 8.5, Immature Gran % (Auto) 0.400, Neut % (Auto) 52.7, Lymph % (Auto) 19.2, [place] % (Auto) 18.8 H, Eos % (Auto) 8.2 H, Baso % (Auto) 0.7, Absolute Neuts (auto) 4.4, Total Counted Not Reportable 02/07/19 11:20: Sodium 115 L*, Potassium 3.2 L, Chloride 83 L, Carbon Dioxide 22.0, Anion Gap 10, BUN 5 L, Creatinine 0.57, Est GFR (MDRD) Af Amer 139, Est GFR (MDRD) Non-Af 115, BUN/Creatinine Ratio 8.8 L, Glucose 93, Calcium 7.7 L, Total Bilirubin 0.80, Direct Bilirubin 0.23, Troponin I 1.450 H* 02/07/19 13:00: Urine Color Yellow, Urine Clarity Cloudy, Urine pH 5.0, Ur Specific [place] 1.025, Urine Protein 15 H, Urine Glucose (UA) Normal, Urine Ketones 150 H, Urine Occult Blood 250 H, Urine Nitrite Negative, Urine Bilirubin Negative, Urine Urobilinogen Normal, Ur Leukocyte Esterase 500 H, Urine RBC 10- 25 SEEN, Urine WBC 5-10 SEEN 02/07/19 15:15: Magnesium 1.3 L 02/07/19 15:15: Sodium 118 L* 02/07/19 15:15: Troponin I 1.200 H* 02/07/19 16:20: Sodium 118 L* 02/07/19 21:00: Troponin I 1.090 H* 02/07/19 21:00: Sodium 120 L, Potassium 3.6, Chloride 91 L, Carbon Dioxide 20.0 L, Anion Gap 9, BUN 3 L, Creatinine 0.48 L, Est GFR (MDRD) Af Amer 169, Est GFR (MDRD) Non-Af 140, BUN/Creatinine Ratio 6.2 L, Glucose 68 L, Calcium 7.4 L 02/08/19 03:45: WBC 7.5, RBC 3.34 L, Hgb 10.2 L, Hct 29.2 L, MCV 87.4, MCH 30.5, MCHC 34.9, RDW 13.4, RDW Differential 41.6, Plt Count 296, MPV 8.9, Immature Gran % (Auto) 0.300, Neut % (Auto) 57.3, Lymph % (Auto) 18.0 L, [place] % (Auto) 17.1 H, Eos % (Auto) 6.8 H, Baso % (Auto) 0.5, Absolute Neuts (auto) 4.3, Total Counted Not Reportable 02/08/19 03:45: Sodium 123 L, Potassium 3.8, Chloride 90 L, Carbon Dioxide 18.0 L, Anion Gap 15, BUN 4 L, Creatinine 0.48 L, Est GFR (MDRD) Af Amer 171, Est GFR (MDRD) Non-Af 141, BUN/Creatinine Ratio 8.4 L, Glucose 55 L, Calcium 7.6 L 02/08/19 03:45: Phosphorus 2.8, Magnesium 2.9 H 02/08/19 08:15: Serum Osmolality 239 L Rhythm: EKG: ECHO: Stress Test: Cardiac Cath: PCI: CT Surgery: Holter monitor: EPS: PPM: CXR: Chest CT Scan: Assessment/Plan Impression: 1. Acute on chronic severe hyponatremia with mental status changes, improving 2. Hypokalemia/hypomagnesemia. 3. Non-ST elevation ME. 4. Advanced small cell lung cancer, status post chemotherapy, currently on Keytruda 5. History of PE, on chronic anticoagulation therapy 6. Urinary tract infection Plan: I did talk to the extensively about diagnostic options. This may include a heart catheterization and coronary angiography once her acute illness is resolved. I explained the risks and benefits. Considering her advanced lung cancer, he wants to think about it and make a decision. Meanwhile I agree with doing an echocardiogram to assess her LV function. Continue anticoagulation for her old PE.
[2019-02-08] MEDS: Acetaminophen 325 MG Tablet 650 MG PO (10:52)
[2019-02-08 14:37] LABS: Sodium Level 121 mmol/L (136-145)
[2019-02-08] MEDS: Ondansetron 4 MG/2 ML Vial IV (15:55)
[2019-02-09] VITALS (22 sets, daily range): BP systolic 80–142; BP diastolic 52–88; PULSE 96–134; RESP 14–21; TEMP 36.7–37.2; O2SAT 94–100
[2019-02-09 04:37] LABS: Anion Gap 12 (5-15); BUN 3 mg/dL (7-18); BUN/Creat Ratio 7.4 RATIO (10-20); Calcium,Total 7.7 mg/dL (8.5-10.1); Chloride 91 mmol/L (98-107); EST Glomerular Filtration Rate 171 mL/min (>60); Est Glom Filt Rate - Afr Amer 207 mL/min (>60); Estimated Creatinine Clearance 134.58 ml/min; Glucose 74 mg/dL (74-106); Magnesium 1.5 mg/dL (1.6-2.6); Phosphorus 2.3 mg/dL (2.5-4.9); Potassium 3.7 mmol/L (3.5-5.1); Sodium Level 124 mmol/L (136-145)
[2019-02-09 04:53] LABS: Absolute Lymphocyte Count 1.45 X10^3/ul (0.83-4.51); Absolute Neutrophil Count 3.1 X10^3/uL (2.0-7.7); Basophil# 0.06 X10^3/uL; Basophil% 0.9 % (0-1); Eosinophils% 16.5 % (0-5); Hematocrit 29.3 % (37-47); Hemoglobin 10.3 g/dl (12.0-15.0); Lymphocyte # 1.45 X10^3/ul (4.0); Lymphocyte % 21.8 % (19-41); Mean Corp Hgb Conc 35.2 g/gl (32-36); Mean Corpuscular Hgb 30.7 pg (27.0-32.0); Mean Corpuscular Volume 87.2 fL (81-99); Mean Platelet Vol. 8.7 fl (6.2-12.0); Monocyte# 0.97 X10^3/uL; Monocyte% 14.6 % (0-10); Neutrophil # 3.06 X10^3/uL (2.7-7.7); Platelet Count 298 K/mm3 (150-450); RBC Distribution Width CV 14.2 % (11.6-14.6); RBC Distribution Width SD 45.2 fl (35.1-43.9); Red Blood Count 3.36 M/mm3 (4.2-5.4); White Blood Count 6.7 K/mm3 (4.4-11.0)
[2019-02-09 05:02] LABS: POSITIVE COUNT NO; POSITIVE DIFFERENTIAL NO; POSITIVE MORPHOLOGY NO
[2019-02-09] MEDS: 0.9% NaCl IVPB Med Flush (250 mL) 15 ML IV ×2 (06:39→06:40)
--- NOTE | 2019-02-09 06:55 | PN_ITS ---
Subjective: Patient did okay overnight. No recurrent seizures have been reported. Patient remains somewhat confused this morning, but does follow commands and interacts appropriately. No bleeding complications have been reported. No significant ectopy has been reported. Patient does remain on room air. General: Alert, No apparent distress, Confused, Disoriented, - - Somewhat slow to respond, but appropriate HEENT: Atraumatic, PERRLA, EOMI, Normocephalic, - - No scleral icterus or injection noted. Oral: Moist Mucosa, No Gingival or Mucosal Lesions/ Ulcerations Neck: Supple, No JVD, No Nodes, Trachea Midline Lungs: Clear to auscultation, Normal air movement, No rhonchi, No wheeze, No rales Cardiovascular: Regular rate, Regular Rhythm, Normal S1, Normal S2, No murmurs, No rub noted, No Gallop Abdomen: Bowel Sounds Present, Soft, Non Tender, Non-Distended Extremities: No clubbing, No cyanosis, No edema, Capillary Refill Less than 3 Seconds Skin: No rashes, No breakdown Musculoskeletal: No Tenderness to Palpation of Joints or Extremities Lymphatic: No Cervical, Supraclavicular, or Inguinal Adenopathy Neurological: Cranial nerves II-XII grossly intact, Neuro grossly intact, Motor Exam 5/5 strength throughout Psych/Mental Status: Appropriate, Flat Affect Vital Signs Temp Pulse Resp BP Pulse Ox 36.7 C 107 H 21 H 110/70 96 02/09/19 04:00 02/09/19 06:00 02/09/19 06:00 02/09/19 06:00 02/09/19 06:00 Oxygen Delivery Method Room Air Weight: 78.8 kg Body Mass Index (BMI) 28.8 Finger Stick Blood Glucose 97 Intake and Output for Last 24 Hours 02/07/19 02/08/19 02/09/19 23:59 23:59 23:59 Intake Total 812 / 812 654.2 / 674.2 Output Total 500 / 500 1100 / 1400 750 / 750 Balance 312 / 312 -445.8 / -725.8 -730 / -730 Labs (Last 48 Hours) 02/07/19 02/07/19 02/07/19 11:20 11:20 13:00 WBC 8.3 RBC 3.72 L Hgb 11.3 L Hct 32.2 L MCV 86.6 MCH 30.4 MCHC 35.1 RDW 13.7 RDW Differential 43.5 Plt Count 276 MPV 8.5 Immature Gran % (Auto) 0.400 Neut % (Auto) 52.7 Lymph % (Auto) 19.2 [place] % (Auto) 18.8 H Eos % (Auto) 8.2 H Baso % (Auto) 0.7 Absolute Neuts (auto) 4.4 Absolute Lymphs (auto) 1.59 Total Counted Not Reportable Sodium 115 L* Potassium 3.2 L Chloride 83 L Carbon Dioxide 22.0 Anion Gap 10 BUN 5 L Creatinine 0.57 Estim Creat Clear Calc 94.44 Est GFR (MDRD) Af Amer 139 Est GFR (MDRD) Non-Af 115 BUN/Creatinine Ratio 8.8 L Glucose 93 Serum Osmolality Calcium 7.7 L Phosphorus Magnesium Total Bilirubin 0.80 Direct Bilirubin 0.23 AST 24 ALT 10 L Alkaline Phosphatase 62 Troponin I 1.450 H* Total Protein 5.8 L Albumin 2.8 L Globulin 3.0 Lipase 203 Urine Color Yellow Urine Clarity Cloudy Urine pH 5.0 Ur Specific [place] 1.025 Urine Protein 15 H Urine Glucose (UA) Normal Urine Ketones 150 H Urine Occult Blood 250 H Urine Nitrite Negative Urine Bilirubin Negative Urine Urobilinogen Normal Ur Leukocyte Esterase 500 H Urine RBC 10-25 SEEN Urine WBC 5-10 SEEN Ur Squamous Epith Cells 0-5 SEEN Urine Bacteria 2+ Urine Mucus RARE Urine Osmolality Ur Random Sodium 02/07/19 02/07/19 02/07/19 15:15 15:15 15:15 WBC RBC Hgb Hct MCV MCH MCHC RDW RDW Differential Plt Count MPV Immature Gran % (Auto) Neut % (Auto) Lymph % (Auto) [place] % (Auto) Eos % (Auto) Baso % (Auto) Absolute Neuts (auto) Absolute Lymphs (auto) Total Counted Sodium 118 L* Potassium Chloride Carbon Dioxide Anion Gap BUN Creatinine Estim Creat Clear Calc Est GFR (MDRD) Af Amer Est GFR (MDRD) Non-Af BUN/Creatinine Ratio Glucose Serum Osmolality Calcium Phosphorus Magnesium 1.3 L Total Bilirubin Direct Bilirubin AST ALT Alkaline Phosphatase Troponin I 1.200 H* Total Protein Albumin Globulin Lipase Urine Color Urine Clarity Urine pH Ur Specific [place] Urine Protein Urine Glucose (UA) Urine Ketones Urine Occult Blood Urine Nitrite Urine Bilirubin Urine Urobilinogen Ur Leukocyte Esterase Urine RBC Urine WBC Ur Squamous Epith Cells Urine Bacteria Urine Mucus Urine Osmolality Ur Random Sodium 02/07/19 02/07/19 02/07/19 16:20 21:00 21:00 WBC RBC Hgb Hct MCV MCH MCHC RDW RDW Differential Plt Count MPV Immature Gran % (Auto) Neut % (Auto) Lymph % (Auto) [place] % (Auto) Eos % (Auto) Baso % (Auto) Absolute Neuts (auto) Absolute Lymphs (auto) Total Counted Sodium 118 L* 120 L Potassium 3.6 Chloride 91 L Carbon Dioxide 20.0 L Anion Gap 9 BUN 3 L Creatinine 0.48 L Estim Creat Clear Calc 112.15 Est GFR (MDRD) Af Amer 169 Est GFR (MDRD) Non-Af 140 BUN/Creatinine Ratio 6.2 L Glucose 68 L Serum Osmolality Calcium 7.4 L Phosphorus Magnesium Total Bilirubin Direct Bilirubin AST ALT Alkaline Phosphatase Troponin I 1.090 H* Total Protein Albumin Globulin Lipase Urine Color Urine Clarity Urine pH Ur Specific [place] Urine Protein Urine Glucose (UA) Urine Ketones Urine Occult Blood Urine Nitrite Urine Bilirubin Urine Urobilinogen Ur Leukocyte Esterase Urine RBC Urine WBC Ur Squamous Epith Cells Urine Bacteria Urine Mucus Urine Osmolality Ur Random Sodium 02/08/19 02/08/19 02/08/19 03:45 03:45 03:45 WBC 7.5 RBC 3.34 L Hgb 10.2 L Hct 29.2 L MCV 87.4 MCH 30.5 MCHC 34.9 RDW 13.4 RDW Differential 41.6 Plt Count 296 MPV 8.9 Immature Gran % (Auto) 0.300 Neut % (Auto) 57.3 Lymph % (Auto) 18.0 L [place] % (Auto) 17.1 H Eos % (Auto) 6.8 H Baso % (Auto) 0.5 Absolute Neuts (auto) 4.3 Absolute Lymphs (auto) 1.35 Total Counted Not Reportable Sodium 123 L Potassium 3.8 Chloride 90 L Carbon Dioxide 18.0 L Anion Gap 15 BUN 4 L Creatinine 0.48 L Estim Creat Clear Calc 112.15 Est GFR (MDRD) Af Amer 171 Est GFR (MDRD) Non-Af 141 BUN/Creatinine Ratio 8.4 L Glucose 55 L Serum Osmolality Calcium 7.6 L Phosphorus 2.8 Magnesium 2.9 H Total Bilirubin Direct Bilirubin AST ALT Alkaline Phosphatase Troponin I Total Protein Albumin Globulin Lipase Urine Color Urine Clarity Urine pH Ur Specific [place] Urine Protein Urine Glucose (UA) Urine Ketones Urine Occult Blood Urine Nitrite Urine Bilirubin Urine Urobilinogen Ur Leukocyte Esterase Urine RBC Urine WBC Ur Squamous Epith Cells Urine Bacteria Urine Mucus Urine Osmolality Ur Random Sodium 02/08/19 02/08/19 02/08/19 08:15 09:44 09:44 WBC RBC Hgb Hct MCV MCH MCHC RDW RDW Differential Plt Count MPV Immature Gran % (Auto) Neut % (Auto) Lymph % (Auto) [place] % (Auto) Eos % (Auto) Baso % (Auto) Absolute Neuts (auto) Absolute Lymphs (auto) Total Counted Sodium Potassium Chloride Carbon Dioxide Anion Gap BUN Creatinine Estim Creat Clear Calc Est GFR (MDRD) Af Amer Est GFR (MDRD) Non-Af BUN/Creatinine Ratio Glucose Serum Osmolality 239 L Calcium Phosphorus Magnesium Total Bilirubin Direct Bilirubin AST ALT Alkaline Phosphatase Troponin I Total Protein Albumin Globulin Lipase Urine Color Urine Clarity Urine pH Ur Specific [place] Urine Protein Urine Glucose (UA) Urine Ketones Urine Occult Blood Urine Nitrite Urine Bilirubin Urine Urobilinogen Ur Leukocyte Esterase Urine RBC Urine WBC Ur Squamous Epith Cells Urine Bacteria Urine Mucus Urine Osmolality 562 Ur Random Sodium 122 02/08/19 02/09/19 02/09/19 14:15 04:10 04:10 WBC 6.7 RBC 3.36 L Hgb 10.3 L Hct 29.3 L MCV 87.2 MCH 30.7 MCHC 35.2 RDW 14.2 RDW Differential 45.2 H Plt Count 298 MPV 8.7 Immature Gran % (Auto) 0.200 Neut % (Auto) 46.0 L Lymph % (Auto) 21.8 [place] % (Auto) 14.6 H Eos % (Auto) 16.5 H Baso % (Auto) 0.9 Absolute Neuts (auto) 3.1 Absolute Lymphs (auto) 1.45 Total Counted Not Reportable Sodium 121 L 124 L Potassium 3.7 Chloride 91 L Carbon Dioxide 21.0 Anion Gap 12 BUN 3 L Creatinine 0.40 L Estim Creat Clear Calc 134.58 Est GFR (MDRD) Af Amer 207 Est GFR (MDRD) Non-Af 171 BUN/Creatinine Ratio 7.4 L Glucose 74 Serum Osmolality Calcium 7.7 L Phosphorus 2.3 L Magnesium 1.5 L Total Bilirubin Direct Bilirubin AST ALT Alkaline Phosphatase Troponin I Total Protein Albumin Globulin Lipase Urine Color Urine Clarity Urine pH Ur Specific [place] Urine Protein Urine Glucose (UA) Urine Ketones Urine Occult Blood Urine Nitrite Urine Bilirubin Urine Urobilinogen Ur Leukocyte Esterase Urine RBC Urine WBC Ur Squamous Epith Cells Urine Bacteria Urine Mucus Urine Osmolality Ur Random Sodium Microbiology 02/07/19 13:00 Urine Catheter - Catheter Urine Culture - Preliminary Mixed Gram Positive Organisms Medical Necessity - Tobacco Use Smoking Status: Former smoker Assessment/Plan All Active Problems (Last Updated 02/07/19 @ 14:25 by Pan Boggs MD) Non-ST elevation [place] (NSTEMI) (Acute) Encephalopathy (Acute) Severe hyponatremia (Acute) RECOMMENDATIONS: 1. Continue fluid restriction 2. Aggressive electrolyte repletion. 3. Await cardiology decision on intervention 4. Await echocardiogram 5. Continue systemic anticoagulation with Savaysa, per home regimen. 6. Encourage incentive spirometer use and mobilize patient as tolerated. 7. Continue antibiotics over concerns for potential cystitis. 8. Okay to leave the intensive care unit from my perspective IMPRESSIONS: 1. Symptomatic hyponatremia secondary to SIADH in the setting of underlying lung cancer Patient's laboratory work-up was consistent with SIADH. Patient did receive hypertonic saline previously, but sodium levels appear to be acceptable at this time. Patient is on a fluid restriction. Patient can continue on the demeclocycline as an outpatient. Continue with seizure precautions until sodium level improves. 2. Hypokalemia/hypomagnesemia Aggressive electrolyte repletion as indicated. Repletion has been ordered 3. Extensive stage small cell lung cancer Currently following with Dr. Huggins of Oncology. Reassessment of disease status is currently being undertaken on an outpatient basis. The patient was placed on Keytruda in October 2018 but had a subsequent decline in her performance status along with weight loss and lower extremity edema. An echocardiogram is currently pending. She did have pulmonary hypertension noted on echo several years ago. Echocardiogram is currently pending. 4. Non-ST segment elevation CA Cardiology is currently consulted. Echocardiogram is pending. 5. Personal history of malignancy induced venous thromboembolic disease Continue baseline systemic anticoagulation with Savaysa as ordered. Code Visit Inpatient E&M: 20773 Subs Hosp L2
--- NOTE | 2019-02-09 08:54 | PN.CARD_ITS ---
Subjectve: Patient seen and evaluated. Appears to be stable at this time. Denies any chest pain. Does not feel any palpitations. Objective: Vital Signs Temp Pulse Resp BP Pulse Ox 98.7 F 134 H 18 121/88 H 96 02/09/19 07:00 02/09/19 07:00 02/09/19 07:00 02/09/19 07:00 02/09/19 07:00 Oxygen Delivery Method Room Air Weight: 173 lb 11.588 oz Body Mass Index (BMI) 28.8 Finger Stick Blood Glucose 97 Intake and Output for Last 24 Hours 02/07/19 02/08/19 02/09/19 23:59 23:59 23:59 Intake Total 812 / 812 654.2 / 674.2 Output Total 500 / 500 1100 / 1400 750 / 750 Balance 312 / 312 -445.8 / -725.8 -730 / -730 General: Awake, Alert, Oriented x 3 HEENT: PERRL, EOMI, Sclera Non Icteric Neck: Supple, Good ROM, No Lymph Node Enlargement Lungs: Clear to auscultation Cardiovascular: Regular Rhythm, Premature Ectopic Beats, Normal S1, Normal S2, No Murmurs, No Rubs, No Gallops Vascular: No Carotid Bruits, Normal Femoral Pulses, Normal Radial Pulses, Normal Dorsalis Pedal Pulse, Normal Posterior Tibial Pulses Abdomen: Bowel Sounds Present, Soft, Non Tender, No HSM, No Organomegaly Extremities: No Cyanosis, No Clubbing, No edema Musculoskeletal: No Erythema Skin: No Rashes Lymphatic: No Lymph Node Enlargement Neurological: No Focal Motor or Sensory Deficit Psych/Mental Status: Appropriate 02/08/19 14:15: Sodium 121 L 02/09/19 04:10: WBC 6.7, RBC 3.36 L, Hgb 10.3 L, Hct 29.3 L, MCV 87.2, MCH 30.7, MCHC 35.2, RDW 14.2, RDW Differential 45.2 H, Plt Count 298, MPV 8.7, Immature Gran % (Auto) 0.200, Neut % (Auto) 46.0 L, Lymph % (Auto) 21.8, [place] % (Auto) 14.6 H, Eos % (Auto) 16.5 H, Baso % (Auto) 0.9, Absolute Neuts (auto) 3.1, Total Counted Not Reportable 02/09/19 04:10: Sodium 124 L, Potassium 3.7, Chloride 91 L, Carbon Dioxide 21.0, Anion Gap 12, BUN 3 L, Creatinine 0.40 L, Est GFR (MDRD) Af Amer 207, Est GFR (MDRD) Non-Af 171, BUN/Creatinine Ratio 7.4 L, Glucose 74, Calcium 7.7 L, Phosphorus 2.3 L, Magnesium 1.5 L Rhythm: EKG: ECHO: Stress Test: Cardiac Cath: PCI: CT Surgery: Holter monitor: EPS: PPM: CXR: Chest CT Scan: Medical Necessity - Tobacco Use Smoking Status: Former smoker Assessment/Plan 1. Non-ST elevation myocardial infarction * Patient presents with generalized weakness and confusion and is noted to have abnormal cardiac enzymes. She had no EKG changes. * At this time my recommendation will be to obtain an echocardiogram to assess her left ventricular function and guide her overall treatment. * My recommendation will be to pursue conservative management at this time especially in the throes of her metastatic lung carcinoma. Depending on her overall prognosis from the standpoint further recommendations will be made. * She may need re-stratification with stress test before discharge. * Continue with aggressive risk factor modification 2. Recent pulmonary embolism * Appears to have had a recent pulmonary embolism then she remains on anticoagulation. I would not like to interrupt the above especially in light of her very prothrombotic state. * * Thank you for allowing me to participate in the care of your patient. Please don't hesitate to call if any issues arise
--- NOTE | 2019-02-09 09:52 | CASEMGMT ---
RN CM Assessment Presentation: NSTEMI, SIADH, Na 118, Hx of SCLC Intro role of CM and purpose of RN CM assessment.to patient and her . Pt is confused, able to participate minimally in assessment. is caregiver and is able to give pertinent informaiton. Demographics, PCP and Pharmacy verified. Pt lives at home with her and has been declining over past weeks. Confusion recent occurrence. is main caregiver for patient. Emotional support given to re: caregiving. States presently he is doing fine, but has concerns re: dc if pt continues to have confusion. PCP: Dr. Helms Specialists: Dr. Huggins, oncology; Dr. Aldana, cardiology. [facility] [place] Insurance: [employer] Prescription Benefit: yes, states no difficulty with medications cost @ this time. LNOK: , Javier Hall Living Arrangements: Lives in 2 story home. states pt can do stairs, however they often sleep on the couches on main floor. Pt was independent in ADL's, but if assist is needed, is able to help her. 3 steps into home. Transportation: drives. Pt had seizure in past and does driving since. DME: walker, rollator HHC: none. RN CM discussed Home Health on dc, including choices for area. states he would like to wait and see how pt is doing prior to deciding. - Also discussed SNF if needed. Again prefers to wait until pt's mentation improves to decide on dc needs. Palliative Care: Information discussed re: Palliative Care and brochure given. to review and will let nursing know if he would like more information. Patient DC goals: Home DC PLAN: Options re: dc given to and patient. would like to evaluate needs closer to dc and will continue to work with CM for dc planning. Rani GUYN RN ACM
[2019-02-09] MEDS: 0.9% NaCl Peripheral Flush Adult/Peds IV (11:21)
[2019-02-09] MEDS: Famotidine 20 MG Tablet PO (11:21)
[2019-02-09] MEDS: EDOXABAN TOSYLATE 60 MG TABLET PO (11:22)
[2019-02-09] MEDS: Ceftriaxone 1 GM/50 ML BAG IV (11:25)
--- NOTE | 2019-02-09 17:20 | PCM.PROGNOTE ---
Patient Problems: Active and Suspected Problems (Last Updated 02/07/19 @ 14:25 by Pan Boggs MD) Non-ST elevation [place] (NSTEMI) (Acute) Encephalopathy (Acute) Severe hyponatremia (Acute) Subjective: Patient was seen and examined today in the ICU, I talked with the patient and her who was in her room today. According to pulmonary medicine and cardiology, patient appears stable for transfer to PCU today, she is still confused-she knows she is in a hospital but she does not know which hospital it is, she cannot tell this examiner what year it is. Her answered most questions today. - Physical Exam General: Alert, Cooperative, No apparent distress, Well developed HEENT: Atraumatic, PERRLA, EOMI, Normocephalic Oral: Moist Mucosa Neck: Supple, Trachea Midline, Thyroid Normal Size and Texture Lungs: Clear to auscultation, Normal air movement, No rhonchi, No wheeze, No rales, Diminished, Rales Cardiovascular: Regular rate, Regular Rhythm, Normal S1, Normal S2, No murmurs, No Ectopic Activity Abdomen: Bowel Sounds Present, Soft, Non Tender, Non-Distended Extremities: No clubbing, No cyanosis, No edema, Capillary Refill Less than 3 Seconds Skin: No rashes, No breakdown Musculoskeletal: No Tenderness to Palpation of Joints or Extremities Neurological: Cranial nerves II-XII grossly intact, Neuro grossly intact, Sensory exam intact to light touch and pain Psych/Mental Status: Flat Affect, - - Patient is alert but confused, she is oriented as to self Vital Signs Temp Pulse Resp BP Pulse Ox 99.0 F 108 H 14 106/66 97 02/09/19 16:49 02/09/19 16:53 02/09/19 16:49 02/09/19 16:49 02/09/19 16:49 Oxygen Delivery Method Room Air Weight: 78.8 kg Body Mass Index (BMI) 28.8 Finger Stick Blood Glucose 97 Intake and Output for Last 24 Hours 02/07/19 02/08/19 02/09/19 23:59 23:59 23:59 Intake Total 812 / 812 654.2 / 674.2 785 / 785 Output Total 500 / 500 1100 / 1400 850 / 850 Balance 312 / 312 -445.8 / -725.8 -65 / -65 Microbiology Past 72 Hours 06/22/19 13:00 Urine Culture - Preliminary Urine Catheter - Catheter Mixed Gram Positive Organisms Laboratory Tests Past 24 Hrs 02/09/19 02/09/19 04:10 04:10 WBC 6.7 RBC 3.36 L Hgb 10.3 L Hct 29.3 L MCV 87.2 MCH 30.7 MCHC 35.2 RDW 14.2 RDW Differential 45.2 H Plt Count 298 MPV 8.7 Immature Gran % (Auto) 0.200 Neut % (Auto) 46.0 L Lymph % (Auto) 21.8 [place] % (Auto) 14.6 H Eos % (Auto) 16.5 H Baso % (Auto) 0.9 Absolute Neuts (auto) 3.1 Absolute Lymphs (auto) 1.45 Total Counted Not Reportable Sodium 124 L Potassium 3.7 Chloride 91 L Carbon Dioxide 21.0 Anion Gap 12 BUN 3 L Creatinine 0.40 L Estim Creat Clear Calc 134.58 Est GFR (MDRD) Af Amer 207 Est GFR (MDRD) Non-Af 171 BUN/Creatinine Ratio 7.4 L Glucose 74 Calcium 7.7 L Phosphorus 2.3 L Magnesium 1.5 L Medical Necessity - Tobacco Use Smoking Status: Former smoker Assessment/Plan All Active Problems (Last Updated 02/07/19 @ 14:25 by Pan Boggs MD) Non-ST elevation [place] (NSTEMI) (Acute) Encephalopathy (Acute) Severe hyponatremia (Acute) #1 metabolic encephalopathy secondary to hyponatremia from small cell lung cancer-patient is stable for transfer to PCU #2 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
[2019-02-09] MEDS: Atorvastatin Calcium 40 MG Tablet PO (20:57)
[2019-02-10] VITALS (10 sets, daily range): BP systolic 104–109; BP diastolic 52–62; PULSE 92–109; RESP 14–18; TEMP 36.9–37.3; O2SAT 93–98
[2019-02-10 06:59] LABS: Anion Gap 10 (5-15); BUN 3 mg/dL (7-18); Calcium,Total 7.8 mg/dL (8.5-10.1); Chloride 91 mmol/L (98-107); Creatinine, Serum 0.43 mg/dL (0.55-1.02); EST Glomerular Filtration Rate 160 mL/min (>60); Est Glom Filt Rate - Afr Amer 193 mL/min (>60); Estimated Creatinine Clearance 125.19 ml/min; Glucose 60 mg/dL (74-106); Potassium 3.5 mmol/L (3.5-5.1); Sodium Level 121 mmol/L (136-145)
--- NOTE | 2019-02-10 08:18 | PN.CARD_ITS ---
Subjectve: Patient seen and evaluated. Appears to be doing better at this morning. No obvious cardiac complaints. Objective: Vital Signs Temp Pulse Resp BP Pulse Ox 98.5 F 101 H 16 104/59 L 95 02/10/19 05:40 02/10/19 07:28 02/10/19 05:40 02/10/19 05:40 02/10/19 05:40 Oxygen Delivery Method Room Air Weight: 171 lb 1.259 oz Body Mass Index (BMI) 28.8 Finger Stick Blood Glucose 97 Intake and Output for Last 24 Hours 02/08/19 02/09/19 02/10/19 23:59 23:59 23:59 Intake Total 654.2 / 674.2 1025 / 1025 Output Total 1100 / 1400 850 / 850 Balance -445.8 / -725.8 175 / 175 General: Awake, Alert, Oriented x 3 HEENT: PERRL, EOMI, Sclera Non Icteric Neck: Supple, Good ROM, No Lymph Node Enlargement Lungs: Clear to auscultation Cardiovascular: Regular Rhythm, Normal S1, Normal S2, No Murmurs, No Rubs, No Gallops Vascular: No Carotid Bruits, Normal Femoral Pulses, Normal Radial Pulses, Normal Dorsalis Pedal Pulse, Normal Posterior Tibial Pulses Abdomen: Bowel Sounds Present, Soft, Non Tender, No HSM, No Organomegaly Extremities: No Cyanosis, No Clubbing, No edema Neurological: No Focal Motor or Sensory Deficit 02/10/19 06:15: Sodium 121 L, Potassium 3.5, Chloride 91 L, Carbon Dioxide 20.0 L, Anion Gap 10, BUN 3 L, Creatinine 0.43 L, Est GFR (MDRD) Af Amer 193, Est GFR (MDRD) Non-Af 160, BUN/Creatinine Ratio 7.0 L, Glucose 60 L, Calcium 7.8 L Rhythm: EKG: ECHO: Stress Test: Cardiac Cath: PCI: CT Surgery: Holter monitor: EPS: PPM: CXR: Chest CT Scan: Medical Necessity - Tobacco Use Smoking Status: Former smoker Assessment/Plan 1. Non-ST elevation myocardial infarction * Patient presents with generalized weakness and confusion and is noted to have abnormal cardiac enzymes. She had no EKG changes. * * My recommendation will be to pursue conservative management at this time especially in the throes of her metastatic lung carcinoma. Depending on her overall prognosis from the standpoint further recommendations will be made. * She may need re-stratification with stress test before discharge. * Continue with aggressive risk factor modification * Echocardiogram demonstrated overall preserved left ventricular systolic function with no obvious elevation in right heart pressures. 2. Recent pulmonary embolism * Appears to have had a recent pulmonary embolism then she remains on anticoagulation. I would not like to interrupt the above especially in light of her very prothrombotic state. * * Thank you for allowing me to participate in the care of your patient. Please don't hesitate to call if any issues arise
[2019-02-10] MEDS: Famotidine 20 MG Tablet PO (08:42)
[2019-02-10] MEDS: EDOXABAN TOSYLATE 60 MG TABLET PO (08:42)
[2019-02-10] MEDS: 0.9% NaCl Peripheral Flush Adult/Peds IV (09:59)
[2019-02-10] MEDS: Ceftriaxone 1 GM/50 ML BAG IV (09:59)
--- NOTE | 2019-02-10 10:20 | PCM.PN.INT ---
Subjective: Patient did okay overnight. No acute issues were reported. Patient is more alert this morning, but at the bedside feels that she is still somewhat confused. No seizure activity has been reported. General: Alert, Oriented x3, Cooperative, No apparent distress, - - Some difficulty on more complex mental tasks. HEENT: Atraumatic, PERRLA, EOMI, Normocephalic, - - No scleral icterus or injection noted. Oral: Moist Mucosa, No Gingival or Mucosal Lesions/ Ulcerations Neck: Supple, No JVD, No Nodes, Trachea Midline Lungs: Clear to auscultation, Normal air movement, No rhonchi, No wheeze, No rales Cardiovascular: Regular rate, Regular Rhythm, Normal S1, Normal S2, No murmurs, No rub noted, No Gallop Abdomen: Bowel Sounds Present, Soft, Non Tender, Non-Distended Extremities: No clubbing, No cyanosis, No edema, Capillary Refill Less than 3 Seconds Skin: No rashes, No breakdown Musculoskeletal: No Tenderness to Palpation of Joints or Extremities Lymphatic: No Cervical, Supraclavicular, or Inguinal Adenopathy Neurological: Cranial nerves II-XII grossly intact, Neuro grossly intact, Motor Exam 5/5 strength throughout Psych/Mental Status: Flat Affect - Improved from previous Vital Signs Temp Pulse Resp BP Pulse Ox 36.9 C 101 H 16 104/59 L 93 02/10/19 05:40 02/10/19 07:28 02/10/19 05:40 02/10/19 05:40 02/10/19 08:00 Oxygen Delivery Method Room Air Weight: 77.6 kg Body Mass Index (BMI) 28.8 Finger Stick Blood Glucose 97 Intake and Output for Last 24 Hours 02/08/19 02/09/19 02/10/19 23:59 23:59 23:59 Intake Total 654.2 / 674.2 1025 / 1025 Output Total 1100 / 1400 850 / 850 Balance -445.8 / -725.8 175 / 175 Labs (Last 48 Hours) 02/08/19 02/09/19 02/09/19 14:15 04:10 04:10 WBC 6.7 RBC 3.36 L Hgb 10.3 L Hct 29.3 L MCV 87.2 MCH 30.7 MCHC 35.2 RDW 14.2 RDW Differential 45.2 H Plt Count 298 MPV 8.7 Immature Gran % (Auto) 0.200 Neut % (Auto) 46.0 L Lymph % (Auto) 21.8 [place] % (Auto) 14.6 H Eos % (Auto) 16.5 H Baso % (Auto) 0.9 Absolute Neuts (auto) 3.1 Absolute Lymphs (auto) 1.45 Total Counted Not Reportable Sodium 121 L 124 L Potassium 3.7 Chloride 91 L Carbon Dioxide 21.0 Anion Gap 12 BUN 3 L Creatinine 0.40 L Estim Creat Clear Calc 134.58 Est GFR (MDRD) Af Amer 207 Est GFR (MDRD) Non-Af 171 BUN/Creatinine Ratio 7.4 L Glucose 74 Calcium 7.7 L Phosphorus 2.3 L Magnesium 1.5 L 02/10/19 06:15 WBC RBC Hgb Hct MCV MCH MCHC RDW RDW Differential Plt Count MPV Immature Gran % (Auto) Neut % (Auto) Lymph % (Auto) [place] % (Auto) Eos % (Auto) Baso % (Auto) Absolute Neuts (auto) Absolute Lymphs (auto) Total Counted Sodium 121 L Potassium 3.5 Chloride 91 L Carbon Dioxide 20.0 L Anion Gap 10 BUN 3 L Creatinine 0.43 L Estim Creat Clear Calc 125.19 Est GFR (MDRD) Af Amer 193 Est GFR (MDRD) Non-Af 160 BUN/Creatinine Ratio 7.0 L Glucose 60 L Calcium 7.8 L Phosphorus Magnesium Microbiology 02/07/19 13:00 Urine Catheter - Catheter Urine Culture - Preliminary Gram positive pattie Gram positive pattie#2 Medical Necessity - Tobacco Use Smoking Status: Former smoker Assessment/Plan All Active Problems (Last Updated 02/07/19 @ 14:25 by Pan Boggs MD) Non-ST elevation [place] (NSTEMI) (Acute) Encephalopathy (Acute) Severe hyponatremia (Acute) RECOMMENDATIONS: 1. Continue fluid restriction 2. No indication for hypertonic saline at this time 3. Agree with cardiology on conservative risk factor modification 4. Increase activity as tolerated 5. Continue systemic anticoagulation with Savaysa, per home regimen. 6. Encourage incentive spirometer use and mobilize patient as tolerated. 7. Continue antibiotics over concerns for potential cystitis. 8. Okay to leave the intensive care unit from my perspective IMPRESSIONS: 1. Symptomatic hyponatremia secondary to SIADH in the setting of underlying lung cancer Patient's laboratory work-up was consistent with SIADH. Patient did receive hypertonic saline previously, but sodium levels and symptomatology do not require this reinitiated. Patient is on a fluid restriction. Patient can continue on the demeclocycline as an outpatient. Continue with seizure precautions until sodium level improves. 2. Hypokalemia/hypomagnesemia Aggressive electrolyte repletion as indicated. Repletion has been ordered 3. Extensive stage small cell lung cancer Currently following with Dr. Huggins of Oncology. Reassessment of disease status is currently being undertaken on an outpatient basis. The patient was placed on Keytruda in October 2018 but had a subsequent decline in her performance status along with weight loss and lower extremity edema. An echocardiogram is currently pending. She did have pulmonary hypertension noted on echo several years ago. Echocardiogram was relatively unremarkable except for diastolic dysfunction. Pulmonary artery pressures are slightly elevated. 4. Non-ST segment elevation [place] Cardiology is currently consulted. No intervention planned at this time. 5. Personal history of malignancy induced venous thromboembolic disease Continue baseline systemic anticoagulation with Savaysa as ordered. Code Visit Inpatient E&M: 61749 Subs Hosp L2
--- NOTE | 2019-02-10 16:00 | CASEMGMT ---
PRINCE MONK Note: PT/OT notes reviewed. Recommendation is for continued therapy. PRINCE MONK spoke with who feels pt is improving and is still not sure if HHC is needed. Would like PRINCE MONK to review after PT/OT tomorrow. -[facility] is [facility]. Rani BRUNER RN ACM
[2019-02-10] MEDS: Atorvastatin Calcium 40 MG Tablet PO (20:26)
--- NOTE | 2019-02-10 20:26 | PCM.PROGNOTE ---
Patient Problems: Active and Suspected Problems (Last Updated 02/07/19 @ 14:25 by Pan Boggs MD) Non-ST elevation [place] (NSTEMI) (Acute) Encephalopathy (Acute) Severe hyponatremia (Acute) Subjective: Patient was seen and examined today, she remains confused, I talked at length with her who is in the room tonight. Patient is scheduled to have an outpatient MRI of the brain tomorrow, I decided to order it while she is in the hospital in case we find she has metastatic lung cancer to the brain. Patient's sodium is still low today, she remains on meclocycline, I have reordered labs for the morning. - Physical Exam General: Alert, Cooperative, Well developed, Confused HEENT: Atraumatic, PERRLA, EOMI, Normocephalic Oral: Moist Mucosa Neck: Supple, Trachea Midline, Thyroid Normal Size and Texture Lungs: Clear to auscultation, Normal air movement, No rhonchi, No wheeze, No rales Cardiovascular: Regular rate, Regular Rhythm, Normal S1, Normal S2, No murmurs Abdomen: Bowel Sounds Present, Soft, Non Tender, Non-Distended Extremities: No edema, Capillary Refill Less than 3 Seconds Skin: No rashes, No breakdown Musculoskeletal: No Tenderness to Palpation of Joints or Extremities Neurological: Cranial nerves II-XII grossly intact, Neuro grossly intact, Sensory exam intact to light touch and pain Psych/Mental Status: Flat Affect, - - Patient is alert but confused Vital Signs Temp Pulse Resp BP Pulse Ox 98.8 F 99 14 106/62 98 02/10/19 16:30 02/10/19 16:30 02/10/19 16:30 02/10/19 16:30 02/10/19 16:30 Oxygen Delivery Method Room Air Weight: 77.6 kg Body Mass Index (BMI) 28.8 Finger Stick Blood Glucose 97 Intake and Output for Last 24 Hours 02/08/19 02/09/19 02/10/19 23:59 23:59 23:59 Intake Total 654.2 / 674.2 1025 / 1025 280 / 280 Output Total 1100 / 1400 850 / 850 Balance -445.8 / -725.8 175 / 175 280 / 280 Microbiology Past 72 Hours 02/07/19 13:00 Urine Culture - Preliminary Urine Catheter - Catheter Gram positive pattie Gram positive pattie#2 Laboratory Tests Past 24 Hrs 02/10/19 06:15 Sodium 121 L Potassium 3.5 Chloride 91 L Carbon Dioxide 20.0 L Anion Gap 10 BUN 3 L Creatinine 0.43 L Estim Creat Clear Calc 125.19 Est GFR (MDRD) Af Amer 193 Est GFR (MDRD) Non-Af 160 BUN/Creatinine Ratio 7.0 L Glucose 60 L Calcium 7.8 L Medical Necessity - Tobacco Use Smoking Status: Former smoker Assessment/Plan All Active Problems (Last Updated 02/07/19 @ 14:25 by Pan Boggs MD) Non-ST elevation [place] (NSTEMI) (Acute) Encephalopathy (Acute) Severe hyponatremia (Acute) #1 metabolic encephalopathy secondary to hyponatremia from small cell lung cancer-continue to monitor labs, MRI of the brain is ordered for tomorrow #2 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
[2019-02-11 03:00] VITALS: PULSE 95
[2019-02-11 03:15] VITALS: BP 103/57; PULSE 98; RESP 16; TEMP 36.7; O2SAT 97
[2019-02-11 06:08] LABS: Anion Gap 11 (5-15); BUN 6 mg/dL (7-18); BUN/Creat Ratio 14.5 RATIO (10-20); Chloride 92 mmol/L (98-107); Creatinine, Serum 0.41 mg/dL (0.55-1.02); EST Glomerular Filtration Rate 167 mL/min (>60); Est Glom Filt Rate - Afr Amer 201 mL/min (>60); Glucose 76 mg/dL (74-106); Potassium 3.6 mmol/L (3.5-5.1); Sodium Level 125 mmol/L (136-145)
[2019-02-11 07:41] VITALS: O2SAT 96
[2019-02-11 07:55] VITALS: PULSE 97
--- NOTE | 2019-02-11 08:42 | PCM.PN.PUL ---
Patient Problems: Active and Suspected Problems (Last Updated 02/07/19 @ 14:25 by Pan Boggs MD) Non-ST elevation [place] (NSTEMI) (Acute) Encephalopathy (Acute) Severe hyponatremia (Acute) Subjective: Patient did well overnight. No seizure activity has been reported. Patient's reports that she is much more oriented compared to previous. Patient with no new complaints this morning Objective: MRI has been completed, but results are not back yet. - Physical Exam General: Alert, Oriented x3, Cooperative, No apparent distress, - - Speaking in full sentences. HEENT: Atraumatic, PERRLA, EOMI, Normocephalic, - - No scleral icterus or injection noted. Oral: Moist Mucosa, No Gingival or Mucosal Lesions/ Ulcerations Neck: Supple, No JVD, No Nodes Lungs: Clear to auscultation, No rhonchi, No wheeze, No rales Cardiovascular: Regular rate, Regular Rhythm, Normal S1, Normal S2, No murmurs, No rub noted, No Gallop Abdomen: Bowel Sounds Present, Soft, Non Tender, Non-Distended Extremities: No clubbing, No cyanosis, No edema Skin: No rashes, No breakdown Musculoskeletal: No Tenderness to Palpation of Joints or Extremities Lymphatic: No Cervical, Supraclavicular, or Inguinal Adenopathy Neurological: Cranial nerves II-XII grossly intact, Neuro grossly intact Psych/Mental Status: Alert and oriented to time, place, person, mood and affect Vital Signs Temp Pulse Resp BP Pulse Ox 36.7 C 97 16 103/57 L 96 02/11/19 03:15 02/11/19 07:55 02/11/19 03:15 02/11/19 03:15 02/11/19 07:41 Oxygen Delivery Method Room Air Weight: 74.8 kg Body Mass Index (BMI) 28.8 Finger Stick Blood Glucose 97 Intake and Output for Last 24 Hours 02/09/19 02/10/19 02/11/19 23:59 23:59 23:59 Intake Total 1025 / 1025 280 / 340 60 / 60 Output Total 850 / 850 Balance 175 / 175 280 / 340 60 / 60 Microbiology Past 72 Hours 02/07/19 13:00 Urine Culture - Preliminary Urine Catheter - Catheter Gram positive pattie Gram positive pattie#2 Laboratory Tests Past 24 Hrs 02/11/19 05:20 Sodium 125 L Potassium 3.6 Chloride 92 L Carbon Dioxide 22.0 Anion Gap 11 BUN 6 L Creatinine 0.41 L Estim Creat Clear Calc 131.30 Est GFR (MDRD) Af Amer 201 Est GFR (MDRD) Non-Af 167 BUN/Creatinine Ratio 14.5 Glucose 76 Calcium 8.0 L Medical Necessity - Tobacco Use Smoking Status: Former smoker Assessment/Plan All Active Problems (Last Updated 02/07/19 @ 14:25 by Pan Boggs MD) Non-ST elevation [place] (NSTEMI) (Acute) Encephalopathy (Acute) Severe hyponatremia (Acute) RECOMMENDATIONS: 1. Continue fluid restriction 2. No indication for hypertonic saline at this time 3. Agree with cardiology on conservative risk factor modification 4. Increase activity as tolerated 5. Continue systemic anticoagulation with Savaysa, per home regimen. 6. Encourage incentive spirometer use and mobilize patient as tolerated. 7. Continue antibiotics over concerns for potential cystitis. 8. Okay to discharge from a pulmonary/critical care perspective IMPRESSIONS: 1. Symptomatic hyponatremia secondary to SIADH in the setting of underlying lung cancer Patient's laboratory work-up was consistent with SIADH. Patient did receive hypertonic saline previously, but sodium levels and symptomatology do not require this reinitiated. Patient is on a fluid restriction. Patient can continue on the demeclocycline as an outpatient. Continue with seizure precautions until sodium level improves. Sodium level is much improved today. 2. Hypokalemia/hypomagnesemia Aggressive electrolyte repletion as indicated. Repletion has been ordered as indicated 3. Extensive stage small cell lung cancer Currently following with Dr. Huggins of Oncology. Reassessment of disease status is currently being undertaken on an outpatient basis. The patient was placed on Keytruda in October 2018 but had a subsequent decline in her performance status along with weight loss and lower extremity edema. An echocardiogram is currently pending. She did have pulmonary hypertension noted on echo several years ago. Echocardiogram was relatively unremarkable except for diastolic dysfunction. Pulmonary artery pressures are slightly elevated. 4. Non-ST segment elevation [place] Cardiology is currently consulted. No intervention planned at this time. 5. Personal history of malignancy induced venous thromboembolic disease Continue baseline systemic anticoagulation with Savaysa as ordered. Code Visit Inpatient E&M: 72738 Subs Hosp L2
[2019-02-11 09:30] VITALS: BP 128/71; PULSE 103; RESP 16; TEMP 36.7; O2SAT 95
--- NOTE | 2019-02-11 09:30 | NURSING ---
Pt just returned from MRI. [facility]SA late due to pt being at MRI.
[2019-02-11] MEDS: Famotidine 20 MG Tablet PO (09:37)
[2019-02-11] MEDS: EDOXABAN TOSYLATE 60 MG TABLET PO (09:38)
[2019-02-11] MEDS: Ceftriaxone 1 GM/50 ML BAG IV (09:44)
--- NOTE | 2019-02-11 12:32 | PCM.DC ---
- Discharge Diagnoses Current Active Problems: Current Active and Chronic Problems (Last Updated 02/07/19 @ 14:25 by Pan Boggs MD) Non-ST elevation [place] (NSTEMI) (Acute) Encephalopathy (Acute) Severe hyponatremia (Acute) You will use the following diet at home:: No restrictions Your food should be the consistency of: Regular Your liquids should be the consistency of: Regular/Thin Discharge Activity: Return to Normal Activity Weight Bearing Status: Full weight bearing Additional Instructions: DRINK NO MORE THAN 1 1/2 QUARTS OF LIQUID PER DAY. LIBERAL USE OF SALT Allergies/Adverse Reactions: Allergies No Known Allergies Allergy (Verified 02/07/19 11:02) REVIEWED ON 01-22-18 Medications to take at Discharge Lidocaine/Prilocaine [Lidocaine-Prilocaine Cream] 30 gm TP DAILY PRN PRN #1 cream..g. 10/07/17 Edoxaban Tosylate [Savaysa] 60 mg PO DAILY #30 tab 04/24/18 Demeclocycline HCl 300 mg PO DAILY 30 Days #30 tab 02/04/19 Ondansetron [Zofran Odt] 8 mg PO Q8H PRN PRN 02/07/19 Atorvastatin Calcium [Lipitor] 40 mg PO QHS #30 tab 02/11/19 Cephalexin [Keflex] 500 mg PO BID #5 cap 02/11/19 Dexamethasone [Decadron] 4 mg PO DAILY #30 tab 02/11/19 The following prescriptions were given: Dexamethasone [Decadron] 4 mg PO DAILY #30 tab Transmission Status: Received by SHAREE FERNANDEZ[address] [place] [address] Cephalexin [Keflex] 500 mg PO BID #5 cap Transmission Status: Received by SHAREE FERNANDEZ[address] [place] [address] Atorvastatin Calcium [Lipitor] 40 mg PO QHS #30 tab Transmission Status: Received by KRISSY JIM[address] [place] [address] Primary Care Physician: Andrés Helms MD [Primary Care Provider] - Please follow up with your Primary Care Physician in: in 2 weeks Test Results: Test results from this visit will be discussed in further detail at your follow-up appointment, if applicable. Please Follow Up With: Gage Huggins MD When: next week as scheduled
[2019-02-11] MEDS: 0.9% NaCl Peripheral Flush Adult/Peds IV (13:29)
--- NOTE | 2019-02-11 15:15 | CASEMGMT ---
Addendum entered by Stacey Welch 02/11/19 15:33: Plan: Pt being discharged home w/[facility] PT/OT eval and treat. Original Note: PRINCE MONK NOTE: Pt is being discharged. PT/OT notes have been reviewed. To room to talk with pt and who is at bedside. They are agreeable to [facility] for therapy and state they have no preference of [facility] agency. Call placed to [facility] and referral made. Clinical information, demographics, and Insurance information faxed to them. No return response received by the time pt ready for discharge. Call placed to [facility] and spoke with Mee. Referral made for PT/OT eval and treat. She was made aware pt is discharging today. Mee confirmed that they are able to accept pt and Start of Care will be Saturday. Pt and made aware and are agreeable. Call placed back to [facility] and referral cancelled at this time. Peter BRUNER RN, CM
--- NOTE | 2019-02-11 19:19 | MRI_ITS ---
STUDY: MRI BRAIN WITH AND WITHOUT CONTRAST REASON FOR EXAM: Female, 58 years old. Confusion with history of small cell lung cancer. TECHNIQUE: Standardized multiplanar fat and water weighted pulse sequences were obtained. 15 IV Dotarem was administered for the contrast portion of the examination. COMPARISON: 03 April 2018 MRI, 07 February 2019. FINDINGS: Normal size of the ventricles and extra-axial spaces for the patient's age. There are a limited number of small white matter hyperintensities, distributed throughout the deep white matter tracts of the cerebral hemispheres, consistent with mild chronic white matter ischemic changes. There is a area of high T2 signal within the left medial frontal lobe with a mildly rim enhancing 7 mm lesion is seen on series 10 image 16 with surrounding edema concerning for metastatic focus. There is a punctate focus of DWI signal within the cortex of the medial right frontal lobe as seen on series 4 image 25. FLAIR images demonstrate increased signal within the left greater than right limbic system which in the setting of small cell cancer may represent sequela. Neoplastic syndrome. Normal bilateral basal ganglia. Normal thalami. There is no extra-axial fluid accumulation. Normal flow voids within the major intracranial circulation suggesting patency by spin echo criteria. Normal venous enhancement. There is no enhancing intra-axial or extra-axial abnormality. Normal sella turcica, pituitary gland, infundibular stalk, optic chiasm and hypothalamus. Normal tectal plate and pineal gland. Normal midbrain, dede and medulla. Normal cerebellum. Normal basal cisterns. Normal bilateral temporal bones. Normal bilateral internal auditory canals. No demonstrated orbital abnormality, within the constraints of a routine brain study. Normal visualized paranasal sinuses. Normal calvarium and skull base. Normal visualized soft tissue structures. Normal visualized upper cervical spine. MRI/Brain W/WO Contrast IMPRESSION: 1. Left frontal rim-enhancing lesion with mild surrounding edema as seen on series 10 image 16 measuring 7 mm most concerning for focus of metastatic disease given appearance. 2. There is a punctate region of high signal within the medial right frontal cortex consistent with small embolic ischemia given appearance. Otherwise no evidence of large territorial ischemia. 3. 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 Electronically Signed: Kade Girard DO at 11:28 EDT , Service support ,
--- NOTE | 2019-02-12 08:34 | DS.PCM_ITS ---
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 #5 generalized debility #6 past history of venous thromboembolism #7 acute cystitis secondary to corynebacterium - Secondary Discharge Diagnosis Chronic Problems (Last Updated 02/07/19 @ 14:25 by Pan Boggs MD) Anemia (Chronic) Pulmonary embolism (Chronic) Chemotherapy induced neutropenia (Chronic) Lung nodule, multiple (Chronic) Regional lymph node metastasis present (Chronic) Chemotherapy management, encounter for (Chronic) Adjustment disorder (Chronic) Small cell lung cancer in adult (Chronic) Seizure disorder (Chronic) Tobacco dependence in remission (Chronic) Hospital Course and Treatment Operations: None Procedures: None Summary of Care Provided: The patient is a 58 year old F was seen in the emergency room at [facility] after being brought in by her due to mental status changes. Patient's stated the patient became lethargic and confused. She is under treatment for small cell lung cancer. Work-up in the emergency room revealed her sodium to be 115, troponin was 1.4, EKG revealed no acute injury pattern. CT of the brain was performed which showed no acute process. Patient was admitted to ICU for severe hyponatremia, metabolic encephalopathy s econdary to acute hyponatremia and an acute non-ST elevation CA. She was seen in consultation by critical care and cardiology, she received medication for correction of her sodium and cardiology felt that due to the patient's severe comorbidities, medical treatment was the most appropriate course. Echocardiogram was performed which showed a preserved ejection fraction and mild pulmonary hypertension. Patient's mental status improved slowly, she was seen in consultation by PT and OT. She was transferred to PCU and on 02/11/2019 underwent an MRI of the brain which showed a metastatic focus in the left frontal lobe. Her oncologist was notified of this by phone. On 02/11/2019, patient was seen and examined: On examination she appeared in good health and spirits. Vital signs as documented. Skin warm and dry and without overt rashes. Neck without JVD. Lungs clear. Heart exam notable for regular rhythm, normal sounds and absence of murmurs, rubs or gallops. Abdomen unremarkable and without evidence of organomegaly, masses, or abdominal aortic enlargement. Extremities nonedematous. Neuro: Cranial nerves II through XII are grossly intact, no focal motor deficits were noted, sensation to light touch and pinprick is intact. Psych: Patient is alert and oriented x3, patient has a flat affect Patient was felt to be stable for discharge to home, she was to follow-up with oncology and she would need to be set up for gamma knife, I discussed this with her oncologist and he will make arrangements for this to occur. I also discussed the patient's MRI results with her and her . - Physical Exam Vital Signs Temp Pulse Resp BP Pulse Ox 98.0 F 103 H 16 128/71 H 95 02/11/19 09:30 02/11/19 09:30 02/11/19 09:30 02/11/19 09:30 02/11/19 09:30 Oxygen Delivery Method Room Air Weight: 74.8 kg Body Mass Index (BMI) 28.8 Finger Stick Blood Glucose 97 Intake and Output for Last 24 Hours 02/10/19 02/11/19 02/12/19 23:59 23:59 23:59 Intake Total 280 / 340 230 / 230 Balance 280 / 340 230 / 230 Microbiology Past 72 Hours 02/07/19 13:00 Urine Culture - Final Urine Catheter - Catheter Corynebact. pseudodiphtheritic Discharge Activity: Return to Normal Activity Weight Bearing Status: Full weight bearing Home Medications: Medications to take at Discharge Lidocaine/Prilocaine [Lidocaine-Prilocaine Cream] 30 gm TP DAILY PRN PRN #1 cream..g. 10/07/17 Edoxaban Tosylate [Savaysa] 60 mg PO DAILY #30 tab 04/24/18 Demeclocycline HCl 300 mg PO DAILY 30 Days #30 tab 02/04/19 Ondansetron [Zofran Odt] 8 mg PO Q8H PRN PRN 02/07/19 Atorvastatin Calcium [Lipitor] 40 mg PO QHS #30 tab 02/11/19 Cephalexin [Keflex] 500 mg PO BID #5 cap 02/11/19 Dexamethasone [Decadron] 4 mg PO DAILY #30 tab 02/11/19 Following Prescrptions Were Given to Patient: Dexamethasone [Decadron] 4 mg PO DAILY #30 tab Transmission Status: Received by SHAREE MILLSVELAND RODRÍGUEZ Cephalexin [Keflex] 500 mg PO BID #5 cap Transmission Status: Received by SHAREE MILLSVELAND RODRÍGUEZ Atorvastatin Calcium [Lipitor] 40 mg PO QHS #30 tab Transmission Status: Received by SHAREE MILLSVELAND RODRÍGUEZ Primary Care Physician: Andrés Helms MD [Primary Care Provider] - Please follow up with your Primary Care Physician in: in 2 weeks Please Follow Up With: Gage Huggins MD When: next week as scheduled Please Follow Up With: Andrés Helms MD Disposition: Home Minutes spent on discharge:: 32 Patient Condition:: Stable Medical Necessity - Tobacco Use Smoking Status: Former smoker Meaningful Use Info Meaningful Use Diagnoses (Choose all that apply): AMI - AMI Aspirin given w/in 24hrs of arrival?: No Reason no aspirin w/in 24hrs of arrival?: Patient was on Edoxaban on admission ASA at discharge?: No Reason ASA not ordered:: Allergy - Patient was on edoxaban on discharge Statins at discharge?: Yes Ty/ARB at discharge?: No Reason Ty/ARB not ordered:: Allergy - Patient has stage IV lung cancer Beta Lemuel at discharge?: No Reason Beta Lemuel not ordered:: Allergy - Patient has stage IV lung cancer Done w/ Acute CA measure.: Yes Documented LVEF (%): 60 Code Visit Inpatient E&M: 12440 Disch Hosp
== END 2019-02-11 15:15 | disposition home health service (06) | DRG 280 ==
LOC: ED 14:08 → ICU 14:29 → PCU 02-09 16:24
PROVIDERS: Internal Medicine Critical Care Medicine; Admitting Provider Hospitalist; Emergency Provider Emergency Medicine; Family Provider Internal Medicine; PCP Internal Medicine; Visit Provider Internal Medicine
DX: I21.4 Non-ST elevation (NSTEMI) myocardial infarction (principal); G93.41 Metabolic encephalopathy; E22.2 Syndrome of inappropriate secretion of antidiuretic hormone; C34.90 Malignant neoplasm of unspecified part of unspecified bronchus or lung; N30.00 Acute cystitis without hematuria; C79.31 Secondary malignant neoplasm of brain; C77.9 Secondary and unspecified malignant neoplasm of lymph node, unspecified; E87.6 Hypokalemia; Z86.711 Personal history of pulmonary embolism; T45.1X5A Adverse effect of antineoplastic and immunosuppressive drugs, initial encounter; D64.81 Anemia due to antineoplastic chemotherapy; D63.0 Anemia in neoplastic disease; R53.81 Other malaise; I27.20 Pulmonary hypertension, unspecified; Z79.01 Long term (current) use of anticoagulants; F17.201 Nicotine dependence, unspecified, in remission; B96.89 Other specified bacterial agents as the cause of diseases classified elsewhere; F43.20 Adjustment disorder, unspecified
CPT/HCPCS: 36591; 70450; 70553; 80048; 80076; 81001; 83690; 83735; 83930; 83935; 84100; 84295; 84300; 84484; 85025; 87077; 87086; 87088; 93005; 93306; 97110; 97163; 97166; 97530; 97535; 97802; 99284; 99406; A9575; J7030; J7040; J7050; Q9957; A4216; C1752; J2405

== ENCOUNTER 2019-02-13 11:46 | Emergency (ER) | payer OTHER, SELFPAY ==
[2018-04-14 08:57] VITALS: BMI 26.5
[2019-02-12 09:02] VITALS: BMI 28.8
[2019-02-13 11:47] VITALS: BP 147/91; PULSE 105; RESP 18; TEMP 36.4; O2SAT 99; BMI 28.3
--- NOTE | 2019-02-13 12:12 | CT_ITS ---
HISTORY: Altered mental status 2 days, history of lung cancer. COMPARISON: MRI brain 02/11/[address] brain 02/07/2019 TECHNIQUE: Helical CT axial images are obtained from the base of skull through the vertex without IV contrast. Multiplanar reconstruction. A radiation dose optimization technique was used for this scan. # of images incl. paperwork: 250 FINDINGS: Again seen within the left parasagittal frontal lobe is a mildly hyperdense lesion measuring 0.8 cm with mild surrounding vasogenic edema corresponding to the MR demonstrated enhancing lesion compatible with metastatic disease. Right parasagittal frontal lobe at the level of the vertex best seen on series 2 image 39, is a vague 0.3 cm hyperdensity which on prior MRI corresponded to an area of restricted diffusion. However given the similar attenuation of the left frontal lobe abnormality, there is concern for developing additional metastatic focus. Remainder of the brain demonstrates no other focal abnormalities to suggest infarct, hemorrhage, or additional intra-axial masses. No midline shift. No abnormal extra-axial fluid collections. Ventricles are normal in size and configuration. No hydrocephalus. Bone windows show no skull fracture or calvarial lesions. Visualized paranasal sinuses are clear. Visualized mastoid air cells are clear. ASPECTS Score for Acute Strokes: 10 CT/Brain/Head without Contrast IMPRESSION: 1. Left anterior parasagittal frontal lobe 0.8 cm hyperdense lesion with mild surrounding vasogenic edema corresponding to the MR demonstrated enhancing lesion, suspicious for metastatic disease. 2. Vague right parasagittal frontal lobe 0.3 cm hyperdensity at the vertex as referenced above, which may represent a developing additional focus of metastatic disease. On the MR exam, this demonstrated a tiny area of restricted diffusion; however, this is somewhat unusual location for a small focus of acute infarct. 3. No other parenchymal abnormalities. Individualized dose optimization techniques were used for this CT. at 1335 Reported and signed by: Ron Damon MD Electronically Signed: Ron Damon MD at 13:34 EDT Tel , Service support ,
--- NOTE | 2019-02-13 12:13 | EKG12_ITS ---
Test Reason : WEAKNESS Blood Pressure : / mmHG Vent. Rate : 093 BPM Atrial Rate : 093 BPM P-R Int : 166 ms QRS Dur : 080 ms QT Int : 386 ms P-R-T Axes : 090 097 106 degrees QTc Int : 479 ms Suspect arm lead reversal, interpretation assumes no reversal Normal sinus rhythm Rightward axis Recommended repeat EKG Confirmed by RAMAKRISHNA GONZALEZ, EDWAR ([id number]), clinical editor CHRISTINE BELL ([id number]) on 02/16/2019 1:19:35 PM Referred By: LEANNE Confirmed By:EDWAR DURBIN MD
--- NOTE | 2019-02-13 12:14 | RAD_ITS ---
HISTORY: History of lung cancer, shortness of breath and altered mental status. XR Chest 2 Views TECHNIQUE: Frontal and lateral views of chest. # of images incl. paperwork: 2 COMPARISON: Chest x-ray 07/20/[address] chest 10/27/2018 FINDINGS: Right [id number] catheter in place. Normal heart size. Pulmonary vasculature appears normal. No confluent areas of acute consolidation. No pleural effusions or pneumothorax. No acute osseous abnormality of the thorax. Peripherally calcified breast augmentation implants. RAD/Chest PA and Lateral IMPRESSION: 1. No acute cardiopulmonary disease. at 1343 Reported and signed by: Ron Damon MD Electronically Signed: Ron Damon MD at 13:42 EDT Tel , Service support ,
--- NOTE | 2019-02-13 12:17 | ED.DCSUM_ITS ---
- ER Visit Summary Date of Service: 02/13/19 Chief Complaint: Confusion History of Present Illness: The patient is a 58 F who presents with confusion that has been getting worse over the past 2 days. states the patient has been forgetting things that she normally remembers like names. stat es patient has been wandering around the house and forgetting where she is going. states patient is having some visual hallucinations. Patient has been seeing people at nighttime. Patient was recently admitted to intensive care unit for hyponatremia. This has improved. Patient had labs drawn today which showed a sodium of 136. Patient is scheduled for a CT scan of the brain at 3 PM today to evaluate the metastasis to her brain from her lung cancer. Physical Examination: Vital signs are stable. Patient is afebrile. Patient is in no acute distress. Cranial nerves II through XII are intact. There are no focal motor or sensory deficits noted. Patient is awake, alert, and oriented to person, place, and time. Oral mucosa is pink and moist. Neck is supple. Trachea is midline. There is no JVD noted. Heart was regular rate and rhythm. Lungs are clear and equal bilaterally. Abdomen is soft. Bowel sounds are normal. There is no tenderness. Test Results: EKG showed normal sinus rhythm with a rate of 93. There are no acute ST or T wave changes. This was unchanged compared to previous EKG dated 02/08/2019 CBC showed a mild anemia with a hemoglobin of 9.9 hematocrit of 28.4. This was unchanged compared to previous results. Urinalysis showed some hematuria with occult blood of 250 and 25-50 red blood cells. There is no evidence of urinary tract infection. Apprehensive metabolic profile was within normal limits. CT scan of the brain was obtained. There is a 0.8 cm left frontal lobe lesion with some mild vasogenic edema around it. There is a right frontal lobe hyperdensity of 0.3 cm which may represent an additional metastasis. There are no other intraparenchymal abnormalities. Emergency Department Course and Treatment: Case was discussed with Dr. Bernardo. He recommended contacting oncology. Case was discussed with Asmita Sommers. She contacted Dr. Huggins who noted that the patient has an appoint with the radiation oncologist on Saturday for possible gamma knife treatment. He stated that if the patient was to be admitted there would be no consultation with the radiation oncologist until Saturday anyhow. There would be no additional treatment in the hospital over the weekend. She recommended increasing the patient's Decadron to 4 mg twice daily from once daily. Patient and her understood and were agreeable with the plan. All questions were answered. Disposition: Discharge home Impression: 1. Lung cancer with brain metastases 2. Altered mental status This note was generated with [employer] software. It may contain incorrect words, spelling, and punctuation that were not noted in review of the chart prior to signing ED Disposition - Plan for ED Patient: Disposition: Home or Assisted Living Diagnosis: Brain metastases Referrals: Andrés Helms MD [Primary Care Provider] - Additional Instructions: Follow-up with radiation oncology on Saturday as scheduled. Increase your Decadron to 4 mg twice daily.
[2019-02-13 12:35] LABS: Bacteria 0 SEEN /hpf (None Seen); Mucous, Urine 0 SEEN /hpf (<or=2+); Squamous Epithelial Cells - UA 0 SEEN /hpf (5-10); White Blood Cells 0 SEEN /hpf (0-5)
[2019-02-13 12:42] LABS: Absolute Lymphocyte Count 0.24 X10^3/ul (0.83-4.51); Absolute Neutrophil Count 7.3 X10^3/uL (2.0-7.7); Basophil# 0.01 X10^3/uL; Basophil% 0.1 % (0-1); Hematocrit 28.4 % (37-47); Hemoglobin 9.9 g/dl (12.0-15.0); Lymphocyte # 0.24 X10^3/ul (4.0); Mean Corp Hgb Conc 34.9 g/gl (32-36); Mean Corpuscular Hgb 31.3 pg (27.0-32.0); Mean Corpuscular Volume 89.9 fL (81-99); Mean Platelet Vol. 8.7 fl (6.2-12.0); Monocyte# 0.49 X10^3/uL; Monocyte% 6.1 % (0-10); Neutrophil % 90.4 % (47-70); Platelet Count 331 K/mm3 (150-450); RBC Distribution Width CV 14.7 % (11.6-14.6); RBC Distribution Width SD 47.9 fl (35.1-43.9); Red Blood Count 3.16 M/mm3 (4.2-5.4); White Blood Count 8.1 K/mm3 (4.4-11.0)
[2019-02-13 12:45] LABS: Differential Indicated SCAN CRITERIA MET; POSITIVE COUNT NO; POSITIVE DIFFERENTIAL YES; POSITIVE MORPHOLOGY NO
[2019-02-13 12:47] VITALS: BP 136/93; PULSE 94; RESP 14; O2SAT 99
[2019-02-13 12:50] LABS: Color, Urine Yellow (Yellow); Glucose, Dipstick Normal (Normal); Ketone-Dipstick Negative (Negative); Leukocyte Esterase-Dipstick Negative /ul (Negative); Nitrite-Dipstick Negative (Negative); Occult Blood-Urine 250 /ul (Negative); Protein-Dipstick Negative (Negative); Specific Gravity, Urine 1.005 (1.002-1.030); Urine Bilirubin Dipstick Negative (Negative); Urine Clarity Sl. Cloudy (Clear); Urine Urobilinogen Normal (Normal)
[2019-02-13 12:54] LABS: AST(SGOT) 30 U/L (15-37); Alanine Aminotransfer ALT/SGPT 18 U/L (13-56); Albumin, Serum 3.1 g/dL (3.2-5.0); Alkaline Phosphatase 55 U/L (45-117); Anion Gap 6 (5-15); BUN 16 mg/dL (7-18); BUN/Creat Ratio 25.5 RATIO (10-20); Calcium,Total 8.7 mg/dL (8.5-10.1); Chloride 102 mmol/L (98-107); Creatinine, Serum 0.63 mg/dL (0.55-1.02); EST Glomerular Filtration Rate 103 mL/min (>60); Est Glom Filt Rate - Afr Amer 124 mL/min (>60); Estimated Creatinine Clearance 85.45 ml/min; Globulin 3.1 g/dL (2.2-4.2); Glucose 123 mg/dL (74-106); Protein, Total 6.2 g/dL (6.4-8.2); Sodium Level 133 mmol/L (136-145)
[2019-02-13 13:05] LABS: Red Blood Cells-Urine 25-50 SEEN /hpf (0-5)
[2019-02-13 13:12] LABS: Hypochromasia 2+
[2019-02-13 14:00] VITALS: BP 132/84; PULSE 95; RESP 18; O2SAT 99
[2019-02-13 15:07] VITALS: BP 127/73; PULSE 99; RESP 13; O2SAT 100
[2019-02-13 16:17] VITALS: BMI 28.4
[2019-02-13 17:02] VITALS: BP 138/71; PULSE 91; RESP 16; O2SAT 96
== END 2019-02-13 17:03 | disposition home or self-care (01) ==
PROVIDERS: Emergency Provider Emergency Medicine; Family Provider Internal Medicine; PCP Internal Medicine
DX: C34.90 Malignant neoplasm of unspecified part of unspecified bronchus or lung (principal); C79.31 Secondary malignant neoplasm of brain; R41.82 Altered mental status, unspecified; Z79.899 Other long term (current) drug therapy
CPT/HCPCS: 36591; 70450; 71046; 80053; 81001; 82140; 84484; 85025; 93005; 99283; A4216

== ENCOUNTER → 2019-02-17 11:54 | Outpatient (CLI) | payer OTHER, SELFPAY ==
[2018-04-14 08:57] VITALS: BMI 26.5
[2019-02-04 09:51] VITALS: BMI 29.4
[2019-02-13 11:47] VITALS: BMI 28.3
--- NOTE | 2019-02-17 11:58 | CT_ITS ---
STUDY: CT CHEST WITH CONTRAST REASON FOR EXAM: Female, 58 years old. Brain tumor, seizures small cell lung CA RADIATION DOSAGE (If Supplied By Facility): CTDIvol = ( 11.57 ) mGy, DLP = ( 759.06 ) mGycm TECHNIQUE: Transaxial imaging was performed following intravenous administration of 100 IV Isovue 300. Individualized dose optimization techniques were used for this CT. COMPARISON: October 27, 2018. FINDINGS: The lungs are hyperaerated with emphysematous changes. A right lower lobe ovoid nodule, image 58 series 6 on the previous study is not identified on the current exam. Stable 6 mm pleural-based right upper lobe peripheral nodule laterally with adjacent calcification, image 36 series 6. Stable calcified right lower lobe nodule measuring 6 mm, image 56 series 6. There are 2 stable 2 mm nodules in the right lower lobe laterally, image 86 series 6. Stable left upper lobe peripheral 3 mm nodule, image 36 series 6. Stable 2 mm left lower lobe peripheral nodule posteriorly, image 68 series 6. Normal heart and pericardium. Normal mediastinum. Normal hilar regions. Normal enhanced pulmonary arteries. Normal aorta arch and descending thoracic aorta. Mild degenerative vertebral changes and mild compression of several mid thoracic segments similar to previous study. There is no demonstrated abnormality of the visualized upper abdomen. CT/Chest WITH Contrast IMPRESSION: A previously noted ovoid right lower lobe nodule on the previous study is no longer seen. Other nonspecific nodular densities and granulomatous calcifications are stable. Electronically Signed: Berto Rey DO at 19:16 EDT Tel [phone], Service support ,
--- NOTE | 2019-02-17 11:58 | CT_ITS ---
STUDY: CT ABDOMEN WITH CONTRAST REASON FOR EXAM: Female, 58 years old. Brain tumor, seizures, RADIATION DOSAGE (If Supplied By Facility): CTDIvol = ( 11.57 ) mGy, DLP = ( 759.06 ) mGycm TECHNIQUE: Transaxial images were obtained post I.V. administration of 100 IV Isovue 300, and oral contrast. Sagittal and coronal images were reconstructed. Individualized dose optimization techniques were used for this CT. COMPARISON: None. FINDINGS: Nonspecific 2 mm peripheral nodules in the right lower lobe laterally, image 4 series 3. The visualized portions of the heart are within normal limits. Normal liver. Normal gallbladder and extrahepatic biliary system. Granulomatous calcifications in the spleen. Normal pancreas. Normal bilateral adrenal glands. Normal right kidney. Normal left kidney. Normal visualized stomach. Normal visualized small intestine. Normal visualized colon. Calcified abdominal aorta. Normal inferior vena cava. Normal retroperitoneum. Normal visualized abdominal wall. Mild degenerative vertebral changes and mild heterogeneous bony density similar to previous study. CT/Abdomen WITH IV Contrast IMPRESSION: Nonspecific peripheral nodular densities in the right lung base. No acute pathology or significant interval changes in the abdomen since the previous study. Electronically Signed: Berto Rey DO at 18:39 EDT Tel [phone], Service support ,
== END ==
PROVIDERS: Family Provider Internal Medicine; PCP Internal Medicine; Referring Provider Internal Medicine Hematology & Oncology; Visit Provider Internal Medicine Hematology & Oncology
DX: C34.90 Malignant neoplasm of unspecified part of unspecified bronchus or lung (principal); C77.9 Secondary and unspecified malignant neoplasm of lymph node, unspecified; R91.8 Other nonspecific abnormal finding of lung field; Z79.899 Other long term (current) drug therapy
CPT/HCPCS: 71260; 74160; Q9967; A4216

== ENCOUNTER → 2019-03-18 12:49 | Outpatient (CLI) | payer OTHER, SELFPAY ==
[2018-04-14 08:57] VITALS: BMI 26.5
[2019-02-04 09:51] VITALS: BMI 29.4
[2019-03-18 08:50] VITALS: BMI 27.6
--- NOTE | 2019-03-18 12:49 | MRI_ITS ---
STUDY: MRI BRAIN WITH AND WITHOUT CONTRAST REASON FOR EXAM: Female, 58 years old. Follow-up for brain metastases TECHNIQUE: Standardized multiplanar fat and water weighted pulse sequences were obtained. 15 IV Gadavist was administered for the contrast portion of the examination. COMPARISON: Brain MRI 02/11/2019. FINDINGS: Again seen is a left frontal lobe subcortical metastasis with rim enhancement measuring 1.1 x 1 cm (previously 0.9 x 0.8 cm when measured in similar manner). There is corresponding restricted diffusion and mild surrounding vasogenic edema there is a cortically-based metastasis in the high right frontal lobe vertex with contrast enhancement measuring 6 mm, this previously measured approximately 3 mm. 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 Normal size of the ventricles and extra-axial spaces for the patient's age. There are a limited number of small white matter hyperintensities, distributed throughout the deep white matter tracts of the cerebral hemispheres, consistent with mild chronic white matter ischemic changes. Normal bilateral basal ganglia. Normal thalami. There is no extra-axial fluid accumulation. Normal flow voids within the major intracranial circulation suggesting patency by spin echo criteria. Normal venous enhancement. Normal sella turcica, pituitary gland, infundibular stalk, optic chiasm and hypothalamus. Normal tectal plate and pineal gland. Normal midbrain, dede and medulla. Normal cerebellum. Normal basal cisterns. Normal bilateral temporal bones. Normal bilateral internal auditory canals. No demonstrated orbital abnormality, within the constraints of a routine brain study. Normal visualized paranasal sinuses. Normal calvarium and skull base. Normal visualized soft tissue structures. Normal visualized upper cervical spine. MRI/Brain W/WO Contrast IMPRESSION: 1. Right and left frontal lobe metastases have increased in size since prior exam as described above. No new lesion. 2. 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 Electronically Signed: Clive Henson at 15:47 EDT Tel , Service support ,
== END ==
PROVIDERS: Family Provider Internal Medicine; PCP Internal Medicine; Referring Provider Internal Medicine Hematology & Oncology; Visit Provider Internal Medicine Hematology & Oncology
DX: C34.90 Malignant neoplasm of unspecified part of unspecified bronchus or lung (principal); C77.9 Secondary and unspecified malignant neoplasm of lymph node, unspecified; R51 Headache; Z79.899 Other long term (current) drug therapy
CPT/HCPCS: 70553; A9575

== ENCOUNTER → 2019-04-14 07:22 | Outpatient (CLI) | payer OTHER, SELFPAY ==
[2018-04-14 08:57] VITALS: BMI 26.5
[2019-04-01 09:10] VITALS: BMI 27.8
--- NOTE | 2019-04-14 07:23 | CT_ITS ---
STUDY: CT ABDOMEN WITH CONTRAST REASON FOR EXAM: Female, 58 years old. History of metastatic lung cancer. RADIATION DOSAGE (If Supplied By Facility): CTDIvol = ( 12.56 ) mGy, DLP = ( 1149.04 ) mGycm TECHNIQUE: Transaxial images were obtained post I.V. administration of 100 IV Isovue 300, and oral contrast. Sagittal and coronal images were reconstructed. Individualized dose optimization techniques were used for this CT. COMPARISON: Comparison is made with prior study dated February 17, 2019. FINDINGS: A right breast prosthesis is seen. Stable dense calcification along its peripheral margin more prominent anteriorly. This is unchanged. The visualized lung bases are unremarkable. The visualized portions of the heart are within normal limits. Normal liver. Normal gallbladder and extrahepatic biliary system. There are multiple benign calcified granulomata of the spleen. Normal pancreas. Normal bilateral adrenal glands. Normal right kidney. Normal left kidney. Normal visualized stomach. Normal small intestine. There are multiple colonic diverticula consistent with diverticulosis. The appendix is visualized and appears normal. There is diffuse atherosclerotic calcification of the abdominal aorta, without a demonstrated aneurysm. Normal inferior vena cava. Normal retroperitoneum. Normal abdominal wall. There are mild degenerative changes of the visualized lumbar spine. Stable 1 cm rounded lucency in the L3 vertebral body. CT/Abdomen WITH IV Contrast IMPRESSION: Stable examination. Electronically Signed: Ilya Elliott, at 15:18 EDT , Service support ,
--- NOTE | 2019-04-14 07:23 | CT_ITS ---
STUDY: CT CHEST WITH CONTRAST REASON FOR EXAM: Female, 58 years old. Metastatic lung cancer with the brain metastasis. RADIATION DOSAGE (If Supplied By Facility): CTDIvol = ( 12.56 ) mGy, DLP = ( 1149.04 ) mGycm TECHNIQUE: Transaxial imaging was performed following intravenous administration of 100 IV Isovue 300. Multiplanar coronal and sagittal images were reformatted. Individualized dose optimization techniques were used for this CT. COMPARISON: Comparison is made with prior study dated February 17, 2019. FINDINGS: Stable appearance of the bilateral breast prostheses with peripheral calcification worse anteriorly. A right-sided portacatheter is seen with the tip in the superior vena cava. There is evidence of a underlying emphysematous changes in both lungs with cystic changes worse in the upper lobes. At this time however, there is evidence of a patchy areas of groundglass appearance involving both lungs with areas of confluence. This may be related to the patient's medication. This is worse in the upper lobes. Stable calcified granuloma in the peripheral aspect of the right upper lobe. There is no demonstrated pleural abnormality. Normal heart and pericardium. There are multiple small lymph nodes within the mediastinum, which are normal in size and morphology most compatible with reactive lymph hyperplasia. Normal hilar regions. Normal enhanced pulmonary arteries. Normal aorta arch and descending thoracic aorta. There are multi-level degenerative changes of the thoracic spine. The mineralization of the thoracic vertebrae. Minimal loss of height of the superior endplates of the mid thoracic vertebrae. Hiatal hernia. CT/Chest WITH Contrast IMPRESSION: Diffuse emphysematous changes. There now is evidence of a groundglass appearance in both lungs worse in the upper lobes. Electronically Signed: Ilya Elliott, at 15:22 EDT , Service support ,
== END ==
PROVIDERS: Family Provider Internal Medicine; PCP Internal Medicine; Referring Provider Internal Medicine Hematology & Oncology; Visit Provider Internal Medicine Hematology & Oncology
DX: C34.90 Malignant neoplasm of unspecified part of unspecified bronchus or lung (principal); C77.9 Secondary and unspecified malignant neoplasm of lymph node, unspecified
CPT/HCPCS: 71260; 74160; Q9967; A4216

== ENCOUNTER → 2019-05-21 15:55 | Outpatient (CLI) | payer OTHER, SELFPAY ==
[2018-04-14 08:57] VITALS: BMI 26.5
[2019-05-20 09:03] VITALS: BMI 26.9
--- NOTE | 2019-05-21 15:57 | CT_ITS ---
STUDY: CT chest and abdomen with contrast REASON FOR EXAM: Female, 58 years old. History of lung cancer RADIATION DOSAGE (If Supplied By Facility): CTDIvol = ( 12.65 ) mGy, DLP = ( 980.83 ) mGycm TECHNIQUE: Transaxial images were obtained post I.V. administration of IV Isovue 300 100, and without oral contrast. Sagittal and coronal images were reconstructed. Individualized dose optimization techniques were used for this CT. COMPARISON: CT chest April 14, 2019. CT abdomen February 17, 2019. FINDINGS: Moderate emphysema is present. There has been [id number] interval improvement in scattered bilateral groundglass pulmonary opacities. There is a stable right lower lobe 3 mm nodule, series 6 image 80. There is a stable right lower lobe 4 mm nodule, series 6 image 82. There has been slight increase in size of a right lower lobe 4 mm nodule, series 6 image 63. There is a stable left upper lobe 4 mm nodule, series 6 image 34. The visualized portions of the heart are within normal limits. Normal liver. Normal gallbladder and extrahepatic biliary system. Normal spleen. Normal pancreas. Normal bilateral adrenal glands. Normal right kidney. Normal left kidney. Normal visualized stomach. Normal small intestine. Normal colon. The appendix is visualized and appears normal. Normal abdominal aorta. Normal inferior vena cava. Normal retroperitoneum. Normal abdominal wall. Normal osseous structures. CT/Abdomen WITH IV Contrast IMPRESSION: Stable emphysema with mild to moderately improved but persistent scattered bilateral groundglass opacities, nonspecific, likely sequelae of infectious or inflammatory process. Bilateral pulmonary nodules, most not significantly changed, with a slightly increased right lower lobe nodule measuring 4 mm. No evidence of metastatic disease in the abdomen. Electronically Signed: Kyrie Chavez, at 19:56 EDT Tel , Service support ,
--- NOTE | 2019-05-21 15:57 | CT_ITS ---
STUDY: CT chest and abdomen with contrast REASON FOR EXAM: Female, 58 years old. History of lung cancer RADIATION DOSAGE (If Supplied By Facility): CTDIvol = ( 12.65 ) mGy, DLP = ( 980.83 ) mGycm TECHNIQUE: Transaxial images were obtained post I.V. administration of IV Isovue 300 100, and without oral contrast. Sagittal and coronal images were reconstructed. Individualized dose optimization techniques were used for this CT. COMPARISON: CT chest April 14, 2019. CT abdomen February 17, 2019. FINDINGS: Moderate emphysema is present. There has been [id number] interval improvement in scattered bilateral groundglass pulmonary opacities. There is a stable right lower lobe 3 mm nodule, series 6 image 80. There is a stable right lower lobe 4 mm nodule, series 6 image 82. There has been slight increase in size of a right lower lobe 4 mm nodule, series 6 image 63. There is a stable left upper lobe 4 mm nodule, series 6 image 34. The visualized portions of the heart are within normal limits. Normal liver. Normal gallbladder and extrahepatic biliary system. Normal spleen. Normal pancreas. Normal bilateral adrenal glands. Normal right kidney. Normal left kidney. Normal visualized stomach. Normal small intestine. Normal colon. The appendix is visualized and appears normal. Normal abdominal aorta. Normal inferior vena cava. Normal retroperitoneum. Normal abdominal wall. Normal osseous structures. CT/Chest WITH Contrast IMPRESSION: Stable emphysema with mild to moderately improved but persistent scattered bilateral groundglass opacities, nonspecific, likely sequelae of infectious or inflammatory process. Bilateral pulmonary nodules, most not significantly changed, with a slightly increased right lower lobe nodule measuring 4 mm. No evidence of metastatic disease in the abdomen. Electronically Signed: Kyrie Chavez, at 19:56 EDT Tel , Service support ,
== END ==
PROVIDERS: Family Provider Internal Medicine; PCP Internal Medicine; Referring Provider Internal Medicine Hematology & Oncology; Visit Provider Internal Medicine Hematology & Oncology
DX: C34.90 Malignant neoplasm of unspecified part of unspecified bronchus or lung (principal); C79.31 Secondary malignant neoplasm of brain; R91.8 Other nonspecific abnormal finding of lung field; R05 Cough; R53.81 Other malaise
CPT/HCPCS: 71260; 74160; Q9967

== ENCOUNTER → 2019-05-22 13:51 | Outpatient (CLI) | payer OTHER, SELFPAY ==
[2018-04-14 08:57] VITALS: BMI 26.5
[2019-04-22 08:58] VITALS: BMI 27.4
[2019-05-20 09:03] VITALS: BMI 26.9
--- NOTE | 2019-05-22 14:30 | MRI_ITS ---
STUDY: MRI BRAIN WITH AND WITHOUT CONTRAST REASON FOR EXAM: Female, 58 years old. Headaches, history metastatic disease TECHNIQUE: Standardized multiplanar fat and water weighted pulse sequences were obtained. IV Dotarem 15 was administered for the contrast portion of the examination. COMPARISON: March 18, 2019 FINDINGS: Normal size of the ventricles and extra-axial spaces for the patient's age. Mild periventricular white matter ischemic changes without mass effect or restricted diffusion. Normal bilateral basal ganglia. Normal thalami. There is no extra-axial fluid accumulation. Normal flow voids within the major intracranial circulation suggesting patency by spin echo criteria. Normal venous enhancement. Small enhancing nodule in left frontal lobe measuring approximately 5 mm in size Normal sella turcica, pituitary gland, infundibular stalk, optic chiasm and hypothalamus. Normal tectal plate and pineal gland. Normal midbrain, dede and medulla. Normal cerebellum. Normal basal cisterns. Normal bilateral temporal bones. Normal bilateral internal auditory canals. No demonstrated orbital abnormality, within the constraints of a routine brain study. Normal visualized paranasal sinuses. Normal calvarium and skull base. Normal visualized soft tissue structures. Normal visualized upper cervical spine. The enhancing lesion in left frontal lobe has decreased in size since prior exam. Previously noted right frontal lobe nodule is not visualized at this time. No new metastatic lesions are observed MRI/Brain W/WO Contrast IMPRESSION: Periventricular white matter ischemic changes without evidence for acute infarct. Persistent left frontal lobe metastasis which has decreased in size since prior study and nonvisualization of previously noted right frontal lobe metastasis. No new metastatic lesions identified Electronically Signed: Kyrie Tello MD at 16:38 EDT , Service support ,
== END ==
PROVIDERS: Family Provider Internal Medicine; PCP Internal Medicine; Referring Provider Student in an Organized Health Care Education/Training Program; Visit Provider Student in an Organized Health Care Education/Training Program
DX: R51 Headache (principal); D49.9 Neoplasm of unspecified behavior of unspecified site
CPT/HCPCS: 70553; A9575; A4216

== ENCOUNTER → 2019-07-22 10:55 | Outpatient (CLI) | payer OTHER, SELFPAY ==
[2019-05-29 09:01] VITALS: BMI 26.5; BMI 28.3
[2019-07-22 08:37] VITALS: BMI 27.9
--- NOTE | 2019-07-22 11:27 | MRI_ITS ---
STUDY: MRI BRAIN WITH AND WITHOUT CONTRAST REASON FOR EXAM: Female, 58 years old. SC L3 with brain metastases. Follow-up posttreatment. TECHNIQUE: Standardized multiplanar fat and water weighted pulse sequences were obtained. Pt received 15ml Dotarem vial port was administered for the contrast portion of the examination. COMPARISON: May 22, 2019 FINDINGS: Normal size of the ventricles and extra-axial spaces for the patient's age. Normal white matter tracts of the supratentorial brain. Previously noted small enhancing frontal lobe metastatic lesions are no longer evident . Normal bilateral basal ganglia. Normal thalami. There is no extra-axial fluid accumulation. Normal flow voids within the major intracranial circulation suggesting patency by spin echo criteria. Normal venous enhancement. There is no enhancing intra-axial or extra-axial abnormality. Normal sella turcica, pituitary gland, infundibular stalk, optic chiasm and hypothalamus. Normal tectal plate and pineal gland. Normal midbrain, dede and medulla. Normal cerebellum. Normal basal cisterns. Normal bilateral temporal bones. Normal bilateral internal auditory canals. No demonstrated orbital abnormality, within the constraints of a routine brain study. Normal visualized paranasal sinuses. Normal calvarium and skull base. Normal visualized soft tissue structures. Normal visualized upper cervical spine. MRI/Brain W/WO Contrast IMPRESSION: Frontal lobe metastatic lesions no longer evident. No acute disease. Electronically Signed: Gene Deleon MD at 16:15 EST , Service support ,
== END ==
PROVIDERS: Family Provider Internal Medicine; PCP Internal Medicine; Referring Provider Student in an Organized Health Care Education/Training Program; Visit Provider Student in an Organized Health Care Education/Training Program
DX: C34.90 Malignant neoplasm of unspecified part of unspecified bronchus or lung (principal); C79.31 Secondary malignant neoplasm of brain
CPT/HCPCS: 70553; A9575

== ENCOUNTER → 2019-07-22 11:51 | Outpatient (CLI) | payer OTHER, SELFPAY ==
[2019-05-29 09:01] VITALS: BMI 26.5
[2019-07-20 08:48] VITALS: BMI 27.9
[2019-07-22 08:37] VITALS: BMI 27.9
--- NOTE | 2019-07-22 11:58 | CT_ITS ---
STUDY: CT ABDOMEN WITH CONTRAST REASON FOR EXAM: Female, 58 years old. Restaging small cell lung cancer RADIATION DOSAGE (If Supplied By Facility): CTDIvol = ( 9.31 ) mGy, DLP = ( 675.31 ) mGycm TECHNIQUE: Transaxial images were obtained post I.V. administration of 75mL Isovue 370, and oral contrast. Sagittal and coronal images were reconstructed. Individualized dose optimization techniques were used for this CT. COMPARISON: May 21, 2019 FINDINGS: There is minor interstitial thickening in the lower lobes.. The visualized portions of the heart are within normal limits. Bilateral breast prostheses are noted. There is significant capsular calcification on the right. Mild fatty infiltration of liver without mass or bile duct dilatation. Normal gallbladder and extrahepatic biliary system. Normal size spleen containing tiny granulomatous calcifications. Normal pancreas. Normal bilateral adrenal glands. Normal right kidney. Normal left kidney. Normal visualized stomach. Normal small intestine. Normal colon. The appendix is visualized and appears normal. Mild atherosclerotic changes of the aorta without evidence for aneurysm.. Normal inferior vena cava. Normal retroperitoneum. Normal abdominal wall. Lumbar spine demonstrates mild spondylosis CT/Abdomen WITH IV Contrast IMPRESSION: Mild nonspecific fatty infiltration of the liver. No evidence for liver metastasis, adrenal metastasis or retroperitoneal adenopathy Electronically Signed: Kyrie Tello MD at 21:00 EST , Service support ,
--- NOTE | 2019-07-22 11:58 | CT_ITS ---
STUDY: CT CHEST WITH CONTRAST REASON FOR EXAM: Female, 58 years old. Restaging lung cancer RADIATION DOSAGE (If Supplied By Facility): CTDIvol = ( 9.31 ) mGy, DLP = ( 675.31 ) mGycm TECHNIQUE: Transaxial imaging was performed following intravenous administration of 75mL Isovue 370. Individualized dose optimization techniques were used for this CT. COMPARISON: CT chest 05/21/2019. FINDINGS: There are stable COPD changes and scattered pulmonary scarring. There are also stable 4 mm and smaller bilateral pulmonary nodules. There are no new pulmonary nodules. There are improving bilateral groundglass pulmonary opacities. There is a stable right lower lobe calcified granuloma. Normal heart and pericardium. There is stable distention of the right internal jugular vein. There is significant flattening at the junction of the right internal jugular vein and the superior vena cava. There is a central venous catheter in place. There is flattening of the proximal superior vena cava unchanged. Normal hilar regions. There are stable subcentimeter mediastinal lymph nodes.. Normal enhanced pulmonary arteries. Normal aorta arch and descending thoracic aorta. There is stable thoracic kyphosis, multilevel spondylosis with stable multilevel Schmorl''s nodes and stable mild compression deformities.. There is benign fibrous calcified encapsulation of the breast implants. There is no demonstrated abnormality of the visualized upper abdomen. CT/Chest WITH Contrast IMPRESSION: Stable COPD changes and scattered pulmonary scarring Stable scattered 4 mm and smaller bilateral pulmonary nodules Improving bilateral groundglass pulmonary opacities stable distention of the right internal jugular vein. There is significant flattening at the junction of the right internal jugular vein and the superior vena cava. There is a central venous catheter in place. There is flattening of the proximal superior vena cava unchanged. This may represent chronic partial thrombosis and/or stenosis Stable benign encapsulated breast implants stable thoracic kyphosis, multilevel spondylosis with stable multilevel Schmorl''s nodes and stable mild compression deformities. Electronically Signed: Hunter Lui, at 7:23 EST Tel , Service support ,
== END ==
PROVIDERS: Family Provider Internal Medicine; PCP Internal Medicine; Referring Provider Internal Medicine Hematology & Oncology; Visit Provider Internal Medicine Hematology & Oncology
DX: C34.90 Malignant neoplasm of unspecified part of unspecified bronchus or lung (principal); R91.8 Other nonspecific abnormal finding of lung field; C77.9 Secondary and unspecified malignant neoplasm of lymph node, unspecified; C79.31 Secondary malignant neoplasm of brain
CPT/HCPCS: 71260; 74160; Q9967; A4216

== ENCOUNTER 2019-07-29 10:24 | Day surgery (SDC) | payer OTHER, SELFPAY ==
[2019-05-29 09:01] VITALS: BMI 26.5
[2019-07-28 12:43] VITALS: BMI 27.9
[2019-07-29] VITALS (7 sets, daily range): BP systolic 89–120; BP diastolic 60–81; PULSE 88–95; RESP 15–24; TEMP 36.6–37.1; O2SAT 96–99; BMI 27.9; BMI 28.9
--- NOTE | 2019-07-29 | IMM_PTH ---
PATIENT: WALI ERICKSON LOC: EN U#:[id number] AGE/SX: 59/F ROOM: RE07/29/[address]: Dr. Narinder Vizcarra MD : 1960 BED: DIS: 07/29/2019 SPEC #: [id number] RECD: 07/29/19 14:56 STATUS: ARCENIO REQ #: [id number] MATIAS: 07/29/19 00:[address]: Narinder Vizcarra DEPT: IMMUNOHISTOCHEMISTRY RECD BY: Kervin Espinoza ENTERED: 07/29/19 14:58 SP TYPE: IMMUNO OTHR DR: Dr. Andrés Helms MD Tissues: Gastric mucous membrane Procedures: H Pylori (initial) PHYSICIAN & [place] [id number] SPECIMEN INFORMATION: Tissue Source: Antrum biopsy Clinical Info: Intractable N/V Specimen Number: [id number] CPT code: 11086 METHODOLOGY: Deparaffinized sections of prefer/formalin-fixed tissue or PAP/DQ stained slides are incubated with monoclonal/polyclonal antibodies/oligonucleotide probes. Localization is made via biotin free immunoperoxidase method. Appropriate controls are performed and reacted as expected. Results on target cell population are indicated in the following table: RESULTS: ANTIBODY / CLONE RESULT H Pylori (polyclonal) negative These tests were developed and their performance characteristics determined by [facility]. They may not have been cleared or approved by the U.S. Food and Drug Administration. The FDA has determined that such clearance or approval is not necessary. INTERPRETATION: Gastric antrum, biopsy: Negative for Helicobacter pylori organisms. AM:edward 07/30/19
[2019-07-29] MEDS: Lactated Ringers 1,000 ML 75 ML IV (10:58)
--- NOTE | 2019-07-29 11:20 | PCM.HP.BLA ---
Problem List (1) Vomiting Status: Acute Qualifiers: Vomiting type: unspecified Vomiting Intractability: unspecified Nausea presence: unspecified Qualified Code(s): R11.10 - Vomiting, unspecified History and Physical Date of Admission: 07/29/19 Intake Vital Signs 07/28/19 Body Mass Index (BMI) 27.9 07/28/19 Blood Pressure 94/54 L 07/28/19 Blood Pressure Location Rt brachial 07/28/19 Blood Pressure Position Sitting 07/28/19 Respiratory Rate 16 07/28/19 Pulse Rate 102 H 07/28/19 Temperature 97.8 F 07/28/19 Temperature Source Oral 07/28/19 Pulse Ox 96 Intake Visit Reasons: nausea and vomitting/needs egd this week Chief Complaint: N/V/D 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 10/07/17 [Rx Confirmed 07/28/19] levetiracetam 500 mg tablet 500 mg PO BID #180 tab 02/27/19 [Rx Confirmed 07/28/19] Ondansetron [Zofran] 8 mg PO Q8H PRN PRN #30 tab 07/20/19 [Rx Confirmed 07/28/19] Edoxaban Tosylate [Savaysa] 60 mg PO DAILY 30 Days #30 tab 07/27/19 [Rx Confirmed 07/28/19] Demeclocycline HCl 300 mg PO DAILY #30 tab 07/28/19 [Rx Confirmed 07/28/19] Is last menstrual period known: No Post menopausal: Yes Patient : No PFSH Medical History Small cell lung cancer in adult (Chronic) Seizure disorder (Chronic) Tobacco dependence in remission (Chronic) Surgical History H/O breast augmentation (Acute) History of carpal tunnel release (Acute) History of tubal ligation (Acute) hammer toe repair (Acute) med port placement (Acute) Family History Mother Breast cancer Father Cancer brain and lung Sister Aneurysm Social History (Updated 07/28/19 @ 15:35 by Narinder Vizcarra MD) Smoking Status: Former smoker quit date: 08/10/17 pack-years: 80 how long ago did patient quit smokin alcohol intake: current alcohol intake frequency: a few times a month what type of physical activity do you participate in: none HPI HPI HPI: WALI ERICKSON, is a 59 F who presents to the office today for HPI HPI HPI: WALI ERICKSON, is a 59 F who presents to the office today for Nausea and vomiting. Patient reports that she stopped chemo 4 months ago but she is still having nausea vomiting unable to have any p.o. intake. She has been getting transfusions of fluid due to hypotension and dehydration. She does not complain of any abdominal pain. She says that anytime she tries eating make she dry heaves and vomits. She says she still unable to taste anything due to the chemotherapy. ROS General General: Yes weight change and fatigue; no appetite, colon cancer, breast cancer or weakness HEENT HEENT: No difficulty swallowing, eye injury, eye surgery, swollen glands or hoarseness Endo Endocrine: No thyroid disease, diabetes mellitus, thyroid cancer, Hair loss, heat intolerance or cold intolerance Musc Musculoskeletal: Yes back problems; no arthritis, rheumatoid arthritis, gout or joint pain Cardio Cardiovascular: No murmur, pacemaker, heart disease, atrial fibrillation, high blood pressure, heart attack, heart stent, palpitations, shortness of breat with exertion or chest pain Resp Respiratory: No shortness of breath, No sleep apnea, No cough, No COPD, No asthma, No emphysema, No wheezing Gastro Gastrointestinal: No abdominal pain, Yes nausea or vomiting, Yes diarrhea, No constipation, No blood in stool, No acid reflux, No hemorrhoids, No ulcers, No gallbladder problem, No black,tarry stools Patrice Hematologic: Yes blood thinners, No blood disorders, No bleeding, No anemia, No blood clots Neuro Neurologic: No weakness Exam Const General: cooperative, frail appearing Orientation: alert, oriented x3 Resp Effort & Inspection: normal respiratory effort Auscultation: clear to auscultation bilaterally Cardio Rate: regular rate Rhythm: regular rhythm Heart Sounds: no murmurs GI Inspection: non-distended Palpation: soft, nontender Assessment & Plan Problems 1. Intractable vomiting with nausea, unspecified vomiting type R11.2 Plan Patient reports she has been having nausea and vomiting ever since chemo was ended. There was 4 months ago. She has been losing weight and unable to keep anything down. She has been having infusions due to dehydration and hypotension. I was asked to perform an EGD to check for any mucosal irritation or gastric outlet obstruction in the stomach. If this is unfruitful I also did advise that an ultrasound the gallbladder could be checked although I believe this is due to the chemotherapy as it started with chemotherapy and has not remitted. I explained endoscopy in detail to the patient. I explained the risks including but not limited to stroke or heart attack with anesthesia, perforation of the GI tract, bleeding, infection. I explained that any of these could necessitate further emergency surgery. The patient understands and all questions were answered sufficiently. The patient wishes to proceed with procedure. Narinder Vizcrara MD Pager: [facility] [address] [place] [address] [address] [place] [address] Office:
--- NOTE | 2019-07-29 11:30 | EGD_PTH ---
PATIENT: WALI ERICKSON LOC: EN U#:[id number] AGE/SX: 59/F ROOM: RE07/29/[address]: Dr. Narinder Vizcarra MD : 1960 BED: DIS: 07/29/2019 SPEC #: [id number] RECD: 07/29/19 12:17 STATUS: ARCENIO SCOOBY #: [id number] MATIAS: 07/29/19 11:[address]: Narinder Vizcarra DEPT: SURGICAL PATHOLOGY RECD BY: Maximiliano Acosta ENTERED: 07/29/19 13:43 SP TYPE: EGD BIOPSY OT DR: Dr. Andrés Helms MD Tissues: Gastric mucous membrane Procedures: Surgery Specimen Level IV HEADER OPERATION: EGD ([facility]) PRE-OP DIAGNOSIS: Intractable nausea and vomiting TISSUE SUBMITTED: Antrum biopsy for histo and H. pylori MICROSCOPIC DIAGNOSIS Gastric antrum, biopsy: Mild chronic gastritis. See comment. AM:edward 07/30/19 COMMENT The results of immunohistochemistry for Helicobacter pylori will be reported separately ([id number]). MICROSCOPIC DESCRIPTION Slides are reviewed. GROSS DESCRIPTION Received in fixative is one container labeled with the patient's name and designated antrum biopsy. The specimen consists of two irregular fragments of light escudero soft tissue that in aggregate measure 0.6 x 0.3 x 0.1 cm. The specimen is totally submitted in one cassette. / SJ:edward 07/29/19 TC:3 CPT: 82899
--- NOTE | 2019-07-29 11:45 | OP.EGD_ITS ---
Patient Name: Catina Hall Procedure Date: 07/29/2019 11:25 AM Date of : 1960 Age: 59 Procedure: Upper GI endoscopy Indications: Nausea with vomiting Providers: Narinder Vizcarra MD Medicines: Monitored Anesthesia Care Patient Profile: This is a 59 year old female. Refer to note in patient chart for documentation of history and physical. Complications: No immediate complications. Estimated blood loss: Minimal. Procedure: Pre-Anesthesia Assessment: - Prior to the procedure, a History and Physical was performed, and patient medications and allergies were reviewed. The patient's tolerance of previous anesthesia was also reviewed. The risks and benefits of the procedure and the sedation options and risks were discussed with the patient. All questions were answered, and informed consent was obtained. Prior Anticoagulants: The patient has taken anticoagulant medication, last dose was 1 day prior to procedure. After reviewing the risks and benefits, the patient was deemed in satisfactory condition to undergo the procedure. After obtaining informed consent, the endoscope was passed under direct vision. Throughout the procedure, the patient's blood pressure, pulse, and oxygen saturations were monitored continuously. The gastroscope was introduced through the mouth, and advanced to the second part of duodenum. The upper GI endoscopy was accomplished without difficulty. The patient tolerated the procedure well. Scope In: 11:39:04 AM Scope Out: 11:42:01 AM Total Procedure Duration Time 0 hours 2 minutes 57 seconds Findings: Mild inflammation characterized by adherent blood was found in the prepyloric region of the stomach. Biopsies were taken with a cold forceps for Helicobacter pylori testing. The esophagus was normal. The examined duodenum was normal. Impression: - Gastritis. Biopsied. - Normal esophagus. - Normal examined duodenum. Recommendation: - Discharge patient to home. - Resume previous diet. - Continue present medications. - Resume anticoagulant medication at prior dose tomorrow. - Await pathology results. Procedure Code(s): --- Professional --- 32116, Esophagogastroduodenoscopy, flexible, transoral; with biopsy, single or multiple Diagnosis Code(s): --- Professional --- K29.70, Gastritis, unspecified, without bleeding R11.2, Nausea with vomiting, unspecified CPT copyright 2017 [employer]. All rights reserved. The codes documented in this report are preliminary and upon shop laborer review may be revised to meet current compliance requirements. Narinder Viczarra MD 07/29/2019 11:45:21 AM This report has been signed electronically. Number of Addenda: 0 Note Initiated On: 07/29/2019 11:25 AM
== END 2019-07-29 12:48 | disposition home or self-care (01) ==
LOC: EN 10:25 → AC 10:28
PROVIDERS: Family Provider Internal Medicine; PCP Internal Medicine; Referring Provider Internal Medicine; Visit Provider Surgery
PROC: 0DJ08ZZ Inspection of Upper Intestinal Tract, Via Natural or Artificial Opening Endoscopic (ICD-10-PCS; CPT 43235; principal; 2019-07-29 11:25)
DX: K29.50 Unspecified chronic gastritis without bleeding (principal); C34.90 Malignant neoplasm of unspecified part of unspecified bronchus or lung; G40.909 Epilepsy, unspecified, not intractable, without status epilepticus; I25.2 Old myocardial infarction; K21.9 Gastro-esophageal reflux disease without esophagitis; Z87.891 Personal history of nicotine dependence; Z86.718 Personal history of other venous thrombosis and embolism; Z86.711 Personal history of pulmonary embolism; Z79.02 Long term (current) use of antithrombotics/antiplatelets; Z79.2 Long term (current) use of antibiotics; Z79.899 Other long term (current) drug therapy
CPT/HCPCS: 43239; 88305; 88342; J7120; A4216

== ENCOUNTER → 2019-08-17 13:05 | Outpatient (CLI) | payer OTHER, SELFPAY ==
[2019-05-29 09:01] VITALS: BMI 26.5
[2019-08-17 10:54] VITALS: BMI 29.7
--- NOTE | 2019-08-17 13:06 | VDLE_ITS ---
Reason For Study: BLE EDEMA RIGHT LEFT GSV is normal. GSV is normal. CFV is compressible, spontaneous, phasic, CFV is compressible, spontaneous, phasic, competent and demonstrates normal competent, and demonstrates normal augmentation. augmentation. FV is compressible, spontaneous, phasic, FV is compressible, spontaneous, phasic, competent and demonstrates normal competent and demonstrates normal augmentation. augmentation. POP V is compressible, spontaneous, phasic, POP V is compressible, spontaneous, phasic, competent and demonstrates normal competent and demonstrates normal augmentation. augmentation. T/P Trunk is compressible. T/P Trunk is compressible. PTV is compressible. PTV is compressible. RT PerV is compressible. LT PerV is compressible. Procedure Exam performed in department. The exam was diagnostic. A preliminary report was called and/or faxed to Dr. Moses @ 1:50 pm @ [phone]. Interpretation Summary No evidence for acute deep venous thrombosis bilateral lower extremities with patent and compressible bilateral great saphenous veins. Ordering Physician: Denny Moses Referring Physician: Andrés Helms Performed By: Cha Lin, EMERY, RVT
== END ==
PROVIDERS: Family Provider Internal Medicine; PCP Internal Medicine; Referring Provider Internal Medicine Medical Oncology; Visit Provider Internal Medicine Medical Oncology
DX: R60.0 Localized edema (principal); C34.90 Malignant neoplasm of unspecified part of unspecified bronchus or lung
CPT/HCPCS: 93970

== ENCOUNTER → 2019-11-30 12:45 | Outpatient (CLI) | payer OTHER, SELFPAY ==
[2019-05-29 09:01] VITALS: BMI 26.5
[2019-11-16 09:04] VITALS: BMI 27.5
[2019-11-30 09:57] VITALS: BMI 26.1
--- NOTE | 2019-11-30 12:50 | CT_ITS ---
STUDY: CT CHEST WITH CONTRAST REASON FOR EXAM: Female, 59 years old. CHEMO CHECK, HX-LUNG CA WITH BRAIN METS, ON CHEMO, HAD RAD TX, BILAT BREAST IMPLANTS, FORMER SMOKER RADIATION DOSAGE (If Supplied By Facility): CTDIvol = ( 11.20 ) mGy, DLP = ( 775.95 ) mGycm TECHNIQUE: Transaxial imaging was performed following intravenous administration of IV 100mL Isovue-370. Multiplanar coronal and sagittal images were reformatted. Individualized dose optimization techniques were used for this CT. COMPARISON: Comparison is made with prior examination dated July 22, 2019. FINDINGS: A right-sided portacatheter is seen with the tip in the superior vena cava. Bilateral breast implants with the capsular calcification bilaterally worse on the right side. Stable small benign-appearing bilateral axillary lymph nodes. Diffuse emphysematous changes worse in the upper lobes with the bilateral apical scarring worse in the right apex. Stable calcified granuloma in the peripheral lateral aspect of the right upper lobe as seen on axial image #35. Stable mild increased markings at the lung bases suggestive of scarring. There is no demonstrated pleural abnormality. Normal heart and pericardium. Normal mediastinum. Normal hilar regions. Normal enhanced pulmonary arteries. Normal aorta arch and descending thoracic aorta. There are degenerative changes of the thoracic spine. There is no demonstrated abnormality of the visualized upper abdomen. CT/Chest WITH Contrast IMPRESSION: Stable examination. Electronically Signed: Ilya Elliott, at 15:14 EDT , Service support ,
--- NOTE | 2019-11-30 12:50 | CT_ITS ---
STUDY: CT ABDOMEN WITH CONTRAST REASON FOR EXAM: Female, 59 years old. CHEMO CHECK, HX-LUNG CA WITH BRAIN METS, ON CHEMO, HAD RAD TX, BILAT BREAST IMPLANTS, FORMER SMOKER RADIATION DOSAGE (If Supplied By Facility): CTDIvol = ( 11.20 ) mGy, DLP = ( 775.95 ) mGycm TECHNIQUE: Transaxial images were obtained post I.V. administration of IV 100mL Isovue-370, and oral contrast. Sagittal and coronal images were reconstructed. Individualized dose optimization techniques were used for this CT. COMPARISON: Comparison is made with prior examination dated July 22, 2019. FINDINGS: Bilateral breast implants. Stable capsular calcification of the right breast implant. Stable 2 mm noncalcified nodule in the peripheral aspect of the right lower lobe. The visualized portions of the heart are within normal limits. Normal liver. Normal gallbladder and extrahepatic biliary system. Normal spleen. Normal pancreas. Normal bilateral adrenal glands. Normal right kidney. Normal left kidney. Normal visualized stomach. Normal small intestine. There are multiple colonic diverticula consistent with diverticulosis. The appendix is visualized and appears normal. There is scattered atherosclerotic calcification of the abdominal aorta, without a demonstrated aneurysm. Normal inferior vena cava. Normal retroperitoneum. Normal abdominal wall. Normal osseous structures. CT/Abdomen WITH IV Contrast IMPRESSION: Stable capsular calcification of the right breast implant. Stable examination. Electronically Signed: Ilya Elliott, at 14:54 EDT , Service support ,
[2019-11-30] MEDS: 0.9% Saline Lock 10 ML Syringe IV (15:56)
== END ==
PROVIDERS: PCP Internal Medicine; Referring Provider Internal Medicine Hematology & Oncology; Visit Provider Internal Medicine Hematology & Oncology
DX: C34.90 Malignant neoplasm of unspecified part of unspecified bronchus or lung (principal); C77.9 Secondary and unspecified malignant neoplasm of lymph node, unspecified; R91.8 Other nonspecific abnormal finding of lung field
CPT/HCPCS: 71260; 74160; Q9967; A4216

== ENCOUNTER → 2019-12-28 11:17 | Outpatient (CLI) | payer OTHER, SELFPAY ==
[2019-05-29 09:01] VITALS: BMI 26.5
[2019-12-14 09:10] VITALS: BMI 25.7
[2019-12-28 08:49] VITALS: BMI 25.7
--- NOTE | 2019-12-28 11:27 | MRI_ITS ---
STUDY: MRI BRAIN WITH AND WITHOUT CONTRAST REASON FOR EXAM: Female, 59 years old. restaging h/o sclc, BRAIN METS S/P CHEMO TECHNIQUE: Standardized multiplanar fat and water weighted pulse sequences were obtained. DOTAREM 17CC VIA PORT was administered for the contrast portion of the examination. COMPARISON: 07/22/2019 FINDINGS: There is mild cerebral atrophy with widening of the extra-axial spaces and ventricular dilatation. There are a limited number of small white matter hyperintensities, distributed throughout the deep white matter tracts of the cerebral hemispheres, consistent with mild chronic white matter ischemic changes. There is no evidence for recent intracranial ischemia or other cause of cytotoxic edema on diffusion weighted imaging (DWI). Normal T2* images of the brain without demonstrated susceptibility artifact. There is no demonstrated hemosiderin stain. Normal bilateral basal ganglia. Normal thalami. There is no extra-axial fluid accumulation. Normal flow voids within the major intracranial circulation suggesting patency by spin echo criteria. Normal venous enhancement. Interval development of a 2 cm round peripherally enhancing mass within the anterior left temporal lobe with surrounding vasogenic edema consistent with metastatic disease. Normal sella turcica, pituitary gland, infundibular stalk, optic chiasm and hypothalamus. Normal tectal plate and pineal gland. Normal midbrain, dede and medulla. Normal cerebellum. Normal basal cisterns. Normal bilateral temporal bones. Normal bilateral internal auditory canals. No demonstrated orbital abnormality, within the constraints of a routine brain study. Normal visualized paranasal sinuses. Normal calvarium and skull base. Normal visualized soft tissue structures. Normal visualized upper cervical spine. MRI/Brain W/WO Contrast IMPRESSION: Interval development of 2 cm metastasis to the left temporal lobe. Electronically Signed: Nate Haynes MD at 13:44 EDT Tel , Service support ,
[2019-12-28] MEDS: 0.9% Saline Lock 10 ML Syringe IV (12:58)
== END ==
PROVIDERS: PCP Internal Medicine; Referring Provider Student in an Organized Health Care Education/Training Program; Visit Provider Student in an Organized Health Care Education/Training Program
DX: C34.90 Malignant neoplasm of unspecified part of unspecified bronchus or lung (principal); C79.31 Secondary malignant neoplasm of brain
CPT/HCPCS: 70553; A9575; A4216

== ENCOUNTER → 2020-02-25 07:05 | Outpatient (CLI) | payer MEDICARE, SELFPAY ==
[2019-05-29 09:01] VITALS: BMI 26.5
[2020-02-23 08:39] VITALS: BMI 25.0
--- NOTE | 2020-02-25 07:09 | CT_ITS ---
STUDY: CT CHEST WITH CONTRAST REASON FOR EXAM: Female, 59 years old. SMALL CELL LUNG CA RESTAGING, small cell lung with brain mets-radiation and chemotherapy, EMPHYSEMA, BREAST IMPLANTS RADIATION DOSAGE (If Supplied By Facility): CTDIvol = ( 10.98 ) mGy, DLP = ( 610.54 ) mGycm TECHNIQUE: Transaxial imaging was performed following intravenous administration of IV 100mL Isovue-300. Multiplanar coronal and sagittal images were reformatted. Individualized dose optimization techniques were used for this CT. COMPARISON: Comparison is made with prior study dated November 30, 2019. FINDINGS: A right-sided portacatheter is seen with the tip in the superior cava. Bilateral breast prosthesis with a dense rim calcification of the right breast implant. Minimal rim calcification involving the left breast implant. Emphysema of both lungs worse in the upper lobes with the small bolus changes. Stable biapical scarring. Stable calcified granuloma in the peripheral aspect of the right upper lobe. Stable calcified granuloma in the superior segment of the right lower lung. Stable mild increased markings at the lung bases suggestive of scarring. There is no demonstrated pleural abnormality. Normal heart and pericardium. Normal mediastinum. Calcified right hilar lymph nodes. Normal enhanced pulmonary arteries. Normal aorta arch and descending thoracic aorta. There are degenerative changes of the thoracic spine. Calcified splenic granulomas. CT/Chest WITH Contrast IMPRESSION: Stable examination. No acute abnormality is seen. Electronically Signed: Ilya Elliott, at 10:17 EDT , Service support ,
--- NOTE | 2020-02-25 07:09 | CT_ITS ---
STUDY: CT ABDOMEN WITH CONTRAST REASON FOR EXAM: Female, 59 years old. SMALL CELL LUNG CA RESTAGING, ON CHEMO, small cell lung with brain mets-radiation and chemotherapy, BREAST IMPLANTS RADIATION DOSAGE (If Supplied By Facility): CTDIvol = ( 10.98 ) mGy, DLP = ( 610.54 ) mGycm TECHNIQUE: Transaxial images were obtained post I.V. administration of IV 100mL Isovue-300, and without oral contrast. Sagittal and coronal images were reconstructed. Individualized dose optimization techniques were used for this CT. COMPARISON: Comparison is made with prior study dated November 30, 2019. FINDINGS: Bilateral breast implants with rim calcification more prominent on the right side. Stable 2 mm noncalcified nodule in the peripheral aspect of the right lower lobe. The visualized portions of the heart are within normal limits. Normal liver. Normal gallbladder and extrahepatic biliary system. There are multiple benign calcified granulomata of the spleen. Normal pancreas. Normal bilateral adrenal glands. Normal right kidney. Normal left kidney. Normal visualized stomach. Normal small intestine. There are multiple colonic diverticula consistent with diverticulosis. The appendix is visualized and appears normal. There is diffuse atherosclerotic calcification of the abdominal aorta, without a demonstrated aneurysm. Normal inferior vena cava. Normal retroperitoneum. Normal abdominal wall. Normal osseous structures. CT/Abdomen WITH IV Contrast IMPRESSION: Stable examination. Electronically Signed: Ilya Elliott, at 11:07 EDT , Service support ,
[2020-02-25] MEDS: 0.9% Saline Lock 10 ML Syringe IV (07:25)
== END ==
PROVIDERS: PCP Internal Medicine; Referring Provider Internal Medicine Hematology & Oncology; Visit Provider Internal Medicine Hematology & Oncology
DX: Z51.11 Encounter for antineoplastic chemotherapy (principal); C34.90 Malignant neoplasm of unspecified part of unspecified bronchus or lung; C77.9 Secondary and unspecified malignant neoplasm of lymph node, unspecified; R91.8 Other nonspecific abnormal finding of lung field
CPT/HCPCS: 71260; 74160; Q9967; A4216

== ENCOUNTER → 2020-04-21 10:15 | Outpatient (CLI) | payer MEDICARE, SELFPAY ==
[2019-05-29 09:01] VITALS: BMI 26.5
[2020-04-13 13:30] VITALS: BMI 24.6
--- NOTE | 2020-04-21 10:17 | NM_ITS ---
CLINICAL: 59-year-old female with history of carcinoma of the lung. WHOLE BODY 99m Tc MDP RADIONUCLIDE BONE SCINTIGRAPHY COMPARISON: Previous whole body bone scintigraphy study dated 10/07/2017, CT of the chest, abdomen reports 02/25/2020 FINDINGS: Following the intravenous administration of 25.0 mCi of 99m Tc MDP, whole body bone images reveal: 1. Increased radiopharmaceutical concentration is currently identified in the acromioclavicular and sternoclavicular compartments of both shoulders, bilateral elbows, patellofemoral compartments of both knees, fifth lumbar vertebra posteriorly on the right. 2. The remaining skeletal structures are scintigraphically unremarkable with normal-appearing renal images and urinary bladder activity identified. NM/Bone Scan Whole Body IMPRESSION: 1. The increase in radiopharmaceutical concentration currently defined in the bilateral shoulders, right and left elbows, both knees, the fifth lumbar vertebra is consistent with degenerative arthritis. 2. Overall compared to the previous whole body bone scintigraphy study dated 10/07/2017, there is no significant interval change. No current typical scintigraphic evidence of diffuse axial skeletal metastatic disease is expressed on the current examination. Electronically Signed: Nate Evans DO at 23:37 EDT Tel , Service support ,
[2020-04-21] MEDS: 0.9% Saline Lock 10 ML Syringe IV (10:40)
== END ==
PROVIDERS: PCP Internal Medicine; Referring Provider Internal Medicine Hematology & Oncology; Visit Provider Internal Medicine Hematology & Oncology
DX: C34.90 Malignant neoplasm of unspecified part of unspecified bronchus or lung (principal); C77.9 Secondary and unspecified malignant neoplasm of lymph node, unspecified; C79.31 Secondary malignant neoplasm of brain
CPT/HCPCS: 78306; A4216

== ENCOUNTER → 2020-05-03 14:44 | Outpatient (CLI) | payer MEDICARE, SELFPAY ==
[2019-05-29 09:01] VITALS: BMI 26.5
[2020-04-26 08:38] VITALS: BMI 24.0
--- NOTE | 2020-05-03 14:48 | CT_ITS ---
STUDY: CT CHEST WITH CONTRAST REASON FOR EXAM: Female, 59 years old. RESTAGING SCLC SUSPECTED RELAPSE RADIATION DOSAGE (If Supplied By Facility): CTDIvol = ( 8.3 ) mGy, DLP = ( 420.29 ) mGycm TECHNIQUE: Transaxial imaging was performed following intravenous administration of IV 100mL Isovue-370. Individualized dose optimization techniques were used for this CT. COMPARISON: 02/25/2020 FINDINGS: Right internal jugular chest port. Mild bilateral apical scarring. Mild emphysematous changes. Some subpleural scarring which is unchanged. No noncalcified nodule or mass. There is no demonstrated pleural abnormality. Normal heart and pericardium. Normal mediastinum. Normal hilar regions. Normal enhanced pulmonary arteries. Normal aorta arch and descending thoracic aorta. Normal osseous structures. There is no demonstrated abnormality of the visualized upper abdomen. CT/Chest WITH Contrast IMPRESSION: No change from 02/25/2020. No CT evidence of residual, recurrent, or metastatic bronchogenic carcinoma. Electronically Signed: Nate Haynes MD at 15:19 EDT Tel , Service support ,
--- NOTE | 2020-05-03 14:48 | CT_ITS ---
STUDY: CT ABDOMEN WITH CONTRAST REASON FOR EXAM: Female, 59 years old. RESTAGING SCLC SUSPECTED RELAPSE RADIATION DOSAGE (If Supplied By Facility): CTDIvol = ( 8.3 ) mGy, DLP = ( 420.29 ) mGycm TECHNIQUE: Transaxial images were obtained post I.V. administration of IV 100mL Isovue-370, and without oral contrast. Sagittal and coronal images were reconstructed. Individualized dose optimization techniques were used for this CT. COMPARISON: 02/25/2020 FINDINGS: The visualized lung bases are unremarkable. The visualized portions of the heart are within normal limits. Normal liver. Normal gallbladder and extrahepatic biliary system. Normal spleen. Normal pancreas. Normal bilateral adrenal glands. Normal right kidney. Normal left kidney. Normal visualized stomach. Normal small intestine. Normal colon. There is non-visualization of the appendix. Normal abdominal aorta. Normal inferior vena cava. Normal retroperitoneum. Normal abdominal wall. Normal osseous structures. CT/Abdomen WITH IV Contrast IMPRESSION: Normal enhanced CT of the abdomen. No CT evidence of metastatic bronchogenic carcinoma. Electronically Signed: Nate Haynes MD at 16:31 EDT Tel , Service support ,
[2020-05-03] MEDS: 0.9% Saline Lock 10 ML Syringe IV (15:16)
== END ==
PROVIDERS: PCP Internal Medicine; Referring Provider Internal Medicine Hematology & Oncology; Visit Provider Internal Medicine Hematology & Oncology
DX: C34.90 Malignant neoplasm of unspecified part of unspecified bronchus or lung (principal); C77.9 Secondary and unspecified malignant neoplasm of lymph node, unspecified; R91.8 Other nonspecific abnormal finding of lung field; C79.31 Secondary malignant neoplasm of brain
CPT/HCPCS: 71260; 74160; Q9967; A4216

== ENCOUNTER 2020-05-14 08:54 | Emergency (ER) | payer MEDICARE, SELFPAY ==
[2019-05-29 09:01] VITALS: BMI 26.5
[2020-05-09 08:44] VITALS: BMI 23.4
[2020-05-14 08:55] VITALS: BP 80/63; PULSE 72; RESP 15; TEMP 35.6; O2SAT 100; BMI 24.6
--- NOTE | 2020-05-14 09:07 | CT_ITS ---
STUDY: CT BRAIN WITHOUT CONTRAST REASON FOR EXAM: Female, 59 years old. Confusion today per . Hx lung cancer with brain mets, radiation and amp; chemotherapy, CVA and seizure. RADIATION DOSAGE (If Supplied By Facility): CTDIvol = ( 44.99 ) mGy, DLP = ( 796.11 ) mGycm TECHNIQUE: Transaxial CT imaging of the brain was performed without administration of intravenous contrast material. Individualized dose optimization techniques were used for this CT. COMPARISON: 02/13/2019 FINDINGS: Normal soft tissue structures. Normal calvarium. Normal size ventricles and extra-axial spaces for the patient''s age. Small punctate hyperdensity in the left frontal lobe on image 22 series 2 new since previous exam may represent focal hemorrhagic contusion. Calcification is possible. Normal basal ganglia and thalami. Normal brainstem. Normal cerebellum. There are no findings of an acute ischemic infarction. Normal visualized paranasal sinuses. CT/Brain/Head without Contrast IMPRESSION: 1. Small hyperdensity in the left frontal lobe could represent small hemorrhagic contusion or less likely calcification. Follow-up exam is recommended. 2. Otherwise no demonstrated acute intracranial process on this noncontrast examination. Electronically Signed: Mark Marcus MD at 10:32 EDT Tel , Service support ,
--- NOTE | 2020-05-14 09:09 | ED.VISSUMM ---
- ER Visit Summary Date of Service: 05/14/20 Chief Complaint: [Confusion] History of Present Illness: The patient is a 59 F [presents the emergency department with complaint of confusion. Patient brought in by her . Patient woke up and was very confused and disoriented. When she went to bed last night she was her normal self. states that she had an episode of confusion that lasted about a half an hour yesterday as well. No significant changes in her medications. Patient currently being treated for stage IV lung cancer that small cell. She is not had recent illness. No fevers. She denies any chest pain or shortness of breath. She denies abdominal pain. Patient has had metastasis to her brain. She is currently on Eliquis.] Physical Examination: [HEENT-PERRLA, EOMI. Cranial nerves II through XII grossly intact. TMs clear. Mucous membranes moist. No adenopathy. Patient confused and disoriented however she follows commands answers some questions appropriately. Diaphoresis. Cardiovascular-regular rate and rhythm without murmur or ectopy Lungs-clear to auscultation, chest wall stable without crepitus or subcu emphysema Abdomen-normoactive bowel sounds, soft, nontender, no rebound or rigidity, no peritoneal signs. Extremities-intact ?4, normal range of motion, normal pulses, atraumatic] Test Results: [Finger stick blood sugar obtained showed a glucose of 30. CBC with differential showed a white count 5.3, hemoglobin 10, hematocrit 30, platelet 63. Chemistries unremarkable. Blood sugar was 34 prior to treatment. Her LFTs were unremarkable. Urinalysis showed ketones 150 otherwise no signs of infection. CT scan of the right without contrast showed small hyperdensity in the left frontal lobe which could represent small hemorrhagic contusion or less likely calcification.] Emergency Department Course and Treatment: [Patient received a liter normal same fluid bolus and her blood pressure improved into the 120 systolic. Patient received 1 amp of D50 and sensorium improved immediately. Patient was able to eat. Case was discussed with hospitalist and who asked me to transfer patient to a tertiary care center due to the fact that we do not have neurosurgery available here and if patient has a intracranial hemorrhage and is on Eliquis patient would be better served at a tertiary care center that has neurosurgery available. Spoke with [facility] neurosurgeon as well as hospitalist who accepted transfer of patient.] Treatment Plan: [Transfer to [facility]] Disposition: [Transfer] Impression: [Intra-cranial hemorrhage Hypoglycemia-resolved Dehydration] This note was generated with [employer] dictation software. It may contain incorrect words, spelling, and punctuation that were not noted in review of the chart prior to signing ED Disposition - Plan for ED Patient: Referrals: Andrés Helms MD [Primary Care Provider] -
[2020-05-14] MEDS: 0.9% Normal Saline 1,000 ML 150 ML IV (09:15)
[2020-05-14] MEDS: Dextrose 50%-Water 25 GM/50 ML DISP.SYRIN IV (09:15)
[2020-05-14] MEDS: Ondansetron 4 MG/2 ML Vial IV (09:20)
[2020-05-14 09:35] LABS: Bedside Glucose 30 mg/dL (70-110)
[2020-05-14 09:35] LABS: Bedside Glucose 86 mg/dL (70-110)
[2020-05-14 09:39] LABS: Absolute Lymphocyte Count 1.67 X10^3/uL (0.83-4.51); Basophil# 0.05 X10^3/uL; Basophil% 0.9 % (0-1); Eosinophil# 0.44 X10^3/uL; Eosinophils% 8.3 % (0-5); Hematocrit 30.1 % (37-47); Hemoglobin 10.2 g/dL (12.0-15.0); Lymphocyte # 1.67 X10^3/ul (4.0); Lymphocyte % 31.6 % (19-41); Mean Corp Hgb Conc 33.9 g/dL (32-36); Mean Corpuscular Hgb 32.5 pg (27.0-32.0); Mean Corpuscular Volume 95.9 fL (81-99); Mean Platelet Vol. 10.3 fl (6.2-12.0); Monocyte# 1.15 X10^3/uL; Monocyte% 21.8 % (0-10); NRBC Flagged by Analyzer 0 % (0-5); Neutrophil # 1.96 X10^3/uL (2.7-7.7); Neutrophil % 37.2 % (47-70); Platelet Count 163 K/mm3 (150-450); RBC Distribution Width CV 14.6 % (11.6-14.6); Red Blood Count 3.14 M/mm3 (4.2-5.4); White Blood Count 5.3 K/mm3 (4.4-11.0)
[2020-05-14 09:53] LABS: ALB/GLOB Ratio 1.2 RATIO (0.9-2.4); AST(SGOT) 24 U/L (15-37); Alanine Aminotransfer ALT/SGPT 14 U/L (13-56); Alkaline Phosphatase 80 U/L (45-117); Anion Gap 12 (5-15); BUN 6 mg/dL (7-18); BUN/Creat Ratio 12.8 RATIO (10-20); Chloride 96 mmol/L (98-107); Creatinine, Serum 0.47 mg/dL (0.55-1.02); EST Glomerular Filtration Rate 144 mL/min (>60); Est Glom Filt Rate - Afr Amer 174 mL/min (>60); Estimated Creatinine Clearance 113.11 ml/min; Globulin 2.4 g/dL (2.2-4.2); Glucose 34 mg/dL (74-106); Potassium 3.9 mmol/L (3.5-5.1); Protein, Total 5.4 g/dL (6.4-8.2); Sodium Level 130 mmol/L (136-145)
[2020-05-14] MEDS: 0.9% Normal Saline 1,000 ML 999 ML IV (09:59)
[2020-05-14 10:00] LABS: Bedside Glucose 110 mg/dL (70-110)
[2020-05-14 10:52] LABS: Mucous, Urine 0 SEEN /hpf (<or=2+); Squamous Epithelial Cells - UA 0 SEEN /hpf (5-10); White Blood Cells 0 SEEN /hpf (0-5)
[2020-05-14 10:53] LABS: Color, Urine Yellow (Yellow); Glucose, Dipstick 100 mg/dl (Normal); Leukocyte Esterase-Dipstick Negative /ul (Negative); Nitrite-Dipstick Negative (Negative); Occult Blood-Urine 250 /ul (Negative); Protein-Dipstick Negative (Negative); Urine Bilirubin Dipstick Negative (Negative); Urine Clarity Clear (Clear); Urine Urobilinogen Normal (Normal)
[2020-05-14 10:59] LABS: Ketone-Dipstick 150 mg/dl (Negative)
[2020-05-14 11:01] LABS: Bacteria RARE /hpf (None Seen); Red Blood Cells-Urine 5-10 SEEN /hpf (0-5)
--- NOTE | 2020-05-14 11:39 | NURSING ---
CALLED [facility]. LEFT MESSAGE
[2020-05-14 12:51] LABS: Bedside Glucose 87 mg/dL (70-110)
[2020-05-14 13:21] VITALS: BP 135/80; PULSE 111; RESP 19; TEMP 36.9; O2SAT 97
[2020-05-14 13:22] VITALS: BP 135/80; PULSE 104; RESP 19
== END 2020-05-14 13:46 | disposition short-term general hospital (02) ==
PROVIDERS: Emergency Provider Emergency Medicine; PCP Internal Medicine
DX: I62.9 Nontraumatic intracranial hemorrhage, unspecified (principal); E86.0 Dehydration; C34.90 Malignant neoplasm of unspecified part of unspecified bronchus or lung; Z79.01 Long term (current) use of anticoagulants
CPT/HCPCS: 36591; 70450; 80053; 81001; 82140; 82962; 85025; 96361; 96374; 96375; 99285; J7030; A4216; J2405

== ENCOUNTER 2020-05-21 09:57 | Inpatient (IN) | payer MEDICARE, SELFPAY ==
[2019-05-29 09:01] VITALS: BMI 26.5
[2020-05-21] VITALS (7 sets, daily range): BP systolic 122–136; BP diastolic 71–80; PULSE 78–111; RESP 16–19; TEMP 36.4–37.5; O2SAT 96–100; BMI 22.8; BMI 23.5
--- NOTE | 2020-05-21 10:11 | CT_ITS ---
STUDY: CT BRAIN WITHOUT CONTRAST REASON FOR EXAM: Female, 59 years old. CONFUSION -- HX- STAGE 4 LUNG CA W/ BRAIN METS RADIATION DOSAGE (If Supplied By Facility): CTDIvol = ( 44.99 ) mGy, DLP = ( 812.98 ) mGycm TECHNIQUE: Transaxial CT imaging of the brain was performed without administration of intravenous contrast material. Individualized dose optimization techniques were used for this CT. COMPARISON: 05/14/2020 FINDINGS: Again noted is a left anterior frontal lesion with surrounding vasogenic edema without change since the prior examination. Again noted is a 4 mm hypodense lesion at the inferior left temporal lobe without change since prior examination. There are no demonstrated new lesions. Normal size ventricles and extra-axial spaces for the patient''s age. Normal white matter tracts of the cerebral hemispheres. There is no intracranial hemorrhage. There are no findings of an acute ischemic infarction. CT/Brain/Head without Contrast IMPRESSION: Stable left frontal and temporal lesions. No new lesions. Electronically Signed: Brittany Bailey MD at 11:56 EDT Tel , Service support ,
[2020-05-21 10:16] LABS: Bedside Glucose 158 mg/dL (70-110)
--- NOTE | 2020-05-21 10:16 | ED.DCSUM_ITS ---
- ER Visit Summary Date of Service: 05/21/20 Chief Complaint: Confusion History of Present Illness: The patient is a [address] Helms, Dr. Huggins, and Dr. Cruz. She has a history of small cell lung cancer with metastases to the brain. She underwent radiation for these. Her last chemotherapy was in March 28. She was seen last week for confusion and CT showed a questionable brain bleed. She was transferred to [facility] was there for 3 days. She had an MRI that showed a dark area that was not attributed to blood. They also did not think it was tumor per . reports patient became confused again at 3:00 this morning. He uses examples that she does not know where she is. She did no other daughter's name. She sat on the toilet for approximately 45 minutes without doing anything. On review of systems patient does complain of a little bit of abdominal pain. She denies any nausea, vomiting, or diarrhea. She does complain of generalized weakness. She denies any other complaints. Physical Examination: Vitals: Stable. Afebrile. General: Well-nourished and well-developed. Head: Normocephalic atraumatic. Neck: Supple, no lymphadenopathy. No JVD. Nontender. Cardiovascular: Regular rate and rhythm. No murmurs. Respiratory: No respiratory distress. Clear to auscultation bilaterally. Abdominal: Soft, nontender, nondistended, normal bowel sounds. No guarding, rebound, or peritoneal signs. Back: Nontender. Extremities: Nontender, no edema. Skin: Normal color, no rash. Neurologic: Alert and oriented ?1. Cranial nerves II through XII are intact. Normal strength and sensation. Psych: Normal affect. Test Results: Accu-Chek obtained on arrival is 158. BMP shows a sodium 134 and glucose 125. CBC shows a white count of 4.1 with 84 segmented neutrophils and 7 lymphocytes. H&H of 10.0 and 30.5. LFTs show total protein of 5.8 and albumin 3.0. UA has 25-50 red blood cells. No evidence of infection. Ammonia is normal. Clinical Impression(s) from Imaging Studies Brain CT 05/21/20 10:11 IMPRESSION: Stable left frontal and temporal lesions. No new lesions. Electronically Signed: Brittany Bailey MD at 11:56 EDT Tel , Service support , Emergency Department Course and Treatment: Patient is rested comfortably while here. I had a prolonged discussion with her . At this time he cannot take care of her at home. Treatment Plan: She will be discussed with the hospitalist and admitted for further evaluation and treatment. Disposition: Admitted in stable condition. Impression: 1. Confusion. 2. Small cell lung cancer with metastases to brain. This note was generated with [employer] software. It may contain incorrect words, spelling, and punctuation that were not noted in review of the chart prior to signing ED Disposition - Plan for ED Patient: Referrals: Andrés Helms MD [Primary Care Provider] -
[2020-05-21 10:32] LABS: Bacteria 0 SEEN /hpf (None Seen); Mucous, Urine 0 SEEN /hpf (<or=2+)
[2020-05-21 10:34] LABS: Color, Urine Yellow (Yellow); Glucose, Dipstick Normal (Normal); Ketone-Dipstick Negative (Negative); Leukocyte Esterase-Dipstick Negative /ul (Negative); Nitrite-Dipstick Negative (Negative); Occult Blood-Urine 250 /ul (Negative); Protein-Dipstick 30 mg/dl (Negative); Specific Gravity, Urine 1.015 (1.002-1.030); Urine Bilirubin Dipstick Negative (Negative); Urine Clarity Sl. Cloudy (Clear); Urine Urobilinogen Normal (Normal)
[2020-05-21 10:44] LABS: Red Blood Cells-Urine 25-50 SEEN /hpf (0-5); Squamous Epithelial Cells - UA 0-5 SEEN /hpf (5-10); White Blood Cells 0-5 SEEN /hpf (0-5)
[2020-05-21 11:19] LABS: Absolute Lymphocyte Count 0.27 X10^3/uL (0.83-4.51); Absolute Neutrophil Count 3.5 X10^3/uL (2.0-7.7); Hematocrit 30.5 % (37-47); Lymphocyte # 0.27 X10^3/ul (4.0); Lymphocyte % 6.6 % (19-41); Mean Corp Hgb Conc 32.8 g/dL (32-36); Mean Corpuscular Hgb 32.2 pg (27.0-32.0); Mean Corpuscular Volume 98.1 fL (81-99); Mean Platelet Vol. 10.1 fl (6.2-12.0); Monocyte# 0.36 X10^3/uL; Monocyte% 8.8 % (0-10); NRBC Flagged by Analyzer 0 % (0-5); Neutrophil # 3.46 X10^3/uL (2.7-7.7); Neutrophil % 84.1 % (47-70); POSITIVE DIFFERENTIAL YES; Platelet Count 171 K/mm3 (150-450); RBC Distribution Width CV 14.6 % (11.6-14.6); RBC Distribution Width SD 52.4 fl (35.1-43.9); Red Blood Count 3.11 M/mm3 (4.2-5.4); White Blood Count 4.1 K/mm3 (4.4-11.0)
[2020-05-21] MEDS: 0.9 % NaCl (Sterile) Posiflush 10 mL IV (11:20)
[2020-05-21 11:24] LABS: Differential Indicated SCAN CRITERIA MET
[2020-05-21 11:26] LABS: ALB/GLOB Ratio 1.1 RATIO (0.9-2.4); AST(SGOT) 23 U/L (15-37); Alanine Aminotransfer ALT/SGPT 15 U/L (13-56); Alkaline Phosphatase 90 U/L (45-117); Anion Gap 4 (5-15); BUN 9 mg/dL (7-18); BUN/Creat Ratio 14.2 RATIO (10-20); Calcium,Total 8.6 mg/dL (8.5-10.1); Chloride 99 mmol/L (98-107); Creatinine, Serum 0.64 mg/dL (0.55-1.02); EST Glomerular Filtration Rate 101 mL/min (>60); Est Glom Filt Rate - Afr Amer 122 mL/min (>60); Estimated Creatinine Clearance 83.06 ml/min; Globulin 2.8 g/dL (2.2-4.2); Glucose 125 mg/dL (74-106); Potassium 3.9 mmol/L (3.5-5.1); Protein, Total 5.8 g/dL (6.4-8.2); Sodium Level 134 mmol/L (136-145)
--- NOTE | 2020-05-21 12:20 | HP.PCM_ITS ---
History of Present Illness Date of Admission: 05/21/20 Chief Complaint: confusion The patient is a 59 year old F with an extensive past medical history as outlined which includes small cell lung cancer with metastasis to the brain for which she has undergone radiation and chemotherapy with her last chemo being March 28, 2020. Patient was seen in our facility about a week ago for confusion and CT of the brain done showed a questionable brain bleed so she was transferred to [facility] where she had an MRI of the brain that was done which was not thought to be due to a tumor or blood. She was subsequently discharged home. She subsequently followed up with her radiation oncologist who thought it might be a recurrence of the brain mets causing the lesion in the brain. Patient apparently became confused in the early hours of this morning around 3 AM and stated that patient did not know where she was and did not know her daughter's name and also sat on the toilet for about 45 minutes without doing anything. Family therefore brought her into the ED. At time of review she had no complaints. She was quite confused. In the ED, vitals show temperature of 97.6 Fahrenheit with blood pressure of 136/74, pulse rate of 111 and respiratory rate of 17. Pulse ox was 98% on room air. Chemistry showed sodium of 134 was otherwise unremarkable. CBC showed WBC of 4.1 with hemoglobin of 10 and platelets of 171. CT of the brain showed stable left frontal and temporal lesions with no new lesions. UA showed no evidence of UTI. She has been admitted to be managed for acute metabolic encephalopathy likely due to brain metastases.[] Past Medical History Past Medical History (Chronic Problems): Chronic Problems (Last Reviewed 05/09/20 @ 08:43 by Kareen Mancuso) Hypokalemia (Chronic) Hypomagnesemia (Chronic) Debility (Chronic) Brain metastases (Chronic) SIADH (syndrome of inappropriate ADH production) (Chronic) Anemia (Chronic) Pulmonary embolism (Chronic) Lung nodule, multiple (Chronic) Regional lymph node metastasis present (Chronic) Chemotherapy management, encounter for (Chronic) Adjustment disorder (Chronic) Small cell lung cancer in adult (Chronic) Seizure disorder (Chronic) Tobacco dependence in remission (Chronic) Medical History: Medical History (Last Reviewed 05/09/20 @ 08:43 by Kareen Mancuso) Small cell lung cancer in adult (Chronic) C34.90 Seizure disorder (Chronic) G40.909 Tobacco dependence in remission (Chronic) F17.201 Allergies No Known Allergies Allergy (Verified 05/21/20 09:58) REVIEWED ON 01-22-18 Home Medications: Ambulatory Orders Medication Instructions Recorded levetiracetam 250 mg tablet See Rx Instructions .ROUTE 09/03/19 .COMPLEX #180 tab Apixaban [Eliquis] 5 mg PO BID #60 tab 04/27/20 Demeclocycline HCl 300 mg PO DAILY 05/09/20 Oxycodone HCl/Acetaminophen 0.5 ea PO TID PRN 05/09/20 [Oxycodone-Acetaminophen 5-325] Furosemide 40 mg PO .Twice week PRN 05/14/20 Dexamethasone [Decadron] 4 mg PO DAILY #15 tab 05/19/20 Surgical History: Surgical History (Last Reviewed 05/09/20 @ 08:43 by Kareen Mancuso) H/O breast augmentation Z98.82 History of carpal tunnel release Z98.890 History of tubal ligation Z98.51 hammer toe repair med port placement Sep 2017 Surgical History: - Psychiatric History: No pertinent psych hx CHARGE GANG WEIGHER History: No pertinent CHARGE GANG WEIGHER history Lives: With Family Smoking Status: Former smoker Alcohol: None Drugs: None - *Family History Maternal Family History: Family History (Last Reviewed 05/09/20 @ 08:43 by Kareen Mancuso) Mother Breast cancer Father Cancer Sister Aneurysm History Items: - - no CVA Paternal Family History: Family History (Last Reviewed 05/09/20 @ 08:43 by Kareen Mancuso) Mother Breast cancer Father Cancer Sister Aneurysm History Items: No pertinent history Review of Systems Constitutional: Denies: Chills, Fever, Malaise, Weakness, Weight Change HEENT: Denies: Head Aches, Sinus Congestion, Sinus Drainage Cardiovascular: Denies: Chest Pain, Palpitations Respiratory: Denies: Cough, Shortness of Breath, Shortness of breath at rest, Shortness of breath upon exertion, Sputum production Gastrointestinal: Denies: Abdominal Pain, Nausea, Vomiting Genitourinary: Denies: Dysuria Musculoskeletal: Denies: Joint Pain, Joint Tenderness Skin: Denies: Rash, Wounds Neurological: Reports: Confusion. Denies: Focal weakness, Numbness, Tingling Psychiatric: Denies: Anxiety, Depression, Homicidal Ideations, Suicidal Ideations Hematologic/ Lymphatic: Denies: Easy Bruising, Easy Bleeding VTE Information - Inpt Only VTE Present on Admission: No VTE Pharm Prophylaxis ordered?: Yes Patient Problems: Active and Suspected Problems (Last Reviewed 05/09/20 @ 08:43 by Kareen Mancuso) Intractable nausea and vomiting (Acute) Dehydration (Acute) Acute prerenal azotemia (Acute) Hypocalcemia (Acute) - Physical Exam Vitals/I&O's: Vital Signs Temp Pulse Resp BP Pulse Ox 97.6 F L 85 19 H 134/80 H 98 05/21/20 09:58 05/21/20 12:07 05/21/20 12:07 05/21/20 12:07 05/21/20 12:07 Oxygen Delivery Method Room Air Weight: 137 lb Body Mass Index (BMI) 22.8 Finger Stick Blood Glucose 158 Intake and Output for Last 24 Hours 05/19/20 05/20/20 05/21/20 23:59 23:59 23:59 Intake Total 500 / 500 Balance 500 / 500 General: Alert, Cooperative, Confused, - - looks much older than stated age. HEENT: Atraumatic, PERRLA, EOMI, Normocephalic Oral: Dry Mucosa Neck: Supple, No JVD, Negative Carotid Bruits Lungs: Clear to auscultation, Normal air movement, No rhonchi, No wheeze, No rales Cardiovascular: Regular rate, Regular Rhythm, Normal S1, Normal S2, No murmurs Abdomen: Bowel Sounds Present, Soft, Non Tender, Non-Distended, No Hepato- splenomegaly Extremities: No clubbing, No cyanosis, No edema, Capillary Refill Less than 3 Seconds Skin: No rashes, No breakdown Musculoskeletal: No Tenderness to Palpation of Joints or Extremities Lymphatic: No Cervical, Supraclavicular, or Inguinal Adenopathy Neurological: Cranial nerves II-XII grossly intact, Neuro grossly intact, Motor Exam 5/5 strength throughout Psych/Mental Status: Flat Affect, - - confused Laboratory Results 05/21/20 10:09: POC Glucose 158 H 05/21/20 10:25: Urine Color Yellow, Urine Clarity Sl. Cloudy, Urine pH 7.0, Ur Specific [place] 1.015, Urine Protein 30 H, Urine Glucose (UA) Normal, Urine Ketones Negative, Urine Occult Blood 250 H, Urine Nitrite Negative, Urine Bilirubin Negative, Urine Urobilinogen Normal, Ur Leukocyte Esterase Negative, Urine RBC 25-50 SEEN, Urine WBC 0-5 SEEN, Ur Squamous Epith Cells 0-5 SEEN, Urine Bacteria 0 SEEN, Urine Mucus 0 SEEN 05/21/20 10:50: WBC 4.1 L, RBC 3.11 L, Hgb 10.0 L, Hct 30.5 L, MCV 98.1, MCH 32.2 H, MCHC 32.8, RDW Std Deviation 52.4 H, RDW Coeff of Sandhya 14.6, Plt Count 171, MPV 10.1, Immature Gran % (Auto) 0.500, Neut % (Auto) 84.1 H, Lymph % (Auto) 6.6 L, [place] % (Auto) 8.8, Eos % (Auto) 0.0, Baso % (Auto) 0.0, Absolute Neuts (auto) 3.5, Absolute Lymphs (auto) 0.27 L, Nucleated RBC % 0, Diff Path Review December05/21/20 10:50: Sodium 134 L, Potassium 3.9, Chloride 99, Carbon Dioxide 31.0, Anion Gap 4 L, BUN 9, Creatinine 0.64, Estim Creat Clear Calc 83.06, Est GFR (MDRD) Af Amer 122, Est GFR (MDRD) Non-Af 101, BUN/Creatinine Ratio 14.2, Glucose 125 H, Calcium 8.6, Total Bilirubin 0.70, AST 23, ALT 15, Alkaline Phosphatase 90, Total Protein 5.8 L, Albumin 3.0 L, Globulin 2.8, Albumin/Globulin Ratio 1.1 05/21/20 10:50: Ammonia 25.[address] 05/21/20 10:11 IMPRESSION: Stable left frontal and temporal lesions. No new lesions. Electronically Signed: Brittany Bailey MD at 11:56 EDT Tel , Service support , Current Medications Heparin Sodium (Beef Lung) () 50 units IV UD PRN PRN Reason: Port-a-Cath (VAD)Heparin Flush Sodium Chloride () 10 - 40 ml IV UD PRN PRN Reason: Port-a-Cath (VAD) Flush Sodium Chloride (0.9% Nacl (Sterile) Posiflush) 10 - 40 ml IV UD PRN PRN Reason: Port access or dressing change Last Admin: 05/21/20 11:20 Dose: 10 ml Documented by: Assessment/Plan All Active Problems (Last Reviewed 05/09/20 @ 08:43 by Kareen Mancuso) Vomiting (Acute) Intractable nausea and vomiting (Acute) Dehydration (Acute) Acute prerenal azotemia (Acute) Hypocalcemia (Acute) Non-ST elevation [place] (NSTEMI) (Acute) Encephalopathy (Acute) Severe hyponatremia (Acute) Chemotherapy induced neutropenia (Acute) 59 y/o admitted with a complaint of confusion # Acute metabolic encephalopathy * Etiology is unclear but it may be related to the new lesion found per MRI done at [place]. This was reviewed by her radiation oncologist Dr. Cruz who thought the increase play in contrast enhancement in the left frontal region of the previously treated lesion in 2019 which resolved but had now increased to about 12 mm could represent local disease recurrence versus radiation necrosis. * She has mild hyponatremia of 134. * Hold oral dexamethasone and start on IV Decadron. Hydrate patient gently with IV fluids. Fall precautions. PT OT consults. * Consult oncology- Discussed with Asmita Sommers CRA OFFICER. * #Seizure disorder: Likely due to brain mets. On Keppra. #Small cell lung cancer with metastasis to the brain: Oncology consulted. Having regular chemotherapy. DVT prophylaxis: On Eliquis CODE STATUS: * I initiated CODE STATUS discussion with her . got very upset and shouted that he was not going to answer any more questions because he had discussed the CODE STATUS with previous physicians and it should be on file. I informed that people's wishes could change and was my job to clarify patient's CODE STATUS as this was the first time I was seeing her. then stated, you are just asking questions to cover yourself in case we decide to martinez you doctors I informed that I was just doing my job by wishing to clarify the CODE STATUS so that we could provide the best care in line with the patient's wishes and her family's wishes. stated that he would not answer any questions about her CODE STATUS and that he did not want her to be on any machines. I did try to clarify whether he wanted her to be DNR CCA or DNR CC. still refused to answer and ask me to refer to previous notes * Per previous notes from February 07, 2019 per EMR, patient's then declared that he wanted her to be full code. This is the only code status documented per review of all previous H&Ps. * now however states that he does not want her to be on any machines but refuses to answer any more questions about it. * CODE STATUS currently undecided. Discussed with nursing solar installation crew supervisor; to try and get any records about code status. * Total face to face time spent: 18 mins OBSV E&M: 92342 Initial observation care L3 Procedures: 17369 Advncd Care Plan 30 Min
--- NOTE | 2020-05-21 13:45 | CASEMGMT ---
RN LACHO Face to Face with patient for initial transition planning/care coordination assessment. RN CM introduced self and role at [facility]. Patient lying in bed, alert and confused, at bedside. willing to participate in assessment and is able to answer all questions appropriately. Care providers, pharmacy, and demographics verified. wishes for patient to discharge home, denies need for home health at this time, but inquired regarding Palliative Care. RN CM provided Palliative pamphlet and updated SW. states he has no further needs or concerns at this time. CM to follow for discharge planning needs that may arise. PCP: Analia Specialists: Patriciaus, oncology, Anthony, radiation oncology Preferred Pharmacy: [facility] Insurance: [facility] Prescription Benefit: yes Living Will/HPOA: yes, [place] LNOK: Living Arrangements: Patient lives with in a 2 story home with bed and bath setup on first floor. 4 steps and railing to enter the home. Patient was independent at home prior to hospitalization. Transportation: DME/HHC: states patient has shower chair, raised toilet, cane, rollator at home. denies previous SNF, has had [facility] HHC in the past. denies need for HHC at this time. Disposition Plan: Patient to discharge home with family support and follow-up plans in place. Will monitor for need for HHC pending therapy. Evelia BRUNER, RN, CM
[2020-05-21] MEDS: 0.9% Normal Saline 1,000 ML 75 ML IV (14:26)
[2020-05-21] MEDS: dexAMETHasone 4 MG/ML Vial IV ×2 (14:27→18:51)
--- NOTE | 2020-05-21 16:24 | CASEMGMT ---
PRINCE MONK attempted to complete SALV[facility]OR form with patient's but he is out of the facility at this time. Patient unable to sign SALVADOR form as she is confused. Will attempted again at a later time.
[2020-05-21] MEDS: oxyCODONE 5 MG Tablet 2.5 MG PO (16:52)
[2020-05-21] MEDS: 0.9% Saline Lock 10 ML Syringe IV (18:51)
[2020-05-21] MEDS: levETIRAcetam 250 MG Tablet PO (22:10)
[2020-05-21] MEDS: APIXABAN 5 MG TABLET PO (22:10)
[2020-05-22] VITALS (9 sets, daily range): BP systolic 113–143; BP diastolic 57–93; PULSE 90–100; RESP 16–20; TEMP 36.8–37.4; O2SAT 97–99
[2020-05-22] MEDS: dexAMETHasone 4 MG/ML Vial IV ×4 (00:27→18:34)
[2020-05-22] MEDS: 0.9% Saline Lock 10 ML Syringe IV ×4 (00:28→18:36)
[2020-05-22 06:48] LABS: Absolute Lymphocyte Count 0.27 X10^3/uL (0.83-4.51); Absolute Neutrophil Count 3.6 X10^3/uL (2.0-7.7); Hematocrit 27.3 % (37-47); Hemoglobin 8.9 g/dL (12.0-15.0); Lymphocyte # 0.27 X10^3/ul (4.0); Lymphocyte % 6.7 % (19-41); Mean Corp Hgb Conc 32.6 g/dL (32-36); Mean Corpuscular Volume 98.2 fL (81-99); Mean Platelet Vol. 10.4 fl (6.2-12.0); Monocyte# 0.05 X10^3/uL; Monocyte% 1.2 % (0-10); NRBC Flagged by Analyzer 0 % (0-5); Neutrophil # 3.59 X10^3/uL (2.7-7.7); Neutrophil % 89.4 % (47-70); POSITIVE DIFFERENTIAL YES; Platelet Count 144 K/mm3 (150-450); RBC Distribution Width CV 14.7 % (11.6-14.6); RBC Distribution Width SD 53.1 fl (35.1-43.9); Red Blood Count 2.78 M/mm3 (4.2-5.4)
[2020-05-22 07:21] LABS: Anion Gap 6 (5-15); BUN 13 mg/dL (7-18); BUN/Creat Ratio 25.4 RATIO (10-20); Calcium,Total 8.5 mg/dL (8.5-10.1); Chloride 103 mmol/L (98-107); Creatinine, Serum 0.51 mg/dL (0.55-1.02); EST Glomerular Filtration Rate 129 mL/min (>60); Est Glom Filt Rate - Afr Amer 157 mL/min (>60); Estimated Creatinine Clearance 104.24 ml/min; Glucose 128 mg/dL (74-106); Potassium 3.8 mmol/L (3.5-5.1); Sodium Level 134 mmol/L (136-145)
--- NOTE | 2020-05-22 07:38 | PCM.PN.HOSP ---
Subjective: Patient seen and examined. She still remains confused. No active events overnight. Oncology consulted; LOGISTICS LOSS PREVENTION MANAGER Asmita Sommers is senior international tax manager. However, says he wants only Dr Chew to see patient, and is ok with patient waiting until Dr Chew is available tomorrow to be evaluated by oncology. She has remained hemodynamically stable. Vitals/I&O's: Vital Signs Temp Pulse Resp BP Pulse Ox 99.0 F 96 18 113/57 L 97 05/22/20 03:02 05/22/20 05:43 05/22/20 03:02 05/22/20 03:02 05/22/20 03:02 Oxygen Delivery Method Room Air Weight: 141 lb 7 oz Body Mass Index (BMI) 23.5 Finger Stick Blood Glucose 158 Intake and Output for Last 24 Hours 05/20/20 05/21/20 05/22/20 23:59 23:59 23:59 Intake Total 1030 / 1030 1247.5 / 1247.5 Balance 1030 / 1030 1247.5 / 1247.5 General: Alert, Cooperative, Confused, - - looks much older than stated age. HEENT: Atraumatic, PERRLA, EOMI, Normocephalic Oral: Dry Mucosa Neck: Supple, No JVD, Negative Carotid Bruits Lungs: Clear to auscultation, Normal air movement, No rhonchi, No wheeze, No rales Cardiovascular: Regular rate, Regular Rhythm, Normal S1, Normal S2, No murmurs Abdomen: Bowel Sounds Present, Soft, Non Tender, Non-Distended, No Hepato-splenomegaly Extremities: No clubbing, No cyanosis, No edema, Capillary Refill Less than 3 Seconds Skin: No rashes, No breakdown Musculoskeletal: No Tenderness to Palpation of Joints or Extremities Lymphatic: No Cervical, Supraclavicular, or Inguinal Adenopathy Neurological: Cranial nerves II-XII grossly intact, Neuro grossly intact, Motor Exam 5/5 strength throughout Psych/Mental Status: Flat Affect, - - confused Laboratory Results 05/21/20 10:09: POC Glucose 158 H 05/21/20 10:25: Urine Color Yellow, Urine Clarity Sl. Cloudy, Urine pH 7.0, Ur Specific [place] 1.015, Urine Protein 30 H, Urine Glucose (UA) Normal, Urine Ketones Negative, Urine Occult Blood 250 H, Urine Nitrite Negative, Urine Bilirubin Negative, Urine Urobilinogen Normal, Ur Leukocyte Esterase Negative, Urine RBC 25-50 SEEN, Urine WBC 0-5 SEEN, Ur Squamous Epith Cells 0-5 SEEN, Urine Bacteria 0 SEEN, Urine Mucus 0 SEEN 05/21/20 10:50: WBC 4.1 L, RBC 3.11 L, Hgb 10.0 L, Hct 30.5 L, MCV 98.1, MCH 32.2 H, MCHC 32.8, RDW Std Deviation 52.4 H, RDW Coeff of Sandhya 14.6, Plt Count 171, MPV 10.1, Immature Gran % (Auto) 0.500, Neut % (Auto) 84.1 H, Lymph % (Auto) 6.6 L, [place] % (Auto) 8.8, Eos % (Auto) 0.0, Baso % (Auto) 0.0, Absolute Neuts (auto) 3.5, Absolute Lymphs (auto) 0.27 L, Nucleated RBC % 0, Diff Path Review December05/21/20 10:50: Sodium 134 L, Potassium 3.9, Chloride 99, Carbon Dioxide 31.0, Anion Gap 4 L, BUN 9, Creatinine 0.64, Estim Creat Clear Calc 83.06, Est GFR (MDRD) Af Amer 122, Est GFR (MDRD) Non-Af 101, BUN/Creatinine Ratio 14.2, Glucose 125 H, Calcium 8.6, Total Bilirubin 0.70, AST 23, ALT 15, Alkaline Phosphatase 90, Total Protein 5.8 L, Albumin 3.0 L, Globulin 2.8, Albumin/Globulin Ratio 1.1 05/21/20 10:50: Ammonia 25.0 05/22/20 06:12: WBC Pending, RBC Pending, Hgb Pending, Hct Pending, MCV Pending, MCH Pending, MCHC Pending, RDW Std Deviation Pending, RDW Coeff of Sandhya Pending, Plt Count Pending, Neut % (Auto) Pending, Absolute Neuts (auto) Pending 05/22/20 06:12: Sodium 134 L, Potassium 3.8, Chloride 103, Carbon Dioxide 25.0, Anion Gap 6, BUN 13, Creatinine 0.51 L, Estim Creat Clear Calc 104.24, Est GFR (MDRD) Af Amer 157, Est GFR (MDRD) Non-Af 129, BUN/Creatinine Ratio 25.4 H, Glucose 128 H, Calcium 8.[address] 05/21/20 10:11 IMPRESSION: Stable left frontal and temporal lesions. No new lesions. Electronically Signed: Brittany Bailey MD at 11:56 EDT Tel , Service support , Current Medications Apixaban (Eliquis) 5 mg PO BID [facility] Last Admin: 05/21/20 22:10 Dose: 5 mg Documented by: Dexamethasone Sodium Phosphate (Decadron) 4 mg IV Q6 [facility] Last Admin: 05/22/20 06:34 Dose: 4 mg Documented by: Furosemide (Lasix) 40 mg PO .Twice week PRN PRN Reason: EDEMA Heparin Sodium (Beef Lung) () 50 units IV UD PRN PRN Reason: Port-a-Cath (VAD)Heparin Flush Heparin Sodium (Beef Lung) () 50 units IV UD PRN PRN Reason: Port-a-Cath (VAD)Heparin Flush Sodium Chloride () 250 mls @ 15 mls/hr IV .[id number] PRN PRN Reason: Additional IVPB Infusion Last Admin: 05/22/20 03:15 Dose: 15 mls/hr Documented by: Sodium Chloride () 250 mls @ 15 mls/hr IV .[id number] PRN PRN Reason: Saline Flush Sodium Chloride () 250 mls @ 15 mls/hr IV .[id number] PRN PRN Reason: Additional IVPB Infusion Levetiracetam (Keppra Tablet) 250 mg PO BID [facility] Last Admin: 05/21/20 22:10 Dose: 250 mg Documented by: Non-Formulary Medication (Demeclocycline Hcl) 300 mg PO DAILY [facility] Nutritional Formula (Lactose Free) (Ensure Enlive) 120 ml PO 4X/DAY [facility] Last Admin: 05/21/20 22:10 Dose: Not Given Documented by: Ondansetron HCl (Zofran) 4 mg IV Q8H PRN PRN PRN Reason: NAUSEA/VOMITING Oxycodone HCl (Oxyir) 2.5 mg PO 0800,1400,2000 PRN PRN Reason: Pain Score 1-05/28 Last Admin: 05/21/20 16:52 Dose: 2.5 mg Documented by: Sodium Chloride () 10 - 40 ml IV UD PRN PRN Reason: Port-a-Cath (VAD) Flush Last Admin: 05/22/20 06:34 Dose: 10 ml Documented by: Sodium Chloride (0.9% Nacl (Sterile) Posiflush) 10 - 40 ml IV UD PRN PRN Reason: Port access or dressing change Last Admin: 05/21/20 11:20 Dose: 10 ml Documented by: Sodium Chloride () 10 - 40 ml IV UD PRN PRN Reason: Port-a-Cath (VAD) Flush Sodium Chloride (0.9% Nacl (Sterile) Posiflush) 10 - 40 ml IV UD PRN PRN Reason: Port access or dressing change STROKE Vital Signs/Narrative: Vital Signs Pulse 05/22/20 05:43 96 Medical Necessity - Tobacco Use Smoking Status: Former smoker Assessment/Plan All Active Problems (Last Reviewed 05/09/20 @ 08:43 by Kareen Mancuso) Vomiting (Acute) Intractable nausea and vomiting (Acute) Dehydration (Acute) Acute prerenal azotemia (Acute) Hypocalcemia (Acute) Non-ST elevation [place] (NSTEMI) (Acute) Encephalopathy (Acute) Severe hyponatremia (Acute) Chemotherapy induced neutropenia (Acute) 59 y/o admitted with a complaint of confusion # Acute metabolic encephalopathy still persists, no significant change may be due to 12mm lesion in the left frontal region of the previously treated lesion, which could be a recurrence of brain malignancy vs radiation necrosis on IV decadrone fall precautions PT/OT consult #Seizure disorder: On Keppra. #Small cell lung cancer with metastasis to the brain: Oncology consulted. Having regular chemotherapy. wants to see only Dr Chew, doesnt want to see PUJA Sommers who is on this weekend. #History of DVT and PE: on eliqu DVT prophylaxis: On Eliquis Disposition: patient's enquired about palliative care services yesterday from rn field case manager. His goal is for her to be discharged home. OBSV E&M: [id number] Subsequent observation care L2
[2020-05-22 07:41] LABS: Differential Indicated SCAN CRITERIA MET
[2020-05-22] MEDS: oxyCODONE 5 MG Tablet 2.5 MG PO ×3 (10:26→19:59)
[2020-05-22] MEDS: APIXABAN 5 MG TABLET PO ×2 (10:28→21:41)
[2020-05-22] MEDS: levETIRAcetam 250 MG Tablet PO ×2 (10:28→21:41)
[2020-05-22] MEDS: CLARIFY ORDER NOTE (10:29)
--- NOTE | 2020-05-22 16:18 | NURSING ---
Assisted to bathroom and then to chair. Sitting in chair at this time with .
--- NOTE | 2020-05-22 19:42 | NURSING ---
this RN spoke with [facility] in pharmacy about Oxy 2.5 mg as a replacement for percocet that the pt reportedly takes at home at 0800, 1400, and 1999. The 1400 dose was given at 1608 today. This RN asked if it was still okay to go ahead and give the 1999 dose. Pharmacy said it was okay and still within the window this RN will give 2.5mg Oxy in the 2000 hour
[2020-05-23] VITALS (13 sets, daily range): BP systolic 114–135; BP diastolic 75–93; PULSE 90–112; RESP 16–18; TEMP 36.6–37.4; O2SAT 97–100
[2020-05-23] MEDS: dexAMETHasone 4 MG/ML Vial IV ×4 (00:57→17:25)
[2020-05-23] MEDS: 0.9% Saline Lock 10 ML Syringe IV ×4 (00:57→15:41)
[2020-05-23 06:15] LABS: Absolute Lymphocyte Count 0.26 X10^3/uL (0.83-4.51); Absolute Neutrophil Count 2.9 X10^3/uL (2.0-7.7); Basophil# 0.01 X10^3/uL; Basophil% 0.3 % (0-1); Hematocrit 28.4 % (37-47); Hemoglobin 9.6 g/dL (12.0-15.0); Lymphocyte # 0.26 X10^3/ul (4.0); Lymphocyte % 7.6 % (19-41); Mean Corp Hgb Conc 33.8 g/dL (32-36); Mean Corpuscular Hgb 32.3 pg (27.0-32.0); Mean Corpuscular Volume 95.6 fL (81-99); Mean Platelet Vol. 10.6 fl (6.2-12.0); Monocyte# 0.11 X10^3/uL; Monocyte% 3.2 % (0-10); NRBC Flagged by Analyzer 0 % (0-5); Neutrophil # 2.94 X10^3/uL (2.7-7.7); Neutrophil % 85.7 % (47-70); POSITIVE DIFFERENTIAL YES; Platelet Count 163 K/mm3 (150-450); RBC Distribution Width CV 14.6 % (11.6-14.6); RBC Distribution Width SD 51.3 fl (35.1-43.9); Red Blood Count 2.97 M/mm3 (4.2-5.4); White Blood Count 3.4 K/mm3 (4.4-11.0)
[2020-05-23 06:16] LABS: Differential Indicated SCAN CRITERIA MET
[2020-05-23 06:34] LABS: Differential Comment SCANNED
[2020-05-23 06:41] LABS: Anion Gap 7 (5-15); BUN 17 mg/dL (7-18); BUN/Creat Ratio 26.2 RATIO (10-20); Calcium,Total 8.4 mg/dL (8.5-10.1); Chloride 102 mmol/L (98-107); Creatinine, Serum 0.65 mg/dL (0.55-1.02); EST Glomerular Filtration Rate 98 mL/min (>60); Est Glom Filt Rate - Afr Amer 119 mL/min (>60); Estimated Creatinine Clearance 81.79 ml/min; Glucose 129 mg/dL (74-106); Potassium 3.7 mmol/L (3.5-5.1); Sodium Level 134 mmol/L (136-145)
[2020-05-23] MEDS: oxyCODONE 5 MG Tablet 2.5 MG PO (09:03)
[2020-05-23] MEDS: levETIRAcetam 250 MG Tablet PO ×2 (09:04→20:18)
[2020-05-23] MEDS: APIXABAN 5 MG TABLET PO ×2 (09:04→20:18)
--- NOTE | 2020-05-23 10:36 | CON.PCM_ITS ---
Date of Service: 05/21/20 Diagnosis: Catina Hall is a 59-year-old female diagnosed with extensive stage small cell lung cancer with disease involvement in the mediastinum and likely bilateral pulmonary parenchyma who is completed 2 cycles of Cisplatin/Irinotecan (10/2017), 2 cycles of Carboplatin/Etoposide (), single agent Taxol (05/2018) after having disease progression in the lungs, and Keytruda (initiated 10/20/2018) initiated with stable disease due to toxicity with Taxol. She was admitted 02/07/2019 with hyponatremia and confusion and MRI brain (02/11/2019) demonstrated a solitary ~1 cm metastasis in the left frontal lobe and a very small abnormality in the right frontal lobe vertex. She was switched back to weekly Taxol and interval brain MRI (03/18/2019 and (demonstrated focal progression of both the left frontal lobe and right frontal lobe vertex lesions. From 04/03/2019 - 04/15/2019: Received 3500 cGy in 5 fractions to the solitary brain metastasis. She then developed another brain metastasis in the left temporal area and from 01/06/2020 - 01/18/2020 she received 3500 cGy in 5 fractions to two adjacent left temporal lobe brain metastases. History of Present Illness: July 2017: Patient was admitted to the hospital at the end of July 2017 for altered mental status. During that hospitalization she was noted to be hyponatremic. Her sodium was low as 125. She was treated with IV fluids and was seen in consultation by neurology. They did not feel that she sustained a stroke. Rather, they felt that her altered mentation was a consequence of her serum sodium level. She then returned to the emergency department on August 28 with unresponsiveness and seizure-like activity. A CTA chest was obtained at that time which revealed no evidence for PE. However, there was evidence of subcarinal and bilateral hilar adenopathy, along with a 4 mm noncalcified lung nodule in the right lower lobe. There was additional note of a potential lytic lesion in the patient's spine. The patient was started on Keppra. The patient reportedly had an EEG completed which was not consistent with seizure-like activity. Echocardiogram from July 2017 revealed normal LV size with an ejection fraction of 55%. Pulmonary artery systolic pressure was estimated to be 46 mmHg. 09/06/2017: PET scan was performed for solitary pulmonary nodule. This demonstrated multiple subcentimeter lung nodules with findings too small to be accurately characterized by PET. There is hypermetabolic mediastinal lymphadenopathy which is concerning for malignancy. There is asymmetric increased activity within the right subscapularis muscle without underlying mass or abnormality. 09/27/2017: Patient underwent bronchoscopy with EBUS. Biopsy of level 7 and level 10 R lymph nodes were positive for malignancy consistent with small cell carcinoma. 10/07/2017: Bone scan was completed which demonstrated abnormalities consistent with degenerative arthritis and no evidence for metastatic disease. 10/14/2017: Initiated chemotherapy with Cisplatin/Irinotecan -12/2017: Due to toxicity chemotherapy is switched to carboplatin/etoposide 01/14/2018: CT chest abdomen pelvis was completed which demonstrated stable small pulmonary nodules measuring up to 4 mm with no new nodules or masses noted. No thoracic adenopathy is noted, there are calcified mediastinal and hilar lymph nodes consistent with prior granulomatous disease. No evidence of metastatic disease was noted in the abdomen or pelvis. 03/04/2018: CT chest abdomen pelvis was performed which demonstrated no demonstrated pleural abnormality, multiple small lymph nodes within the mediastinum which are normal size and morphology and no evidence for metastatic disease within the abdomen or pelvis. 03/27/2018: Patient was evaluated by medical oncology and plan was made to continue chemotherapy holiday and resume treatment if the disease recurs. 04/03/2018: Brain MRI was completed which demonstrated multiple foci of hyperintensity throughout the frontal white matter with differential diagnosis including small vessel ischemic white matter disease, demyelinating disease such as multiple sclerosis or vasculitides such as lupus, sarcoid or Lyme disease. There is no evidence for metastatic disease in the brain. 05/19/2018: CT chest abdomen and pelvis were completed. This demonstrated a new 9 mm nodule in the right lower lobe and stable subcentimeter pulmonary nodules measuring up to 5 mm. There is no other evidence of metastatic disease. 05/2018: Treated with single agent Taxol, completed 5 cycles and had stable disease but increased marrow toxicity 08/21/2018: CT chest abdomen pelvis was completed and this demonstrated stable pulmonary nodules with no evidence of lymphadenopathy. No other evidence of metastatic disease is identified. 10/20/2018: initiated Keytruda 10/27/2018: CT chest abdomen pelvis was completed and this demonstrated no concerning interval change, there is a persistent 8 mm right lower lobe pulmonary nodule and no evidence of metastatic disease 02/07/2019: Patient was admitted to the hospital for worsening hyponatremia with associated confusion and generalized weakness. 02/07/2019: CT brain without contrast was performed which demonstrated no abn ormalities. Next 02/11/2019: MRI brain with contrast was performed and this demonstrated a left frontal rim-enhancing lesion with mild surrounding edema measuring 7 mm which is concerning for metastatic focus given appearance. There is a punctate region of high signal within the medial right frontal cortex consistent with small embolic ischemia. 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 02/12/2019: Patient was evaluated by internal medicine for follow-up after hospitalization. At this time she reported that mental status was gradually improving back to baseline. 02/13/2019: Patient presented to the emergency room with 2 days of altered mental status. 02/13/2019: CT brain without contrast was performed which demonstrated a left anterior parasagittal frontal lobe 8 mm hyperdense lesion with mild surrounding vasogenic edema corresponding to the MRI demonstrated enhanced lesion which is suspicious for metastatic disease. There is a vague right parasagittal frontal lobe 3 mm hyperdensity at the vertex which may represent a developing focus of metastatic disease and on the MRI exam this is demonstrated at is a tiny area of restricted diffusion. No other parenchymal abnormalities are identified. 02/17/2019: CT chest abdomen pelvis was completed. This demonstrated resolution of a right lower lobe ovoid nodule which was seen in the previous exam. Stability of several bilateral very small pulmonary nodules. No evidence of adenopathy. No evidence of metastatic disease identified in the abdomen/pelvis. 03/18/2019: Brain MRI was completed which demonstrated again a left frontal lobe subcortical metastasis with rim enhancement measuring 1.1 x 1 cm and previously measured 0.9 x 0.8 cm. There is a cortically based metastasis in the high right frontal lobe vertex with contrast enhancement measuring 6 mm, this previously measured approximately 3 mm. From 04/03/2019 - 04/15/2019: Received 3500 cGy in 5 fractions to the solitary left frontal brain metastasis. 05/21/2019: CT chest/abdomen/pelvis was performed. This demonstrated stable emphysema with mild to moderately improved but persistent scattered bilateral groundglass opacities which are nonspecific. There is bilateral pulmonary nodules most not significantly changed with slightly increased lower lobe nodule measuring 4 mm and no evidence of metastatic disease identified in the abdomen/pelvis. 05/22/2019: Patient underwent MRI brain due to having increased altered mental status, this exam was moved up from its original schedule date. This demonstrated periventricular white matter ischemic changes without evidence of acute infarct, persistent left frontal lobe metastasis which has decreased in size from the prior exam now measuring 5 mm. No new metastatic lesions are identified. 06/22/2019: systemic therapy changed to topotecan due to progression of disease. 07/22/2019: MRI brain with and without contrast was performed. The previously noted frontal lobe metastatic lesion is no longer evident. There are no new lesions consistent with metastatic disease. No other abnormalities identified. 07/22/2019: CT chest/abdomen/pelvis with contrast was performed. This demonstrated stable COPD changes and scattered pulmonary scarring with stable scattered 4 mm and smaller bilateral pulmonary nodules. There is no evidence for adenopathy or distant metastatic disease. 11/30/2019: CT chest with contrast was performed which demonstrated diffuse emphysematous changes worse in the upper lobes with bilateral apical scarring worse in the right apex. There is a stable calcified granuloma in the peripheral lateral aspect of the right upper lobe. Stable mild increased markings at the lung bases suggestive of scarring. No pleural abnormality identified. Normal mediastinum without adenopathy. Overall stable exam. 11/30/2019: CT abdomen with contrast demonstrated stable capsular calcification of the right breast implant but no evidence of metastatic disease. 12/28/2019: MRI brain with and without contrast was performed which demonstrated mild cerebral atrophy with widening of the extra-axial spaces and ventricular dilation as well as a limited number of small white matter hyperintensities distributed throughout the deep white matter tracts of the cerebral hemispheres consistent with mild chronic white matter ischemic changes. There has been an interval development of a 2 cm round peripherally enhancing mass within the anterior left temporal lobe with surrounding vasogenic edema consistent with me tastatic disease. Previously noted lesions are not identified and there is no other new areas of metastatic disease. From 01/06/2020 - 01/18/2020: Received 3500 cGy in 5 fractions to two adjacent left temporal lobe brain metastases 04/13/2020 cervical and thoracic spine x-ray was completed due to back pain. This demonstrated multilevel degeneration disc disease. Facet arthropathy and uncovertebral hypertrophy with some neuroforamen stenosis. There is mild compression deformity of the T7, T8, and T9 vertebra suggestive of old mild compression fractures. No lytic or blastic osseous processes noted. 04/21/2020: Bone scan was performed demonstrated increased radiopharmaceutical concentration defined in the bilateral shoulders, right and left elbows, both knees, and the fifth lumbar vertebra consistent with degenerative arthritis. Overall there has been no significant change when compared to the scan 10/07/2017. There is no evidence for metastatic disease. 05/03/2020: CT chest/abdomen with contrast was performed. This demonstrated mild bilateral apical lung scarring and mild emphysematous changes. There is some subpleural scarring which is unchanged. No noncalcified nodular masses present. Mediastinum appears normal. No change from prior scan dated 02/25/2020. Within the abdomen there is no evidence of abnormality. 05/14/2020: Patient presented to the emergency room with increased confusion. Patient was found to have a blood sugar of 30. She was treated with a fluid bolus for low blood pressure and D50. Patient was transferred to [facility] given lack of neurosurgery at [facility] and risk for potential intracranial hemorrhage while patient is on Eliquis. 05/14/2020 CT brain without contrast was performed. This demonstrated a small hyperdensity in the left frontal lobe which may represent a small hemorrhagic contusion or less likely calcification. Otherwise no evidence of intracranial process or other abnormality. 05/15/2020: MRI brain with and without contrast was performed there is a 12 mm enhancing left frontal lesion with mild associated edema. There is a punctate T1 hyperintense focus within the lesion. There is an 8 mm T1 hyperintense lesion in the left lateral temporal lobe with no associated edema. Radiation Treatment History: 1) From 04/03/2019 - 04/15/2019: Received 3500 cGy in 5 fractions to the solitary left frontal brain metastasis. 2) From 01/06/2020 - 01/18/2020: Received 3500 cGy in 5 fractions to two adjacent left temporal lobe brain metastases Interval History: Patient was seen in her hospital chair resting comfortably. History was obtained mostly from her given her current level of confusion. I saw her in the office on 05/19/2020. She became acutely confused during the middle the night on Saturday and she was brought into the hospital for further evaluation. CT of the head demonstrated stability of a left temporal lesion measuring 4 mm and also stability of the left frontal lesion with small amount of swelling, this appears very consistent with the MRI completed about a week ago. She had steroids increased and believes she has been slowly improving. She denies dysuria, urinary frequency, fever/chills, cough, sore throat. She denies headaches, vision changes, focal weakness/numbness. She does have slowness to respond to questioning which is not new for her. She has been losing weight over the last 3 months due to reduced appetite and lack of interest in food. They started Decadron on Saturday at 4 mg once per day and have been taking it since then. She denies increased burning or reflux. She denies new sites of pain. She denies other problems or concerns at this time. Family History (Last Reviewed 05/09/20 @ 08:43 by Kareen Mancuso) Mother Breast cancer Father Cancer brain and lung Sister Aneurysm Medical History (Last Reviewed 05/09/20 @ 08:43 by Kareen Mancuso) Small cell lung cancer in adult (Chronic) Seizure disorder (Chronic) Tobacco dependence in remission (Chronic) Surgical History (Last Reviewed 05/09/20 @ 08:43 by Kareen Mancuso) H/O breast augmentation (Acute) History of carpal tunnel release (Acute) History of tubal ligation (Acute) hammer toe repair (Acute) med port placement (Acute) Sep 2017 Social History - Tobacco Smoking Status Former smoker Social History - Living Arrangements Patients Living Arrangements With Significant Other Home Medications Medication Instructions Recorded levetiracetam 250 mg tablet See Rx Instructions .ROUTE 09/03/19 .COMPLEX #180 tab Apixaban [Eliquis] 5 mg PO BID #60 tab 04/27/20 Demeclocycline HCl 300 mg PO DAILY 05/09/20 Oxycodone HCl/Acetaminophen 5 - 325 tab PO TID PRN 05/09/20 [Oxycodone-Acetaminophen 5-325] Furosemide 40 mg PO .Twice week PRN 05/14/20 Dexamethasone [Decadron] 4 mg PO DAILY #15 tab 05/19/20 Levetiracetam [Keppra] 250 mg PO BID 05/21/20 Allergy/AdvReac Type Severity Reaction Status Date / Time No Known Allergies Allergy Verified 05/21/20 13:51 Review of Systems: A 12-point review of systems was completed and was negative except for what is noted in the HPI/Interval History and by the nurse. Height/Weight/BMI: Height: 5 ft 5 in Weight: 141.4 lbs Vital Signs Temperature 98.1 F 05/23/20 09:00 Temperature Source Oral 05/23/20 09:00 Pulse Rate 101 H 05/23/20 09:00 Pulse Strength Normal (2+) 05/22/20 20:00 Respiratory Rate 16 05/23/20 09:00 Respiratory Effort Non-Labored 05/23/20 01:12 Respiratory Depth Normal 05/23/20 01:12 Respiratory Pattern Normal 05/23/20 01:12 Blood Pressure 125/88 H 05/23/20 09:00 Blood Pressure Mean 100 05/23/20 09:00 Blood Pressure Source Monitor 05/23/20 09:00 Blood Pressure Position Sitting 05/23/20 09:00 Blood Pressure Location Left Arm 05/23/20 09:00 Pulse Ox 100 05/23/20 09:00 Oxygen Delivery Method Room Air 05/23/20 09:00 Physical Exam: ECO KARNOFSKY SCORE: 60% CONSTITUTIONAL: Well-developed, well-nourished, and in no apparent distress. NECK: Supple,with no thyromegaly, and non-tender. Trachea midline. No cervical or supraclavicular adenopathy noted. CARDIAC: Regular rate and rhythm. Normal S1, S2. No murmurs, rubs, or gallops. PULMONARY/CHEST: Lungs are clear to auscultation and percussion bilaterally. No wheezes, rhonchi, or crackles noted. No increased work of breathing. ABDOMINAL: Abdomen soft, non-tender, non-distended. No hepatomegaly. Normoactive bowel sounds in all four quadrants. No guarding, rebound. BACK: Straight and aligned. No CVA tenderness. Axial skeleton non-tender to percussion. EXTREMITIES: Full range of motion in all four extremities, with normal strength equally and symmetrically. No evidence of edema. No clubbing. NEUROLOGICAL EXAM: Answers questions slowly but mostly appropriately. Alert to person and place but not time, was able to answer questions about grandchildren that she was not able to answer 2 days ago. Cranial nerves II through XII are grossly intact. No focal neurological deficit. Speech is fluent. There is no upper or lower extremity sensory deficit or motor deficit. Muscle strength is 5/5 in all muscle groups. Gait not tested. No dysmetria. PSYCHIATRIC: Appropriate mood and affect for the clinical situation. Imaging: As per HPI Laboratory Data: Laboratory Tests 05/23/20 05/23/20 06:05 06:05 WBC 3.4 L Hgb 9.6 L Plt Count 163 Sodium 134 L Potassium 3.7 Chloride 102 Carbon Dioxide 25.0 Anion Gap 7 BUN 17 Creatinine 0.65 Glucose 129 H Calcium 8.4 L 05/21/2020: UA unremarkable Assessment/Plan: Catina Hall is a 59-year-old female diagnosed with extensive stage small cell lung cancer with disease involvement in the mediastinum and likely bilateral pulmonary parenchyma who is completed 2 cycles of Cisplatin/Irinotecan (10/2017), 2 cycles of Carboplatin/Etoposide (), single agent Taxol (05/2018) after having disease progression in the lungs, and Keytruda (initiated 10/20/2018) initiated with stable disease due to toxicity with Taxol. She was admitted 02/07/2019 with hyponatremia and confusion and MRI brain (02/11/2019) demonstrated a solitary ~1 cm metastasis in the left frontal lobe and a very small abnormality in the right frontal lobe vertex. She was switched back to weekly Taxol and interval brain MRI (03/18/2019 and (demonstrated focal progression of both the left frontal lobe and right frontal lobe vertex lesions. From 04/03/2019 - 04/15/2019: Received 3500 cGy in 5 fractions to the solitary brain metastasis. She then developed another brain metastasis in the left temporal area and from 01/06/2020 - 01/18/2020 she received 3500 cGy in 5 fractions to two adjacent left temporal lobe brain metastases. I evaluated and examined the patient and discussed with the patient and her . She has new onset confusion and is not oriented to time currently. Per her she has improved since Saturday and now is able to name her grandchildren as well as other thing she was struggling with. I reviewed the findings of the CT head which demonstrated stability of the left temporal lesion as well as left frontal lesion, there is a small amount of swelling and all of these findings are consistent with the MRI completed last week at [facility]. UA is negative and she has no evidence of infection and there appears to be no evidence of metabolic cause of encephalopathy, sodium and glucose are normal. She has been slowly but progressively declining over the recent months in terms of reduced appetite and weight loss as well as increased generalized weakness and fatigue. Most recent CT chest/abdomen/pelvis and bone scan completed last month demonstrated no evidence of extracranial disease. MRI completed last week demonstrated increased enhancement measuring about 12 mm in the left frontal area exactly in the same location as a previously treated metastasis. This was treated about a year ago and it is unclear at this time if this represents disease recurrence or potentially radiation necrosis. Either way I would recommend given the swelling a slow taper of Decadron and repeat MRI as scheduled in about 7 weeks unless her condition worsens. It is unclear what her current confusion is related to but likely it is multifactorial and includes this progressive decline in performance status, previous [employer] radiation albeit focal, and 2 years of on and off use of systemic therapy for small cell lung cancer. I would recommend reducing Decadron to 4 mg once per day and following taper instructions as an outpatient that were provided for her last week, her was in agreement to help execute this. Medical oncology is also planning to meet with the patient today and weigh in on thoughts. I would recommend treating her confusion supportively with close monitoring and discharge when ready and she will follow-up with me as an outpatient as already scheduled and plans to call if further questions or concerns develop. Thank you for allowing me to participate in the management and care of your patient. If I may answer any questions in the interim, please do not hesitate to contact me at any time. Yury Cruz DO, MS [employer], Department of Radiation Oncology [facility] Inpatient E&M: [id number] Init Hosp L2
--- NOTE | 2020-05-23 11:57 | CASEMGMT ---
Intro role of CM to patient and her . [employer] form explained re: Observation status for treatment of confusion. Explained hospitalization will be paid per? insurance policy for Outpatient billing?and condition will continue to be evaluated for Inpt necessity. Also let pt know that [facility] sends paper in the billing packet with their phone number if questions arise. Discussed Pharmacy section of [employer] form and self administered medication guideline.? verbalizes understanding, questions answered and does not have further questions. Form signed by , and placed in chart, copy to pt. ROSITA MORRISON BSN CM
--- NOTE | 2020-05-23 12:05 | CON.PCM_ITS ---
- Problem List (1) Small cell lung cancer in adult Status: Chronic (2) Lung metastases Status: Chronic (3) Brain metastases Status: Chronic (4) Debility Status: Chronic (5) SIADH (syndrome of inappropriate ADH production) Status: Chronic (6) Pulmonary embolism Status: Chronic (7) Regional lymph node metastasis present Status: Chronic (8) Seizure disorder Status: Chronic Consult Referring Physician: Hospitalist Consult Results: Metastatic small cell lung cancer Subjective Date of Service:: 05/23/20 Chief Complaint: Lung cancer, confusion History of Present Illness: * Patient is a 59-year-old female ex-smoker who presented in late 2017 following a seizure and found to have a low sodium. Further workup in August 2017 included CAT scan of the chest, PET scan, and bone scan showed mediastinal and right hilar adenopathy, multiple bilateral lung nodules. EBUS in September 2017 biopsy confirmed small cell lung cancer. Brain imaging did not show metastatic disease in the [employer] then. Patient was initially seen by Dr. Moses then by myself and was treated with systemic therapy as summarized below for the goal of palliation plus or minus modest survival advantage for stage IV disease. * November 2017 she was hospitalized with bilateral pulmonary embolism and was started on long-term anticoagulation. * Her initial presentation was with a seizure, she was treated with Keppra, the drug was withdrawn when her disease went into remission however she had recurrent seizures in 2018 and was placed on Keppra for long time since. * March 2019 developed brain metastases treated with SBRT and again in January 2020 for [employer] recurrence. * Since February 2020 her disease outside the [employer] has been stable by imaging but due to increasing cumulative bone marrow toxicity from prolonged exposure to chemotherapy and declining performance status, she has been off systemic therapy. Her most recent imaging of the chest and abdomen were April 2020 showing no clear evidence for recurrent disease outside the [employer]. * Her most recent brain imaging was concerning for possible [employer] recurrence or radiation necrosis 05/15/2020: MRI brain with and without contrast was performed there is a 12 mm enhancing left frontal lesion with mild associated edema. There is a punctate T1 hyperintense focus within the lesion. There is an 8 mm T1 hyperintense lesion in the left lateral temporal lobe with no associated edema. She was seen by Dr. Cruz in consultation, placed on oral steroids with a plan to repeat imaging in a short interval and attempt to further clarify whether this is a [employer] recurrence in previously irradiated area or radiation necrosis. Treatment summary and responses: Cisplatin-irinotecan -10/2017 (2 cycles) excess toxicity (GI) MS Carboplatin- etoposide -12/2017 (2 CYCLES) v. good MS Taxol, single agent May, - 2018 (5 cycles) Stable disease, But increasing Bone marrow toxicity and fatigue Keytruda October 20, 2018 - January 14, 2019 (5 cycles) SD but had [employer] progression and relapse of hyponatremia. Taxol single agent resumed 02/18/2019-05/06/2019 stable disease then progression Topotecan June 22, 2019 (1 cycle): Stable disease but intolerant due to toxicities. Gemcitabine August 24-March 14, 2020, had SD but increasing bone marrow toxicities and systemic therapy on hold as of March 28, 2020 SBRT brain 04/03-04/09 at [facility]00 cGy in 5 fractions. And January 2020. Past Medical History: Chronic Problems (Last Reviewed 05/09/20 @ 08:43 by Kareen Mancuso) Lung metastases (Chronic) Hypokalemia (Chronic) Hypomagnesemia (Chronic) Debility (Chronic) Brain metastases (Chronic) SIADH (syndrome of inappropriate ADH production) (Chronic) Anemia (Chronic) Pulmonary embolism (Chronic) Lung nodule, multiple (Chronic) Regional lymph node metastasis present (Chronic) Chemotherapy management, encounter for (Chronic) Adjustment disorder (Chronic) Small cell lung cancer in adult (Chronic) Seizure disorder (Chronic) Tobacco dependence in remission (Chronic) Past Medical/Surgical History: Past Medical History - Most Recent Inpatient Visit Past Medical History Start: 05/21/20 13:0 8 Text: Status: Complete Freq: ONCE Protocol: Document 05/21/20 13:08 TC (Rec: 05/21/20 14:04 TC [id number]) BMI Required to complete PMH What is Patient's BMI 23.5 Neurologic Medical History Hx Stroke/TIA No Hx Dementia/Alzheimer's No Hx Parkinson's Disease No Hx Seizures Yes: ON KEPPRA Hx Multiple Sclerosis No Hx Migraines No Cardiac Medical History VTE Present on Admission No Hx of Deep Vein Thrombosis/VTE/PE Yes: dvt/pe Hx Hypertension No Hx Chest Pain/Angina No Hx Heart Attack Yes: nstemi January 2019 Hx Cardiac Surgery/Stents/Etc. No Hx Heart Failure No Hx Pacemaker/AICD No Hx Irregular Heartbeat and/or Afib No Hx Anticoagulant Therapy Yes: ELIQUIS Query Text:(Coumadin, Aspirin, Plavix, Xarelto, etc.) Hx Pain in Legs when Walking/Leg Cramps Yes: NIGHT LEG CRAMP Respiratory Medical History Hx COPD Yes Hx Emphysema Yes Hx Smoking Yes: QUIT 2017, FORMER 38 YR HX Smoking Status Former smoker Hx Smoking Cessation Date 08/19/16 Hx Smoking Cessation Counseling No Hx Tobacco Use in last 12 months No Hx Sleep Apnea No CPAP No Do you snore loudly (louder than talking No or can be heard through closed doors)? Do you often feel tired/ fatigued/ Yes sleepy during daytime? Has anyone observed you stop breathing No during sleep? STOP Results Negative GI Medical History Hx Ulcer No Hx Hepatitis No Hx Cirrhosis No Hx GI Bleed No Hx Unplanned Weight Loss Yes Genitourinary Medical History Indwelling Catheter in Place on Arrival/ No Admission Hx Renal Disease No Hx Dialysis No Musculoskeletal History Hx Arthritis Yes: IN THE BACK Hx Rheumatoid Arthritis Yes Endocrine Medical History Hx Diabetes No Hx Thyroid Disease No Hematologic Medical History Hx of Blood Transfusion No Hx of Transfusion in last 3 Months No Ever experience any problems with No transfusion(s)? Hx of Preganancy in last 3 Months No Nurse Filling Out Transfusion & TCLEVIDEN Questions: Date: 05/21/20 Time: 14:02 Psycho/Social Medical History Hx Depression No Hx Anxiety No Hx Behavior Disorder No Hx Alcohol Use Yes: LONG TIME AGO Hx Substance Use No Other Medical History Hx Blood Disorders Yes Hx Anemia No Hx Cancer Yes: small cell lung-last chemo 4 weeks ago Hx Drug Resistant Organism No Wound/Pressure Injury Present on Arrival No /Admission Query Text:If yes, chart assessment in Shift/Clinical Findings Central Line/PICC/VAD Present on Arrival No /Admission Antibiotics within last 7 days? No Comments METS TO BRAIN Risk for Readmission Number of Risk Factors 8 At Risk for Readmission Patient is At Risk For Readmission Patient is eligible for Call Back Y Past Medical History (Last Reviewed 05/09/20 @ 08:43 by Kareen Mancuso) Small cell lung cancer in adult (Chronic) Seizure disorder (Chronic) Tobacco dependence in remission (Chronic) Past Surgical History (Last Reviewed 05/09/20 @ 08:43 by Kareen Mancuso) H/O breast augmentation (Acute) History of carpal tunnel release (Acute) History of tubal ligation (Acute) hammer toe repair (Acute) med port placement (Acute) Maternal Family History: Family History (Last Reviewed 05/09/20 @ 08:43 by Kareen Mancuso) Mother Breast cancer Father Cancer Sister Aneurysm Family History: - - no CVA Paternal Family History: Family History (Last Reviewed 05/09/20 @ 08:43 by Kareen Mancuso) Mother Breast cancer Father Cancer Sister Aneurysm Family History: No pertinent history - Social History Lives: With Family Smoking Status: Former smoker Alcohol: None Drugs: None Allergies/Adverse Reactions: Allergy/AdvReac Type Severity Reaction Status Date / Time No Known Allergies Allergy Verified 05/21/20 13:51 Review of Systems Constitutional:: Reports: Weakness, Fatigue, Weight loss, Appetite change. Denies: Fever, Sweats, Chills Cardiovascular:: Reports: Dyspnea on exertion. Denies: Chest pain, Palpitations, Orthopnea, PND, Shortness of breath Respiratory: Reports: Shortness of breath upon exertion. Denies: Cough, Hemoptysis, Shortness of Breath, Wheezing Gastrointestinal:: Reports: Constipation. Denies: Abdominal pain, Nausea, Vomiting, Diarrhea, Hematochezia Genitourinary: Denies: Dysuria, Hematuria, 15, Flank pain Musculoskeletal:: Denies: Back pain, Myalgia, Arthralgia Skin: Denies: Rash, Skin Changes, Wounds Neurological:: Reports: Memory loss - Has been slowly progressive over the past few months, - - There had been no recent witnessed seizures by who attends to her most of the time but not all the time. Patient stated that it is conceivable that she might have had a seizure not witnessed by him prior to her confusion episode.. Denies: Headache, Dizziness, Visual changes, Tinnitus, Hearing loss Psychiatric: Denies: Anxiety, Depression, Homicidal Ideations, Suicidal Ideations Vital Signs Temperature 98.1 F 05/23/20 09:00 Temperature Source Oral 05/23/20 09:00 Pulse Rate 101 H 05/23/20 09:00 Pulse Strength Normal (2+) 05/22/20 20:00 Respiratory Rate 16 05/23/20 09:00 Respiratory Effort Non-Labored 05/23/20 01:12 Respiratory Depth Normal 05/23/20 01:12 Respiratory Pattern Normal 05/23/20 01:12 Blood Pressure 125/88 H 05/23/20 09:00 Blood Pressure Mean 100 05/23/20 09:00 Blood Pressure Source Monitor 05/23/20 09:00 Blood Pressure Position Sitting 05/23/20 09:00 Blood Pressure Location Left Arm 05/23/20 09:00 Pulse Ox 100 05/23/20 09:00 Oxygen Delivery Method Room Air 05/23/20 09:00 - Physical Exam General: Cooperative, No apparent distress, - - Cachectic, ECOG 2, oriented in person and place but not time and recent memory recall is impaired HEENT: Atraumatic, PERRLA, EOMI, Normocephalic Oropharynx:: Dry mucosa Neck:: Supple, Trachea midline, - - Port okay. Negative for: JVD, bilateral Cardiac:: Regular rate, Regular rhythm, Normal S1, Normal S2. Negative for: Murmur Lungs: Clear to auscultation, Diminished, Excusion symmetrical. Negative for: Rhonchi, Wheezes Abdomen:: Soft, Non-tender, Non-distended Extremities:: Edema - Minimal at the ankles. Negative for: Cyanosis Neurological: Neuro grossly intact - No signs of lateralization Skin:: Ecchymosis - Extremities. Negative for: Lesions, Rash, Petechiae Psychiatric:: Appropriate affect, Euthymic Lymphatics:: Negative for: Cervical lymphadenopathy, Supraclavicular lymphadenopathy Laboratory Data: Laboratory Tests 05/23/20 05/23/20 Range/Units 06:05 06:05 WBC 3.4 L (4.4-11.0) K/mm3 RBC 2.97 L (4.2-5.4) M/mm3 Hgb 9.6 L (12.0-15.0) g/dL Hct 28.4 L (37-47) % MCV 95.6 (81-99) fL MCH 32.3 H (27.0-32.0) pg MCHC 33.8 (32-36) g/dL RDW Std Deviation 51.3 H (35.1-43.9) fl RDW Coeff of Sandhya 14.6 (11.6-14.6) % Plt Count 163 (150-450) K/mm3 MPV 10.6 (6.2-12.0) fl Immature Gran % (Auto) 3.200 H (0.0-0.9) % Neut % (Auto) 85.7 H (47-70) % Lymph % (Auto) 7.6 L (19-41) % Webb % (Auto) 3.2 (0-10) % Eos % (Auto) 0.0 (0-5) % Baso % (Auto) 0.3 (0-1) % Absolute Neuts (auto) 2.9 (2.0-7.7) X10^3/uL Absolute Lymphs (auto) 0.26 L (0.83-4.51) X10^3/uL Nucleated RBC % 0 (0-5) % Differential Comment SCANNED Diff Path Review May foll Sodium 134 L (136-145) mmol/L Potassium 3.7 (3.5-5.1) mmol/L Chloride 102 (98-107) mmol/L Carbon Dioxide 25.0 (21.0-32.0) mmol/L Anion Gap 7 (5-15) BUN 17 (7-18) mg/dL Creatinine 0.65 (0.55-1.02) mg/dL Estim Creat Clear Calc 81.79 ml/min Est GFR (MDRD) Af Amer 119 (>60) mL/min Est GFR (MDRD) Non-Af 98 (>60) mL/min BUN/Creatinine Ratio 26.2 H (10-20) RATIO Glucose 129 H (74-106) mg/dL Calcium 8.4 L (8.5-10.1) mg/dL Diagnostic Data: Diagnostic Data Brain CT 05/21/20 10:11 IMPRESSION: Stable left frontal and temporal lesions. No new lesions. Electronically Signed: Brittany Bailey MD at 11:56 EDT Tel , Service support , Assessment and Plan 59-year-old female ex-smoker who presented in early 2017 with altered mental status, and seizures secondary to hyponatremia. Further workup revealed metastatic stage IV small cell lung cancer to mediastinal lymph nodes and lungs. She has been extensively treated with systemic therapy (see under HPI for summary) and has been off systemic therapy since February 2020 due to cumulative bone marrow toxicity and failing performance status. Nonetheless her systemic disease outside the [employer] has been and is stable remission and the most recent imaging of April 2020. In the course of her malignancy she developed several malignancy related complications among which: 1- Brain metastases status post SBRT in March 2019 and again for recurrence in January 2020. Brain imaging April 2020 is concerning for possible recurrence in a previously irradiated area or radiation necrosis. 2-SIADH currently controlled with demeclocycline. 3-seizures on long-term Keppra. An attempt at weaning in 2018 caused recurrence. 4-Malignancy induced hypercoagulability with bilateral pulmonary embolism November 2017, on long-term systemic anticoagulation. 5-Malignant cachexia with increasing debility and weight loss. Has been seen by nutrition service on several occasions 6-peripheral edema secondary to malnutrition and SIADH, managed with as needed diuresis. Recommendations: #1 Continue to hold systemic therapy gemcitabine. Options for systemic chemotherapy and dosing are limited due to limited bone marrow reserve from extensive prior chemotherapy and poor performance status. Recent improvement in WBC/ANC noted when she was placed on high-dose steroids for possible [employer] recurrence #2 Continue support for electrolyte abnormalities: a) Hyponatremia due to SIADH back on demeclocycline . b) hypokalemia, secondary to diuretics. Had been on an oral potassium supplement (diet plus or minus prescription) when she takes Lasix . c) hypocalcemia, partly secondary to hypoalbuminemia. Advised to continue her on an oral vitamin D and calcium supplement. #3 continue long-term VTE secondary prophylaxis with anticoagulant. She elected to take Eliquis and is tolerating it well. #4 Continue Keppra for seizures prophylaxis. Update level check and adjust dose if necessary (under care of PCP) #5 palliative referral offered and accepted in early 2019 then patient and dismissed service. Today after discussion patient agreed to resume palliative service with anticipation that upgrading to hospice hospice may be needed in the near future. #6 Continue low-dose Lasix 20 mg as needed to control peripheral edema. #7 Systemic steroids as instructed by radiation oncology. #8 Pain control is satisfactory, under outpatient care of pain management Seen With her impression and plan as above outlined discussed and their questions answered. Gage Huggins MD Tourist Home Keeper, [facility] Divisions of Medical Oncology & Hematology Department of Internal Medicine [place] [id number] This note was generated using a voice recognition system software. Although it was reviewed by the author prior to finalization, it may still contain incorrect words, spelling, and punctuation that were not noted when reviewing prior to saving. If a clinically significant typo or inaccurately typed phrase is noted, please notify the author. Medications: Prescriptions This Visit Medication Instructions Recorded Levetiracetam [Keppra] 250 mg PO BID 05/21/20 Primary Care Provider: Dr. Andrés Helms MD Referring Provider:
[2020-05-23 12:16] LABS: Pathologist Review Reviewed
--- NOTE | 2020-05-23 13:20 | CT_ITS ---
STUDY: CTA CHEST REASON FOR EXAM: Female, 59 years old. TACHYCARDIA, SMALL CELL LUNG CA, BREAST AUGMENTATION RADIATION DOSAGE (If Supplied By Facility): CTDIvol = ( 4.86 ) mGy, DLP = ( 177.03 ) mGycm TECHNIQUE: The examination was performed with the intravenous administration of IV 75mL Isovue-370. Post-processing of the angiographic images was performed, with multiplanar reformation and 3D reconstruction. Individualized dose optimization techniques were used for this CT. COMPARISON: 05/03/2020 FINDINGS: A right-sided portacatheter is seen with the tip in the superior cava. Bilateral breast prosthesis with a dense rim calcification of the right breast implant. Minimal rim calcification involving the left breast implant. Normal enhancement of the main pulmonary artery and right and left pulmonary arteries. Normal enhancement of the bilateral peripheral pulmonary arteries. There is no demonstrated pulmonary embolism. Normal thoracic aorta and visualized great vessels. There is no demonstrated aortic dissection. Normal heart and pericardium. Normal mediastinum. Normal hilar regions. Emphysema of both lungs worse in the upper lobes with the small bolus changes. Stable biapical scarring. Stable calcified granuloma in the peripheral aspect of the right upper lobe. Stable calcified granuloma in the superior segment of the right lower lung. Stable mild increased markings at the lung bases suggestive of scarring. There is no demonstrated pleural abnormality. Normal pleura. Normal chest wall structures. Normal osseous structures. Normal visualized upper abdomen. CT/CTA Chest W/WO Contrast IMPRESSION: No demonstrated pulmonary embolism or arterial dissection. Emphysema of both lungs worse in the upper lobes with the small bolus changes. Stable biapical scarring. Stable calcified granuloma in the peripheral aspect of the right upper lobe. Stable calcified granuloma in the superior segment of the right lower lung. Stable mild increased markings at the lung bases suggestive of scarring. There is no demonstrated pleural abnormality. Electronically Signed: Dee Draper, at 14:56 EDT Tel , Service support ,
--- NOTE | 2020-05-23 13:22 | EKG12_ITS ---
Test Reason : Blood Pressure : / mmHG Vent. Rate : 105 BPM Atrial Rate : 105 BPM P-R Int : 170 ms QRS Dur : 074 ms QT Int : 368 ms P-R-T Axes : 080 056 104 degrees QTc Int : 486 ms Sinus tachycardia Septal infarct , age undetermined T wave abnormality, consider anterior ischemia Abnormal ECG Confirmed by RAMAKRISHNA GONZALEZ, EDWAR ([id number]), purchase request editor ASHLEY HOOVER ([id number]) on 05/25/2020 10:20:02 AM Referred By: SHAHLA Confirmed By:EDWAR DURBIN MD
--- NOTE | 2020-05-23 14:02 | PCA ---
Pt information faxed [facility] to [facility]. fax number :[phone]
--- NOTE | 2020-05-23 15:25 | PCM.PN.HOSP ---
Subjective: Patient seen and examined. She feels much better today and is much more alert and oriented. She has no other complaints. Vitals/I&O's: Vital Signs Temp Pulse Resp BP Pulse Ox 98.4 F 108 H 16 133/83 H 100 05/23/20 14:24 05/23/20 14:24 05/23/20 14:24 05/23/20 14:24 05/23/20 14:24 Oxygen Delivery Method Room Air Weight: 141 lb 7 oz Body Mass Index (BMI) 23.5 Finger Stick Blood Glucose 158 Orthostatic Vital Signs Start: 05/23/20 14:10 Freq: q24h Status: Active Protocol: Activity Type Activity Date Activity User E-Sign Co-Sign Detail Recorded Client Recorded Date Recorded By Document 05/23/20 12:45 KLT [id number] 05/23/20 14:11 KLT 05/23/20 12:45 Orthostatic Vitals Standing -Blood Pressure (90/60-120/80) 131/90 H -Extremity Use Right Arm -Pulse Rate (60-100) 109 H Sitting -Blood Pressure (90/60-120/80) 135/93 H -Extremity Use Right Arm -Pulse Rate (60-100) 112 H Lying -Blood Pressure (90/60-120/80) 131/92 H -Extremity Use Right Arm -Pulse Rate (60-100) 108 H Intake and Output for Last 24 Hours 05/21/20 05/22/20 05/23/20 23:59 23:59 23:59 Intake Total 1030 / 1030 2521.25 / 2521.25 650 / 650 Output Total 200 / 200 750 / 750 Balance 1030 / 1030 2321.25 / 2321.25 -100 / -100 General: Alert, Cooperative, oriented x 3 today - - looks much older than stated age. HEENT: Atraumatic, PERRLA, EOMI, Normocephalic Oral: Dry Mucosa Neck: Supple, No JVD, Negative Carotid Bruits Lungs: Clear to auscultation, Normal air movement, No rhonchi, No wheeze, No rales Cardiovascular: Regular rate, Regular Rhythm, Normal S1, Normal S2, No murmurs Abdomen: Bowel Sounds Present, Soft, Non Tender, Non-Distended, No Hepato-splenomegaly Extremities: No clubbing, No cyanosis, No edema, Capillary Refill Less than 3 Seconds Skin: No rashes, No breakdown Musculoskeletal: No Tenderness to Palpation of Joints or Extremities Lymphatic: No Cervical, Supraclavicular, or Inguinal Adenopathy Neurological: Cranial nerves II-XII grossly intact, Neuro grossly intact, Motor Exam 5/5 strength throughout Psych/Mental Status: normal affect Laboratory Results 05/21/20 10:50: Diff Path Review Reviewed 05/23/20 06:05: WBC 3.4 L, RBC 2.97 L, Hgb 9.6 L, Hct 28.4 L, MCV 95.6, MCH 32.3 H, MCHC 33.8, RDW Std Deviation 51.3 H, RDW Coeff of Sandhya 14.6, Plt Count 163, MPV 10.6, Immature Gran % (Auto) 3.200 H, Neut % (Auto) 85.7 H, Lymph % (Auto) 7.6 L, Lane % (Auto) 3.2, Eos % (Auto) 0.0, Baso % (Auto) 0.3, Absolute Neuts (auto) 2.9, Absolute Lymphs (auto) 0.26 L, Nucleated RBC % 0, Differential Comment SCANNED, Diff Path Review May 05/23/20 06:05: Sodium 134 L, Potassium 3.7, Chloride 102, Carbon Dioxide 25.0, Anion Gap 7, BUN 17, Creatinine 0.65, Estim Creat Clear Calc 81.79, Est GFR (MDRD) Af Amer 119, Est GFR (MDRD) Non-Af 98, BUN/Creatinine Ratio 26.2 H, Glucose 129 H, Calcium 8.4 L 05/23/20 08:05: Levetiracetam Pending Diagnostic Data Brain CT 05/21/20 10:11 IMPRESSION: Stable left frontal and temporal lesions. No new lesions. Electronically Signed: Brittany Bailey MD at 11:56 EDT Tel , Service support , Chest CTA 05/23/20 13:20 IMPRESSION: No demonstrated pulmonary embolism or arterial dissection. Emphysema of both lungs worse in the upper lobes with the small bolus changes. Stable biapical scarring. Stable calcified granuloma in the peripheral aspect of the right upper lobe. Stable calcified granuloma in the superior segment of the right lower lung. Stable mild increased markings at the lung bases suggestive of scarring. There is no demonstrated pleural abnormality. Electronically Signed: Dee Draper, at 14:56 EDT Tel , Service support , Current Medications Apixaban (Eliquis) 5 mg PO BID [facility] Last Admin: 05/23/20 09:04 Dose: 5 mg Documented by: Demeclocycline HCl (Declomycin) 300 mg PO DAILY [facility] Last Admin: 05/23/20 09:04 Dose: 300 mg Documented by: Dexamethasone Sodium Phosphate (Decadron) 4 mg IV Q6 [facility] Last Admin: 05/23/20 12:54 Dose: 4 mg Documented by: Furosemide (Lasix) 40 mg PO .Twice week PRN PRN Reason: EDEMA Heparin Sodium (Beef Lung) () 50 units IV UD PRN PRN Reason: Port-a-Cath (VAD)Heparin Flush Heparin Sodium (Beef Lung) () 50 units IV UD PRN PRN Reason: Port-a-Cath (VAD)Heparin Flush Sodium Chloride () 250 mls @ 15 mls/hr IV .[id number] PRN PRN Reason: Additional IVPB Infusion Last Infusion: 05/22/20 21:44 Dose: Infused Documented by: Sodium Chloride () 250 mls @ 15 mls/hr IV .[id number] PRN PRN Reason: Saline Flush Sodium Chloride () 250 mls @ 15 mls/hr IV .[id number] PRN PRN Reason: Additional IVPB Infusion Sodium Chloride () 1,000 mls @ 75 mls/hr IV .[id number] [facility] Stop: 05/24/20 04:34 Levetiracetam (Keppra Tablet) 250 mg PO BID [facility] Last Admin: 05/23/20 09:04 Dose: 250 mg Documented by: Nutritional Formula (Lactose Free) (Ensure Enlive) 120 ml PO 4X/DAY [facility] Last Admin: 05/23/20 14:11 Dose: Not Given Documented by: Ondansetron HCl (Zofran) 4 mg IV Q8H PRN PRN PRN Reason: NAUSEA/VOMITING Oxycodone HCl (Oxyir) 2.5 mg PO 0800,1400,2000 PRN PRN Reason: Pain Score 1-10 Last Admin: 05/23/20 09:03 Dose: 2.5 mg Documented by: Sodium Chloride () 10 - 40 ml IV UD PRN PRN Reason: Port-a-Cath (VAD) Flush Last Admin: 05/23/20 12:54 Dose: 10 ml Documented by: Sodium Chloride (0.9% Nacl (Sterile) Posiflush) 10 - 40 ml IV UD PRN PRN Reason: Port access or dressing change Last Admin: 05/21/20 11:20 Dose: 10 ml Documented by: Sodium Chloride () 10 - 40 ml IV UD PRN PRN Reason: Port-a-Cath (VAD) Flush Sodium Chloride (0.9% Nacl (Sterile) Posiflush) 10 - 40 ml IV UD PRN PRN Reason: Port access or dressing change STROKE Vital Signs/Narrative: Vital Signs Temp Pulse Pulse Pulse Pulse Resp BP 05/23/20 14:24 98.4 F 108 H 16 133/83 H 05/23/20 12:45 108 H 112 H 109 H 05/23/20 12:02 106 H BP BP BP Pulse Ox 05/23/20 14:24 100 05/23/20 12:45 131/92 H 135/93 H 131/90 H 05/23/20 12:02 Medical Necessity - Tobacco Use Smoking Status: Former smoker Assessment/Plan All Active Problems (Last Reviewed 05/09/20 @ 08:43 by Kareen Mancuso) Vomiting (Acute) Intractable nausea and vomiting (Acute) Dehydration (Acute) Acute prerenal azotemia (Acute) Hypocalcemia (Acute) Non-ST elevation [place] (NSTEMI) (Acute) Encephalopathy (Acute) Severe hyponatremia (Acute) Chemotherapy induced neutropenia (Acute) 59 y/o admitted with a complaint of confusion # Acute metabolic encephalopathy Has improved significantly. may be due to 12mm lesion in the left frontal region of the previously treated lesion, which could be a recurrence of brain malignancy vs radiation necrosis Reviewed by radiation oncology and oncologist today. Both felt that the symptoms were likely possibly due to the recurrence versus radiation necrosis in the left frontal region. Will cut down Decadron to 4 mg daily. To follow-up with radiation oncology and oncology on outpatient basis. fall precautions #Tachycardia: Patient now has sinus tachycardia. Heart rate went up to the 130s today. Denied any chest pain or shortness of breath. Orthostatics were negative. CTA done of the chest was negative for any PE. Hydrate gently with IV fluids today and monitor. #Seizure disorder: On Keppra. will check Keppra level #Small cell lung cancer with metastasis to the brain: Oncology reviewed patient today Per oncology, now having palliative chemotherapy only. patient and now interested in palliative care. 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
--- NOTE | 2020-05-23 15:27 | PCA ---
[facility] spoke with patients and will follow up at discharge at home. please fax discharge summary to [facility] at discharge. fax number: [phone]
[2020-05-23] MEDS: 0.9% Normal Saline 1,000 ML 75 ML IV (15:40)
[2020-05-24] VITALS (7 sets, daily range): BP systolic 118–129; BP diastolic 75–90; PULSE 83–112; RESP 16–18; TEMP 36.8–36.9; O2SAT 97–98
[2020-05-24] MEDS: 0.9% Saline Lock 10 ML Syringe IV ×2 (05:11→15:14)
[2020-05-24 06:53] LABS: Absolute Neutrophil Count 1.9 X10^3/uL (2.0-7.7); Hematocrit 29.6 % (37-47); Hemoglobin 9.8 g/dL (12.0-15.0); Lymphocyte % 12.4 % (19-41); Mean Corp Hgb Conc 33.1 g/dL (32-36); Mean Corpuscular Hgb 32.3 pg (27.0-32.0); Mean Corpuscular Volume 97.7 fL (81-99); Mean Platelet Vol. 10.5 fl (6.2-12.0); Monocyte# 0.19 X10^3/uL; Monocyte% 7.9 % (0-10); NRBC Flagged by Analyzer 0 % (0-5); Neutrophil # 1.86 X10^3/uL (2.7-7.7); Neutrophil % 76.8 % (47-70); POSITIVE DIFFERENTIAL YES; Platelet Count 185 K/mm3 (150-450); RBC Distribution Width CV 14.6 % (11.6-14.6); RBC Distribution Width SD 50.8 fl (35.1-43.9); Red Blood Count 3.03 M/mm3 (4.2-5.4); White Blood Count 2.4 K/mm3 (4.4-11.0)
[2020-05-24 06:54] LABS: Differential Indicated SCAN CRITERIA MET
[2020-05-24 07:44] LABS: Anion Gap 7 (5-15); BUN 19 mg/dL (7-18); BUN/Creat Ratio 28.5 RATIO (10-20); Calcium,Total 8.2 mg/dL (8.5-10.1); Chloride 104 mmol/L (98-107); Creatinine, Serum 0.67 mg/dL (0.55-1.02); EST Glomerular Filtration Rate 95 mL/min (>60); Est Glom Filt Rate - Afr Amer 115 mL/min (>60); Estimated Creatinine Clearance 79.34 ml/min; Glucose 127 mg/dL (74-106); Potassium 3.2 mmol/L (3.5-5.1); Sodium Level 135 mmol/L (136-145)
[2020-05-24] MEDS: levETIRAcetam 250 MG Tablet PO (08:44)
[2020-05-24] MEDS: APIXABAN 5 MG TABLET PO (08:44)
[2020-05-24] MEDS: dexAMETHasone 4 MG Tablet PO (08:53)
[2020-05-24 09:10] LABS: Magnesium 2.5 mg/dL (1.6-2.6)
--- NOTE | 2020-05-24 09:20 | ECHOD_ITS ---
Reason For Study: ARRHYTHMIA Procedure This was a 2D Doppler, Color Flow transthoracic echocardiogram. Myocardial strain analysis was performed in this exam to aid in the assessment of cardiac function. Exam performed portable in patient room. Left Ventricle Normal LV size. Severe segmental systolic dysfunction (see wall motion). The estimated ejection fraction is 20 %. Infero-Basal: Severely Hypokinetic. Basal inferoseptal: Severely Hypokinetic. Basal anteroseptal: Severely Hypokinetic. Mid-Anterior : Hypokinetic. Mid-Lateral : Hypokinetic. Mid-Posterior: Hypokinetic. Mid-Inferior: Akinetic. Mid-inferoseptal : Akinetic. Mid-anteroseptal : Akinetic. Lebo : Hypokinetic. Right Ventricle Normal RV size. Normal systolic function. Atria Normal left atrium. Normal right atrium. No doppler evidence for ASD. Mitral Valve There is no mitral annular calcification. Mild diffuse mitral valve thickening. Mild papillary muscle dysfunction of the mitral valve. Mild (1+) eccentric mitral valve insufficiency. Tricuspid Valve Normal tricuspid valve. Trivial tricuspid valve insufficiency. Right ventricular systolic pressure estimated to be 35 mmHg. Aortic Valve Trisinus/trileaflet aortic valve. Mild focal aortic valve calcification. Pulmonic Valve The pulmonic valve is not well visualized. Great Vessels Normal sized aortic root. Pericardium/Pleural Trivial pericardial effusion. There are no echocardiographic indications of cardiac tamponade. MMode/2D Measurements & Calculations LVIDd: 4.7 cm IVSd: 0.80 cm Ao root diam: 3.3 cm LVIDs: 4.0 cm LVPWd: 0.91 cm RVDd: 3.6 cm FS: 14.0 % LAV(MOD-bp): 51.2 ml LVAd ap4: 29.2 cm2 SV(MOD-sp4): 27.6 ml LAV(MOD-bp) Indexed: 30.0 ml/m2 EDV(MOD-sp4): 89.3 ml LAV(MOD-sp2): 48.0 ml EDV(sp4-el): 93.3 ml LAV(MOD-sp4): 49.7 ml LVAs ap4: 22.5 cm2 ESV(MOD-sp4): 61.8 ml ESV(sp4-el): 64.4 ml EF(MOD-sp4): 30.9 % EF(sp4-el): 31.0 % SV(sp4-el): 28.9 ml LA A4 area: 18.5 cm2 LA dimension(2D): 3.1 cm RA A4 area: 13.7 cm2 Time Measurements MV dec time: 0.21 sec Doppler Measurements & Calculations MV E max eric: 85.8 cm/sec Lat Peak E' Eric: 8.4 cm/sec Med Peak E' Eric: 4.4 cm/sec MV A max eric: 60.1 cm/sec E/E' lat: 10.2 E/E' med: 19.5 MV E/A: 1.4 MV V2 max: 107.6 cm/sec Ao V2 max: 99.8 cm/sec LV V1 max: 73.9 cm/sec MV max P.6 mmHg Ao max P.0 mmHg LV V1 max P.2 mmHg MV V2 mean: 59.8 cm/sec MV mean P.6 mmHg MV V2 VTI: 23.2 cm TR max eric: 282.7 cm/sec MV P1/2t-pr_phl: 108.6 msec TR max P.0 mmHg Interpretation Summary Severe segmental systolic dysfunction (see wall motion). The estimated ejection fraction is 20 %. Mild diffuse mitral valve thickening. Mild papillary muscle dysfunction of the mitral valve. Mild (1+) eccentric mitral valve insufficiency. Trivial tricuspid valve insufficiency. Mild focal aortic valve calcification. Trivial pericardial effusion. There are no echocardiographic indications of cardiac tamponade. Right ventricular systolic pressure estimated to be 35 mmHg. Transmitral diastolic flow velocities suggest diastolic dysfunction (pseudonormal pattern). Ordering Physician: Zakia Edmondson Referring Physician: Andrés Helms Performed By: Diane Gonzalez, RDCS, RVT
--- NOTE | 2020-05-24 13:18 | PCM.CONS.C ---
Problem List (1) Ventricular tachycardia Status: Acute (2) Cardiomyopathy Status: Acute Qualifiers: Cardiomyopathy type: unspecified Qualified Code(s): I42.9 - Cardiomyopathy, unspecified (3) Non-ST elevation [place] (NSTEMI) Status: Chronic (4) Abnormal cardiac enzyme level Status: Acute (5) Hypokalemia Status: Chronic (6) Small cell lung cancer in adult Status: Chronic (7) Brain metastases Status: Chronic (8) Encephalopathy Status: Acute Reason for Consult Date of Consultation: 05/24/20 History of Present Illness: The patient is a 59 year old white female with a history of small cell lung carcinoma with metastatic disease to the brain who is been undergoing chemotherapy/radiation therapy who presented for evaluation of confusion/encephalopathy with findings of abnormal cardiac enzyme levels, telemetry monitoring demonstrating ventricular tachycardia, and echocardiogram demonstrating findings compatible with diminished LV systolic function/LVEF compatible with a cardiomyopathy (etiology uncertain), superimposed upon a past history that was thought concerning for non-ST segment elevation OR (previously evaluated by Dr. Taylor of [facility] with recommendations for continued conservative medical management). The patient presented for recurrent confusion thought compatible with an underlying encephalopathy potentially related to her carcinoma therapy and/or brain metastatic disease. During her hospital stay she has been found to have abnormal cardiac enzyme levels which she was noted to have in January 2019. At that time she was being evaluated for concerns of a non-ST segment elevation OR as well as a history of pulmonary embolism. She underwent evaluation at that time with a transthoracic echocardiogram which suggested overall preserved left ventricular wall motion and systolic function. During this hospital stay, on cardiac monitoring, she has been found to have evidence of PVCs and 1 episode of approximately 9 beats of a wide-complex tachycardia concerning for nonsustained VT. She has gone on to have a follow-up transthoracic echocardiogram which now suggested left ventricular regional wall motion abnormalities with diminished LV systolic function/LVEF compatible with an underlying cardiomyopathy of uncertain etiology (CAD versus non-CAD related). The patient states she does not recall having any concerning chest discomfort or acute respiratory related issues. She has not complained of palpitations. There is been no report of near syncope or syncope. Her main concern, according to her family member present, was her recurrent confusion. Today she states she can remember her family members and appears based upon her family member present back to her baseline self. She, and her family member present, are hopeful for release home today for continued outpatient evaluation care including an outpatient palliative care consultation tomorrow. The patient's troponin I levels were reviewed and they have decreased. Her ECG demonstrated the appearance of sinus tachycardia with a septal OR pattern of indeterminate age and a T wave pattern concerning for myocardial ischemia in the anterior distribution. Her transthoracic echocardiogram findings are as noted below. [] Past Medical History Allergies/Adverse Reactions: Allergies No Known Allergies Allergy (Verified 05/21/20 13:51) REVIEWED ON 01-22-18 Home Medications: Ambulatory Orders Medication Instructions Recorded levetiracetam 250 mg tablet See Rx Instructions .ROUTE 09/03/19 .COMPLEX #180 tab Apixaban [Eliquis] 5 mg PO BID #60 tab 04/27/20 Demeclocycline HCl 300 mg PO DAILY 05/09/20 Oxycodone HCl/Acetaminophen 5 - 325 tab PO TID PRN 05/09/20 [Oxycodone-Acetaminophen 5-325] Furosemide 40 mg PO .Twice week PRN 05/14/20 Dexamethasone [Decadron] 4 mg PO DAILY #15 tab 05/19/20 Levetiracetam [Keppra] 250 mg PO BID 05/21/20 Past Medical History (Chronic Problems): Chronic Problems (Last Reviewed 05/09/20 @ 08:43 by Kareen Mancuso) Lung metastases (Chronic) Hypokalemia (Chronic) Hypomagnesemia (Chronic) Debility (Chronic) Brain metastases (Chronic) SIADH (syndrome of inappropriate ADH production) (Chronic) Non-ST elevation [place] (NSTEMI) (Chronic) Anemia (Chronic) Pulmonary embolism (Chronic) Lung nodule, multiple (Chronic) Regional lymph node metastasis present (Chronic) Chemotherapy management, encounter for (Chronic) Adjustment disorder (Chronic) Small cell lung cancer in adult (Chronic) Seizure disorder (Chronic) Tobacco dependence in remission (Chronic) Surgical History: - Psychiatric History: No pertinent psych hx [employer] WORK[employer] History: No pertinent [employer] WORK[employer] history - *Family History Maternal Family History: Family History (Last Reviewed 05/09/20 @ 08:43 by Kareen Mancuso) Mother Breast cancer Father Cancer Sister Aneurysm History Items: - - no CVA Paternal Family History: Family History (Last Reviewed 05/09/20 @ 08:43 by Kareen Mancuso) Mother Breast cancer Father Cancer Sister Aneurysm History Items: No pertinent history Lives: With Family Smoking Status: Former smoker Alcohol: None Drugs: None Review of Systems - Review of Systems General: Denies: Fever, Night Sweats, Fatigue Cardiovascular: Denies: Chest Discomfort, Shortness of Breath, Orthopnea, PND, Peripheral Edema, Palpitations, Lightheadedness, Dizziness, Near Syncope, Syncope Respiratory: Denies: Cough, Sputum Production, Hemoptysis Gastrointestinal: Denies: Hematemesis, Hematochezia, Melena Genitourinary: Denies: Dysuria, Hematuria Psychiatric: Reports: - - Confusion Subjectve: This is a thin older than stated age appearing 59-year-old white female who appears to be resting comfortably at the moment in no acute distress. Objective: Vital Signs Temp Pulse Resp BP Pulse Ox 98.5 F 105 H 18 118/75 98 05/24/20 08:50 05/24/20 08:50 05/24/20 08:50 05/24/20 08:50 05/24/20 08:50 Oxygen Delivery Method Room Air Weight: 141 lb 7 oz Body Mass Index (BMI) 23.5 Finger Stick Blood Glucose 158 Orthostatic Vital Signs Start: 05/23/20 14:10 Freq: q24h Status: Active Protocol: Activity Type Activity Date Activity User E-Sign Co-Sign Detail Recorded Client Recorded Date Recorded By Document 05/23/20 12:45 T [id number] 05/23/20 14:11 KLT 05/23/20 12:45 Orthostatic Vitals Standing -Blood Pressure (90/60-120/80 mm Hg) 131/90 H -Extremity Use Right Arm -Pulse Rate (60-100 beats/min) 109 H Sitting -Blood Pressure (90/60-120/80 mm Hg) 135/93 H -Extremity Use Right Arm -Pulse Rate (60-100 beats/min) 112 H Lying -Blood Pressure (90/60-120/80 mm Hg) 131/92 H -Extremity Use Right Arm -Pulse Rate (60-100 beats/min) 108 H Intake and Output for Last 24 Hours 05/22/20 05/23/20 05/24/20 23:59 23:59 23:59 Intake Total 2521.25 / 2521.25 2210 / 2210 1300 / 1300 Output Total 200 / 200 2150 / 2150 350 / 350 Balance 2321.25 / 2321.25 60 / 60 950 / 950 General: Awake, Alert, Oriented x 3, Cooperative, No Acute Distress HEENT: Atraumatic, Normocephalic, PERRL, EOMI, Sclera Non Icteric Neck: Supple, Good ROM, No JVD Lungs: Clear to auscultation Cardiovascular: Regular Rhythm, Normal S1, Normal S2 Abdomen: Bowel Sounds Present, Soft, Non Tender Extremities: No edema Psych/Mental Status: - 05/24/20 05:57: WBC 2.4 L, RBC 3.03 L, Hgb 9.8 L, Hct 29.6 L, MCV 97.7, MCH 32.3 H, MCHC 33.1, Plt Count 185, MPV 10.5, Immature Gran % (Auto) 2.900 H, Neut % (Auto) 76.8 H, Lymph % (Auto) 12.4 L, [place] % (Auto) 7.9, Eos % (Auto) 0.0, Baso % (Auto) 0.0, Absolute Neuts (auto) 1.9 L, Nucleated RBC % 0 05/24/20 05:57: Sodium 135 L, Potassium 3.2 L, Chloride 104, Carbon Dioxide 24.0, Anion Gap 7, BUN 19 H, Creatinine 0.67, Est GFR (MDRD) Af Amer 115, Est GFR (MDRD) Non-Af 95, BUN/Creatinine Ratio 28.5 H, Glucose 127 H, Calcium 8.2 L 05/24/20 05:57: Troponin I 0.346 H 05/24/20 05:57: Magnesium 2.5 05/24/20 09:10: Troponin I 0.238 H 05/24/20 11:43: Troponin I 0.227 H Rhythm: Sinus rhythm; PVCs; one episode of 9 beats of wide-complex tachycardia concerning for nonsustained VT EKG: As noted above ECHO: Interpretation Summary Severe segmental systolic dysfunction (see wall motion). The estimated ejection fraction is 20 %. Mild diffuse mitral valve thickening. Mild papillary muscle dysfunction of the mitral valve. Mild (1+) eccentric mitral valve insufficiency. Trivial tricuspid valve insufficiency. Mild focal aortic valve calcification. Trivial pericardial effusion. There are no echocardiographic indications of cardiac tamponade. Right ventricular systolic pressure estimated to be 35 mmHg. Transmitral diastolic flow velocities suggest diastolic dysfunction (pseudonormal pattern). Chest CT Scan: IMPRESSION: No demonstrated pulmonary embolism or arterial dissection. Emphysema of both lungs worse in the upper lobes with the small bolus changes. Stable biapical scarring. Stable calcified granuloma in the peripheral aspect of the right upper lobe. Stable calcified granuloma in the superior segment of the right lower lung. Stable mild increased markings at the lung bases suggestive of scarring. There is no demonstrated pleural abnormality. Assessment/Plan 1. Ventricular tachycardia The patient had an episode appearing compatible with an underlying nonsustained ventricular tachycardia. She appeared to be asymptomatic and hemodynamically stable. This may be secondary to a combination of factors including her electrolyte disorder with hypokalemia as well as findings of an underlying cardiomyopathy (CAD versus non-CAD related). At the present time would be recommended the patient, while in the hospital, be monitored. She should have correction of her electrolyte/hypokalemia. It would be reasonable noting her cardiovascular findings to consider medical management which may include beta-blockers and antiarrhythmic therapy such as amiodarone. Based upon her extensive noncardiovascular complex medical disorders including her lung carcinoma with metastatic disease to the brain it would also be reasonable to continue a conservative medical approach. 2. Cardiomyopathy The patient's recent echocardiogram suggest diminished LV systolic function/LVEF compatible with an underlying cardiomyopathy. Is unclear whether this is ischemic versus nonischemic mediated. At the moment the patient does not appear to have findings compatible with acute systolic CHF. It would be reasonable to continue her on medical management. This will include the addition of beta-elisha therapy. She already is on diuretic therapy as needed. She may need additional agents such as afterload reducing agent such as GRECIA inhibitors or ARB's or agents such as Entresto. Again based upon her complex noncardiovascular medical issues it would be reasonable to continue a conservative medical approach. Thus there are no immediate plans for additional noninvasive or invasive evaluation at this time. 3. Non-ST segment elevation OR The patient has a history in January 2019 of being evaluated for a non-ST segment elevation OR by cardiology. At that time the recommendations were for continued conservative medical management and not to proceed with additional evaluation and care especially invasive studies. 4. Abnormal cardiac enzymes Her cardiac enzymes have been abnormal. Unclear whether this is related to a recent acute cardiovascular event versus potentially being related to her brain metastatic disease and [employer] involvement versus her previous history of pulmonary emboli, etc. At the moment she appears without any acute cardiovascular symptoms. Thus she would continue medical management at this time. 5. Hypokalemia The patient has a history of hypokalemia. This may be related to her history which is included nausea, emesis,/diarrhea. At the moment the recommendation would be for continued potassium supplements to maintain her potassium level within acceptable ranges. This may benefit her underlying cardiac dysrhythmia. 6. Small cell lung carcinoma with metastatic disease to the brain She will continue evaluation care by hematology/oncology and radiation therapy. However based upon this diagnosis and its poor prognosis she is also to be evaluated by palliative care medicine. 7. Encephalopathy She does have a history of encephalopathy. At the present time it is not clear that this is related to any acute cardiovascular event. In the past is been felt this is been related to her oncology diagnosis and brain metastatic disease. Thus she will continue evaluation care per internal medicine as well as hematology/oncology and radiation oncology at this time. Overall, at the present time, the recommendations would be for continued conservative cardiovascular medical management of her findings/conditions. This note was generated using a voice recognition system and there may be incorrect words, spelling or punctuation that were not noted when reviewing the office note prior to saving.
--- NOTE | 2020-05-24 13:56 | DCINST_ITS ---
- Discharge Diagnoses Current Active Problems: Current Active and Chronic Problems (Last Reviewed 05/09/20 @ 08:43 by Kareen Mancuso) Ventricular tachycardia (Acute) Cardiomyopathy (Acute) Abnormal cardiac enzyme level (Acute) You will use the following diet at home:: Cardiac Your food should be the consistency of: Regular Your liquids should be the consistency of: Regular/Thin Discharge Activity: Return to Normal Activity Weight Bearing Status: Weight bearing as tolerated Call your doctor if you observe: Fever of 101 or Higher, Shortness of breath, Dizziness, Fainting spells, Swelling in the ankles, Increased palpitations (irregular heartbeat) Instructions: ED Heart Disease Risk Factors Additional Instructions: follow up with palliative care as scheduled Allergies/Adverse Reactions: Allergies No Known Allergies Allergy (Verified 05/21/20 13:51) REVIEWED ON 01-22-18 Medications to take at Discharge levetiracetam 250 mg tablet See Rx Instructions .ROUTE .COMPLEX #180 tab 09/03/19 Apixaban [Eliquis] 5 mg PO BID #60 tab 04/27/20 Demeclocycline HCl 300 mg PO DAILY 05/09/20 Oxycodone HCl/Acetaminophen [Oxycodone-Acetaminophen 5-325] 5 - 325 tab PO TID PRN 05/09/20 Furosemide 40 mg PO .Twice week PRN 05/14/20 Dexamethasone [Decadron] 4 mg PO DAILY #15 tab 05/19/20 Levetiracetam [Keppra] 250 mg PO BID 05/21/20 Amiodarone HCl [Cordarone] 200 mg PO DAILY #30 tab 05/24/20 Carvedilol [Coreg (Beta Lemuel)] 3.125 mg PO BID #60 tab 05/24/20 Potassium Chloride [K-Dur] 20 meq PO DAILY #30 tab 05/24/20 The following prescriptions were given: Amiodarone HCl [Cordarone] 200 mg PO DAILY #30 tab Transmission Status: Pending to [facility] Carvedilol [Coreg (Beta Lemuel)] 3.125 mg PO BID #60 tab Transmission Status: Pending to [facility] Potassium Chloride [K-Dur] 20 meq PO DAILY #30 tab Transmission Status: Pending to [facility] Orders to be completed after discharge: Miscellaneous Order Location: None Selected Primary Care Physician: Andrés Helms MD [Primary Care Provider] - Please follow up with your Primary Care Physician in: 1-2 weeks Test Results: Test results from this visit will be discussed in further detail at your follow- up appointment, if applicable. Please Follow Up With: Gage Huggins MD When: 1-2 weeks Please Follow Up With: Erik Salmon MD When: 2-3 weeks Proposed Discharge Date: 05/24/20
--- NOTE | 2020-05-24 13:58 | PCM.DC.SUM ---
Discharge Date and Diagnosis - Problem List Patient Problems: Active and Suspected Problems (Last Reviewed 05/09/20 @ 08:43 by Kareen Mancuso) Ventricular tachycardia (Acute) Cardiomyopathy (Acute) Abnormal cardiac enzyme level (Acute) Date of Admission: 05/21/20 Date of Discharge: 05/24/20 - Primary Discharge Diagnosis Acute Problems: Active Problems (Last Reviewed 05/09/20 @ 08:43 by Kareen Mancuso) Ventricular tachycardia (Acute) Cardiomyopathy (Acute) Abnormal cardiac enzyme level (Acute) acute metabolic encephalopathy small cell lung cancer with brain mets - Secondary Discharge Diagnosis Chronic Problems: Chronic Problems (Last Reviewed 05/09/20 @ 08:43 by Kareen Mancuso) Lung metastases (Chronic) Hypokalemia (Chronic) Hypomagnesemia (Chronic) Debility (Chronic) Brain metastases (Chronic) SIADH (syndrome of inappropriate ADH production) (Chronic) Non-ST elevation [place] (NSTEMI) (Chronic) Anemia (Chronic) Pulmonary embolism (Chronic) Lung nodule, multiple (Chronic) Regional lymph node metastasis present (Chronic) Chemotherapy management, encounter for (Chronic) Adjustment disorder (Chronic) Small cell lung cancer in adult (Chronic) Seizure disorder (Chronic) Tobacco dependence in remission (Chronic) Hospital Course and Treatment Imaging Results: 05/24/20 09:20 Echo Complete [ECHO] Routine Diagnostic Data Brain CT 05/21/20 10:11 IMPRESSION: Stable left frontal and temporal lesions. No new lesions. Electronically Signed: Brittany Bailey MD at 11:56 EDT Tel , Service support , Chest CTA 05/23/20 13:20 IMPRESSION: No demonstrated pulmonary embolism or arterial dissection. Emphysema of both lungs worse in the upper lobes with the small bolus changes. Stable biapical scarring. Stable calcified granuloma in the peripheral aspect of the right upper lobe. Stable calcified granuloma in the superior segment of the right lower lung. Stable mild increased markings at the lung bases suggestive of scarring. There is no demonstrated pleural abnormality. Electronically Signed: Dee Draper at 14:56 EDT Tel , Service support , radiation oncology oncology cardiology Operations: None Procedures: 2-D Echocardiogram Summary of Care Provided: The patient is a 59 year old F with an extensive past medical history as outlined which includes small cell lung cancer with metastasis to the brain for which she has undergone radiation and chemotherapy with her last chemo being March 28, 2020. Patient was seen in our facility about a week ago for confusion and CT of the brain done showed a questionable brain bleed so she was transferred to [facility] where she had an MRI of the brain that was done which was not thought to be due to a tumor or blood. She was subsequently discharged home. She subsequently followed up with her radiation oncologist who thought it might be a recurrence of the brain mets causing the lesion in the brain. Patient apparently became confused in the early hours of this morning around 3 AM and stated that patient did not know where she was and did not know her daughter's name and also sat on the toilet for about 45 minutes without doing anything. Family therefore brought her into the ED. At time of review she had no complaints. She was quite confused. In the ED, vitals show temperature of 97.6 Fahrenheit with blood pressure of 136/74, pulse rate of 111 and respiratory rate of 17. Pulse ox was 98% on room air. Chemistry showed sodium of 134 was otherwise unremarkable. CBC showed WBC of 4.1 with hemoglobin of 10 and platelets of 171. CT of the brain showed stable left frontal and temporal lesions with no new lesions. UA showed no evidence of UTI. She was admitted to be managed for acute metabolic encephalopathy likely due to brain metastases from lung cancer. She was started on IV decadrone. Oncology and radiation oncology reviewed patient. Patient's mentation gradually improved to the point where she was alert and oriented x3 and was able to communicate much better than when she came in. Per radiation oncology and oncology recommendations, patient could be discharged on p.o. Decadron 4 mg daily. It was thought that his symptoms were due to a recurrence of her malignancy as per the MRI results. Patient and her expressed interest in palliative care and was set up to follow-up with palliative care once patient was discharged. The day before discharge, patient was noted to be tachycardic. CT of the chest done was negative for any PE. Orthostatics checked were negative and blood pressure was low. She was hydrated with IV fluids. However tachycardia persisted and on the day of discharge, patient was noted to have a 9 beat run of V. tach early in the morning. Cardiology was therefore consulted. Troponins were checked and was initially 0.346 but trended down to 0.227. 2D echo done showed EF of 20% with severe segmental systolic dysfunction of the left ventricle and normal right ventricular size and systolic function with RVSP of 35 mmHg. Cardiology reviewed patient and started her on p.o. amiodarone and carvedilol. In light of her metastatic lung cancer with poor prognosis, cardiology recommended conservative management. Patient was also noted to have potassium of 3.2 on day of discharge and this was replaced. Patient was discharged home on 05/24/2020 with a prescription for p.o. carvedilol, p.o. amiodarone and potassium. She is also to continue her dexamethasone and is to follow-up with her primary care doctor, oncology, radiation oncology and cardiology. Patient seen and examined prior to discharge. She had no complaints and was alert and oriented x3. She wanted to be discharged home. Review of signs otherwise negative. Labs and vitals reviewed. Home medication reviewed and reconciled. O/E: Vital Signs Temp Pulse Resp BP Pulse Ox 98.5 F 101 H 18 118/75 98 05/24/20 08:50 05/24/20 13:30 05/24/20 08:50 05/24/20 08:50 05/24/20 08:50 General: Alert, Cooperative, oriented x 3 today - - looks much older than stated age. HEENT: Atraumatic, PERRLA, EOMI, Normocephalic Oral: Dry Mucosa Neck: Supple, No JVD, Negative Carotid Bruits Lungs: Clear to auscultation, Normal air movement, No rhonchi, No wheeze, No rales Cardiovascular: Regular rate, Regular Rhythm, Normal S1, Normal S2, No murmurs Abdomen: Bowel Sounds Present, Soft, Non Tender, Non-Distended, No Hepato-splenomegaly Extremities: No clubbing, No cyanosis, No edema, Capillary Refill Less than 3 Seconds Skin: No rashes, No breakdown Musculoskeletal: No Tenderness to Palpation of Joints or Extremities Lymphatic: No Cervical, Supraclavicular, or Inguinal Adenopathy Neurological: Cranial nerves II-XII grossly intact, Neuro grossly intact, Motor Exam 5/5 strength throughout Psych/Mental Status: normal affect Plan is for discharge home today. Patient Problems: Active and Suspected Problems (Last Reviewed 05/09/20 @ 08:43 by Kareen Mancuso) Ventricular tachycardia (Acute) Cardiomyopathy (Acute) Abnormal cardiac enzyme level (Acute) - Physical Exam Vitals/I&O's: Vital Signs Temp Pulse Resp BP Pulse Ox 98.5 F 101 H 18 118/75 98 05/24/20 08:50 05/24/20 13:30 05/24/20 08:50 05/24/20 08:50 05/24/20 08:50 Oxygen Delivery Method Room Air Weight: 141 lb 7 oz Body Mass Index (BMI) 23.5 Finger Stick Blood Glucose 158 Orthostatic Vital Signs Start: 05/23/20 14:10 Freq: q24h Status: Active Protocol: Activity Type Activity Date Activity User E-Sign Co-Sign Detail Recorded Client Recorded Date Recorded By Document 05/23/20 12:45 KLT [id number] 05/23/20 14:11 KLT 05/23/20 12:45 Orthostatic Vitals Standing -Blood Pressure (90/60-120/80) 131/90 H -Extremity Use Right Arm -Pulse Rate (60-100) 109 H Sitting -Blood Pressure (90/60-120/80) 135/93 H -Extremity Use Right Arm -Pulse Rate (60-100) 112 H Lying -Blood Pressure (90/60-120/80) 131/92 H -Extremity Use Right Arm -Pulse Rate (60-100) 108 H Intake and Output for Last 24 Hours 05/22/20 05/23/20 05/24/20 23:59 23:59 23:59 Intake Total 2521.25 / 2521.25 2210 / 2210 1700 / 1700 Output Total 200 / 200 2150 / 2150 850 / 850 Balance 2321.25 / 2321.25 60 / 60 850 / 850 Laboratory Results 05/24/20 05:57: WBC 2.4 L, RBC 3.03 L, Hgb 9.8 L, Hct 29.6 L, MCV 97.7, MCH 32.3 H, MCHC 33.1, RDW Std Deviation 50.8 H, RDW Coeff of Sandhya 14.6, Plt Count 185, MPV 10.5, Immature Gran % (Auto) 2.900 H, Neut % (Auto) 76.8 H, Lymph % (Auto) 12.4 L, Barnes % (Auto) 7.9, Eos % (Auto) 0.0, Baso % (Auto) 0.0, Absolute Neuts (auto) 1.9 L, Absolute Lymphs (auto) 0.30 L, Nucleated RBC % 0 05/24/20 05:57: Sodium 135 L, Potassium 3.2 L, Chloride 104, Carbon Dioxide 24.0, Anion Gap 7, BUN 19 H, Creatinine 0.67, Estim Creat Clear Calc 79.34, Est GFR (MDRD) Af Amer 115, Est GFR (MDRD) Non-Af 95, BUN/Creatinine Ratio 28.5 H, Glucose 127 H, Calcium 8.2 L 05/24/20 05:57: Troponin I 0.346 H 05/24/20 05:57: Magnesium 2.5 05/24/20 05:57: Total Bilirubin Pending, Direct Bilirubin Pending, AST Pending, ALT Pending, Alkaline Phosphatase Pending, Total Protein Pending, Albumin Pending, TSH Pending 05/24/20 09:10: Troponin I 0.238 H 05/24/20 11:43: Troponin I 0.227 H Current Medications Amiodarone HCl (Cordarone) 200 mg PO DAILY [facility] Apixaban (Eliquis) 5 mg PO BID [facility] Last Admin: 05/24/20 08:44 Dose: 5 mg Documented by: Carvedilol (Coreg) 3.125 mg PO BID [facility] Demeclocycline HCl (Declomycin) 300 mg PO DAILY [facility] Last Admin: 05/24/20 08:44 Dose: 300 mg Documented by: Dexamethasone (Decadron) 4 mg PO DAILY@0800 [facility] Last Admin: 05/24/20 08:53 Dose: 4 mg Documented by: Furosemide (Lasix) 40 mg PO .Twice week PRN PRN Reason: EDEMA Heparin Sodium (Beef Lung) () 50 units IV UD PRN PRN Reason: Port-a-Cath (VAD)Heparin Flush Heparin Sodium (Beef Lung) () 50 units IV UD PRN PRN Reason: Port-a-Cath (VAD)Heparin Flush Sodium Chloride () 250 mls @ 15 mls/hr IV .[id number] PRN PRN Reason: Additional IVPB Infusion Last Infusion: 05/22/20 21:44 Dose: Infused Documented by: Sodium Chloride () 250 mls @ 15 mls/hr IV .[id number] PRN PRN Reason: Saline Flush Sodium Chloride () 250 mls @ 15 mls/hr IV .[id number] PRN PRN Reason: Additional IVPB Infusion Levetiracetam (Keppra Tablet) 250 mg PO BID [facility] Last Admin: 05/24/20 08:44 Dose: 250 mg Documented by: Nutritional Formula (Lactose Free) (Ensure Enlive) 120 ml PO 4X/DAY [facility] Last Admin: 05/24/20 13:25 Dose: Not Given Documented by: Ondansetron HCl (Zofran) 4 mg IV Q8H PRN PRN PRN Reason: NAUSEA/VOMITING Oxycodone HCl (Oxyir) 2.5 mg PO 0800,1400,2000 PRN PRN Reason: Pain Score 1-10/10 Last Admin: 05/23/20 09:03 Dose: 2.5 mg Documented by: Sodium Chloride () 10 - 40 ml IV UD PRN PRN Reason: Port-a-Cath (VAD) Flush Last Admin: 05/24/20 05:11 Dose: 10 ml Documented by: Sodium Chloride (0.9% Nacl (Sterile) Posiflush) 10 - 40 ml IV UD PRN PRN Reason: Port access or dressing change Last Admin: 05/21/20 11:20 Dose: 10 ml Documented by: Sodium Chloride () 10 - 40 ml IV UD PRN PRN Reason: Port-a-Cath (VAD) Flush Sodium Chloride (0.9% Nacl (Sterile) Posiflush) 10 - 40 ml IV UD PRN PRN Reason: Port access or dressing change Discharge Diet: Low fat/ Low Cholesterol Discharge Activity: Return to Normal Activity Weight Bearing Status: Weight bearing as tolerated Call your doctor if you observe: Fever of 101 or Higher, Shortness of breath, Dizziness, Fainting spells, Swelling in the ankles, Increased palpitations (irregular heartbeat) Home Medications: Medications to take at Discharge levetiracetam 250 mg tablet See Rx Instructions .ROUTE .COMPLEX #180 tab 09/03/19 Apixaban [Eliquis] 5 mg PO BID #60 tab 04/27/20 Demeclocycline HCl 300 mg PO DAILY 05/09/20 Oxycodone HCl/Acetaminophen [Oxycodone-Acetaminophen 5-325] 5 - 325 tab PO TID PRN 05/09/20 Furosemide 40 mg PO .Twice week PRN 05/14/20 Dexamethasone [Decadron] 4 mg PO DAILY #15 tab 05/19/20 Levetiracetam [Keppra] 250 mg PO BID 05/21/20 Amiodarone HCl [Cordarone] 200 mg PO DAILY #30 tab 05/24/20 Carvedilol [Coreg (Beta Lemuel)] 3.125 mg PO BID #60 tab 05/24/20 Potassium Chloride [K-Dur] 20 meq PO DAILY #30 tab 05/24/20 Following Prescriptions Were Given to Patient: Amiodarone HCl [Cordarone] 200 mg PO DAILY #30 tab Transmission Status: Received by SHAREE FERNANDEZ[address] [place] [address] Carvedilol [Coreg (Beta Lemuel)] 3.125 mg PO BID #60 tab Transmission Status: Received by [facility] [id number] [place] [address] Potassium Chloride [K-Dur] 20 meq PO DAILY #30 tab Transmission Status: Received by [address] Other Amb Orders: Miscellaneous Order Location: None Selected Primary Care Physician: Andrés Helms MD [Primary Care Provider] - Please follow up with your Primary Care Physician in: 1-2 weeks Please Follow Up With: Gage Huggins MD When: 1-2 weeks Please Follow Up With: Erik Salmon MD When: 2-3 weeks Patient Instructions: ED Heart Disease Risk Factors Disposition: Home Minutes spent on discharge:: 55 Patient Condition:: Poor Medical Necessity - Tobacco Use Smoking Status: Former smoker Meaningful Use Info Meaningful Use Diagnoses (Choose all that apply): None applicable Inpatient E&M: [id number] [facility]
[2020-05-24 14:23] LABS: AST(SGOT) 44 U/L (15-37); Alanine Aminotransfer ALT/SGPT 30 U/L (13-56); Albumin, Serum 3.2 g/dL (3.2-5.0); Alkaline Phosphatase 68 U/L (45-117); Bilirubin, Direct 0.32 mg/dL (0.00-0.30); Globulin 2.6 g/dL (2.2-4.2); Protein, Total 5.8 g/dL (6.4-8.2); Thyroid Stim Hormone (TSH) 0.52 uIU/mL (0.358-3.74)
[2020-05-24] MEDS: Carvedilol 3.125 MG TABLET PO (15:02)
[2020-05-24] MEDS: Amiodarone 200 MG Tablet PO (15:02)
[2020-05-24 15:08] LABS: Pathologist Review Reviewed
--- NOTE | 2020-05-24 16:06 | CASEMGMT ---
Social Work Note SHIRAZ placed a call to [facility] and spoke with Kyra. SHIRAZ updated Kyra that pt discharged home today. SHIRAZ faxed discharge paperwork to [facility]. Evelia Camarena MARKET MASTER, TRIMMING INSPECTOR
--- NOTE | 2020-05-25 12:38 | CASEMGMT ---
PRINCE MONK Discharge Follow-up Phone Call: MICHELLE: Parish Strata: 3 Call Date: 05/25/2020 Discharge Date: 05/24/2020 Time of Call: 1235 Admitting Diagnosis: Ventricular Tachycardia, cardiomyopathy, sm cell lung cancer w/mets Discharge follow-up call placed to patient's cell phone. Pt's answered the phone and reported pt to be doing excellent since discharge. States pt was able to walk downtown and back and did well but did stop several times to sit down and take breaks. states he did obtain the three prescriptions and pt has taken then as prescribed. Denied any questions related to medications. States he has all three appointments for follow-up written down and [facility] has scheduled a time to meet with them tomorrow (, 05/26/2020) at 9AM to discuss their services. Pt's denied any questions regarding the discharge instructions or other concerns. Forrest Holbrook RN CM
[2020-05-25 14:18] LABS: Pathologist Review Reviewed
== END 2020-05-24 15:36 | disposition home or self-care (01) | DRG 308 ==
LOC: ED 10:51 → MS3 12:29
PROVIDERS: Internal Medicine Cardiovascular Disease; Admitting Provider Student in an Organized Health Care Education/Training Program; Emergency Provider Emergency Medicine; PCP Internal Medicine; Visit Provider Student in an Organized Health Care Education/Training Program
DX: I47.2 Ventricular tachycardia (principal); G93.41 Metabolic encephalopathy; I42.9 Cardiomyopathy, unspecified; C79.31 Secondary malignant neoplasm of brain; C34.90 Malignant neoplasm of unspecified part of unspecified bronchus or lung; C77.9 Secondary and unspecified malignant neoplasm of lymph node, unspecified; E22.2 Syndrome of inappropriate secretion of antidiuretic hormone; E87.6 Hypokalemia; G40.909 Epilepsy, unspecified, not intractable, without status epilepticus; T50.2X5A Adverse effect of carbonic-anhydrase inhibitors, benzothiadiazides and other diuretics, initial encounter; Z86.711 Personal history of pulmonary embolism; Z87.891 Personal history of nicotine dependence; I25.2 Old myocardial infarction; Z86.718 Personal history of other venous thrombosis and embolism
CPT/HCPCS: 36415; 36591; 70450; 71275; 80048; 80053; 80076; 80177; 81001; 82140; 82962; 83735; 84443; 84484; 85025; 87040; 93005; 93306; 97161; 97166; 97802; 99285; J7030; J7040; J7050; Q9967; A4216

== ENCOUNTER → 2020-07-18 12:26 | Outpatient (CLI) | payer MEDICARE, SELFPAY ==
[2019-05-29 09:01] VITALS: BMI 26.5
[2020-05-09 08:44] VITALS: BMI 23.4
[2020-06-27 10:54] VITALS: BMI 23.4
--- NOTE | 2020-07-18 12:28 | MRI_ITS ---
STUDY: MRI BRAIN WITH AND WITHOUT CONTRAST REASON FOR EXAM: Female, 59 years old. follow up brain mets, small cell lung ca -- recheck, rad ts december- january 2020, stage 4 lung ca TECHNIQUE: Standardized multiplanar fat and water weighted pulse sequences were obtained. IV dotarem 12ml was administered for the contrast portion of the examination. COMPARISON: 05/15/2020. FINDINGS: There is Left frontal metastasis has mildly increased in size since the previous study now measures 1.2 x 0.9 cm but appears the 0.9 x 0.6 cm. There is mild increase in the surrounding vasogenic edema. Normal size of the ventricles and extra-axial spaces for the patient''s age. There are a limited number of small white matter hyperintensities, distributed throughout the deep white matter tracts of the cerebral hemispheres, consistent with mild chronic white matter ischemic changes. Normal bilateral basal ganglia. Normal thalami. There is no extra-axial fluid accumulation. Normal flow voids within the major intracranial circulation suggesting patency by spin echo criteria. Normal venous enhancement. Normal sella turcica, pituitary gland, infundibular stalk, optic chiasm and hypothalamus. Normal tectal plate and pineal gland. Normal midbrain, dede and medulla. Normal cerebellum. Normal basal cisterns. Normal bilateral temporal bones. Normal bilateral internal auditory canals. No demonstrated orbital abnormality, within the constraints of a routine brain study. Normal visualized paranasal sinuses. Normal calvarium and skull base. Normal visualized soft tissue structures. Normal visualized upper cervical spine. MRI/Brain W/WO Contrast IMPRESSION: Left frontal metastasis has mildly increased in size since the previous study now measures 1.2 x 0.9 cm but appears the 0.9 x 0.6 cm. There is mild increase in the surrounding vasogenic edema. Electronically Signed: Dee Draper, at 0:48 EST Tel , Service support ,
[2020-07-18] MEDS: 0.9% Saline Lock 10 ML Syringe IV (13:44)
== END ==
PROVIDERS: PCP Internal Medicine; Referring Provider Student in an Organized Health Care Education/Training Program; Visit Provider Student in an Organized Health Care Education/Training Program
DX: C79.31 Secondary malignant neoplasm of brain (principal)
CPT/HCPCS: 70553; A9575; A4216

== ENCOUNTER → 2020-09-12 07:42 | Outpatient (CLI) | payer MEDICARE, SELFPAY ==
[2019-05-29 09:01] VITALS: BMI 26.5
[2020-08-22 11:10] VITALS: BMI 23.0
[2020-08-24 09:49] VITALS: BMI 22.9
--- NOTE | 2020-09-12 07:44 | CT_ITS ---
ACR Level 3 findings have been noted. An addendum which confirms receipt of the report will follow. HISTORY: LUNG CANCER, CHEMO CHECK, FORMER SMOKER, EMPHYSEMA, LUNG CA WITH BRAIN METS-HAD RAD TX ON BRAIN TECHNIQUE: Helically acquired images were obtained of the chest following the intravenous administration of ml of 100mL Isovue-300 Iodinated contrast. as per pulmonary angiogram protocol with 2D MIP reconstructions. A radiation dose optimization technique was used for this scan. COMPARISON: A PET/CT from June 17, [address] PET images available in the axial plane. CT scan of the chest is available from February 25, 2020, and November 30, 2019. FINDINGS: # of images incl. paperwork: [id number] Pulmonary emphysema remains. Pleural parenchymal scarring with calcification laterally within the right upper hemithorax is the same as the 2 previous images. Small focal pleural thickening at the lateral margin of the superior aspect of the left fissure is the same. Chronic bronchitis with bronchial wall thickening and bronchiectasis throughout all lungs, perhaps greatest in the right upper lobe is the same. Additional areas of pleural parenchymal thickening throughout anteriorly remain bilaterally. Some additional nodules within the right lower lobe, series 6 image 76, that are both less than 4 mm in diameter by this same as November 29 and February 25, 2020 studies. Benign calcified granuloma within the apical portions of the right lower lobe are the same. Some additional posterior medial pleural-parenchymal disease abutting the left hemithorax is the same. 3 mm pulmonary nodule within the left lower lobe, series 6 image 68 is the same as the 2 most recent studies. The PET CT is only available is the fusion images, therefore, I cannot change the date of the lung windows for comparison to the May PET/CT. Nodular airspace disease, series 6 image 39 measuring 5 mm within the left upper lobe is the same as the February and November 2019 studies. As discussed on the CT scan of the abdomen and pelvis, within the medial aspect of the right middle lobe, directly adjacent to the pericardial fat, there are 2 new nodules. The largest, the more medial of these 2 nodules measures 8 x 8 mm. The smaller nodule measures 6 x 7 mm. .. No effusions. Within the thoracic spinethere is a mild kyphosis. Mild degenerative wedging to the T7, T8, and T9 vertebral bodies, at the apex of the kyphosis that is the same as that of the previous study of February 25, 2020. Osteopenia is suspected. Some Schmorl's node invaginations are similar. Within the superior endplate of the T4 vertebral body there is a new Schmorl's node insufficiency fracture. It could be acute. No lytic or blastic metastasis are discerned. Vertebral body height otherwise is normal Facets are well aligned. No rib lesions are perceived. Bilateral breast prostheses are present with calcified capsules. This is the same. A right chest wall single lead IJ port has its catheter tip at the SVC right atrial junction. Heart is not enlarged. Thoracic aorta disease with some atherosclerotic plaque with plaque extending into the origin of the left subclavian artery contributing to a mild stenosis.. No aneurysms, stenoses, dissections, nor occlusions. There is right axillary calcified lymph nodes likely related to the other granulomatous disease. Some mediastinal lymph nodes are present. The largest of these is within the subcarinal region. These of the same as the 2 previous studies. No pulmonary emboli. CT/Chest WITH Contrast IMPRESSION: No pulmonary embolism, aortic aneurysm, or aortic dissection. 2 new pulmonary nodules versus possible pericardial lymph nodes within the medial aspect of the right middle lobe. The largest of these measures 8 x 8, and the smaller measures 7 x 6 mm. In the setting of malignancy these are suspicious for possible recurrence. Additional bilateral pulmonary nodules some of which are calcified most of which are not have not changed in size and appearance since the 2 previous studies of February 25, 2020 and November 30, 2019. Prominent comparison to the PET/CT of June 17, 2020, these 2 nodules within the medial aspect of the right middle lobe are new since that time as well. Individualized dose optimization techniques were used for this CT. at 0324 Reported and signed by: Bj Fernandes MD Electronically Signed: Bj Fernandes MD at 3:23 EST Tel , Service support ,
--- NOTE | 2020-09-12 07:44 | CT_ITS ---
ACR Level 3 findings have been noted. An addendum which confirms receipt of the report will follow. HISTORY: LUNG CANCER, CHEMO CHECK, FORMER SMOKER, EMPHYSEMA, LUNG CA WITH BRAIN METS-HAD RAD TX ON BRAIN TECHNIQUE: Helically acquired images were obtained of the abdomen and pelvis following the intravenous administration of 100 ML of Isovue 300 Iodinated contrast. 2D reformats. No oral contrast was administered. A radiation dose optimization technique was used for this scan. COMPARISON: Of the patient's 53 previous radiologic exams at this institution, the Most recent comparison is a PET/CT from June 17, 2020. Study before that is a CT scan of the abdomen and pelvis from November 30, 2019. A report is available from the CT scan of the abdomen from May 03, 2020. Another report from a CT scan of the abdomen is available from February 25, 2020. FINDINGS: # of images incl. paperwork: 337 LUNG BASES: Bilateral breast prostheses with calcifications of the prostatic capsule. Focal indurated tissue within the medial aspect of the right middle lobe appears to be new. Scarring within the lingula. Overall probable pulmonary hyperexpansion. CT abdomen: No lytic or blastic metastasis is perceived. Lumbar spine facet arthropathy. Dextroscoliosis. The gallbladder remains. Liver, spleen, pancreas, and adrenal glands, are normal. The kidneys are normal. The aorta is disease with atherosclerosis. Retroaortic left renal vein that is present as a normal anatomic variant. CT/Abdomen WITH IV Contrast IMPRESSION: Apparent new focal airspace disease that is nodular within the medial aspect of the right middle lobe. The largest nodular component abutting the mediastinal fat measures 7 mm. It is feasible that this is a mediastinal lymph node or a pulmonary nodule. Although it is small at 7 mm, its presence, and absence of being perceived on previous imaging is suspicious for metastatic disease. Follow-up PET CT, biopsy, or follow-up imaging is warranted.. Individualized dose optimization techniques were used for this CT. at 0224 Reported and signed by: Bj Fernandes MD Electronically Signed: Bj Fernandes MD at 2:23 EST Tel , Service support ,
[2020-09-12] MEDS: 0.9% Saline Lock 10 ML Syringe IV (08:00)
== END ==
PROVIDERS: PCP Internal Medicine; Referring Provider Internal Medicine Hematology & Oncology; Visit Provider Internal Medicine Hematology & Oncology
DX: C34.90 Malignant neoplasm of unspecified part of unspecified bronchus or lung (principal); C77.9 Secondary and unspecified malignant neoplasm of lymph node, unspecified
CPT/HCPCS: 71260; 74160; Q9967; A4216

== ENCOUNTER 2020-10-25 10:40 | Outpatient (RCR) | payer MEDICARE, SELFPAY ==
[2019-05-29 09:01] VITALS: BMI 26.5
[2020-09-19 10:06] VITALS: BMI 23.3
[2020-10-25] MEDS: COVID-19 VACC, MRNA(PFIZER)/PF 30 MCG/0.3 ML SYRINGE IM (06:59)
[2020-11-15] MEDS: COVID-19 VACC, MRNA(PFIZER)/PF 30 MCG/0.3 ML SYRINGE IM (07:03)
== END 2021-01-24 23:59 ==
LOC: IMMUN 10:40
PROVIDERS: PCP Internal Medicine; Visit Provider Family Medicine
DX: Z23 Encounter for immunization (principal)
CPT/HCPCS: 0001A; 0002A; 91300

== ENCOUNTER → 2021-02-07 10:11 | Outpatient (CLI) | payer SELFPAY ==
[2019-05-29 09:01] VITALS: BMI 26.5
[2021-02-07 09:27] VITALS: BMI 22.9
[2021-02-07 12:43] LABS: Absolute Lymphocyte Count 1.18 X10^3/uL (0.83-4.51); Absolute Neutrophil Count 8.2 X10^3/uL (2.0-7.7); Basophil# 0.03 X10^3/uL; Basophil% 0.3 % (0-1); Eosinophil# 0.03 X10^3/uL; Eosinophils% 0.3 % (0-5); Hemoglobin 12.5 g/dL (12.0-15.0); Lymphocyte # 1.18 X10^3/ul (0.83-4.51); Lymphocyte % 10.5 % (19-41); Mean Corp Hgb Conc 32.9 g/dL (32-36); Mean Corpuscular Hgb 31.6 pg (27.0-32.0); Mean Corpuscular Volume 96.2 fL (81-99); Mean Platelet Vol. 9.5 fl (6.2-12.0); Monocyte# 1.26 X10^3/uL; Monocyte% 11.2 % (0-10); NRBC Flagged by Analyzer 0 % (0-5); Neutrophil # 8.22 X10^3/uL (2.7-7.7); Neutrophil % 73.2 % (47-70); POSITIVE MORPHOLOGY YES; Platelet Count 340 K/mm3 (150-450); RBC Distribution Width CV 14.8 % (11.6-14.6); RBC Distribution Width SD 51.5 fl (35.1-43.9); Red Blood Count 3.95 M/mm3 (4.2-5.4); White Blood Count 11.2 K/mm3 (4.4-11.0)
[2021-02-07 12:47] LABS: International Normalized Ratio 0.9
[2021-02-07 12:52] LABS: Differential Indicated SCAN CRITERIA MET
[2021-02-07 13:22] LABS: ALB/GLOB Ratio 1.1 RATIO (0.9-2.4); AST(SGOT) 19 U/L (15-37); Alanine Aminotransfer ALT/SGPT 22 U/L (13-56); Albumin, Serum 3.6 g/dL (3.2-5.0); Alkaline Phosphatase 76 U/L (45-117); Anion Gap 9 (5-15); BUN 13 mg/dL (7-18); BUN/Creat Ratio 15.6 RATIO (10-20); Calcium,Total 8.6 mg/dL (8.5-10.1); Chloride 99 mmol/L (98-107); Creatinine, Serum 0.83 mg/dL (0.55-1.02); EST Glomerular Filtration Rate 74 mL/min (>60); Est Glom Filt Rate - Afr Amer 89 mL/min (>60); Globulin 3.2 g/dL (2.2-4.2); Glucose 70 mg/dL (74-106); Potassium 3.9 mmol/L (3.5-5.1); Protein, Total 6.8 g/dL (6.4-8.2); Sodium Level 135 mmol/L (136-145)
[2021-02-07 13:28] LABS: Differential Comment SCANNED
== END ==
PROVIDERS: PCP Internal Medicine; Referring Provider Internal Medicine; Visit Provider Internal Medicine
DX: R23.8 Other skin changes (principal)
CPT/HCPCS: 36415; 80053; 85025; 85610

== ENCOUNTER 2021-09-18 06:41 | Outpatient (CLI) | payer MEDICARE, SELFPAY ==
[2019-05-29 09:01] VITALS: BMI 26.5
--- NOTE | 2021-09-18 06:46 | CT_ITS ---
STUDY: CT CHEST T ABDOMEN WITH CONTRAST REASON FOR EXAM: Female, 61 years old. RESTAGING SCLC ON UNCONVENTIONAL RX RADIATION DOSAGE (If Supplied By Facility): CTDIvol = ( 9.56 ) mGy, DLP = ( 573.64 ) mGycm TECHNIQUE: Transaxial imaging was performed following intravenous administration of IV 100mL Isovue-300. Individualized dose optimization techniques were used for this CT. COMPARISON: Comparison is made with prior examination dated 09/12/2020. FINDINGS: CHEST A right-sided portacatheter seen with the tip in the superior vena cava. Bilateral breast implants are seen. There is rim calcification of both breast implants worse on the right side. Emphysematous changes more prominent in the upper lobes. Calcified granuloma in the peripheral lateral aspect of the right upper lobe. Stable 6.1 mm calcified granuloma in the superior segment of the right lower lobe. Stable 3 mm nodule in the posterior segment of the left lower lobe. There is no demonstrated pleural abnormality. Normal heart and pericardium. Normal mediastinum. Normal hilar regions. Normal unenhanced pulmonary arteries. There is atherosclerotic calcification of the aortic arch with tortuosity and elongation of the aortic arch and descending thoracic aorta. There are multi-level degenerative changes of the thoracic spine. ABDOMEN The visualized lung bases are unremarkable. The visualized portions of the heart are within normal limits. Normal liver. Normal gallbladder and extrahepatic biliary system. Normal spleen. Normal pancreas. Normal bilateral adrenal glands. Normal right kidney. Normal left kidney. Incidental note is made of a left retroaortic renal vein. Normal visualized stomach. Normal small intestine. Normal colon. There is diffuse atherosclerotic calcification of the abdominal aorta, without a demonstrated aneurysm. Normal inferior vena cava. Normal retroperitoneum. Normal abdominal wall. There are diffuse degenerative changes of the visualized lumbar spine. CT/CT Chest AND Abd W/ Contrast IMPRESSION: Stable examination. No acute abnormality is seen. Electronically Signed: Ilya Elliott MD at 8:41 EST ,
[2021-09-18] MEDS: 0.9% Saline Lock 10 ML Syringe IV (07:15)
== END 2021-09-18 23:59 | disposition home or self-care (01) ==
PROVIDERS: PCP Internal Medicine; Referring Provider Internal Medicine Hematology & Oncology; Visit Provider Internal Medicine Hematology & Oncology
DX: C78.00 Secondary malignant neoplasm of unspecified lung (principal); Z98.82 Breast implant status
CPT/HCPCS: 71260; 74160; Q9967; A4216

== ENCOUNTER → 2022-05-11 | Outpatient (CLI) | payer MEDICARE, SELFPAY ==
[2019-05-29 09:01] VITALS: BMI 26.5
[2022-05-11 12:38] LABS: Vitamin B12 354 pg/mL (211-911)
[2022-05-11 12:51] LABS: Ferritin 112 ng/mL (8-252); Iron 118 ug/dL (50-170); Iron Binding Capacity,Total 222 ug/dL (250-450)
== END | disposition home or self-care (01) ==
LOC: BIMLAB 10:56
PROVIDERS: PCP Internal Medicine; Referring Provider Internal Medicine; Visit Provider Internal Medicine
DX: D64.9 Anemia, unspecified (principal)
CPT/HCPCS: 36415; 82607; 82728; 82746; 83540; 83550

== ENCOUNTER → 2022-05-22 | Outpatient (CLI) | payer MEDICARE, SELFPAY ==
[2019-05-29 09:01] VITALS: BMI 26.5
--- NOTE | 2022-05-22 07:55 | CT_ITS ---
STUDY: CT CHEST T ABDOMEN WITH CONTRAST REASON FOR EXAM: Female, 61 years old. F/U SCLC RADIATION DOSAGE (If Supplied By Facility): CTDIvol = ( 7.65 ) mGy, DLP = ( 374.70 ) mGycm TECHNIQUE: Transaxial imaging was performed following intravenous administration of IV 100mL Isovue-370. Individualized dose optimization techniques were used for this CT. COMPARISON: Comparison is made with prior study dated 09/18/2021. FINDINGS: CHEST A right-sided eden catheter is seen with the tip in the superior vena cava. Bilateral breast implants are seen. There is diffuse peripheral calcification of the right breast prosthesis. Mild degree of peripheral calcification of the left breast prostheses. Calcified granuloma in the superior segment of the right lower lobe. There is a 6 mm partially calcified nodule in the peripheral aspect of the right upper lobe as seen on axial image #28. Emphysematous changes with mild scarring at the lung bases. Stable 3 mm nodule in posterior segment of the left lower lobe. There is no demonstrated pleural abnormality. Normal heart and pericardium. Normal mediastinum. Normal hilar regions. Normal unenhanced pulmonary arteries. Normal aorta arch and descending thoracic aorta. There are multi-level degenerative changes of the thoracic spine. Increased kyphosis. Stable mild loss of height of mid dorsal vertebrae. ABDOMEN Normal liver. Normal gallbladder and extrahepatic biliary system. Normal spleen. Normal pancreas. Normal bilateral adrenal glands. Normal right kidney. Normal left kidney. Normal visualized stomach. Normal small intestine. Large amount of fecal material is seen in the colon. The appendix is visualized and appears normal. There is scattered atherosclerotic calcification of the abdominal aorta, without a demonstrated aneurysm. Normal inferior vena cava. Normal retroperitoneum. Normal abdominal wall. There are diffuse degenerative changes of the visualized lumbar spine. CT/CT Chest AND Abd W/ Contrast IMPRESSION: Stable examination. Electronically Signed: Ilya Elliott MD at 15:44 EDT ,
[2022-05-22] MEDS: 0.9% Saline Lock 10 ML Syringe IV (08:18)
== END | disposition home or self-care (01) ==
PROVIDERS: PCP Internal Medicine; Referring Provider Internal Medicine Hematology & Oncology; Visit Provider Internal Medicine Hematology & Oncology
DX: C34.90 Malignant neoplasm of unspecified part of unspecified bronchus or lung (principal)
CPT/HCPCS: 71260; 74160; Q9967; A4216

== ENCOUNTER → 2023-09-12 | Outpatient (CLI) | payer MEDICARE, SELFPAY ==
[2019-05-29 09:01] VITALS: BMI 26.5
--- NOTE | 2023-09-12 08:05 | CT_ITS ---
STUDY: CT CHEST T ABDOMEN WITH CONTRAST REASON FOR EXAM: Female, 63 years old. F/U SCLC IV CONTRAST ONLY RADIATION DOSAGE (If Supplied By Facility): CTDIvol = ( 8.72 ) mGy, DLP = ( 402.56 ) mGycm TECHNIQUE: Transaxial imaging was performed following intravenous administration of IV 100mL Isovue-300. Multiplanar coronal and sagittal images were reformatted. Individualized dose optimization techniques were used for this CT. COMPARISON: Comparison is made with prior study dated May 22, 2022. FINDINGS: CHEST A right-sided Port-A-Cath are seen with the tip in the superior vena cava. Bilateral breast prostheses with calcification along the rim of both prostheses more prominent on the right side. This is unchanged. Stable calcified granuloma in the superior segment of the right lower lobe. Stable 6 mm partially calcified nodule in the peripheral lateral aspect of the right upper lobe. Mild scarring at the lung apices. Stable 3 mm calcified nodule in the posterior segment of the left lower lobe. There is no demonstrated pleural abnormality. Normal heart and pericardium. Normal mediastinum. Normal hilar regions. Normal unenhanced pulmonary arteries. Normal aorta arch and descending thoracic aorta. There is stable loss of height of the mid dorsal vertebrae. Degenerative changes of the thoracic spine. ABDOMEN Normal liver. Normal gallbladder and extrahepatic biliary system. Normal spleen. Normal pancreas. Normal bilateral adrenal glands. Stable tiny cyst in the lateral aspect of the right kidney. Normal left kidney. Normal visualized stomach. Normal small intestine. There are multiple colonic diverticula consistent with diverticulosis. The appendix is visualized and appears normal. There is scattered atherosclerotic calcification of the abdominal aorta, without a demonstrated aneurysm. Normal inferior vena cava. Normal retroperitoneum. Normal abdominal wall. Normal osseous structures. CT/CT Chest AND Abd W/ Contrast IMPRESSION: Stable examination. Electronically Signed: Ilya Elliott MD at 14:04 EST ,
--- OUTSIDE RECORDS SUMMARY | 2023-09-12 08:34 | XMS RPT_ITS | CCD ---
Author Name Unknown Address [address] [place] [address] Organization [facility] Results Test Name Value Interpretation Reference Range Facil ity Summary Purpose Family History No Family History Records Found Advance Directives No Advanced Directives Records Found Additional Source Comments INFORMATION SOURCE (unrecogn ized section and content) FOR RECORDS PERTAINING TO PATIENTS WHO ARE OR HAVE BEEN ENROLLED IN A CHEMICAL DEPENDENCY/SUBSTANCEABUSE PROGRAM, SOME INFORMATION MAY BE OMITTED. This clinical summary was aggregated from multiple sources. Caution should be exercised in using it in the provision of clinical care. This summary normalizes information from multiple sources, and as a consequence, information in this document may materially change the coding, format and clinical context of patient data. In addition, data may be omitted in some cases. CLINICAL DECISIONS SHOULD BE BASED ON THE PRIMARY CLINICAL RECORDS. [facility]. provides no warranty or guarantee of the accuracy or completeness of information in this document.
[2023-09-12] MEDS: 0.9% Saline Lock 10 ML Syringe IV (08:40)
== END | disposition home or self-care (01) ==
LOC: CT 08:05
PROVIDERS: PCP Internal Medicine; Referring Provider Internal Medicine Hematology & Oncology; Visit Provider Internal Medicine Hematology & Oncology
DX: C34.90 Malignant neoplasm of unspecified part of unspecified bronchus or lung (principal)
CPT/HCPCS: 71260; 74160; Q9967; A4216

== ENCOUNTER 2023-10-08 08:24 | Outpatient (CLI) | payer MEDICARE, SELFPAY ==
[2019-05-29 09:01] VITALS: BMI 26.5
[2023-10-08 08:38] VITALS: BP 135/75; PULSE 77; RESP 16; TEMP 36.2; O2SAT 100; BMI 20.7
[2023-10-08] MEDS: Cosyntropin 0.25 MG Vial IM (08:52)
[2023-10-08 09:59] VITALS: BP 127/74; PULSE 72; RESP 16; TEMP 36.4; O2SAT 100
== END 2023-10-08 08:25 | disposition home or self-care (01) ==
LOC: MEDOUTP 08:25
PROVIDERS: PCP Internal Medicine; Referring Provider Internal Medicine Endocrinology, Diabetes & Metabolism; Visit Provider Internal Medicine Endocrinology, Diabetes & Metabolism
DX: E27.49 Other adrenocortical insufficiency (principal)
CPT/HCPCS: 36591; 82533; 96372; A4216; J0834

== ENCOUNTER → 2024-09-16 | Outpatient (CLI) | payer MEDICARE, SELFPAY ==
[2019-05-29 09:01] VITALS: BMI 26.5
--- NOTE | 2024-09-16 07:39 | CT_ITS ---
PROCEDURE: CT CHEST AND ABD W/ CONTRAST TECHNIQUE: Chest and abdomen CT with intravenous contrast. CONTRAST: COMPARISON: None. FINDINGS: CT CHEST: Hardware: Right chest infusion port. Lymph nodes: No mediastinal, hilar, or axillary lymphadenopathy. Heart and Vasculature: Normal heart size. No pericardial effusion. Thoracic aorta and pulmonary arter ies are unremarkable. Lungs and Airways: Unchanged left upper lobe 6 mm pulmonary nodule. Similar scattered calcified gran ulomas. Similar scattered mild scarring. Mild to moderate centrilobular emphysema. Pleura: No pleural effusion. No pneumothorax. Bilateral partially calcified breast implants are in CT ABDOMEN: Liver: Unremarkable. Gallbladder: Unremarkable. Spleen: Unremarkable. Pancreas: Unremarkable. Adrenals: Unremarkable. Kidneys: Right kidney subcentimeter hypodense lesion is too small to characterize but likely benign. Bowel: Scattered colonic diverticuli the visualized loops. Lymph nodes: No suspicious lymph node enlargement at the upper abdomen. Vasculature: Moderate atherosclerosis. Peritoneum / Retroperitoneum: No ascites or free air at the upper abdomen. Bones: Unremarkable. CT/CT Chest AND Abd W/ Contrast IMPRESSION: No significant interval change. One or more dose reduction techniques were used (e.g., Automated exposure contr ol, adjustment of the mA and/or kV according to patient size, use of iterative reconstruction technique). Reading Location: [id number]
[2024-09-16] MEDS: 0.9% Saline Lock 10 ML Syringe IV (08:01)
== END | disposition home or self-care (01) ==
PROVIDERS: PCP Internal Medicine; Referring Provider Internal Medicine Hematology & Oncology; Visit Provider Internal Medicine Hematology & Oncology
DX: C34.90 Malignant neoplasm of unspecified part of unspecified bronchus or lung (principal); C77.9 Secondary and unspecified malignant neoplasm of lymph node, unspecified
CPT/HCPCS: 71260; 74160; Q9967; A4216